=== PATIENT | female | born 1945 | race Caucasian/White ===

== ENCOUNTER → 2017-04-04 | Outpatient (CLI) | payer OTHER ==
[~2017-04-04] MED LIST: ALL300 PO; APIX1TAB3 PO; ASPI81TA28 PO; CALCTAB7 PO; CRDCD180 PO; FOLI1TAB7 PO; FRS/40 PO; INSU1INJ7 SC; INSUINJ14 SC; LEVO25TA PO; LSN25 PO; LUTE20CA PO; MAGN400T6 PO; METO25TA56 PO; MULT-190 PO; MULT-506 PO; MYCO500T5 PO; OMEG10007 PO; SIMV-151 PO; TACR0.5C3 PO; TACR1CAP7 PO; ZNT150 PO
--- NOTE | 2017-04-04 11:53 | DIAGNOSTIC IMAGING REPORT ---
CHEST 2 VIEWS ROUTINE CLINICAL HISTORY: Cough. Kidney transplant. COMPARISON STUDY: Chest radiograph November 11, 2016. FINDINGS: Lung volumes are normal. There is no pneumothorax or pleural effusion. There is mild right lower lung opacity and interstitial thickening. There is minimal left basilar opacity which favors atelectasis. Cardiac size is normal. Mediastinal contours are normal. Note is made of right hilar prominence. IMPRESSION: 1. Mild right lower lung opacity with interstitial thickening. An infectious process such as bronchopneumonia is favored. Asymmetric pulmonary edema could appear similar although is considered less likely. Radiographic follow-up to ensure resolution is recommended. 2. Right hilar prominence which is probably due to pulmonary vessels although an enlarged lymph node could appear similar and this could be assessed on subsequent chest radiograph. Electronically signed by: Burak Solis M.D. 04/04/2017 11:52 AM Dictated Date/Time: 04/04/2017 11:49 AM
== END | disposition home or self-care (01) ==
LOC: C.RAD1850 11:20
PROVIDERS: ATTEND Physician Assistant
DX: R05 Cough (principal); Z94.0 Kidney transplant status

== ENCOUNTER → 2017-05-02 | Outpatient (CLI) | payer OTHER ==
[2017-05-02 09:58] LABS: ESTIMATED AVERAGE GLUCOSE 134 mg/dl; HA1C FLAG Normal (Normal)
[2017-05-02 09:59] LABS: ALT/SGPT 24 U/L (12-78); AST/SGOT 19 U/L (15-37); CHOLESTEROL 99 mg/dl (0-200); CHOLESTEROL/HDL RATIO 3.8; HDL CHOLESTEROL 26 mg/dl; TRIGLYCERIDES 379 mg/dl (0-150); VERY LOW DENSITY LIPOPROT CALC 76 mg/dl
[2017-05-02 10:24] LABS: RATIO 440.4 mcg/mg (0-30.0)
--- NOTE | 2017-05-20 11:48 | CODING QUERY MEDICAL NECESSITY ---
SUPPORTING DIAGNOSIS NEEDED Dr. Isidro, A supporting diagnosis is required for the test/procedure performed on this patient in order for us to be reimbursed by the patient's insurance. Please provide a supporting diagnosis for the following test/procedure listed below next to the test name along with your signature. *If there is no additional diagnosis for this patient that would support the following test/procedure please document that below next to the test/procedure. Test(s)/Procedure(s) that require a supporting diagnosis: * [id number] GLYCATED HEMOGLOBIN DIAGNOSIS: DATE OF SERVICE: 05/02/17 Provider Signature: Date: Thank you Nikhil Bernal [facility] Information Management Once completed, please kindly fax back to [phone] For questions please call [phone]
== END | disposition home or self-care (01) ==
LOC: C.LAB1850 07:40
PROVIDERS: ATTEND Internal Medicine
DX: J20.9 Acute bronchitis, unspecified (principal); R93.8 Abnormal findings on diagnostic imaging of other specified body structures; E11.9 Type 2 diabetes mellitus without complications; Z48.298 Encounter for aftercare following other organ transplant; Z94.0 Kidney transplant status; Z51.81 Encounter for therapeutic drug level monitoring; Z79.899 Other long term (current) drug therapy

== ENCOUNTER → 2017-05-02 | Outpatient (CLI) | payer OTHER ==
--- NOTE | 2017-05-02 10:16 | DIAGNOSTIC IMAGING REPORT ---
CHEST 2 VIEWS ROUTINE CLINICAL HISTORY: R93.8 Abnormal chest [id number] COMPARISON STUDY: 04/04/2017 FINDINGS: The cardiac and mediastinal contours are normal. There is no evidence of focal pulmonary consolidation. There is no evidence of failure. No pleural effusions are visualized.[ There is a mild thoracic dextroscoliosis. There has been interval resolution of the previously described right basal airspace opacities. IMPRESSION: No active disease in the chest. Electronically signed by: Matthew Donaldson M.D. 05/02/2017 10:14 AM Dictated Date/Time: 05/02/2017 10:14 AM
== END | disposition home or self-care (01) ==
LOC: C.RAD1850 10:03
PROVIDERS: ATTEND Physician Assistant
DX: R93.8 Abnormal findings on diagnostic imaging of other specified body structures (principal)

== ENCOUNTER → 2017-08-09 | Outpatient (CLI) | payer OTHER ==
[~2017-08-09] MED LIST changes: -METO25TA56 PO
[2017-08-09 09:38] LABS: HEMATOCRIT 43.9 % (37-47); MEAN CELL VOLUME 95.6 fL (80-100); MEAN CORPUSCULAR HEMOGLOBIN 30.3 pg (25-34); MEAN CORPUSCULAR HGB CONC 31.7 g/dl (32-36); MEAN PLATELET VOLUME 12.4 fL (7.4-10.4); PLATELET COUNT 147 K/uL (130-400); RED BLOOD COUNT 4.59 M/uL (4.2-5.4); WHITE BLOOD COUNT 8.68 K/uL (4.8-10.8)
[2017-08-09 09:49] LABS: BLOOD UREA NITROGEN 27 mg/dl (7-18); BUN/CREATININE RATIO 33.2 (10-20); CALCIUM 9.9 mg/dl (8.5-10.1); CARBON DIOXIDE 28 mmol/L (21-32); CHLORIDE 108 mmol/L (98-107); CREATININE 0.82 mg/dl (0.60-1.20); GLUCOSE 122 mg/dl (70-99); MAGNESIUM 1.7 mg/dl (1.8-2.4); PHOSPHORUS 2.8 mg/dl (2.5-4.9); POTASSIUM 4.2 mmol/L (3.5-5.1); SODIUM 142 mmol/L (136-145)
[2017-08-09 09:52] LABS: ESTIMATED AVERAGE GLUCOSE 123 mg/dl; HA1C FLAG Normal (Normal)
[2017-08-11 05:31] LABS: FK506 TACROLIMUS HIGHLY SENS 7.7 MCG/L (5-20)
== END | disposition home or self-care (01) ==
LOC: C.LAB1850 07:56
PROVIDERS: ATTEND Internal Medicine
DX: Z48.298 Encounter for aftercare following other organ transplant (principal); Z09 Encounter for follow-up examination after completed treatment for conditions other than malignant neoplasm; Z94.0 Kidney transplant status; E11.9 Type 2 diabetes mellitus without complications; Z79.899 Other long term (current) drug therapy

== ENCOUNTER → 2017-09-02 | Outpatient (CLI) | payer OTHER ==
[2017-09-02 11:02] LABS: ALT/SGPT 22 U/L (12-78); BLOOD UREA NITROGEN 21 mg/dl (7-18); BUN/CREATININE RATIO 26.2 (10-20); CALCIUM 9.9 mg/dl (8.5-10.1); CARBON DIOXIDE 29 mmol/L (21-32); CHLORIDE 107 mmol/L (98-107); CREATININE 0.81 mg/dl (0.60-1.20); GLUCOSE 136 mg/dl (70-99); POTASSIUM 4.2 mmol/L (3.5-5.1); SODIUM 143 mmol/L (136-145)
[2017-09-02 11:13] LABS: ALB/GLOB RATIO 1.2 (0.9-2); ALKALINE PHOSPHATASE 78 U/L (45-117); AST/SGOT 17 U/L (15-37)
== END | disposition home or self-care (01) ==
LOC: C.LAB1850 09:44
PROVIDERS: ATTEND Internal Medicine Endocrinology, Diabetes & Metabolism
DX: M81.0 Age-related osteoporosis without current pathological fracture (principal); E03.9 Hypothyroidism, unspecified

== ENCOUNTER → 2017-09-05 | Outpatient (CLI) | payer OTHER ==
[2017-09-05 12:55] LABS: CALCIUM URINE 14.8 mg/dl
== END | disposition home or self-care (01) ==
LOC: C.LAB1850 10:43
PROVIDERS: ATTEND Internal Medicine Endocrinology, Diabetes & Metabolism
DX: M81.0 Age-related osteoporosis without current pathological fracture (principal)

== ENCOUNTER → 2017-09-12 | Outpatient (CLI) | payer OTHER ==
--- NOTE | 2017-09-13 07:07 | DIAGNOSTIC IMAGING REPORT ---
NUCLEAR MEDICINE PARATHYROID SCAN CLINICAL HISTORY: E03.9 [id number] Neoplasm of uncertain behavior of skin. COMPARISON STUDY: No previous studies for comparison. TECHNIQUE: 22 mCi of technetium 99m Cardiolite was injected IV at 2:55 PM on September 12, 2017. Planar and SPECT imaging was performed 15 minutes and 3 hours following injection. FINDINGS: Expected radiotracer deposition is noted on the early and delayed images. Moderate radiotracer uptake is identified within the thyroid gland with mild retention No significant radiotracer retention is identified on the delayed images. No areas of abnormal radiotracer uptake are identified. IMPRESSION: 1. No areas of abnormal radiotracer uptake. 2. Moderate radiotracer uptake by the thyroid gland with mild retention. Electronically signed by: Burak Solis M.D. 09/13/2017 7:06 AM Dictated Date/Time: 09/12/2017 7:06 PM
== END | disposition home or self-care (01) ==
LOC: C.NUCL 14:36
PROVIDERS: ATTEND Internal Medicine Endocrinology, Diabetes & Metabolism
DX: D48.5 Neoplasm of uncertain behavior of skin (principal); E03.9 Hypothyroidism, unspecified

== ENCOUNTER → 2017-09-26 | Outpatient (CLI) | payer OTHER ==
[~2017-09-26] MED LIST changes: +METO25TA56 PO
--- NOTE | 2017-09-27 07:25 | MAMMOGRAPHY REPORT ---
BILATERAL DIGITAL SCREENING MAMMOGRAM TOMOSYNTHESIS WITH CAD: 09/26/2017 CLINICAL HISTORY: Routine screening. Patient has no complaints. TECHNIQUE: Breast tomosynthesis in addition to standard 2D mammography was performed. Current study was also evaluated with a Computer Aided Detection (CAD) system. COMPARISON: Comparison is made to exams dated: 09/23/2016 mammogram, 09/22/2015 mammogram, 4 mammogram, 09/19/2013 mammogram, 09/13/2012 mammogram, and 09/06/2011 mammogram - [facility]. BREAST COMPOSITION: There are scattered areas of fibroglandular density in both breasts. FINDINGS: There is a 4 mm ovoid mass in the upper outer middle one third of the right breast, for wh ich additional targeted ultrasound and possible additional mammographic views are recommended. There are scattered benign coarse calcifications bilaterally. A tortuous, ectatic and partially calc ified vessel is again seen in the far superior left breast on the MLO view. No other suspicious mass, architectural distortion or cluster of microcalcifications is seen. IMPRESSION: ACR BI-RADS CATEGORY 0: INCOMPLETE EVALUATION: NEED ADDITIONAL IMAGING EVALUATION The newly visualized 4 mm ovoid mass in the upper outer right breast needs additional evaluation. The patient will be called to schedule an appointment. Approximately 10% of breast cancers are not detected with mammography. A negative mammographic report should not delay biopsy if a clinically suggestive mass is present. Porsche Armas M.D. ay/:09/26/2017 14:47:28 Executive Services Administrator: Melina GREENFIELD(Juarez)(M), [facility] letter sent: Addl Imaging 0 BI-RADS Code: ACR BI-RADS Category 0: Incomplete Evaluation: Need Additional Imaging Evaluation
== END | disposition home or self-care (01) ==
LOC: C.MAMM 09:22
PROVIDERS: ATTEND Internal Medicine
DX: Z12.31 Encounter for screening mammogram for malignant neoplasm of breast (principal); N63.11 Unspecified lump in the right breast, upper outer quadrant

== ENCOUNTER 2017-12-20 14:36 | Emergency (ER) | payer OTHER ==
[~2017-12-20] VITALS: Ht 162.6 cm; Wt 87.0 kg
[~2017-12-20 14:36] MED LIST changes: -FOLI1TAB7 PO; +FOLI1TAB8 PO; -LUTE20CA PO; -MAGN400T6 PO; -MULT-190 PO; -SIMV-151 PO
[2017-12-20 14:39] VITALS: TEMP 36.4; Ht 162.6 cm; Wt 87.0 kg
[2017-12-20 15:23] LABS: BASO % 0.5 %; BASO ABS # 0.04 K/uL (0-0.2); EOS % 4.5 %; EOS ABS # 0.37 K/uL (0-0.5); HEMATOCRIT 40.3 % (37-47); HEMOGLOBIN 13.6 g/dL (12.0-16.0); IG# 0.06 K/uL (0.00-0.02); LYMPH % 26.3 %; LYMPH ABS # 2.16 K/uL (1.2-3.4); MEAN CELL VOLUME 94.2 fL (80-100); MEAN CORPUSCULAR HEMOGLOBIN 31.8 pg (25-34); MEAN CORPUSCULAR HGB CONC 33.7 g/dl (32-36); MEAN PLATELET VOLUME 11.1 fL (7.4-10.4); MONO ABS # 0.49 K/uL (0.11-0.59); NEUT ABS # 5.08 K/uL (1.4-6.5); PLATELET COUNT 140 K/uL (130-400); RED CELL DISTRIBUTION WIDTH CV 16.8 % (11.5-14.5); RED CELL DISTRIBUTION WIDTH SD 57.1 fL (36.4-46.3)
[2017-12-20 15:42] LABS: CALCIUM 10.2 mg/dl (8.5-10.1); CREATININE 0.78 mg/dl (0.60-1.20); POTASSIUM 3.8 mmol/L (3.5-5.1)
--- NOTE | 2017-12-20 15:45 | DIAGNOSTIC IMAGING REPORT ---
DUPLEX HEMODIALYSIS ACCESS CLINICAL HISTORY: L upper arm swelling pain. Edema. TECHNIQUE: Venous Doppler and real-time ultrasound COMPARISON STUDY: None FINDINGS: Patient's arteriovenous fistula is patent. Superior to the fistula involving the muscular structures the upper arm is a 7 x 2 x 2.5 cm intramuscular hematoma. No additional collections are identified. Visualized venous structures are patent. IMPRESSION: 1. Intramuscular hematoma superior to the patient's AV fistula measuring 7 x 2.5 cm. 2. The fistula itself is patent. The above report was generated using voice recognition software. It may contain grammatical, syntax or spelling errors. Electronically signed by: Jean Carlos Ortega M.D. 12/20/2017 3:44 PM Dictated Date/Time: 12/20/2017 3:42 PM
[2017-12-20 15:46] LABS: INR 1.1 (0.9-1.1); PTT PATIENT 30.3 SECONDS (21.0-31.0)
[2017-12-20 16:32] VITALS: BP 148/77; PULSE 68; O2SAT 97
[2017-12-20] MEDS ORDERED: LISI-461 PO (16:40)
[2017-12-20] MEDS ORDERED: DILT240C48 PO (16:40)
[2017-12-20] MEDS ORDERED: TACR1CAP PO (16:40)
[2017-12-20] MEDS ORDERED: FEXO1TAB49 PO (16:40)
[2017-12-20] MEDS ORDERED: INSU1INJ2 SQ (16:40)
[2017-12-20] MEDS ORDERED: LEVO50TA6 PO (16:40)
[2017-12-20] MEDS ORDERED: INSDGIPEN SQ (16:40)
[2017-12-20] MEDS ORDERED: LSX40 PO (16:40)
[2017-12-20] MEDS ORDERED: ZOLE5INJ INJ (16:42)
[2017-12-20] MEDS ORDERED: SIMV-151 PO (16:43)
[2017-12-20] MEDS ORDERED: LUTE20CA PO (16:43)
[2017-12-20] MEDS ORDERED: MULT-190 PO (16:43)
[2017-12-20] MEDS ORDERED: MAGN400T6 PO (16:43)
--- NOTE | 2017-12-21 19:57 | EMERGENCY ROOM VISIT NOTE ---
ED Visit Note First contact with patient: 14:46 Chief Complaint: Swelling and bruising to my left arm. History of Present Illness: Ms. Page is a 72-year-old white female who ambulates into the ED accompanied by male friend complaining of swelling and bruising to the left arm. Patient had a fistula inserted into her left upper arm prior to her kidney transplant to receive dialysis. Patient reports approximately 1.5 weeks ago she noted some bruising in the area of her fistula. Since that time she has noted increase in bruising, swelling and pain in the area. She was seen by her grocery clerk marking today who encouraged her to come to the ED for further evaluation and ultrasound. Associated with the swelling patient also reports that she has been having intermittent pain in the area of the swelling just superior to her fistula site. Currently she rates her discomfort 3/10 but does report intermittently gets much more severe. Currently she describes her pain as a pressure sensation but does report intermittently when her pain becomes severe its more of a sharp sensation. She has not identified any aggravating or alleviating factors related to the pain or swelling. She has not taken any medications for pain or swelling prior to arrival at the hospital. She denies any associated symptoms including elbow pain, recent trauma to the elbow/fistula location, arm weakness/numbness/tingling, previous complications of her fistula. Review of Systems: As noted above in history of present illness. Past Medical History: As previously noted and (1) Acute maxillary sinusitis (2) Atrial Fibrillation (3) Benign essential hypertension (4) Diabetes mellitus type 2 (5) Hyperlipidemia Nec/Nos (6) Hypertension Nos (7) Osteoporosis Nos Surgical Problems: (1) History of renal transplant (2) Kidney Transplant Status Current Medications: Medications Dose Route/Sig Max Daily Dose Days Date Category Dose Instructions Reclast (Zoledronic Acid) 5 Mg/100 Ml Inj 1 Dose INJ YEARLY 12/20/17 Reported Prograf (Tacrolimus) 1 Mg Cap 1 Mg PO AMPM 12/20/17 Reported Lisinopril 10 Mg Tab 10 Mg PO DAILY 12/20/17 Reported Levothyroxine Sodium 50 Mcg Tab 50 Mcg PO QAM 12/20/17 Reported Novolog Penfill (Insulin Aspart) 100 Unit/Ml Inj SQ ACHS PRN 12/20/17 Reported Lantus Solostar (Insulin Glargine) 100 Unit/Ml Inj 5-10 Units SQ QAM 12/20/17 Reported ACCORDING TO BSG Furosemide 40 Mg Tab 40 Mg PO BID 12/20/17 Reported Cartia Xt (Diltiazem Hcl Coated Beads) 240 Mg Cap 240 Mg PO DAILY 12/20/17 Reported Mariya Allergy (Fexofenadine Hcl) 180 Mg Tab 1 Tab PO DAILY 14 12/20/17 Reported Lopressor (Metoprolol Tartrate) 25 Mg Tab 1 Tab PO BID 90 09/16/17 Reported Ranitidine HCl 150 Mg Tab 150 Mg PO BID 01/19/15 Rx Mycophenolate Mofetil 500 Mg Tab 500 Mg PO BID 11/25/14 Reported Aspirin Ec (Aspirin) 81 Mg Tab 81 Mg PO DAILY 11/25/14 Reported Allopurinol 300 Mg Tab 300 Mg PO BID 11/25/14 Reported Eliquis (Apixaban) 5 Mg Tab 5 Mg PO BID 11/25/14 Reported Simvastatin 20 Mg Tab 20 Mg PO QPM 11/11/14 Reported Ocuvite Preservision (Multivitamins/Minerals) 1 Tab Tab 1 Tab PO BID 11/11/14 Reported Mag-Ox (Magnesium Oxide) 400 Mg Tab 400 Mg PO BID 11/11/14 Reported Lutein 20 Mg Cap 20 Mg PO DAILY 11/11/14 Reported Folvite (Folic Acid) 1 Mg Tab 1 Mg PO DAILY 05/07/12 Reported Caltrate 600 Plus (Calcium Carbonate-Vitamin D W/) 1 Tab Tab 1 Tab PO BID 05/07/12 Reported Sharon-3 (Fish Oil) 1 Ea Cap 2,000 Mg PO BID 10/30/10 Reported Multivitamin (Multivitamins) Tab 1 Tab PO DAILY 05/23/06 Reported Allergies to Medications: Patient denies. Social History: Patient is not currently employed; she feels safe in her home environment; she denies tobacco use. Physical Examination: Vital Signs: Date Time Temp Pulse Resp B/P (MAP) Pulse Ox O2 Delivery O2 Flow Rate FiO2 12/20/17 16:32 68 16 148/77 97 12/20/17 14:39 36.4 82 16 190/107 97 Room Air GENERAL: 72-year-old female in mild distress due to pain, nontoxic-appearing, afebrile and hemodynamically stable. Patient does appear anxious. NEUROLOGICAL: Awake, alert and oriented to person, place and time. Answering questions appropriately and following commands. Normal gait. Good hand eye coordination. No focal motor or sensory deficits. SKIN: Warm, dry and pink. THORAX: Lungs sounds are clear to auscultation and equal bilaterally with symmetrical chest wall. ABDOMEN: Soft and nontender. Positive bowel sounds in all quadrants. No guarding, rigidity or organomegaly. LEFT UPPER EXTREMITY: No gross bony deformity. No tenderness in the shoulder, elbow, forearm, wrist or hand. Over the anterior aspect of the arm in the distal humerus area patient fistula is located. The fistula is soft and nontender. There is a positive thrill. From the mid upper arm to the mid lower arm anteriorly patient has ecchymosis and swelling. Patient has full range of motion of the forearm, wrist or hand. Throughout the extremity the skin was warm and pink and capillary refill is brisk. She is able to distinguish light sensations through all dermatomes. ED Course: Patient is assessed as noted above. Patient's medication list was reviewed. Duplex Hemodialysis Access Ultrasound was reviewed by myself and read by the radiologist showing intramuscular hematoma superior to the patient's AV fistula measuring 7 x 2.5 cm. Fistula patent. Patient was offered pain medication and refused. Patient's case was consulted with Dr. Brooks, vascular surgeon; he recommended office visit in 2 days or return to the ED for severe pain sooner. Patient's case was reviewed with Dr. Jacobs; we agreed on diagnostic approach, treatment, disposition and plan. Patient was educated about today's findings and instructed on her treatment plan ; she verbalized understanding and agreement with this plan. Clinical Impression: Left upper extremity hematoma. Decision-Making: Initially my differential diagnosis I considered hematoma, abscess, malfunctioning fistula and other causes. Disposition: Patient discharged home in stable condition accompanied by her ; prior to departure she was reassessed and subjectively reported she was feeling the same. Plan: Patient was encouraged to continue her current medications as prescribed. Patient was encouraged use 650 mg of acetaminophen every 6 hours as needed for pain. Patient was encouraged to avoid heavy lifting. Patient was encouraged cold Dr. Brooks's office for follow-up or return to the ED for worsening/severe pain. Patient was encouraged return also to the ED for any new/concerning symptoms.
--- NOTE | 2017-12-22 00:23 | EMERGENCY ROOM VISIT NOTE ---
ED Visit Note First contact with patient: 14:46 HPI: [id number] with pmhx ESRD with LUE hematoma. Plan: US demonstrates Intramuscular hematoma superior to the patient's AV fistula measuring 7 x 2.5cm. Fistula patent. PA d/w Dr. Brooks, vascular surgery , recs: OK for d/c with outpatient f/u. Patient left department before I was able to personally examine the patient. I reviewed the patient's past medical history, medications, and visit nursing notes. I discussed the case with the physician freezer assistant and agree with the findings and plan as documented in the physician assistants note.
== END 2017-12-20 16:35 | disposition home or self-care (01) ==
LOC: C.EDB 14:38 → C.EDD 16:35
DX: T82.868A Thrombosis due to vascular prosthetic devices, implants and grafts, initial encounter (principal); Y83.2 Surgical operation with anastomosis, bypass or graft as the cause of abnormal reaction of the patient, or of later complication, without mention of misadventure at the time of the procedure; Z94.0 Kidney transplant status; Z79.899 Other long term (current) drug therapy; E11.9 Type 2 diabetes mellitus without complications; E78.5 Hyperlipidemia, unspecified; M79.602 Pain in left arm

== ENCOUNTER 2018-01-04 07:19 | Day surgery (SDC) | payer OTHER ==
[2017-12-30 09:56] VITALS: Ht 162.6 cm; Wt 86.2 kg
--- NOTE | 2017-12-30 10:33 | PAT Medication Instructions ---
Service Date Dec 30, 2017. Current Home Medication List Allopurinol (Allopurinol), 300 MG PO BID Apixaban (Eliquis), 5 MG PO BID Aspirin (Aspirin Ec), 81 MG PO QAM Calcium Carbonate-Vitamin D W/ (Caltrate 600 Plus), 1 TAB PO BID Diltiazem Hcl Coated Beads (Cartia Xt), 240 MG PO QAM Fexofenadine Hcl (Mariya Allergy), 1 TAB PO DAILY PRN for PRN Fish Oil ([place]-3), 2,000 MG PO BID Folic Acid (Folvite), 1 MG PO QAM Furosemide (Furosemide), 40 MG PO BID Heparin Sod (Porcine) (Heparin Sodium), 1 DOSE SQ UD Insulin Aspart (Novolog Penfill), SQ ACHS PRN for SLIDING SCALE Insulin Glargine (Lantus Solostar), 5-10 UNITS SQ QAM Levothyroxine Sodium (Levothyroxine Sodium), 50 MCG PO QAM Lisinopril (Lisinopril), 10 MG PO HS Lutein (Lutein), 20 MG PO QPM Magnesium Oxide (Mag-Ox), 400 MG PO BID Metoprolol Tartrate (Lopressor) (Lopressor), 1 TAB PO BID Multivitamin (Multivitamin), 1 TAB PO QAM Mycophenolate Mofetil (Cellcept), 1 TAB PO BID Ocuvite Preservision (Ocuvite Preservision), 1 TAB PO BID Ranitidine (Zantac), 150 MG PO BID Simvastatin (Simvastatin), 20 MG PO QPM Tacrolimus (Prograf), 1 MG PO AMPM Zoledronic Acid (Reclast), 1 DOSE INJ YEARLY Medication Instructions For Your Scheduled Surgery - Continue as directed: Zoledronic Acid (Reclast), 1 DOSE INJ YEARLY - Hold the following medications starting 12/30/17: Fish Oil ([place]-3), 2,000 MG PO BID - Check with surgeon and prescribing physician for instructions: Heparin Sod (Porcine) (Heparin Sodium), 1 DOSE SQ UD (prescribed for perioperative transition) Apixaban (Eliquis), 5 MG PO BID Aspirin (Aspirin Ec), 81 MG PO QAM Tacrolimus (Prograf), 1 MG PO AMPM Mycophenolate Mofetil (Cellcept), 1 TAB PO BID - Hold the following medications 24 hours prior to surgery: Lisinopril (Lisinopril), 10 MG PO HS - Hold the following medications the morning of surgery: Calcium Carbonate-Vitamin D W/ (Caltrate 600 Plus), 1 TAB PO BID Fexofenadine Hcl (Mariya Allergy), 1 TAB PO DAILY PRN for PRN Folic Acid (Folvite), 1 MG PO QAM Furosemide (Furosemide), 40 MG PO BID Insulin Aspart (Novolog Penfill), SQ ACHS PRN for SLIDING SCALE Magnesium Oxide (Mag-Ox), 400 MG PO BID Multivitamin (Multivitamin), 1 TAB PO QAM Ocuvite Preservision (Ocuvite Preservision), 1 TAB PO BID - Take the following medications the morning of surgery with a sip of water: Ranitidine (Zantac), 150 MG PO BID Metoprolol Tartrate (Lopressor) (Lopressor), 1 TAB PO BID Levothyroxine Sodium (Levothyroxine Sodium), 50 MCG PO QAM Allopurinol (Allopurinol), 300 MG PO BID Diltiazem Hcl Coated Beads (Cartia Xt), 240 MG PO QAM - Take the following medications as scheduled the night before surgery: Tacrolimus (Prograf), 1 MG PO AMPM Ranitidine (Zantac), 150 MG PO BID Simvastatin (Simvastatin), 20 MG PO QPM Ocuvite Preservision (Ocuvite Preservision), 1 TAB PO BID Mycophenolate Mofetil (Cellcept), 1 TAB PO BID Metoprolol Tartrate (Lopressor) (Lopressor), 1 TAB PO BID Lutein (Lutein), 20 MG PO QPM Insulin Aspart (Novolog Penfill), SQ ACHS PRN for SLIDING SCALE Furosemide (Furosemide), 40 MG PO BID Fexofenadine Hcl (Mariya Allergy), 1 TAB PO DAILY PRN for PRN (if needed) Allopurinol (Allopurinol), 300 MG PO BID - For Insulin Dependent Diabetic patients: Test blood sugar A.M. of surgery. - If Blood sugar greater than 150, take half of your regular dose of: Insulin Glargine (Lantus Solostar),take half of your normal dose - If Blood sugar less than 150, do not take any: Insulin Glargine (Lantus Solostar), 5-10 UNITS SQ QAM If you have any questions please call us at [phone] or [phone] or [phone]
[2017-12-30 11:31] LABS: BASO % 0.6 %; BASO ABS # 0.04 K/uL (0-0.2); EOS % 3.9 %; EOS ABS # 0.27 K/uL (0-0.5); HEMATOCRIT 39.9 % (37-47); HEMOGLOBIN 13.2 g/dL (12.0-16.0); IG# 0.01 K/uL (0.00-0.02); LYMPH % 20.3 %; LYMPH ABS # 1.42 K/uL (1.2-3.4); MEAN CELL VOLUME 96.1 fL (80-100); MEAN CORPUSCULAR HEMOGLOBIN 31.8 pg (25-34); MEAN CORPUSCULAR HGB CONC 33.1 g/dl (32-36); MEAN PLATELET VOLUME 11.6 fL (7.4-10.4); MONO % 7.6 %; MONO ABS # 0.53 K/uL (0.11-0.59); NEUT % 67.5 %; NEUT ABS # 4.73 K/uL (1.4-6.5); PLATELET COUNT 138 K/uL (130-400); RED CELL DISTRIBUTION WIDTH CV 16.4 % (11.5-14.5)
[2017-12-30 11:40] LABS: CREATININE 0.88 mg/dl (0.60-1.20); INR 1.1 (0.9-1.1); PTT PATIENT 29.4 SECONDS (21.0-31.0)
[2017-12-30 11:41] LABS: POTASSIUM 4.3 mmol/L (3.5-5.1)
[~2018-01-04] VITALS: Ht 162.6 cm; Wt 86.2 kg
--- NOTE | 2018-01-04 06:00 | History and Physical ---
History & Physical Date of Service Jan 04, 2018. History & Physical CC: Venous aneurysm left arm fistula HPI: Ms. Page states that she had a fistula created 20 some years ago and had it utilized for hemodialysis for about a year before getting a kidney transplant. She states that her renal transplant has been working well and she has not had to use her AV fistula in over 20 years. She does keep it there; however, in case something would happen where she did require its use. She states about a week ago, she developed an area of purple ecchymosis on her left upper arm that she was somewhat concerned about. She states that she did not hit her arm on anything that she was aware of and that ecchymosis like this has never occurred before. She states that the area became more and more purple and extended down to her elbow and proximal forearm, as well as becoming painful and swollen. Due to these concerns, she went to see her jury consultant who had her evaluated to determine whether her AV fistula was the problem. The ultrasound performed in the emergency department at [facility] did not indicate any active bleeding, but it did demonstrate a rather significant left upper arm hematoma. The patient also complains of a left arm arteriovenous fistula venous aneurysm which she states has been there for a long time. Denies other complaints at this time including headaches, fevers, chills, dizziness, chest pain, shortness of breath, abdominal pain, nausea, vomiting, diarrhea, constipation, dysuria, hematuria, rest pain, claudication, nonhealing wounds or ulcers or other complaints. ALLERGIES: ADHESIVE BANDAGES. HOME MEDICATIONS: Reconciled in the chart and include the following: Mariya, allopurinol, apixaban, aspirin, caltrate, CellCept, diltiazem, fish oil, folic acid, furosemide, Lantus, levothyroxine, lisinopril, Lutein, magnesium oxide, metoprolol tartrate, multivitamin, NovoLog 8, Ocuvite PreserVision, Prograf, ranitidine, and simvastatin. PAST MEDICAL HISTORY: Positive for insulin-dependent diabetes mellitus, hyperlipidemia, end-stage renal disease, renal transplant recipient, gout, hypertension, coronary artery disease, thyroid disease and atrial fibrillation. PAST SURGICAL HISTORY: Positive for renal transplant in 1995, left upper extremity AV fistula creation in 1994, appendectomy, cholecystectomy, total hysterectomy, repair of incisional hernia and tonsillectomy. FAMILY HISTORY: Positive for renal disease in her father and paternal relatives. SOCIAL HISTORY: Negative for a history of tobacco, alcohol or drug use. REVIEW OF SYSTEMS: Negative for fatigue, fevers, sweats, weight loss, exercise intolerance, abnormal moles or rashes, vision changes or photophobia, ear pain, as well as sore throat, cough, shortness of breath, chest pain, palpitations, edema or syncope, abdominal pain, nausea, vomiting, diarrhea, constipation, dysuria, hematuria, muscle weakness, headaches, dizziness, numbness or seizures. PHYSICAL EXAMINATION: The patient's vital signs are as follows: Blood pressure 138/68 in the right arm, heart rate 72, and oxygen 97% on room air. The patient is 162.56 cm tall and weighs 86.1 kilograms. Constitutional: In general, patient is a healthy-appearing, for age, well-nourished, well- developed elderly female in no acute distress. She ambulates without assistance and is active, alert and oriented x4 with normal recent and remote memory. Head is normocephalic, atraumatic. Eyes are EOMI. ENMT demonstrates no hearing loss, rhinorrhea or pharyngeal erythema. Her neck is supple, nontender with midline trachea without masses or crepitus. Lung exam demonstrates no dyspnea. They are clear to auscultation bilaterally, although somewhat decreased throughout. Cardiovascular exam demonstrates a nondisplaced apical impulse. Irregular rhythm. She has no murmurs or rubs noted, however. Peripheral pulses full and equal in all extremities unless otherwise noted, specifically they are normal in her carotid, brachial, radial and femoral pulses. Her lower extremity distal pulses are +1. She has brisk capillary refill, no signs of ischemia. Of note, her left upper arm AV fistula has an excellent thrill and bruit but does appear to have a rather large venous aneurysm of the proximal end. She has old ecchymosis throughout her left upper arm antecubital and proximal forearm area. This is soft and without erythema. This is mildly tender and the appearance is in various stages of resolution. Her abdomen is soft, nontender with normoactive bowel sounds in all 4 quadrants without guarding or rebound. There is no flank or CVA tenderness. Her musculoskeletal exam demonstrates normal tone and strength for age. Bilateral upper extremities demonstrate no cyanosis, edema, varicosities or ulcers. The patient's bilateral lower extremities demonstrate no cyanosis, edema, clubbing, varicosities, or ulcers. Neurologic: Grossly intact cranial nerves and grossly intact sensation. ASSESSMENT AND PLAN: End-stage renal disease. 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 Spontaneous bleed of her left upper arm. PLAN: Patient is admitted for a revision of her left arm av fistula. I have discussed the risks options and benefits of the procedure with the patient. The patient understands the risks options and benefits and agrees to the procedure.
[~2018-01-04 07:19] MED LIST changes: +CEFAZOLIN 2000MG IV PUSH 15 ML IV SCH; -CRDCD180 PO; +DILT240C48 PO; +FEXO1TAB49 PO; -FRS/40 PO; +HPRI5M SQ; +INSDGIPEN SQ; +INSU1INJ2 SQ; -INSU1INJ7 SC; -INSUINJ14 SC; +LACTATED RINGER'S 1000ML 1,000 ML IV SCH; -LEVO25TA PO; +LEVO50TA6 PO; +LISI-461 PO; -LSN25 PO; +LSX40 PO; +LUTE20CA PO; +MAGN400T6 PO; +MULT-190 PO; +MYCO500T4 PO; -MYCO500T5 PO; +SIMV-151 PO; +SODIUM CHLORIDE 0.9% 1000ML IV SCH; -TACR0.5C3 PO; +TACR1CAP PO; -TACR1CAP7 PO; -ZNT150 PO; +ZNTT/150 PO; +ZOLE5INJ INJ
[2018-01-04] MEDS ORDERED: PROPOFOL IV EMULSION 10 MG/ML 20 ML VIAL IV ONE ×2 (08:10→09:45)
[2018-01-04] MEDS ORDERED: LIDOCAINE HCL 2% 2 ML VIAL (20MG/ML) ONE (08:10)
[2018-01-04] MEDS ORDERED: FENTANYL CITRATE INJ 50 MCG/1 ML 2 ML VIAL ONE (08:11)
[2018-01-04 08:18] VITALS: BP 153/70; PULSE 69; TEMP 36.7; O2SAT 98
[2018-01-04] MEDS ORDERED: EpHEDrine SULFATE INJ 50 MG/ML AMP IV PRN (08:30)
[2018-01-04] MEDS ORDERED: FENTANYL CITRATE INJ 50 MCG/1 ML 2 ML VIAL IV PRN (08:30)
[2018-01-04] MEDS ORDERED: ATROPINE SULFATE 0.1 MG/ML 5ML SYR IV PRN (08:30)
[2018-01-04 08:38] LABS: CALCIUM 9.4 mg/dl (8.5-10.1); CREATININE 0.81 mg/dl (0.60-1.20); POTASSIUM 3.7 mmol/L (3.5-5.1)
--- NOTE | 2018-01-04 08:41 | History & Physical Bridge Note ---
H&P Re-Evaluation Bridge Note: I have examined the patient, reviewed the History & Physical and in the interval since the performance of the History & Physical I have noted the following changes of clinical significance: No changes noted
[2018-01-04] MEDS ORDERED: THROMBIN FOR SOLN 20000 UNIT KIT ONE (08:46)
[2018-01-04] MEDS ORDERED: HEPARIN SOD (PORCINE) 1000 UNIT/ML 10 ML VIAL ONE ×2 (08:46→09:33)
[2018-01-04] MEDS ORDERED: LIDOCAINE HCL 1% 20 ML VIAL ONE (08:46)
[2018-01-04] MEDS ORDERED: BUPIVACAINE/EPINEPHRINE 0.5% MPF 1:200,000 30 ML VIAL ONE (08:46)
[2018-01-04] MEDS ORDERED: GELATIN SPONGE 12-7MM ONE (08:46)
--- NOTE | 2018-01-04 10:25 | [facility] Post Operative Brief Note ---
Immediate Operative Summary Operative Date Jan 04, 2018. Pre-Operative Diagnosis 1. End-stage renal disease 2. 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 Spontaneous bleed of her left upper arm Post-Operative Diagnosis 1. End-stage renal disease 2. 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 Miguel Angel Brooks Farm Manager Surgeon(s) Lizbet Encarnacion MD ( Vascular Surgeon Estimated Blood Loss 50 mL Findings Consistent with Post-Op Diagnosis Specimens A. Venous Aneurysm Left Upper Extremity Drains None Anesthesia Type MAC Complication(s) none Disposition Accompanied Pt To Recover: no Disposition: Recovery Room / PACU
[2018-01-04] MEDS ORDERED: OXYC-57 PO (10:29)
--- NOTE | 2018-01-04 10:30 | Discharge Instructions ---
Discharge Instructions Date of Service Jan 04, 2018. Visit Reason for Visit: End Stage Renal Disease Discharge Discharge Diagnosis / Problem: Venous aneurysm left arm fistula Discharge Goals Goal(s): Therapeutic intervention Activity Recommendations Activity Limitations: per Instructions/Follow-up section Anesthesia . Post Anesthesia Instructions: If you have had General Anesthesia or IV Sedation: * Do not drive today. * Resume driving when surgeon permits. * Do not make important decisions or sign legal documents today. * Call surgeon for: 1. Temperature elevations greater than 101 degrees F. 2. Uncontrollable pain. 3. Excessive bleeding. 4. Persistent nausea and vomiting. 5. Medication intolerance (nausea, vomiting or rash). * For nausea and vomiting use only clear liquids such as: tea, soda, bouillon until nausea subsides, then gradually increase diet as tolerated. * If you have any concerns or questions, call your surgeon's office. If physician is unavailable and it is an emergency, call 911 or go to the nearest emergency room. . Instructions / Follow-Up Instructions / Follow-Up Call [phone] to schedule a follow up appointment if one not already scheduled. ACTIVITY RECOMMENDATIONS: See Above SPECIAL CARE INSTRUCTIONS: Call your doctor if: * Temperature above 101 degrees * Pain not relieved by pain medicine ordered * There is increased drainage or redness from any incision * You have any unanswered questions or concerns. Diet Recommendations Recommended Home Diet: resume previous diet Procedures Procedures Performed: Revision Left Upper Extremity Arteriovenous Fistula with Interposition Graft Pending Studies Studies pending at discharge: no Medical Emergencies . Who to Call and When: Medical Emergencies: If at any time you feel your situation is an emergency, please call 911 immediately. . Non-Emergent Contact Non-Emergency issues call your: Surgeon . . "Provider Documentation" section prepared by Miguel Angel Brooks. .
--- NOTE | 2018-01-04 11:12 | Anesthesiology Progress Note ---
Anesthesia Post Op Note Date & Time Jan 04, 2018 at 11:12 Vital Signs Pain Intensity: 0 Vital Signs Past 12 Hours Date Time Temp Pulse Resp B/P (MAP) Pulse Ox O2 Delivery O2 Flow Rate FiO2 01/04/18 11:10 36 63 16 141/74 95 Room Air 01/04/18 11:00 63 16 154/72 96 Room Air 01/04/18 10:52 36.2 67 18 143/93 100 Oxymask 10 01/04/18 08:18 36.7 69 18 153/70 (97) 98 Room Air Notes Mental Status: alert / awake / arousable, participated in evaluation Pt Amnestic to Procedure: Yes Nausea / Vomiting: adequately controlled Pain: adequately controlled Airway Patency, RR, SpO2: stable & adequate BP & HR: stable & adequate Hydration State: stable & adequate Anesthetic Complications: no major complications apparent
[2018-01-04 11:16] VITALS: BP 155/74; PULSE 68; TEMP 36.6; O2SAT 96
[2018-01-04 11:55] VITALS: BP 155/73; PULSE 68; TEMP 36.5; O2SAT 97
--- NOTE | 2018-01-04 12:17 | OPERATIVE REPORT ---
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 SURGEON: Dr. Miguel Angel Brooks. FISHING FLOATS ASSEMBLER: Dr. Lizbet Encarnacion. ASSESSMENT: Venous aneurysm of left brachiocephalic arteriovenous fistula. ESTIMATED BLOOD LOSS: 50 mL. ANESTHESIA: Monitored anesthesia care plus local. COMPLICATIONS: None. INDICATIONS: Mrs. Delmi Page is a 72-year-old woman with history of end-stage renal disease status post left arm AV fistula in 1994 status post a renal transplant in 1995, diabetes, hyperlipidemia, hypertension, coronary artery disease, atrial fibrillation who presented with a large aneurysmal portion of the venous segment of her left brachiocephalic AV fistula. She has not used her fistula for over 20 years after her kidney transplant. She says that about a week ago she developed ecchymosis of her left arm that she related to bleeding from her fistula. She additionally has a large aneurysmal segment of the cephalic vein which is uncomfortable for her. For this reason, she was recommended to undergo fistula revision with resection of the aneurysmal segment. The risks, benefits and alternatives were discussed with the patient and she consented to the procedure. DESCRIPTION OF PROCEDURE: The patient was taken to the operating room and placed in supine position. Her left arm was prepped and draped in the usual sterile fashion. A safety timeout was performed and the patient, procedure, and sidedness were correctly identified. Local anesthesia was used to anesthetize the skin overlying the large venous aneurysm just proximal to the crease of the elbow. A 10 cm incision was made overlying the aneurysmal segment of the cephalic vein. Bovie electrocautery was used to divide subcutaneous tissue. The venous aneurysm was dissected circumferentially down to the arteriovenous anastomosis. The brachial artery was identified and also dissected circumferentially. The patient was systemically heparinized with 3000 units of IV heparin. After several minutes, the brachial artery, proximal and distal to the arteriovenous anastomosis was clamped. The clamp was then applied to the cephalic vein. The aneurysm was incised with an 11 blade scalpel and the lumen of the vein was assessed. There are multiple areas of thick calcifications. At this point, it was felt that she would be better served by an interposition bypass instead of the aneurysmorrhaphy as the segment that would require resection was too significant to allow for a primary jsmh-vz-vwlc anastomosis. For this reason, given the caliber of the vein, and bifurcated aortic graft was brought onto the field. The 11 mm limb of a bifurcated graft was used. This was anastomosed to the arterial portion. This was anastomosed to the proximal aspect of the vein nearing the arteriovenous anastomosis. This was completed with a CV5 suture in a running fashion. The remaining cephalic vein was then cut to length to eliminate the calcified portion as well as the aneurysmal portion. The graft was then cut to length, leaving approximately interposition graft of approximately 3 cm. The graft to vein anastomosis was completed with a CV5 [place]-Bo suture in a running fashion. All vessels were back bled prior to completion of the anastomosis, and the graft was de-aired. A single 5-0 stitch was placed at the graft vein anastomosis for hemostasis. Surgicel thrombin was applied to both anastomoses and manual pressure was held. Hemostasis was achieved. Subcutaneous tissues were closed with 3-0 Vicryl in a running fashion. Skin was reapproximated with 4-0 Vicryl in a running subcuticular fashion. Dermabond skin glue was applied to the skin. A palpable thrill was appreciated in the fistula at the close of the case. Sterile dressing was applied. The patient was transferred to the recovery area in stable condition. There were no immediate complications. Dr. Miguel Angel Brooks was present for the entire procedure. I attest to the content of the Intraoperative Record and any orders documented therein. Any exception s are noted below.
== END 2018-01-04 12:13 | disposition home or self-care (01) ==
LOC: C.ACU 07:19
PROVIDERS: ATTEND Surgery Vascular Surgery
DX: T82.898A Other specified complication of vascular prosthetic devices, implants and grafts, initial encounter (principal); Y83.8 Other surgical procedures as the cause of abnormal reaction of the patient, or of later complication, without mention of misadventure at the time of the procedure; E11.9 Type 2 diabetes mellitus without complications; E78.5 Hyperlipidemia, unspecified; N18.6 End stage renal disease; I12.0 Hypertensive chronic kidney disease with stage 5 chronic kidney disease or end stage renal disease; M10.9 Gout, unspecified; I25.10 Atherosclerotic heart disease of native coronary artery without angina pectoris; I48.91 Unspecified atrial fibrillation; E07.9 Disorder of thyroid, unspecified; Z94.0 Kidney transplant status; Z79.899 Other long term (current) drug therapy; Z79.82 Long term (current) use of aspirin; Z79.4 Long term (current) use of insulin

== ENCOUNTER → 2018-02-13 | Outpatient (CLI) | payer OTHER ==
[~2018-02-13] MED LIST changes: -CEFAZOLIN 2000MG IV PUSH 15 ML IV SCH; -LACTATED RINGER'S 1000ML 1,000 ML IV SCH; +OXYC-57 PO; +RANI150T85 PO; -SODIUM CHLORIDE 0.9% 1000ML IV SCH; -ZNTT/150 PO
[2018-02-13 10:01] LABS: HEMOGLOBIN A1C 6.1 % (4.5-5.6)
== END | disposition home or self-care (01) ==
LOC: C.LAB1850 07:29
PROVIDERS: ATTEND Internal Medicine
DX: T82.898A Other specified complication of vascular prosthetic devices, implants and grafts, initial encounter (principal); Y83.2 Surgical operation with anastomosis, bypass or graft as the cause of abnormal reaction of the patient, or of later complication, without mention of misadventure at the time of the procedure

== ENCOUNTER → 2018-03-03 | Outpatient (CLI) | payer OTHER ==
[2018-03-03 10:29] LABS: CREATININE RANDOM URINE 90.6 mg/dl
== END | disposition home or self-care (01) ==
LOC: C.LAB1850 09:13
PROVIDERS: ATTEND Internal Medicine
DX: T82.898A Other specified complication of vascular prosthetic devices, implants and grafts, initial encounter (principal); X58.XXXA Exposure to other specified factors, initial encounter; M81.0 Age-related osteoporosis without current pathological fracture

== ENCOUNTER 2020-04-05 16:15 | Observation (INO) ==
[2020-04-05] MEDS ORDERED: METOPROLOL TARTRATE 1 MG/ML VIAL IV STA (16:42)
[2020-04-05] MEDS ORDERED: SODIUM CHLORIDE 0.9% 500 ML IV SCH (16:45)
--- NOTE | 2020-04-05 16:49 | Emergency Department Note ---
History of Present Illness General Chief Complaint: Hip Pain Stated Complaint: FELL IN SHOWER, LANDED ON RIGHT HIP Time Seen by Provider: 04/05/20 16:25 Source: patient Mode of arrival: ambulatory Limitations: no limitations History of Present Illness Provider Complaint: + fall Onset (ago): 7 hour(s) Loss of Consciousness: + no Location - Extremities: Right: hip Maximum Pain Intensity: 5 Current Pain Intensity: 4 Context: + other (Slipped in shower) Associated symptoms: + denies other symptoms Treatments prior to arrival: + none HPI narrative: The patient is a 74-year-old female who presents to the ED with a chief complaint of some pain in the right hip and right abdomen after slipping in the tub this morning and striking herself on the tub. The patient states that she takes Eliquis. She contacted her doctor and was referred here because of possibility of bleeding. The patient has a history of A. fib. She states that she is not always in A. fib. The patient denies any chest pains or shortness of breath. Denies striking her head. Denies any neurological symptoms. She does have some discomfort in the right hip region just below the buttocks. She also has some mild pain in the right lateral flank/abdomen area. Home Medications Home Medications Medication Instructions Recorded Confirmed Type multivitamin 1 tab PO QAM #0 05/23/06 04/05/20 History omega 4-pfp-lui-fish oil [Fish Oil] 2,000 mg PO BID #0 10/30/10 04/05/20 History folic acid 1 mg PO QAM #0 05/07/12 04/05/20 History lutein 20 mg PO QAM #0 11/11/14 04/05/20 History simvastatin 20 mg PO HS #0 11/11/14 04/05/20 History allopurinol 300 mg PO BID #0 11/25/14 04/05/20 History furosemide 40 mg PO BID #0 12/20/17 04/05/20 History mycophenolate mofetil 500 mg PO .ON HOLD 90 Days #180 tab 12/30/17 04/05/20 History insulin aspart U-100 100 unit/mL 1 unit SUBCUT AC ml 06/15/19 04/05/20 History (3 mL) subcutaneous pen lancets 33 gauge #100 ea 06/15/19 02/07/20 History calcium carbonate-vitamin D3 600 1 tab PO QAM #0 tab 07/23/19 04/05/20 History mg (1,500 mg)-800 unit tablet pen needle, diabetic 32 gauge x #200 ea 07/24/19 02/07/20 Rx 32" tacrolimus 0.5 mg capsule 0.5 mg PO BID cap 08/28/19 04/05/20 History zoledronic jaez-fbdqkbnb-oefqo 5 5 mg IV YEARLY #0 08/31/19 04/05/20 History mg/100 mL in mannitol 5 %-water intravenous piggybck insulin glargine 100 unit/mL (3 5 unit SUBCUT QAM #15 ml 11/08/19 04/05/20 Rx mL) subcutaneous pen metoprolol tartrate 25 mg tablet 25 mg PO BID 90 Days #180 tab 11/27/19 04/05/20 Rx diltiazem HCl 240 mg 240 mg PO QAM #90 cap 12/03/19 04/05/20 Rx capsule,extended release 24 hr acyclovir 400 mg tablet 400 mg PO BID 12/18/19 04/05/20 History bortezomib 3.5 mg solution for 0 mg SUBCUT WEEKLY ea 12/18/19 04/05/20 History injection cyclophosphamide 50 mg tablet 600 mg PO WEEKLY tab 12/18/19 04/05/20 History dexamethasone 4 mg tablet 40 mg PO WK tab 12/18/19 04/05/20 History prochlorperazine maleate 10 mg 10 mg PO Q6H PRN 12/18/19 04/05/20 History tablet blood sugar diagnostic #100 ea 12/21/19 02/07/20 Rx lisinopril 10 mg tablet 10 mg PO HS #90 tab 12/27/19 04/05/20 Rx levothyroxine 75 mcg tablet 75 mcg PO DAILY #90 tab 01/15/20 04/05/20 Rx magnesium oxide 400 mg (241.3 mg 400 mg PO BID #180 tab 02/06/20 04/05/20 Rx magnesium) tablet apixaban 5 mg tablet 5 mg PO BID #180 tab 03/22/20 04/05/20 Rx famotidine [Pepcid] 20 mg PO BID 04/05/20 04/05/20 History Allergies Allergy/AdvReac Type Severity Reaction Status Date / Time adhesive Allergy Intermediate ERYTHEMA Verified 04/05/20 17:27 WITH ADHESIVE TAPE, blisters No Known Drug Allergies Allergy Unknown nkda Verified 04/05/20 17:27 Past Med/Surg History Medical History Atrial fibrillation (Acute) DX 2014 > NO CARDIOVERSIONS Diabetes mellitus (Chronic) TYPE II Gastric ulcer (Acute) RESOLVED HTN (hypertension) (Chronic) Hypercalcemia (Chronic) Hypercholesteremia (Chronic) Hyperparathyroidism (Chronic) Hypothyroidism (Chronic) Macular degeneration BILAT Osteoarthritis Osteoporosis (Chronic) Polycystic kidney disease (Chronic) HX > DR. ISIDRO > [facility] > DR. SUAREZ [facility] Surgical History History of hysterectomy (Acute) History of squamous cell carcinoma in situ of skin (Acute) WITH REMOVAL TO HEAD History of tonsillectomy Hx of cholecystectomy (Acute) Kidney transplant recipient (Acute) RIGHT > 1995 Family History Mother Diabetes Father Kidney disease Father Hypertension Son Kidney disease Sister Kidney disease Social History Preferred Language: [place] Communication Ability: Effective Record Center Coordinator Required: No Beliefs That Will Affect Care: None Current Living Situation: Spouse Feels Safe at Home: Yes Smoking Status: Never smoker Second Hand Exposure: No ; Hx Alcohol Use: No Hx Substance Use: No Review of Systems A total of 10 systems reviewed and were otherwise negative Physical Exam Vital Signs: Vital Signs - 24 hr 04/05/20 16:22 04/05/20 17:11 04/05/20 17:13 Temperature 36.6 C Temperature Source Oral Pulse Rate 128 H 114 H Pulse Rate [Apical ] 109 H Pulse Rhythm [Apic al] Irregular Pulse Strength [Ap ical] Normal Respiratory Rate 20 20 Respiratory Effort / Characteristics Non-Labored Sponta neous Respiratory Depth Normal Respiratory Patter n Regular Blood Pressure 146/77 H 139/75 Blood Pressure [Ri ght Arm] 139/75 Blood Pressure Emma n 100 Blood Pressure Emma n [Right Arm] 96 Blood Pressure Pos ition [Right Arm] Lying Pulse Oximetry 98 96 Oxygen Delivery Me thod Room Air Room Air Sepsis Recent Feve r Within 48 Hours No Sepsis Action Take n by Nursing No Action Required 04/05/20 17:15 04/05/20 18:09 Temperature Temperature Source Pulse Rate Pulse Rate [Apical ] 97 H Pulse Rhythm [Apic al] Irregular Pulse Strength [Ap ical] Normal Respiratory Rate 18 Respiratory Effort / Characteristics Non-Labored Sponta neous Respiratory Depth Normal Respiratory Patter n Regular Blood Pressure Blood Pressure [Ri ght Arm] 134/80 Blood Pressure Emma n Blood Pressure Emma n [Right Arm] 98 Blood Pressure Pos ition [Right Arm] Sitting Pulse Oximetry 96 96 Oxygen Delivery Me thod Room Air Room Air Sepsis Recent Feve r Within 48 Hours Sepsis Action Take n by Nursing Physical Exam: CONSTITUTIONAL/VITAL SIGNS: Reviewed / noted above. GENERAL: Non-toxic in appearance. INTEGUMENTARY: Warm, dry, and [place]. HEAD: Normocephalic. EYES: without scleral icterus or trauma. ENT/OROPHARYNX: clear and moist. LYMPHADENOPATHY/NECK: Is supple without lymphadenopathy or meningismus. RESPIRATORY: Lungs clear and equal. CARDIOVASCULAR: Regular rate and rhythm. GI/ABDOMEN: Soft and nontender. No organomegaly or pulsatile mass. No rebound or guarding. Normal bowel sounds. There is some ecchymosis in the right lateral abdomen area. EXTREMITIES: Warm and well perfused. There is some tenderness and ecchymosis in the area of the right hip. BACK: No CVA tenderness. NEUROLOGICAL: Intact without focal deficits. PSYCHIATRIC: normal affect. MUSCULOSKELETAL: Normally developed with good muscle tone. TRIAGE NURSING DOCUMENTATION REVIEWED. Course Administered Medications Ioversol (Optiray 320 100ml) 92 ml IV ONCE PRN PRN Reason: Interaction Checking Stop: 04/09/20 18:24 Last Admin: 04/05/20 18:26 Dose: 92 ml Documented by: [id number] Discontinued Medications Sodium Chloride (Nss) 500 mls @ 999 mls/hr IV .Q31M KARIN Stop: 04/05/20 17:15 Last Infusion: 04/05/20 17:42 Dose: 0 mls/hr Documented by: [id number] Admin: 04/05/20 17:12 Dose: 999 mls/hr Documented by: [id number] Metoprolol Tartrate (Lopressor) 5 mg IV NOW STA Stop: 04/05/20 16:43 Last Admin: 04/05/20 17:11 Dose: 5 mg Documented by: [id number] Medical Decision Making Differential Diagnosis Differential includes close head injury, intracranial bleed, facial trauma, cervical spine trauma, chest and thoracic trauma, abdominal and intra-abdominal trauma, spine neurologic trauma, extremity trauma. Medical Records Attestation: I reviewed the patient's medical records. Home Medications Current Medication List: was personally reviewed by me Laboratory Data Attestation: I reviewed the patient's lab results. Result diagrams: 04/05/20 16:48 04/05/20 16:48 Lab Results 04/05/20 04/05/20 04/05/20 Range/Units 16:48 16:48 16:48 WBC 9.23 (4.8-10.8) K/uL RBC 2.40 L (4.2-5.4) M/uL Hgb 8.6 L (12.0-16.0) g/dL Hct 25.6 L (37-47) % MCV 106.7 H (80-100) fL MCH 35.8 H (25-34) pg MCHC 33.6 (32-36) g/dL RDW Std Deviation 70.0 H (36.4-46.3) fL RDW Coeff of Lidya 18.0 H (11.5-14.5) % Plt Count 175 D (130-400) K/uL MPV 12.3 H (7.4-10.4) fL Immature Gran % (Auto) 0.5 % Neut % (Auto) 91.9 % Lymph % (Auto) 4.8 % [place] % (Auto) 2.8 % Eos % (Auto) 0.0 % Baso % (Auto) 0.0 % Immature Gran # (Auto) 0.05 H (0.00-0.02) K/uL Neut # (Auto) 8.48 H (1.4-6.5) K/uL Lymph # (Auto) 0.44 L (1.2-3.4) K/uL [place] # (Auto) 0.26 (0.11-0.59) K/uL Eos # (Auto) 0.00 (0-0.5) K/uL Baso # (Auto) 0.00 (0-0.2) K/uL PT 13.5 H (9.0-12.0) Seconds INR 1.3 H (0.9-1.1) APTT 27.1 (21.0-31.0) Seconds PTT Ratio 1.0 Sodium 140 (136-145) mmol/L Potassium 3.8 D (3.5-5.1) mmol/L Chloride 109 H (98-107) mmol/L Carbon Dioxide 21 (21-32) mmol/L Anion Gap 10.0 (3-11) BUN 40 H (7-18) mg/dl Creatinine 1.24 H (0.6-1.2) mg/dl Est Cr Clr Drug Dosing Not Reportable Est GFR ( Amer) 49.9 Est GFR (Non-Af Amer) 43.1 BUN/Creatinine Ratio 32.6 H (10-20) Glucose 216 H (70-99) mg/dl Calcium 9.0 (8.5-10.1) mg/dl Total Bilirubin 0.4 (0.2-1) mg/dl AST 15 (15-37) U/L ALT 23 (12-78) U/L Alkaline Phosphatase 70 (45-117) U/L Total Creatine Kinase 56 (26-192) U/L Total Protein 5.1 L (6.4-8.2) gm/dl Albumin 2.4 L (3.4-5.0) gm/dl Globulin 2.7 (2.5-4.0) gm/dl Albumin/Globulin Ratio 0.9 (0.9-2) Imaging Data Radiologist's Impression: IMPRESSION: 1. Intramuscular hematoma in the right gluteus muscle complex measuring 5.6 x 4.3 cm in maximal axial dimensions. Overlying contusion of the right lateral thigh. 2. No acute osseous injury. No acute intra-abdominal injury. 3. 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 4. Transplant kidney in the right lower quadrant with increased cortical thinning since prior exam suggesting medical renal disease. 5. Large ventral hernia containing small and large bowel as on prior exam. No bowel obstruction. 6. Small bilateral pleural effusions and bibasilar atelectasi Blood Pressure Blood Pressure Findings: Elevated blood pressure Blood Pressure Disposition: elevated BP felt to be situational MDM Narrative The patient is a 74-year-old female who presents to the ED with a chief complaint of some pain in the right hip and right abdomen after slipping in the tub this morning and striking herself on the tub. The patient states that she takes Eliquis. She contacted her doctor and was referred here because of possibility of bleeding. The patient has a history of A. fib. She states that she is not always in A. fib. The patient denies any chest pains or shortness of breath. Denies striking her head. Denies any neurological symptoms. She does have some discomfort in the right hip region just below the buttocks. She also has some mild pain in the right lateral flank/abdomen area. The patient's exam did reveal some ecchymosis and tenderness to the right hip and right abdominal region. She is also noted to be tachycardic and her monitor shows A. fib. The patient's blood work reveals a hemoglobin of 8.6 today. Yesterday was 10. BUN is 33 and creatinine is 1.09. EKG shows A. fib at a rate of 112. The patient CT scan reveals a hematoma in the right gluteus muscle and right lateral thigh. Because of the patient's decreased hemoglobin that has significantly changed from yesterday, she will be monitored/observed in the hospital for further evaluation and care. I spoke to the hospitalist about the patient. She will see the patient for further evaluation and care. Impression & Plan Traumatic hematoma of buttock, Anemia Discharge Plan Visit Data Chief Complaint: Hip Pain Stated Complaint: FELL IN SHOWER, LANDED ON RIGHT HIP ED Provider: Edin Kolb Discharge Problem: Traumatic hematoma of buttock, Anemia Patient Disposition: Being Evaluated by Hospitalist Forms Stand Alone Forms: My [facility] Prescriptions Prescriptions: No Action multivitamin Tablet 1 tab PO QAM Qty: 0 RF: 0 omega 2-ylg-zmd-fish oil [Fish Oil] 1,000 mg (120 mg-180 mg) Capsule 2,000 mg PO BID Qty: 0 RF: 0 folic acid 1 mg Tablet 1 mg PO QAM Qty: 0 RF: 0 simvastatin 20 mg Tablet 20 mg PO HS Qty: 0 RF: 0 lutein 20 mg Capsule 20 mg PO QAM Qty: 0 RF: 0 allopurinol 300 mg Tablet 300 mg PO BID Qty: 0 RF: 0 furosemide 40 mg Tablet 40 mg PO BID Qty: 0 RF: 0 mycophenolate mofetil 500 mg Tablet 500 mg PO .ON HOLD 90 Days Qty: 180 RF: 3 calcium carbonate-vitamin D3 [Caltrate with Vitamin D3] 600 mg(1,500mg) -800 unit tablet 1 tab PO QAM Qty: 0 RF: 0 (DME) pen needle, diabetic [BD Ultra-Fine [place] Pen Needle] 32 gauge x 5/32" needle See Dose Instructions .ROUTE .MEDSUPPLY Qty: 200 RF: 5 zoledronic rmmo-zadgpock-mkxdt [Reclast] 5 mg/100 mL piggyback 5 mg IV YEARLY Qty: 0 RF: 0 Lantus Solostar U-100 Insulin 100 unit/mL (3 mL) insulin pen 5 unit SUBCUT QAM Qty: 15 RF: 3 metoprolol tartrate 25 mg tablet 25 mg PO BID 90 Days Qty: 180 RF: 1 diltiazem HCl [Cartia XT] 240 mg capsule,extended release 24hr 240 mg PO QAM Qty: 90 RF: 3 (DME) OneTouch Ultra Blue Test Strip Strip See Dose Instructions .ROUTE .MEDSUPPLY Qty: 100 RF: 1 lisinopril 10 mg tablet 10 mg PO HS Qty: 90 RF: 1 levothyroxine 75 mcg tablet 75 mcg PO DAILY Qty: 90 RF: 3 magnesium oxide 400 mg (241.3 mg magnesium) tablet 400 mg PO BID Qty: 180 RF: 3 Eliquis 5 mg tablet 5 mg PO BID Qty: 180 RF: 3 tacrolimus 0.5 mg capsule 0.5 mg PO BID RF: 0 Velcade 3.5 mg recon soln 0 mg subcut WEEKLY RF: 0 cyclophosphamide 50 mg tablet 600 mg PO WEEKLY RF: 0 dexamethasone [Decadron] 4 mg tablet 40 mg PO WK RF: 0 acyclovir 400 mg tablet 400 mg PO BID RF: 0 prochlorperazine maleate [Compazine] 10 mg tablet 10 mg PO Q6H PRN (Reason: Nausea) RF: 0 insulin aspart U-100 100 unit/mL (3 mL) insulin pen 1 unit subcut AC RF: 0 (DME) lancets [OneTouch Delica Plus Lancet] 33 gauge misc See Dose Instructions .ROUTE .MEDSUPPLY Qty: 100 RF: 0 famotidine [Pepcid] 20 mg Tablet 20 mg PO BID RF: 0 Referrals Referrals: Hamlet Isidro MD [Primary Care Provider] -
[2020-04-05 17:15] LABS: INR 1.3 (0.9-1.1); Partial Thromboplastin Time 27.1 Seconds (21.0-31.0); Prothrombin Time 13.5 Seconds (9.0-12.0)
[2020-04-05 17:19] LABS: Hematocrit (blood only) 25.6 % (37-47); Hemoglobin 8.6 g/dL (12.0-16.0); Immature Granulocytes # (auto) 0.05 K/uL (0.00-0.02); Immature Granulocytes % (auto) 0.5 %; Lymphocytes # (auto) 0.44 K/uL (1.2-3.4); Lymphocytes % (auto) 4.8 %; Mean Corpuscular Hemoglobin 35.8 pg (25-34); Mean Corpuscular Hgb Conc 33.6 g/dL (32-36); Mean Corpuscular Volume 106.7 fL (80-100); Mean Platelet Volume 12.3 fL (7.4-10.4); Monocytes # (auto) 0.26 K/uL (0.11-0.59); Monocytes % (auto) 2.8 %; Neutrophils # (auto) 8.48 K/uL (1.4-6.5); Neutrophils % (auto) 91.9 %; Platelet Count 175 K/uL (130-400); White Blood Count 9.23 K/uL (4.8-10.8)
[2020-04-05 17:23] LABS: Alanine Aminotransferase 23 U/L (12-78); Albumin Level 2.4 gm/dl (3.4-5.0); Aspartate Aminotransferase 15 U/L (15-37); BUN Creatinine Ratio 32.6 (10-20); Blood Urea Nitrogen 40 mg/dl (7-18); Carbon Dioxide 21 mmol/L (21-32); Chloride 109 mmol/L (98-107); Est GFR (African American) 49.9; Est GFR (Non-African American) 43.1; Glucose 216 mg/dl (70-99); Potassium 3.8 mmol/L (3.5-5.1); Sodium 140 mmol/L (136-145)
[2020-04-05 17:24] LABS: Albumin Globulin Ratio 0.9 (0.9-2); Alkaline Phosphatase 70 U/L (45-117); Bilirubin,Total 0.4 mg/dl (0.2-1); Creatine Kinase 56 U/L (26-192); Globulin 2.7 gm/dl (2.5-4.0); Total Protein 5.1 gm/dl (6.4-8.2)
[2020-04-05] MEDS ORDERED: IOVERSOL 100ml IV PRN (18:25)
--- NOTE | 2020-04-05 18:38 | CT Scan Report ---
CT abd pelvis IV con only CLINICAL HISTORY: 74 years-old Female presenting with fall, rt hip/rt abd pain, on Eliquis, r/o bleed ing. TECHNIQUE: Multidetector CT of the abdomen and pelvis was performed after the administration of intra venous contrast. IV contrast: 92 mL of Optiray 320. One or more dose lowering techniques were used co nsistent with the principles of ALARA (as low as reasonably achievable), including automatic exposure control, mA or kV adjustment to individual patient size, and/or use of iterative reconstruction. COMPARISON: 01/17/2015. CT DOSE (mGy.cm): The estimated cumulative dose is 1734.11 mGy.cm. 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 Lung bases: For line enlargement of the heart. Coronary artery calcification. Small bilateral pleural effusions, left greater than right. Bibasilar passive atelectasis greater on the left. Liver: Normal morphology. Numerous well-defined hypodense lesions cyst in with cysts. Calcification i s associated with cysts predominantly at the hepatic dome in both the right and left lobes. Biliary: Mild biliary ductal prominence likely a reservoir effect in the post cholecystectomy state. Gallbladder surgically absent. Pancreas: Mild parenchymal atrophy. Spleen: Normal. Adrenal glands: Normal. Kidneys and ureters: Enlarged polycystic kidneys. Scattered mural calcifications. No hyperdense cysts appreciated. No nephrolithiasis or hydronephrosis. Right lower quadrant transplant kidney. Cortical thinning of the transplant kidney increased from prior exam. Mild caliectasis. No hydronephrosis. No distention of the transplant ureter. Bladder: Incompletely evaluated secondary to underdistention. Pelvic organs: Uterus surgically absent. Bowel: Diverticulosis of the sigmoid colon in the mid to distal portion to a mild degree without wall thickening or pericolonic inflammatory change. The large ventral hernia containing small and large b owel. The appendix is normal, which is also contained within the hernia sac. No bowel obstruction. 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 No free intraperitoneal fluid or gas. Lymph nodes: No enlarged lymph nodes in the abdomen or pelvis. Vasculature: Atherosclerosis of the normal caliber abdominal aorta. IVC patent. Abdominal wall: Large ventral hernia within the pannus containing small and large bowel. Smaller fat- containing hernias in the epigastrium. Moderate to severe body wall edema. Skin thickening in the goins nus. Musculoskeletal: Heterogeneously hyperdense collection in the right gluteus muscle complex compatible with a hematoma. This measures up to 5.6 x 4.3 cm in maximal axial dimensions. Overlying more focal infiltration and skin thickening in the lateral right thigh suggests contusion. Severe degenerative c hanges of the spine with scoliosis and osteopenia. No acute fracture. IMPRESSION: 1. Intramuscular hematoma in the right gluteus muscle complex measuring 5.6 x 4.3 cm in maximal axia l dimensions. Overlying contusion of the right lateral thigh. 2. No acute osseous injury. No acute intra-abdominal injury. 3. 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 4. Transplant kidney in the right lower quadrant with increased cortical thinning since prior exam s uggesting medical renal disease. 5. Large ventral hernia containing small and large bowel as on prior exam. No bowel obstruction. 6. Small bilateral pleural effusions and bibasilar atelectasis. ACT 112: Negative or not required by law. Electronically signed by: Jovon Fournier M.D. 04/05/2020 6:37 PM
--- NOTE | 2020-04-05 20:39 | History & Physical Report ---
Date of Service April 05, 2020 Assessment & Plan (1) Traumatic hematoma of buttock: 74 yo F with PMH Afib on Eliquis, DM, HTN, Hypothyroidism, OA presents R hip pain after fall at home found be anemic 2/2 intramuscular hematoma. Anemia/Hematoma -Abd/Pelvis CT: Intramuscular hematoma in the right gluteus muscle complex measuring 5.6 x 4.3 cm in maximal axial dimensions. Overlying contusion of the right lateral thigh. No acute osseous injury. No acute intra-abdominal injury -will admit for observation given hgb 8.6 on admission and was 10.0 the day prior. Repeat CBC in AM -holding Eliquis -communication order placed to check hematoma progression q4h -pain management with PO tylenol for mild/moderate pain . IV Morphine for severe pain -PT/OT pending -if hematoma progresses, may need surgical evacuation Afib -pt in Afib w/RVR on admission likely 2/2 pain/trauma/stress -holding eliquis as above -cont diltiazem ER 240mg, Metoprolol Tartrate 25mg BID, Lasix 40 mg BID HTN/Hypercholesterolemia -cont lisinopril 10mg, simvastatin 20mg DM -hold home regimen. SSI -Last A1c was 08/01/2019 at 6.2 Hypothyroidism -cont levothyroxine 75 mcg H/O Kidney Transplant/Polycystic Kidney Disease -kidney transplant 23 years ago. Follow[address] with Dr. Kennedy, and Dr. Prajapati, [facility] [place]. -immunosuppression therapy with mycophenolate mofetil 500 mg BID, tacrolimus 0.5 mg daily -chemotherapy, CYBORD which she receives once a week -Cr 1.24 on admit, stable FEN/GI: DM/HH Diet DVT Prophylaxis: SCD's. Holding Eliquis. Full Code Dispo: Med Tele . Anticipate short hospital stay. History of Present Illness Chief Complaint: R hip pain Primary Care Provider: Hamlet Isidro MD 74 yo F with PMH Afib on Eliquis, DM, HTN, Hypothyroidism, OA presents to [facility] after mechanical fall at home this morning. Pt states she slipped in the shower this morning and landed on her R side, predominantly on her hip. No head injury. Pt noted some ongoing tenderness in R hip throughout the day that did not improve and discussed this with her doctor who advised pt to present to ED for risk of bleeding given that she takes Eliquis. Current pain level at rest is 0, made worse with movement and maximal pain 5/10. Associated pain in R lateral flank area. Pt otherwise denies and F/N/V/D, chills, lightheadedness/dizziness, VIEIRA, numbness/tingling, palpitations, CP, SOB, syncope or near syncope prior to fall, urinary sxs, recent travel or known exposures to persons with covid. Pt with no other acute concerns or complaints. Pertinent Labs: Hgb 8.6, Cr 1.24, Glu 216, Albumin 2.4 EKG: Afib w/RVR Abd/Pelvis CT: Intramuscular hematoma in the right gluteus muscle complex measuring 5.6 x 4.3 cm in maximal axial dimensions. Overlying contusion of the right lateral thigh. No acute osseous injury. No acute intra-abdominal injury. 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 Transplant kidney in the right lower quadrant with increased cortical thinning since prior exam suggesting medical renal disease. Large ventral hernia containing small and large bowel as on prior exam. No bowel obstruction. Small bilateral pleural effusions and bibasilar atelectasis. ER Course: IV Metoprolol Tartrate 5mg, NSS Allergies Allergy/AdvReac Type Severity Reaction Status Date / Time adhesive Allergy Intermediate ERYTHEMA Verified 04/05/20 17:27 WITH ADHESIVE TAPE, blisters No Known Drug Allergies Allergy Unknown [email or web address] Verified 04/05/20 17:27 Home Medications Home Medications Medication Instructions Recorded Confirmed Type multivitamin 1 tab PO QAM #0 05/23/06 04/05/20 History omega 4-psw-daa-fish oil [Fish Oil] 2,000 mg PO BID #0 10/30/10 04/05/20 History folic acid 1 mg PO QAM #0 05/07/12 04/05/20 History lutein 20 mg PO QAM #0 11/11/14 04/05/20 History simvastatin 20 mg PO HS #0 11/11/14 04/05/20 History allopurinol 300 mg PO BID #0 11/25/14 04/05/20 History furosemide 40 mg PO BID #0 12/20/17 04/05/20 History mycophenolate mofetil 500 mg PO .ON HOLD 90 Days #180 tab 12/30/17 04/05/20 History insulin aspart U-100 100 unit/mL 1 unit SUBCUT AC ml 06/15/19 04/05/20 History (3 mL) subcutaneous pen lancets 33 gauge #100 ea 06/15/19 02/07/20 History calcium carbonate-vitamin D3 600 1 tab PO QAM #0 tab 07/23/19 04/05/20 History mg (1,500 mg)-800 unit tablet pen needle, diabetic 32 gauge x #200 ea 07/24/19 02/07/20 Rx 5/32" tacrolimus 0.5 mg capsule 0.5 mg PO BID cap 08/28/19 04/05/20 History zoledronic syyc-tuaodbbo-mdsob 5 5 mg IV YEARLY #0 08/31/19 04/05/20 History mg/100 mL in mannitol 5 %-water intravenous piggybck insulin glargine 100 unit/mL (3 5 unit SUBCUT QAM #15 ml 11/08/19 04/05/20 Rx mL) subcutaneous pen metoprolol tartrate 25 mg tablet 25 mg PO BID 90 Days #180 tab 11/27/19 04/05/20 Rx diltiazem HCl 240 mg 240 mg PO QAM #90 cap 12/03/19 04/05/20 Rx capsule,extended release 24 hr acyclovir 400 mg tablet 400 mg PO BID 12/18/19 04/05/20 History bortezomib 3.5 mg solution for 0 mg SUBCUT WEEKLY ea 12/18/19 04/05/20 History injection cyclophosphamide 50 mg tablet 600 mg PO WEEKLY tab 12/18/19 04/05/20 History dexamethasone 4 mg tablet 40 mg PO WK tab 12/18/19 04/05/20 History prochlorperazine maleate 10 mg 10 mg PO Q6H PRN 12/18/19 04/05/20 History tablet blood sugar diagnostic #100 ea 12/21/19 02/07/20 Rx lisinopril 10 mg tablet 10 mg PO HS #90 tab 12/27/19 04/05/20 Rx levothyroxine 75 mcg tablet 75 mcg PO DAILY #90 tab 01/15/20 04/05/20 Rx magnesium oxide 400 mg (241.3 mg 400 mg PO BID #180 tab 02/06/20 04/05/20 Rx magnesium) tablet apixaban 5 mg tablet 5 mg PO BID #180 tab 03/22/20 04/05/20 Rx famotidine [Pepcid] 20 mg PO BID 04/05/20 04/05/20 History Past Med/Surg History Medical History Atrial fibrillation (Acute) DX 2014 > NO CARDIOVERSIONS Diabetes mellitus (Chronic) TYPE II Gastric ulcer (Acute) RESOLVED HTN (hypertension) (Chronic) Hypercalcemia (Chronic) Hypercholesteremia (Chronic) Hyperparathyroidism (Chronic) Hypothyroidism (Chronic) Macular degeneration BILAT Osteoarthritis Osteoporosis (Chronic) Polycystic kidney disease (Chronic) HX > DR. ISIDRO > [facility] > [facility] SUAREZ [facility] Surgical History History of hysterectomy (Acute) History of squamous cell carcinoma in situ of skin (Acute) WITH REMOVAL TO HEAD History of tonsillectomy Hx of cholecystectomy (Acute) Kidney transplant recipient (Acute) RIGHT > 1995 Family History Mother Diabetes Father Kidney disease Father Hypertension Son Kidney disease Sister Kidney disease Social History Preferred Language: Croatian Communication Ability: Effective [place] Required: No Beliefs That Will Affect Care: None Current Living Situation: Spouse and Family Other Information That Helps Us Care for You: No Feels Safe at Home: Yes Safety Concerns: Feels Safe At This Time Smoking Status: Never smoker Do You Dip or Chew Tobacco: No ; Second Hand Exposure: No ; Hx Alcohol Use: No Hx Substance Use: No Review of Systems Review of Systems: All systems reviewed & are unremarkable except as noted in HPI & below Physical Exam Constitutional: WD/WN, vitals as above Eyes: PERRL, conjunctivae normal, anicteric sclerae ENMT: external ear and nose normal, oropharynx normal Respiratory: normal respiratory effort, lungs clear to auscultation Cardiovascular: Rate/Rhythm: + tachycardic and + irregularly irregular Gastrointestinal (Abdomen): normal bowel sounds, soft, nontender, no hepatosplenomegaly Musculoskeletal: Mild TTP over R hip area and R flank Skin: + ecchymosis (R flank, R hip area more posteriorly (firm hematoma)) Psychiatric: A+Ox3, euthymic affect Lymphatic: 2+ LE edema Results & Data Results & Data ([facility]) Vital Signs (Past 12 Hours) Vital Signs Temp Pulse Pulse Resp BP BP Pulse Ox 04/05/20 18:09 97 H 18 134/80 96 04/05/20 17:15 96 04/05/20 17:13 109 H 20 139/75 96 04/05/20 17:11 114 H 139/75 04/05/20 16:22 36.6 C 128 H 20 146/77 H 98 Laboratory Results Laboratory Results - last 24 hr 04/05/20 04/05/20 04/05/20 16:48 16:48 16:48 WBC 9.23 RBC 2.40 L Hgb 8.6 L Hct 25.6 L MCV 106.7 H MCH 35.8 H MCHC 33.6 RDW Std Deviation 70.0 H RDW Coeff of Lidya 18.0 H Plt Count 175 D MPV 12.3 H Immature Gran % (Auto) 0.5 Neut % (Auto) 91.9 Lymph % (Auto) 4.8 Porter % (Auto) 2.8 Eos % (Auto) 0.0 Baso % (Auto) 0.0 Immature Gran # (Auto) 0.05 H Neut # (Auto) 8.48 H Lymph # (Auto) 0.44 L Porter # (Auto) 0.26 Eos # (Auto) 0.00 Baso # (Auto) 0.00 PT 13.5 H INR 1.3 H APTT 27.1 PTT Ratio 1.0 Sodium 140 Potassium 3.8 D Chloride 109 H Carbon Dioxide 21 Anion Gap 10.0 BUN 40 H Creatinine 1.24 H Est Cr Clr Drug Dosing Not Reportable Est GFR ( Amer) 49.9 Est GFR (Non-Af Amer) 43.1 BUN/Creatinine Ratio 32.6 H Glucose 216 H Calcium 9.0 Total Bilirubin 0.4 AST 15 ALT 23 Alkaline Phosphatase 70 Total Creatine Kinase 56 Total Protein 5.1 L Albumin 2.4 L Globulin 2.7 Albumin/Globulin Ratio 0.9 Blood Type Antibody Screen 04/05/20 19:03 WBC RBC Hgb Hct MCV MCH MCHC RDW Std Deviation RDW Coeff of Lidya Plt Count MPV Immature Gran % (Auto) Neut % (Auto) Lymph % (Auto) Porter % (Auto) Eos % (Auto) Baso % (Auto) Immature Gran # (Auto) Neut # (Auto) Lymph # (Auto) Porter # (Auto) Eos # (Auto) Baso # (Auto) PT INR APTT PTT Ratio Sodium Potassium Chloride Carbon Dioxide Anion Gap BUN Creatinine Est Cr Clr Drug Dosing Est GFR ( Amer) Est GFR (Non-Af Amer) BUN/Creatinine Ratio Glucose Calcium Total Bilirubin AST ALT Alkaline Phosphatase Total Creatine Kinase Total Protein Albumin Globulin Albumin/Globulin Ratio Blood Type O Positive Antibody Screen NEGATIVE Medications Administered Current Inpatient Medications Ioversol (Optiray 320 100ml) 92 ml IV ONCE PRN PRN Reason: Interaction Checking Stop: 04/09/20 18:24 Last Admin: 04/05/20 18:26 Dose: 92 ml Documented by: Code Status & VTE Plan Code Status FULL Supervising Physician Co-Signing Physician Notes Patient seen and examined, chart reviewed, case discussed with Dr. Murphy and I agree with his assessment and plan as documented above. Briefly, patient is a pleasant 74yo C female with history of paroxysmal atrial fibrillation on Eliquis anticoagulation s/p mechanical fall in the home resulting in right buttock hematoma. Patient is afebrile, in atrial fibrillation with rate of 105bpm presently, blood pressure stable. Pain is minimal. Hgb=8.6, Hct=25.6 from prior values of 10 and 29.8 yesterday. On exam patient is afebrile, tachycardic otherwise stable, NAD Skin - bruising noted on right flank, firm hematoma on right buttock HEENT - NC/AT, PERRL, EOMI, MMM, Neck supple Heart - +S1/S2, irregularly irregular, no m/r/g Lungs - CTA Abd - +BS, soft, NT/ND Ext - compression stockings in place from home with 2+ pitting edema, right buttock hematoma palpable Labs and images reviewed. Assessment/Plan: 74yo C female with history PAF on Eliquis anticoagulation s/p mechanical fall resulting in right buttock hematoma measuring 5.6 x 4.3cm, acute drop in H/H. Patient is hemodynamically stable -Hold Eliquis, no reversal required -Monitor H/H and hematoma for progression -BP meds to be continued with caution -Consider general surgery consultation for evacuation if hematoma progresses -Remainder of plan as above Resident Activity Tracking Resident Involvement: Resident Care Provided Care Provided: Adult Hospital Medicine (1) Traumatic hematoma of buttock Encounter type: initial encounter Qualified Code(s): S30.0XXA - Contusion of lower back and pelvis, initial encounter
[2020-04-05] MEDS ORDERED: CARBOHYDRATES FOR HYPOGLYCEMIA PO PRN (22:36)
[2020-04-05] MEDS ORDERED: lisinopriL 10 MG TAB PO SCH (22:36)
[2020-04-05] MEDS ORDERED: MoRPHine SULFATE 2 MG/ML CARP IV PRN (22:36)
[2020-04-05] MEDS ORDERED: GLUCAGON FOR INJ 1 MG VIAL SQ PRN (22:36)
[2020-04-05] MEDS ORDERED: ONDANSETRON INJ 2 MG/ML 2 ML VIAL IV PRN (22:36)
[2020-04-05] MEDS ORDERED: SIMVASTATIN 20 MG TAB PO SCH (22:36)
[2020-04-05] MEDS ORDERED: GLUCOSE 40% GEL 15 GM TUBE PO PRN (22:36)
[2020-04-05] MEDS ORDERED: GLUCOSE 10 TABS/TUBE PO PRN (22:36)
[2020-04-05] MEDS ORDERED: DEXTROSE 50% 50 ML SYRINGE IV PRN (22:36)
[2020-04-05] MEDS ORDERED: OMEGA DHA EPA FISH OIL PO SCH (22:36)
[2020-04-05] MEDS ORDERED: ACETAMINOPHEN 325 MG TAB PO PRN (22:36)
--- NOTE | 2020-04-05 23:05 | Billing Data ---
Date of Service April 05, 2020 Coding Level of Care Code 70525 OBS Care - Level 3
[2020-04-05] MEDS: INSULIN GLARGINE SOLOSTAR 100 UNITS/ML 3 ML PEN SC SCH (23:40)
[2020-04-05] MEDS: INSULIN ASPART 100 UNITS/ML 3 ML PEN SC SCH (23:42)
[2020-04-05] MEDS: METOPROLOL TARTRATE 25 MG TAB PO SCH (23:43)
[2020-04-05] MEDS: FUROSEMIDE 40 MG TAB PO SCH (23:44)
[2020-04-05] MEDS: MAGNESIUM OXIDE 400 MG TAB PO SCH (23:44)
[2020-04-05] MEDS: TACROLIMUS 0.5 MG CAP PO SCH (23:45)
[2020-04-05] MEDS: FAMOTIDINE 20 MG TAB PO SCH (23:45)
[2020-04-05] MEDS: allopurinoL 300 MG TAB PO SCH (23:46)
[2020-04-06] MEDS ORDERED: LEVOTHYROXINE SODIUM 75 MCG TABLET PO SCH (06:30)
[2020-04-06 07:04] LABS: Hematocrit (blood only) 23.5 % (37-47); Hemoglobin 7.9 g/dL (12.0-16.0); Immature Granulocytes # (auto) 0.03 K/uL (0.00-0.02); Immature Granulocytes % (auto) 0.6 %; Lymphocytes # (auto) 0.44 K/uL (1.2-3.4); Lymphocytes % (auto) 8.1 %; Mean Corpuscular Hemoglobin 36.1 pg (25-34); Mean Corpuscular Hgb Conc 33.6 g/dL (32-36); Mean Corpuscular Volume 107.3 fL (80-100); Mean Platelet Volume 11.4 fL (7.4-10.4); Monocytes # (auto) 0.29 K/uL (0.11-0.59); Monocytes % (auto) 5.3 %; Neutrophils # (auto) 4.67 K/uL (1.4-6.5); Platelet Count 108 K/uL (130-400); RDW Coefficient of Variation 18.3 % (11.5-14.5); RDW Standard Deviation 72.4 fL (36.4-46.3); Red Blood Count 2.19 M/uL (4.2-5.4); White Blood Count 5.43 K/uL (4.8-10.8)
[2020-04-06 07:32] LABS: BUN Creatinine Ratio 40.1 (10-20); Creatinine Clr Calc Pharmacy 62.1 ml/min; Est GFR (African American) 68.9; Est GFR (Non-African American) 59.4; Macrocytosis Present; Poikilocytosis Present
[2020-04-06] MEDS: INSULIN GLARGINE SOLOSTAR 100 UNITS/ML 3 ML PEN SC SCH (08:32)
[2020-04-06] MEDS: INSULIN ASPART 100 UNITS/ML 3 ML PEN SC SCH ×2 (08:33→12:02)
[2020-04-06] MEDS: METOPROLOL TARTRATE 25 MG TAB PO SCH (08:37)
[2020-04-06] MEDS: TACROLIMUS 0.5 MG CAP PO SCH (08:37)
[2020-04-06] MEDS: FAMOTIDINE 20 MG TAB PO SCH (08:37)
[2020-04-06] MEDS: MAGNESIUM OXIDE 400 MG TAB PO SCH (08:37)
[2020-04-06] MEDS: allopurinoL 300 MG TAB PO SCH (08:37)
[2020-04-06] MEDS: FUROSEMIDE 40 MG TAB PO SCH (08:37)
[2020-04-06] MEDS ORDERED: MULTIVITAMIN TAB PO SCH (09:00)
[2020-04-06] MEDS ORDERED: MYCOPHENOLATE MOFETIL 250 MG CAP PO SCH (09:00)
[2020-04-06] MEDS ORDERED: FOLIC ACID 1 MG TAB PO SCH (09:00)
[2020-04-06] MEDS ORDERED: CALCIUM 600MG + VIT D 400 IU TAB PO SCH (09:00)
[2020-04-06] MEDS ORDERED: NON-FORMULARY MEDICATION (Lutein 20 MG) PO SCH (09:00)
[2020-04-06] MEDS ORDERED: dilTIAZem HCL 240 MG CAPCR PO SCH (09:00)
[2020-04-06 12:34] LABS: Hematocrit (blood only) 24.2 % (37-47); Hemoglobin 8.1 g/dL (12.0-16.0)
[2020-04-06 13:09] LABS: Ferritin 535.2 ng/ml (8-388)
[2020-04-06 13:13] LABS: Folate (Folic Acid) > 24.00 ng/ml (>5.38); Vitamin B12 259 pg/ml (211-911)
[2020-04-06] MEDS ORDERED: CYANOCOBALAMIN 500 MCG TABLET (VITAMIN B-12) PO SCH (13:30)
--- NOTE | 2020-04-06 14:57 | Discharge Summary ---
Date of Service date of admission - April 05, 2020 date of discharge - April 06, 2020 Admission HPI Per Admitting Provider 74 yo F with PMH Afib on Eliquis, DM, HTN, Hypothyroidism, OA presents to [facility] after mechanical fall at home this morning. Pt states she slipped in the shower this morning and landed on her R side, predominantly on her hip. No head injury. Pt noted some ongoing tenderness in R hip throughout the day that did not improve and discussed this with her doctor who advised pt to present to ED for risk of bleeding given that she takes Eliquis. Current pain level at rest is 0, made worse with movement and maximal pain 5/10. Associated pain in R lateral flank area. Pt otherwise denies and F/N/V/D, chills, lightheadedness/dizziness, VIEIRA, numbness/tingling, palpitations, CP, SOB, syncope or near syncope prior to fall, urinary sxs, recent travel or known exposures to persons with covid. Pt with no other acute concerns or complaints. Pertinent Labs: Hgb 8.6, Cr 1.24, Glu 216, Albumin 2.4 EKG: Afib w/RVR Abd/Pelvis CT: Intramuscular hematoma in the right gluteus muscle complex measuring 5.6 x 4.3 cm in maximal axial dimensions. Overlying contusion of the right lateral thigh. No acute osseous injury. No acute intra-abdominal injury. 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 Transplant kidney in the right lower quadrant with increased cortical thinning since prior exam suggesting medical renal disease. Large ventral hernia containing small and large bowel as on prior exam. No bowel obstruction. Small bilateral pleural effusions and bibasilar atelectasis. ER Course: IV Metoprolol Tartrate 5mg, NSS Principal Diagnosis right gluteus shaggy muscle hematoma with resulting acute blood loss anemia Discharge Exam Constitutional + obese; no acute distress and no altered mental status ENMT external ear and nose normal, oropharynx normal Respiratory normal respiratory effort, lungs clear to auscultation Cardiovascular Rate/Rhythm: regular rate and regular rhythm Heart Sounds: normal S1 and normal S2; no murmur Vessels: no JVD Extremities: + edema (2+ b/l ) and + AV fistula (LUE ) there is a biphasic machine-like murmur/bruit over the left chest likely due to AV fistula Gastrointestinal (Abdomen) normal bowel sounds, soft, nontender, no hepatosplenomegaly Percussion/Palpation: + hernia (Very large ventral hernia, left abdomen, reducible ) Musculoskeletal b/l hips - passive flexion, abduction, and adduction without pain/tenderness Skin minor amount of ecchymoses along the right lower abdominal wall/near the right groin Psychiatric A+Ox3, euthymic affect Discharge Data Allergies Allergy/AdvReac Type Severity Reaction Status Date / Time adhesive Allergy Intermediate ERYTHEMA Verified 04/05/20 17:27 WITH ADHESIVE TAPE, blisters No Known Drug Allergies Allergy Unknown nkda Verified 04/05/20 17:27 Consultations PT, OT Ordered Studies CT abd pelvis IV con - large right-sided gluteus shaggy hematoma, 5.6cm x 4.3cm Hospital Course (1) Traumatic hematoma of buttock: The patient had an accidental fall while showering at home. She landed on her buttocks. There was no prodromal presyncope, dizziness, chest pain, palpitations or other symptoms - she simply slipped. CT showed right gluteus shaggy muscle hematoma. Her eliquis was held at time of admission, and serial H/H's were followed. She was seen in consult by PT/OT and ambulated well without any limiting musculoskeletal symptoms. She had about a 2 gram drop in her hemoglobin while hospitalized (from 10 at admission to 8.1 at discharge). She did not require any PRBC infusion. She did not require any pain meds. She was advised to HOLD HER ELIQUIS at discharge. This was reported to Dr Isidro, her PCP. She will need a repeat CBC in the days following discharge to ensure stability. A decision can be made at that time about when to restart eliquis. (2) Acute blood loss anemia: 2 gram drop in hemoglobin due to right gluteus shaggy muscle hematoma in the setting of chronic eliquis use. Discharge Hb was 8.1. (3) Edema: The patient reported worsening edema of the legs in the 2 weeks leading up to admission. She had gained between 5-10 pounds of fluid during that time frame despite compliance with lasix 40mg BID. She did not have pulmonary edema clinically and O2 sats were normal. After discussing this issue with Dr Isidro we elected to initiate spironolactone daily. She will need close f/u for this issue with Dr Isidro. Multiple issues likely have contributed to edema including use of decadron, significant proteinuria, use of diltiazem, etc. (4) Polycystic kidney disease: s/p renal transplant on immunosuppressive agents. follows with Dr Isidro. Creatinine on day of discharge - 0.9. (5) Hypothyroidism: TSH 02/2020 wnl. Cont levothyroxine. (6) History of renal transplant: (7) PAF (paroxysmal atrial fibrillation): HOLDING ELIQUIS at discharge due to right buttock hematoma and acute blood loss anemia. Dr Isidro will manage when the eliquis can be safetly resumed. (8) Diabetes mellitus: Continue insulin regimen as previous. No issues while here. (9) HTN (hypertension): Controlled during the stay. Total Time Total Time Spent Total Time Spent (In Minutes): 40 Total Time Includes: Examination of the Patient, Discharge Planning, Medication Reconciliation and Communication With Other Providers Discharge Plan Discharge Items Patient Disposition: Home - Self-Care Reason For Visit: FALL, BUTTOCK HEMATOMA Discharge Diagnosis: 1. fall with resulting buttock hematoma on right side 2. anemia due to loss of blood - discharge hemoglobin 8.1 Activity: As commented below Activity Comment: gradually increase activities over the next 2-4 days Bathing Comment: please use a shower chair if possible to avoid falls Non-emergency contact: Primary Care Provider Call non-emergency contact if: you have any medication questions, your symptoms worsen, your pain is not controlled, your pain is worsening, your pain is unusual for you, your pain is concerning for you and you have a fever Follow-up/Referrals: Hamlet Isidro MD [Primary Care Provider] - (please call Dr Isidro's office tomorrow on 04/07 to schedule follow-up for Tuesday ) Diet: Carb Consistent or DM2 and Heart Healthy Addtl Attending Provider Instructions: You were observed in the hospital to ensure that the hematoma that you developed in your right buttock did not worsen because of your blood thinners. After an initial drop in your hemoglobin (red cell count) it appears it has leveled off at 8.1. This would suggest that any previous bleeding into the buttock tissues has stopped. We held your Eliquis blood thinner while hospitalized. Your iron levels and B12/folate were all checked. It appears that you are vitamin B12 deficient. Please start ardd-nmo-ecxhfyw vitamin B12 and take 1000mcg (1mg) daily for about 1 year. Please HOLD your eliquis. Dr Isidro will tell you when it is safe to resume. For any discomfort in the buttock I would recommend ICE to the affected area for 20 minutes or so several times per day. Do this for 2-3 days, then at that time switch to heat from that point onward. You can take nlhe-ler-itmeodt tylenol for any discomfort as well. Lastly, I spoke with Dr Isidro regarding your edema/swelling of your legs. Please START on TUESDAY AM, 04/07/2020, spironolactone 12.5mg once daily. New prescription sent to your pharmacy for you. The spironolactone is a diuretic water pill. Take this in addition to your normal lasix. Follow-up -- please call Dr Isidro's office tomorrow to schedule follow-up; ideally he wants to see you on Tuesday or of this week. Again HOLD your eliquis at this time. Return to [facility] if -- * you have worsening pain in the buttock or thigh or hip region * you have fever over 100.5 degrees * you develop dizziness or lightheadedness * you have shortness of breath * any other concerns General COVID-19 information -- Coronavirus disease 2019 (COVID-19) is a virus that causes a respiratory illness. It is caused by a coronavirus called 2019 novel coronavirus (2019- nCoV). There are many types of coronavirus. Coronaviruses are a very common cause of bronchitis. They may sometimes cause lung infection(pneumonia). Symptoms can range from mild to severe respiratory illness. These viruses are also foundin some animals. COVID-19 was first found in people in [facility], in late 2019. In 2020, several cases of COVID-19 have been confirmed in the [place] Public health officials are working to find the source. How the virus spreads is not yet fully known. It may be spread through droplets of fluid that a person coughs or sneezes into the air. It may be spread if you touch a surface with virus on it, such as a handle or object, and then touch your mouth. What are the symptoms of COVID-19? Some people have no symptoms or mild symptoms. Symptoms may appear 2 to 14 days after contact with the virus. Symptoms can include: Fever Coughing Trouble breathing What are possible complications from COVID-19? In many cases, this virus can cause infection (pneumonia) in both lungs. In some cases, this can cause . How is COVID-19 diagnosed? Your healthcare provider will ask about your symptoms. He or she will also ask about your recent travel and contact with sick people. Testing for the virus is only done through the CDC. If yourhealthcare provider thinks you may have COVID- 19, he or she will work with your local health department and the CDC on testing. Follow all instructions from your healthcare provider. COVID-19 is diagnosed by: Nasal and throat swab. A cotton-tipped swab is wiped inside your nose or throat. This is done to check for viruses in your nasal mucus. Sputum culture. A small sample of mucus coughed from your lungs (sputum) is collected if you have a cough. It is checked for the virus. How is COVID-19 treated? There is currently no medicine to treat the virus. Treatment is done to help your body while it fights the virus. This is known as supportive care. Supportive care may include: Pain medicine. These include acetaminophen and ibuprofen. They are used to help ease pain and reduce fever. Bed rest. This helps your body fight the illness. For severe illness, you may need to stay in the hospital. Care during severe illness may include: IV (intravenous) fluids.These are given through a vein to help keep your body hydrated. Oxygen. Supplemental oxygen or ventilation with a breathing machine (ventilator) may be given. This is done to keep enough oxygen in your body. Are you at risk for COVID-19? If youve been to a place where people have been sick with this virus, you are at risk for infection. You are at risk if you: Recently traveled to an affected area Had contact with a sick person who recently traveled to this area Had contact with a person who was diagnosed with COVID-19 How can COVID-19 be prevented? There is no vaccine yet. The best prevention is to not have contact with the virus. The CDC advises that people should not travel to areas where there are COVID-19 outbreaks right now for any reason that is not urgent. To help prevent spreading the infection, wash your hands often, or use an alcohol-basedhand motion picture photographer. If you are in an area with COVID-19: Wash your hands often. Or use an alcohol-based hand motion picture photographer often. Only touch your eyes, nose, or mouth with clean hands. Dont have contact with people who are sick. Follow local instructions about being in public. For example, you may be told to not use public transport for a period of time. Stay away from markets that have live or animals. Wash your hands after touching any animals. Don't touch animals that may be sick. Dont share eating or drinking tools with sick people. Dont kiss someone who is sick. Clean surfaces often with disinfectant. If you were in an area with COVID-19 in the last 14 days: Call your healthcare provider. He or she can talk with local health staff to see what action may be needed. Follow all instructions from your provider. Take your temperature every morning and evening for at least 14 days. This is to check for fever. Keep a record of the readings. Keep watch for symptoms of the virus. Tell your provider right away if you have symptoms. If you were in an area with COVID-19 and have a fever or other symptoms: Dont panic. Keep in mind that other illnesses can cause similar symptoms. Stay away from work, school, and public places. Limit physical contact with family members. Don't kiss anyone or share eating or drinking utensils. Clean surfaces you touch with disinfectant. This is to help prevent the virus from spreading. Call your healthcare provider. Explain that you have been exposed to COVID-19 and have symptoms. Do this before going to any hospital. Wait for instructions. Keep in mind that healthcare staff may wear protective equipment such as masks, gowns, gloves, and eye protection. You may be put in a separate room. This is to prevent the possible virus from spreading. Tell the healthcare staff about recent travel. This includes local travel on public transport. Staff may need to find other people you have been in contact with. Follow all instructions the healthcare staff give you. If you have been diagnosed with COVID-19 Follow all instructions from your healthcare provider. Dont leave your home, except to get medical care. Call your healthcare providers office before going. They can prepare and give you instructions. This will help prevent the virus from spreading. Dont go to work, school, or public areas. Dont use public transport or taxis. Stay away from other people in your home. Have them wear face masks around you. Dont share household items or food. Wear a face mask if you can. This includes at home or in a medical facility. Cover your face with a tissue when you cough or sneeze. Throw the tissue away. Wash your hands. Wash your hands often. Caregivers should: Follow all instructions from healthcare staff. Wear a face mask and protective clothing as advised. Wash hands often. Keep track of the sick persons symptoms. Clean surfaces, fabrics, and laundry thoroughly. Keep other people away from the sick person. When to call your healthcare provider Call your healthcare provider: If youve recently traveled and have symptoms If you have been diagnosed with COVID-19 and your symptoms are worse To learn more To find out more about COVID-19, visit the CDC website at www.cdc.gov/coronavirus/2019-ncov/index.html. [employer]. [address] [place] [address]. All rights reserved. This information is not intended as a substitute for professional medical care. Always follow your healthcare professional's instructions. This information has been adapted from [employer] Pending Studies at Discharge: No Stand-Alone Forms: My [facility], Smoking Cessation Medications and DC Order Prescriptions: New cyanocobalamin (vitamin B-12) 1,000 mcg capsule 1,000 mcg PO DAILY Qty: 90 RF: 3 spironolactone [Aldactone] 25 mg tablet 12.5 mg PO QAM Qty: 30 RF: 3 Continued multivitamin Tablet 1 tab PO QAM Qty: 0 RF: 0 omega 4-djp-hnt-fish oil [Fish Oil] 1,000 mg (120 mg-180 mg) Capsule 2,000 mg PO BID Qty: 0 RF: 0 folic acid 1 mg Tablet 1 mg PO QAM Qty: 0 RF: 0 simvastatin 20 mg Tablet 20 mg PO HS Qty: 0 RF: 0 lutein 20 mg Capsule 20 mg PO QAM Qty: 0 RF: 0 allopurinol 300 mg Tablet 300 mg PO BID Qty: 0 RF: 0 furosemide 40 mg Tablet 40 mg PO BID Qty: 0 RF: 0 mycophenolate mofetil 500 mg Tablet 500 mg PO .ON HOLD 90 Days Qty: 180 RF: 3 calcium carbonate-vitamin D3 [Caltrate with Vitamin D3] 600 mg(1,500mg) -800 unit tablet 1 tab PO QAM Qty: 0 RF: 0 (DME) pen needle, diabetic [BD Ultra-Fine Germania Pen Needle] 32 gauge x 5/32" needle See Dose Instructions .ROUTE .MEDSUPPLY Qty: 200 RF: 5 zoledronic sxwi-ifawxozd-qrfnr [Reclast] 5 mg/100 mL piggyback 5 mg IV YEARLY Qty: 0 RF: 0 Lantus Solostar U-100 Insulin 100 unit/mL (3 mL) insulin pen 5 unit SUBCUT QAM Qty: 15 RF: 3 metoprolol tartrate 25 mg tablet 25 mg PO BID 90 Days Qty: 180 RF: 1 diltiazem HCl [Cartia XT] 240 mg capsule,extended release 24hr 240 mg PO QAM Qty: 90 RF: 3 (DME) [employer] SolutionsTouch Ultra Blue Test Strip Strip See Dose Instructions .ROUTE .MEDSUPPLY Qty: 100 RF: 1 lisinopril 10 mg tablet 10 mg PO HS Qty: 90 RF: 1 levothyroxine 75 mcg tablet 75 mcg PO DAILY Qty: 90 RF: 3 magnesium oxide 400 mg (241.3 mg magnesium) tablet 400 mg PO BID Qty: 180 RF: 3 tacrolimus 0.5 mg capsule 0.5 mg PO BID RF: 0 Velcade 3.5 mg recon soln 0 mg subcut WEEKLY RF: 0 cyclophosphamide 50 mg tablet 600 mg PO WEEKLY RF: 0 dexamethasone [Decadron] 4 mg tablet 40 mg PO WK RF: 0 acyclovir 400 mg tablet 400 mg PO BID RF: 0 prochlorperazine maleate [Compazine] 10 mg tablet 10 mg PO Q6H PRN (Reason: Nausea) RF: 0 insulin aspart U-100 100 unit/mL (3 mL) insulin pen 1 unit subcut AC RF: 0 (DME) lancets [OneTouch Delica Plus Lancet] 33 gauge misc See Dose Instructions .ROUTE .MEDSUPPLY Qty: 100 RF: 0 famotidine [Pepcid] 20 mg Tablet 20 mg PO BID RF: 0 Discontinued Eliquis 5 mg tablet 5 mg PO BID Qty: 180 RF: 3 Discharge Orders: Discharge Order (Routine); Ordered 04/06/20 Ordered By: Hamlet Kellogg Admission Data Admit Date/Time: 04/05/20 20:57 Attending Provider: Hamlet Kellogg Admit Provider: Sallie Rogers Primary Care Provider: Hamlet Isidro Other Providers: Sallie Rogers Other Interventions: Discharge Summary Assessment (RN) Last Done: 04/06/20 15:22 DC Date/Time DO NOT enter until pt leaves facility: 04/06/20 16:18 Coding Level of Care Code 70574 OBS Care - Discharge Diagnoses Traumatic hematoma of buttock S30.0XXA Encounter type: initial encounter Acute blood loss anemia D62 Edema R60.9 Polycystic kidney disease Q61.3 Hypothyroidism E03.9 History of renal transplant Z94.0 PAF (paroxysmal atrial fibrillation) I48.0 Diabetes mellitus E11.9 HTN (hypertension) I10
--- NOTE | 2020-04-06 22:50 | Electrocardiogram Report ---
Test Reason : Blood Pressure : / mmHG Vent. Rate : 112 BPM Atrial Rate : 101 BPM P-R Int : 000 ms QRS Dur : 074 ms QT Int : 372 ms P-R-T Axes : 000 020 112 degrees QTc Int : 507 ms Atrial fibrillation with rapid ventricular response Nonspecific ST and T wave abnormality Abnormal ECG When compared with ECG of 30-DEC-2017 10:41, Atrial fibrillation has replaced Sinus rhythm Vent. rate has increased BY [address] no longer elevated in Inferior leads Non-specific change in ST segment in Anterior leads T wave inversion now evident in Inferior leads T wave inversion now evident in Lateral leads Confirmed by Will Breaux ([id number]) on 04/06/2020 10:50:53 PM Referred By: REFERRED SELF Confirmed By:Will Breaux
== END 2020-04-06 16:18 | disposition home or self-care (01) ==
LOC: 2W 16:15 → ED 16:15 → SUATTDRO 20:57 → 2W 21:46

== ENCOUNTER 2020-05-13 18:41 | Inpatient (IN) ==
--- NOTE | 2020-05-13 19:01 | Emergency Department Note ---
Impression & Plan Cellulitis, Atrial fibrillation with RVR, Foot ulcer, right, Thrombocytopenia, Long-term current use of tacrolimus, History of kidney transplant ED Provider Note NAME: ROXANNE CHANDLER AGE: 74 SEX: F ARRIVES VIA: Ambulance INFORMANT: Patient, ED PROVIDER(S): Miguel Jacobs MD CHIEF COMPLAINT: Weakness, Afib RVR, foot pain PLAN: Disposition: Admit MEDICAL DECISION MAKING: The patient is a pleasant 74-year-old woman with a past medical history of Afib on Eliquis, DM, HTN, Hypothyroidism, OA, remote history of kidney transplant due to polycystic kidney disease on Prograf who presents emergency department from home after EMS was called for generalized weakness found to be in A. fib with RVR to the 140s treated with small doses of diltiazem prior to arrival with minimal effect on heart rate. Patient reports her main complaint is actually toe pain which on examination shows redness and swelling related to a right great toe ulcer. The patient denies any objective fevers at home, chills, cough, congestion, nausea, vomiting, diarrhea, urinary symptoms. On arrival the patient is uncomfortable, acute on chronically ill-appearing with heart rate in the 140s in A. fib and vital signs otherwise stable. On exam she has diminished breath sounds at the bases with 1+ edema with erythema warmth and tenderness of the right foot with predominance in the right great toe with plantar ulcer without underlying fluctuance. EKG demonstrates atrial fibrillation with RVR without overt acute ischemia. Chest x-ray with pleural effusion but no focal infiltrates. Plain film of the right foot without overt evidence of osseous involvement. WBC within normal limits. H/H9 0.5/20.0 similar to prior range of values. Platelets 59K which is decreased from her baseline in the low 100K. ESR and CRP are elevated at 76 and 14.6, respectively. Chemistry without acidosis. Lactate 1.1, within normal limits. Electrolytes unremarkable. Troponin negative/undetectable. BNP 11 K without prior values for comparison. UA with epithelial cells but also WBCs and bacteria. Patient is being treated for cellulitis of the great foot with broad-spectrum antibiotics given her immunosuppression with Zosyn and vancomycin. He was also given 20mg IV diltiazem with subsequent improved rate control in the 100s. The patient is agreeable with plan for admission. Case was discussed with Dr. Cohen, [facility] hospitalist, who will evaluate the patient for admission. Triage Nursing notes reviewed and agree them. Prior medical records reviewed Vital Signs: reviewed and remarkable for no significant abnormalities Differential diagnosis: Infection, dehydration, metabolic abnormality, hypo/hyperglycemia, electrolyte disturbance, anemia, hypoxia, cardiac sources, intracerebral event, toxicologic, neurologic, as well as other pathologies. ER treatment provided: See below. Diagnostics interpreted by me: ECG: atrial fibrillation with RVR, 154 bpm, no ectopy, no overt ST elevation or depression, QTC 442, QRS 68. Cardiac Monitoring: An order for continuous cardiac monitoring was placed and demonstrated atrial fibrillation with RVR, 154 bpm, no ectopy Laboratory studies: See below Imaging studies: XR chest 1V portable CLINICAL HISTORY: Chest Pain COMPARISON STUDY: Chest radiograph 04/11/2020. FINDINGS: There is no pneumothorax. A small left pleural effusion is noted with left basilar opacity that favors atelectasis. There is pulmonary vascular congestion. Mild cardiomegaly is unchanged. Note is made of dextroscoliosis of the thoracic spine. IMPRESSION: 1. Small left pleural effusion with left basilar opacity that favors atelectasis. 2. Pulmonary vascular congestion. -- XR foot RT min 3V routine CLINICAL HISTORY: cellulitis/ulcer, eval osseous involvement COMPARISON: None FINDINGS: Right foot soft tissue swelling is present. No acute fractures identified. There is no osteolysis to suggest osteomyelitis by radiography. No suspicious osseous lesion is noted. There is extensive vascular calcification. Mild posterior calcaneal spurring is noted. IMPRESSION: 1. No acute fracture or evidence for osteomyelitis within the right foot. 2. Diffuse soft tissue swelling of the right foot. Consultation(s): Case was discussed with Dr. Cohen, [facility] hospitalist, who will evaluate the patient for admission. HPI: The patient is a pleasant 74-year-old woman with a past medical history of Afib on Eliquis, DM, HTN, Hypothyroidism, OA, remote history of kidney transplant due to polycystic kidney disease on Prograf who presents emergency department from home after EMS was called for generalized weakness found to be in A. fib with RVR to the 140s treated with small doses of diltiazem prior to arrival with minimal effect on heart rate. Patient reports her main complaint is actually toe pain which on examination shows redness and swelling related to a right great toe ulcer. The patient denies any objective fevers at home, chills, cough, congestion, nausea, vomiting, diarrhea, urinary symptoms. ROS: See above HPI for pertinent positives & negatives. A total of 10 systems reviewed and were otherwise negative. PAST MEDICAL HISTORY:See Below PAST SURGICAL HISTORY:See Below FAMILY HISTORY:See Below SOCIAL HISTORY:See Below HOME MEDICATIONS:See Below ALLERGIES:See Below VITALS:See Below PHYSICAL EXAMINATION: GENERAL: Awake, alert, acute on chronically ill-appearing, in no distress HENT: Normocephalic, atraumatic. Oropharynx unremarkable. EYES: Normal conjunctiva. Sclera non-icteric. NECK: Supple. No nuchal rigidity. FROM. No JVD. RESPIRATORY: Managed breath sounds at the bases and otherwise clear to auscultation. CARDIAC: Tachycardic rate, irregular rhythm. Extremities warm and well perfused. Pulses equal. ABDOMEN: Soft, non-distended. No tenderness to palpation. No rebound or guarding. No masses. RECTAL: Deferred. MUSCULOSKELETAL: Chest examination reveals no tenderness. The back is symmetrical on inspection without obvious abnormality. There is no CVA tenderness to palpation. No joint edema. LOWER EXTREMITIES: Calves are equal size bilaterally and non-tender. 1+ edema to the right ankle and foot with erythema warmth and tenderness most pronounced at the great toe and plantar surface ulcer at the base of the great toe. No crepitus. NEURO: Normal sensorium. No sensory or motor deficits noted. SKIN: No rash or jaundice noted. ED COURSE: Critical Care: I have personally spent greater than 80 minutes of critical care time in the direct management of this patient. This includes bedside care, interpretation of diagnostic studies, and testing, discussion with consultants, patient, and family members, and other required patient management activities. This 80 minutes is in excess of all separately billable procedures. Miguel Jacobs MD Past Med/Surg History Medical History Atrial fibrillation (Acute) DX 2014 > NO CARDIOVERSIONS Gastric ulcer (Acute) RESOLVED HTN (hypertension) (Chronic) Hypercalcemia (Chronic) Hypercholesteremia (Chronic) Hyperparathyroidism (Chronic) Hypothyroidism (Chronic) Macular degeneration BILAT Osteoarthritis Osteoporosis (Chronic) Polycystic kidney disease (Chronic) HX > DR. ROCK > NANCY HANDY > DR. SUAREZ LEVINDALE [facility] Surgical History History of hysterectomy (Acute) History of squamous cell carcinoma in situ of skin (Acute) WITH REMOVAL TO HEAD History of tonsillectomy Hx of cholecystectomy (Acute) Kidney transplant recipient (Acute) RIGHT > 1995 Family History Mother Diabetes Father Kidney disease Hypertension Son Kidney disease Sister Kidney disease Social History Preferred Language: Martiniquais Communication Ability: Effective Director Alumni Relations Required: No Beliefs That Will Affect Care: None Current Living Situation: Spouse and Family Other Information That Helps Us Care for You: No Feels Safe at Home: Yes Safety Concerns: Feels Safe At This Time Smoking Status: Never smoker Second Hand Exposure: No ; Hx Alcohol Use: No Hx Substance Use: No Allergies Allergies Allergy/AdvReac Type Severity Reaction Status Date / Time adhesive Allergy Intermediate ERYTHEMA Verified 05/13/20 19:20 WITH ADHESIVE TAPE, blisters No Known Drug Allergies Allergy Unknown [email or web address] Verified 05/13/20 19:20 Home Meds Home Medications Medication Instructions Recorded Confirmed multivitamin 1 tab PO QAM #0 05/23/06 05/13/20 omega 6-wcb-axe-fish oil [Fish Oil] 2,000 mg PO BID #0 10/30/10 05/13/20 folic acid 1 mg PO QAM #0 05/07/12 05/13/20 lutein 20 mg PO QAM #0 11/11/14 05/13/20 simvastatin 20 mg PO HS #0 11/11/14 05/13/20 furosemide 40 mg PO BID #0 12/20/17 05/13/20 insulin aspart U-100 100 unit/mL 1 unit SUBCUT AC ml 06/15/19 05/13/20 (3 mL) subcutaneous pen lancets 33 gauge #100 ea 06/15/19 05/07/20 calcium carbonate-vitamin D3 600 1 tab PO QAM #0 tab 07/23/19 05/13/20 mg (1,500 mg)-800 unit tablet tacrolimus 0.5 mg capsule 0.5 mg PO BID cap 08/28/19 05/13/20 zoledronic [id number]-[id number] 5 5 mg IV YEARLY #0 08/31/19 05/13/20 mg/100 mL in mannitol 5 %-water intravenous piggybck prochlorperazine maleate 10 mg 10 mg PO Q6H PRN 12/18/19 05/13/20 tablet C,E,zinc,copper [id number] 1 cap PO BID 05/13/20 05/13/20 [Ocuvite Adult 50 Plus] famotidine 20 mg PO DAILY 05/13/20 05/13/20 Previous Rx's Medication Instructions Recorded pen needle, diabetic 32 gauge x #200 ea 07/24/19" insulin glargine 100 unit/mL (3 5 unit SUBCUT QAM #15 ml 11/08/19 mL) subcutaneous pen metoprolol tartrate 25 mg tablet 25 mg PO BID 90 Days #180 tab 11/27/19 diltiazem HCl 240 mg 240 mg PO QAM #90 cap 12/03/19 capsule,extended release 24 hr blood sugar diagnostic #100 ea 12/21/19 lisinopril 10 mg tablet 10 mg PO HS #90 tab 12/27/19 levothyroxine 75 mcg tablet 75 mcg PO DAILY #90 tab 01/15/20 magnesium oxide 400 mg (241.3 mg 400 mg PO BID #180 tab 02/06/20 magnesium) tablet cyanocobalamin (vitamin B-12) 1,000 mcg PO DAILY #90 cap 04/06/20 allopurinol 300 mg tablet See Rx Instructions .ROUTE 04/14/20 .COMPLEX #180 tablet apixaban 5 mg tablet 5 mg PO BID #180 tab 04/17/20 Results & Data (ED) Vital Signs Vital Signs - 24 hr 05/13/20 18:50 05/13/20 18:52 05/13/20 18:57 Temperature Temperature Source Pulse Rate 150 H 144 H 146 H Pulse Rate from SpO2 Sensor 154 H 156 H Respiratory Rate 19 29 H 20 Respiratory Effort / Characteristics Respiratory Depth Respiratory Pattern Blood Pressure 143/85 H 163/120 H Blood Pressure Mean 90 144 Pulse Oximetry 95 94 Oxygen Delivery Method Sepsis Recent Fever Within 48 Hours Sepsis Action Taken by Nursing 05/13/20 19:00 05/13/20 19:01 05/13/20 19:04 Temperature 36.9 C Temperature Source Oral Pulse Rate 145 H 147 H 146 H Pulse Rate from SpO2 Sensor 140 H 142 H Respiratory Rate 25 H 23 20 Respiratory Effort / Characteristics Non-Labored Spontaneous Respiratory Depth Normal Respiratory Pattern Regular Blood Pressure 156/96 H 143/85 H Blood Pressure Mean 129 104 Pulse Oximetry 94 93 95 Oxygen Delivery Method Room Air Sepsis Recent Fever Within 48 Hours No Sepsis Action Taken by Nursing No Action Required 05/13/20 19:17 05/13/20 19:30 05/13/20 19:31 Temperature Temperature Source Pulse Rate 146 H 145 H 130 H Pulse Rate from SpO2 Sensor 138 H 127 H Respiratory Rate 20 28 H 28 H Respiratory Effort / Characteristics Respiratory Depth Respiratory Pattern Blood Pressure 155/74 H Blood Pressure Mean 115 Pulse Oximetry 95 92 92 Oxygen Delivery Method Room Air Room Air Room Air Sepsis Recent Fever Within 48 Hours Sepsis Action Taken by Nursing 05/13/20 20:00 05/13/20 20:30 05/13/20 20:49 Temperature Temperature Source Pulse Rate 142 H 123 H 126 H Pulse Rate from SpO2 Sensor Respiratory Rate 28 H 27 H 20 Respiratory Effort / Characteristics Respiratory Depth Respiratory Pattern Blood Pressure 148/82 H Blood Pressure Mean 101 Pulse Oximetry Oxygen Delivery Method Room Air Room Air Room Air Sepsis Recent Fever Within 48 Hours Sepsis Action Taken by Nursing 05/13/20 20:50 05/13/20 21:00 05/13/20 21:30 Temperature 37.8 C H Temperature Source Oral Pulse Rate 129 H 119 H Pulse Rate from SpO2 Sensor 119 H Respiratory Rate 33 H 28 H Respiratory Effort / Characteristics Respiratory Depth Respiratory Pattern Blood Pressure 127/61 Blood Pressure Mean 77 Pulse Oximetry 98 Oxygen Delivery Method Room Air Room Air Sepsis Recent Fever Within 48 Hours Sepsis Action Taken by Nursing 05/13/20 21:31 05/13/20 22:00 05/13/20 22:01 Temperature Temperature Source Pulse Rate 110 H 115 H 105 H Pulse Rate from SpO2 Sensor 108 H 118 H 117 H Respiratory Rate 30 H 26 H 30 H Respiratory Effort / Characteristics Respiratory Depth Respiratory Pattern Blood Pressure 131/58 L Blood Pressure Mean 69 Pulse Oximetry 96 95 95 Oxygen Delivery Method Room Air Room Air Room Air Sepsis Recent Fever Within 48 Hours Sepsis Action Taken by Nursing Laboratory Data Attestation: I reviewed the patient's lab results. Result diagrams: 05/13/20 18:56 05/13/20 20:04 Lab Results 05/13/20 05/13/20 05/13/20 Range/Units 18:56 18:56 18:56 WBC 8.43 (4.8-10.8) K/uL RBC 2.84 L (4.2-5.4) M/uL Hgb 9.5 L (12.0-16.0) g/dL Hct 28.0 L (37-47) % MCV 98.6 (80-100) fL MCH 33.5 (25-34) pg MCHC 33.9 (32-36) g/dL RDW Std Deviation 72.0 H (36.4-46.3) fL RDW Coeff of Lidya 20.0 H (11.5-14.5) % Plt Count 59 L (130-400) K/uL Immature Gran % (Auto) 0.7 % Neut % (Auto) 94.1 % Lymph % (Auto) 2.1 % Ogle % (Auto) 3.0 % Eos % (Auto) 0.0 % Baso % (Auto) 0.1 % Immature Gran # (Auto) 0.06 H (0.00-0.02) K/uL Neut # (Auto) 7.93 H (1.4-6.5) K/uL Lymph # (Auto) 0.18 L (1.2-3.4) K/uL Ogle # (Auto) 0.25 (0.11-0.59) K/uL Eos # (Auto) 0.00 (0-0.5) K/uL Baso # (Auto) 0.01 (0-0.2) K/uL Absolute Nucleated RBC 0.02 H (0-0) K/uL Nucleated RBC % (auto) 0.3 % Platelet Estimate Decreased L (Normal) Giant Platelets 1+ Anisocytosis Present Ovalocytes 1+ Schistocytes 1+ ESR (0-21) mm/hr PT 13.9 H (9.0-12.0) Seconds INR 1.3 H (0.9-1.1) APTT 34.7 H (21.0-31.0) Seconds PTT Ratio 1.2 Sodium 136 (136-145) mmol/L Potassium (3.5-5.1) mmol/L Chloride 106 (98-107) mmol/L Carbon Dioxide 22 (21-32) mmol/L Anion Gap 8.0 (3-11) BUN 38 H (7-18) mg/dl Creatinine 1.19 (0.6-1.2) mg/dl Est Cr Clr Drug Dosing 47.2 ml/min Est GFR ( Amer) 52.4 Est GFR (Non-Af Amer) 45.3 BUN/Creatinine Ratio 31.9 H (10-20) Glucose 161 H (70-99) mg/dl Lactate (0.4-2.0) mmol/L Calcium 9.6 (8.5-10.1) mg/dl Phosphorus 2.1 L (2.5-4.9) mg/dl Magnesium (1.8-2.4) mg/dl Total Bilirubin 0.8 (0.2-1) mg/dl AST (15-37) U/L ALT 23 (12-78) U/L Alkaline Phosphatase 69 (45-117) U/L Troponin I < 0.015 (0-0.045) ng/ml C-Reactive Protein (0-0.29) mg/dl NT-Pro-B Natriuret Pep 37953 H (0-900) pg/ml Total Protein 5.6 L (6.4-8.2) gm/dl Albumin 2.4 L (3.4-5.0) gm/dl Globulin 3.2 (2.5-4.0) gm/dl Albumin/Globulin Ratio 0.8 L (0.9-2) Lipase 67 L (73-393) U/L TSH 1.340 (0.300-4.500) uIu/ml 05/13/20 05/13/20 05/13/20 Range/Units 18:56 20:04 20:04 WBC (4.8-10.8) K/uL RBC (4.2-5.4) M/uL Hgb (12.0-16.0) g/dL Hct (37-47) % MCV (80-100) fL MCH (25-34) pg MCHC (32-36) g/dL RDW Std Deviation (36.4-46.3) fL RDW Coeff of Lidya (11.5-14.5) % Plt Count (130-400) K/uL Immature Gran % (Auto) % Neut % (Auto) % Lymph % (Auto) % Ogle % (Auto) % Eos % (Auto) % Baso % (Auto) % Immature Gran # (Auto) (0.00-0.02) K/uL Neut # (Auto) (1.4-6.5) K/uL Lymph # (Auto) (1.2-3.4) K/uL Ogle # (Auto) (0.11-0.59) K/uL Eos # (Auto) (0-0.5) K/uL Baso # (Auto) (0-0.2) K/uL Absolute Nucleated RBC (0-0) K/uL Nucleated RBC % (auto) % Platelet Estimate (Normal) Giant Platelets Anisocytosis Ovalocytes Schistocytes ESR 76 H (0-21) mm/hr PT (9.0-12.0) Seconds INR (0.9-1.1) APTT (21.0-31.0) Seconds PTT Ratio Sodium (136-145) mmol/L Potassium 4.6 (3.5-5.1) mmol/L Chloride (98-107) mmol/L Carbon Dioxide (21-32) mmol/L Anion Gap (3-11) BUN (7-18) mg/dl Creatinine (0.6-1.2) mg/dl Est Cr Clr Drug Dosing ml/min Est GFR ( Amer) Est GFR (Non-Af Amer) BUN/Creatinine Ratio (10-20) Glucose (70-99) mg/dl Lactate 1.1 (0.4-2.0) mmol/L Calcium (8.5-10.1) mg/dl Phosphorus (2.5-4.9) mg/dl Magnesium 1.9 (1.8-2.4) mg/dl Total Bilirubin (0.2-1) mg/dl AST 10 L (15-37) U/L ALT (12-78) U/L Alkaline Phosphatase (45-117) U/L Troponin I (0-0.045) ng/ml C-Reactive Protein 14.60 H (0-0.29) mg/dl NT-Pro-B Natriuret Pep (0-900) pg/ml Total Protein (6.4-8.2) gm/dl Albumin (3.4-5.0) gm/dl Globulin (2.5-4.0) gm/dl Albumin/Globulin Ratio (0.9-2) Lipase (73-393) U/L TSH (0.300-4.500) uIu/ml Administered Medications Colchicine (Colcrys) 0.6 mg PO BID KARIN Stop: 06/13/20 00:26 Last Admin: 05/14/20 02:25 Dose: 0.6 mg Documented by: [id number] Piperacillin Sod/Tazobactam (Sod 3.375 gm/ Dextrose) 115 mls @ 28.75 mls/hr IV Q8H [facility]; Protocol Stop: 05/21/20 01:59 Last Admin: 05/14/20 02:25 Dose: 28.8 mls/hr Documented by: [id number] Discontinued Medications Diltiazem HCl (Cardizem) 20 mg IV NOW STA Stop: 05/13/20 20:32 Last Admin: 05/13/20 20:59 Dose: 20 mg Documented by: [id number] Cosigned by: [id number] Piperacillin Sod/Tazobactam Sod (Zosyn) 4.5 gm in 120 mls @ 240 mls/hr IV NOW ONE Stop: 05/13/20 19:35 Last Infusion: 05/13/20 21:39 Dose: 0 mls/hr Documented by: [id number] Admin: 05/13/20 20:59 Dose: 240 mls/hr Documented by: [id number] Vancomycin HCl 2,000 mg/ (Sodium Chloride) 540 mls @ 200 mls/hr IV NOW ONE Stop: 05/13/20 22:26 Last Infusion: 05/13/20 23:14 Dose: 0 mls/hr Documented by: [id number] Admin: 05/13/20 20:31 Dose: 200 mls/hr Documented by: [id number] Sodium Chloride (Nss) 500 mls @ 999 mls/hr IV .Q31M ONE Stop: 05/13/20 20:23 Last Infusion: 05/13/20 21:39 Dose: 0 mls/hr Documented by: [id number] Admin: 05/13/20 20:55 Dose: 999 mls/hr Documented by: [id number] Blood Pressure Blood Pressure Findings: Elevated blood pressure Blood Pressure Disposition: further management by hospitalist Discharge Plan Visit Data *Final* Discharge Date/Time: 05/13/20 23:26 Chief Complaint: Cardiac Assessment ED Provider: Miguel Jacobs Discharge Problem: Cellulitis, Atrial fibrillation with RVR, Foot ulcer, right, Thrombocytopenia, Long-term current use of tacrolimus, History of kidney transplant Patient Disposition: Admitted As Inpatient Discharge Instructions Interventions: ED Discharge Assessment Last Done: 05/13/20 23:26 Discharge Problem: Cellulitis Qualifiers: Site of cellulitis: extremity Site of cellulitis of extremity: lower extremity Laterality: right Qualified Code(s): L03.115 - Cellulitis of right lower limb Foot ulcer, right Qualifiers: Non-pressure ulcer stage: unspecified non-pressure ulcer stage Qualified Code(s): L97.519 - Non-pressure chronic ulcer of other part of right foot with unspecified severity
[2020-05-13] MEDS ORDERED: PIPERACILL/TAZOBAC CONSULT ACTIVE PRN (19:06)
[2020-05-13] MEDS ORDERED: PIPERACILLIN/TAZOBACTAM 4.5 GM/120 ML BAG IV ONE (19:06)
[2020-05-13 19:12] LABS: Mean Corpuscular Hgb Conc 33.9 g/dL (32-36); Nucleated RBC # (auto) 0.02 K/uL (0-0); Nucleated RBC % (auto) 0.3 %
[2020-05-13 19:24] LABS: INR 1.3 (0.9-1.1); Partial Thromboplastin Ratio 1.2; Partial Thromboplastin Time 34.7 Seconds (21.0-31.0); Prothrombin Time 13.9 Seconds (9.0-12.0)
[2020-05-13 19:30] LABS: Hemoglobin 9.5 g/dL (12.0-16.0); Mean Corpuscular Hemoglobin 33.5 pg (25-34); Mean Corpuscular Volume 98.6 fL (80-100); Red Blood Count 2.84 M/uL (4.2-5.4); White Blood Count 8.43 K/uL (4.8-10.8)
[2020-05-13 19:32] LABS: Platelet Count 59 K/uL (130-400)
[2020-05-13 19:33] LABS: Anisocytosis Present; Basophils # (auto) 0.01 K/uL (0-0.2); Basophils % (auto) 0.1 %; Giant Platelets 1+; Immature Granulocytes # (auto) 0.06 K/uL (0.00-0.02); Immature Granulocytes % (auto) 0.7 %; Lymphocytes # (auto) 0.18 K/uL (1.2-3.4); Lymphocytes % (auto) 2.1 %; Monocytes # (auto) 0.25 K/uL (0.11-0.59); Neutrophils # (auto) 7.93 K/uL (1.4-6.5); Neutrophils % (auto) 94.1 %; Ovalocytes 1+; Platelet Estimate Decreased (Normal); Schistocytes 1+
[2020-05-13 19:34] LABS: Alanine Aminotransferase 23 U/L (12-78); Albumin Level 2.4 gm/dl (3.4-5.0); BUN Creatinine Ratio 31.9 (10-20); Blood Urea Nitrogen 38 mg/dl (7-18); Calcium 9.6 mg/dl (8.5-10.1); Carbon Dioxide 22 mmol/L (21-32); Chloride 106 mmol/L (98-107); Creatinine Clr Calc Pharmacy 47.2 ml/min; Est GFR (African American) 52.4; Est GFR (Non-African American) 45.3; Glucose 161 mg/dl (70-99); Lipase 67 U/L (73-393); Sodium 136 mmol/L (136-145)
[2020-05-13] MEDS ORDERED: VANCOMYCIN CONSULT ACTIVE PRN (19:45)
[2020-05-13] MEDS ORDERED: VANCOMYCIN HCL 2,000 MG in SODIUM CHLORIDE 0.9% 500 ML IV ONE (19:45)
[2020-05-13] MEDS ORDERED: SODIUM CHLORIDE 0.9% 500 ML IV ONE (19:53)
[2020-05-13 19:57] LABS: Albumin Globulin Ratio 0.8 (0.9-2); Alkaline Phosphatase 69 U/L (45-117); Bilirubin,Total 0.8 mg/dl (0.2-1); Globulin 3.2 gm/dl (2.5-4.0); NT Pro B Type Natriuretic Pept 11411 pg/ml (0-900); Phosphorus 2.1 mg/dl (2.5-4.9); Total Protein 5.6 gm/dl (6.4-8.2); Troponin I < 0.015 ng/ml (0-0.045)
--- NOTE | 2020-05-13 19:57 | XRay Report ---
XR chest 1V portable CLINICAL HISTORY: Chest Pain COMPARISON STUDY: Chest radiograph 04/11/2020. FINDINGS: There is no pneumothorax. A small left pleural effusion is noted with left basilar opacity that favors atelectasis. There is pulmonary vascular congestion. Mild cardiomegaly is unchanged. Note is made of dextroscoliosis of the thoracic spine. IMPRESSION: 1. Small left pleural effusion with left basilar opacity that favors atelectasis. 2. Pulmonary vascular congestion. ACT 112: Negative or not required by law. Electronically signed by: Burak Solis M.D. 05/13/2020 7:56 PM
--- NOTE | 2020-05-13 20:00 | XRay Report ---
XR foot RT min 3V routine CLINICAL HISTORY: cellulitis/ulcer, eval osseous involvement COMPARISON: None FINDINGS: Right foot soft tissue swelling is present. No acute fractures identified. There is no ost eolysis to suggest osteomyelitis by radiography. No suspicious osseous lesion is noted. There is exte nsive vascular calcification. Mild posterior calcaneal spurring is noted. IMPRESSION: 1. No acute fracture or evidence for osteomyelitis within the right foot. 2. Diffuse soft tissue swelling of the right foot. ACT 112: Negative or not required by law. Electronically signed by: Burak Solis M.D. 05/13/2020 7:59 PM
[2020-05-13 20:30] LABS: Potassium 4.6 mmol/L (3.5-5.1)
[2020-05-13] MEDS ORDERED: dilTIAZem HCl 5 MG/ML 5 ML VIAL IV STA (20:31)
[2020-05-13 20:35] LABS: C Reactive Protein 14.6 mg/dl (0-0.29); Magnesium 1.9 mg/dl (1.8-2.4)
--- NOTE | 2020-05-13 22:22 | History & Physical Report ---
Date of Service May 13, 2020 Assessment & Plan (1) Cellulitis: 74-year-old female past medical history type 2 diabetes on insulin therapy, gout, polycystic kidney disease, hypothyroidism, hypertension, history of renal transplant on tacrolimus, paroxysmal A. fib admitted for right lower extremity cellulitis in the setting of acute gout flare. For IV antibiotics and colchicine. RLE cellulitis with acute gout flare of R 1st MTP: -Patient with a history of gout of the same toe, though this presentation is worse. -Right foot x-ray without signs suggestive of osteomyelitis, with soft tissue swelling. -Patient with elevated ESR and CRP but without leukocytosis. This is likely due to chronic tacrolimus for kidney transplant. ESR and CRP elevation as well as physical exam findings suggestive of cellulitis and gout flare. -In ED received 1 dose of Vanco and Zosyn, will continue for right lower extremity cellulitis. -Blood cultures x2 drawn prior to antibiotic. -Discontinue allopurinol in the setting of acute flare, start colchicine 0.6 mg twice daily. -We will hold off on systemic steroids due to history of type 2 diabetes. -Will hold off on Toradol at this time due to thrombocytopenia. AFib with RVR: -Likely secondary to dehydration and current active infection. Asymptomatic at this time. -With improvement in heart rate with diltiazem in emergency room. -Will continue home diltiazem, metoprolol, and Eliquis. Lopressor IV 5 mg q4h PRN HR >110. DM2: -Continue home Lantus and SSI. -Patient would benefit from podiatry in the outpatient setting. It appears that she is unable to cut her own toenails due to her vision and body habitus. She has some numbness of her toes and therefore is unable to recognize when she has a wound. Thrombocytopenia: -Patient with platelets to 59, recently discontinued " 1 of her medications for her kidney transplant", possible that this medication caused thrombocytopenia but this is unclear. -Patient without signs or symptoms of acute bleed. -Unlikely to be DIC. Repeat CBC and for peripheral smear in the morning. Elevated pro-BNP: -Patient with recent echo in October with normal EF, no diastolic dysfunction. -Takes Lasix 40 mg p.o. twice daily for hypertension. -Differentials include diastolic dysfunction versus A. fib with RVR. -Continue home Lasix. Patient is without shortness of breath. History of kidney transplant: -Continue home tacrolimus. Code Status: FULL CODE FEN/GI: DM2 diet DVT ppx: Eliquis Dispo: Telemetry for IV Abx, cardiac monitoring (2) Gout attack: (3) Atrial fibrillation with RVR: (4) Diabetes mellitus type II, controlled: (5) Hypothyroidism: (6) HTN (hypertension): (7) Hypercholesteremia: (8) Thrombocytopenia: (9) Elevated brain natriuretic peptide (BNP) level: (10) History of renal transplant: History of Present Illness Chief Complaint: Right foot pain, irregular heart rate on arrival Primary Care Provider: Hamlet Isidro MD 74-year-old female past medical history type 2 diabetes on insulin therapy, gout, polycystic kidney disease, hypothyroidism, hypertension, history of renal transplant on tacrolimus, paroxysmal A. fib presented to the emergency room for right toe pain. When EMS arrived to her home she was found to be in A. fib with RVR, was given diltiazem 5 mg IV without resolution. At that time did not have any palpitations, shortness of breath, chest pain, dizziness. Was only complaining of foot pain. On arrival to ED was still in A. fib with RVR. In ER CBC was performed which showed no leukocytosis, platelets 59, elevated ESR to 76, CRP 14.60, UA with nitrites bacteria leuk esterase but was a dirty catch. Given one-time dose Vanco and Zosyn, 500 cc normal saline solution. Hospital team was consulted for admission. On my interview patient's only complaint continues to be right foot pain, no pain when lying down but reports "excruciating pain when standing and walking". Has been dealing with this pain for several weeks but has been worsening over the last week into today. About 2 days ago noticed a wound on the bottom of her right foot which she started putting a Band-Aid and ointment on without relief. No fevers or chills, no nausea or vomiting, no diarrhea or constipation, no dysuria hematuria urinary urgency or frequency. During my interview patient was administered 20 mg diltiazem IV with decrease in heart rate from 130s to 90s to low 100s. Has a history of gout for which he takes allopurinol twice daily. For the last 2 days has not been eating or drinking well, has been spending a lot of time in bed. Allergies Allergy/AdvReac Type Severity Reaction Status Date / Time adhesive Allergy Intermediate ERYTHEMA Verified 05/13/20 19:20 WITH ADHESIVE TAPE, blisters No Known Drug Allergies Allergy Unknown nkda Verified 05/13/20 19:20 Home Medications Home Medications Medication Instructions Recorded Confirmed Type multivitamin 1 tab PO QAM #0 05/23/06 05/13/20 History omega 0-iek-fon-fish oil [Fish Oil] 2,000 mg PO BID #0 10/30/10 05/13/20 History folic acid 1 mg PO QAM #0 05/07/12 05/13/20 History lutein 20 mg PO QAM #0 11/11/14 05/13/20 History simvastatin 20 mg PO HS #0 11/11/14 05/13/20 History furosemide 40 mg PO BID #0 12/20/17 05/13/20 History insulin aspart U-100 100 unit/mL 1 unit SUBCUT AC ml 06/15/19 05/13/20 History (3 mL) subcutaneous pen lancets 33 gauge #100 ea 06/15/19 05/07/20 History calcium carbonate-vitamin D3 600 1 tab PO QAM #0 tab 07/23/19 05/13/20 History mg (1,500 mg)-800 unit tablet pen needle, diabetic 32 gauge x #200 ea 07/24/19 05/07/20 Rx 5/32" tacrolimus 0.5 mg capsule 0.5 mg PO BID cap 08/28/19 05/13/20 History zoledronic oeqy-pykoyyjt-mzbdy 5 5 mg IV YEARLY #0 08/31/19 05/13/20 History mg/100 mL in mannitol 5 %-water intravenous piggybck insulin glargine 100 unit/mL (3 5 unit SUBCUT QAM #15 ml 11/08/19 05/13/20 Rx mL) subcutaneous pen metoprolol tartrate 25 mg tablet 25 mg PO BID 90 Days #180 tab 11/27/19 05/13/20 Rx diltiazem HCl 240 mg 240 mg PO QAM #90 cap 12/03/19 05/13/20 Rx capsule,extended release 24 hr prochlorperazine maleate 10 mg 10 mg PO Q6H PRN 12/18/19 05/13/20 History tablet blood sugar diagnostic #100 ea 12/21/19 05/07/20 Rx lisinopril 10 mg tablet 10 mg PO HS #90 tab 12/27/19 05/13/20 Rx levothyroxine 75 mcg tablet 75 mcg PO DAILY #90 tab 01/15/20 05/13/20 Rx magnesium oxide 400 mg (241.3 mg 400 mg PO BID #180 tab 02/06/20 05/13/20 Rx magnesium) tablet cyanocobalamin (vitamin B-12) 1,000 mcg PO DAILY #90 cap 04/06/20 05/13/20 Rx allopurinol 300 mg tablet See Rx Instructions .ROUTE 04/14/20 05/13/20 Rx .COMPLEX #180 tablet apixaban 5 mg tablet 5 mg PO BID #180 tab 04/17/20 05/13/20 Rx C,E,zinc,copper 77-[id number]-dtt 1 cap PO BID 05/13/20 05/13/20 History [Ocuvite Adult 50 Plus] famotidine 20 mg PO DAILY 05/13/20 05/13/20 History Past Med/Surg History Medical History Atrial fibrillation (Acute) DX 2013 > NO CARDIOVERSIONS Gastric ulcer (Acute) RESOLVED HTN (hypertension) (Chronic) Hypercalcemia (Chronic) Hypercholesteremia (Chronic) Hyperparathyroidism (Chronic) Hypothyroidism (Chronic) Macular degeneration BILAT Osteoarthritis Osteoporosis (Chronic) Polycystic kidney disease (Chronic) HX > DR. ISIDRO > [facility] > [facility] 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: No Beliefs That Will Affect Care: None Current Living Situation: Spouse and Family Other Information That Helps Us Care for You: No Feels Safe at Home: Yes Safety Concerns: Feels Safe At This Time Smoking Status: Never smoker Second Hand Exposure: No ; Hx Alcohol Use: No Hx Substance Use: No Review of Systems Review of Systems: All systems reviewed & are unremarkable except as noted in HPI & below Constitutional: + malaise; no fever and no chills Respiratory: no cough, no dyspnea and no wheezing Cardiovascular: + edema (chronic); no chest pain and no palpitations Gastrointestinal: no abdominal pain, no nausea, no vomiting, no constipation and no diarrhea/loose stools Genitourinary: no dysuria and no hematuria Integumentary: + skin ulcer Right foot pain and wound Physical Exam Constitutional: WD/WN, vitals as above Eyes: PERRL, conjunctivae normal, anicteric sclerae ENMT: external ear and nose normal, oropharynx normal Neck: trachea midline, no thyromegaly Respiratory: normal respiratory effort, lungs clear to auscultation Cardiovascular: Rate/Rhythm: regular rate and regular rhythm Heart Sounds: no murmur Extremities: + edema (2 bilateral) Gastrointestinal (Abdomen): normal bowel sounds, soft, nontender, no hepatosplenomegaly Musculoskeletal: no cyanosis or clubbing, extremities motor strength 5/5 Skin: RLE: Erythema and warmth to the mid monzon, plantar aspect of the foot at area of the first MTP with 2 to 3 mm punctum with serosanguineous drainage, very tender to palpation at the area of the first MTP. LLE: Patient with 2+ pitting edema to the ankle, second phalanx with 0.5 cm wound on the medial side, with toenail from great toe causing wound. Neurologic: AAOx3, normal speech. PERRLA, EOMI, no nystagmus. Normal visual acuity bilaterally. Bilateral UE, and face without sensory or motor deficits. Bilateral lower extremities with symmetric but decreased sensation at the level of the feet diffusely. CN II-XII intact bilaterally. No pronator drift. No tremor. Psychiatric: A+Ox3, euthymic affect Results & Data Results & Data ([facility]) Vital Signs (Past 12 Hours) Vital Signs Temp Pulse Resp BP Pulse Ox 05/13/20 20:50 37.8 C H 05/13/20 19:17 146 H 20 95 05/13/20 19:04 36.9 C 146 H 20 143/85 H 95 05/13/20 19:01 147 H 23 93 05/13/20 19:00 145 H 25 H 156/96 H 94 05/13/20 18:57 146 H 20 163/120 H 94 05/13/20 18:52 144 H 29 H 05/13/20 18:50 150 H 19 143/85 H 95 Code Status & VTE Plan VTE Prophylaxis Plan VTE Prophylaxis will be ordered: Yes Supervising Physician Co-Signing Physician Notes Attending addendum: I have physically seen this patient, have supervised the medical residents activities, and agree with the H&P unless as otherwise noted. Assessment and Plan: Acute gout attack right first MTP/overlying cellulitis- Hold allopurinol. Placed on colchicine 0.6 mg p.o. twice daily Vancomycin IV/Zosyn IV empiric treatment Follow blood cultures A. fib with RVR- Treat underlying infection and dehydration. Continue diltiazem, metoprolol and Eliquis. Lopressor 5 mg IV every 4 hours PRN heart rate greater than 110 Diabetes mellitus- Cut Lantus dose in half. Placed on Accu-Cheks before meals and at bedtime with NovoLog coverage per scale Remainder of orders and notations as noted. Resident Activity Tracking Resident Involvement: Resident Care Provided Care Provided: Adult Hospital Medicine
[2020-05-13 23:07] LABS: Appearance Urine Cloudy (Clear); Bacteria Urine Automated 2+ (Negative); Bilirubin Urine Negative (Negative); Blood Urine 2+ (Negative); Cast Urine Automated 0 /lpf (0-5); Color Urine Yellow; Glucose Urine UA Negative (Negative); Ketones Urine Trace (Negative); Leukocyte Esterase Urine 2+ (Negative); Nitrite Urine Positive (Negative); Protein Urine 4+ (Negative); Specific Gravity Urine 1.018 (1.000-1.030); Urobilinogen Urine Negative (Negative); WBC Urine Automated >30 /hpf (0-5); pH Urine 5.5 (4.5-7.5)
[2020-05-14] MEDS ORDERED: DEXTROSE 50% 50 ML SYRINGE IV PRN (00:27)
[2020-05-14] MEDS ORDERED: POLYETHYLENE (MIRALAX) 17 GM PACK PO PRN (00:27)
[2020-05-14] MEDS ORDERED: NITROGLYCERIN SL 0.4 MG/TAB TAB SL PRN (00:27)
[2020-05-14] MEDS ORDERED: GLUCOSE 10 TABS/TUBE PO PRN (00:27)
[2020-05-14] MEDS ORDERED: GLUCOSE 40% GEL 15 GM TUBE PO PRN (00:27)
[2020-05-14] MEDS ORDERED: CARBOHYDRATES FOR HYPOGLYCEMIA PO PRN (00:27)
[2020-05-14] MEDS ORDERED: GLUCAGON FOR INJ 1 MG VIAL SQ PRN (00:27)
[2020-05-14] MEDS ORDERED: METOPROLOL TARTRATE 1 MG/ML VIAL IV PRN (00:27)
[2020-05-14] MEDS ORDERED: ONDANSETRON INJ 2 MG/ML 2 ML VIAL IV PRN (00:27)
[2020-05-14] MEDS: PIPERACILLIN/TAZOBACTAM 3.375 GM in DEXTROSE 5% 100 ML IV SCH ×3 (02:25→17:14)
[2020-05-14] MEDS: COLCHICINE 0.6 MG TAB PO SCH ×2 (02:25→08:12)
[2020-05-14] MEDS: LEVOTHYROXINE SODIUM 75 MCG TABLET PO SCH (05:17)
[2020-05-14] MEDS: VANCOMYCIN HCL 1,000 MG in SODIUM CHLORIDE 0.9% 250 ML IV SCH ×2 (05:17→17:14)
[2020-05-14 07:30] LABS: Hematocrit (blood only) 26.2 % (37-47); Hemoglobin 8.8 g/dL (12.0-16.0); Mean Corpuscular Hemoglobin 33.1 pg (25-34); Mean Corpuscular Hgb Conc 33.6 g/dL (32-36); Mean Corpuscular Volume 98.5 fL (80-100); Nucleated RBC # (auto) 0.02 K/uL (0-0); Nucleated RBC % (auto) 0.4 %; RDW Coefficient of Variation 19.9 % (11.5-14.5); RDW Standard Deviation 71.3 fL (36.4-46.3); Red Blood Count 2.66 M/uL (4.2-5.4); White Blood Count 3.91 K/uL (4.8-10.8)
[2020-05-14 07:57] LABS: Platelet Count 43 K/uL (130-400)
[2020-05-14 08:07] LABS: Anisocytosis Present; Basophils # (auto) 0.01 K/uL (0-0.2); Basophils % (auto) 0.3 %; Immature Granulocytes # (auto) 0.03 K/uL (0.00-0.02); Immature Granulocytes % (auto) 0.8 %; Lymphocytes # (auto) 0.06 K/uL (1.2-3.4); Lymphocytes % (auto) 1.5 %; Monocytes % (auto) 2.6 %; Neutrophils # (auto) 3.71 K/uL (1.4-6.5); Neutrophils % (auto) 94.8 %; Platelet Estimate Decreased (Normal)
[2020-05-14] MEDS: INSULIN ASPART 100 UNITS/ML 3 ML PEN SC SCH ×4 (08:07→20:28)
[2020-05-14 08:08] LABS: BUN Creatinine Ratio 31.1 (10-20); Calcium 9.3 mg/dl (8.5-10.1); Creatinine Clr Calc Pharmacy 49.7 ml/min; Est GFR (African American) 55.8; Est GFR (Non-African American) 48.2; Potassium 4.5 mmol/L (3.5-5.1)
[2020-05-14] MEDS: INSULIN GLARGINE SOLOSTAR 100 UNITS/ML 3 ML PEN SC SCH (08:09)
[2020-05-14] MEDS: METOPROLOL TARTRATE 25 MG TAB PO SCH ×2 (08:10→20:29)
[2020-05-14] MEDS: FAMOTIDINE 20 MG TAB PO SCH (08:10)
[2020-05-14] MEDS: dilTIAZem HCL 240 MG CAPCR PO SCH (08:11)
[2020-05-14] MEDS: TACROLIMUS 0.5 MG CAP PO SCH ×2 (08:11→20:28)
[2020-05-14] MEDS: APIXABAN 5 MG TABLET PO SCH (08:12)
[2020-05-14] MEDS: FUROSEMIDE 40 MG TAB PO SCH ×2 (08:12→20:28)
--- NOTE | 2020-05-14 08:40 | Hospitalist Progress Note ---
Date of Service May 14, 2020 Assessment & Plan (1) Cellulitis: 74-year-old female past medical history type 2 diabetes on insulin therapy, gout, polycystic kidney disease, hypothyroidism, hypertension, history of renal transplant on tacrolimus, paroxysmal A. fib admitted for right lower extremity cellulitis, IV antibiotics continue will have surgical evaluation for possible drainage of her foot wound. Patient has previously a relationship with [facility] will continue to stay within the group consideration we Dr. Yovani Faustin versus Dr. Sherie Peterson RLE cellulitis with aspiration of an area of her plantar aspect showing gram- positive's. Crystal analysis rules out gout -Right foot x-ray without signs of osteomyelitis, will perform MRI of foot and hold eliquis at this time Vanco and Zosyn, will continue right lower extremity cellulitis. -Blood cultures x2 drawn prior to antibiotic showing gram-positive's determination of MRSA is not yet complete. Did not start steroids initially for concern of diabetic exacerbation now with confirmed infection will hold off on any steroid use. AFib with RVR: -Likely secondary to dehydration and current active infection. Asymptomatic -With improvement in heart rate with diltiazem in emergency room. -Will continue home diltiazem, metoprolol, and hold Eliquis in case of surgery. Lopressor IV 5 mg q4h PRN HR >110. DM2: -Continue home Lantus and SSI. -Patient would benefit from podiatry in the outpatient setting. Patient's is typically seen [facility]. Patient prefers to stay within that group. Thrombocytopenia: -Patient with platelets to 59, platelet counts remain lower Elevated pro-BNP: -Patient with recent echo in October with normal EF, no diastolic dysfunction. -Takes Lasix 40 mg p.o. twice daily for hypertension. History of kidney transplant: Recent Monoclonal gammopathy of renal significance/glomerulonephritis treated with cytoxan No area. After final chemotherapy will have a kidney biopsy at [facility]. -Continue home tacrolimus. Code Status: FULL CODE DVT ppx: Eliquis on hold will use scd Dispo: Telemetry for IV Abx, cardiac monitoring (2) Atrial fibrillation with RVR: (3) Diabetes mellitus type II, controlled: (4) Hypothyroidism: (5) HTN (hypertension): (6) Hypercholesteremia: (7) Thrombocytopenia: (8) Elevated brain natriuretic peptide (BNP) level: (9) History of renal transplant: Admission and Anticipated Discharge Date Admission Date: May 13, 2020 Subjective pt was still having persistent foot pain and has no further drainage but fluctuance at the site on her dorsal foot. she did have an aspirate showing gram positives in clusters that also are seen on blood cultures, she is sleepy but otherwise has no new complaints Review of Systems Review of Systems: Mild distress and fatigue, foot is painful to movement no headache, blurry or double vision no speech or swallowing issues no chest pain, pressure or palpitations Has very minor baseline shortness of breath no coughing. no abdominal pain, nausea or vomiting, diarrhea or constipation Tenderness surrounding her right distal foot with erythema on the dorsum markedly painful to move no back pain, CVA tenderness or radicular pain no focal signs of weakness or numbness or altered sensation no complaints or anxiety or depression. Physical Exam Physical Exam: The patient appeared well nourished and normally developed. Significantly tender foot to movement Vital signs as documented. Head exam is normocephalic atraumatic no scleral icterus Neck is without JVD, thyromegaly, or carotid bruits. Lungs are clear to auscultation, no focal loss of breath sounds Cardiac exam, Rhythm is regular.. Systolic murmur is heard with no peripheral stigmata of endocarditis are seen Abdominal exam reveals normal bowel sounds, soft non tender, no masses Extremities right dorsal foot is erythematous there is a black punctate area at the first MTP location on the plantar aspect with surrounding fluctuance of 2 cm. Despite aspiration of a chocolatey thick material under sterile technique approximately 1/2 cc were removed. Neurologic exam is alert and oriented, no focal loss of strength, does have distal neuropathy Skin other than the dorsum foot and some chronic venous stasis changes is without bruises or rashes Psychologically is without concerns for anxiety or depression Results & Data Results & Data ([facility]) Vital Signs (Past 12 Hours) Vital Signs Temp Pulse Pulse Resp BP BP Pulse Ox 05/14/20 08:04 99.5 F 119 H 19 155/68 H 94 05/14/20 07:05 99.0 F 118 H 18 126/69 93 05/14/20 03:54 97.7 F 102 H 16 120/70 94 05/14/20 00:39 99.1 F 99 H 16 144/72 H 97 05/13/20 23:01 109 H 30 H 95 05/13/20 23:00 112 H 30 H 145/65 H 95 05/13/20 22:31 105 H 28 H 94 05/13/20 22:30 108 H 27 H 126/59 L 96 05/13/20 22:01 105 H 30 H 95 05/13/20 22:00 115 H 26 H 131/58 L 95 05/13/20 21:31 110 H 30 H 96 05/13/20 21:30 119 H 28 H 127/61 98 05/13/20 21:00 129 H 33 H 05/13/20 20:50 100.0 F H 05/13/20 20:49 126 H 20 148/82 H PG Care Time/CCT Total # of Minutes Spent Total Time Spent with Patient: Total time spent is greater than 50% in coordination of care (as documented) at patient's floor/unit and/or counseling patient: Coding Level of Care Code 87698 Subseq Hosp Care Lvl 3 Diagnoses Cellulitis L03.90 Atrial fibrillation with RVR I48.91 Diabetes mellitus type II, controlled E11.9 Hypothyroidism E03.9 HTN (hypertension) I10 Hypercholesteremia E78.00 Thrombocytopenia D69.6 Elevated brain natriuretic peptide (BNP) level R79.89 History of renal transplant Z94.0
[2020-05-14] MEDS ORDERED: PIPERACILLIN/TAZOBACTAM 4.5 GM in DEXTROSE 5% 100 ML IV SCH (10:00)
--- NOTE | 2020-05-14 10:15 | Pharmacy Report ---
Pharmacy Abx Initial Consult - Date of Service May 14, 2020 - Pharmacy Dosing Scope Date of Consult: [] Consultation requested by: [] Pharmacy is consulted to initiate [] IV/PO dosing therapy, order appropriate labs and adjust drug dose/frequency. - Subjective The patient is a 74 year old F admitted on 05/13/20 22:13. - Objective Height: 5 ft 3 in Weight: 98.8 kg Vital Signs (Past 12hrs): Vital Signs Temp Pulse Pulse Resp BP BP Pulse Ox 05/14/20 08:04 37.5 C 119 H 19 155/68 H 94 05/14/20 07:05 37.2 C 118 H 18 126/69 93 05/14/20 03:54 36.5 C 102 H 16 120/70 94 05/14/20 00:39 37.3 C 99 H 16 144/72 H 97 05/13/20 23:01 109 H 30 H 95 05/13/20 23:00 112 H 30 H 145/65 H 95 05/13/20 22:31 105 H 28 H 94 05/13/20 22:30 108 H 27 H 126/59 L 96 Lab Results (24hrs): Laboratory Tests (24 Hours) 05/14/20 05/14/20 05/13/20 06:56 06:56 20:04 WBC 3.91 L Neut # (Auto) 3.71 ESR Creatinine 1.13 Est Cr Clr Drug Dosing 49.7 C-Reactive Protein 14.60 H 05/13/20 05/13/20 05/13/20 18:56 18:56 18:56 WBC 8.43 Neut # (Auto) 7.93 H ESR 76 H Creatinine 1.19 Est Cr Clr Drug Dosing 47.2 C-Reactive Protein Micro Results: 05/13/20 22:50 Urine Culture - Pending Urine,Clean Catch 05/13/20 20:04 Aerobic Blood Culture - Pending Blood Anaerobic Blood Culture - Pending 05/13/20 20:04 Aerobic Blood Culture - Pending Blood Anaerobic Blood Culture - Pending - Risk Factors for Resistance * Diabetic * On immunomodulators for kidney transplant (1995) - Assessment & Plan Assessment 74 year old F admitted with possible R ft cellulitis vs gout. Plan vancomycin/Zosyn for treatment of cellulitis Vancomycin IV Patient meets criteria for vancomycin AUC dosing nomogram AUC/JAVON is the preferred PK/PD target for vancomycin * Target AUC/JAVON = 400-600 * AUC guided dosing is effective and associated with decreased risk of nephrotoxicity Piperacillin/tazobactam * 3.375 g bolus administered over 30 minutes, then 3.375 g IV extended infusion every 8 hours for CrCl greater than 20 mL/min * did not choose to increase dose since BMI > 35 secondary to history of renal transplant plus the use of several nephrotoxic medications Pharmacy will continue to follow and will adjust dose/frequency as necessary. Thank you.
[2020-05-14 10:24] LABS: Estimated Average Glucose 137 mg/dl; Hemoglobin A1C 6.4 % (4.5-5.6)
--- NOTE | 2020-05-14 15:19 | Electrocardiogram Report ---
Test Reason : Blood Pressure : / mmHG Vent. Rate : 154 BPM Atrial Rate : 136 BPM P-R Int : 000 ms QRS Dur : 068 ms QT Int : 276 ms P-R-T Axes : 000 025 078 degrees QTc Int : 442 ms Atrial fibrillation with rapid ventricular response Nonspecific T wave abnormality Abnormal ECG When compared with ECG of 05-APR-2020 17:08, T wave inversion no longer evident in Lateral leads Confirmed by Tom Cunningham ([id number]) on 05/14/2020 3:19:41 PM Referred By: REFERRED SELF Confirmed By:Kristopher Cunningham
[2020-05-14] MEDS ORDERED: LIDOCAINE/EPINEPHRINE 1% 20 ML VIAL INFIL ONE (16:40)
[2020-05-14] MEDS ORDERED: LIDOCAINE/EPINE 2% 1:100,000 20ML INFIL STA (16:43)
--- NOTE | 2020-05-14 18:41 | Consultation Report ---
DATE OF CONSULTATION: 05/14/2020 I was consulted to see the patient by Dr. Funez. She has a 3-week history of pain, swelling and redness on the bottom of her right foot. She recalls no injury. She reported having some drainage. She was admitted to the hospital on Tuesday for cellulitis. Dr. Funez did aspirate some fluid, which grew out staph. We have agreed on ordering an MRI. Her x-rays are reviewed showing soft tissue swelling, no fracture, foreign material or osteomyelitis. She is well known to me from the outpatient setting. She has a history of a kidney transplant, diabetes, atrial fibrillation and she is on a blood thinner. Her health history and medications are noted and reviewed. Her Eliquis has been held since this morning. She has a temperature of 38, slightly tachycardic. Vital signs are otherwise stable. White count is 4, hemoglobin 9, hematocrit 26, platelets 43. INR is 1.3. Lactate 1.1. PRP is noted. BUN and creatinine are elevated. She has a 1+ dorsalis pedis. There is a petechial hemorrhage on the dorsum of the foot with 1+ edema. She can flex and extend the ankle and wiggle her toes. There is discomfort on moving of the big toe more towards the plantar aspect. There is a black spot on the plantar aspect of the first metatarsophalangeal joint with an area of swelling about 1.5-2 cm in diameter of a tender fluctuance. There is surrounding erythema on the bottom and dorsum of the foot. The mid foot is soft and nontender. The dorsum and medial sides of the joint are slightly swollen and erythematous but not severely swollen. The remainder of the metatarsophalangeal joint seemed to be okay. Her sensation is intact. Verbal consent is obtained. Preprocedural timeout is done. We talked about the risks of bleeding and infection. 10 mL of 1% lidocaine with epinephrine were injected for a field block. After adequate analgesia, an incision was made 1.5 cm in length longitudinally centered over the black spot plantar first MTP joint. Immediately there came out dark loculated fluid consistent with purulence and perhaps some blood. Old blood. I then explored with a Shaila clamp and removed the remainder of the material after taking a culture. This was sent for Gram stain, aerobic and anaerobic. I then irrigated with 250 mL of sterile saline, packed it with iodoform gauze and applied a foot dressing. We will follow up on cultures. Obtain an MRI to rule out osteomyelitis. I explored digitally and I could feel probably the sesamoids, but no exposed bone. It appeared to be fairly localized to the subcutaneous tissues. Continue intravenous antibiotics. She can weightbear as tolerated on her heel using a postop shoe. Elevate the foot and apply ice. Continue IV antibiotics. blood loss minimal. bleeding controlled w pressure MTDD
[2020-05-14] MEDS: lisinopriL 10 MG TAB PO SCH (20:27)
[2020-05-14] MEDS: SIMVASTATIN 20 MG TAB PO SCH (20:28)
[2020-05-14] MEDS ORDERED: COLCHICINE 0.6 MG TAB PO SCH (21:00)
--- NOTE | 2020-05-14 23:20 | Billing Data ---
Date of Service May 14, 2020 Coding Level of Care Code 99871 Initial Inpt Care Lvl 3
[2020-05-15] MEDS: PIPERACILLIN/TAZOBACTAM 3.375 GM in DEXTROSE 5% 100 ML IV SCH ×2 (04:19→10:07)
[2020-05-15] MEDS ORDERED: VANCOMYCIN TROUGH ONE (05:30)
[2020-05-15] MEDS: VANCOMYCIN HCL 1,000 MG in SODIUM CHLORIDE 0.9% 250 ML IV SCH (06:03)
[2020-05-15 06:14] LABS: Est GFR (Non-African American) 50.9
[2020-05-15] MEDS: LEVOTHYROXINE SODIUM 75 MCG TABLET PO SCH (06:15)
[2020-05-15 07:50] LABS: Mean Corpuscular Hgb Conc 34.3 g/dL (32-36)
[2020-05-15 08:06] LABS: Hematocrit (blood only) 24.8 % (37-47); Hemoglobin 8.5 g/dL (12.0-16.0); Mean Corpuscular Hemoglobin 34.1 pg (25-34); Mean Corpuscular Volume 99.6 fL (80-100); RDW Coefficient of Variation 19.7 % (11.5-14.5); RDW Standard Deviation 71.5 fL (36.4-46.3); Red Blood Count 2.49 M/uL (4.2-5.4); White Blood Count 3.79 K/uL (4.8-10.8)
[2020-05-15 08:08] LABS: BUN Creatinine Ratio 31.8 (10-20); Calcium 8.7 mg/dl (8.5-10.1); Creatinine Clr Calc Pharmacy 51.8 ml/min; Est GFR (African American) 60.3
--- NOTE | 2020-05-15 08:13 | Magnetic Resonance Report ---
MR foot RT w/o con HISTORY: 74 years-old Female foot infection acute pain of the right great toe with reported soft tis humble infection. Clinical concern for possible osteomyelitis. COMPARISON: Right foot radiographs 05/13/2020 TECHNIQUE: Multiplanar multisequence MRI of the right foot was obtained without the use of IV contras t FINDINGS: Study is mildly motion degraded. There is extensive subcutaneous edema throughout the foot, most pron ounced in the forefoot. Intramuscular edema is also noted throughout. Evaluation of the tendons and l igaments of limited secondary to motion. No definite acute ligamentous or tendinous tear identified. Lisfranc ligament is identified and appears intact. No evidence of intermetatarsal bursitis or perine ural fibrosis (Jose neuroma). 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 Mild subcortical cystic change and edema involves the first metatarsal head. Moderate degeneration of the sesamoid articulations wit h the first metatarsal head. No definitive osseous erosion identified to suggest osteomyelitis. There is a large complex joint effusion containing debris within the first MTP joint. There is a cutaneous ulcer noted within the plantar tissues adjacent to the first MTP joint which contains areas of signa l dropout suggestive of deep tissue air. Moderate skin thickening. IMPRESSION: 1. Cutaneous ulcer of the plantar medial forefoot adjacent to the first MTP joint is noted with areas of signal dropout, possibly reflective of subcutaneous emphysema. There is adjacent skin thickening suggestive of cellulitis. No drainable fluid collection. 2. No definitive evidence of osteomyelitis. 3. Hallux valgus deformity with moderate osteoarthritis of the first MTP joint. Mild associated subco rtical cystic change and edema is likely on a degenerative basis. 4. Large first MTP complex joint effusion with intra-articular debris. This should be correlated clin ically to exclude septic arthropathy. 5. Extensive diffuse subcutaneous edema of the foot suggests cellulitis, lymphedema or venous stasis. Intramuscular edema is likely secondary to chronic denervation changes. ACT 112: Negative or not required by law. The above report was generated using voice recognition software. It may contain grammatical, syntax o r spelling errors. Electronically signed by: Shubham Bear M.D. 05/15/2020 8:12 AM
[2020-05-15 08:14] LABS: Platelet Estimate Decreased (Normal)
[2020-05-15] MEDS: TACROLIMUS 0.5 MG CAP PO SCH ×2 (08:17→21:03)
[2020-05-15] MEDS: METOPROLOL TARTRATE 25 MG TAB PO SCH ×2 (08:17→21:03)
[2020-05-15] MEDS: FAMOTIDINE 20 MG TAB PO SCH (08:17)
[2020-05-15] MEDS: dilTIAZem HCL 240 MG CAPCR PO SCH (08:18)
[2020-05-15] MEDS: FUROSEMIDE 40 MG TAB PO SCH ×2 (08:18→21:03)
[2020-05-15 08:36] LABS: Dohle Bodies 1+; Toxic Granulation 1+
[2020-05-15] MEDS: INSULIN ASPART 100 UNITS/ML 3 ML PEN SC SCH ×4 (08:54→21:03)
[2020-05-15] MEDS: INSULIN GLARGINE SOLOSTAR 100 UNITS/ML 3 ML PEN SC SCH (08:55)
--- NOTE | 2020-05-15 10:00 | Pharmacy Report ---
Pharmacy Abx Dose Short Note - Date of Service May 15, 2020 - Assessment & Plan Assessment 74 year old F receiving vancomycin and zosyn for treatment of R foot cellulitis Day #3 of antimicrobial therapy. Plan Vancomycin * Trough level came back therapeutic at ~18 mcg/ml (goal ~20 mcg/ml for bacteremia) * Level drawn slightly before steady state, so anticipate level to be slightly higher. Blood cultures now positive for staph species so prefer higher trough level. PCR suggestive of MSSA * Continue current dosing for now as R foot cultures are still pending. * Will plan to collect repeat trough tomorrow to ensure level not supratherapeutic Piperacillin/tazobactam * 3.375 g IV extended infusion every 8 hours for CrCl greater than 20 mL/min * will continue with lower dosing for now d/t history of renal transplant plus the use of several nephrotoxic medications Pharmacy will continue to follow and will adjust dose/frequency as necessary. Thank you.
[2020-05-15 12:07] LABS: Platelet Count 49 K/uL (130-400)
--- NOTE | 2020-05-15 14:28 | Hospitalist Progress Note ---
Date of Service May 15, 2020 Assessment & Plan (1) Cellulitis: 74-year-old female past medical history type 2 diabetes on insulin therapy, gout, polycystic kidney disease, hypothyroidism, hypertension, history of renal transplant on tacrolimus, paroxysmal A. fib admitted for right lower extremity cellulitis, IV antibiotics continue will have surgical evaluation for possible drainage of her foot wound. Patient has previously a relationship with [facility] orthopedics will continue to stay within the group consideration we Dr. Yovani Faustin versus Dr. Sherie Peterson RLE cellulitis with aspiration of an area of her plantar aspect showing gram- positive's. Crystal analysis rules out gout -Right foot x-ray without signs of osteomyelitis, will perform MRI of foot and hold eliquis at this time Vanco and Zosyn, will continue right lower extremity cellulitis. -Blood cultures x2 drawn prior to antibiotic showing gram-positive's determination of MRSA is not yet complete. Did not start steroids initially for concern of diabetic exacerbation now with confirmed infection will hold off on any steroid use. AFib with RVR: -Likely secondary to dehydration and current active infection. Asymptomatic -With improvement in heart rate with diltiazem in emergency room. -Will continue home diltiazem, metoprolol, and hold Eliquis in case of surgery. Lopressor IV 5 mg q4h PRN HR >110. DM2: -Continue home Lantus and SSI. -Patient would benefit from podiatry in the outpatient setting. Patient's is typically seen [facility] orthopedics. Patient prefers to stay within that group. Thrombocytopenia: -Patient with platelets to 59, platelet counts remain lower Elevated pro-BNP: -Patient with recent echo in October with normal EF, no diastolic dysfunction. -Takes Lasix 40 mg p.o. twice daily for hypertension. History of kidney transplant: Recent Monoclonal gammopathy of renal significance/glomerulonephritis treated with cytoxan No area. After final chemotherapy will have a kidney biopsy at [facility]. -Continue home tacrolimus. Code Status: FULL CODE DVT ppx: Eliquis on hold will use scd Dispo: Telemetry for IV Abx, cardiac monitoring (2) Gout attack: (3) Atrial fibrillation with RVR: (4) Diabetes mellitus type II, controlled: (5) Hypothyroidism: (6) HTN (hypertension): (7) Hypercholesteremia: (8) Thrombocytopenia: (9) Elevated brain natriuretic peptide (BNP) level: (10) History of renal transplant: Admission and Anticipated Discharge Date Admission Date: May 13, 2020 Subjective this pt has improved discomfort with drainage at the bedside by Dr Soares, MRI may suggest MTP joint fluid, will await further recommendation by surgery. Based on suspicion of MSSA by pcr, will change to nafcillin overall the pt feels much better Review of Systems Review of Systems: Mild distress and fatigue, foot is less painful to movement no headache, blurry or double vision no speech or swallowing issues no chest pain, pressure or palpitations Has resolution of shortness of breath no coughing. no abdominal pain, nausea or vomiting, diarrhea or constipation Tenderness surrounding her right distal foot orthopedics has dressing in place no back pain, CVA tenderness or radicular pain no focal signs of weakness or numbness or altered sensation no complaints or anxiety or depression. Physical Exam Physical Exam: The patient appeared well nourished and normally developed. Significantly tender foot to movement Vital signs as documented. Head exam is normocephalic atraumatic no scleral icterus Neck is without JVD, thyromegaly, or carotid bruits. Lungs are clear to auscultation, no focal loss of breath sounds Cardiac exam, Rhythm is regular.. Systolic murmur is heard Abdominal exam reveals normal bowel sounds, soft non tender, no masses Extremities right dorsal foot is erythematous Neurologic exam is alert and oriented, no focal loss of strength, does have distal neuropathy Skin other than the dorsum foot and some chronic venous stasis changes is without bruises or rashes Psychologically is without concerns for anxiety or depression Results & Data Results & Data ([facility]) Vital Signs (Past 12 Hours) Vital Signs Temp Pulse Resp BP Pulse Ox 05/15/20 11:19 97.2 F L 86 20 109/65 97 05/15/20 07:30 97.7 F 91 H 18 116/71 97 05/15/20 05:26 97.9 F 91 H 18 115/66 98 PG Care Time/CCT Total # of Minutes Spent Total Time Spent with Patient: Total time spent is greater than 50% in coordination of care (as documented) at patient's floor/unit and/or counseling patient: Coding Level of Care Code 66299 Subseq Hosp Care Lvl 3 Diagnoses Cellulitis L03.90 Gout attack M10.9 Atrial fibrillation with RVR I48.91 Diabetes mellitus type II, controlled E11.9 Hypothyroidism E03.9 HTN (hypertension) I10 Hypercholesteremia E78.00 Thrombocytopenia D69.6 Elevated brain natriuretic peptide (BNP) level R79.89 History of renal transplant Z94.0
[2020-05-15] MEDS ORDERED: NAFCILLIN SODIUM 1,000 MG in DEXTROSE 5% 100 ML IV SCH (14:30)
--- NOTE | 2020-05-15 16:01 | Anesthesiology Consultation ---
Date of Service May 15, 2020 Assessment & Plan (1) Encounter for pre-operative examination: Chart Review Chart Review: Acceptable Risk for Surgery and Patient NOT seen in Pre Admission Testing Consults Requested none History Surgery Operation Date: 05/15/20 07:00 Proposed Procedures p Right Foot, Great Toe Incision and Drainage - Jovon Soares MD Height/Weight Height: 5 ft 3 in Weight: 95.1 kg Allergies Allergy/AdvReac Type Severity Reaction Status Date / Time adhesive Allergy Intermediate [email or web address] Verified 05/13/20 19:20 WITH ADHESIVE TAPE, blisters No Known Drug Allergies Allergy Unknown [email or web address] Verified 05/13/20 19:20 Medications Home Medications Medication Instructions Recorded Confirmed Last Taken multivitamin 1 tab PO QAM #0 05/23/06 05/13/20 11/13/19 omega [id number]-fish oil [Fish Oil] 2,000 mg PO BID #0 10/30/10 05/13/20 11/13/19 folic acid 1 mg PO QAM #0 05/07/12 05/13/20 11/13/19 lutein 20 mg PO QAM #0 11/11/14 05/13/20 11/13/19 simvastatin 20 mg PO HS #0 11/11/14 05/13/20 11/13/19 furosemide 40 mg PO BID #0 12/20/17 05/13/20 11/13/19 insulin aspart U-100 100 unit/mL 1 unit SUBCUT AC ml 06/15/19 05/13/20 11/14/19 (3 mL) subcutaneous pen lancets 33 gauge #100 ea 06/15/19 05/07/20 Unknown calcium carbonate-vitamin D3 600 1 tab PO QAM #0 tab 07/23/19 05/13/20 11/13/19 mg (1,500 mg)-800 unit tablet pen needle, diabetic 32 gauge x #200 ea 07/24/19 05/07/20 Unknown 5/32" tacrolimus 0.5 mg capsule 0.5 mg PO BID cap 08/28/19 05/13/20 11/14/19 zoledronic gjtp-oqhexvji-xojjq 5 5 mg IV YEARLY #0 08/31/19 05/13/20 Unknown mg/100 mL in mannitol 5 %-water intravenous piggybck insulin glargine 100 unit/mL (3 5 unit SUBCUT QAM #15 ml 11/08/19 05/13/20 Unknown mL) subcutaneous pen metoprolol tartrate 25 mg tablet 25 mg PO BID 90 Days #180 tab 11/27/19 05/13/20 Unknown diltiazem HCl 240 mg 240 mg PO QAM #90 cap 12/03/19 05/13/20 Unknown capsule,extended release 24 hr prochlorperazine maleate 10 mg 10 mg PO Q6H PRN 12/18/19 05/13/20 Unknown tablet blood sugar diagnostic #100 ea 12/21/19 05/07/20 Unknown lisinopril 10 mg tablet 10 mg PO HS #90 tab 12/27/19 05/13/20 Unknown levothyroxine 75 mcg tablet 75 mcg PO DAILY #90 tab 01/15/20 05/13/20 Unknown magnesium oxide 400 mg (241.3 mg 400 mg PO BID #180 tab 02/06/20 05/13/20 Unknown magnesium) tablet cyanocobalamin (vitamin B-12) 1,000 mcg PO DAILY #90 cap 04/06/20 05/13/20 Unknown allopurinol 300 mg tablet See Rx Instructions .ROUTE 04/14/20 05/13/20 Unknown .COMPLEX #180 tablet apixaban 5 mg tablet 5 mg PO BID #180 tab 04/17/20 05/13/20 Unknown C,E,zinc,copper 16-[id number]-wvx 1 cap PO BID 05/13/20 05/13/20 Unknown [Ocuvite Adult 50 Plus] famotidine 20 mg PO DAILY 05/13/20 05/13/20 Unknown Active Medications Generic Name Dose Route Start Last Admin Trade Name Kathy PRN Reason Stop Dose Admin Apixaban 5 mg 05/14/20 09:00 05/14/20 08:12 Eliquis PO 06/13/20 08:59 5 mg BID KARIN Administration Diltiazem HCl 240 mg 05/14/20 09:00 05/15/20 08:18 Cardizem Cd PO 06/13/20 08:59 240 mg QAM KARIN Administration Famotidine 20 mg 05/14/20 09:00 05/15/20 08:17 Pepcid PO 06/13/20 08:59 20 mg DAILY KARIN Administration Furosemide 40 mg 05/14/20 09:00 05/15/20 08:18 Lasix PO 06/13/20 08:59 40 mg BID KARIN Administration Insulin Aspart 0 units 05/14/20 07:30 05/15/20 12:54 Novolog Flexpen SC 06/13/20 07:29 Not Given ACHS KARIN Insulin Glargine 5 units 05/14/20 09:00 05/15/20 08:55 Lantus Solostar Pen SC 06/13/20 08:59 Not Given QAM KARIN Levothyroxine Sodium 75 mcg 05/14/20 06:30 05/15/20 06:15 Synthroid PO 06/13/20 06:29 75 mcg DAILYBB KARIN Administration Lisinopril 10 mg 05/14/20 21:00 05/14/20 20:27 Zestril PO 06/13/20 20:59 10 mg HS KARIN Administration Metoprolol Tartrate 25 mg 05/14/20 09:00 05/15/20 08:17 Lopressor PO 06/13/20 08:59 25 mg BID KARIN Administration Simvastatin 20 mg 05/14/20 21:00 05/14/20 20:28 Zocor PO 06/13/20 20:59 20 mg HS KARIN Administration Tacrolimus 0.5 mg 05/14/20 09:00 05/15/20 08:17 Prograf PO 06/13/20 08:59 0.5 mg BID KARIN Administration Past Medical History Medical History Atrial fibrillation (Acute) DX 2014 > NO CARDIOVERSIONS Gastric ulcer (Acute) RESOLVED HTN (hypertension) (Chronic) Hypercalcemia (Chronic) Hypercholesteremia (Chronic) Hyperparathyroidism (Chronic) Hypothyroidism (Chronic) Macular degeneration BILAT Osteoarthritis Osteoporosis (Chronic) Polycystic kidney disease (Chronic) HX > DR. ROCK > NANCY HANDY > DR. SUAREZ [facility] Exercise / Class Metabolic Activity III < 4 Walking/Shop/Light housework Past Family History Family History Mother Diabetes Father Kidney disease Hypertension Son Kidney disease Sister Kidney disease Past Surgical History Surgical History History of hysterectomy (Acute) History of squamous cell carcinoma in situ of skin (Acute) WITH REMOVAL TO HEAD History of tonsillectomy Hx of cholecystectomy (Acute) Kidney transplant recipient (Acute) RIGHT > 1995 Past Anesthesia History No Hx of Anesthesia Complications History of PONV No Hx of PONV Social History Smoking Status: Never smoker Hx Alcohol Use: No Hx Substance Use: No substance use type: does not use Physical Exam Vital Signs Last Vital Signs Temp 36.5 C 05/15/20 15:51 Pulse 90 05/15/20 15:51 Resp 20 05/15/20 15:51 BP 122/64 05/15/20 15:51 Pulse Ox 97 05/15/20 15:51 Testing Laboratory Results 05/15/20 05:34 05/15/20 05:34 PT 13.9 Seconds (9.0-12.0) H 05/13/20 18:56 INR 1.3 (0.9-1.1) H 05/13/20 18:56 APTT 34.7 Seconds (21.0-31.0) H 05/13/20 18:56 Hemoglobin A1c 6.4 % (4.5-5.6) H 05/14/20 06:56 Urine Color Yellow 05/13/20 22:50 Urine Appearance Cloudy (Clear) A 05/13/20 22:50 Urine pH 5.5 (4.5-7.5) 05/13/20 22:50 Ur Specific Berkley 1.018 (1.000-1.030) 05/13/20 22:50 Urine Protein 4+ (Negative) H 05/13/20 22:50 Urine Glucose (UA) Negative (Negative) 05/13/20 22:50 Urine Ketones Trace (Negative) H 05/13/20 22:50 Urine Nitrite Positive (Negative) A 05/13/20 22:50 Ur Leukocyte Esterase 2+ (Negative) H 05/13/20 22:50 Urine WBC (Auto) >30 /hpf (0-5) H 05/13/20 22:50 Urine RBC (Auto) 5-10 /hpf (0-4) H 05/13/20 22:50 U Hyaline Cast (Auto) 0 /lpf (0-5) 05/13/20 22:50 U Epithel Cells (Auto) 10-20 /lpf (0-5) H 05/13/20 22:50 Urine Bacteria (Auto) 2+ (Negative) H 05/13/20 22:50 05/14/20 10:13 Gram Stain - Final Foot,Right Deep Wound Culture - Preliminary Staphylococcus species 05/14/20 17:00 Gram Stain - Final Foot,Right Aerobic and Anaerobic Culture - Preliminary Staphylococcus species 05/13/20 20:04 Aerobic Blood Culture - Preliminary Blood Staphylococcus aureus Anaerobic Blood Culture - Final 05/13/20 20:04 Aerobic Blood Culture - Preliminary Blood Staphylococcus aureus Anaerobic Blood Culture - Final 05/13/20 22:50 Urine Culture - Preliminary Urine,Clean Catch Escherichia coli 05/15/20 05/15/20 11:35 07:17 POC Glucose 126 H 130 H Electrocardiogram Date: 05/13/20 Atrial fibrillation with rapid ventricular response 130s-150s Nonspecific T wave abnormality Abnormal ECG When compared with ECG of 05-APR-2020 17:08, T wave inversion no longer evident in Lateral leads Echocardiogram Date: 10/30/19 EF 65% Normal LV size and systolic function with no regional wall motion abnormalities. Normal LV strain. Mild LVH Grade 1 diastolic dysfunction of the LV
[2020-05-15] MEDS ORDERED: LIDOCAINE HCL 2% 2 ML VIAL/AMP(20MG/ML) INFIL ONE (16:07)
[2020-05-15] MEDS ORDERED: fentaNYL citrate 100 MCG/2 ML VIAL ONE (16:07)
[2020-05-15] MEDS ORDERED: MIDAZOLAM HCL 1 MG/ML 2ML VIAL ONE (16:07)
[2020-05-15] MEDS ORDERED: PROPOFOL IV EMULSION 10 MG/ML 20 ML VIAL IV ONE (16:07)
[2020-05-15] MEDS ORDERED: LIDOCAINE HCL 1% 20 ML VIAL ONE (16:08)
[2020-05-15] MEDS ORDERED: BUPIVACAINE 0.5 % 5 MG/1 ML MPF 30ML VIAL ONE (16:08)
[2020-05-15] MEDS ORDERED: BACITRACIN INJ 50,000 UNIT VIAL ONE (16:09)
--- NOTE | 2020-05-15 16:22 | History & Physical Bridge Note ---
Date of Service May 15, 2020 History & Physical Bridge Note I have examined the patient, reviewed the History & Physical and in the interval since the performance of the History & Physical I have noted the following changes of clinical significance: no changes noted
[2020-05-15] MEDS ORDERED: ONDANSETRON INJ 2 MG/ML 2 ML VIAL IV PRN ×2 (16:36→18:08)
[2020-05-15] MEDS ORDERED: ePHEDrine sulfate 50 MG/ML AMP IV PRN (16:36)
[2020-05-15] MEDS ORDERED: ATROPINE SULFATE 0.1 MG/ML 10ML SYR IV PRN (16:36)
[2020-05-15] MEDS ORDERED: fentaNYL citrate 100 MCG/2 ML VIAL IV PRN (16:36)
--- NOTE | 2020-05-15 16:43 | XCELERA ---
[id number]
[2020-05-15] MEDS ORDERED: ONDANSETRON INJ 2 MG/ML 2 ML VIAL ONE (17:25)
--- NOTE | 2020-05-15 17:38 | Operative Report ---
Post Operative Report Pre & Post Diagnosis Operation Date: 05/15/20 07:00 Pre-Op Diagnosis: Septic Arthritis of the Metarsalphalango Joint, Right Big Toe I identified the patient and participated in the time-out.: Yes Procedure Operation Date: 05/15/20 07:00 Actual Procedures p Right Foot, Great Toe Incision and Drainage(Right) - Jovon Soares MD Surgeon Jovon Soares MD Cloth Shrinking Supervisor Alda Young Estimated Blood Loss 5 Findings Consistent with Post-Op Diagnosis Specimens Culture x1 Drains Hemovac Anesthesia Type MAC Regional Complications none Disposition Accompanied Patient To Recovery: No Disposition: Recovery Room Indications Patient 74 years old. She has had a kidney transplant. Multiple medical problems including diabetes. 3-week history of right big toe pain and swelling. She had evidence of a subcutaneous abscess which was I&D 8 on the floor yesterday. This was on the plantar aspect of the foot. Cultures including blood cultures are growing out staph. Sensitivities pending. MRI done overnight showed that she had an abscess in the MTP joint and is taken to have this drained. Eliquis is been held for 24 hours. Description of Procedure Patient identified. Informed consent obtained. She identified the operative site as the right big toe. I marked with my initials. Preoperative surgical t imeout performed. She is on IV antibiotics. Packing was removed from the plantar aspect of the foot and that wound was relatively clean. The leg was exsanguinated with gravity and tourniquet inflated to 225 mmHg. Calf tourniquet applied below the fibular neck. Plantar incision was irrigated out. This was the incision for the I&D done yesterday. I marked the operative site with my initials after the patient identified it. There was fluctuance over the dorsal aspect of the MTP joint. She has a claw toe and bunion deformity. There is erythema and swelling of the foot but improved compared to yesterday. Positioned supine. Bony prominences inspected and padded. Sedation administered and prior to the start of the procedure I did a digital block using 15 cc of 1% lidocaine and 0.5% Marcaine. I made an incision over the dorsal aspect of the MTP joint about 2-1/2 cm in length. Immediately there came out blood fluid and purulence. The extensor tendons were identified and retracted out of the way. The joint was identified with a Lawtons after debriding the mucinous dorsal joint capsule and synovitis present. 1200 cc of irrigation 1000 which contain antibiotics was then irrigated into the dorsal abscess and joint. Her joint was pretty stiff. I explored around and found no further abscesses. The plantar aspect was also evaluated and found to be a healing well. Some dried skin and skin was removed. Culture of the dorsal wound was obtained after opening the joint. A was inserted in the dorsal incision. The plantar incision was packed with iodoform. Dorsal incision skin only was closed with 3- 0 nylon. A bulky soft sterile dressing was applied with fluffs between the toes Todd wrap and a postop shoe. She was taken to recovery room in stable condition. Specimens were as mentioned above. Counts were correct blood loss was 3 cc. At the conclusion operation spoke patient's family informed of my findings postop instructions were given. Elevate, ice, weight-bear as tolerated on the heel. PT. Bear weight on the heel. Follow-up on cultures. Continue intravenous antibiotics. I attest to the content of the Intraoperative Record and any orders documented therein. Any exceptions are noted below.
--- NOTE | 2020-05-15 18:05 | Anesthesiology Progress Note ---
Date of Service May 15, 2020 Anesthesia Post Procedure Vital Signs Vital Signs: Temp Pulse Pulse Resp BP Pulse Ox 05/15/20 18:00 36.4 C L 80 15 130/62 97 05/15/20 17:50 80 18 114/72 97 05/15/20 17:44 35.8 C L 93 H 16 132/71 97 05/15/20 16:18 37 C 92 H 20 130/58 L 96 05/15/20 15:51 36.5 C 90 20 122/64 97 05/15/20 11:19 36.2 C L 86 20 109/65 97 05/15/20 07:30 36.5 C 91 H 18 116/71 97 05/15/20 05:26 36.6 C 91 H 18 115/66 98 05/14/20 23:33 36.8 C 103 H 20 113/68 95 05/14/20 19:55 37.7 C H 91 H 18 118/70 96 Transfer of Care Handoff Completed per policy Notes Mental Status: alert / awake / arousable Patient Amnestic to Procedure: Yes Nausea / Vomiting: adequately controlled Pain: adequately controlled Airway Patency, RR, SpO2: stable & adequate BP & HR: stable & adequate Hydration State: stable & adequate Anesthetic Complications: no major complications apparent
[2020-05-15] MEDS ORDERED: TRAMADOL HCL 50 MG TABLET PO PRN (18:08)
[2020-05-15] MEDS ORDERED: MAGNESIUM HYDROXIDE SUSP 30 ML UDC PO PRN (18:08)
[2020-05-15] MEDS ORDERED: METOCLOPRAMIDE HCL INJ 5 MG/ML 2 ML VIAL IV PRN (18:08)
[2020-05-15] MEDS ORDERED: bisacodyL 10 MG SUPP PR PRN (18:08)
[2020-05-15] MEDS ORDERED: NALOXONE HCL 0.4 MG/1 ML VIAL/CARP IV PRN (18:08)
[2020-05-15] MEDS: CEFAZOLIN 2000MG 2,000 MG/15 ML SYR IV SCH ×2 (19:55→23:36)
[2020-05-15] MEDS: SIMVASTATIN 20 MG TAB PO SCH (21:03)
[2020-05-15] MEDS: lisinopriL 10 MG TAB PO SCH (21:03)
[2020-05-15] MEDS: DOCUSATE SODIUM 100 MG CAP PO SCH (21:04)
[2020-05-15] MEDS: SODIUM CHLORIDE 0.9% 1000ML 1,000 ML IV SCH (21:37)
[2020-05-16] MEDS: ACETAMINOPHEN 500 MG TAB PO PRN (03:34)
[2020-05-16] MEDS: SODIUM CHLORIDE 0.9% 1000ML 1,000 ML IV SCH (05:15)
[2020-05-16] MEDS: LEVOTHYROXINE SODIUM 75 MCG TABLET PO SCH (05:29)
[2020-05-16] MEDS ORDERED: VANCOMYCIN TROUGH ONE (05:30)
[2020-05-16 08:20] LABS: BUN Creatinine Ratio 27.9 (10-20); Creatinine Clr Calc Pharmacy 45.5 ml/min; Est GFR (African American) 51.4; Est GFR (Non-African American) 44.4
[2020-05-16] MEDS: CEFAZOLIN 2000MG 2,000 MG/15 ML SYR IV SCH ×3 (09:13→23:56)
[2020-05-16] MEDS: TACROLIMUS 0.5 MG CAP PO SCH ×2 (09:14→21:03)
[2020-05-16] MEDS: DOCUSATE SODIUM 100 MG CAP PO SCH ×3 (09:14→21:01)
[2020-05-16] MEDS: FAMOTIDINE 20 MG TAB PO SCH (09:14)
[2020-05-16] MEDS: dilTIAZem HCL 240 MG CAPCR PO SCH (09:14)
[2020-05-16] MEDS: FUROSEMIDE 40 MG TAB PO SCH ×2 (09:14→21:02)
[2020-05-16] MEDS: METOPROLOL TARTRATE 25 MG TAB PO SCH ×2 (09:14→21:03)
[2020-05-16] MEDS: INSULIN GLARGINE SOLOSTAR 100 UNITS/ML 3 ML PEN SC SCH (09:15)
[2020-05-16] MEDS: INSULIN ASPART 100 UNITS/ML 3 ML PEN SC SCH ×4 (09:16→21:03)
--- NOTE | 2020-05-16 14:42 | Hospitalist Progress Note ---
Date of Service May 16, 2020 Assessment & Plan (1) Cellulitis: 74-year-old female past medical history type 2 diabetes on insulin therapy, gout, polycystic kidney disease, hypothyroidism, hypertension, history of renal transplant on tacrolimus, paroxysmal A. fib admitted for right lower extremity cellulitis, IV antibiotics continue will have surgical evaluation for possible drainage of her foot wound. Patient has previously a relationship with [facility] orthopedics and I greatly appreciate the assistance of Dr. Rodger MORALES cellulitis with aspiration of an area of her plantar aspect showing gram- positive's. Crystal analysis rules out gout -Right foot x-ray without signs of osteomyelitis, MRI of foot prompted drainage of fluid, continue to hold eliquis at this time Vanco and Zosyn, now transitioned to cefazolin -Blood cultures x2 drawn prior to antibiotic showing MSSA echo did not show vegetation, will complete 2 weeks of IV therapy Did not start steroids initially for concern of diabetic exacerbation now with confirmed infection will hold off on any steroid use. AFib with RVR: rate controlled -Likely secondary to dehydration and current active infection. Asymptomatic -With improvement in heart rate with diltiazem in emergency room. -Will continue home diltiazem, metoprolol, and hold Eliquis. DM2: -Continue home Lantus and SSI. -Patient would benefit from podiatry in the outpatient setting. Patient's is typically seen [facility] orthoped[facility]. Patient prefers to stay within that group. may arrange podiatric follow up as outpt Thrombocytopenia: platelets remain lower Elevated pro-BNP: -Patient with recent echo in October with normal EF, no diastolic dysfunction. -Takes Lasix 40 mg p.o. twice daily for hypertension. History of kidney transplant: Recent Monoclonal gammopathy of renal significance/glomerulonephritis treated with cytoxan No area. After final chemotherapy will have a kidney biopsy at [facility]. -Continue home tacrolimus. Code Status: FULL CODE DVT ppx: Eliquis on hold will use scd and sc heparin, if hemostasis is achieved will restart eliquis 05/17 Dispo: Telemetry for IV Abx, cardiac monitoring (2) Gout attack: (3) Atrial fibrillation with RVR: (4) Diabetes mellitus type II, controlled: (5) Hypothyroidism: (6) HTN (hypertension): (7) Hypercholesteremia: (8) Thrombocytopenia: (9) Elevated brain natriuretic peptide (BNP) level: (10) History of renal transplant: Admission and Anticipated Discharge Date Admission Date: May 13, 2020 Subjective this pt continues to improve, now s/p I&D to right foot , MRI had shown MTP joint fluid. Based on suspicion of MSSA by pcr, will change to cefazolin overall the pt feels much better Review of Systems Review of Systems: Mild distress and fatigue, foot is less painful to movement no headache, blurry or double vision no speech or swallowing issues no chest pain, pressure or palpitations Has resolution of shortness of breath no coughing. no abdominal pain, nausea or vomiting, diarrhea or constipation Tenderness surrounding her right distal foot orthopedics has dressing in place no back pain, CVA tenderness or radicular pain no focal signs of weakness or numbness or altered sensation no complaints or anxiety or depression. Physical Exam Physical Exam: The patient appeared well nourished and normally developed. Significantly tender foot to movement Vital signs as documented. Head exam is normocephalic atraumatic no scleral icterus Neck is without JVD, thyromegaly, or carotid bruits. Lungs are clear to auscultation, no focal loss of breath sounds Cardiac exam, Rhythm is regular.. Systolic murmur is heard Abdominal exam reveals normal bowel sounds, soft non tender, no masses Extremities right dorsal foot is erythematous Neurologic exam is alert and oriented, no focal loss of strength, does have distal neuropathy Skin other than the dorsum foot and some chronic venous stasis changes is without bruises or rashes Psychologically is without concerns for anxiety or depression Results & Data Results & Data ([facility]) Vital Signs (Past 12 Hours) Vital Signs Temp Pulse Resp BP Pulse Ox 05/16/20 11:06 97.5 F L 90 20 98/65 L 99 05/16/20 03:31 98.2 F 79 18 123/77 97 PG Care Time/CCT Total # of Minutes Spent Total Time Spent with Patient: Total time spent is greater than 50% in coordination of care (as documented) at patient's floor/unit and/or counseling patient: Coding Level of Care Code 82084 Subseq Hosp Care Lvl 3 Diagnoses Cellulitis L03.90 Gout attack M10.9 Atrial fibrillation with RVR I48.91 Diabetes mellitus type II, controlled E11.9 Hypothyroidism E03.9 HTN (hypertension) I10 Hypercholesteremia E78.00 Thrombocytopenia D69.6 Elevated brain natriuretic peptide (BNP) level R79.89 History of renal transplant Z94.0
--- NOTE | 2020-05-16 16:42 | Progress Notes ---
DATE: 05/16/2020 Her foot feels better. She has been up with therapy. Able to bear weight on the heel. Drainage output minimal. She is afebrile. Cultures are growing out methicillin-sensitive staph. Her dressing is changed. Erythema is less and swelling is less. The plantar packing is removed. The dorsal drain is retained. Her sensation and capillary refill/circulation is intact. Plan is to consult wound care for her plantar wound. Pull the drain tomorrow. She will need long-term IV antibiotics. 2-6 weeks of IV antibiotics followed by orals. May need a PICC line. I will be out next week, Dr. Toscano is covering over the weekend, if there are any questions. She may weightbear on her heel with postop shoe. Continue to elevate and continue her IV antibiotics.
[2020-05-16] MEDS: lisinopriL 10 MG TAB PO SCH (21:04)
[2020-05-16] MEDS: SIMVASTATIN 20 MG TAB PO SCH (21:05)
[2020-05-16] MEDS: HEPARIN SOD 5,000 UNIT/0.5 ML VIAL SQ SCH (21:05)
[2020-05-17] MEDS: ACETAMINOPHEN 500 MG TAB PO PRN (00:03)
[2020-05-17] MEDS: LEVOTHYROXINE SODIUM 75 MCG TABLET PO SCH (06:28)
[2020-05-17 07:02] LABS: Mean Corpuscular Hgb Conc 34.3 g/dL (32-36)
[2020-05-17 07:17] LABS: Hematocrit (blood only) 25.1 % (37-47); Hemoglobin 8.6 g/dL (12.0-16.0); Mean Corpuscular Hemoglobin 34.1 pg (25-34); Mean Corpuscular Volume 99.6 fL (80-100); RDW Coefficient of Variation 19.5 % (11.5-14.5); RDW Standard Deviation 70.8 fL (36.4-46.3); Red Blood Count 2.52 M/uL (4.2-5.4); White Blood Count 3.89 K/uL (4.8-10.8)
[2020-05-17 07:33] LABS: Platelet Count 57 K/uL (130-400)
[2020-05-17 07:37] LABS: BUN Creatinine Ratio 32.4 (10-20); Calcium 8.5 mg/dl (8.5-10.1); Creatinine Clr Calc Pharmacy 41.4 ml/min; Est GFR (African American) 45.8; Est GFR (Non-African American) 39.6; Potassium 4.3 mmol/L (3.5-5.1)
[2020-05-17 08:15] LABS: Platelet Estimate Decreased (Normal)
[2020-05-17] MEDS: INSULIN ASPART 100 UNITS/ML 3 ML PEN SC SCH ×4 (09:10→21:18)
[2020-05-17] MEDS: CEFAZOLIN 2000MG 2,000 MG/15 ML SYR IV SCH ×2 (09:11→16:28)
[2020-05-17] MEDS: INSULIN GLARGINE SOLOSTAR 100 UNITS/ML 3 ML PEN SC SCH (09:11)
[2020-05-17] MEDS: FUROSEMIDE 40 MG TAB PO SCH ×2 (09:12→21:08)
[2020-05-17] MEDS: dilTIAZem HCL 240 MG CAPCR PO SCH (09:12)
[2020-05-17] MEDS: TACROLIMUS 0.5 MG CAP PO SCH ×2 (09:12→21:08)
[2020-05-17] MEDS: METOPROLOL TARTRATE 25 MG TAB PO SCH ×2 (09:13→21:08)
[2020-05-17] MEDS: FAMOTIDINE 20 MG TAB PO SCH (09:13)
[2020-05-17] MEDS: DOCUSATE SODIUM 100 MG CAP PO SCH ×2 (09:19→21:08)
[2020-05-17] MEDS: HEPARIN SOD 5,000 UNIT/0.5 ML VIAL SQ SCH (09:51)
--- NOTE | 2020-05-17 15:29 | Hospitalist Progress Note ---
Date of Service May 17, 2020 Assessment & Plan (1) Cellulitis: 74-year-old female past medical history type 2 diabetes on insulin therapy, gout, polycystic kidney disease, hypothyroidism, hypertension, history of renal transplant on tacrolimus, paroxysmal A. fib admitted for right lower extremity cellulitis, IV antibiotics continue will have surgical evaluation for possible drainage of her foot wound. Patient has previously a relationship with [facility] orthopedics and I greatly appreciate the assistance of Dr. Rodger MORALES cellulitis with aspiration of an area of her plantar aspect showing gram- positive's. Crystal analysis rules out gout -Right foot x-ray without signs of osteomyelitis, MRI of foot prompted drainage of fluid, will resume eliquis at this time Vanco and Zosyn, now transitioned to cefazolin -Blood cultures x2 drawn prior to antibiotic showing MSSA-> repeat blood cultures of 05/16 negative if remain so, will place line on 05/09- for outpt antibiotics, likely transition to rocephin 2 gm daily echo did not show vegetation, will complete 2 weeks of IV therapy Did not start steroids initially for concern of diabetic exacerbation now with confirmed infection will hold off on any steroid use. AFib with RVR: rate controlled -Likely secondary to dehydration and current active infection. Asymptomatic -With improvement in heart rate with diltiazem in emergency room. -Will continue home diltiazem, metoprolol, andresume Eliquis. DM2: -Continue home Lantus and SSI. -Patient would benefit from podiatry in the outpatient setting. Patient's is typically seen [facility] orthopedics. Patient prefers to stay with n that group. may arrange podiatric follow up as outpt Thrombocytopenia: platelets remain lower Elevated pro-BNP: -Patient with recent echo in October with normal EF, no diastolic dysfunction. -Takes Lasix 40 mg p.o. twice daily for hypertension. History of kidney transplant: Recent Monoclonal gammopathy of renal significance/glomerulonephritis treated with cytoxan No area. After final chemotherapy will have a kidney biopsy at [facility]. -Continue home tacrolimus. Code Status: FULL CODE DVT ppx: restart eliquis 05/17 Dispo: Telemetry for IV Abx, cardiac monitoring (2) Gout attack: (3) Atrial fibrillation with RVR: (4) Diabetes mellitus type II, controlled: (5) Hypothyroidism: (6) HTN (hypertension): (7) Hypercholesteremia: (8) Thrombocytopenia: (9) Elevated brain natriuretic peptide (BNP) level: (10) History of renal transplant: Admission and Anticipated Discharge Date Admission Date: May 13, 2020 Subjective this pt continues to improve, now s/p I&D to right foot , MRI had shown MTP joint fluid. Based on suspicion of MSSA by pcr, will change to cefazolin overall the pt feels much better, did ambulate with a walk with a walker and now is looking forward to going home Review of Systems Review of Systems: Mild distress and fatigue, foot is less painful to movement no headache, blurry or double vision no speech or swallowing issues no chest pain, pressure or palpitations Has resolution of shortness of breath no coughing. no abdominal pain, nausea or vomiting, diarrhea or constipation Tenderness surrounding her right distal foot orthopedics has dressing in place no back pain, CVA tenderness or radicular pain no focal signs of weakness or numbness or altered sensation no complaints or anxiety or depression. Physical Exam Physical Exam: The patient appeared well nourished and normally developed. Significantly tender foot to movement Vital signs as documented. Head exam is normocephalic atraumatic no scleral icterus Neck is without JVD, thyromegaly, or carotid bruits. Lungs are clear to auscultation, no focal loss of breath sounds Cardiac exam, Rhythm is regular.. Systolic murmur is heard Abdominal exam reveals normal bowel sounds, soft non tender, no masses Extremities right dorsal foot is erythematous Neurologic exam is alert and oriented, no focal loss of strength, does have distal neuropathy Skin other than the dorsum foot and some chronic venous stasis changes is without bruises or rashes Psychologically is without concerns for anxiety or depression PG Care Time/CCT Total # of Minutes Spent Total Time Spent with Patient: Total time spent is greater than 50% in coordination of care (as documented) at patient's floor/unit and/or counseling patient: Coding Level of Care Code 80254 Subseq Hosp Care Lvl 3 Diagnoses Cellulitis L03.90 Gout attack M10.9 Atrial fibrillation with RVR I48.91 Diabetes mellitus type II, controlled E11.9 Hypothyroidism E03.9 HTN (hypertension) I10 Hypercholesteremia E78.00 Thrombocytopenia D69.6 Elevated brain natriuretic peptide (BNP) level R79.89 History of renal transplant Z94.0
--- NOTE | 2020-05-17 17:11 | Orthopedic Progress Note ---
Date of Service May 17, 2020 Assessment & Plan (1) Foot ulcer, right: POD #2 - s/p I & D right foot Continue IV antibiotics. May need PICC placement, recommend continuing IV antibiotics x 2-6 weeks Cultures show MSSA - antibiotics as per primary team Continue diet - no plans for more surgery. May be out of bed, weight bear as tolerated right heel with post op shoe on right foot with assistance of a walker Dressings changed right foot today Keep dressing on right foot, change/reinforce PRN. Elevate right foot as needed for swelling. Will follow while inpatient and will discuss today's findings with Dr. Toscano Hemovac removed today. Call with questions or concerns. Okay for discharge from ortho standpoint when medically stable. Admission and Anticipated Discharge Date Admission Date: May 13, 2020 Subjective Doing well, no complaints of pain right foot. States that she's been out of bed, weight bearing thru her heel with shoe on, walking throughout hallway. Physical Exam Physical Exam: right foot with mild edema, erythema still on dorsum of foot at base of toes, positive skin wrinkles. toes move well. No pain with passive or active ROM right great toe. Incision clean, dry, intact. Retained sutures. Hemovac functioning - removed at bedside. Mild clear bloody serousanguinous drainage from hemovac site, no purulence. Full ROM right ankle. Plantar wound without drainage, healing, nontender, no fluctuance of right foot dorsally or plantarly. Results & Data ([facility]) Vital Signs (Past 12 Hours) Vital Signs Temp Pulse Resp BP Pulse Ox 05/17/20 16:00 36.4 C L 85 18 110/67 98 Laboratory Results 05/17/20 05/17/20 05/17/20 Range/Units 16:20 11:52 07:45 WBC (4.8-10.8) K/uL RBC (4.2-5.4) M/uL Hgb (12.0-16.0) g/dL Hct (37-47) % MCV (80-100) fL MCH (25-34) pg MCHC (32-36) g/dL RDW Std Deviation (36.4-46.3) fL RDW Coeff of Lidya (11.5-14.5) % Plt Count (130-400) K/uL Blood Smear Review Platelet Estimate (Normal) Sodium (136-145) mmol/L Potassium (3.5-5.1) mmol/L Chloride (98-107) mmol/L Carbon Dioxide (21-32) mmol/L Anion Gap (3-11) BUN (7-18) mg/dl Creatinine (0.6-1.2) mg/dl Est Cr Clr Drug Dosing ml/min Est GFR ( Amer) Est GFR (Non-Af Amer) BUN/Creatinine Ratio (10-20) Glucose (70-99) mg/dl POC Glucose 95 113 H 129 H (70-99) mg/dl Calcium (8.5-10.1) mg/dl 05/17/20 05/17/20 05/16/20 Range/Units 06:28 06:28 20:28 WBC 3.89 L (4.8-10.8) K/uL RBC 2.52 L (4.2-5.4) M/uL Hgb 8.6 L (12.0-16.0) g/dL Hct 25.1 L (37-47) % MCV 99.6 (80-100) fL MCH 34.1 H (25-34) pg MCHC 34.3 (32-36) g/dL RDW Std Deviation 70.8 H (36.4-46.3) fL RDW Coeff of Lidya 19.5 H (11.5-14.5) % Plt Count 57 L (130-400) K/uL Blood Smear Review Pending Platelet Estimate Decreased L (Normal) Sodium 138 (136-145) mmol/L Potassium 4.3 (3.5-5.1) mmol/L Chloride 107 (98-107) mmol/L Carbon Dioxide 23 (21-32) mmol/L Anion Gap 8.0 (3-11) BUN 43 H (7-18) mg/dl Creatinine 1.33 H (0.6-1.2) mg/dl Est Cr Clr Drug Dosing 41.4 ml/min Est GFR ( Amer) 45.8 Est GFR (Non-Af Amer) 39.6 BUN/Creatinine Ratio 32.4 H (10-20) Glucose 121 H (70-99) mg/dl POC Glucose 105 H (70-99) mg/dl Calcium 8.5 (8.5-10.1) mg/dl Microbiology 05/15/20 17:08 Gram Stain - Final Foot,Right Aerobic and Anaerobic Culture - Preliminary Staphylococcus aureus 05/16/20 07:31 Aerobic Blood Culture - Preliminary Blood No growth in Aerobic bottle after 24 hours. Anaerobic Blood Culture - Preliminary No growth in Anaerobic bottle after 24 hours. 05/16/20 07:42 Aerobic Blood Culture - Preliminary Blood No growth in Aerobic bottle after 24 hours. Anaerobic Blood Culture - Preliminary No growth in Anaerobic bottle after 24 hours. 05/14/20 17:00 Gram Stain - Final Foot,Right Aerobic and Anaerobic Culture - Preliminary Staphylococcus aureus (1) Foot ulcer, right Non-pressure ulcer stage: unspecified non-pressure ulcer stage Qualified Code(s): L97.519 - Non-pressure chronic ulcer of other part of right foot with unspecified severity
[2020-05-17] MEDS: lisinopriL 10 MG TAB PO SCH (21:08)
[2020-05-17] MEDS: SIMVASTATIN 20 MG TAB PO SCH (21:09)
[2020-05-17] MEDS: APIXABAN 5 MG TABLET PO SCH (21:50)
[2020-05-18] MEDS: CEFAZOLIN 2000MG 2,000 MG/15 ML SYR IV SCH ×4 (00:53→23:25)
[2020-05-18] MEDS: LEVOTHYROXINE SODIUM 75 MCG TABLET PO SCH (06:03)
[2020-05-18 06:39] LABS: BUN Creatinine Ratio 31.9 (10-20); Calcium 8.5 mg/dl (8.5-10.1); Creatinine Clr Calc Pharmacy 46.7 ml/min; Est GFR (Non-African American) 45.7; Potassium 4.2 mmol/L (3.5-5.1)
--- NOTE | 2020-05-18 07:13 | Hospitalist Progress Note ---
Date of Service May 18, 2020 Assessment & Plan (1) Cellulitis: 74-year-old female past medical history type 2 diabetes on insulin therapy, gout, polycystic kidney disease, hypothyroidism, hypertension, history of renal transplant on tacrolimus, paroxysmal A. fib admitted for right lower extremity cellulitis, found to have MSSA cellulitis extending to first MTP joint requirning I&D and washout RLE cellulitis with aspiration of an area of her plantar aspect showing MSSA Crystal analysis rules out gout -Right foot x-ray without signs of osteomyelitis, MRI also without osteo but 1st MTP joint involvement resulting in joint washout INitially held Eliquis now resumed Initially Vanco and Zosyn, now transitioned to cefazolin -Blood cultures x2 drawn prior to antibiotic showing MSSA-> repeat blood cultures of 05/16 negative if remain so, will place line for outpt antibiotics, likely transition to rocephin 2 gm daily echo did not show vegetation, will complete 2 weeks of IV therapy Did not start steroids initially for concern of diabetic exacerbation now with confirmed infection will hold off on any steroid use. AFib with RVR: rate controlled -Likely secondary to dehydration and current active infection. Asymptomatic -With improvement in heart rate with diltiazem in emergency room. -Will continue home diltiazem, metoprolol, and resume Eliquis. DM2: -Continue home Lantus and SSI. -Patient would benefit from podiatry in the outpatient setting. Patient's is typically seen [facility]. Patient prefers to stay within that group. may arrange podiatric follow up as outpt Thrombocytopenia: platelets remain lower Elevated pro-BNP: -Patient with recent echo in October with normal EF, no diastolic dysfunction. -Takes Lasix 40 mg p.o. twice daily for hypertension. History of kidney transplant: Recent Monoclonal gammopathy of renal significance/glomerulonephritis treated with cytoxan No area. After final chemotherapy will have a kidney biopsy at [facility]. -Continue home tacrolimus. Code Status: FULL CODE DVT ppx: restart eliquis 05/17 Dispo: home antibiotics likely needed (2) Atrial fibrillation with RVR: (3) Diabetes mellitus type II, controlled: (4) Hypothyroidism: (5) HTN (hypertension): (6) Hypercholesteremia: (7) Thrombocytopenia: (8) Elevated brain natriuretic peptide (BNP) level: (9) History of renal transplant: Admission and Anticipated Discharge Date Admission Date: May 13, 2020 Subjective Doing well, no complaints of pain right foot. States that she's been out of bed, weight bearing thru her heel with shoe on, walking throughout hallway. Pt feels she is ambulating well enough to go home Review of Systems Review of Systems: Mild distress and fatigue, foot is less painful to movement no headache, blurry or double vision no speech or swallowing issues no chest pain, pressure or palpitations Has resolution of shortness of breath no coughing. no abdominal pain, nausea or vomiting, diarrhea or constipation Tenderness surrounding her right distal foot orthopedics has dressing in place no back pain, CVA tenderness or radicular pain no focal signs of weakness or numbness or altered sensation no complaints or anxiety or depression. Physical Exam Physical Exam: The patient appeared well nourished and normally developed. Significantly tender foot to movement Vital signs as documented. Head exam is normocephalic atraumatic no scleral icterus Neck is without JVD, thyromegaly, or carotid bruits. Lungs are clear to auscultation, no focal loss of breath sounds Cardiac exam, Rhythm is regular.. Systolic murmur is heard Abdominal exam reveals normal bowel sounds, soft non tender, no masses Extremities right dorsal foot is erythematous Neurologic exam is alert and oriented, no focal loss of strength, does have distal neuropathy Skin other than the dorsum foot and some chronic venous stasis changes is without bruises or rashes Psychologically is without concerns for anxiety or depression Results & Data Results & Data ([facility]) Vital Signs (Past 12 Hours) Vital Signs Temp Pulse Resp BP Pulse Ox 05/18/20 00:44 98.6 F 88 20 118/71 97 PG Care Time/CCT Total # of Minutes Spent Total Time Spent with Patient: Total time spent is greater than 50% in coordination of care (as documented) at patient's floor/unit and/or counseling p atient: Coding Level of Care Code 27158 Subseq Hosp Care Lvl 3 Diagnoses Cellulitis L03.90 Atrial fibrillation with RVR I48.91 Diabetes mellitus type II, controlled E11.9 Hypothyroidism E03.9 HTN (hypertension) I10 Hypercholesteremia E78.00 Thrombocytopenia D69.6 Elevated brain natriuretic peptide (BNP) level R79.89 History of renal transplant Z94.0
[2020-05-18] MEDS: ACETAMINOPHEN 500 MG TAB PO PRN (08:06)
[2020-05-18] MEDS: APIXABAN 5 MG TABLET PO SCH ×2 (08:08→21:02)
[2020-05-18] MEDS: FAMOTIDINE 20 MG TAB PO SCH (08:09)
[2020-05-18] MEDS: TACROLIMUS 0.5 MG CAP PO SCH ×2 (08:09→21:02)
[2020-05-18] MEDS: INSULIN GLARGINE SOLOSTAR 100 UNITS/ML 3 ML PEN SC SCH (08:10)
[2020-05-18] MEDS: DOCUSATE SODIUM 100 MG CAP PO SCH ×2 (08:11→21:17)
[2020-05-18] MEDS: INSULIN ASPART 100 UNITS/ML 3 ML PEN SC SCH ×4 (08:12→21:00)
[2020-05-18] MEDS: FUROSEMIDE 40 MG TAB PO SCH ×2 (08:16→21:01)
[2020-05-18] MEDS: dilTIAZem HCL 240 MG CAPCR PO SCH (08:17)
[2020-05-18] MEDS: METOPROLOL TARTRATE 25 MG TAB PO SCH ×2 (08:17→21:02)
--- NOTE | 2020-05-18 09:16 | Orthopedic Progress Note ---
Date of Service May 18, 2020 Assessment & Plan (1) Foot ulcer, right: POD #3 - s/p I & D right foot Continue IV antibiotics. May need PICC placement, recommend continuing IV antibiotics x 2-6 weeks Cultures show MSSA - antibiotics as per primary team Continue diet - no plans for more surgery. May be out of bed, weight bear as tolerated right heel with post op shoe on right foot with assistance of a walker Keep dressing on right foot, change/reinforce PRN. Elevate right foot as needed for swelling. Will follow while inpatient and will discuss today's findings with Dr. Toscano Call with questions or concerns. Okay for discharge from ortho standpoint when medically stable, would recommend discharge with home health for dressing changes to right foot. Follow up with Dr. Soares in 7-10 days. Admission and Anticipated Discharge Date Admission Date: May 13, 2020 Subjective Doing well. Sitting out of bed in chair. No complaints of pain right foot. She has foot elevated on stool, moving leg and ankle. Pleasant. Physical Exam Physical Exam: Right foot dressings clean,dry and intact. Boot right foot in place. Tolerates active and passive ROM right toes without pain. Cap refill brisk. Sensation intact to light touch. Full ankle ROM, mild edema right lower leg, nontender right calf. Calf supple. Strength with dorsiflexion and plantarflexion intact. Results & Data ([facility]) Vital Signs (Past 12 Hours) Vital Signs Temp Pulse Resp BP Pulse Ox 05/18/20 08:00 36.3 C L 80 18 100/64 95 05/18/20 00:44 37.0 C 88 20 118/71 97 Laboratory Results 05/18/20 05/18/20 05/17/20 Range/Units 07:59 05:44 20:37 Sodium 140 (136-145) mmol/L Potassium 4.2 (3.5-5.1) mmol/L Chloride 108 H (98-107) mmol/L Carbon Dioxide 27 (21-32) mmol/L Anion Gap 5.0 (3-11) BUN 38 H (7-18) mg/dl Creatinine 1.18 (0.6-1.2) mg/dl Est Cr Clr Drug Dosing 46.7 ml/min Est GFR ( Amer) 53.0 Est GFR (Non-Af Amer) 45.7 BUN/Creatinine Ratio 31.9 H (10-20) Glucose 98 (70-99) mg/dl POC Glucose 121 H 72 (70-99) mg/dl Calcium 8.5 (8.5-10.1) mg/dl 05/17/20 05/17/20 Range/Units 16:20 11:52 Sodium (136-145) mmol/L Potassium (3.5-5.1) mmol/L Chloride (98-107) mmol/L Carbon Dioxide (21-32) mmol/L Anion Gap (3-11) BUN (7-18) mg/dl Creatinine (0.6-1.2) mg/dl Est Cr Clr Drug Dosing ml/min Est GFR ( Amer) Est GFR (Non-Af Amer) BUN/Creatinine Ratio (10-20) Glucose (70-99) mg/dl POC Glucose 95 113 H (70-99) mg/dl Calcium (8.5-10.1) mg/dl (1) Foot ulcer, right Non-pressure ulcer stage: unspecified non-pressure ulcer stage Qualified Code(s): L97.519 - Non-pressure chronic ulcer of other part of right foot with unspecified severity
[2020-05-18] MEDS: SIMVASTATIN 20 MG TAB PO SCH (21:02)
[2020-05-18] MEDS: lisinopriL 10 MG TAB PO SCH (21:02)
[2020-05-19] MEDS: LEVOTHYROXINE SODIUM 75 MCG TABLET PO SCH (05:30)
[2020-05-19 07:21] LABS: Nucleated RBC # (auto) 0.04 K/uL (0-0); Nucleated RBC % (auto) 0.8 %
[2020-05-19] MEDS: dilTIAZem HCL 240 MG CAPCR PO SCH (07:43)
[2020-05-19] MEDS: FUROSEMIDE 40 MG TAB PO SCH ×2 (07:44→20:57)
[2020-05-19] MEDS: APIXABAN 5 MG TABLET PO SCH ×2 (07:44→20:58)
[2020-05-19] MEDS: DOCUSATE SODIUM 100 MG CAP PO SCH ×2 (07:45→20:55)
[2020-05-19] MEDS: FAMOTIDINE 20 MG TAB PO SCH (07:45)
[2020-05-19] MEDS: TACROLIMUS 0.5 MG CAP PO SCH ×2 (07:45→20:58)
[2020-05-19] MEDS: METOPROLOL TARTRATE 25 MG TAB PO SCH ×2 (07:45→20:58)
[2020-05-19 07:46] LABS: Hematocrit (blood only) 25.5 % (37-47); Hemoglobin 8.4 g/dL (12.0-16.0); Mean Corpuscular Hemoglobin 32.6 pg (25-34); Mean Corpuscular Hgb Conc 32.9 g/dL (32-36); Mean Corpuscular Volume 98.8 fL (80-100); Platelet Count 80 K/uL (130-400); Platelet Estimate Decreased (Normal); RDW Standard Deviation 71.5 fL (36.4-46.3); Red Blood Count 2.58 M/uL (4.2-5.4); White Blood Count 5.33 K/uL (4.8-10.8)
[2020-05-19] MEDS: INSULIN GLARGINE SOLOSTAR 100 UNITS/ML 3 ML PEN SC SCH (07:46)
[2020-05-19 07:48] LABS: BUN Creatinine Ratio 33.3 (10-20); Calcium 8.4 mg/dl (8.5-10.1); Creatinine Clr Calc Pharmacy 43.5 ml/min; Est GFR (African American) 48.5; Est GFR (Non-African American) 41.8; Potassium 4.2 mmol/L (3.5-5.1)
[2020-05-19] MEDS: CEFAZOLIN 2000MG 2,000 MG/15 ML SYR IV SCH ×3 (07:48→23:50)
[2020-05-19] MEDS: INSULIN ASPART 100 UNITS/ML 3 ML PEN SC SCH ×4 (08:16→20:49)
--- NOTE | 2020-05-19 13:30 | Orthopedic Progress Note ---
Date of Service May 19, 2020 Assessment & Plan (1) Foot ulcer, right: POD #4 - s/p I & D right foot Continue IV antibiotics. Getting PICC placed today, recommend continuing IV antibiotics x 2-6 weeks Cultures show MSSA - antibiotics as per primary team Continue diet - no plans for more surgery. May be out of bed, weight bear as tolerated right heel with post op shoe on right foot with assistance of a walker Keep dressing on right foot, change/reinforce PRN. Dressing changed today. Elevate right foot as needed for swelling. Will follow while inpatient and will discuss today's findings with Dr. Toscano Call with questions or concerns. Okay for discharge from ortho standpoint when medically stable, would recommend discharge with home health for dressing changes to right foot. Follow up with Dr. Soares in 7-10 days as scheduled. Admission and Anticipated Discharge Date Admission Date: May 13, 2020 Subjective Sitting at bedside. Doing well, no complaints of pain in right foot. States it feels much better. Physical Exam Physical Exam: Right foot dressings removed, mild serousanguinous drainage on dressings. No active drainage today, nontender to palpation. Moves great toe actively and passively without pain. Nontender throughout right foot. Edema of right foot, ankle and lower leg. Mild erythema across dorsum of forefoot. No fluctuance. Nontender to palpation. Sutures retained in dorsal incision. Redressed with adaptic, 4x4, Arnold and LORRAINE bandage. Results & Data ([facility]) Vital Signs (Past 12 Hours) Vital Signs Temp Pulse Resp BP Pulse Ox 05/19/20 07:20 36.8 C 86 18 122/69 97 05/19/20 04:34 36.5 C 91 H 19 116/71 96 (1) Foot ulcer, right Non-pressure ulcer stage: unspecified non-pressure ulcer stage Qualified Code(s): L97.519 - Non-pressure chronic ulcer of other part of right foot with unspecified severity
--- NOTE | 2020-05-19 15:09 | Hospitalist Progress Note ---
Date of Service May 19, 2020 Assessment & Plan (1) Septic arthritis: Septic arthritis of right 1st MTP with MSSA. - S/p Right Foot, Great Toe Incision and Drainage with Dr. Soares on 05/15 - Will need IV abx x 4 weeks per UpToDate; ortho says 2-6 weeks. Will start with 4 weeks, and she will be seen in ortho clinic prior to finishing antibiotics. - Plan for ceftriaxone 2g IV daily (2) Atrial fibrillation with RVR: Likely secondary to dehydration and current active infection. Asymptomatic. With improvement in heart rate with diltiazem in emergency room. - Continue home diltiazem, metoprolol, and resume Eliquis. (3) Diabetes mellitus type II, controlled: A1c was 6.4% this admission. - Long-acting and sliding scale insulin (4) Hypothyroidism: TSH was 1.35 this admission. No signs/symptoms of hypo-/hyperthyroidism. - Continue home Synthroid 75 mcg (5) HTN (hypertension): BP was 125/70 this admission. - Continue home beta-soledad, calcium channel soledad, ACEi, and Lasix (6) Hypercholesteremia: - Continue statin (7) Thrombocytopenia: Likely from immunosuppression. 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 After final chemotherapy will have a kidney biopsy at [facility]. - Continue home tacrolimus. (9) DVT prophylaxis: Apixaban for afib Admission and Anticipated Discharge Date Admission Date: May 13, 2020 Subjective Feeling better today. Overall, she is slowly improving. Less right foot pain today. Reports no fevers/chills, chest pain, shortness of breath, abdominal pain, nausea, or vomiting. Physical Exam Constitutional: WD/WN, vitals as above Eyes: EOM intact bilaterally; no conjunctival abnormality ENMT: external ear and nose normal, oropharynx normal Neck: trachea midline, no thyromegaly normal visual inspection Respiratory: normal respiratory effort, lungs clear to auscultation no respiratory distress Cardiovascular: RRR, no murmur, no edema Gastrointestinal (Abdomen): Inspection/Auscultation: abdomen normal to inspection; abdomen not distended Musculoskeletal: no cyanosis or clubbing, extremities motor strength 5/5 (Right foot in bandage) Skin: no rashes, warm and dry Neurologic: moves all extremities and awake Psychiatric: Orientation: alert, oriented to person and cooperative Results & Data Results & Data ([facility]) Vital Signs (Past 12 Hours) Vital Signs Temp Pulse Resp BP Pulse Ox 05/19/20 07:20 36.8 C 86 18 122/69 97 05/19/20 04:34 36.5 C 91 H 19 116/71 96 PG Care Time/CCT Total # of Minutes Spent Total Time Spent with Patient: Total time spent is greater than 50% in coordination of care (as documented) at patient's floor/unit and/or counseling patient: Coding Level of Care Code 17636 Subseq Hosp Care Lvl 3 Diagnoses Septic arthritis M00.9 Atrial fibrillation with RVR I48.91 Diabetes mellitus type II, controlled E11.9 Hypothyroidism E03.9 HTN (hypertension) I10 Hypercholesteremia E78.00 Thrombocytopenia D69.6 History of renal transplant Z94.0 DVT prophylaxis Z29.9
[2020-05-19] MEDS: SIMVASTATIN 20 MG TAB PO SCH (20:56)
[2020-05-19] MEDS: lisinopriL 10 MG TAB PO SCH (20:57)
[2020-05-20] MEDS: LEVOTHYROXINE SODIUM 75 MCG TABLET PO SCH (05:56)
[2020-05-20 06:13] LABS: Mean Corpuscular Hgb Conc 32.8 g/dL (32-36); Nucleated RBC # (auto) 0.04 K/uL (0-0)
[2020-05-20 06:19] LABS: Hematocrit (blood only) 24.1 % (37-47); Hemoglobin 7.9 g/dL (12.0-16.0); Mean Corpuscular Hemoglobin 33.2 pg (25-34); Mean Corpuscular Volume 101.3 fL (80-100); RDW Standard Deviation 72.6 fL (36.4-46.3); Red Blood Count 2.38 M/uL (4.2-5.4); White Blood Count 4.12 K/uL (4.8-10.8)
[2020-05-20 06:43] LABS: Platelet Count 102 K/uL (130-400)
[2020-05-20 06:44] LABS: Platelet Estimate Decreased (Normal)
[2020-05-20 06:46] LABS: BUN Creatinine Ratio 33.8 (10-20); Calcium 8.5 mg/dl (8.5-10.1); Creatinine Clr Calc Pharmacy 44.1 ml/min; Est GFR (African American) 48.9; Est GFR (Non-African American) 42.2; Magnesium 1.6 mg/dl (1.8-2.4); Phosphorus 2.3 mg/dl (2.5-4.9)
[2020-05-20] MEDS: dilTIAZem HCL 240 MG CAPCR PO SCH (09:13)
[2020-05-20] MEDS: DOCUSATE SODIUM 100 MG CAP PO SCH (09:13)
[2020-05-20] MEDS: APIXABAN 5 MG TABLET PO SCH (09:14)
[2020-05-20] MEDS: FUROSEMIDE 40 MG TAB PO SCH (09:14)
[2020-05-20] MEDS: METOPROLOL TARTRATE 25 MG TAB PO SCH (09:14)
[2020-05-20] MEDS: TACROLIMUS 0.5 MG CAP PO SCH (09:15)
[2020-05-20] MEDS: FAMOTIDINE 20 MG TAB PO SCH (09:15)
[2020-05-20] MEDS: INSULIN GLARGINE SOLOSTAR 100 UNITS/ML 3 ML PEN SC SCH (09:17)
[2020-05-20] MEDS: INSULIN ASPART 100 UNITS/ML 3 ML PEN SC SCH ×3 (09:18→17:54)
[2020-05-20] MEDS: CEFAZOLIN 2000MG 2,000 MG/15 ML SYR IV SCH (09:21)
--- NOTE | 2020-05-20 10:13 | Orthopedic Progress Note ---
Date of Service May 20, 2020 Assessment & Plan (1) Foot ulcer, right: POD #5 - s/p I & D right foot Continue IV antibiotics. Picc placed yesterday, functioning Cultures show MSSA - antibiotics as per primary team Continue diet - no plans for more surgery. May be out of bed, weight bear as tolerated right heel with post op shoe on right foot with assistance of a walker Keep dressing on right foot, change/reinforce PRN. Wound care to see today for recommendations. Elevate right foot as needed for swelling. Will follow while inpatient and will discuss today's findings with Dr. Toscano Call with questions or concerns. Okay for discharge from ortho standpoint when medically stable, would recommend discharge with home health for dressing changes to right foot vs inpatient rehab if needed. Follow up with Dr. Soares in 7-10 days as scheduled. Admission and Anticipated Discharge Date Admission Date: May 13, 2020 Subjective doing well, no complaints of pain right foot. Getting bathed this morning. Physical Exam Physical Exam: Right foot dressings intact. Moves toes well, nontender to palpation. Dressing not changed today. Post op shoe in place. Results & Data ([facility]) Vital Signs (Past 12 Hours) Vital Signs Temp Pulse Resp BP Pulse Ox 05/20/20 09:12 89 106/62 05/20/20 07:17 36.5 C 84 15 113/64 97 05/19/20 23:08 36.7 C 86 16 105/61 99 Laboratory Results 05/20/20 05/20/20 05/20/20 Range/Units 08:20 05:46 05:46 WBC 4.12 L (4.8-10.8) K/uL RBC 2.38 L (4.2-5.4) M/uL Hgb 7.9 L (12.0-16.0) g/dL Hct 24.1 L (37-47) % MCV 101.3 H (80-100) fL MCH 33.2 (25-34) pg MCHC 32.8 (32-36) g/dL RDW Std Deviation 72.6 H (36.4-46.3) fL RDW Coeff of Lidya 20.0 H (11.5-14.5) % Plt Count 102 L (130-400) K/uL Absolute Nucleated RBC 0.04 H (0-0) K/uL Nucleated RBC % (auto) 1.0 % Platelet Estimate Decreased L (Normal) Sodium 142 (136-145) mmol/L Potassium 4.0 (3.5-5.1) mmol/L Chloride 112 H (98-107) mmol/L Carbon Dioxide 24 (21-32) mmol/L Anion Gap 6.0 (3-11) BUN 43 H (7-18) mg/dl Creatinine 1.26 H (0.6-1.2) mg/dl Est Cr Clr Drug Dosing 44.1 ml/min Est GFR ( Amer) 48.9 Est GFR (Non-Af Amer) 42.2 BUN/Creatinine Ratio 33.8 H (10-20) Glucose 107 H (70-99) mg/dl POC Glucose 132 H (70-99) mg/dl Calcium 8.5 (8.5-10.1) mg/dl Phosphorus 2.3 L (2.5-4.9) mg/dl Magnesium 1.6 L (1.8-2.4) mg/dl 05/19/20 05/19/20 05/19/20 Range/Units 20:18 16:40 11:39 WBC (4.8-10.8) K/uL RBC (4.2-5.4) M/uL Hgb (12.0-16.0) g/dL Hct (37-47) % MCV (80-100) fL MCH (25-34) pg MCHC (32-36) g/dL RDW Std Deviation (36.4-46.3) fL RDW Coeff of Lidya (11.5-14.5) % Plt Count (130-400) K/uL Absolute Nucleated RBC (0-0) K/uL Nucleated RBC % (auto) % Platelet Estimate (Normal) Sodium (136-145) mmol/L Potassium (3.5-5.1) mmol/L Chloride (98-107) mmol/L Carbon Dioxide (21-32) mmol/L Anion Gap (3-11) BUN (7-18) mg/dl Creatinine (0.6-1.2) mg/dl Est Cr Clr Drug Dosing ml/min Est GFR ( Amer) Est GFR (Non-Af Amer) BUN/Creatinine Ratio (10-20) Glucose (70-99) mg/dl POC Glucose 100 H 106 H 107 H (70-99) mg/dl Calcium (8.5-10.1) mg/dl Phosphorus (2.5-4.9) mg/dl Magnesium (1.8-2.4) mg/dl Microbiology 05/15/20 17:08 Gram Stain - Final Foot,Right Aerobic and Anaerobic Culture - Final Staphylococcus aureus 05/14/20 17:00 Gram Stain - Final Foot,Right Aerobic and Anaerobic Culture - Final Staphylococcus aureus 05/13/20 20:04 Aerobic Blood Culture - Final Blood Staphylococcus aureus Anaerobic Blood Culture - Final 05/13/20 20:04 Aerobic Blood Culture - Final Blood Staphylococcus aureus Anaerobic Blood Culture - Final (1) Foot ulcer, right Non-pressure ulcer stage: unspecified non-pressure ulcer stage Qualified Code(s): L97.519 - Non-pressure chronic ulcer of other part of right foot with unspecified severity
[2020-05-20] MEDS ORDERED: EPOETIN ALFA 4,000 UNIT/ML VIAL SQ STA (11:16)
[2020-05-20] MEDS ORDERED: SODIUM CHLORIDE 0.9% 250 ML IV PRN (11:16)
[2020-05-20] MEDS ORDERED: cefTRIAXone SODIUM 2,000 MG in DEXTROSE 5% 50 ML IV STA (13:16)
--- NOTE | 2020-05-20 15:58 | Discharge Summary ---
Date of Service May 20, 2020 Admission HPI Per Admitting Provider 74-year-old female past medical history type 2 diabetes on insulin therapy, gout, polycystic kidney disease, hypothyroidism, hypertension, history of renal transplant on tacrolimus, paroxysmal A. fib presented to the emergency room for right toe pain. When EMS arrived to her home she was found to be in A. fib with RVR, was given diltiazem 5 mg IV without resolution. At that time did not have any palpitations, shortness of breath, chest pain, dizziness. Was only complaining of foot pain. On arrival to ED was still in A. fib with RVR. In ER CBC was performed which showed no leukocytosis, platelets 59, elevated ESR to 76, CRP 14.60, UA with nitrites bacteria leuk esterase but was a dirty catch. Given one-time dose Vanco and Zosyn, 500 cc normal saline solution. Hospital team was consulted for admission. On my interview patient's only complaint continues to be right foot pain, no pain when lying down but reports "excruciating pain when standing and walking". Has been dealing with this pain for several weeks but has been worsening over the last week into today. About 2 days ago noticed a wound on the bottom of her right foot which she started putting a Band-Aid and ointment on without relief. No fevers or chills, no nausea or vomiting, no diarrhea or constipation, no dysuria hematuria urinary urgency or frequency. During my interview patient was administered 20 mg diltiazem IV with decrease in heart rate from 130s to 90s to low 100s. Has a history of gout for which he takes allopurinol twice daily. For the last 2 days has not been eating or drinking well, has been spending a lot of time in bed. Principal Diagnosis Right first MTP septic arthritis with bacteremia Discharge Exam Constitutional WD/WN, vitals as above Eyes EOM intact bilaterally; no conjunctival abnormality ENMT external ear and nose normal, oropharynx normal Neck trachea midline, no thyromegaly normal visual inspection Respiratory normal respiratory effort, lungs clear to auscultation no respiratory distress Cardiovascular RRR, no murmur, no edema Gastrointestinal (Abdomen) Inspection/Auscultation: abdomen normal to inspection; abdomen not distended Musculoskeletal no cyanosis or clubbing, extremities motor strength 5/5 (Right foot in bandage) Skin no rashes, warm and dry Neurologic moves all extremities and awake Psychiatric Orientation: alert, oriented to person and cooperative Discharge Data Allergies Allergy/AdvReac Type Severity Reaction Status Date / Time adhesive Allergy Intermediate ERYTHEMA Verified 05/13/20 19:20 WITH ADHESIVE TAPE, blisters No Known Drug Allergies Allergy Unknown nkda Verified 05/13/20 19:20 Consultations 05/13/20 20:32 ED Decision to Admit Stat 05/14/20 00:27 Consult Case Management - Discharge Planning Routine 05/14/20 16:05 Consult Orthopedic Surgery Routine 05/15/20 18:08 Consult Case Management - Discharge Planning Routine Procedures Performed Operation Date: 05/15/20 07:00 Actual Procedures p Right Foot, Great Toe Incision and Drainage(Right) - Jovon Soares MD Ordered Studies 05/14/20 16:02 MR foot RT w/o con Routine Hospital Course (1) Septic arthritis: Septic arthritis of right 1st MTP with MSSA. - S/p Right Foot, Great Toe Incision and Drainage with Dr. Soares on 05/15 - Will need IV abx x 4 weeks per UpToDate; ortho says 2-6 weeks. Will start with 4 weeks, and she will be seen in ortho clinic prior to finishing antibiotics. - Plan for ceftriaxone 2g IV daily -> Arranged for home delivery on 05/21. - Will need weekly CBC, CMP while on ceftriaxone. As we no longer have ID, will send results to PCP who also manages her kidney transplant. (2) Atrial fibrillation with RVR: Likely secondary to dehydration and current active infection. Asymptomatic. With improvement in heart rate with diltiazem in emergency room. - Continue home diltiazem, metoprolol, and resume Eliquis. (3) Diabetes mellitus type II, controlled: A1c was 6.4% this admission. - Long-acting and sliding scale insulin -> Sugars stable inpatient; continued home reigmen on discharge. (4) Hypothyroidism: TSH was 1.35 this admission. No signs/symptoms of hypo-/hyperthyroidism. - Continue home Synthroid 75 mcg (5) HTN (hypertension): BP was 125/70 this admission. - Continue home beta-soledad, calcium channel soledad, ACEi, and Lasix (6) Hypercholesteremia: - Continue statin (7) Thrombocytopenia: Likely from immunosuppression. 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 After final chemotherapy will have a kidney biopsy at [facility]. - Continue home tacrolimus. - Received 1 unit PRBCs and 4,000 units of Procrit on 05/20 for hgb of 7.9. Not felt to be due to bleeding, but more chemotherapy and kidney transplant. (9) DVT prophylaxis: Apixaban for afib Total Time Total Time Spent Total Time Spent (In Minutes): 35 Discharge Plan Discharge Items Patient Disposition: Home - Home Health Services Reason For Visit: GOUT ATTACK, CELLULITIS, AFIB WITH RVR Discharge Diagnosis: Septic arthritis (infection in the toe joint) Activity: Resume your previous activity Non-emergency contact: Surgeon Call non-emergency contact if: your symptoms worsen, your pain is not controlled, your pain is concerning for you, your rectal temperature is above 100.4, your wound has increased redness, your wound has increased drainage and your wound pain has increased Follow-up/Referrals: Hamlet Isidro MD [Primary Care Provider] - 05/27/20 1:00 pm () Jovon Soares MD [Surgeon] - 05/27/20 3:15 pm (in 7-10 days) Diet: Dialysis Renal and Heart Healthy Addtl Attending Provider Instructions: You were admitted to the hospital with pain in the right toe. The orthopedic doctors washed out the joint of the toe. We also found bacteria in the blood stream and in the toe, and we are giving you IV antibiotics for at least 4 weeks to be sure it is entirely out of your system. The [facility] should bring it tomorrow for your first infusion, then you can work with them to either give it yourself or have them continue to come. They will also help with your wound care. Please follow up with Dr. Isidro in 1 week to be sure you are doing well. You will need weekly blood work while on the antibiotics to be sure your kidneys, liver, and bone marrow are doing ok. Please call Dr. Isidro right away with any further fevers, worsening pain or redness, nausea, vomiting, or other concerning symptoms. Addtl Nuclear Physicist Provider Instructions: Elevate right foot frequently throughout the day Keep dressings on right foot at all times, may remove and change dressing every few days if needed or as instructed by nursing. Wear post op shoe when out of bed, may remove when in bed or at rest. Work on range of motion right knee, ankle, and toes You may weight bear as tolerated on right heel with post op shoe on right foot. Use walker to assist with ambulation. Follow up with Dr. Soares in 1 week, call [phone] for an appointment if you do not already have one. Pending Studies at Discharge: No Stand-Alone Forms: My [facility], Smoking Cessation Medications and DC Order Prescriptions: New ceftriaxone 2 gram recon soln 2 gm IV DAILY Qty: 1 RF: 0 Continued multivitamin Tablet 1 tab PO QAM Qty: 0 RF: 0 omega [id number]-fish oil [Fish Oil] 1,000 mg (120 mg-180 mg) Capsule 2,000 mg PO BID Qty: 0 RF: 0 folic acid 1 mg Tablet 1 mg PO QAM Qty: 0 RF: 0 simvastatin 20 mg Tablet 20 mg PO HS Qty: 0 RF: 0 lutein 20 mg Capsule 20 mg PO QAM Qty: 0 RF: 0 furosemide 40 mg Tablet 40 mg PO BID Qty: 0 RF: 0 calcium carbonate-vitamin D3 [Caltrate with Vitamin D3] 600 mg(1,500mg) -800 unit tablet 1 tab PO QAM Qty: 0 RF: 0 (DME) pen needle, diabetic [BD Ultra-Fine Germania Pen Needle] 32 gauge x 5/32" needle See Dose Instructions .ROUTE .MEDSUPPLY Qty: 200 RF: 5 zoledronic [id number] [Reclast] 5 mg/100 mL piggyback 5 mg IV YEARLY Qty: 0 RF: 0 Lantus Solostar U-100 Insulin 100 unit/mL (3 mL) insulin pen 5 unit SUBCUT QAM Qty: 15 RF: 3 metoprolol tartrate 25 mg tablet 25 mg PO BID 90 Days Qty: 180 RF: 1 diltiazem HCl [Cartia XT] 240 mg capsule,extended release 24hr 240 mg PO QAM Qty: 90 RF: 3 (DME) OneTouch Ultra Blue Test Strip Strip See Dose Instructions .ROUTE .MEDSUPPLY Qty: 100 RF: 1 lisinopril 10 mg tablet 10 mg PO HS Qty: 90 RF: 1 levothyroxine 75 mcg tablet 75 mcg PO DAILY Qty: 90 RF: 3 magnesium oxide 400 mg (241.3 mg magnesium) tablet 400 mg PO BID Qty: 180 RF: 3 allopurinol 300 mg tablet See Rx Instructions .ROUTE .COMPLEX Qty: 180 RF: 0 tacrolimus 0.5 mg capsule 0.5 mg PO BID RF: 0 prochlorperazine maleate [Compazine] 10 mg tablet 10 mg PO Q6H PRN (Reason: Nausea) RF: 0 Eliquis 5 mg tablet 5 mg PO BID Qty: 180 RF: 1 insulin aspart U-100 100 unit/mL (3 mL) insulin pen 1 unit subcut AC RF: 0 (DME) lancets [OneTouch Delica Plus Lancet] 33 gauge misc See Dose Instructions .ROUTE .MEDSUPPLY Qty: 100 RF: 0 cyanocobalamin (vitamin B-12) 1,000 mcg capsule 1,000 mcg PO DAILY Qty: 90 RF: 3 famotidine 20 mg Tablet 20 mg PO DAILY RF: 0 Ocuvite Adult 50 Plus 250-5-1 mg Capsule 1 cap PO BID RF: 0 Discharge Orders: Discharge Order (Routine); Ordered 05/20/20 Ordered By: Diaz Waters Admission Data Admit Date/Time: 05/13/20 22:13 Attending Provider: Diaz Waters Admit Provider: Domonique Espana Primary Care Provider: Hamlet Isidro Other Providers: [facility] ; [facility] ; Jovon Soares ; Diaz Waters ; [facility] Coding Level of Care Code D/C Day Management >30 mins Diagnoses Septic arthritis M00.9 Atrial fibrillation with RVR I48.91 Diabetes mellitus type II, controlled E11.9 Hypothyroidism E03.9 HTN (hypertension) I10 Hypercholesteremia E78.00 Thrombocytopenia D69.6 History of renal transplant Z94.0 DVT prophylaxis Z29.9
--- NOTE | 2020-05-21 11:45 | Operative Report ---
Post Operative Report Pre & Post Diagnosis Operation Date: 05/15/20 07:00 Pre-Op Diagnosis: Septic Arthritis of the Metarsalphalango Joint, Right Big Toe Post-Op Diagnosis: Septic Arthritis of the Metarsalphalango Joint, Right Big Toe I identified the patient and participated in the time-out.: Yes Procedure Operation Date: 05/15/20 07:00 Actual Procedures p Right Foot, Great Toe Incision and Drainage(Right) - Jovon Soares MD Surgeon Jovon Soares MD [employer] Alda Young PA-C. No fellow or resident available. Estimated Blood Loss 5 Findings Consistent with Post-Op Diagnosis Specimens Wound cultures, soft tissue Anesthesia Type MAC Regional Complications none Description of Procedure Patient was taken to the operating room, placed under IV sedation and given digital block. Her antibiotics were helped due to obtaining intra-operative cultures. Time out performed, prepped and draped in routine sterile fashion. I was present during the entire case and assisted with positioning, draping, exposure by retracting soft tissues, irrigation, debridement, closure and dressings. Please see Dr. Soares's operative report for further detail. patient was awakened and taken to the recovery room in stable condition. I attest to the content of the Intraoperative Record and any orders documented therein. Any exceptions are noted below.
--- NOTE | 2020-05-22 11:17 | Coding Query ---
DEBRIDEMENT DOCUMENTATION To promote full compliance with coding requirements relating to patient care, physician participation is requested in all cases of reports analyst uncertainty. Please assist us with the question(s) below: REGARDING THE DEBRIDEMENT ON 05/15/[address] an X in the parenthesis (x). If other, please document the finding: Type of Debridement: ( ) Excisional Debridement- Cutting away necrotic, devitalized tissue or slough to the level of viable tissue using a sharp instrument (i.e. scalpel, scissors, etc.) ( X) Non Excisional Debridement- The removal of necrotic, devitalized tissue or slough by means of scraping, mechanical brushing, flushing, or washing (i.e. irrigation,whirlpool);minor removal of loose fragments. ( ) Other (please specify): Instrument Used: (X ) Scissors (X ) Scalpel ( ) Curette ( ) Other (please specify): Depth of Debridement: (X ) Skin ( ) Skin and Subcutaneous Tissue ( ) Skin, Subcutaneous Tissue and Muscle ( ) Skin, Subcutaneous Tissue, Muscle and Bone (x ) Other (please specify):__irrigation of joint and abcess Thank you Carley ORTA
--- NOTE | 2020-05-22 11:19 | Coding Query ---
PRESENT ON ADMISSION QUERY To promote full compliance with coding requirements relating to pateint care, physician participation is requested in all cases of training and development head uncertainty. Please assist us with the question(s) below: Please place an X within the parenthesis (x). The following diagnosis(es) listed in this patient's medical record require physician assistance to determine if they were present on admission (POA) or not. Please advise for each diagnosis whether it was present on admission, not present on admission, or if it was clinically undetermined. 1. SEPSIS DUE TO METHICILLIN SUSCEPTIBLE STAPHYLOCOCCUS AUREUS (documented on Discharge Summary) ( x ) Present On Admission ( ) Not Present On Admission ( ) Clinically Undetermined 2. ANTINEOPLASTIC CHEMOTHERAPY INDUCED PANCYTOPENIA (documented on Discharge Summary) (x ) Present On Admission ( ) Not Present On Admission ( ) Clinically Undetermined Thank you Carley Nova *Definition of the present on admission (POA)-Present on admission is defined as present at the time the order for inpatient admission occurs. Conditions that develop during an outpatient encounter prior to a written order for inpatient admission (including emergency department, observation, or outpatient surgery) are considered present on admission. MTDD
== END 2020-05-20 19:29 | disposition home health service (06) | DRG 871 ==
LOC: ED 18:41 → SUATTDRO 22:13 → 2S 22:13 → 2N 05-16 14:34 → 3N 05-19 21:38

== ENCOUNTER 2022-03-11 19:13 | Inpatient (IN) ==
--- NOTE | 2022-03-11 19:23 | Emergency Department Note ---
Impression & Plan Acute exacerbation of CHF (congestive heart failure), Kidney transplant recipient, Atrial fibrillation with rapid ventricular response, Fever, Acute respiratory distress ED Provider Note NAME: ROXANNE CHANDLER AGE: 76 SEX: F : 1945 ARRIVES VIA: Ambulance INFORMANT: Patient, ED PROVIDER(S): Elias Obando MD Chief Complaint: Cough, fever, leg swelling HPI: Patient presents with daughter bedside due to concern for fever and cough with associated leg swelling. The patient's had symptoms for approximately week in duration. They have gotten progressively worse. Patient states that the cough is not necessarily productive. The patient has had increasing weight gain and lower extremity swelling. The patient has been compliant with her medications. Patient does take immunosuppressive drugs that she has a known history of a prior kidney transplant. Patient has felt feverish at home and has had temperatures intermittently throughout the week. Patient denies any abdominal pain nausea vomiting. Patient denies any diarrhea. Patient states that her leg swelling is been symmetric in nature. T-max on presentation was 100.3. Patient does follow with Dr. Collins with nephrology. Patient states that her urine output has been appropriate she does take a diuretic. ROS: See HPI for pertinent positives and negatives. A total of 10 systems were reviewed and otherwise negative. Past medical history: See below Surgical history: See below Social history: See below Physical Exam: GENERAL: Mildly ill in appearance, NAD, wearing glasses, wearing a mask. EYE EXAM: Normal conjunctiva. PERRL, no anisocoria and EOM's grossly intact w/o pain. NECK: Supple, no nuchal rigidity, no adenopathy, non-tender. No signs of meningismus. FROM of the neck with good chin to chest and neck extension. No stridor. LUNGS: Scant wheezing throughout, mild tachypnea. HEART: Tachycardic and irregular, no MRG. ABDOMEN: Abdomen soft, non-tender, right-sided abdominal hernia, normo-active bowel sounds, no masses, no rebound or guarding. BACK: No CVA TTP. SKIN: No rashes and no bruising. UPPER EXTREMITIES: Upper extremities are grossly normal. LOWER EXTREMITIES: Grossly normal, 2-3+ symmetric lower extremity edema, compartments are soft and neurovascular intact distally. NEURO EXAM: A&O x3, cranial nerves II-XII grossly intact, normal speech, moves all 4 extremities on command w/o issue. Differential diagnoses: Sepsis, UTI, pneumonia, metabolic, electrolyte abnormalities, cardiac sources, intracerebral event, toxicologic, neurologic, as well as other pathologies. Course: Patient was seen and evaluated the bedside. Full history physical exam was performed. EKG interpreted by me Andrea bowers with RVR, rate of 123, normal QRS, normal axis, no obvious ST elevations. No significant change from comparison EKG April. Imaging Studies: See Below Cardiac monitoring: An order was placed for continuous cardiac monitoring. The monitor shows a rate of 122 with tachycardic and irregularly irregular rhythm. MDM: Patient was seen due to concern for shortness of breath leg swelling cough and fever. Blood work was obtained. I did place the patient on BiPAP the patient did have some respiratory distress. Was obtained and the patient was covered with broad-spectrum antibiotics. The patient did have IV fluids held as I believe that she was likely volume overloaded. The patient does have a weight gain of approximately 5 kg from her last visit. Patient's blood work shows a normal white counts with virtually normal hemoglobin at 11.5. Patient's platelet count is slightly low at 128. Patient's kidney function with a creat of 1.3 and mild hyponatremia 132. Calcium slightly low at 8.3. This was ordered for replacement. Initial high-sensitivity troponin is elevated at 61. Covid flu and RSV negative. Patient's procalcitonin is not elevated. Lactate is normal. Chest x-ray does show likely volume overload. The patient had received Lasix IV at the time that she was placed on BiPAP. Patient's respiratory distress had improved on the BiPAP and with the IV Lasix. I did speak with the on-call hospitalist Dr. Sanchez who and the patient was admitted to the medicine service. Critical Care: I have personally spent 55 minutes of critical care time in direct management of this patient. This includes bedside care, interpretation of diagnostic studies, and testing, discussion with consultants, patient, and family members, and other require inpatient management activities. This 55 minutes is in excess of all separately billable procedures. Past Med/Surg History Medical History Atrial fibrillation DX 2014 > NO CARDIOVERSIONS Atrial fibrillation with RVR Bilateral leg edema Diabetic peripheral neuropathy associated with type 2 diabetes mellitus Gastric ulcer RESOLVED History of dysplastic nevus HTN (hypertension) Hypercholesteremia Hyperparathyroidism Hypothyroidism Long-term current use of tacrolimus Macular degeneration BILAT Mitral regurgitation Osteoporosis Paroxysmal atrial fibrillation Personal history of diabetic foot ulcer Polycystic kidney disease HX > DR. ROCK > NANCY HANDY > 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 History of tonsillectomy Hx of cholecystectomy Kidney transplant recipient RIGHT > 1995 Family History Mother Diabetes Father Kidney disease Hypertension Son Kidney disease Sister Kidney disease Social History Smoking Status: Never smoker Tobacco Type: Cigarettes Second Hand Exposure: No; Hx Alcohol Use: No Hx Substance Use: No Preferred Language: Amharic Communication Ability: Effective Visual Impairment: No Limitations Supervisor Paste Mixing Required: No Beliefs That Will Affect Care: None Current Living Situation: Spouse and Family current occupational status: retired Feels Safe at Home: Yes Assistive Devices: Walker Allergies Allergies Allergy/AdvReac Type Severity Reaction Status Date / Time adhesive Allergy Intermediate ERYTHEMA Verified 03/11/22 19:50 WITH ADHESIVE TAPE, blisters Home Meds Home Medications Medication Instructions Recorded Confirmed multivitamin 1 tab PO QAM #0 05/23/06 03/11/22 omega 8-ydf-nwo-fish oil 1,000 mg 1,000 mg PO BID #0 10/30/10 03/11/22 (120 mg-180 mg) capsule (Fish Oil) folic acid 1 mg tablet 1 mg PO QAM #0 05/07/12 03/11/22 lutein 20 mg capsule 20 mg PO QPM #0 11/11/14 03/11/22 lancets 33 gauge (OneTouch Delheather #100 ea 06/15/19 02/02/22 Plus Lancet) tacrolimus 0.5 mg capsule, 0.5 mg PO Q12 cap 08/28/19 03/11/22 immediate-release vit C,E,zinc,copper-mzcqi0x 250 1 cap PO BID 05/13/20 03/11/22 mg-lutein 5 mg-zeaxanthin 1 mg capsule (Ocuvite Adult 50 Plus) mycophenolate mofetil 250 mg 250 mg PO Q12 cap 10/15/20 03/11/22 capsule furosemide 40 mg tablet 40 mg PO BID tab 07/30/21 03/11/22 allopurinol 300 mg tablet 300 mg PO UD 03/11/22 03/11/22 levothyroxine 75 mcg tablet 75 mcg PO DAILYBB 03/11/22 03/11/22 lisinopril 10 mg tablet 10 mg PO HS 03/11/22 03/11/22 Previous Rx's Medication Instructions Recorded blood sugar diagnostic (OneTouch #100 ea 12/21/19 Ultra Blue Test Strip) magnesium oxide 400 mg (241.3 mg 400 mg PO BID #180 tab 02/11/21 magnesium) tablet insulin glargine 100 unit/mL (3 5 unit SUBCUT QAM #15 ml 03/13/21 mL) subcutaneous pen (Lantus Solostar U-100 Insulin) simvastatin 20 mg tablet 20 mg PO HS #90 tab 06/29/21 apixaban 5 mg tablet (Eliquis) 5 mg PO BID #180 tab 07/27/21 zoledronic acid 5 mg/100 mL in 5 mg IV YEARLY #100 ml 07/30/21 mannitol 5 %-water intravenous piggybck (Reclast) metoprolol tartrate 25 mg tablet 37.5 mg PO BID 90 Days #270 tab 09/07/21 diltiazem HCl 240 mg 240 mg PO QAM #90 cap 11/25/21 capsule,extended release 24 hr (Cartia XT) famotidine 20 mg tablet 20 mg PO BID #60 tab 01/12/22 Results & Data (ED) Vital Signs Vital Signs - 24 hr 03/11/22 19:21 03/11/22 19:51 03/11/22 19:53 Temperature 37.9 C H Temperature Source Oral Pulse Rate 124 H 129 H Pulse Rate [Right Finger] 128 H 129 H 129 H Pulse Rhythm Irregular Irregular Pulse Rhythm [Right Finger] Irregular Irregular Irregular Pulse Strength Normal Pulse Strength [Right Finger] Normal Normal Normal Respiratory Rate 28 H 27 H 26 H Respiratory Effort / Characteristics Non-Labored Spontaneous Non-Labored Spontaneous Non-Labored Spontaneous Respiratory Depth Deep Deep Normal Respiratory Pattern Regular Regular Blood Pressure 134/77 Blood Pressure [Right Arm] 134/77 Blood Pressure Mean 96 Blood Pressure Mean [Right Arm] 96 Blood Pressure Position Lying Blood Pressure Position [Right Arm] Lying Pulse Oximetry 92 91 92 Oxygen Delivery Method Room Air Room Air Room Air Fraction of Inspired Oxygen Sepsis Recent Fever Within 48 Hours Yes Sepsis New/Unexplained Change in Mental Status No Sepsis Action Taken by Nursing No Action Required 03/11/22 19:54 03/11/22 19:57 03/11/22 20:08 Temperature Temperature Source Pulse Rate 128 H Pulse Rate [Right Finger] 130 H Pulse Rhythm Pulse Rhythm [Right Finger] Irregular Pulse Strength Pulse Strength [Right Finger] Normal Respiratory Rate 29 H 24 22 Respiratory Effort / Characteristics Spontaneous Short of Breath Spontaneous Non-Labored Spontaneous Respiratory Depth Shallow Normal Respiratory Pattern Tachypnea Blood Pressure Blood Pressure [Right Arm] Blood Pressure Mean Blood Pressure Mean [Right Arm] Blood Pressure Position Blood Pressure Position [Right Arm] Pulse Oximetry 96 94 96 Oxygen Delivery Method CPAP BiPAP Fraction of Inspired Oxygen 24 Sepsis Recent Fever Within 48 Hours Sepsis New/Unexplained Change in Mental Status Sepsis Action Taken by Nursing 03/11/22 20:16 03/11/22 20:30 03/11/22 20:45 Temperature Temperature Source Pulse Rate Pulse Rate [Right Finger] 129 H 113 H 113 H Pulse Rhythm Pulse Rhythm [Right Finger] Irregular Irregular Irregular Pulse Strength Pulse Strength [Right Finger] Normal Normal Normal Respiratory Rate 21 21 21 Respiratory Effort / Characteristics Non-Labored Spontaneous Non-Labored Spontaneous Non-Labored Spontaneous Respiratory Depth Normal Normal Normal Respiratory Pattern Blood Pressure Blood Pressure [Right Arm] Blood Pressure Mean Blood Pressure Mean [Right Arm] Blood Pressure Position Blood Pressure Position [Right Arm] Pulse Oximetry 96 94 95 Oxygen Delivery Method BiPAP BiPAP BiPAP Fraction of Inspired Oxygen Sepsis Recent Fever Within 48 Hours Sepsis New/Unexplained Change in Mental Status Sepsis Action Taken by Nursing 03/11/22 21:00 03/11/22 21:15 03/11/22 21:30 Temperature Temperature Source Pulse Rate Pulse Rate [Right Finger] 117 H 113 H 104 H Pulse Rhythm Pulse Rhythm [Right Finger] Irregular Irregular Irregular Pulse Strength Pulse Strength [Right Finger] Normal Normal Normal Respiratory Rate 21 22 21 Respiratory Effort / Characteristics Non-Labored Spontaneous Non-Labored Spontaneous Non-Labored Spontaneous Respiratory Depth Normal Normal Normal Respiratory Pattern Blood Pressure Blood Pressure [Right Arm] Blood Pressure Mean Blood Pressure Mean [Right Arm] Blood Pressure Position Blood Pressure Position [Right Arm] Pulse Oximetry 95 94 94 Oxygen Delivery Method BiPAP BiPAP BiPAP Fraction of Inspired Oxygen Sepsis Recent Fever Within 48 Hours Sepsis New/Unexplained Change in Mental Status Sepsis Action Taken by Nursing 03/11/22 22:00 03/11/22 22:30 03/11/22 22:38 Temperature Temperature Source Pulse Rate 112 H Pulse Rate [Right Finger] 104 H 110 H Pulse Rhythm Pulse Rhythm [Right Finger] Irregular Irregular Pulse Strength Pulse Strength [Right Finger] Normal Normal Respiratory Rate 21 21 28 H Respiratory Effort / Characteristics Non-Labored Spontaneous Non-Labored Spontaneous Non-Labored Spontaneous Respiratory Depth Normal Normal Normal Respiratory Pattern Regular Blood Pressure Blood Pressure [Right Arm] Blood Pressure Mean Blood Pressure Mean [Right Arm] Blood Pressure Position Blood Pressure Position [Right Arm] Pulse Oximetry 95 92 94 Oxygen Delivery Method BiPAP BiPAP Fraction of Inspired Oxygen 24 Sepsis Recent Fever Within 48 Hours Sepsis New/Unexplained Change in Mental Status Sepsis Action Taken by Nursing 03/11/22 22:45 Temperature Temperature Source Pulse Rate Pulse Rate [Right Finger] 113 H Pulse Rhythm Pulse Rhythm [Right Finger] Irregular Pulse Strength Pulse Strength [Right Finger] Normal Respiratory Rate 18 Respiratory Effort / Characteristics Non-Labored Spontaneous Respiratory Depth Normal Respiratory Pattern Blood Pressure Blood Pressure [Right Arm] Blood Pressure Mean Blood Pressure Mean [Right Arm] Blood Pressure Position Blood Pressure Position [Right Arm] Pulse Oximetry 97 Oxygen Delivery Method BiPAP Fraction of Inspired Oxygen Sepsis Recent Fever Within 48 Hours Sepsis New/Unexplained Change in Mental Status Sepsis Action Taken by Skilled Nursing Medications Current Medication List: was personally reviewed by me Laboratory Data Attestation: I reviewed the patient's lab results. Result diagrams: 03/11/22 19:40 03/11/22 19:40 Lab Results 03/11/22 03/11/22 03/11/22 Range/Units 19:40 19:40 19:40 WBC 5.69 (4.8-10.8) K/uL RBC 3.58 L (4.2-5.4) M/uL Hgb 11.5 L (12.0-16.0) g/dL Hct 34.4 L (37-47) % MCV 96.1 (80-100) fL MCH 32.1 (25-34) pg MCHC 33.4 (32-36) g/dL RDW Std Deviation 62.1 H (36.4-46.3) fL RDW Coeff of Lidya 17.6 H (11.5-14.5) % Plt Count 128 L (130-400) K/uL MPV 12.4 H (7.4-10.4) fL Immature Gran % (Auto) 0.2 % Neut % (Auto) 81.1 % Lymph % (Auto) 12.1 % Oliver % (Auto) 6.2 % Eos % (Auto) 0.0 % Baso % (Auto) 0.4 % Neut # (Auto) 4.62 (1.4-6.5) K/uL Lymph # (Auto) 0.69 L (1.2-3.4) K/uL Oliver # (Auto) 0.35 (0.11-0.59) K/uL Eos # (Auto) 0.00 (0-0.5) K/uL Baso # (Auto) 0.02 (0-0.2) K/uL Immature Gran # (Auto) 0.01 (0.00-0.02) K/uL Platelet Estimate Decreased L (Normal) Polychromasia 1+ Poikilocytosis Present PT 14.2 H (9.0-12.0) Seconds INR 1.4 H (0.9-1.1) APTT 41.6 H (21.0-31.0) Seconds PTT Ratio 1.5 Sodium 132 L (136-145) mmol/L Potassium 4.2 (3.5-5.1) mmol/L Chloride 100 (98-107) mmol/L Carbon Dioxide 23 (21-32) mmol/L Anion Gap 9 (3-11) BUN 28 H (6-23) mg/dl Creatinine 1.33 H (0.6-1.2) mg/dl Est Cr Clr Drug Dosing 42.3 ml/min Est GFR ( Amer) 45.2 ml/min Est GFR (Non-Af Amer) 39.0 ml/min BUN/Creatinine Ratio 21.1 H (10-20) Glucose 117 H (70-99(Fasting)) mg/dl Lactate (0.4-2.0) mmol/L Calcium 8.3 L (8.5-10.1) mg/dl Magnesium 2.0 (1.7-2.4) mg/dl Total Bilirubin 1.0 (0.2-1.0) mg/dl AST 33 (13-39) U/L ALT 14 (7-52) U/L Alkaline Phosphatase 66 (34-104) U/L Troponin I High Sens 61.9 H* (0-14) pg/ml B-Natriuretic Peptide (0-100) pg/ml Total Protein 4.9 L (6.0-8.3) gm/dl Albumin 3.0 L (3.4-5.0) gm/dl Globulin 1.9 L (2.5-4.0) gm/dl Albumin/Globulin Ratio 1.6 (0.9-2) Procalcitonin (0-0.5) ng/ml SARS-CoV-2 (PCR) (Negative) Influenza Type A (PCR) (Neg) Influenza Type B (PCR) (Neg) RSV (RT-PCR) (Neg) 03/11/22 03/11/22 03/11/22 Range/Units 19:40 19:40 19:55 WBC (4.8-10.8) K/uL RBC (4.2-5.4) M/uL Hgb (12.0-16.0) g/dL Hct (37-47) % MCV (80-100) fL MCH (25-34) pg MCHC (32-36) g/dL RDW Std Deviation (36.4-46.3) fL RDW Coeff of Lidya (11.5-14.5) % Plt Count (130-400) K/uL MPV (7.4-10.4) fL Immature Gran % (Auto) % Neut % (Auto) % Lymph % (Auto) % Oliver % (Auto) % Eos % (Auto) % Baso % (Auto) % Neut # (Auto) (1.4-6.5) K/uL Lymph # (Auto) (1.2-3.4) K/uL Oliver # (Auto) (0.11-0.59) K/uL Eos # (Auto) (0-0.5) K/uL Baso # (Auto) (0-0.2) K/uL Immature Gran # (Auto) (0.00-0.02) K/uL Platelet Estimate (Normal) Polychromasia Poikilocytosis PT (9.0-12.0) Seconds INR (0.9-1.1) APTT (21.0-31.0) Seconds PTT Ratio Sodium (136-145) mmol/L Potassium (3.5-5.1) mmol/L Chloride (98-107) mmol/L Carbon Dioxide (21-32) mmol/L Anion Gap (3-11) BUN (6-23) mg/dl Creatinine (0.6-1.2) mg/dl Est Cr Clr Drug Dosing ml/min Est GFR ( Amer) ml/min Est GFR (Non-Af Amer) ml/min BUN/Creatinine Ratio (10-20) Glucose (70-99(Fasting)) mg/dl Lactate 1.3 (0.4-2.0) mmol/L Calcium (8.5-10.1) mg/dl Magnesium (1.7-2.4) mg/dl Total Bilirubin (0.2-1.0) mg/dl AST (13-39) U/L ALT (7-52) U/L Alkaline Phosphatase (34-104) U/L Troponin I High Sens (0-14) pg/ml B-Natriuretic Peptide (0-100) pg/ml Total Protein (6.0-8.3) gm/dl Albumin (3.4-5.0) gm/dl Globulin (2.5-4.0) gm/dl Albumin/Globulin Ratio (0.9-2) Procalcitonin 0.29 (0-0.5) ng/ml SARS-CoV-2 (PCR) NEGATIVE (Negative) Influenza Type A (PCR) Negative (Neg) Influenza Type B (PCR) Negative (Neg) RSV (RT-PCR) Negative (Neg) 03/11/22 Range/Units 20:15 WBC (4.8-10.8) K/uL RBC (4.2-5.4) M/uL Hgb (12.0-16.0) g/dL Hct (37-47) % MCV (80-100) fL MCH (25-34) pg MCHC (32-36) g/dL RDW Std Deviation (36.4-46.3) fL RDW Coeff of Lidya (11.5-14.5) % Plt Count (130-400) K/uL MPV (7.4-10.4) fL Immature Gran % (Auto) % Neut % (Auto) % Lymph % (Auto) % Oliver % (Auto) % Eos % (Auto) % Baso % (Auto) % Neut # (Auto) (1.4-6.5) K/uL Lymph # (Auto) (1.2-3.4) K/uL Oliver # (Auto) (0.11-0.59) K/uL Eos # (Auto) (0-0.5) K/uL Baso # (Auto) (0-0.2) K/uL Immature Gran # (Auto) (0.00-0.02) K/uL Platelet Estimate (Normal) Polychromasia Poikilocytosis PT (9.0-12.0) Seconds INR (0.9-1.1) APTT (21.0-31.0) Seconds PTT Ratio Sodium (136-145) mmol/L Potassium (3.5-5.1) mmol/L Chloride (98-107) mmol/L Carbon Dioxide (21-32) mmol/L Anion Gap (3-11) BUN (6-23) mg/dl Creatinine (0.6-1.2) mg/dl Est Cr Clr Drug Dosing ml/min Est GFR ( Amer) ml/min Est GFR (Non-Af Amer) ml/min BUN/Creatinine Ratio (10-20) Glucose (70-99(Fasting)) mg/dl Lactate (0.4-2.0) mmol/L Calcium (8.5-10.1) mg/dl Magnesium (1.7-2.4) mg/dl Total Bilirubin (0.2-1.0) mg/dl AST (13-39) U/L ALT (7-52) U/L Alkaline Phosphatase (34-104) U/L Troponin I High Sens (0-14) pg/ml B-Natriuretic Peptide 614 H (0-100) pg/ml Total Protein (6.0-8.3) gm/dl Albumin (3.4-5.0) gm/dl Globulin (2.5-4.0) gm/dl Albumin/Globulin Ratio (0.9-2) Procalcitonin (0-0.5) ng/ml SARS-CoV-2 (PCR) (Negative) Influenza Type A (PCR) (Neg) Influenza Type B (PCR) (Neg) RSV (RT-PCR) (Neg) Administered Medications Discontinued Medications Furosemide (Furosemide 40 Mg/4 Ml Vial) 40 mg IV ONE ONE Stop: 03/11/22 19:39 Last Admin: 03/11/22 20:28 Dose: 40 mg Documented by: [id number] Guaifenesin (Guaifenesin 600 Mg Tabcr) 1,200 mg PO NOW STA Stop: 03/11/22 22:05 Last Admin: 03/11/22 22:58 Dose: 1,200 mg Documented by: [id number] Piperacillin Sod/Tazobactam Sod (Zosyn) 4.5 gm in 120 mls @ 240 mls/hr IV NOW ONE Stop: 03/11/22 20:07 Last Infusion: 03/11/22 21:20 Dose: 0 mls/hr Documented by: [id number] Admin: 03/11/22 20:28 Dose: 240 mls/hr Documented by: [id number] Acetaminophen (Ofirmev) 1,000 mg in 100 mls @ 400 mls/hr IV NOW STA Stop: 03/11/22 19:54 Last Infusion: 03/11/22 22:10 Dose: 0 mls/hr Documented by: [id number] Admin: 03/11/22 21:50 Dose: 400 mls/hr Documented by: [id number] Vancomycin HCl 2,500 mg/ (Sodium Chloride) 550 mls @ 200 mls/hr IV NOW ONE Stop: 03/11/22 22:26 Last Admin: 03/11/22 21:50 Dose: 200 mls/hr Documented by: [id number] Calcium Gluconate () 1,000 mg in 60 mls @ 240 mls/hr IV NOW STA Stop: 03/11/22 20:48 Last Infusion: 03/11/22 21:40 Dose: 0 mls/hr Documented by: [id number] Admin: 03/11/22 21:23 Dose: 240 mls/hr Documented by: [id number] Imaging Data Radiologist's Impression: Chest X-Ray 03/11/22 19:38 XR chest 1V portable CLINICAL HISTORY: SEPSIS. COMPARISON STUDY: 05/13/2020 TECHNIQUE: 1 view of the chest FINDINGS: Single frontal view of the chest demonstrates the heart to be enlarged. There has been development of central vascular congestion along with patchy groundglass alveolar opacities bilaterally which probably represents edema rather than pneumonia. No confluent alveolar opacities are seen. There is no evidence for pleural effusion. There is no peripheral interstitial edema p resent. There is no acute osseous pathology. IMPRESSION: 1. Cardiomegaly with central vascular congestion and suspicion of mild alveolar edema as well. ACT 112: Negative or not required by law. Electronically signed by: Abhijit Campos M.D. 03/11/2022 8:31 PM Discharge Plan Visit Data Chief Complaint: Fever ED Provider: Elias Obando Discharge Problem: Acute exacerbation of CHF (congestive heart failure), Kidney transplant recipient, Atrial fibrillation with rapid ventricular response, Fever, Acute respiratory distress Discharge Instructions Interventions: ED Discharge Assessment Last Done: 03/12/22 00:08
[2022-03-11] MEDS ORDERED: PIPERACILLIN/TAZOBACTAM 4.5 GM/120 ML BAG IV ONE (19:38)
[2022-03-11] MEDS ORDERED: FUROSEMIDE 40 MG/4 ML VIAL IV ONE (19:38)
[2022-03-11] MEDS ORDERED: PIPERACILL/TAZOBAC CONSULT ACTIVE PRN (19:38)
[2022-03-11] MEDS ORDERED: ACETAMINOPHEN 1,000 MG/100 ML VIAL IV STA (19:40)
[2022-03-11] MEDS ORDERED: VANCOMYCIN CONSULT ACTIVE PRN (19:42)
[2022-03-11] MEDS ORDERED: VANCOMYCIN HCL 2,500 MG in SODIUM CHLORIDE 0.9% 500 ML IV ONE (19:42)
[2022-03-11 20:13] LABS: INR 1.4 (0.9-1.1); Partial Thromboplastin Ratio 1.5; Partial Thromboplastin Time 41.6 Seconds (21.0-31.0); Prothrombin Time 14.2 Seconds (9.0-12.0)
[2022-03-11 20:20] LABS: Albumin Globulin Ratio 1.6 (0.9-2); BUN Creatinine Ratio 21.1 (10-20); Calcium 8.3 mg/dl (8.5-10.1); Creatinine Clr Calc Pharmacy 42.3 ml/min; Est GFR (African American) 45.2 ml/min; Globulin 1.9 gm/dl (2.5-4.0); Potassium 4.2 mmol/L (3.5-5.1); Total Protein 4.9 gm/dl (6.0-8.3)
--- NOTE | 2022-03-11 20:32 | XRay Report ---
XR chest 1V portable CLINICAL HISTORY: SEPSIS. COMPARISON STUDY: 05/13/2020 TECHNIQUE: 1 view of the chest FINDINGS: Single frontal view of the chest demonstrates the heart to be enlarged. There has been development of central vascular congestion along with patchy groundglass alveolar opacities bilaterally which proba miesha represents edema rather than pneumonia. No confluent alveolar opacities are seen. There is no brittney dence for pleural effusion. There is no peripheral interstitial edema present. There is no acute osse ous pathology. IMPRESSION: 1. Cardiomegaly with central vascular congestion and suspicion of mild alveolar edema as well. ACT 112: Negative or not required by law. Electronically signed by: Abhijit Campos M.D. 03/11/2022 8:31 PM
[2022-03-11] MEDS ORDERED: CALCIUM GLUCONATE 1,000 MG/60 ML BAG IV STA (20:34)
[2022-03-11 20:36] LABS: Basophils # (auto) 0.02 K/uL (0-0.2); Basophils % (auto) 0.4 %; Hematocrit (blood only) 34.4 % (37-47); Hemoglobin 11.5 g/dL (12.0-16.0); Immature Granulocytes # (auto) 0.01 K/uL (0.00-0.02); Immature Granulocytes % (auto) 0.2 %; Lymphocytes # (auto) 0.69 K/uL (1.2-3.4); Lymphocytes % (auto) 12.1 %; Mean Corpuscular Hemoglobin 32.1 pg (25-34); Mean Corpuscular Hgb Conc 33.4 g/dL (32-36); Mean Corpuscular Volume 96.1 fL (80-100); Mean Platelet Volume 12.4 fL (7.4-10.4); Monocytes # (auto) 0.35 K/uL (0.11-0.59); Monocytes % (auto) 6.2 %; Neutrophils # (auto) 4.62 K/uL (1.4-6.5); Neutrophils % (auto) 81.1 %; Platelet Count 128 K/uL (130-400); Platelet Estimate Decreased (Normal); Poikilocytosis Present; Polychromasia 1+; RDW Coefficient of Variation 17.6 % (11.5-14.5); RDW Standard Deviation 62.1 fL (36.4-46.3); Red Blood Count 3.58 M/uL (4.2-5.4); White Blood Count 5.69 K/uL (4.8-10.8)
[2022-03-11 20:39] LABS: Troponin I High Sensitivity 61.9 pg/ml (0-14)
[2022-03-11 21:09] LABS: Influenza A virus by PCR Negative (Neg); Influenza B virus by PCR Negative (Neg); RSV by PCR Negative (Neg); SARS CoV2 RNA(COVID-19) InHosp NEGATIVE (Negative)
[2022-03-11] MEDS ORDERED: guaiFENesin 600 MG TABCR PO STA (22:04)
[2022-03-12] MEDS ORDERED: BUDESONIDE 0.5 MG/2 ML VIAL (PULMICORT) NEB ONE (00:36)
[2022-03-12] MEDS ORDERED: PIPERACILL/TAZOBAC CONSULT ACTIVE PRN (00:36)
[2022-03-12] MEDS ORDERED: CARBOHYDRATES FOR HYPOGLYCEMIA PO PRN (00:36)
[2022-03-12] MEDS ORDERED: ONDANSETRON INJ 2 MG/ML 2 ML VIAL IV PRN (00:36)
[2022-03-12] MEDS ORDERED: ZOLEDRONIC ACID 5 MG/100 ML VIAL IV SCH (00:36)
[2022-03-12] MEDS ORDERED: GLUCOSE 40% GEL 15 GM TUBE PO PRN (00:36)
[2022-03-12] MEDS ORDERED: VANCOMYCIN CONSULT ACTIVE PRN (00:36)
[2022-03-12] MEDS ORDERED: DEXTROSE 50% 50 ML SYRINGE IV PRN (00:36)
[2022-03-12] MEDS ORDERED: GLUCAGON FOR INJ 1 MG VIAL SQ PRN (00:36)
[2022-03-12] MEDS ORDERED: GLUCOSE 10 TABS/TUBE PO PRN (00:36)
[2022-03-12] MEDS: allopurinoL 300 MG TAB PO SCH ×3 (01:46→20:37)
[2022-03-12] MEDS: FAMOTIDINE 20 MG TAB PO SCH ×3 (01:47→20:36)
[2022-03-12] MEDS: METOPROLOL TARTRATE 25 MG TAB PO SCH ×3 (01:47→20:35)
[2022-03-12] MEDS: MAGNESIUM OXIDE 400 MG TAB PO SCH ×3 (01:47→20:36)
[2022-03-12] MEDS: APIXABAN 5 MG TABLET PO SCH ×3 (01:47→20:34)
[2022-03-12] MEDS: CEROVITE ADV FORMULA TAB PO SCH ×3 (01:48→20:35)
[2022-03-12] MEDS: LEVOTHYROXINE SODIUM 75 MCG TABLET PO SCH (01:49)
[2022-03-12] MEDS: MYCOPHENOLATE MOFETIL 250 MG CAP PO SCH ×3 (01:49→20:38)
[2022-03-12] MEDS: TACROLIMUS 0.5 MG CAP PO SCH ×3 (01:50→20:38)
[2022-03-12] MEDS: PIPERACILLIN/TAZOBACTAM 4.5 GM in DEXTROSE 5% 100 ML IV SCH ×3 (01:54→17:11)
--- NOTE | 2022-03-12 03:55 | History & Physical Report ---
Date of Service March 12, 2022 The patient was seen and examined on 03/11/22 Assessment & Plan (1) Acute respiratory failure with hypoxia: Plan: Acute respiratory failure with hypoxia/CHF exacerbation/pneumonia- The patient will be admitted to telemetry for serial cardiac enzymes, serial EKG's, cardiac rhythm monitoring and a 2-D echocardiogram with Dopplers. Treat both underlying processes Patient initially required BiPAP, but was able to be taken off BiPAP and placed on mask 24% (2) Acute exacerbation of CHF (congestive heart failure): Plan: Elevated troponin/CHF exacerbation/atrial fibrillation- The patient will be admitted to telemetry for serial cardiac enzymes, serial EKG's, cardiac rhythm monitoring and a 2-D echocardiogram with Dopplers. Patient received furosemide 40 mg IV in ED with good response Continue furosemide 40 mg p.o. twice daily starting in the a.m. Continue apixaban 5 mg p.o. twice daily, diltiazem extended release 240 mg every morning, lisinopril 10 mg p.o. in the evening and Toprol tartrate 37.5 mg p.o. twice daily (3) Atrial fibrillation with rapid ventricular response: Plan: See above (4) HTN (hypertension): Plan: See above (5) Pneumonia: Plan: Continue vancomycin IV and Zosyn IV begun in ED Duonebs every 4 hours while awake and every 2 hours when necessary. (6) Kidney transplant recipient: Plan: Continue immunosuppressive's, CellCept and tacrolimus (7) Diabetes mellitus type II, controlled: Plan: Hold insulin glargine [address] on Accu-Cheks before meals and at bedtime with NovoLog coverage per scale (8) AV fistula: Plan: Left upper extremity AV fistula with palpable thrill (9) Hypercholesteremia: Plan: Continue simvastatin 20 mg daily (10) Hypothyroidism: Plan: Continue levothyroxine 75 mcg daily (11) Gout: Plan: Continue allopurinol Admission and Anticipated Discharge Date Admission Date: March 11, 2022 History of Present Illness Chief Complaint: The patient presents to the emergency department with complaint of fever, cough and leg swelling progressive over the past week Primary Care Provider: Jennifer Crum MD The patient is a 76-year-old female with a past medical history of atrial fibrillation, gout, diabetes mellitus, peripheral neuropathy, hyperparathyroidism, hypertension, hypercholesterolemia, hypothyroidism, proliferative pyelonephritis with nephrotic syndrome, atrial fibrillation, kidney transplant recipient status, left upper extremity AV fistula, and polycystic kidney disease. She presents with symptoms as noted above, and were concerning due to her immunocompromise status on immunosuppressive medications. Allergies Allergy/AdvReac Type Severity Reaction Status Date / Time adhesive Allergy Intermediate ERYTHEMA Verified 03/11/22 19:50 WITH ADHESIVE TAPE, blisters Home Medications Medication Instructions Recorded Confirmed Type multivitamin 1 tab PO QAM #0 05/23/06 03/11/22 History omega 1-lnv-acp-fish oil 1,000 mg 1,000 mg PO BID #0 10/30/10 03/11/22 History (120 mg-180 mg) capsule (Fish Oil) folic acid 1 mg tablet 1 mg PO QAM #0 05/07/12 03/11/22 History lutein 20 mg capsule 20 mg PO QPM #0 11/11/14 03/11/22 History lancets 33 gauge (OneTouch Delica #100 ea 06/15/19 02/02/22 History Plus Lancet) tacrolimus 0.5 mg capsule, 0.5 mg PO Q12 cap 08/28/19 03/11/22 History immediate-release blood sugar diagnostic (OneTouch #100 ea 12/21/19 02/02/22 Rx Ultra Blue Test Strip) vit C,E,zinc,copper-wzdpn7u 250 1 cap PO BID 05/13/20 03/11/22 History mg-lutein 5 mg-zeaxanthin 1 mg capsule (Ocuvite Adult 50 Plus) mycophenolate mofetil 250 mg 250 mg PO Q12 cap 10/15/20 03/11/22 History capsule magnesium oxide 400 mg (241.3 mg 400 mg PO BID #180 tab 02/11/21 03/11/22 Rx magnesium) tablet insulin glargine 100 unit/mL (3 5 unit SUBCUT QAM #15 ml 03/13/21 03/11/22 Rx mL) subcutaneous pen (Lantus Solostar U-100 Insulin) simvastatin 20 mg tablet 20 mg PO HS #90 tab 06/29/21 03/11/22 Rx apixaban 5 mg tablet (Eliquis) 5 mg PO BID #180 tab 07/27/21 03/11/22 Rx furosemide 40 mg tablet 40 mg PO BID tab 07/30/21 03/11/22 History zoledronic acid 5 mg/100 mL in 5 mg IV YEARLY #100 ml 07/30/21 03/11/22 Rx mannitol 5 %-water intravenous piggybck (Reclast) metoprolol tartrate 25 mg tablet 37.5 mg PO BID 90 Days #270 tab 09/07/21 03/11/22 Rx diltiazem HCl 240 mg 240 mg PO QAM #90 cap 11/25/21 03/11/22 Rx capsule,extended release 24 hr (Cartia XT) famotidine 20 mg tablet 20 mg PO BID #60 tab 01/12/22 03/11/22 Rx allopurinol 300 mg tablet 300 mg PO UD 03/11/22 03/11/22 History levothyroxine 75 mcg tablet 75 mcg PO DAILYBB 03/11/22 03/11/22 History lisinopril 10 mg tablet 10 mg PO HS 03/11/22 03/11/22 History Past Med/Surg History Medical History Atrial fibrillation DX 2013 > NO CARDIOVERSIONS Atrial fibrillation with RVR Bilateral leg edema Diabetic peripheral neuropathy associated with type 2 diabetes mellitus Gastric ulcer RESOLVED History of dysplastic nevus HTN (hypertension) Hypercholesteremia Hyperparathyroidism Hypothyroidism Long-term current use of tacrolimus Macular degeneration BILAT Mitral regurgitation Osteoporosis Paroxysmal atrial fibrillation Personal history of diabetic foot ulcer Polycystic kidney disease HX > DR. ROCK > [facility] > DR. 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 History of tonsillectomy Hx of cholecystectomy Kidney transplant recipient RIGHT > 1995 Family History Mother Diabetes Father Kidney disease Hypertension Son Kidney disease Sister Kidney disease Social History Smoking Status: Never smoker Tobacco Type: Cigarettes Second Hand Exposure: No; Do You Dip or Chew Tobacco: No; Tobacco Cessation Education Requested by Patient: No Hx Alcohol Use: No Hx Substance Use: No Preferred Language: Lebanese Communication Ability: Effective Visual Impairment: No Limitations Energy Infrastructure Engineer Required: No Beliefs That Will Affect Care: None Current Living Situation: Family current occupational status: retired Other Information That Helps Us Care for You: No Feels Safe at Home: Yes Safety Concerns: Feels Safe At This Time Assistive Devices: Glasses, Special Shoe and Walker Assistive Devices Comment: glasses with pt Review of Systems Review of Systems: The patient denies chest pain, palpitations, cough, lower extremity swelling, sore throat, fevers, chills, sweats, nausea, vomiting, diarrhea , constipation, abdominal pain, pelvic pain, blood in urine or stool, dysuria, urinary frequency or urgency, lightheadedness, dizziness, headache, memory loss, loss of consciousness, rash, abnormal bruising or bleeding, imbalance, focal weakness, numbness or tingling in arms or legs, generalized arthralgias or myalgias, back or neck pain, or night sweats. The review of systems is otherwise negative other than for that already noted above, and at least 10 systems have been reviewed. Physical Exam Physical Exam: The patient is awake, alert and oriented 3, well developed and well nourished, normocephalic and atraumatic, lying in bed and in no acute distress. HEENT--PERRL, EOMI, mucous membranes and oropharynx normal. Neck--supple. No JVD. No bruits. Thyroid normal, trachea midline, no adenopathy. Heart--normal S1 and S2. No murmurs, rubs or gallops. Lungs--clear bilaterally, no respiratory distress, no accessory muscle use. Abdomen--normal bowel sounds and soft. Nontender. Nondistended. Obese Extremities--no cyanosis or clubbing. 1+ bilateral pretibial pitting edema Dermatologic--normal skin turgor, normal color, no abnormal lymph nodes, no rash. Neurologic--cranial nerves II through XII grossly intact. Rheumatologic--normal range of motion. Psychiatric--normal affect. Results & Data Results & Data ([facility]) Vital Signs (Past 12 Hours) Vital Signs Temp Pulse Pulse Resp BP BP Pulse Ox 03/12/22 01:36 84 18 91 03/12/22 00:44 36.8 C 105 H 20 97/63 L 96 03/11/22 22:45 113 H 18 97 03/11/22 22:38 112 H 28 H 94 04/14/22 22:30 110 H 21 92 03/11/22 22:00 104 H 21 95 03/11/22 21:30 104 H 21 94 03/11/22 21:15 113 H 22 94 03/11/22 21:00 117 H 21 95 03/11/22 20:45 113 H 21 95 03/11/22 20:30 113 H 21 94 03/11/22 20:16 129 H 21 96 03/11/22 20:08 130 H 22 96 03/11/22 19:57 24 94 03/11/22 19:54 128 H 29 H 96 03/11/22 19:53 129 H 26 H 92 03/11/22 19:51 129 H 129 H 27 H 91 03/11/22 19:21 37.9 C H 124 H 128 H 28 H 134/77 134/77 92 Laboratory Results Laboratory Results WBC 5.69 K/uL (4.8-10.8) 03/11/22 19:40 RBC 3.58 M/uL (4.2-5.4) L 03/11/22 19:40 Hgb 11.5 g/dL (12.0-16.0) L 03/11/22 19:40 Hct 34.4 % (37-47) L 03/11/22 19:40 MCV 96.1 fL (80-100) 03/11/22 19:40 MCH 32.1 pg (25-34) 03/11/22 19:40 MCHC 33.4 g/dL (32-36) 03/11/22 19:40 RDW Std Deviation 62.1 fL (36.4-46.3) H 03/11/22 19:40 RDW Coeff of Lidya 17.6 % (11.5-14.5) H 03/11/22 19:40 Plt Count 128 K/uL (130-400) L 03/11/22 19:40 MPV 12.4 fL (7.4-10.4) H 03/11/22 19:40 Immature Gran % (Auto) 0.2 % 03/11/22 19:40 Neut % (Auto) 81.1 % 03/11/22 19:40 Lymph % (Auto) 12.1 % 03/11/22 19:40 Lucas % (Auto) 6.2 % 03/11/22 19:40 Eos % (Auto) 0.0 % 03/11/22 19:40 Baso % (Auto) 0.4 % 03/11/22 19:40 Neut # (Auto) 4.62 K/uL (1.4-6.5) 03/11/22 19:40 Lymph # (Auto) 0.69 K/uL (1.2-3.4) L 03/11/22 19:40 Lucas # (Auto) 0.35 K/uL (0.11-0.59) 03/11/22 19:40 Eos # (Auto) 0.00 K/uL (0-0.5) 03/11/22 19:40 Baso # (Auto) 0.02 K/uL (0-0.2) 03/11/22 19:40 Immature Gran # (Auto) 0.01 K/uL (0.00-0.02) 03/11/22 19:40 Platelet Estimate Decreased (Normal) L 03/11/22 19:40 Polychromasia 1+ 03/11/22 19:40 Poikilocytosis Present 03/11/22 19:40 PT 14.2 Seconds (9.0-12.0) H 03/11/22 19:40 INR 1.4 (0.9-1.1) H 03/11/22 19:40 APTT 41.6 Seconds (21.0-31.0) H 03/11/22 19:40 PTT Ratio 1.5 03/11/22 19:40 Sodium 132 mmol/L (136-145) L 03/11/22 19:40 Potassium 4.2 mmol/L (3.5-5.1) 03/11/22 19:40 Chloride 100 mmol/L (98-107) 03/11/22 19:40 Carbon Dioxide 23 mmol/L (21-32) 03/11/22 19:40 Anion Gap 9 (3-11) 03/11/22 19:40 BUN 28 mg/dl (6-23) H 03/11/22 19:40 Creatinine 1.33 mg/dl (0.6-1.2) H 03/11/22 19:40 Est Cr Clr Drug Dosing 42.3 ml/min 03/11/22 19:40 Est GFR ( Amer) 45.2 ml/min 03/11/22 19:40 Est GFR (Non-Af Amer) 39.0 ml/min 03/11/22 19:40 BUN/Creatinine Ratio 21.1 (10-20) H 03/11/22 19:40 Glucose 117 mg/dl (70-99(Fasting)) H 03/11/22 19:40 Lactate 1.3 mmol/L (0.4-2.0) 03/11/22 19:40 Calcium 8.3 mg/dl (8.5-10.1) L 03/11/22 19:40 Magnesium 2.0 mg/dl (1.7-2.4) 03/11/22 19:40 Total Bilirubin 1.0 mg/dl (0.2-1.0) 03/11/22 19:40 AST 33 U/L (13-39) 03/11/22 19:40 ALT 14 U/L (7-52) 03/11/22 19:40 Alkaline Phosphatase 66 U/L (34-104) 03/11/22 19:40 Troponin I High Sens 61.9 pg/ml (0-14) H* 03/11/22 19:40 B-Natriuretic Peptide 614 pg/ml (0-100) H 03/11/22 20:15 Total Protein 4.9 gm/dl (6.0-8.3) L 03/11/22 19:40 Albumin 3.0 gm/dl (3.4-5.0) L 03/11/22 19:40 Globulin 1.9 gm/dl (2.5-4.0) L 03/11/22 19:40 Albumin/Globulin Ratio 1.6 (0.9-2) 03/11/22 19:40 Procalcitonin 0.29 ng/ml (0-0.5) 03/11/22 19:40 Nasal Screen MRSA (PCR) Negative (Negative) 03/12/22 01:20 SARS-CoV-2 (PCR) NEGATIVE (Negative) 03/11/22 19:55 Influenza Type A (PCR) Negative (Neg) 03/11/22 19:55 Influenza Type B (PCR) Negative (Neg) 03/11/22 19:55 RSV (RT-PCR) Negative (Neg) 03/11/22 19:55 Impressions Chest X-Ray 03/11/22 19:38 XR chest 1V portable CLINICAL HISTORY: SEPSIS. COMPARISON STUDY: 05/13/2020 TECHNIQUE: 1 view of the chest FINDINGS: Single frontal view of the chest demonstrates the heart to be enlarged. There has been development of central vascular congestion along with patchy groundglass alveolar opacities bilaterally which probably represents edema rather than pneumonia. No confluent alveolar opacities are seen. There is no evidence for pleural effusion. There is no peripheral interstitial edema present. There is no acute osseous pathology. IMPRESSION: 1. Cardiomegaly with central vascular congestion and suspicion of mild alveolar edema as well. ACT 112: Negative or not required by law. Electronically signed by: Abhijit Campos M.D. 03/11/2022 8:31 PM Code Status & VTE Plan Code Status Full code VTE Prophylaxis Plan VTE Prophylaxis will be ordered: Yes PG Care Time/CCT Total # of Minutes Spent Total Time Spent with Patient: Total time spent is greater than 50% in coordination of care (as documented) at patient's floor/unit and/or counseling patient: Coding Level of Care Code 97755 Initial Inpt Care Lvl 3 Diagnoses Acute exacerbation of CHF (congestive heart failure) I50.9 Heart failure type: unspecified Atrial fibrillation with rapid ventricular response I48.91 HTN (hypertension) I10 Hypertension type: primary hypertension Hypercholesteremia E78.00 Hypothyroidism E03.9 Hypothyroidism type: unspecified Kidney transplant recipient Z94.0 Diabetes mellitus type II, controlled E11.42; Z79.4 Diabetes mellitus intermediate designer insulin use: with shelter use Diabetes mellitus complication status: with neurologic complications Diabetes mellitus complication detail: with polyneuropathy AV fistula I77.0 Gout M1A.30X0 Gout site: unspecified site Gout etiology: due to renal impairment Chronicity: chronic Presence of tophus: without tophus Acute respiratory failure with hypoxia J96.01 Pneumonia J18.9 (1) Acute exacerbation of CHF (congestive heart failure) Heart failure type: unspecified Qualified Code(s): I50.9 - Heart failure, unspecified (2) HTN (hypertension) Hypertension type: primary hypertension Qualified Code(s): I10 - Essential (primary) hypertension (3) Hypothyroidism Hypothyroidism type: unspecified Qualified Code(s): E03.9 - Hypothyroidism, unspecified (4) Diabetes mellitus type II, controlled Diabetes mellitus intermediate designer insulin use: with shelter use Diabetes mellitus complication status: with neurologic complications Diabetes mellitus complication detail: with polyneuropathy Qualified Code(s): E11.42 - Type 2 diabetes mellitus with diabetic polyneuropathy; Z79.4 - long term care pharmacist (current) use of insulin (5) Gout Gout site: unspecified site Gout etiology: due to renal impairment Chronicity: chronic Presence of tophus: without tophus Qualified Code(s): 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
[2022-03-12] MEDS: ALBUT/IPRATROP 3MG/0.5MG NEB 3 ML VIAL NEB SCH ×4 (07:03→19:23)
[2022-03-12] MEDS: BUDESONIDE 0.5 MG/2 ML VIAL (PULMICORT) NEB SCH ×2 (07:03→19:23)
[2022-03-12 07:10] LABS: Appearance Urine Cloudy (Clear); Bilirubin Urine Negative (Negative); Blood Urine 1+ (Negative); Color Urine Yellow; Glucose Urine UA Negative (Negative); Ketones Urine Negative (Negative); Leukocyte Esterase Urine 1+ (Negative); Nitrite Urine Negative (Negative); Protein Urine 3+ (Negative); RBC Urine Automated 0-4 /hpf (0-4); Specific Gravity Urine 1.017 (1.000-1.030); Urobilinogen Urine Negative (Negative); WBC Urine Automated >30 /hpf (0-5)
[2022-03-12 07:28] LABS: Bacteria Urine Automated 2+ (Negative)
[2022-03-12] MEDS: INSULIN ASPART PER UNIT SC SCH ×4 (07:59→20:39)
[2022-03-12 08:00] LABS: Estimated Average Glucose 126 mg/dl
[2022-03-12] MEDS: FOLIC ACID 1 MG TAB PO SCH (08:11)
[2022-03-12] MEDS: OMEGA-3 (PURIFIED FISH OIL) 1 GM CAP PO SCH ×2 (08:11→20:34)
[2022-03-12] MEDS: dilTIAZem HCL 240 MG CAPCR PO SCH (08:13)
[2022-03-12] MEDS: MULTIVITAMIN TAB PO SCH (08:14)
[2022-03-12 08:52] LABS: BUN Creatinine Ratio 21.3 (10-20); Blood Urea Nitrogen 32 mg/dl (6-23); Calcium 7.6 mg/dl (8.5-10.1); Carbon Dioxide 21 mmol/L (21-32); Chloride 102 mmol/L (98-107); Creatinine Clr Calc Pharmacy 36.8 ml/min; Est GFR (African American) 39.1 ml/min; Est GFR (Non-African American) 33.7 ml/min; Glucose 102 mg/dl (70-99(Fasting))
[2022-03-12] MEDS ORDERED: FUROSEMIDE 40 MG TAB PO SCH (09:00)
[2022-03-12] MEDS ORDERED: FUROSEMIDE 40 MG/4 ML VIAL IV SCH (09:00)
[2022-03-12 09:46] LABS: Hematocrit (blood only) 29.4 % (37-47); Hemoglobin 9.9 g/dL (12.0-16.0); Mean Corpuscular Hemoglobin 32.1 pg (25-34); Mean Corpuscular Volume 95.5 fL (80-100); RDW Coefficient of Variation 17.8 % (11.5-14.5); RDW Standard Deviation 62.5 fL (36.4-46.3); Red Blood Count 3.08 M/uL (4.2-5.4); White Blood Count 3.83 K/uL (4.8-10.8)
[2022-03-12 09:58] LABS: Mean Corpuscular Hgb Conc 33.7 g/dL (32-36)
[2022-03-12 10:01] LABS: Potassium 3.7 mmol/L (3.5-5.1)
[2022-03-12 10:20] LABS: Basophils # (auto) 0.01 K/uL (0-0.2); Basophils % (auto) 0.3 %; Immature Granulocytes # (auto) 0.01 K/uL (0.00-0.02); Immature Granulocytes % (auto) 0.3 %; Lymphocytes % (auto) 10.4 %; Mean Platelet Volume 10.9 fL (7.4-10.4); Monocytes # (auto) 0.26 K/uL (0.11-0.59); Monocytes % (auto) 6.8 %; Neutrophils # (auto) 3.15 K/uL (1.4-6.5); Neutrophils % (auto) 82.2 %; Platelet Count 88 K/uL (130-400); Platelet Estimate Decreased (Normal)
--- NOTE | 2022-03-12 11:16 | Cardiology Consultation ---
Date of Consultation March 12, 2022 Assessment & Plan (1) Acute exacerbation of CHF (congestive heart failure): -she is 12 lbs over her dry weight. -agree with intravenous Lasix. -continue lisinopril. (2) Atrial fibrillation with rapid ventricular response: -ventricular response now adequately controlled. -continue metoprolol tartrate and diltiazem. -continue Eliquis as her long-term anticoagulant. (3) HTN (hypertension): -adequate control on current regimen. (4) Hypercholesteremia: -continue simvastatin. History of Present Illness Attending Physician: Hamlet Murray MD History of Present Illness Mrs. Page is a 76-year-old female admitted earlier today with acute respiratory failure felt secondary to a pneumonia and decompensated CHF. This consultation was ordered to assist in her cardiac management. Of note, patient is well known to me from the outpatient setting. The patient was in her usual state of health until approximately 2 weeks prior to presentation. She began to note a nonproductive cough. She did not experienced any fever or chills. She did notice a gradual increase in her weight having gained 12 lb over her dry weight. She denies experienced any angina pectoris. She further denies syncope, presyncope, PND, orthopnea, palpitations, change or lower extremity edema, and claudication. The patient presented to the emergency room last evening and was requiring CPAP for proper oxygenation. She did diurese with the use of intravenous Lasix and was started on intravenous antibiotics. Fortunately, she improved rapidly with diuresis. She was also noted to be in atrial fibrillation with a rapid ventricular response. She does carry a history of paroxysmal atrial fibrillation. She is tolerating rate control and long-term anticoagulation without difficulty. Currently, patient is resting comfortably in bed without complaints. Past medical and surgical history 1. Hypertension 2. Hypercholesterolemia 3. Paroxysmal atrial fibrillation 4. Mild LVH 5. Mild mitral regurgitation 6. Diabetes mellitus 7. Hypothyroidism 8. Hyperparathyroidism 9. Polycystic kidney disease 10. Nephrotic syndrome 11. Diabetic neuropathy 12. Osteoporosis 13. Gastric ulcer 14. Macular degeneration 15. Gout 16. Renal transplant-June 2011 17. Hysterectomy 18. Cholecystectomy 19. Tonsillectomy 20. Left upper extremity fistula Social history and lives with her No tobacco alcohol Family history Noncontributory Review of systems A 10 review systems was undertaken and negative except for that described above. Allergies Allergy/AdvReac Type Severity Reaction Status Date / Time adhesive Allergy Intermediate ERYTHEMA Verified 03/11/22 19:50 WITH ADHESIVE TAPE, blisters Home Medications Medication Instructions Recorded Confirmed Type multivitamin 1 tab PO QAM #0 05/23/06 03/11/22 History omega 6-rdj-fic-fish oil 1,000 mg 1,000 mg PO BID #0 10/30/10 03/11/22 History (120 mg-180 mg) capsule (Fish Oil) folic acid 1 mg tablet 1 mg PO QAM #0 05/07/12 03/11/22 History lutein 20 mg capsule 20 mg PO QPM #0 11/11/14 03/11/22 History lancets 33 gauge (General SentimentTouch Delica #100 ea 06/15/19 02/02/22 History Plus Lancet) tacrolimus 0.5 mg capsule, 0.5 mg PO Q12 cap 08/28/19 03/11/22 History immediate-release blood sugar diagnostic (General SentimentTouch #100 ea 12/21/19 02/02/22 Rx Ultra Blue Test Strip) vit C,E,zinc,copper-pzgte1u 250 1 cap PO BID 05/13/20 03/11/22 History mg-lutein 5 mg-zeaxanthin 1 mg capsule (Ocuvite Adult 50 Plus) mycophenolate mofetil 250 mg 250 mg PO Q12 cap 10/15/20 03/11/22 History capsule magnesium oxide 400 mg (241.3 mg 400 mg PO BID #180 tab 02/11/21 03/11/22 Rx magnesium) tablet insulin glargine 100 unit/mL (3 5 unit SUBCUT QAM #15 ml 03/13/21 03/11/22 Rx mL) subcutaneous pen (Lantus Solostar U-100 Insulin) simvastatin 20 mg tablet 20 mg PO HS #90 tab 06/29/21 03/11/22 Rx apixaban 5 mg tablet (Eliquis) 5 mg PO BID #180 tab 07/27/21 03/11/22 Rx furosemide 40 mg tablet 40 mg PO BID tab 07/30/21 03/11/22 History zoledronic acid 5 mg/100 mL in 5 mg IV YEARLY #100 ml 07/30/21 03/11/22 Rx mannitol 5 %-water intravenous piggybck (Reclast) metoprolol tartrate 25 mg tablet 37.5 mg PO BID 90 Days #270 tab 09/07/21 03/11/22 Rx diltiazem HCl 240 mg 240 mg PO QAM #90 cap 11/25/21 03/11/22 Rx capsule,extended release 24 hr (Cartia XT) famotidine 20 mg tablet 20 mg PO BID #60 tab 01/12/22 03/11/22 Rx allopurinol 300 mg tablet 300 mg PO UD 03/11/22 03/11/22 History levothyroxine 75 mcg tablet 75 mcg PO DAILYBB 03/11/22 03/11/22 History lisinopril 10 mg tablet 10 mg PO HS 03/11/22 03/11/22 History Patient History Medical History Atrial fibrillation DX 2013 > NO CARDIOVERSIONS Atrial fibrillation with RVR Bilateral leg edema Diabetic peripheral neuropathy associated with type 2 diabetes mellitus Gastric ulcer RESOLVED History of dysplastic nevus HTN (hypertension) Hypercholesteremia Hyperparathyroidism Hypothyroidism Long-term current use of tacrolimus Macular degeneration BILAT Mitral regurgitation Osteoporosis Paroxysmal atrial fibrillation Personal history of diabetic foot ulcer Polycystic kidney disease HX > DR. ROCK > [facility] > DR. 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 TO HEAD History of tonsillectomy Hx of cholecystectomy Kidney transplant recipient RIGHT > 1995 Family History Mother Diabetes Father Kidney disease Hypertension Son Kidney disease Sister Kidney disease Social History Smoking Status: Never smoker Tobacco Type: Cigarettes Second Hand Exposure: No; Do You Dip or Chew Tobacco: No; Tobacco Cessation Education Requested by Patient: No Hx Alcohol Use: No Hx Substance Use: No Preferred Language: Czech Communication Ability: Effective Visual Impairment: No Limitations Histology Teacher Required: No Beliefs That Will Affect Care: None Current Living Situation: Family current occupational status: retired Other Information That Helps Us Care for You: No Feels Safe at Home: Yes Safety Concerns: Feels Safe At This Time Assistive Devices: Glasses, Special Shoe and Walker Assistive Devices Comment: glasses with pt Physical Exam Physical Exam: In general this is a well-developed well-nourished white female in no acute distress. HEENT exam is negative. Neck is supple with full carotid upstrokes. There are no carotid bruits. No jugular venous distension. There is no thyromegaly. Cardiovascular exam reveals an irregular rhythm with distant heart sounds. A 2/6 basal systolic ejection murmur is noted. A 1/6 decrescendo diastolic murmur noted. No S3. Lungs note distant breath sounds but no rales. Abdomen is obese without bruits. Extremities reveal intact radial artery and posterior tibial pulses bilaterally. Trace pretibial edema is noted. Results & Data ([facility]) Vital Signs (Past 12 Hours) Vital Signs Temp Pulse Pulse Resp BP Pulse Ox 03/12/22 11:03 86 18 93 03/12/22 08:00 105 H 03/12/22 07:03 85 18 93 03/12/22 04:16 36.8 C 81 18 96/61 L 96 03/12/22 01:36 84 18 91 03/12/22 00:44 36.8 C 105 H 20 97/63 L 96 Laboratory Results CBC notes hemoglobin 11.5, hematocrit 34.4, white count 5.7, and platelet count [id number]. Electrolytes note a sodium of 132, potassium 4.2, chloride 100, bicarb 23, BUN 28, creatinine 1.33, and glucose of 102. High sensitive troponin is elevated at 61.9. BNP is elevated 614. Diagnostic Findings Initial EKG notes atrial fibrillation with a rapid ventricular response. Follow-up tracing notes atrial fibrillation with a controlled ventricular response. Chest x-ray notes cardiomegaly and mild CHF. PG Care Time/CCT Total # of Minutes Spent Total Time Spent with Patient: Total time spent is greater than 50% in coordination of care (as documented) at patient's floor/unit and/or counseling patient: Coding Level of Care Code 20329 Initial Inpt Care Lvl 3 Diagnoses Acute exacerbation of CHF (congestive heart failure) I50.9 Heart failure type: unspecified Atrial fibrillation with rapid ventricular response I48.91 HTN (hypertension) I10 Hypertension type: primary hypertension Hypercholesteremia E78.00 (1) Acute exacerbation of CHF (congestive heart failure) Heart failure type: unspecified Qualified Code(s): I50.9 - Heart failure, unspecified (2) HTN (hypertension) Hypertension type: primary hypertension Qualified Code(s): I10 - Essential (primary) hypertension
--- NOTE | 2022-03-12 12:06 | Hospitalist Progress Note ---
Date of Service March 12, 2022 Assessment & Plan (1) Acute respiratory failure with hypoxia: Plan: Acute respiratory failure with hypoxia/CHF exacerbation/pneumonia- The patient will be admitted to telemetry for serial cardiac enzymes, serial EKG's, cardiac rhythm monitoring and a 2-D echocardiogram with Dopplers. Treat both underlying processes Patient initially required BiPAP, but was able to be taken off BiPAP and placed on mask 24% on admission. Now on 1.5 LPM O2 via nasal cannula. (2) Acute exacerbation of CHF (congestive heart failure): Plan: Elevated troponin/CHF exacerbation/atrial fibrillation- Patient received furosemide 40 mg IV in ED, will continue IV BID. Mild bump in Cr however history, weight and CXR consistent with being hypervolemic. Appreciate cardiology review in addition. Continue apixaban 5 mg p.o. twice daily, diltiazem extended release 240 mg every morning, lisinopril 10 mg p.o. in the evening and Toprol tartrate 37.5 mg p.o. twice daily (3) Pneumonia: Plan: Continue Zosyn IV begun in ED. Can discontinue vancomycin since MRSA nose swab negative. Duonebs every 4 hours while awake and every 2 hours when necessary. (4) Fall: Plan: Lumbar spine CT and hip and knee XR to assess for injuries from the fall (5) Atrial fibrillation with rapid ventricular response: Plan: Rate controlled on diltiazem and metoprolol Anticoagulation with apixaban as above (6) HTN (hypertension): Plan: See above (7) Kidney transplant recipient: Plan: Continue immunosuppressive's, CellCept and tacrolimus (8) Diabetes mellitus type II, controlled: Plan: Hold insulin glargine [address] on Accu-Cheks before meals and at bedtime with NovoLog coverage per scale (9) AV fistula: Plan: Left upper extremity AV fistula with palpable thrill (10) Hypercholesteremia: Plan: Continue simvastatin 20 mg daily (11) Hypothyroidism: Plan: Continue levothyroxine 75 mcg daily (12) Gout: Plan: Continue allopurinol Plan: VTE Prophylaxis - Eliquis Diet - heart healthy, T2DM Disposition - continued admission to PCU Admission and Anticipated Discharge Date Admission Date: March 11, 2022 Subjective Patients main ongoing concern is her back pain. Pain occurred in her lower back after her fall. No pain prior to falling. Also having pain in her right knee. Otherwise just generally feels weak. No current fever or chills since admission. Only infective symptom appears to be diarrhea but she reports no abdominal pain and diarrhea is not watery. Review of Systems Review of Systems: All systems reviewed & are unremarkable except as noted in Subjective Physical Exam Constitutional: WD/WN, vitals as above no acute distress Eyes: + anicteric sclerae; normal pupil size ENMT: external ear and nose normal, oropharynx normal Neck: trachea midline, no thyromegaly Respiratory: normal respiratory effort, lungs clear to auscultation Cardiovascular: Rate/Rhythm: regular rate and regular rhythm Extremities: + pedal edema (2+ ankles, 1+ pretibial, equal b/l) Gastrointestinal (Abdomen): Inspection/Auscultation: normal bowel sounds Percussion/Palpation: abdomen soft; abdomen nontender, no guarding and abdomen not rigid Musculoskeletal: no cyanosis or clubbing, extremities motor strength 5/5 Spine: + lumbar spinal tenderness Skin: no rashes, warm and dry Neurologic: moves all extremities and awake; not confused Genitourinary: no CVA tenderness Results & Data Results & Data ([facility]) Vital Signs (Past 12 Hours) Vital Signs Temp Pulse Pulse Resp BP Pulse Ox 03/12/22 11:03 86 18 93 03/12/22 08:00 105 H 03/12/22 07:03 85 18 93 03/12/22 04:16 36.8 C 81 18 96/61 L 96 03/12/22 01:36 84 18 91 03/12/22 00:44 36.8 C 105 H 20 97/63 L 96 PG Care Time/CCT Total # of Minutes Spent Total Time Spent with Patient: Total time spent is greater than 50% in coordination of care (as documented) at patient's floor/unit and/or counseling patient: Coding Level of Care Code 96430 Subseq Hosp Care Lvl 3 Diagnoses Acute respiratory failure with hypoxia J96.01 Acute exacerbation of CHF (congestive heart failure) I50.9 Heart failure type: unspecified Atrial fibrillation with rapid ventricular response I48.91 HTN (hypertension) I10 Hypertension type: primary hypertension Pneumonia J18.9 Kidney transplant recipient Z94.0 Diabetes mellitus type II, controlled E11.42; Z79.4 Diabetes mellitus complication detail: with polyneuropathy Diabetes mellitus complication status: with neurologic complications Diabetes mellitus long-term insulin use: with long-term use AV fistula I77.0 Hypercholesteremia E78.00 Hypothyroidism E03.9 Hypothyroidism type: unspecified Gout M1A.30X0 Chronicity: chronic Gout etiology: due to renal impairment Gout site: unspecified site Presence of tophus: without tophus Fall W19.XXXA (1) Acute exacerbation of CHF (congestive heart failure) Heart failure type: unspecified Qualified Code(s): I50.9 - Heart failure, unspecified (2) Gout Chronicity: chronic Gout etiology: due to renal impairment Gout site: unspecified site Presence of tophus: without tophus Qualified Code(s): 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 (3) Hypothyroidism Hypothyroidism type: unspecified Qualified Code(s): E03.9 - Hypothyroidism, unspecified (4) Diabetes mellitus type II, controlled Diabetes mellitus complication detail: with polyneuropathy Diabetes mellitus complication status: with neurologic complications 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
--- NOTE | 2022-03-12 13:52 | XRay Report ---
XR hip RT 2V w pelvis HISTORY: 76 years-old Female right knee pain, back pain s/p fall acute pain of the pelvis and right hip status post fall COMPARISON: CT abdomen pelvis 04/05/2020 TECHNIQUE: AP view of the pelvis with 2 views of the right hip FINDINGS: Lumbar levoscoliosis with advanced multilevel degenerative changes. There is at least mild osteoarthr itis of the hips. No acute fracture, dislocation or avascular necrosis. Arterial calcifications. Enla rged renal shadows again noted. Large abdominal wall hernia redemonstrated with bowel loops projected over the left thigh. IMPRESSION: No acute fracture or dislocation. ACT 112: Negative or not required by law. The above report was generated using voice recognition software. It may contain grammatical, syntax o r spelling errors. Electronically signed by: Clemente Bear M.D. 03/12/2022 1:51 PM
--- NOTE | 2022-03-12 13:53 | XRay Report ---
RIGHT KNEE 2 VIEWS CLINICAL HISTORY: Fall with right knee pain. FINDINGS: AP and crosstable lateral views of the right knee are obtained. No prior studies are availa ble for comparison at the time of dictation. The skeletal structures are osteopenic. No fracture is s een. There is mild tricompartmental degenerative joint space narrowing. Chondrocalcinosis is noted in the medial and lateral compartments. No large joint effusion is identified. A calcified fabella is i ncidentally noted. Soft tissue edema is present throughout the right leg. IMPRESSION: 1. Soft tissue swelling with no acute bony abnormality identified. 2. Osteopenia with degenerative change and chondrocalcinosis as above. Electronically signed by: Vinny Haley M.D. 03/12/2022 1:51 PM
--- NOTE | 2022-03-12 15:12 | CT Scan Report ---
CT SCAN OF THE LUMBAR SPINE WITHOUT IV CONTRAST CLINICAL HISTORY: Fall. Low back pain. COMPARISON STUDY: Lumbar spine radiographs dated 11/17/2020. MRI of the lumbar spine dated 10/30/2010. Abdominal CT dated 04/05/2020. TECHNIQUE: CT scan of the lumbar spine is performed from the lower thoracic spine to the sacrum. Imag es are reviewed in the axial, sagittal, and coronal planes. Contrast was not administered for this ex amination. A dose lowering technique was utilized adhering to the principles of ALARA. The examinatio n is significantly degraded by motion artifact and spinal scoliosis. CT DOSE: 747.48 mGycm FINDINGS: The skeletal structures are heterogeneously and osteopenic. Vertebral body height and align ment are maintained throughout the lumbar spine. There is no evidence of acute fracture or malalignme nt. Moderate lumbar levocurvature centered at L2. Large anterior and lateral marginal osteophytes are seen throughout. The transverse and spinous processes appear intact. There is no evidence of spondyl olysis. No lytic or blastic lesion is seen. Moderate to advanced disc space narrowing and posterior d isc osteophyte complexes are seen at all lumbar levels. Advanced facet arthropathy is seen in the mid to lower lumbar region. The visualized sacrum and bony pelvis appear intact. There is fatty atrophy of the paraspinous musculature. Atelectasis is noted at the lung bases. There is trace pleural effusi on on the left. The abdominal aorta is normal in caliber. No retroperitoneal lymphadenopathy is ident ified. IMPRESSION: 1. No acute bony abnormality is seen involving the lumbar spine. 2. Osteopenia with advanced lumbosacral spondylosis and scoliosis as above. ACT 112: Negative or not required by law. Dictated: 03/12/2022 1:32 PM Transcribed: 03/12/2022 2:39 PM Elizabeth [id number] [facility] Electronically signed by: Vinny Haley M.D. 03/12/2022 3:10 PM
[2022-03-12] MEDS ORDERED: VANCOMYCIN HCL 1,500 MG in SODIUM CHLORIDE 0.9% 500 ML IV SCH (16:00)
[2022-03-12] MEDS: FUROSEMIDE 40 MG/4 ML VIAL IV SCH (16:48)
[2022-03-12] MEDS: SIMVASTATIN 20 MG TAB PO SCH (20:38)
[2022-03-12] MEDS ORDERED: lisinopril 10 MG TAB PO SCH (21:00)
[2022-03-12] MEDS ORDERED: NON-FORMULARY MEDICATION (Lutein 20 mg Capsule) PO SCH (21:00)
--- NOTE | 2022-03-12 21:52 | Electrocardiogram Report ---
Test Reason : Blood Pressure : / mmHG Vent. Rate : 123 BPM Atrial Rate : 133 BPM P-R Int : 000 ms QRS Dur : 068 ms QT Int : 332 ms P-R-T Axes : 000 021 042 degrees QTc Int : 475 ms Poor data quality, interpretation may be adversely affected Atrial fibrillation with rapid ventricular response Low voltage QRS Nonspecific ST abnormality Abnormal ECG When compared with ECG of 13-MAY-2020 18:50, No significant change was found Confirmed by Will Breaux ([id number]) on 03/12/2022 9:52:22 PM Referred By: Edin Collins Confirmed By:Will Breaux
[2022-03-13] MEDS: PIPERACILLIN/TAZOBACTAM 4.5 GM in DEXTROSE 5% 100 ML IV SCH ×3 (02:27→17:05)
[2022-03-13] MEDS: LEVOTHYROXINE SODIUM 75 MCG TABLET PO SCH (05:56)
--- NOTE | 2022-03-13 06:31 | Electrocardiogram Report ---
Test Reason : Blood Pressure : / mmHG Vent. Rate : 086 BPM Atrial Rate : 089 BPM P-R Int : 000 ms QRS Dur : 076 ms QT Int : 406 ms P-R-T Axes : 000 079 063 degrees QTc Int : 485 ms Atrial fibrillation Prolonged QT Abnormal ECG When compared with ECG of 11-MAR-2022 19:19, Questionable change in QRS axis Confirmed by Will Breaux ([id number]) on 03/13/2022 6:30:44 AM Referred By: Edin Collins Confirmed By:Will Breaux
[2022-03-13] MEDS: BUDESONIDE 0.5 MG/2 ML VIAL (PULMICORT) NEB SCH ×2 (06:58→19:00)
[2022-03-13] MEDS: ALBUT/IPRATROP 3MG/0.5MG NEB 3 ML VIAL NEB SCH ×4 (06:58→19:00)
[2022-03-13 07:02] LABS: Hematocrit (blood only) 26.3 % (37-47); Hemoglobin 8.9 g/dL (12.0-16.0); Mean Corpuscular Hgb Conc 33.8 g/dL (32-36); Mean Corpuscular Volume 94.6 fL (80-100); RDW Coefficient of Variation 17.6 % (11.5-14.5); RDW Standard Deviation 60.8 fL (36.4-46.3); Red Blood Count 2.78 M/uL (4.2-5.4); White Blood Count 3.41 K/uL (4.8-10.8)
[2022-03-13 07:04] LABS: Mean Platelet Volume 10.1 fL (7.4-10.4); Platelet Count 81 K/uL (130-400)
[2022-03-13 07:20] LABS: BUN Creatinine Ratio 21.3 (10-20); Calcium 7.7 mg/dl (8.5-10.1); Creatinine Clr Calc Pharmacy 33.4 ml/min; Est GFR (African American) 35.1 ml/min; Est GFR (Non-African American) 30.3 ml/min; Potassium 3.7 mmol/L (3.5-5.1)
[2022-03-13 07:27] LABS: Basophils # (auto) 0.01 K/uL (0-0.2); Basophils % (auto) 0.3 %; Eosinophils # (auto) 0.02 K/uL (0-0.5); Eosinophils % (auto) 0.6 %; Lymphocytes # (auto) 0.59 K/uL (1.2-3.4); Lymphocytes % (auto) 17.3 %; Monocytes # (auto) 0.23 K/uL (0.11-0.59); Monocytes % (auto) 6.7 %; Neutrophils # (auto) 2.56 K/uL (1.4-6.5); Neutrophils % (auto) 75.1 %; Ovalocytes 1+; Polychromasia 1+; Tear Drop Cells 1+
[2022-03-13] MEDS: MYCOPHENOLATE MOFETIL 250 MG CAP PO SCH ×2 (07:45→20:44)
[2022-03-13] MEDS: TACROLIMUS 0.5 MG CAP PO SCH ×2 (07:45→20:44)
[2022-03-13] MEDS: dilTIAZem HCL 240 MG CAPCR PO SCH (07:46)
[2022-03-13] MEDS: METOPROLOL TARTRATE 25 MG TAB PO SCH ×2 (07:46→20:45)
[2022-03-13] MEDS: FOLIC ACID 1 MG TAB PO SCH (07:46)
[2022-03-13] MEDS: allopurinoL 300 MG TAB PO SCH ×2 (07:46→20:45)
[2022-03-13] MEDS: FAMOTIDINE 20 MG TAB PO SCH ×2 (07:46→20:45)
[2022-03-13] MEDS: MAGNESIUM OXIDE 400 MG TAB PO SCH ×2 (07:46→20:46)
[2022-03-13] MEDS: OMEGA-3 (PURIFIED FISH OIL) 1 GM CAP PO SCH ×2 (07:47→20:43)
[2022-03-13] MEDS: MULTIVITAMIN TAB PO SCH (07:47)
[2022-03-13] MEDS: CEROVITE ADV FORMULA TAB PO SCH ×2 (07:47→20:44)
[2022-03-13] MEDS: APIXABAN 5 MG TABLET PO SCH ×2 (07:49→20:43)
[2022-03-13] MEDS: INSULIN ASPART PER UNIT SC SCH ×4 (07:59→20:57)
[2022-03-13] MEDS ORDERED: VANCOMYCIN CONSULT ACTIVE PRN (08:59)
[2022-03-13] MEDS: FUROSEMIDE 40 MG/4 ML VIAL IV SCH ×2 (09:02→17:06)
[2022-03-13] MEDS ORDERED: VANCOMYCIN HCL 2,000 MG in SODIUM CHLORIDE 0.9% 500 ML IV ONE (09:30)
--- NOTE | 2022-03-13 10:14 | XRay Report ---
XR chest 2V PA/lateral CLINICAL HISTORY: PNA vs. pulmonary edema. COMPARISON STUDY: 03/11/2022 TECHNIQUE: 2 views of the chest FINDINGS: Frontal and lateral radiographs of the chest the heart size to again be enlarged. There is evidence f or bilateral hilar prominence in the presence of hilar adenopathy cannot be excluded on this study. M ild central vascular congestion is again seen. No definite alveolar edema is identified. There is no evidence for effusion bilaterally. No confluent alveolar opacities are seen. There is no acute osseou s pathology. IMPRESSION: 1. Mild cardiomegaly with bilateral hilar prominence is present. The presence of hilar adenopathy can not be excluded on this study and CT of the chest with contrast is recommended for further evaluation . 2. Mild central vascular congestion with no peripheral interstitial edema or alveolar opacities. ACT 112: Negative or not required by law. Electronically signed by: Abhijit Campos M.D. 03/13/2022 10:12 AM
--- NOTE | 2022-03-13 10:20 | Nephrology Consultation ---
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 Post transplant creatinine has been 1.0 (CKD stage IIIa/A3). Immunosuppressive regimen includes Tacrolimus 0.5 mg po BID, MMF 250 mg po BID (3) Acute exacerbation of CHF (congestive heart failure): * Continue diuresis * May benefit from weight or symptom adjusted diuretic dosing regimen as outpatient or change from Furosemide to Torsemide/Bumetanide * Recommend repeat echocardiogram to assess for change in LVEF or new WMA (4) Atrial fibrillation with rapid ventricular response: * HR now controlled w/ oral Metoprolol * On Apixaban (5) Cystitis: * Preliminary urine cx positive for Enterococcus * On IV Zosyn. Recommend consultation w/ Pharmacy for dosing in the setting of SHERLYN (6) Pancytopenia: * Monitor. If progressive, may need to discuss whether to transfer to transplant center for evaluation History of Present Illness Reason for Consultation: SHERLYN/CKD Attending Physician: Hamlet Murray MD History of Present Illness Mrs. Page is a 76 year old white female who is seen at the request of Dr. Murray for evaluation of SHERLYN/CKD. 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 Post transplant creatinine has been 1.0 (CKD stage IIIa/A3). Immunosuppressive regimen has consisted of Tacrolimus 0.5 mg po BID, MMF 250 mg po BID. In 07/16 Mrs. Page developed nephrotic syndrome. 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 Repeat biopsy revealed FSGS. Mrs. Page's medical history is also significant for HTN (Diltiazem 240 mg qAM, Furosemide 20 mg po BID, Lisinopril 10 mg po qHS, Metoprolol 37.5 mg po BID), hypercholesterolemia, IDDM, hypothyroidism and atrial fibrillation. She presented to [facility] EMD 03/12/22 with a two week history of low grade fever, nonproductive cough, dyspnea and relative hypotension. Testing for influenza, RSV and COVID were negative. Mrs. Page was noted to be 12 lbs abover her "EDW". CXR revealed CMG and pulmonary vascular congestion. ECG revealed atrial fibrillation w/ ventricular response of 123 bpm. Creatinine was mildly elevated at 1.3. Mrs. Page required BiPAP therapy. She received Furosemide 40 mg IV BID. HR improved w/ Metoprolol therapy. Currently she is breathing comfortably on RA w/ SaO2 94%. Although she has diuresed 1200 cc since admission, she remains net +1300 cc. Cr has risen to 1.6. Outpatient 01/19 Echocardiogram: LVEF 55 - 60%, mild MR/TR, borderline concentric LVH, no regional WMA. 03/12/22 urine culture is + for enterococcus. Allergies Allergy/AdvReac Type Severity Reaction Status Date / Time adhesive Allergy Intermediate ERYTHEMA Verified 03/11/22 19:50 WITH ADHESIVE TAPE, blisters Home Medications Medication Instructions Recorded Confirmed Type multivitamin 1 tab PO QAM #0 05/23/06 03/11/22 History omega 1-alq-vhi-fish oil 1,000 mg 1,000 mg PO BID #0 10/30/10 03/11/22 History (120 mg-180 mg) capsule (Fish Oil) folic acid 1 mg tablet 1 mg PO QAM #0 05/07/12 03/11/22 History lutein 20 mg capsule 20 mg PO QPM #0 11/11/14 03/11/22 History lancets 33 gauge (OneTouch Delica #100 ea 06/15/19 02/02/22 History Plus Lancet) tacrolimus 0.5 mg capsule, 0.5 mg PO Q12 cap 08/28/19 03/11/22 History immediate-release blood sugar diagnostic (ArterisTouch #100 ea 12/21/19 02/02/22 Rx Ultra Blue Test Strip) vit C,E,zinc,copper-vkkpc6o 250 1 cap PO BID 05/13/20 03/11/22 History mg-lutein 5 mg-zeaxanthin 1 mg capsule (Ocuvite Adult 50 Plus) mycophenolate mofetil 250 mg 250 mg PO Q12 cap 10/15/20 03/11/22 History capsule magnesium oxide 400 mg (241.3 mg 400 mg PO BID #180 tab 02/11/21 03/11/22 Rx magnesium) tablet insulin glargine 100 unit/mL (3 5 unit SUBCUT QAM #15 ml 03/13/21 03/11/22 Rx mL) subcutaneous pen (Lantus Solostar U-100 Insulin) simvastatin 20 mg tablet 20 mg PO HS #90 tab 06/29/21 03/11/22 Rx apixaban 5 mg tablet (Eliquis) 5 mg PO BID #180 tab 07/27/21 03/11/22 Rx furosemide 40 mg tablet 40 mg PO BID tab 07/30/21 03/11/22 History zoledronic acid 5 mg/100 mL in 5 mg IV YEARLY #100 ml 07/30/21 03/11/22 Rx mannitol 5 %-water intravenous piggybck (Reclast) metoprolol tartrate 25 mg tablet 37.5 mg PO BID 90 Days #270 tab 09/07/21 03/11/22 Rx diltiazem HCl 240 mg 240 mg PO QAM #90 cap 11/25/21 03/11/22 Rx capsule,extended release 24 hr (Cartia XT) famotidine 20 mg tablet 20 mg PO BID #60 tab 01/12/22 03/11/22 Rx allopurinol 300 mg tablet 300 mg PO UD 03/11/22 03/11/22 History levothyroxine 75 mcg tablet 75 mcg PO DAILYBB 03/11/22 03/11/22 History lisinopril 10 mg tablet 10 mg PO HS 03/11/22 03/11/22 History Patient History Medical History Atrial fibrillation DX 2013 > NO CARDIOVERSIONS Atrial fibrillation with RVR Bilateral leg edema Diabetic peripheral neuropathy associated with type 2 diabetes mellitus Gastric ulcer RESOLVED History of dysplastic nevus HTN (hypertension) Hypercholesteremia Hyperparathyroidism Hypothyroidism Long-term current use of tacrolimus Macular degeneration BILAT Mitral regurgitation Osteoporosis Paroxysmal atrial fibrillation Personal history of diabetic foot ulcer Polycystic kidney disease [facility] 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 History of tonsillectomy Hx of cholecystectomy Kidney transplant recipient RIGHT > 1995 Family History Mother Diabetes Father Kidney disease Hypertension Son Kidney disease Sister Kidney disease Social History Smoking Status: Never smoker Tobacco Type: Cigarettes Second Hand Exposure: No; Do You Dip or Chew Tobacco: No; Tobacco Cessation Education Requested by Patient: No Hx Alcohol Use: No Hx Substance Use: No Preferred Language: Indonesian Communication Ability: Effective Visual Impairment: No Limitations Crayon Sorting Machine Feeder Required: No Beliefs That Will Affect Care: None Current Living Situation: Family current occupational status: retired Other Information That Helps Us Care for You: No Feels Safe at Home: Yes Safety Concerns: Feels Safe At This Time Assistive Devices: Cane and Walker Assistive Devices Comment: glasses with pt Review of Systems Constitutional: + fever Eyes: no problem reported Ear, Nose, Mouth, Throat: no problem reported Respiratory: + cough and + dyspnea Cardiovascular: + palpitations and + edema; no chest pain Gastrointestinal: no abdominal pain, no nausea, no vomiting and no diarrhea/loose stools Genitourinary: no dysuria and no hematuria Musculoskeletal: no back pain Integumentary: no rash Neurologic: no confusion Physical Exam Constitutional: + overweight; not in distress Eyes: PERRL, conjunctivae normal, anicteric sclerae ENMT: external ear and nose normal, oropharynx normal Neck: trachea midline, no thyromegaly Respiratory: normal respiratory effort, lungs clear to auscultation Cardiovascular: Rate/Rhythm: regular rate and regular rhythm Extremities: + edema (2+ pretibial pitting edema) and + AV fistula (L BC AVF + bruit) Gastrointestinal (Abdomen): normal bowel sounds, soft, nontender, no hepatosplenomegaly Renal allograft palpable within RLQ. No overlying arterial bruit Neurologic: awake; not confused Results & Data ([facility]) Vital Signs (Past 12 Hours) Vital Signs Temp Pulse Pulse Pulse Resp BP Pulse Ox 03/13/22 07:30 36.6 C 89 20 108/68 94 03/13/22 06:58 96 H 16 94 03/13/22 02:55 36.4 C L 90 20 104/58 L 94 03/12/22 23:49 100 H 03/12/22 23:40 36.9 C 112 H 18 104/63 92 Laboratory Results Microbiology 03/12/22 06:25 Urine,Clean Catch Urine Culture - Preliminary Probable Enterococcus Laboratory Tests 07/23/21 01/20/22 03/11/22 10:12 11:17 19:40 WBC Hgb Hct Plt Count Sodium Potassium Chloride Carbon Dioxide BUN Creatinine 1.15 Glucose Calcium Albumin 3.0 L Urine Color Urine Appearance Urine pH Ur Specific [place] Urine Protein Urine Glucose (UA) Urine Ketones Urine RBC (Auto) Protein/Creatinin Ratio 4.1 H SARS-CoV-2 (PCR) Influenza Type A (PCR) Influenza Type B (PCR) RSV (RT-PCR) 03/11/22 03/12/22 03/13/22 19:55 06:25 06:24 WBC 3.41 L Hgb 8.9 L Hct 26.3 L Plt Count 81 L Sodium Potassium Chloride Carbon Dioxide BUN Creatinine Glucose Calcium Albumin Urine Color Yellow Urine Appearance Cloudy A Urine pH 5.0 Ur Specific [place] 1.017 Urine Protein 3+ H Urine Glucose (UA) Negative Urine Ketones Negative Urine RBC (Auto) 0-4 Protein/Creatinin Ratio SARS-CoV-2 (PCR) NEGATIVE Influenza Type A (PCR) Negative Influenza Type B (PCR) Negative RSV (RT-PCR) Negative 03/13/22 06:24 WBC Hgb Hct Plt Count Sodium 134 L Potassium 3.7 Chloride 102 Carbon Dioxide 23 BUN 35 H Creatinine 1.64 H Glucose 98 Calcium 7.7 L Albumin Urine Color Urine Appearance Urine pH Ur Specific [place] Urine Protein Urine Glucose (UA) Urine Ketones Urine RBC (Auto) Protein/Creatinin Ratio SARS-CoV-2 (PCR) Influenza Type A (PCR) Influenza Type B (PCR) RSV (RT-PCR) PG Care Time/CCT Total # of Minutes Spent Total Time Spent with Patient: Total time spent is greater than 50% in coordination of care (as documented) at patient's floor/unit and/or counseling patient: Coding Level of Care Code 75510 Inpt Consult Level 5 Diagnoses Acute kidney injury N17.9 Chronic kidney disease, stage III (moderate) N18.30 Acute exacerbation of CHF (congestive heart failure) I50.9 Heart failure type: unspecified Atrial fibrillation with rapid ventricular response I48.91 Cystitis N30.90 Pancytopenia D61.818 (1) Acute exacerbation of CHF (congestive heart failure) Heart failure type: unspecified Qualified Code(s): I50.9 - Heart failure, unspecified
[2022-03-13] MEDS: ACETAMINOPHEN 325 MG TAB PO PRN ×3 (10:40→22:36)
--- NOTE | 2022-03-13 12:50 | Ultrasound Report ---
PROCEDURE: US renal transplant w dop CLINICAL HISTORY: SHERLYN. Status post right pelvic kidney transplant COMPARISON: None. FINDINGS: The transplanted kidney demonstrates no hydronephrosis, nephrolithiasis or perinephric flu id collections. Resistive Index Range: 0.6 Velocity: 91 cm/s within the mid renal artery to the transplant Renal Transplant Site: Right lower quadrant IMPRESSION: Normal renal transplant sonogram. ACT 112: Negative or not required by law. Electronically signed by: Abhijit Campos M.D. 03/13/2022 12:48 PM
[2022-03-13 12:52] LABS: Adenovirus F 40/41 PCR Not Detected (NotDetected); Astrovirus PCR Not Detected (NotDetected); Campylobacter PCR Not Detected (NotDetected); Clostridium diff Toxin A/B PCR Not Detected (NotDetected); Cryptosporidium PCR Not Detected (NotDetected); Cyclospora cayetanensis PCR Not Detected (NotDetected); Entamoeba histolytica PCR Not Detected (NotDetected); Enteroaggregative E.coli(EAEC) Not Detected (NotDetected); Enteropathogenic E.coli (EPEC) Not Detected (NotDetected); Enterotoxigenic E.coli (ETEC) Not Detected (NotDetected); Giardia lamblia PCR Not Detected (NotDetected); Plesiomonas shigelloides PCR Not Detected (NotDetected); Rotavirus A PCR Not Detected (NotDetected); Salmonella PCR Not Detected (NotDetected); Sapovirus PCR Not Detected (NotDetected); Shiga-like Toxin E.coli (STEC) Not Detected (NotDetected); Shigella/Enteroinvasive E.coli Not Detected (NotDetected); Vibrio cholerae PCR Not Detected (NotDetected); Vibrio species PCR Not Detected (NotDetected); Yersinia enterocolitica PCR Not Detected (NotDetected)
[2022-03-13 13:06] LABS: Norovirus GI/GII PCR DETECTED (NotDetected)
--- NOTE | 2022-03-13 14:10 | Ultrasound Report ---
US venous doppler LE LT CLINICAL HISTORY: left leg swelling COMPARISON: None available at the time of this dictation. TECHNIQUE: Left lower extremity real-time compression venous ultrasound with Color Doppler imaging. Utilizing real-time ultrasonic imaging multiple real time high-resolution ultrasonic images with comp ression and noncompression maneuvers of the deep venous system in addition to color doppler imaging w ere performed from the common femoral vein through the proximal calf veins. FINDINGS: This is a limited examination due to the patient's body habitus. Patient was unable to turn for sagittal imaging. Currently there is normal compressibility of the deep venous system from the common femoral vein thro ugh the proximal calf veins. No current evidence of acute thrombosis is identified. There is a popliteal cyst present measuring 3.3 x 2.8 x 1.6 cm. Impression: No evidence of deep venous thrombus. Limited examination due to body habitus. ACT 112: Negative or not required by law. Electronically signed by: Abhijit Campos M.D. 03/13/2022 2:09 PM
--- NOTE | 2022-03-13 14:11 | XRay Report ---
XR knee LT 1 or 2V routine CLINICAL HISTORY: left knee pain after fall. COMPARISON STUDY: No previous studies for comparison. TECHNIQUE: 2 left knee views FINDINGS: Bones: There is no evidence for an acute fracture or dislocation. There is no lytic or blastic lesion . Joints: The joint spaces are maintained. There is no evidence for an intra-articular effusion. The humberto kylah are in anatomic alignment. Soft tissues: There is no focal soft tissue abnormality. There is no radiopaque foreign body. IMPRESSION: 1. No acute osseous pathology. ACT 112: Negative or not required by law. Electronically signed by: Abhijit Campos M.D. 03/13/2022 2:09 PM
[2022-03-13] MEDS: FEXOFENADINE HCL 180 MG TAB PO SCH (15:03)
--- NOTE | 2022-03-13 15:27 | Hospitalist Progress Note ---
Date of Service March 13, 2022 Assessment & Plan (1) Norovirus: Plan: Suspect this is the cause of her acute deterioration however given renal transplant certainly will need to continue to treat urine culture even if asymptomatic. Treatment for norovirus is supportive care alone. Diarrhea improving per patient. (2) Acute kidney injury: Plan: Cr continues to rise but she is still significantly hypervolemic on exam. Given renal transplant will consult nephrology for help with fluid management. (3) Pancytopenia: Plan: Suspect as a result of norovirus causing cell line depression in setting of tacrolimus and mycophenolate. Will get tacrolimus and mycophenolate levels with AM labs however historically have been normal and no recent dose change and this is a send out test. Peripheral smear with AM labs and consult hematology to assess for alternate cause. (4) UTI (urinary tract infection): Plan: Unclear is symptomatic vs. asymptomatic but given renal transplant will need to treat regardless. Awaiting final culture and sensitivities but probably enterococcus. Previously she grew enterococcus faecalis in October in urine resistant to tetracyclines. Continue Zosyn for this and questionable pneumonia. Avoid wheatley catheter is possible for urine output. (5) Pneumonia: Plan: Questionable diagnosis - suspect this is more pulmonary edema which appears to be improving on CXR today. Continue Zosyn IV begun in ED. Can discontinue vancomycin since MRSA nose swab negative. Duonebs every 4 hours while awake and every 2 hours when necessary. (6) Coag negative Staphylococcus bacteremia: Plan: Suspect this is a contaminant given norovirus fits her symptoms as cause for her acute illness in addition to positive urine culture (different bacteria to blood culture). Initially restarted vancomycin as GPC on blood culture this morning but discontinued after full culture back. Repeat blood cultures today (7) Acute exacerbation of CHF (congestive heart failure): Plan: Elevated troponin/CHF exacerbation/atrial fibrillation- Patient received furosemide 40 mg IV in ED, will continue IV BID. Mild bump in Cr however history, weight and CXR consistent with being hypervolemic. Appreciate cardiology and nephrology review in addition. Continue apixaban 5 mg p.o. twice daily, diltiazem extended release 240 mg every morning and Toprol tartrate 37.5 mg p.o. twice daily. Lisinopril d/c due to low normal BP by nephrology. (8) Bilateral leg edema: Plan: Lasix as above. US venous doppler left extremity as larger than right, negative for DVT. (9) Acute respiratory failure with hypoxia: Plan: Acute respiratory failure with hypoxia/CHF exacerbation/pneumonia. Treat both underlying processes Patient initially required BiPAP, but was able to be taken off BiPAP and placed on mask 24% on admission. Now on room air. (10) Fall: Plan: Lumbar spine CT and hip and b/l knee XR - without fractures (11) Atrial fibrillation with rapid ventricular response: Plan: Rate controlled on diltiazem and metoprolol Anticoagulation with apixaban as above (12) HTN (hypertension): Plan: See above (13) Kidney transplant recipient: Plan: Continue immunosuppressive's, CellCept and tacrolimus. Levels are send out in AM. (14) Diabetes mellitus type II, controlled: Plan: Hold insulin glargine [address] on Accu-Cheks before meals and at bedtime with NovoLog coverage per scale HbA1C 6.0 (15) AV fistula: Plan: Left upper extremity AV fistula with palpable thrill (16) Hypercholesteremia: Plan: Continue simvastatin 20 mg daily (17) Hypothyroidism: Plan: TSH 5.18 in November Continue levothyroxine 75 mcg daily (18) Gout: Plan: Continue allopurinol Plan: VTE Prophylaxis - Eliquis Diet - heart healthy, T2DM Disposition - continued admission to PCU Admission and Anticipated Discharge Date Admission Date: March 11, 2022 Subjective Significant leg edema persists, Left > right which patient notes she has never had this previously. Continued back pain. Pancytopenia continuing on labs today Shortness of breath improved. Leg swelling similar to admission. No chest pain. I&Os inaccurate as patient unable to get all urine in bed goins and wish to avoid wheatley catheter in setting of positive urine culture. Review of Systems Review of Systems: All systems reviewed & are unremarkable except as noted in Subjective Physical Exam Constitutional: WD/WN, vitals as above no acute distress Eyes: + anicteric sclerae; normal pupil size ENMT: external ear and nose normal, oropharynx normal Neck: trachea midline, no thyromegaly Respiratory: normal respiratory effort, lungs clear to auscultation Cardiovascular: Rate/Rhythm: regular rate and regular rhythm Extremities: + pedal edema (2+ pre-tibial b/l L > R circumference) Gastrointestinal (Abdomen): Inspection/Auscultation: normal bowel sounds Percussion/Palpation: abdomen soft; abdomen nontender, no guarding and abdomen n ot rigid Musculoskeletal: no cyanosis or clubbing, extremities motor strength 5/5 Spine: + lumbar spinal tenderness Skin: no rashes, warm and dry no pallor Neurologic: moves all extremities and awake; not confused Genitourinary: no CVA tenderness Results & Data Results & Data ([facility]) Vital Signs (Past 12 Hours) Vital Signs Temp Pulse Pulse Pulse Resp BP Pulse Ox 03/13/22 14:09 91 H 18 93 03/13/22 11:30 36.6 C 65 20 126/79 93 03/13/22 07:30 36.6 C 89 20 108/68 94 03/13/22 06:58 96 H 16 94 PG Care Time/CCT Total # of Minutes Spent Total Time Spent with Patient: Total time spent is greater than 50% in coordination of care (as documented) at patient's floor/unit and/or counseling patient: Coding Level of Care Code 31695 Subseq Hosp Care Lvl 3 Diagnoses Acute respiratory failure with hypoxia J96.01 Acute exacerbation of CHF (congestive heart failure) I50.9 Heart failure type: unspecified Pneumonia J18.9 Fall W19.XXXA Atrial fibrillation with rapid ventricular response I48.91 HTN (hypertension) I10 Hypertension type: primary hypertension Kidney transplant recipient Z94.0 Diabetes mellitus type II, controlled E11.42; Z79.4 Diabetes mellitus complication detail: with polyneuropathy Diabetes mellitus complication status: with neurologic complications Diabetes mellitus senior living insulin use: with senior living use AV fistula I77.0 Hypercholesteremia E78.00 Hypothyroidism E03.9 Hypothyroidism type: unspecified Gout M1A.30X0 Chronicity: chronic Gout etiology: due to renal impairment Gout site: unspecified site Presence of tophus: without tophus Pancytopenia D61.818 Norovirus A08.11 Coag negative Staphylococcus bacteremia R78.81; B95.7 Acute kidney injury N17.9 UTI (urinary tract infection) N39.0 Bilateral leg edema R60.0 (1) Acute exacerbation of CHF (congestive heart failure) Heart failure type: unspecified Qualified Code(s): I50.9 - Heart failure, unspecified (2) Gout Chronicity: chronic Gout etiology: due to renal impairment Gout site: unspecified site Presence of tophus: without tophus Qualified Code(s): 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 (3) Hypothyroidism Hypothyroidism type: unspecified Qualified Code(s): E03.9 - Hypothyroidism, unspecified (4) Diabetes mellitus type II, controlled Diabetes mellitus complication detail: with polyneuropathy Diabetes mellitus complication status: with neurologic complications Diabetes mellitus senior living insulin use: with senior living use Qualified Code(s): E11.42 - Type 2 diabetes mellitus with diabetic polyneuropathy; Z79.4 - longterm (current) use of insulin (5) HTN (hypertension) Hypertension type: primary hypertension Qualified Code(s): I10 - Essential (primary) hypertension
[2022-03-13] MEDS: SIMVASTATIN 20 MG TAB PO SCH (20:46)
[2022-03-14] MEDS: PIPERACILLIN/TAZOBACTAM 4.5 GM in DEXTROSE 5% 100 ML IV SCH ×3 (02:54→17:08)
[2022-03-14 06:16] LABS: Basophils # (auto) 0.02 K/uL (0-0.2); Basophils % (auto) 0.5 %; Eosinophils # (auto) 0.16 K/uL (0-0.5); Eosinophils % (auto) 4.3 %; Hematocrit (blood only) 21.5 % (37-47); Hemoglobin 7.3 g/dL (12.0-16.0); Lymphocytes % (auto) 18.9 %; Mean Corpuscular Hemoglobin 32.2 pg (25-34); Mean Corpuscular Volume 94.7 fL (80-100); Mean Platelet Volume 11.3 fL (7.4-10.4); Monocytes # (auto) 0.29 K/uL (0.11-0.59); Monocytes % (auto) 7.8 %; Neutrophils # (auto) 2.54 K/uL (1.4-6.5); Neutrophils % (auto) 68.5 %; Platelet Count 114 K/uL (130-400); RDW Coefficient of Variation 17.7 % (11.5-14.5); RDW Standard Deviation 60.4 fL (36.4-46.3); Red Blood Count 2.27 M/uL (4.2-5.4); White Blood Count 3.71 K/uL (4.8-10.8)
[2022-03-14] MEDS: LEVOTHYROXINE SODIUM 75 MCG TABLET PO SCH (06:31)
[2022-03-14 06:41] LABS: BUN Creatinine Ratio 19.6 (10-20); Calcium 7.6 mg/dl (8.5-10.1); Creatinine Clr Calc Pharmacy 29.8 ml/min; Est GFR (African American) 30.5 ml/min; Est GFR (Non-African American) 26.3 ml/min; Potassium 3.8 mmol/L (3.5-5.1)
[2022-03-14 06:59] LABS: Ovalocytes 1+; Polychromasia 1+; Tear Drop Cells 1+
[2022-03-14] MEDS: ALBUT/IPRATROP 3MG/0.5MG NEB 3 ML VIAL NEB SCH ×4 (07:36→19:02)
[2022-03-14] MEDS: BUDESONIDE 0.5 MG/2 ML VIAL (PULMICORT) NEB SCH ×2 (07:37→19:02)
--- NOTE | 2022-03-14 07:40 | Electrocardiogram Report ---
Test Reason : Blood Pressure : / mmHG Vent. Rate : 090 BPM Atrial Rate : 091 BPM P-R Int : 000 ms QRS Dur : 072 ms QT Int : 386 ms P-R-T Axes : 000 081 064 degrees QTc Int : 472 ms Atrial fibrillation Abnormal ECG When compared with ECG of 12-MAR-2022 05:45, No significant change was found Confirmed by Tom Cunningham ([id number]) on 03/14/2022 7:39:42 AM Referred By: Hamlet Murray Confirmed By:Kristopher Cunningham
[2022-03-14] MEDS: INSULIN ASPART PER UNIT SC SCH ×4 (07:48→20:44)
[2022-03-14] MEDS ORDERED: SODIUM CHLORIDE 0.9% 250 ML IV PRN (08:00)
[2022-03-14] MEDS: FOLIC ACID 1 MG TAB PO SCH (08:20)
[2022-03-14] MEDS: MAGNESIUM OXIDE 400 MG TAB PO SCH ×2 (08:20→20:39)
[2022-03-14] MEDS: METOPROLOL TARTRATE 25 MG TAB PO SCH ×2 (08:20→20:40)
[2022-03-14] MEDS: FAMOTIDINE 20 MG TAB PO SCH ×2 (08:20→20:39)
[2022-03-14] MEDS: TACROLIMUS 0.5 MG CAP PO SCH ×2 (08:21→20:40)
[2022-03-14] MEDS: MYCOPHENOLATE MOFETIL 250 MG CAP PO SCH ×2 (08:21→20:40)
[2022-03-14] MEDS: dilTIAZem HCL 240 MG CAPCR PO SCH (08:21)
[2022-03-14] MEDS: CEROVITE ADV FORMULA TAB PO SCH ×2 (08:21→20:40)
[2022-03-14] MEDS: MULTIVITAMIN TAB PO SCH (08:21)
[2022-03-14] MEDS: APIXABAN 5 MG TABLET PO SCH ×2 (08:22→20:57)
[2022-03-14] MEDS: OMEGA-3 (PURIFIED FISH OIL) 1 GM CAP PO SCH ×2 (08:22→20:41)
[2022-03-14] MEDS: allopurinoL 300 MG TAB PO SCH ×2 (08:22→20:40)
[2022-03-14] MEDS: FEXOFENADINE HCL 180 MG TAB PO SCH (08:22)
[2022-03-14] MEDS: FUROSEMIDE 40 MG/4 ML VIAL IV SCH (08:23)
[2022-03-14 09:00] LABS: Reticulocyte % 1.8 % (0.5-2.0); Reticulocytes # 0.05 10^6/uL (0.02-0.10)
[2022-03-14] MEDS ORDERED: VANCOMYCIN HCL 1,000 MG in SODIUM CHLORIDE 0.9% 250 ML IV SCH (09:00)
--- NOTE | 2022-03-14 09:01 | Nephrology Progress Note ---
Date of Service March 14, 2022 Assessment & Plan (1) Acute kidney injury: Plan: * SHERLYN/CKD likely reflective of impaired renal perfusion (CHF) in the setting of LORRAINE inhibitor therapy * Hold LORRAINE due to relative hypotension * Volume status has improved. Will change from IV to po Furosemide 40 mg BID * 03/13/22 Renal US: renal allograft negative for hydronephrosis/stone/mass * Monitor PRP, UO * Tacrolimus level is pending (2) Chronic kidney disease, stage III (moderate): Plan: * [employer] [facility] [place] [facility] [place]. Post transplant creatinine has been 1.0 (CKD stage GIIIa/A3). Immunosuppressive regimen includes Tacrolimus 0.5 mg po BID, MMF 250 mg po BID (3) Acute exacerbation of CHF (congestive heart failure): Plan: * Clinically improved. Will change from IV to po Furosemide * May benefit from weight or symptom adjusted diuretic dosing regimen as outpatient or change from Furosemide to Torsemide/Bumetanide * Recommend repeat echocardiogram to assess for change in LVEF or new WMA (4) Atrial fibrillation with rapid ventricular response: Plan: * HR now controlled w/ oral Metoprolol * On Apixaban (5) Cystitis: Plan: * Urine cx positive for Enterococcus - PCN sensitive * On IV Zosyn. Recommend consultation w/ Pharmacy for dosing in the setting of SHERLYN (6) Diarrhea: Plan: * Stool + for Norovirus (7) Pancytopenia: Plan: * WBC and PLT # improved. Patient has progressive anemia * Pathology peripheral smear review pending * Will check LDH, haptoglobin * Will administer one dose ALIZA today * Possibly related to Norovirus Admission and Anticipated Discharge Date Admission Date: March 11, 2022 Subjective Mrs. Page was evaluated in her hospital room this morning. She was breathing comfortably flat in bed on RA. She denied angina, palpitations or uremic symptoms Review of Systems Constitutional: + fever Eyes: no problem reported Ear, Nose, Mouth, Throat: no problem reported Respiratory: + cough and + dyspnea Cardiovascular: + palpitations and + edema; no chest pain Gastrointestinal: no abdominal pain, no nausea, no vomiting and no diarrhea/loose stools Genitourinary: no dysuria and no hematuria Musculoskeletal: no back pain Integumentary: no rash Neurologic: no confusion Physical Exam Constitutional: + overweight; not in distress Eyes: PERRL, conjunctivae normal, anicteric sclerae ENMT: external ear and nose normal, oropharynx normal Neck: trachea midline, no thyromegaly Respiratory: normal respiratory effort, lungs clear to auscultation Cardiovascular: Rate/Rhythm: regular rate and regular rhythm Extremities: + edema (2+ pretibial pitting edema) and + AV fistula (L BC AVF + bruit) Gastrointestinal (Abdomen): normal bowel sounds, soft, nontender, no hepatosplenomegaly Neurologic: awake; not confused Results & Data ([facility]) Vital Signs (Past 12 Hours) Vital Signs Temp Pulse Pulse Resp BP Pulse Ox 03/14/22 07:37 77 18 92 03/14/22 07:16 36.5 C 75 18 117/64 93 03/14/22 06:59 72 03/14/22 04:07 36.6 C 69 20 101/68 95 03/13/22 23:59 94 H 03/13/22 22:48 36.6 C 107 H 18 105/68 97 Laboratory Results Laboratory Tests 03/14/22 03/14/22 05:50 05:50 WBC 3.71 L Hgb 7.3 L Hct 21.5 L Plt Count 114 L Sodium 136 Potassium 3.8 Chloride 104 Carbon Dioxide 25 BUN 36 H Creatinine 1.84 H Glucose 97 Calcium 7.6 L Laboratory Tests 03/14/22 08:16 Transferrin % Sat 48 PG Care Time/CCT Total # of Minutes Spent Total Time Spent with Patient: Total time spent is greater than 50% in coordination of care (as documented) at patient's floor/unit and/or counseling patient: Coding Level of Care Code 04989 Subseq Hosp Care Lvl 3 Diagnoses Acute kidney injury N17.9 Chronic kidney disease, stage III (moderate) N18.30 Acute exacerbation of CHF (congestive heart failure) I50.9 Heart failure type: unspecified Atrial fibrillation with rapid ventricular response I48.91 Cystitis N30.90 Pancytopenia D61.818 Diarrhea R19.7 (1) Acute exacerbation of CHF (congestive heart failure) Heart failure type: unspecified Qualified Code(s): I50.9 - Heart failure, unspecified
[2022-03-14 09:15] LABS: Iron 81 mcg/dl (35-150); Total Iron Binding Cap Calc 169 mcg/dl (250-450); Transferrin (FE) Percent Satur 48 % (15-50); Unsaturated Iron Binding Cap 88 mcg/dl (155-355)
[2022-03-14 09:39] LABS: Folate (Folic Acid) > 22.30 ng/ml (>5.38)
[2022-03-14 09:40] LABS: Vitamin B12 1486 pg/ml (180-914)
[2022-03-14] MEDS ORDERED: EPOETIN ALFA 10,000 UNITS/ML VIAL SQ ONE (11:10)
--- NOTE | 2022-03-14 12:16 | XCELERA ---
[id number] \\[id number]___[id number]
--- NOTE | 2022-03-14 14:53 | Hospitalist Progress Note ---
Date of Service March 14, 2022 Assessment & Plan (1) Norovirus: Plan: Suspect this is the cause of her acute deterioration however given renal transplant certainly will need to continue to treat urine culture even if asymptomatic. Treatment for norovirus is supportive care alone. Diarrhea improving per patient. Diarrhea improving. (2) Acute kidney injury: Plan: Cr continues to rise. Furosemide reduced to 40mg PO BID today by nephrology as pulmonary edema essentially resolved - discussed with Dr Wilkinson. Will continue to trend BMP with reduced Diuretics and off ACEi (3) Pancytopenia: Plan: Suspect as a result of norovirus causing cell line depression in setting of tacrolimus and mycophenolate. Tacrolimus and mycophenolate levels pending. Peripheral smear with AM labs and consult hematology to assess for alternate cause. Iron, B12 and folate levels normal. Transfuse 2 units packed RBCs today and repeat CBC tomorrow. FOB pending (4) UTI (urinary tract infection): Plan: Unclear is symptomatic vs. asymptomatic but given renal transplant will need to treat regardless. Awaiting final culture and sensitivities but probably enterococcus. Previously she grew enterococcus faecalis in October in urine resistant to tetracyclines. Continue Zosyn for this and questionable pneumonia. Avoid wheatley catheter is possible for urine output. (5) Pneumonia: Plan: Questionable diagnosis - suspect this is more pulmonary edema which appears to be improving on CXR today. Continue Zosyn IV begun in ED. Can discontinue vancomycin since MRSA nose swab negative. Duonebs every 4 hours while awake and every 2 hours when necessary. (6) Coag negative Staphylococcus bacteremia: Plan: Suspect this is a contaminant given norovirus fits her symptoms as cause for her acute illness in addition to positive urine culture (different bacteria to blood culture). Initially restarted vancomycin as GPC on blood culture this morning but dis continued after full culture back. Repeat blood cultures negative @ 24 hours (7) Acute exacerbation of CHF (congestive heart failure): Plan: Elevated troponin/CHF exacerbation/atrial fibrillation- Patient received furosemide 40 mg IV in ED, will continue IV BID. Mild bump in Cr however history, weight and CXR consistent with being hypervolemic. Appreciate cardiology and nephrology review in addition. Continue apixaban 5 mg p.o. twice daily, diltiazem extended release 240 mg every morning and Toprol tartrate 37.5 mg p.o. twice daily. Lisinopril d/c due to low normal BP by nephrology. (8) Bilateral leg edema: Plan: Lasix as above. US venous doppler left extremity as larger than right, negative for DVT. (9) Acute respiratory failure with hypoxia: Plan: Secondary to pulmonary edema. Resolved (10) Fall: Plan: Lumbar spine CT and hip and b/l knee XR - without fractures (11) Atrial fibrillation with rapid ventricular response: Plan: Rate controlled on diltiazem and metoprolol Anticoagulation with apixaban as above (12) HTN (hypertension): Plan: See above (13) Kidney transplant recipient: Plan: Continue immunosuppressive's, CellCept and tacrolimus. Levels are send out in AM. (14) Diabetes mellitus type II, controlled: Plan: Hold insulin glargine [address] on Accu-Cheks before meals and at bedtime with NovoLog coverage per scale HbA1C 6.0 (15) AV fistula: Plan: Left upper extremity AV fistula with palpable thrill (16) Hypercholesteremia: Plan: Continue simvastatin 20 mg daily (17) Hypothyroidism: Plan: TSH 5.18 in November Continue levothyroxine 75 mcg daily (18) Gout: Plan: Continue allopurinol Plan: VTE Prophylaxis - Eliquis Diet - heart healthy, T2DM Disposition - continued admission to PCU Admission and Anticipated Discharge Date Admission Date: March 11, 2022 Subjective Cr continues to increase from 1.64 -> 1.84 and Hgb dropped to 7.3. Patient feels more tired this morning but no chest pain, shortness of breath or dizziness. PT/OT assessments pending. No melena or bright red blood in stool. Currently on room air. No further diarrhea. Review of Systems Review of Systems: All systems reviewed & are unremarkable except as noted in Subjective Physical Exam Constitutional: WD/WN, vitals as above no acute distress Eyes: + anicteric sclerae; normal pupil size ENMT: external ear and nose normal, oropharynx normal Neck: trachea midline, no thyromegaly Respiratory: normal respiratory effort, lungs clear to auscultation Cardiovascular: Rate/Rhythm: regular rate and regular rhythm Extremities: + pedal edema (2+ pre-tibial b/l L > R circumference) Gastrointestinal (Abdomen): Inspection/Auscultation: normal bowel sounds Percussion/Palpation: abdomen soft; abdomen nontender, no guarding and abdomen not rigid Musculoskeletal: no cyanosis or clubbing, extremities motor strength 5/5 Spine: + lumbar spinal tenderness Skin: no rashes, warm and dry no pallor Neurologic: moves all extremities and awake; not confused Genitourinary: no CVA tenderness Results & Data Results & Data ([facility]) Vital Signs (Past 12 Hours) Vital Signs Temp Pulse Pulse Resp BP BP Pulse Ox 03/14/22 14:20 96 H 16 102/64 96 03/14/22 14:19 36.4 C L 89 14 102/64 94 03/14/22 14:18 78 16 102/64 95 03/14/22 13:55 36.5 C 74 16 106/66 94 03/14/22 13:40 36.5 C 77 16 127/74 95 03/14/22 13:15 36.3 C L 84 16 127/75 95 03/14/22 11:29 36.6 C 79 18 106/72 95 03/14/22 11:14 81 18 94 03/14/22 07:37 77 18 92 03/14/22 07:16 36.5 C 75 18 117/64 93 03/14/22 06:59 72 03/14/22 04:07 36.6 C 69 20 101/68 95 PG Care Time/CCT Total # of Minutes Spent Total Time Spent with Patient: Total time spent is greater than 50% in coordination of care (as documented) at patient's floor/unit and/or counseling patient: Coding Level of Care Code 31094 Subseq Hosp Care Lvl 3 Diagnoses Norovirus A08.11 Acute kidney injury N17.9 Pancytopenia D61.818 UTI (urinary tract infection) N39.0 Pneumonia J18.9 Coag negative Staphylococcus bacteremia R78.81; B95.7 Acute exacerbation of CHF (congestive heart failure) I50.9 Heart failure type: unspecified Bilateral leg edema R60.0 Acute respiratory failure with hypoxia J96.01 Fall W19.XXXA Atrial fibrillation with rapid ventricular response I48.91 HTN (hypertension) I10 Hypertension type: primary hypertension Kidney transplant recipient Z94.0 Diabetes mellitus type II, controlled E11.42; Z79.4 Diabetes mellitus complication detail: with polyneuropathy Diabetes mellitus complication status: with neurologic complications Diabetes mellitus pulp mixer insulin use: with half-way use AV fistula I77.0 Hypercholesteremia E78.00 Hypothyroidism E03.9 Hypothyroidism type: unspecified Gout M1A.30X0 Chronicity: chronic Gout etiology: due to renal impairment Gout site: unspecified site Presence of tophus: without tophus (1) Acute exacerbation of CHF (congestive heart failure) Heart failure type: unspecified Qualified Code(s): I50.9 - Heart failure, unspecified (2) Gout Chronicity: chronic Gout etiology: due to renal impairment Gout site: unspecified site Presence of tophus: without tophus Qualified Code(s): 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 (3) Hypothyroidism Hypothyroidism type: unspecified Qualified Code(s): E03.9 - Hypothyroidism, unspecified (4) Diabetes mellitus type II, controlled Diabetes mellitus complication detail: with polyneuropathy Diabetes mellitus complication status: with neurologic complications Diabetes mellitus half-way insulin use: with pulp mixer use Qualified Code(s): E11.42 - Type 2 diabetes mellitus with diabetic polyneuropathy; Z79.4 - [place] (current) use of insulin (5) HTN (hypertension) Hypertension type: primary hypertension Qualified Code(s): I10 - Essential (primary) hypertension
[2022-03-14] MEDS: FUROSEMIDE 40 MG TAB PO SCH (17:09)
[2022-03-14] MEDS: SIMVASTATIN 20 MG TAB PO SCH (20:41)
[2022-03-15] MEDS: ACETAMINOPHEN 325 MG TAB PO PRN ×3 (01:50→22:36)
[2022-03-15] MEDS: PIPERACILLIN/TAZOBACTAM 4.5 GM in DEXTROSE 5% 100 ML IV SCH (02:55)
[2022-03-15] MEDS: LEVOTHYROXINE SODIUM 75 MCG TABLET PO SCH (06:22)
[2022-03-15] MEDS: ALBUT/IPRATROP 3MG/0.5MG NEB 3 ML VIAL NEB SCH ×2 (07:02→11:05)
[2022-03-15] MEDS: BUDESONIDE 0.5 MG/2 ML VIAL (PULMICORT) NEB SCH ×2 (07:03→19:52)
[2022-03-15 07:17] LABS: BUN Creatinine Ratio 19.3 (10-20); Calcium 8.1 mg/dl (8.5-10.1); Est GFR (African American) 34.6 ml/min; Est GFR (Non-African American) 29.8 ml/min; Potassium 3.8 mmol/L (3.5-5.1)
[2022-03-15 07:21] LABS: Hematocrit (blood only) 25.7 % (37-47); Hemoglobin 8.9 g/dL (12.0-16.0); Mean Corpuscular Hemoglobin 31.8 pg (25-34); Mean Corpuscular Hgb Conc 34.6 g/dL (32-36); Mean Corpuscular Volume 91.8 fL (80-100); Mean Platelet Volume 10.1 fL (7.4-10.4); Platelet Count 118 K/uL (130-400); RDW Standard Deviation 60.7 fL (36.4-46.3); White Blood Count 6.05 K/uL (4.8-10.8)
--- NOTE | 2022-03-15 07:21 | Communication Note ---
Date of Service: March 15, 2022 Nursing informed me of area of ecchymosis of medial humerus. Held 1 dose of Eliquis. I later assessed and confirmed the area of ecchymosis. The area is mar ked in pen for comparison. On palpation, there was no hematoma palpated.
[2022-03-15] MEDS: allopurinoL 300 MG TAB PO SCH ×2 (08:28→20:27)
[2022-03-15] MEDS: METOPROLOL TARTRATE 25 MG TAB PO SCH ×2 (08:28→20:21)
[2022-03-15] MEDS: FAMOTIDINE 20 MG TAB PO SCH ×2 (08:28→20:27)
[2022-03-15] MEDS: CEROVITE ADV FORMULA TAB PO SCH ×2 (08:28→20:25)
[2022-03-15] MEDS: FOLIC ACID 1 MG TAB PO SCH (08:29)
[2022-03-15] MEDS: MAGNESIUM OXIDE 400 MG TAB PO SCH ×2 (08:29→20:25)
[2022-03-15] MEDS: TACROLIMUS 0.5 MG CAP PO SCH ×2 (08:29→20:26)
[2022-03-15] MEDS: OMEGA-3 (PURIFIED FISH OIL) 1 GM CAP PO SCH ×2 (08:29→20:24)
[2022-03-15] MEDS: FUROSEMIDE 40 MG TAB PO SCH ×2 (08:29→16:59)
[2022-03-15] MEDS: MULTIVITAMIN TAB PO SCH (08:29)
[2022-03-15] MEDS: dilTIAZem HCL 240 MG CAPCR PO SCH (08:30)
[2022-03-15] MEDS: MYCOPHENOLATE MOFETIL 250 MG CAP PO SCH ×2 (08:30→20:24)
[2022-03-15] MEDS: INSULIN ASPART PER UNIT SC SCH ×4 (08:34→20:40)
[2022-03-15] MEDS: FEXOFENADINE HCL 180 MG TAB PO SCH (08:37)
--- NOTE | 2022-03-15 08:42 | Nephrology Progress Note ---
Date of Service March 15, 2022 Assessment & Plan (1) Acute kidney injury: Plan: * SHERLYN/CKD likely reflective of impaired renal perfusion (CHF) in the setting of LORRAINE inhibitor therapy * 03/13/22 Renal US: renal allograft negative for hydronephrosis/stone/mass * 2U PRBC transfused 03/14/22 * Cr improved from 1.8 --> 1.6 * Patient is nonoliguric and had net 800 cc diuresis last 24 hours. 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 Post transplant creatinine has been 1.0 (CKD stage GIIIa/A3). Immunosuppressive regimen includes Tacrolimus 0.5 mg po BID, MMF 250 mg po BID (3) Acute exacerbation of CHF (congestive heart failure): Plan: * Clinically improved. SaO2 97% on RA. Patient is nonoliguric. Continue po Furosemide * May benefit from weight or symptom adjusted diuretic dosing regimen as outpatient or change from Furosemide to Torsemide/Bumetanide * 03/14/22 Echocardiogram: LVEF 60%. No new WMA. Moderate MR. RVSP 40 - 50 mm Hg (4) Atrial fibrillation with rapid ventricular response: Plan: * HR now controlled w/ oral Metoprolol * On Apixaban (5) Cystitis: Plan: * Urine cx positive for Enterococcus - PCN sensitive * On IV Zosyn. Recommend consultation w/ Pharmacy for dosing in the setting of SHERLYN (6) Diarrhea: Plan: * Stool + for Norovirus (7) Pancytopenia: Plan: * WBC and PLT # improved. Patient has progressive anemia * Pathology peripheral smear review pending * Will check LDH, haptoglobin * Epogen 10,000 units SQ administered 03/14/22 * 2U PRBC transfused 03/14/22 * Possibly related to Norovirus Admission and Anticipated Discharge Date Admission Date: March 11, 2022 Subjective Mrs. Page was evaluated in her hospital room this morning. She was beginning PT and was breathing comfortably on RA. She denied angina, palpitations or uremic symptoms. Mrs. Page reports that her diarrhea has resolved. She was transfused 2 U PRBC yesterday evening Review of Systems Constitutional: no fever Eyes: no problem reported Ear, Nose, Mouth, Throat: no problem reported Respiratory: no dyspnea Cardiovascular: + edema; no chest pain Gastrointestinal: no abdominal pain, no nausea, no vomiting and no diarrhea/loose stools Genitourinary: no dysuria and no hematuria Musculoskeletal: no back pain Integumentary: no rash Neurologic: no confusion Physical Exam Constitutional: + overweight; not in distress Eyes: PERRL, conjunctivae normal, anicteric sclerae ENMT: external ear and nose normal, oropharynx normal Neck: trachea midline, no thyromegaly Respiratory: normal respiratory effort, lungs clear to auscultation Cardiovascular: Rate/Rhythm: regular rate and regular rhythm Extremities: + edema (2+ pretibial pitting edema) and + AV fistula (L BC AVF + bruit) Gastrointestinal (Abdomen): normal bowel sounds, soft, nontender, no hepatosplenomegaly Neurologic: awake; not confused Results & Data ([facility]) Vital Signs (Past 12 Hours) Vital Signs Temp Pulse Pulse Resp BP Pulse Ox 03/15/22 07:08 36.5 C 75 16 116/65 97 03/15/22 07:04 77 18 97 03/15/22 02:41 36.6 C 79 20 113/72 94 03/14/22 23:15 77 03/14/22 22:59 36.7 C 65 20 128/74 95 Laboratory Results Laboratory Tests 03/13/22 03/14/22 03/14/22 11:00 05:50 05:50 WBC Hgb Hct Plt Count Haptoglobin Sodium Potassium Chloride Carbon Dioxide BUN Creatinine Glucose Calcium Transferrin % Sat Lactate Dehydrogenase Stl Norovirus GI/GII PCR DETECTED A* Mycophenolic Acid Pending MPA Glucuronide Pending Tacrolimus Pending 03/14/22 03/14/22 03/14/22 08:16 11:38 11:38 WBC Hgb Hct Plt Count Haptoglobin Pending Sodium Potassium Chloride Carbon Dioxide BUN Creatinine Glucose Calcium Transferrin % Sat 48 Lactate Dehydrogenase 267 H Stl Norovirus GI/GII PCR Mycophenolic Acid MPA Glucuronide Tacrolimus 03/15/22 03/15/22 06:08 06:08 WBC 6.05 Hgb 8.9 L Hct 25.7 L Plt Count 118 L Haptoglobin Sodium 138 Potassium 3.8 Chloride 105 Carbon Dioxide 25 BUN 32 H Creatinine 1.66 H Glucose 111 H Calcium 8.1 L Transferrin % Sat Lactate Dehydrogenase Stl Norovirus GI/GII PCR Mycophenolic Acid MPA Glucuronide Tacrolimus Laboratory Tests 03/14/22 05:50 Peripher Smr Path Cons Pending PG Care Time/CCT Total # of Minutes Spent Total Time Spent with Patient: Total time spent is greater than 50% in coordination of care (as documented) at patient's floor/unit and/or counseling patient: Coding Level of Care Code 02278 Subseq Hosp Care Lvl 3 Diagnoses Acute kidney injury N17.9 Chronic kidney disease, stage III (moderate) N18.30 Acute exacerbation of CHF (congestive heart failure) I50.9 Heart failure type: unspecified Atrial fibrillation with rapid ventricular response I48.91 Cystitis N30.90 Diarrhea R19.7 Pancytopenia D61.818 (1) Acute exacerbation of CHF (congestive heart failure) Heart failure type: unspecified Qualified Code(s): I50.9 - Heart failure, unspecified
[2022-03-15] MEDS: AMPICILLIN/SULBACTAM SOD 3,000 MG in 0.9 % SODIUM CHLORIDE 100 ML IV SCH ×3 (10:28→23:07)
--- NOTE | 2022-03-15 13:14 | Hospitalist Progress Note ---
Date of Service March 15, 2022 Assessment & Plan (1) Norovirus: Plan: Suspect this is the cause of her acute deterioration. Diarrhea resolved. (2) Acute kidney injury: Plan: Improving today after switching to PO Lasix so suspect we reached her dry weight. Will continue to trend BMP with reduced Diuretics and off ACEi (3) Pancytopenia: Plan: Suspect as a result of norovirus causing cell line depression in setting of tacrolimus and mycophenolate. Improving. Tacrolimus and mycophenolate levels pending. Peripheral smear with AM labs and consult hematology to assess for alternate cause. (4) Normocytic anemia: Plan: Iron, B12 and folate levels normal. s/p transfusion 2 units packed RBCs 03/14, repeat Hgb 8.9 from 7.3 with improved fatigue. FOB pending however suspect blood loss from multiple ecchymosis and hemarthrosis (5) UTI (urinary tract infection): Plan: Unclear is symptomatic vs. asymptomatic but given renal transplant will need to treat regardless. Enterococcus faecalis - switch antibiotics to Unasyn. Day 4 of antibiotics, plan for total 7 day course. (6) Pneumonia: Plan: Questionable diagnosis - suspect this was more pulmonary edema, resolved with IV diuretics. Unasyn as above for total 7 days. Duonebs QID PRN (7) Coag negative Staphylococcus bacteremia: Plan: Suspected contaminant. Repeat blood cultures negative @ 48 hours (8) Acute exacerbation of CHF (congestive heart failure): Plan: Elevated troponin/CHF exacerbation/atrial fibrillation- Reached euvolemic state and now back on furosemide 40mg PO BID with improved Cr (9) Bilateral leg edema: Plan: Lasix as above. US venous doppler left extremity as larger than right, negative for DVT. (10) Acute respiratory failure with hypoxia: Plan: Secondary to pulmonary edema. Resolved (11) Fall: Plan: Lumbar spine CT and hip and b/l knee XR - without fractures PT/OT evals pending (12) Atrial fibrillation with rapid ventricular response: Plan: Rate controlled on diltiazem and metoprolol Eliquis on hold due to hemarthrosis pending orthopedic evaluation (13) HTN (hypertension): Plan: See above (14) Kidney transplant recipient: Plan: Continue immunosuppressive's, CellCept and tacrolimus. Levels pending. (15) Diabetes mellitus type II, controlled: Plan: Restart insulin glargine 5 units every morning Novolog: Goal BSG Range: Low 100_mg/dL, High 150_mg/dL Correction Factor: 30_mg/dL/unit Carbohydrate ratio = _15_ g/unit BSGs ACHS if eating, q6h if npo HbA1C 6.0 (16) AV fistula: Plan: Left upper extremity AV fistula with palpable thrill (17) Hypercholesteremia: Plan: Continue simvastatin 20 mg daily (18) Hypothyroidism: Plan: TSH 5.18 in November Continue levothyroxine 75 mcg daily (19) Gout: Plan: Continue allopurinol Plan: VTE Prophylaxis - Eliquis on hold pending orthopedic review Diet - heart healthy, T2DM Disposition - stable for transfer to med/tele Admission and Anticipated Discharge Date Admission Date: March 11, 2022 Subjective Left knee pain stable and swelling similar to yesterday but ecchympsis behind knee appears to be increasing. No chest pain, shortness of breath, abdominal pain, diarrhea, melena or bright red blood in stool. Review of Systems Review of Systems: All systems reviewed & are unremarkable except as noted in Subjective Physical Exam Constitutional: well developed and well nourished; no acute distress Eyes: + anicteric sclerae; normal pupil size Respiratory: normal respiratory effort; no respiratory distress Cardiovascular: Rate/Rhythm: regular rate and regular rhythm Heart Sounds: no murmur Extremities: + pedal edema (2+ L > R) Gastrointestinal (Abdomen): Inspection/Auscultation: normal bowel sounds Percussion/Palpation: abdomen soft; abdomen nontender, no guarding and abdomen not rigid Musculoskeletal: Hip: normal ROM of hip (no groin pain on left hip movement) and no joint line tenderness Knee: + effusion (left) and + ecchymosis (posterior); no joint line tenderness Skin: + ecchymosis (right chest wall, right arm, posterior left knee) Neurologic: moves all extremities and awake; not confused Psychiatric: A+Ox3, euthymic affect Results & Data Results & Data ([facility]) Vital Signs (Past 12 Hours) Vital Signs Temp Pulse Resp BP Pulse Ox 03/15/22 11:06 76 16 96 03/15/22 07:08 36.5 C 75 16 116/65 97 03/15/22 07:04 77 18 97 03/15/22 02:41 36.6 C 79 20 113/72 94 PG Care Time/CCT Total # of Minutes Spent Total Time Spent with Patient: Total time spent is greater than 50% in coordination of care (as documented) at patient's floor/unit and/or counseling patient: Coding Level of Care Code 10406 Subseq Hosp Care Lvl 3 Diagnoses Norovirus A08.11 Acute kidney injury N17.9 Pancytopenia D61.818 UTI (urinary tract infection) N39.0 Pneumonia J18.9 Coag negative Staphylococcus bacteremia R78.81; B95.7 Acute exacerbation of CHF (congestive heart failure) I50.9 Heart failure type: unspecified Bilateral leg edema R60.0 Acute respiratory failure with hypoxia J96.01 Fall W19.XXXA Atrial fibrillation with rapid ventricular response I48.91 HTN (hypertension) I10 Hypertension type: primary hypertension Kidney transplant recipient Z94.0 Diabetes mellitus type II, controlled E11.42; Z79.4 Diabetes mellitus senior living insulin use: with intermediate teacher use Diabetes mellitus complication status: with neurologic complications Diabetes mellitus complication detail: with polyneuropathy AV fistula I77.0 Hypercholesteremia E78.00 Hypothyroidism E03.9 Hypothyroidism type: unspecified Gout M1A.30X0 Gout site: unspecified site Gout etiology: due to renal impairment Chronicity: chronic Presence of tophus: without tophus Normocytic anemia D64.9 (1) Acute exacerbation of CHF (congestive heart failure) Heart failure type: unspecified Qualified Code(s): I50.9 - Heart failure, unspecified (2) HTN (hypertension) Hypertension type: primary hypertension Qualified Code(s): I10 - Essential (primary) hypertension (3) Diabetes mellitus type II, controlled Diabetes mellitus senior living insulin use: with senior living use Diabetes mellitus complication status: with neurologic complications Diabetes mellitus complication detail: with polyneuropathy Qualified Code(s): E11.42 - Type 2 diabetes mellitus with diabetic polyneuropathy; Z79.4 - [facility] (current) use of insulin (4) Hypothyroidism Hypothyroidism type: unspecified Qualified Code(s): E03.9 - Hypothyroidism, unspecified (5) Gout Gout site: unspecified site Gout etiology: due to renal impairment Chronicity: chronic Presence of tophus: without tophus Qualified Code(s): 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
[2022-03-15] MEDS ORDERED: ALBUT/IPRATROP 3MG/0.5MG NEB 3 ML VIAL NEB PRN (15:03)
[2022-03-15] MEDS: SIMVASTATIN 20 MG TAB PO SCH (20:26)
[2022-03-16] MEDS: AMPICILLIN/SULBACTAM SOD 3,000 MG in 0.9 % SODIUM CHLORIDE 100 ML IV SCH ×4 (04:17→22:02)
[2022-03-16] MEDS: LEVOTHYROXINE SODIUM 75 MCG TABLET PO SCH (06:04)
[2022-03-16] MEDS: ALBUT/IPRATROP 3MG/0.5MG NEB 3 ML VIAL NEB SCH (06:53)
[2022-03-16] MEDS: BUDESONIDE 0.5 MG/2 ML VIAL (PULMICORT) NEB SCH (07:17)
[2022-03-16] MEDS: METOPROLOL TARTRATE 25 MG TAB PO SCH ×2 (08:47→20:33)
[2022-03-16] MEDS: MULTIVITAMIN TAB PO SCH (08:47)
[2022-03-16] MEDS: MAGNESIUM OXIDE 400 MG TAB PO SCH ×2 (08:47→20:33)
[2022-03-16] MEDS: FOLIC ACID 1 MG TAB PO SCH (08:47)
[2022-03-16] MEDS: FEXOFENADINE HCL 180 MG TAB PO SCH (08:47)
[2022-03-16] MEDS: FUROSEMIDE 40 MG TAB PO SCH ×2 (08:47→17:28)
--- NOTE | 2022-03-16 08:47 | Nephrology Progress Note ---
Date of Service March 16, 2022 Assessment & Plan (1) Acute kidney injury: Plan: * SHERLYN/CKD likely reflective of impaired renal perfusion (CHF) in the setting of LORRAINE inhibitor therapy * 03/13/22 Renal US: renal allograft negative for hydronephrosis/stone/mass * 2U PRBC transfused 03/14/22 * Cr improved from 1.8 --> 1.5 (baseline 1.0) * Patient is nonoliguric and had net 2200 cc diuresis last 24 hours. 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 Post transplant creatinine has been 1.0 (CKD stage GIIIa/A3). Immunosuppressive regimen includes Tacrolimus 0.5 mg po BID, MMF 250 mg po BID (3) Acute exacerbation of CHF (congestive heart failure): Plan: * Clinically improved. SaO2 95% on RA. Patient is nonoliguric. Continue po Furosemide * May benefit from weight or symptom adjusted diuretic dosing regimen as outpatient or change from Furosemide to Torsemide/Bumetanide * 03/14/22 Echocardiogram: LVEF 60%. No new WMA. Moderate MR. RVSP 40 - 50 mmHg (4) Atrial fibrillation with rapid ventricular response: Plan: * HR now controlled w/ oral Metoprolol * On Apixaban (5) Cystitis: Plan: * Urine cx positive for Enterococcus - PCN sensitive * On IV Unasyn. Recommend consultation w/ Pharmacy for dosing in the setting of SHERLYN (6) Diarrhea: Plan: * Stool was + for Norovirus * Diarrhea resolved (7) Pancytopenia: Plan: * Possibly related to Norovirus * 2U PRBC transfused 03/14/22 * WBC and PLT # corrected. Anemia has improved following blood transfusion and ALIZA administration * 03/15 peripheral smear review negative for schistocytes Admission and Anticipated Discharge Date Admission Date: March 11, 2022 Subjective Mrs. Page was evaluated in her hospital room this morning. She was breathing comfortably on RA. She denied angina, palpitations or uremic symptoms. Mrs. Page reports that her diarrhea has resolved. Her LE swelling is mildly improved as well. Review of Systems Constitutional: no fever Eyes: no problem reported Ear, Nose, Mouth, Throat: no problem reported Respiratory: no dyspnea Cardiovascular: + edema; no chest pain Gastrointestinal: no abdominal pain, no nausea, no vomiting and no diarrhea/loose stools Genitourinary: no dysuria and no hematuria Musculoskeletal: no back pain Integumentary: no rash Neurologic: no confusion Physical Exam Constitutional: + overweight; not in distress Eyes: PERRL, conjunctivae normal, anicteric sclerae ENMT: external ear and nose normal, oropharynx normal Neck: trachea midline, no thyromegaly Respiratory: normal respiratory effort, lungs clear to auscultation Cardiovascular: Rate/Rhythm: regular rate and regular rhythm Extremities: + edema (1+ pretibial pitting edema L>R) and + AV fistula (L BC AVF + bruit) Gastrointestinal (Abdomen): normal bowel sounds, soft, nontender, no hepatosplenomegaly Neurologic: awake; not confused Results & Data ([facility]) Vital Signs (Past 12 Hours) Vital Signs Temp Pulse Pulse Pulse Resp BP Pulse Ox 03/16/22 07:58 36.6 C 86 16 120/73 95 03/16/22 07:20 89 18 95 03/16/22 02:59 36.4 C L 84 18 117/66 93 03/15/22 23:38 83 03/15/22 22:28 36.7 C 86 22 135/72 98 Laboratory Results Laboratory Tests 03/14/22 03/14/22 03/14/22 05:50 05:50 05:50 WBC Hgb Hct Plt Count Sodium Potassium Chloride Carbon Dioxide BUN Creatinine 1.84 H Glucose Mycophenolic Acid Pending MPA Glucuronide Pending Tacrolimus Pending 03/15/22 03/16/22 03/16/22 06:08 08:57 08:57 WBC 6.90 Hgb 9.1 L Hct 26.6 L Plt Count 146 Sodium 139 Potassium 3.9 Chloride 106 Carbon Dioxide 25 BUN 26 H Creatinine 1.66 H 1.51 H Glucose 140 H Mycophenolic Acid MPA Glucuronide Tacrolimus PG Care Time/CCT Total # of Minutes Spent Total Time Spent with Patient: Total time spent is greater than 50% in coordination of care (as documented) at patient's floor/unit and/or counseling patient: Coding Level of Care Code 24928 Subseq Hosp Care Lvl 3 Diagnoses Acute kidney injury N17.9 Chronic kidney disease, stage III (moderate) N18.30 Acute exacerbation of CHF (congestive heart failure) I50.9 Heart failure type: unspecified Atrial fibrillation with rapid ventricular response I48.91 Cystitis N30.90 Diarrhea R19.7 Pancytopenia D61.818 (1) Acute exacerbation of CHF (congestive heart failure) Heart failure type: unspecified Qualified Code(s): I50.9 - Heart failure, unspecified
[2022-03-16] MEDS: OMEGA-3 (PURIFIED FISH OIL) 1 GM CAP PO SCH ×2 (08:48→20:34)
[2022-03-16] MEDS: allopurinoL 300 MG TAB PO SCH ×2 (08:48→20:34)
[2022-03-16] MEDS: MYCOPHENOLATE MOFETIL 250 MG CAP PO SCH ×2 (08:48→20:35)
[2022-03-16] MEDS: dilTIAZem HCL 240 MG CAPCR PO SCH (08:48)
[2022-03-16] MEDS: FAMOTIDINE 20 MG TAB PO SCH ×2 (08:48→20:36)
[2022-03-16] MEDS: CEROVITE ADV FORMULA TAB PO SCH ×2 (08:48→20:35)
[2022-03-16] MEDS: INSULIN GLARGINE SOLOSTAR 100 UNITS/ML 3 ML PEN SC SCH (08:49)
[2022-03-16] MEDS: TACROLIMUS 0.5 MG CAP PO SCH ×2 (08:49→20:35)
[2022-03-16 09:07] LABS: Basophils # (auto) 0.02 K/uL (0-0.2); Basophils % (auto) 0.3 %; Eosinophils # (auto) 0.28 K/uL (0-0.5); Eosinophils % (auto) 4.1 %; Hematocrit (blood only) 26.6 % (37-47); Hemoglobin 9.1 g/dL (12.0-16.0); Immature Granulocytes # (auto) 0.05 K/uL (0.00-0.02); Immature Granulocytes % (auto) 0.7 %; Lymphocytes # (auto) 0.57 K/uL (1.2-3.4); Lymphocytes % (auto) 8.3 %; Mean Corpuscular Hemoglobin 31.9 pg (25-34); Mean Corpuscular Hgb Conc 34.2 g/dL (32-36); Mean Corpuscular Volume 93.3 fL (80-100); Mean Platelet Volume 9.4 fL (7.4-10.4); Monocytes # (auto) 0.46 K/uL (0.11-0.59); Monocytes % (auto) 6.7 %; Neutrophils # (auto) 5.52 K/uL (1.4-6.5); Neutrophils % (auto) 79.9 %; Nucleated RBC # (auto) 0.09 K/uL (0-0); Nucleated RBC % (auto) 1.4 %; Platelet Count 146 K/uL (130-400); RDW Coefficient of Variation 18.1 % (11.5-14.5); RDW Standard Deviation 60.6 fL (36.4-46.3); Red Blood Count 2.85 M/uL (4.2-5.4)
[2022-03-16] MEDS: INSULIN ASPART PER UNIT SC SCH ×4 (09:18→20:39)
[2022-03-16 09:28] LABS: BUN Creatinine Ratio 17.2 (10-20); Calcium 8.4 mg/dl (8.5-10.1); Est GFR (African American) 38.8 ml/min; Est GFR (Non-African American) 33.5 ml/min; Potassium 3.9 mmol/L (3.5-5.1)
--- NOTE | 2022-03-16 09:39 | Hospitalist Progress Note ---
Date of Service March 16, 2022 Assessment & Plan (1) Norovirus: Plan: Suspect this is the cause of her acute deterioration. Diarrhea resolved. (2) Acute kidney injury: Plan: Improving today after switching to PO Lasix so suspect we reached her dry weight. Will continue to trend BMP with reduced Diuretics and off ACEi (3) Pancytopenia: Plan: Suspect as a result of norovirus causing cell line depression in setting of tacrolimus and mycophenolate. Improving. Tacrolimus and mycophenolate levels pending. Resolved (4) Normocytic anemia: Plan: Iron, B12 and folate levels normal. s/p transfusion 2 units packed RBCs 03/14, repeat Hgb 8.9 from 7.3 with improved fatigue. FOB pending however suspect blood loss from multiple ecchymosis and hemarthrosis (5) UTI (urinary tract infection): Plan: Unclear is symptomatic vs. asymptomatic but given renal transplant will need to treat regardless. Enterococcus faecalis - switch antibiotics to Unasyn. Day 5 of antibiotics, plan for total 7 day course. (6) Pneumonia: Plan: Questionable diagnosis - suspect this was more pulmonary edema, resolved with IV diuretics. Unasyn as above for total 7 days. Duonebs QID PRN (7) Coag negative Staphylococcus bacteremia: Plan: Suspected contaminant. Repeat blood cultures negative @ 48 hours (8) Acute exacerbation of CHF (congestive heart failure): Plan: Elevated troponin/CHF exacerbation/atrial fibrillation- Reached euvolemic state and now back on furosemide 40mg PO BID with improved Cr (9) Bilateral leg edema: Plan: Lasix as above. US venous doppler left extremity as larger than right, negative for DVT. (10) Acute respiratory failure with hypoxia: Plan: Secondary to pulmonary edema. Resolved (11) Fall: Plan: Lumbar spine CT and hip and b/l knee XR - without fractures PT/OT evals planning on inpatient rehab Appreciate orthopedic evaluation - will follow up as outpatient (12) Atrial fibrillation with rapid ventricular response: Plan: Rate controlled on diltiazem and metoprolol Eliquis restart tomorrow for anticoagulation (13) HTN (hypertension): Plan: See above (14) Kidney transplant recipient: Plan: Continue immunosuppressive's, CellCept and tacrolimus. Levels pending. (15) Diabetes mellitus type II, controlled: Plan: Restart insulin glargine 5 units every morning Novolog: Goal BSG Range: Low 100_mg/dL, High 150_mg/dL Correction Factor: 30_mg/dL/unit Carbohydrate ratio = _15_ g/unit BSGs ACHS if eating, q6h if npo HbA1C 6.0 (16) AV fistula: Plan: Left upper extremity AV fistula with palpable thrill (17) Hypercholesteremia: Plan: Continue simvastatin 20 mg daily (18) Hypothyroidism: Plan: TSH 5.18 in November Continue levothyroxine 75 mcg daily (19) Gout: Plan: Continue allopurinol Plan: VTE Prophylaxis - Eliquis restart Diet - heart healthy, T2DM Disposition - continue on med/tele, medically stable for discharge pending placement Admission and Anticipated Discharge Date Admission Date: March 11, 2022 Subjective Diarrhea resolved. No further imaging recommended for left knee by orthopedics. Improving pain daily. Leg swelling stable. Breathing stable. Review of Systems Review of Systems: All systems reviewed & are unremarkable except as noted in Subjective Physical Exam Constitutional: WD/WN, vitals as above Respiratory: normal respiratory effort, lungs clear to auscultation Cardiovascular: Rate/Rhythm: regular rate and regular rhythm Heart Sounds: no murmur Extremities: + pedal edema (2+ L > R) Gastrointestinal (Abdomen): Inspection/Auscultation: normal bowel sounds Percussion/Palpation: abdomen soft; abdomen nontender, no guarding and abdomen not rigid Musculoskeletal: no cyanosis or clubbing, extremities motor strength 5/5 Knee: + effusion (left) and + ecchymosis (posterior); no joint line tenderness Skin: no rashes, warm and dry + ecchymosis (right chest wall, right arm, posterior left knee); no pallor Neurologic: moves all extremities and awake; not confused Psychiatric: A+Ox3, euthymic affect Results & Data Results & Data ([facility]) Vital Signs (Past 12 Hours) Vital Signs Temp Pulse Pulse Pulse Resp BP Pulse Ox 03/16/22 07:58 36.6 C 86 16 120/73 95 03/16/22 07:20 89 18 95 03/16/22 02:59 36.4 C L 84 18 117/66 93 03/15/22 23:38 83 03/15/22 22:28 36.7 C 86 22 135/72 98 PG Care Time/CCT Total # of Minutes Spent Total Time Spent with Patient: Total time spent is greater than 50% in coordination of care (as documented) at patient's floor/unit and/or counseling patient: Coding Level of Care Code 79946 Subseq Hosp Care Lvl 1 Diagnoses Norovirus A08.11 Acute kidney injury N17.9 Pancytopenia D61.818 Normocytic anemia D64.9 UTI (urinary tract infection) N39.0 Pneumonia J18.9 Coag negative Staphylococcus bacteremia R78.81; B95.7 Acute exacerbation of CHF (congestive heart failure) I50.9 Heart failure type: unspecified Bilateral leg edema R60.0 Acute respiratory failure with hypoxia J96.01 Fall W19.XXXA Atrial fibrillation with rapid ventricular response I48.91 HTN (hypertension) I10 Hypertension type: primary hypertension Kidney transplant recipient Z94.0 Diabetes mellitus type II, controlled E11.42; Z79.4 Diabetes mellitus complication detail: with polyneuropathy Diabetes mellitus complication status: with neurologic complications Diabetes mellitus machine long goods helper insulin use: with custodial use AV fistula I77.0 Hypercholesteremia E78.00 Hypothyroidism E03.9 Hypothyroidism type: unspecified Gout M1A.30X0 Chronicity: chronic Gout etiology: due to renal impairment Gout site: unspecified site Presence of tophus: without tophus (1) Acute exacerbation of CHF (congestive heart failure) Heart failure type: unspecified Qualified Code(s): I50.9 - Heart failure, unspecified (2) Gout Chronicity: chronic Gout etiology: due to renal impairment Gout site: unspecified site Presence of tophus: without tophus Qualified Code(s): 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 (3) Hypothyroidism Hypothyroidism type: unspecified Qualified Code(s): E03.9 - Hypothyroidism, unspecified (4) Diabetes mellitus type II, controlled Diabetes mellitus complication detail: with polyneuropathy Diabetes mellitus complication status: with neurologic complications Diabetes mellitus custodial insulin use: with machine long goods helper use Qualified Code(s): E11.42 - Type 2 diabetes mellitus with diabetic polyneuropathy; Z79.4 - care home (current) use of insulin (5) HTN (hypertension) Hypertension type: primary hypertension Qualified Code(s): I10 - Essential (primary) hypertension
[2022-03-16] MEDS ORDERED: EPOETIN ALFA 10,000 UNITS/ML VIAL SQ SCH (10:00)
--- NOTE | 2022-03-16 10:14 | Orthopedic Consultation ---
Date of Consultation March 16, 2022 Assessment & Plan (1) Left knee pain: Patient can be touchdown weightbearing as tolerated with walker assistance while working with PT/OT. Ice with easy wrap Pain control with p.o. medication Orthopedically patient is stable. Other conditions will be followed by medicine service. Will discuss findings with Dr. Soares. Patient will need a 2-week follow-up in our clinic. History of Present Illness Reason for Consultation: Left knee pain and swelling Requesting Physician: Jovon Soares MD Attending Physician: Hamlet Murray MD History of Present Illness This 76-year-old female seen today in consultation for left knee pain. Patient has been admitted to the hospital since March 11 for an exacerbation of congestive heart failure, atrial fibrillation, fever, cough with suspected pneumonia. Patient is also the recipient of a kidney transplant several years ago. Patient states that on March 10 she fell when she landed she was sitting Moldovan style. She states that initially she had some back pain which has res olved but now she experiences significant left knee pain with some bruising to the posterior aspect. She states she has had difficulty bearing weight on the extremity due to the pain and her limitations in range of motion. Otherwise she has no other complaints at this time. Allergies Allergy/AdvReac Type Severity Reaction Status Date / Time adhesive Allergy Intermediate ERYTHEMA Verified 03/11/22 19:50 WITH ADHESIVE TAPE, blisters Home Medications Medication Instructions Recorded Confirmed Type multivitamin 1 tab PO QAM #0 05/23/06 03/11/22 History omega 9-ezm-rba-fish oil 1,000 mg 1,000 mg PO BID #0 10/30/10 03/11/22 History (120 mg-180 mg) capsule (Fish Oil) folic acid 1 mg tablet 1 mg PO QAM #0 05/07/12 03/11/22 History lutein 20 mg capsule 20 mg PO QPM #0 11/11/14 03/11/22 History lancets 33 gauge (OneTouch Delica #100 ea 06/15/19 02/02/22 History Plus Lancet) tacrolimus 0.5 mg capsule, 0.5 mg PO Q12 cap 08/28/19 03/11/22 History immediate-release blood sugar diagnostic (OneTouch #100 ea 12/21/19 02/02/22 Rx Ultra Blue Test Strip) vit C,E,zinc,copper-iolqv5g 250 1 cap PO BID 05/13/20 03/11/22 History mg-lutein 5 mg-zeaxanthin 1 mg capsule (Ocuvite Adult 50 Plus) mycophenolate mofetil 250 mg 250 mg PO Q12 cap 10/15/20 03/11/22 History capsule magnesium oxide 400 mg (241.3 mg 400 mg PO BID #180 tab 02/11/21 03/11/22 Rx magnesium) tablet insulin glargine 100 unit/mL (3 5 unit SUBCUT QAM #15 ml 03/13/21 03/11/22 Rx mL) subcutaneous pen (Lantus Solostar U-100 Insulin) simvastatin 20 mg tablet 20 mg PO HS #90 tab 06/29/21 03/11/22 Rx apixaban 5 mg tablet (Eliquis) 5 mg PO BID #180 tab 07/27/21 03/11/22 Rx furosemide 40 mg tablet 40 mg PO BID tab 07/30/21 03/11/22 History zoledronic acid 5 mg/100 mL in 5 mg IV YEARLY #100 ml 07/30/21 03/11/22 Rx mannitol 5 %-water intravenous piggybck (Reclast) metoprolol tartrate 25 mg tablet 37.5 mg PO BID 90 Days #270 tab 09/07/21 03/11/22 Rx diltiazem HCl 240 mg 240 mg PO QAM #90 cap 11/25/21 03/11/22 Rx capsule,extended release 24 hr (Cartia XT) famotidine 20 mg tablet 20 mg PO BID #60 tab 01/12/22 03/11/22 Rx allopurinol 300 mg tablet 300 mg PO UD 03/11/22 03/11/22 History levothyroxine 75 mcg tablet 75 mcg PO DAILYBB 03/11/22 03/11/22 History lisinopril 10 mg tablet 10 mg PO HS 03/11/22 03/11/22 History Patient History Medical History Atrial fibrillation DX 2013 > NO CARDIOVERSIONS Atrial fibrillation with RVR Bilateral leg edema Diabetic peripheral neuropathy associated with type 2 diabetes mellitus Gastric ulcer RESOLVED History of dysplastic nevus HTN (hypertension) Hypercholesteremia Hyperparathyroidism Hypothyroidism Long-term current use of tacrolimus Macular degeneration BILAT Mitral regurgitation Osteoporosis Paroxysmal atrial fibrillation Personal history of diabetic foot ulcer Polycystic kidney disease HX > DR. ROCK > NANCY HINKLEALMACruz > DR[facility] SUAREZ [facility] [place] Proliferative glomerulonephritis with nephrotic syndrome Thrombocytopenia Surgical History History of hysterectomy History of renal transplant (07/02/11) History of squamous cell carcinoma in situ of skin WITH REMOVAL TO HEAD History of tonsillectomy Hx of cholecystectomy Kidney transplant recipient RIGHT > 1995 Family History Mother Diabetes Father Kidney disease Hypertension Son Kidney disease Sister Kidney disease Social History Smoking Status: Never smoker Tobacco Type: Cigarettes Second Hand Exposure: No; Do You Dip or Chew Tobacco: No; Tobacco Cessation Education Requested by Patient: No Hx Alcohol Use: No Hx Substance Use: No Preferred Language: French Communication Ability: Effective Visual Impairment: No Limitations Vice President Of Engineering Required: No Beliefs That Will Affect Care: None Current Living Situation: Family current occupational status: retired Other Information That Helps Us Care for You: No Feels Safe at Home: Yes Safety Concerns: Feels Safe At This Time Assistive Devices: Cane and Walker Assistive Devices Comment: glasses with pt Review of Systems Review of Systems: All systems reviewed & are unremarkable except as noted in Subjective Physical Exam Physical Exam: Left knee: Patient has moderate edema noted over the knee circumferentially with ecchymosis to the posterior fossa. She experiences tenderness to palpation over the medial and lateral joint line. She also has tenderness and some slight bruising over the patella. Passive range of motion is from 0 degrees of extension to 50 degrees of flexion. Patient has 2+ pitting edema of the entire lower extremity. She is unable to perform a straight leg raise test. She is able to actively dorsi and plantarflex her foot and has no pain with applied resistance. Peripheral pulses are 2+. Capillary fill is less than 2 seconds. Patient is neurovascular intact in the left lower extremity. Logroll test is negative. Passive AB and adduction causes no pain in her hip. Results & Data ([facility]) Vital Signs (Past 12 Hours) Vital Signs Temp Pulse Pulse Pulse Resp BP Pulse Ox 03/16/22 07:58 36.6 C 86 16 120/73 95 03/16/22 07:20 89 18 95 03/16/22 02:59 36.4 C L 84 18 117/66 93 03/15/22 23:38 83 03/15/22 22:28 36.7 C 86 22 135/72 98 Diagnostic Findings Laboratory Results WBC 6.90 K/uL (4.8-10.8) 03/16/22 08:57 RBC 2.85 M/uL (4.2-5.4) L 03/16/22 08:57 Hgb 9.1 g/dL (12.0-16.0) L 03/16/22 08:57 Hct 26.6 % (37-47) L 03/16/22 08:57 MCV 93.3 fL (80-100) 03/16/22 08:57 MCH 31.9 pg (25-34) 03/16/22 08:57 MCHC 34.2 g/dL (32-36) 03/16/22 08:57 RDW Std Deviation 60.6 fL (36.4-46.3) H 03/16/22 08:57 RDW Coeff of Lidya 18.1 % (11.5-14.5) H 03/16/22 08:57 Plt Count 146 K/uL (130-400) 03/16/22 08:57 MPV 9.4 fL (7.4-10.4) 03/16/22 08:57 Immature Gran % (Auto) 0.7 % 03/16/22 08:57 Neut % (Auto) 79.9 % 03/16/22 08:57 Lymph % (Auto) 8.3 % 03/16/22 08:57 Lee % (Auto) 6.7 % 03/16/22 08:57 Eos % (Auto) 4.1 % 03/16/22 08:57 Baso % (Auto) 0.3 % 03/16/22 08:57 Reticulocyte % (Auto) 1.8 % (0.5-2.0) 03/14/22 08:16 Neut # (Auto) 5.52 K/uL (1.4-6.5) 03/16/22 08:57 Lymph # (Auto) 0.57 K/uL (1.2-3.4) L 03/16/22 08:57 Lee # (Auto) 0.46 K/uL (0.11-0.59) 03/16/22 08:57 Eos # (Auto) 0.28 K/uL (0-0.5) 03/16/22 08:57 Baso # (Auto) 0.02 K/uL (0-0.2) 03/16/22 08:57 Reticulocyte # 0.05 10^6/uL (0.02-0.10) 03/14/22 08:16 Immature Gran # (Auto) 0.05 K/uL (0.00-0.02) H 03/16/22 08:57 Absolute Nucleated RBC 0.09 K/uL (0-0) H 03/16/22 08:57 Nucleated RBC % (auto) 1.4 % 03/16/22 08:57 Neutrophils % (Manual) Cancelled 03/12/22 07:43 Band Neutrophils % Cancelled 03/12/22 07:43 Lymphocytes % (Manual) Cancelled 03/12/22 07:43 Prolymphocyte % Cancelled 03/12/22 07:43 Reactive Lymphs % (Man) Cancelled 03/12/22 07:43 Monocytes % (Manual) Cancelled 03/12/22 07:43 Eosinophils % (Manual) Cancelled 03/12/22 07:43 Basophils % (Manual) Cancelled 03/12/22 07:43 Metamyelocytes % (Man) Cancelled 03/12/22 07:43 Myelocytes % (Man) Cancelled 03/12/22 07:43 Promyelocytes % (Man) Cancelled 03/12/22 07:43 Blast Cells % (Manual) Cancelled 03/12/22 07:43 Plasma Cell % (Manual) Cancelled 03/12/22 07:43 Other Cells % Cancelled 03/12/22 07:43 Nucleated RBC % Cancelled 03/12/22 07:43 Neutrophils # (Manual) Cancelled 03/12/22 07:43 Band Neutrophils # Cancelled 03/12/22 07:43 Total Absolute Neuts Cancelled 03/12/22 07:43 Lymphocytes # (Manual) Cancelled 03/12/22 07:43 Prolymphocyte # Cancelled 03/12/22 07:43 Reactive Lymphs # Cancelled 03/12/22 07:43 Total Abs Lymphocytes Cancelled 03/12/22 07:43 Monocytes # (Manual) Cancelled 03/12/22 07:43 Eosinophils # (Manual) Cancelled 03/12/22 07:43 Basophils # (Manual) Cancelled 03/12/22 07:43 Metamyelocytes # (Man) Cancelled 03/12/22 07:43 Myelocytes # (Manual) Cancelled 03/12/22 07:43 Promyelocytes # (Man) Cancelled 03/12/22 07:43 Blast Cells # (Man) Cancelled 03/12/22 07:43 Plasma Cell # (Manual) Cancelled 03/12/22 07:43 Other Cells # Cancelled 03/12/22 07:43 Nucleated RBCs # (Man) Cancelled 03/12/22 07:43 Hypersegmented Neuts Cancelled 03/12/22 07:43 Hyposegmented Neuts Cancelled 03/12/22 07:43 Hypogranular Neuts Cancelled 03/12/22 07:43 Large Granular Lymphs Cancelled 03/12/22 07:43 # Lrg Granular Lymphs Cancelled 03/12/22 07:43 Hairy Cells Cancelled 03/12/22 07:43 Smudge Cells Cancelled 03/12/22 07:43 Toxic Granulation Cancelled 03/12/22 07:43 Toxic Vacuolation Cancelled 03/12/22 07:43 Dohle Bodies Cancelled 03/12/22 07:43 Bert Rods Cancelled 03/12/22 07:43 Platelet Estimate Decreased (Normal) L 03/12/22 09:28 Hypogranular Platelets Cancelled 03/12/22 07:43 Clumped Platelets Cancelled 03/12/22 07:43 Giant Platelets Cancelled 03/12/22 07:43 Platelet Satelliting Cancelled 03/12/22 07:43 RBC Morphology Cancelled 03/12/22 07:43 Polychromasia 1+ 03/14/22 05:50 Hypochromasia Cancelled 03/12/22 07:43 Poikilocytosis Cancelled 03/12/22 07:43 Basophilic Stippling Cancelled 03/12/22 07:43 Anisocytosis Cancelled 03/12/22 07:43 Microcytosis Cancelled 03/12/22 07:43 Macrocytosis Cancelled 03/12/22 07:43 Spherocytes Cancelled 03/12/22 07:43 Pappenheimer Bodies Cancelled 03/12/22 07:43 Sickle Cells Cancelled 03/12/22 07:43 Target Cells Cancelled 03/12/22 07:43 Tear Drop Cells 1+ 03/14/22 05:50 Ovalocytes 1+ 03/14/22 05:50 Stomatocytes Cancelled 03/12/22 07:43 Carter-House Bodies Cancelled 03/12/22 07:43 Echinocytes Cancelled 03/12/22 07:43 Acanthocytes (Spur) Cancelled 03/12/22 07:43 Rouleaux Cancelled 03/12/22 07:43 RBC Agglutinates Cancelled 03/12/22 07:43 Schistocytes Cancelled 03/12/22 07:43 RBC Morph Comment Cancelled 03/12/22 07:43 Peripher Smr Path Cons 03/14/22 05:50 Sezary Cell Cancelled 03/12/22 07:43 PT 14.2 Seconds (9.0-12.0) H 03/11/22 19:40 INR 1.4 (0.9-1.1) H 03/11/22 19:40 APTT 41.6 Seconds (21.0-31.0) H 03/11/22 19:40 PTT Ratio 1.5 03/11/22 19:40 Sodium 139 mmol/L (136-145) 03/16/22 08:57 Potassium 3.9 mmol/L (3.5-5.1) 03/16/22 08:57 Chloride 106 mmol/L (98-107) 03/16/22 08:57 Carbon Dioxide 25 mmol/L (21-32) 03/16/22 08:57 Anion Gap 8 (3-11) 03/16/22 08:57 BUN 26 mg/dl (6-23) H 03/16/22 08:57 Creatinine 1.51 mg/dl (0.6-1.2) H 03/16/22 08:57 Est Cr Clr Drug Dosing 37.0 ml/min 03/16/22 08:57 Est GFR ( Amer) 38.8 ml/min 03/16/22 08:57 Est GFR (Non-Af Amer) 33.5 ml/min 03/16/22 08:57 BUN/Creatinine Ratio 17.2 (10-20) 03/16/22 08:57 Glucose 140 mg/dl (70-99(Fasting)) H 03/16/22 08:57 POC Glucose 113 mg/dl (70-99) H 03/16/22 07:29 Estimat Average Glucose 126 mg/dl 03/12/22 05:54 Hemoglobin A1c 6.0 % (4.5-5.6) H 03/12/22 05:54 Lactate 1.3 mmol/L (0.4-2.0) 03/11/22 19:40 Calcium 8.4 mg/dl (8.5-10.1) L 03/16/22 08:57 Magnesium 2.0 mg/dl (1.7-2.4) 03/11/22 19:40 Iron 81 mcg/dl (35-150) 03/14/22 08:16 TIBC 169 mcg/dl (250-450) L 03/14/22 08:16 Unsaturated IBC 88 mcg/dl (155-355) L 03/14/22 08:16 Transferrin % Sat 48 % (15-50) 03/14/22 08:16 Total Bilirubin 1.0 mg/dl (0.2-1.0) 03/11/22 19:40 AST 33 U/L (13-39) 03/11/22 19:40 ALT 14 U/L (7-52) 03/11/22 19:40 Alkaline Phosphatase 66 U/L (34-104) 03/11/22 19:40 Lactate Dehydrogenase 267 U/L (86-244) H 03/14/22 11:38 Troponin I High Sens 61.9 pg/ml (0-14) H* 03/11/22 19:40 B-Natriuretic Peptide 614 pg/ml (0-100) H 03/11/22 20:15 Total Protein 4.9 gm/dl (6.0-8.3) L 03/11/22 19:40 Albumin 3.0 gm/dl (3.4-5.0) L 03/11/22 19:40 Globulin 1.9 gm/dl (2.5-4.0) L 03/11/22 19:40 Albumin/Globulin Ratio 1.6 (0.9-2) 03/11/22 19:40 Vitamin B12 1486 pg/ml (180-914) H 03/14/22 08:16 Folate > 22.30 ng/ml (>5.38) 03/14/22 08:16 Procalcitonin 0.29 ng/ml (0-0.5) 03/11/22 19:40 Urine Color Yellow 03/12/22 06:25 Urine Appearance Cloudy (Clear) A 03/12/22 06:25 Urine pH 5.0 (4.5-7.5) 03/12/22 06:25 Ur Specific Tracy 1.017 (1.000-1.030) 03/12/22 06:25 Urine Protein 3+ (Negative) H 03/12/22 06:25 Urine Glucose (UA) Negative (Negative) 03/12/22 06:25 Urine Ketones Negative (Negative) 03/12/22 06:25 Urine Blood 1+ (Negative) H 03/12/22 06:25 Urine Nitrite Negative (Negative) 03/12/22 06:25 Urine Bilirubin Negative (Negative) 03/12/22 06:25 Urine Urobilinogen Negative (Negative) 03/12/22 06:25 Ur Leukocyte Esterase 1+ (Negative) H 03/12/22 06:25 Urine WBC (Auto) >30 /hpf (0-5) H 03/12/22 06:25 Urine RBC (Auto) 0-4 /hpf (0-4) 03/12/22 06:25 U Hyaline Cast (Auto) 1-5 /lpf (0-5) 03/12/22 06:25 U Epithel Cells (Auto) 10-20 /lpf (0-5) H 03/12/22 06:25 Urine Bacteria (Auto) 2+ (Negative) H 03/12/22 06:25 Nasal Screen MRSA (PCR) Negative (Negative) 03/12/22 01:20 Stool Occult Bld Scrn Cancelled 03/13/22 11:00 Stl C. cayetanensis PCR Not Detected (NotDetected) 03/13/22 11:00 Stool Rotavirus A PCR Not Detected (NotDetected) 03/13/22 11:00 Stl Adenov F 40/41 PCR Not Detected (NotDetected) 03/13/22 11:00 Stool Astrovirus (PCR) Not Detected (NotDetected) 03/13/22 11:00 Stool Campylobacter PCR Not Detected (NotDetected) 03/13/22 11:00 Stl C. diff Tox A/B PCR Not Detected (NotDetected) 03/13/22 11:00 Stool Cryptosporidium PCR Not Detected (NotDetected) 03/13/22 11:00 Stl E.coli Shiga Tox PCR Not Detected (NotDetected) 03/13/22 11:00 Stl Enterotoxigenic E PCR Not Detected (NotDetected) 03/13/22 11:00 Stool EPEC (PCR) Not Detected (NotDetected) 03/13/22 11:00 Stool EAEC (PCR) Not Detected (NotDetected) 03/13/22 11:00 Stl E. histolytica PCR Not Detected (NotDetected) 03/13/22 11:00 Stool Giardia Lamblia PCR Not Detected (NotDetected) 03/13/22 11:00 Stool Salmonella PCR Not Detected (NotDetected) 03/13/22 11:00 Stool Sapovirus (PCR) Not Detected (NotDetected) 03/13/22 11:00 Stl P. shigelloides PCR Not Detected (NotDetected) 03/13/22 11:00 Stl Shigella/EIEC PCR Not Detected (NotDetected) 03/13/22 11:00 St Y.enterocolitica PCR Not Detected (NotDetected) 03/13/22 11:00 Stool Vibrio (PCR) Not Detected (NotDetected) 03/13/22 11:00 Stl Vibrio cholerae PCR Not Detected (NotDetected) 03/13/22 11:00 Stl Norovirus GI/GII PCR DETECTED (NotDetected) A* 03/13/22 11:00 SARS-CoV-2 (PCR) NEGATIVE (Negative) 03/11/22 19:55 Hepatitis C Ab (EIA) NON-REACTIVE (NON-REACTIVE) 03/12/22 05:54 Hep C Ab Signal/Cutoff 0.00 (<1.00) 03/12/22 05:54 Influenza Type A (PCR) Negative (Neg) 03/11/22 19:55 Influenza Type B (PCR) Negative (Neg) 03/11/22 19:55 RSV (RT-PCR) Negative (Neg) 03/11/22 19:55 Blood Type O Positive 03/14/22 08:16 Antibody Screen NEGATIVE 03/14/22 08:16 Crossmatch See Detail 03/14/22 08:16 Impressions Hip/Pelvis X-Ray 03/12/22 11:59 XR hip RT 2V w pelvis HISTORY: 76 years-old Female right knee pain, back pain s/p fall acute pain of the pelvis and right hip status post fall COMPARISON: CT abdomen pelvis 04/05/2020 TECHNIQUE: AP view of the pelvis with 2 views of the right hip FINDINGS: Lumbar levoscoliosis with advanced multilevel degenerative changes. There is at least mild osteoarthritis of the hips. No acute fracture, dislocation or avascular necrosis. Arterial calcifications. Enlarged renal shadows again noted. Large abdominal wall hernia redemonstrated with bowel loops projected over the left thigh. IMPRESSION: No acute fracture or dislocation. ACT 112: Negative or not required by law. The above report was generated using voice recognition software. It may contain grammatical, syntax or spelling errors. Electronically signed by: Clemente Bear M.D. 03/12/2022 1:[address] 03/12/22 11:59 CT SCAN OF THE LUMBAR SPINE WITHOUT IV CONTRAST CLINICAL HISTORY: Fall. Low back pain. COMPARISON STUDY: Lumbar spine radiographs dated 11/17/2020. MRI of the lumbar spine dated 10/30/2010. Abdominal CT dated 04/05/2020. TECHNIQUE: CT scan of the lumbar spine is performed from the lower thoracic spine to the sacrum. Images are reviewed in the axial, sagittal, and coronal planes. Contrast was not administered for this examination. A dose lowering technique was utilized adhering to the principles of ALARA. The examination is significantly degraded by motion artifact and spinal scoliosis. CT DOSE: 747.48 mGycm FINDINGS: The skeletal structures are heterogeneously and osteopenic. Vertebral body height and alignment are maintained throughout the lumbar spine. There is no evidence of acute fracture or malalignment. Moderate lumbar levocurvature centered at L2. Large anterior and lateral marginal osteophytes are seen throughout. The transverse and spinous processes appear intact. There is no evidence of spondylolysis. No lytic or blastic lesion is seen. Moderate to advanced disc space narrowing and posterior disc osteophyte complexes are seen at all lumbar levels. Advanced facet arthropathy is seen in the mid to lower lumbar region. The visualized sacrum and bony pelvis appear intact. There is fatty atrophy of the paraspinous musculature. Atelectasis is noted at the lung bases. There is trace pleural effusion on the left. The abdominal aorta is normal in caliber. No retroperitoneal lymphadenopathy is identified. IMPRESSION: 1. No acute bony abnormality is seen involving the lumbar spine. 2. Osteopenia with advanced lumbosacral spondylosis and scoliosis as above. ACT 112: Negative or not required by law. Dictated: 03/12/2022 1:32 PM Transcribed: 03/12/2022 2:39 PM Elizabeth [id number] [facility] Electronically signed by: Vinny Haley M.D. 03/12/2022 3:10 PM Chest X-Ray 03/13/22 08:47 XR chest 2V PA/lateral CLINICAL HISTORY: PNA vs. pulmonary edema. COMPARISON STUDY: 03/11/2022 TECHNIQUE: 2 views of the chest FINDINGS: Frontal and lateral radiographs of the chest the heart size to again be enlarged. There is evidence for bilateral hilar prominence in the presence of hilar adenopathy cannot be excluded on this study. Mild central vascular congestion is again seen. No definite alveolar edema is identified. There is no evidence for effusion bilaterally. No confluent alveolar opacities are seen. There is no acute osseous pathology. IMPRESSION: 1. Mild cardiomegaly with bilateral hilar prominence is present. The presence of hilar adenopathy cannot be excluded on this study and CT of the chest with contrast is recommended for further evaluation. 2. Mild central vascular congestion with no peripheral interstitial edema or alveolar opacities. ACT 112: Negative or not required by law. Electronically signed by: Abhijit Campos M.D. 03/13/2022 10:12 AM Renal Ultrasound 03/13/22 10:16 PROCEDURE: US renal transplant w dop CLINICAL HISTORY: SHERLYN. Status post right pelvic kidney transplant COMPARISON: None. FINDINGS: The transplanted kidney demonstrates no hydronephrosis, nephrolithiasis or perinephric fluid collections. Resistive Index Range: 0.6 Velocity: 91 cm/s within the mid renal artery to the transplant Renal Transplant Site: Right lower quadrant IMPRESSION: Normal renal transplant sonogram. ACT 112: Negative or not required by law. Electronically signed by: Abhijit Campos M.D. 03/13/2022 12:48 PM Venous Doppler Study 03/13/22 13:04 US venous doppler LE LT CLINICAL HISTORY: left leg swelling COMPARISON: None available at the time of this dictation. TECHNIQUE: Left lower extremity real-time compression venous ultrasound with Color Doppler imaging. Utilizing real-time ultrasonic imaging multiple real time high-resolution ultrasonic images with compression and noncompression maneuvers of the deep venous system in addition to color doppler imaging were performed from the common femoral vein through the proximal calf veins. FINDINGS: This is a limited examination due to the patient's body habitus. Patient was unable to turn for sagittal imaging. Currently there is normal compressibility of the deep venous system from the common femoral vein through the proximal calf veins. No current evidence of acute thrombosis is identified. There is a popliteal cyst present measuring 3.3 x 2.8 x 1.6 cm. Impression: No evidence of deep venous thrombus. Limited examination due to body habitus. ACT 112: Negative or not required by law. Electronically signed by: Abhijit Campos M.D. 03/13/2022 2:09 PM Knee X-Ray 03/13/22 13:07 XR knee LT 1 or 2V routine CLINICAL HISTORY: left knee pain after fall. COMPARISON STUDY: No previous studies for comparison. TECHNIQUE: 2 left knee views FINDINGS: Bones: There is no evidence for an acute fracture or dislocation. There is no lytic or blastic lesion. Joints: The joint spaces are maintained. There is no evidence for an intra- articular effusion. The bones are in anatomic alignment. Soft tissues: There is no focal soft tissue abnormality. There is no radiopaque foreign body. IMPRESSION: 1. No acute osseous pathology. ACT 112: Negative or not required by law. Electronically signed by: Abhijit Campos M.D. 03/13/2022 2:09 PM
--- NOTE | 2022-03-16 15:32 | Progress Notes ---
DATE OF SERVICE: 03/16/2022. The patient is seen in conjunction with Curry Fulton. Please refer to his dictation. He and I saw an d evaluated together. I am in agreement with the plan. The patient fell Tuesday at home. Leg was tucked underneath her. She is able to do a straight leg raise and activate her quad. Her extensor mechanism is intact. The re is not significant swelling in the knee, but she does have an impressive bruise in the back of the knee. She has 5/5 ankle and toe plantar flexion, dorsiflexion, inversion, eversion strength and she has a 1+ dorsalis pedis pulse. There is 1+ pitting edema of her leg. Knee motion is 0 to about 60 degrees. Posterior drawer negative. Luis negative. Intact varus and valgus stress. Mild tenderne ss medial joint. X-rays show no effusion, fracture or dislocation. No change in patellar height. Sprain or strain of the knee. Contusion. PLAN: Range of motion, weightbearing as tolerated with walker. Does not need anything drained. We will hold on any corticosteroid type injections for the time being. We will continue to monitor. Oxana shin may weightbear as tolerated with walker. Job ID: [id number]
[2022-03-16] MEDS: SIMVASTATIN 20 MG TAB PO SCH (20:32)
[2022-03-17] MEDS: AMPICILLIN/SULBACTAM SOD 3,000 MG in 0.9 % SODIUM CHLORIDE 100 ML IV SCH ×3 (04:09→16:25)
[2022-03-17] MEDS: LEVOTHYROXINE SODIUM 75 MCG TABLET PO SCH (04:11)
[2022-03-17] MEDS: FUROSEMIDE 40 MG TAB PO SCH (08:21)
[2022-03-17] MEDS: MAGNESIUM OXIDE 400 MG TAB PO SCH (08:22)
[2022-03-17] MEDS: MULTIVITAMIN TAB PO SCH (08:22)
[2022-03-17] MEDS: OMEGA-3 (PURIFIED FISH OIL) 1 GM CAP PO SCH (08:22)
[2022-03-17] MEDS: FEXOFENADINE HCL 180 MG TAB PO SCH (08:22)
[2022-03-17] MEDS: allopurinoL 300 MG TAB PO SCH (08:22)
[2022-03-17] MEDS: FOLIC ACID 1 MG TAB PO SCH (08:22)
[2022-03-17] MEDS: METOPROLOL TARTRATE 25 MG TAB PO SCH (08:22)
[2022-03-17] MEDS: APIXABAN 5 MG TABLET PO SCH (08:23)
[2022-03-17] MEDS: CEROVITE ADV FORMULA TAB PO SCH (08:23)
[2022-03-17] MEDS: dilTIAZem HCL 240 MG CAPCR PO SCH (08:23)
[2022-03-17] MEDS: MYCOPHENOLATE MOFETIL 250 MG CAP PO SCH (08:23)
[2022-03-17] MEDS: INSULIN GLARGINE SOLOSTAR 100 UNITS/ML 3 ML PEN SC SCH (08:23)
[2022-03-17] MEDS: TACROLIMUS 0.5 MG CAP PO SCH (08:23)
[2022-03-17] MEDS: FAMOTIDINE 20 MG TAB PO SCH (08:23)
[2022-03-17 08:31] LABS: BUN Creatinine Ratio 16.2 (10-20); Calcium 8.4 mg/dl (8.5-10.1); Creatinine Clr Calc Pharmacy 38.1 ml/min; Est GFR (African American) 39.7 ml/min; Est GFR (Non-African American) 34.3 ml/min; Potassium 4.1 mmol/L (3.5-5.1)
[2022-03-17] MEDS: INSULIN ASPART PER UNIT SC SCH ×3 (08:50→17:20)
[2022-03-17] MEDS: ACETAMINOPHEN 325 MG TAB PO PRN ×2 (08:57→13:35)
--- NOTE | 2022-03-17 09:02 | Nephrology Progress Note ---
Date of Service March 17, 2022 Assessment & Plan (1) Acute kidney injury: Plan: * SHERLYN/CKD likely reflective of impaired renal perfusion (CHF) in the setting of LORRAINE inhibitor therapy * 03/13/22 Renal US: renal allograft negative for hydronephrosis/stone/mass * 2U PRBC transfused 03/14/22 * Cr improved from 1.8 --> 1.48 (baseline 1.0) * Patient continues to diurese. 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 Post transplant creatinine has been 1.0 (CKD stage GIIIa/A3). Immunosuppressive regimen includes Tacrolimus 0.5 mg po BID, MMF 250 mg po BID (3) Acute exacerbation of CHF (congestive heart failure): Plan: * Clinically improved. SaO2 95% on RA. Patient is nonoliguric. Continue po Fu rosemide * May benefit from weight or symptom adjusted diuretic dosing regimen as outpatient or change from Furosemide to Torsemide/Bumetanide * 03/14/22 Echocardiogram: LVEF 60%. No new WMA. Moderate MR. RVSP 40 - 50 mmHg * Will order follow up CXR today (4) Atrial fibrillation with rapid ventricular response: Plan: * HR now controlled w/ oral Metoprolol * On Apixaban (5) Cystitis: Plan: * Urine cx positive for Enterococcus - PCN sensitive * On IV Unasyn. Recommend consultation w/ Pharmacy for dosing in the setting of SHERLYN (6) Diarrhea: Plan: * Stool was + for Norovirus * Diarrhea resolved (7) Pancytopenia: Plan: * Possibly related to Norovirus * 2U PRBC transfused 03/14/22 * WBC and PLT # corrected. Anemia has improved following blood transfusion and ALIZA administration * 03/15 peripheral smear review negative for schistocytes Admission and Anticipated Discharge Date Admission Date: March 11, 2022 Subjective Mrs. Page was evaluated in her hospital room this morning. She was breathing comfortably on RA. She denied angina, palpitations or uremic symptoms. Mrs. Page reports that her diarrhea has resolved and her LE edema is mildly improved Review of Systems Constitutional: no fever Eyes: no problem reported Ear, Nose, Mouth, Throat: no problem reported Respiratory: no dyspnea Cardiovascular: + edema; no chest pain Gastrointestinal: no abdominal pain, no nausea, no vomiting and no diarrhea/loose stools Genitourinary: no dysuria and no hematuria Musculoskeletal: no back pain Integumentary: no rash Neurologic: no confusion Physical Exam Constitutional: + overweight; not in distress Eyes: PERRL, conjunctivae normal, anicteric sclerae ENMT: external ear and nose normal, oropharynx normal Neck: trachea midline, no thyromegaly Respiratory: normal respiratory effort, lungs clear to auscultation Cardiovascular: Rate/Rhythm: regular rate and regular rhythm Extremities: + edema (1+ pretibial pitting edema L>R) and + AV fistula (L BC AVF + bruit) Gastrointestinal (Abdomen): normal bowel sounds, soft, nontender, no hepatosplenomegaly Neurologic: awake; not confused Results & Data ([facility]) Vital Signs (Past 12 Hours) Vital Signs Temp Pulse Pulse Pulse Resp BP Pulse Ox 03/17/22 07:43 36.5 C 73 18 130/70 94 03/17/22 03:02 36.6 C 67 18 119/65 93 03/17/22 00:00 77 03/16/22 23:10 36.9 C 81 18 121/68 93 Laboratory Results Laboratory Tests 03/17/22 07:46 Sodium 138 Potassium 4.1 Chloride 107 Carbon Dioxide 26 BUN 24 H Creatinine 1.48 H Glucose 110 H Calcium 8.4 L PG Care Time/CCT Total # of Minutes Spent Total Time Spent with Patient: Total time spent is greater than 50% in coordination of care (as documented) at patient's floor/unit and/or counseling patient: Coding Level of Care Code 25816 Subseq Hosp Care Lvl 3 Diagnoses Acute kidney injury N17.9 Chronic kidney disease, stage III (moderate) N18.30 Acute exacerbation of CHF (congestive heart failure) I50.9 Heart failure type: unspecified Atrial fibrillation with rapid ventricular response I48.91 Cystitis N30.90 Diarrhea R19.7 Pancytopenia D61.818 (1) Acute exacerbation of CHF (congestive heart failure) Heart failure type: unspecified Qualified Code(s): I50.9 - Heart failure, unspecified
--- NOTE | 2022-03-17 10:40 | XRay Report ---
XR chest 1V portable HISTORY: Shortness of breath. Congestive heart failure. COMPARISON: Chest 03/13/2022. FINDINGS: No pneumothorax. The heart remains mildly enlarged. Dextroscoliosis of the thoracic spine. There is mild central pulmonary vascular congestion without overt edema. This has improved in the int erval. A hazy appearance to left lung base, unchanged. This could represent layering pleural fluid or developing airspace opacity. IMPRESSION: 1. Mild central pulmonary vascular congestion without overt edema. This has improved in the interval. 2. Hazy appearance to the left lung base, unchanged. This could represent layering pleural fluid or d eveloping airspace opacity. ACT 112: Negative or not required by law. Electronically signed by: Chapincito Suazo M.D. 03/17/2022 10:39 AM
[2022-03-17] MEDS ORDERED: FUROSEMIDE 40 MG TAB PO SCH (17:00)
--- NOTE | 2022-03-17 17:07 | Discharge Summary ---
Date of Service March 17, 2022 Admission HPI Per Admitting Provider The patient is a 76-year-old female with a past medical history of atrial fibrillation, gout, diabetes mellitus, peripheral neuropathy, hyperparathyroidism, hypertension, hypercholesterolemia, hypothyroidism, proliferative pyelonephritis with nephrotic syndrome, atrial fibrillation, kidney transplant recipient status, left upper extremity AV fistula, and polycystic kidney disease. She presents with symptoms as noted above, and were concerning due to her immunocompromise status on immunosuppressive medications. Principal Diagnosis Norovirus Pulmonary edema Fall Acute blood loss anemia Pancytopenia Asymptomatic bacteriuria and renal transplant patient Questionable pneumonia Discharge Exam Constitutional WD/WN, vitals as above Respiratory normal respiratory effort, lungs clear to auscultation normal respiratory effort; no respiratory distress Cardiovascular Rate/Rhythm: regular rate and regular rhythm Heart Sounds: no murmur Extremities: + pedal edema (2+ L > R) and + edema (left arm) Gastrointestinal (Abdomen) Percussion/Palpation: abdomen soft; abdomen nontender Musculoskeletal no cyanosis or clubbing, extremities motor strength 5/5 Spine: + lumbar spinal tenderness Knee: + effusion (left) and + ecchymosis (posterior); no joint line tenderness Skin + ecchymosis (right chest wall, right arm, posterior left knee, improving) Neurologic moves all extremities and awake; not confused Psychiatric A+Ox3, euthymic affect Discharge Data Allergies Allergy/AdvReac Type Severity Reaction Status Date / Time adhesive Allergy Intermediate ERYTHEMA Verified 03/11/22 19:50 WITH ADHESIVE TAPE, blisters Consultations 03/11/22 20:58 ED Decision to Admit Stat 03/12/22 00:36 Consult Cardiology Routine 03/13/22 08:59 Consult Nephrology Routine 03/15/22 13:04 Consult Orthopedic Surgery Routine Ordered Studies 03/12/22 11:59 CT lumbar spine wo con Urgent IMPRESSION: 1. No acute bony abnormality is seen involving the lumbar spine. 2. Osteopenia with advanced lumbosacral spondylosis and scoliosis as above. 03/13/22 10:16 US renal transplant w dop Urgent IMPRESSION: Normal renal transplant sonogram. 03/13/22 13:04 US venous doppler LE LT Urgent Impression: No evidence of deep venous thrombus. Limited examination due to body habitus. Hospital Course (1) Norovirus: Delmi Page is a 76-year-old female admitted to [facility] from March 11-2021 due to fever, cough, leg swelling. She was diagnosed with norovirus, possible pneumonia, bacteriuria (asymptomatic but in a renal transplant patient) and pulmonary edema. She was initially treated with Zosyn for the infections. This was switched to Unasyn to cover both pneumonia and Enterococcus faecalis in her urine. Due to the immunized state on tacrolimus and mycophenolate recommend total treatment of 14 days of antibiotics switched to Augmentin on discharge. Her diarrhea caused by norovirus improved during her admission. She developed pancytopenia which is since resolved likely due to norovirus with tacrolimus and mycophenolate. Due to pulmonary edema with acute hypoxic respiratory failure she was initially diuresed with intravenous Lasix. This caused acute renal injury with creatinine increased from 1.33 on admission to 1.84 (baseline 1.15). Suspect this was just due to overdiuresis and since switching back to her usual oral Lasix 40 mg p.o. twice daily her creatinine has slowly improved to 1.48. She has noticed increased swelling in her left arm at this dose but likely this is more due to vein insufficiency with her AV fistula on her left arm. Tacrolimus level 5.1 within normal limits. Mycophenolate level was pending at discharge. Although pancytopenia due to norovirus improved without intervention her anemia did not. Suspect this was due to acute blood loss anemia from her fall causing significant ecchymosis on the right side of her chest and hemarthrosis of the left knee. She required 2 units blood transfusion during her hospitalization. Hemoglobin stable at 9.1 on discharge on her usual Eliquis. Lisinopril discontinued by nephrology due to relatively low BP but this may need to be restarted as an outpatient as her blod pressure improves. Please continue to measure her CBC and BMP within 1 to 2 days of discharge. Her ongoing left knee pain was reviewed by orthopedics. Please see below provider instructions. Given her high medical needs recommend discharge to inpatient rehab at [facility]. (2) Acute kidney injury: (3) Pancytopenia: (4) Normocytic anemia: (5) UTI (urinary tract infection): (6) Pneumonia: (7) Coag negative Staphylococcus bacteremia: (8) Acute exacerbation of CHF (congestive heart failure): (9) Bilateral leg edema: (10) Acute respiratory failure with hypoxia: (11) Fall: (12) Atrial fibrillation with rapid ventricular response: (13) HTN (hypertension): (14) Kidney transplant recipient: (15) Diabetes mellitus type II, controlled: (16) AV fistula: (17) Hypercholesteremia: (18) Hypothyroidism: (19) Gout: Total Time Total Time Spent Total Time Spent (In Minutes): 40 Discharge Plan Discharge Items Patient Disposition: Transfer Inpatient Rehab Fac Reason For Visit: ACUTE RESPIRATORY FAILURE WITH HYPOXIA Discharge Diagnosis: Norovirus Pulmonary edema Fall Acute blood loss anemia Pancytopenia Asymptomatic bacteriuria and renal transplant patient Questionable pneumonia Activity: Resume your previous activity Non-emergency contact: Primary Care Provider Call non-emergency contact if: you have any medication questions and your symptoms worsen Follow-up/Referrals: Jennifer Crum MD [Primary Care Provider] - Alda Young PA-C [Physician Assistant Administrator] - 03/24/22 2:15 pm Diet: Carb Consistent or DM2, Heart Healthy and Low Sodium (2gm) Addtl Attending Provider Instructions: Delmi Page is a 76-year-old female admitted to [facility] from March 11-2021 due to fever, cough, leg swelling. She was diagnosed with norovirus, possible pneumonia, bacteriuria (asymptomatic but in a renal transplant patient), pulmonary edema. She was initially treated with Zosyn for the infections. This was switched to Unasyn to cover both pneumonia and Enterococcus faecalis in her urine. Due to the immunized state on tacrolimus and mycophenolate recommend total treatment of 14 days of antibiotics switched to Augmentin on discharge. Her diarrhea caused by norovirus improved during her admission. She developed pancytopenia which is since resolved likely due to norovirus with tacrolimus and mycophenolate. Due to pulmonary edema with acute hypoxic respiratory failure she was initially diuresed with intravenous Lasix. This caused acute renal injury with creatinine increased from 1.33 on admission to 1.84 (baseline 1.15). Suspect this was just due to overdiuresis and since switching back to her usual oral Lasix 40 mg p.o. twice daily her creatinine has slowly improved to 1.48. She has noticed increased swelling in her left arm at this dose but likely this is more due to vein insufficiency with her AV fistula on her left arm. Tacrolimus level 5.1 within normal limits. Mycophenolate level was pending at discharge. Although pancytopenia due to norovirus improved without intervention her anemia did not. Suspect this was due to acute blood loss anemia from her fall causing significant ecchymosis on the right side of her chest and hemarthrosis of the left knee. She required 2 units blood transfusion during her hospitalization. Hemoglobin stable at 9.1 on discharge on her usual Eliquis. Lisinopril discontinued by nephrology due to relatively low BP but this may need to be restarted as an outpatient as her blod pressure improves. Please continue to measure her CBC and BMP within 1 to 2 days of discharge. Her ongoing left knee pain was reviewed by orthopedics. Please see below provider instructions. Given her high medical needs recommend discharge to inpatient rehab at [facility]. Add Juvenile Officer Provider Instructions: Orthopedics evaluation: Weight bear as tolerated left lower extremity Ice to left knee as needed Elevate left lower leg as needed for pain/swelling. Logan stocking for compression as needed, on during the day, off at night Use walker to assist with ambulation. Allowed for full range of motion left knee, hip and ankle as tolerated. Call [phone] with any questions. Would also recommend follow up with Dr. Soares in approximately 2-3 weeks. Call for an appointment. Pending Studies at Discharge: No Stand-Alone Forms: [facility] Skilled Items Patient informed of condition?: Yes DNR: No Discharge Level of Care: Acute rehab Communicable Disease: Yes (Norovirus) Discharge Prognosis: Stable Lines: None Urinary Catheter: No Medications and DC Order Prescriptions: New amoxicillin-pot clavulanate 875-125 mg tablet 1 tab PO BID 9 Days Qty: 18 RF: 0 Continued multivitamin Tablet 1 tab PO QAM Qty: 0 RF: 0 omega 4-wes-bmd-fish oil [Fish Oil] 1,000 mg (120 mg-180 mg) Capsule 1,000 mg PO BID Qty: 0 RF: 0 folic acid 1 mg Tablet 1 mg PO QAM Qty: 0 RF: 0 lutein 20 mg Capsule 20 mg PO QPM Qty: 0 RF: 0 (DME) OneTouch Ultra Blue Test Strip Strip See Dose Instructions .ROUTE .MEDSUPPLY Qty: 100 RF: 1 magnesium oxide 400 mg (241.3 mg magnesium) tablet 400 mg PO BID Qty: 180 RF: 3 Lantus Solostar U-100 Insulin 100 unit/mL (3 mL) insulin pen 5 unit SUBCUT QAM Qty: 15 RF: 3 simvastatin 20 mg tablet 20 mg PO HS Qty: 90 RF: 3 Eliquis 5 mg tablet 5 mg PO BID Qty: 180 RF: 3 metoprolol tartrate 25 mg tablet 37.5 mg PO BID 90 Days Qty: 270 RF: 3 diltiazem HCl [Cartia XT] 240 mg capsule,extended release 24hr 240 mg PO QAM Qty: 90 RF: 3 famotidine 20 mg tablet 20 mg PO BID Qty: 60 RF: 5 tacrolimus 0.5 mg capsule 0.5 mg PO Q12 RF: 0 furosemide 40 mg tablet 40 mg PO BID RF: 0 Hold Instructions: 3 days zoledronic basx-vpyijzik-tvrdp [Reclast] 5 mg/100 mL piggyback 5 mg IV YEARLY Qty: 100 RF: 0 (DME) lancets [OneTouch Delica Plus Lancet] 33 gauge misc See Dose Instructions .ROUTE .MEDSUPPLY Qty: 100 RF: 0 mycophenolate mofetil 250 mg capsule 250 mg PO Q12 RF: 0 Ocuvite Adult 50 Plus 250-5-1 mg Capsule 1 cap PO BID RF: 0 allopurinol 300 mg tablet 300 mg PO UD RF: 0 levothyroxine 75 mcg tablet 75 mcg PO DAILYBB RF: 0 Discontinued lisinopril 10 mg tablet 10 mg PO HS RF: 0 Discharge Orders: Discharge Order (Routine); Ordered 03/17/22 Ordered By: Hamlet Montgomery/Other Patient Handouts: Managing Type 2 Diabetes Admission Data Admit Date/Time: 03/11/22 22:59 Attending Provider: Hamlet Murray Admit Provider: El Cohen Primary Care Provider: Jennifer Crum Other Providers: [facility] ; [place] ; El Cohen ; Will Breaux ; Meño Wilkinson ; Jovon Soares Other Interventions: Discharge Summary Assessment (RN) Last Done: 03/17/22 17:38 Coding Level of Care Code D/C DAY MANAGEMENT >30 MINS Diagnoses Norovirus A08.11 Acute kidney injury N17.9 Pancytopenia D61.818 Normocytic anemia D64.9 UTI (urinary tract infection) N39.0 Pneumonia J18.9 Coag negative Staphylococcus bacteremia R78.81; B95.7 Acute exacerbation of CHF (congestive heart failure) I50.9 Heart failure type: unspecified Bilateral leg edema R60.0 Acute respiratory failure with hypoxia J96.01 Fall W19.XXXA Atrial fibrillation with rapid ventricular response I48.91 HTN (hypertension) I10 Hypertension type: primary hypertension Kidney transplant recipient Z94.0 Diabetes mellitus type II, controlled E11.42; Z79.4 Diabetes mellitus complication detail: with polyneuropathy Diabetes mellitus complication status: with neurologic complications Diabetes mellitus showcase trimmer insulin use: with showcase trimmer use AV fistula I77.0 Hypercholesteremia E78.00 Hypothyroidism E03.9 Hypothyroidism type: unspecified Gout [id number] Chronicity: chronic Gout etiology: due to renal impairment Gout site: unspecified site Presence of tophus: without tophus
[2022-03-17] MEDS ORDERED: FUROSEMIDE 40 MG/4 ML VIAL IV SCH (21:00)
[2022-03-18 13:21] LABS: MPA Glucuronide 45.6 mcg/mL (35.0-100.0); Mycophenolic Acid <0.5 mcg/mL (1.0-3.5)
--- NOTE | 2022-03-23 14:13 | Coding Query ---
CODING QUERY To promote full compliance with coding requirements relating to patient care, provider participation is requested in all cases of laser/electro optics technician uncertainty. Please assist us with the question(s) below: Coding Question(s): Please specify below, in your clinical opinion, regarding Pulmonary Edema. ( X ) Acute Pulmonary Edema. Please Specify further below, the most likely source of the Pulmonary Edema. ( ) likely due to Acute Exacerbation of CHF ( ) likely due to Possible Pneumonia ( X ) likely due to Other: Please Specify Chronic kidney disease ( ) due to unknown likely source ( ) Chronic or Unspecified Pulmonary Edema. Please Specify further below, the most likely source of the Pulmonary Edema. ( ) likely due to Acute Exacerbation of CHF ( ) likely due to Possible Pneumonia ( ) likely due to Other: Please Specify ( ) due to unknown likely source ( ) Other Pulmonary Edema. Please Specify Physician's Response(s): Thank you Carley Nova Principal Diagnosis: "that condition established after study, to be chiefly responsible for occasioning the admission of the patient to the hospital for care." Co-Existing Principal Diagnosis: "when two or more diagnoses equally meet the criteria for principal diagnosis as determined by the circumstances of admission, diagnostic work up, and/or therapy provided, and the Alphabetic Index, Tabular List, or another coding guideline does not provide sequencing direction, any one of the diagnoses may be sequenced first." "When the physician has documented what appears to be a current diagnosis in the body of the record, but has not included the diagnosis in the final diagnostic statement, the physician should be asked whether the diagnosis should be added." ([facility] 2 QTR90. p3-4) YOU
--- NOTE | 2022-03-23 14:17 | Coding Query ---
CODING QUERY To promote full compliance with coding requirements relating to patient care, provider participation is requested in all cases of anthropology department chair uncertainty. Please assist us with the question(s) below: Coding Question(s): The Discharge Summary documents both asymptomatic bacteriuria and UTI. Please clarify below, in your clinical opinion. ( X ) UTI is ruled-out and there is asymptomatic bacteriuria ( ) UTI is still possible ( ) Other: Please Specify Physician's Response(s): Thank you Carley Nova Principal Diagnosis: "that condition established after study, to be chiefly responsible for occasioning the admission of the patient to the hospital for care." Co-Existing Principal Diagnosis: "when two or more diagnoses equally meet the criteria for principal diagnosis as determined by the circumstances of admission, diagnostic work up, and/or therapy provided, and the Alphabetic Index, Tabular List, or another coding guideline does not provide sequencing direction, any one of the diagnoses may be sequenced first." "When the physician has documented what appears to be a current diagnosis in the body of the record, but has not included the diagnosis in the final diagnostic statement, the physician should be asked whether the diagnosis should be added." (Source [facility]oding [facility] 2 QTR90. p3-4) YOU
== END 2022-03-17 18:09 | DRG 193 ==
LOC: ED 19:13 → 2S 22:59 → SUATTDRO 22:59 → 2S 03-12 00:08 → 2W 03-15 22:17
DX: N17.9 Acute kidney failure, unspecified; Z79.4 Long term (current) use of insulin; M10.9 Gout, unspecified; H35.30 Unspecified macular degeneration; Z83.3 Family history of diabetes mellitus; D62 Acute posthemorrhagic anemia; Z79.890 Hormone replacement therapy; J81.0 Acute pulmonary edema; A08.11 Acute gastroenteropathy due to Norwalk agent; I50.9 Heart failure, unspecified; S20.20XA Contusion of thorax, unspecified, initial encounter; E11.42 Type 2 diabetes mellitus with diabetic polyneuropathy; E78.00 Pure hypercholesterolemia, unspecified; E11.22 Type 2 diabetes mellitus with diabetic chronic kidney disease; E03.9 Hypothyroidism, unspecified; M25.561 Pain in right knee; N18.31 Chronic kidney disease, stage 3a; R82.71 Bacteriuria; Z79.899 Other long term (current) drug therapy; S80.02XA Contusion of left knee, initial encounter; Z79.01 Long term (current) use of anticoagulants; D84.821 Immunodeficiency due to drugs; M25.062 Hemarthrosis, left knee; J96.01 Acute respiratory failure with hypoxia; I13.0 Hypertensive heart and chronic kidney disease with heart failure and stage 1 through stage 4 chronic kidney disease, or unspecified chronic kidney disease; Z82.49 Family history of ischemic heart disease and other diseases of the circulatory system; T86.12 Kidney transplant failure; D61.818 Other pancytopenia; I48.0 Paroxysmal atrial fibrillation; Z20.822 Contact with and (suspected) exposure to COVID-19; J18.9 Pneumonia, unspecified organism; M54.50 Low back pain, unspecified; W19.XXXA Unspecified fall, initial encounter; Y83.0 Surgical operation with transplant of whole organ as the cause of abnormal reaction of the patient, or of later complication, without mention of misadventure at the time of the procedure; Z91.048 Other nonmedicinal substance allergy status

== ENCOUNTER 2023-04-26 10:20 | Inpatient (IN) ==
--- NOTE | 2023-04-26 10:52 | Emergency Department Note ---
Impression & Plan CHF (congestive heart failure), Elevated troponin ED Provider Note NAME: ROXANNE CHANDLER AGE: 77 SEX: F : 1945 ARRIVES VIA: Walk-In INFORMANT: Patient ED PROVIDER(S): Uriah Pizano DO CHIEF COMPLAINT: SOB and swelling in legs HPI: Patient is a 77-year-old female who presents to the ER for swelling of her bilateral lower extremities. This started about 2 weeks ago. She normally does not have any swelling. Does have a known kidney transplant. Swelling is in the legs and arms. She admits to shortness of breath now with movement. Denies any chest pain. No belly pain, nausea, vomiting, or diarrhea. No dysuria, urgency, or frequency. No other exacerbating or remitting factors. She takes 80 mg of Lasix twice a day. She has not missed any doses. She saw her PCP and was referred in for further evaluation. PAST MEDICAL HISTORY:See Below PAST SURGICAL HISTORY:See Below FAMILY HISTORY:See Below SOCIAL HISTORY:See Below HOME MEDICATIONS:See Below ALLERGIES:See Below VITALS:See Below PHYSICAL EXAMINATION: GENERAL: Sitting up in bed, alert, well appearing, well nourished, no distress, non-toxic EYE EXAM: normal conjunctiva. OROPHARYNX: no exudate, no erythema, lips, buccal mucosa, and tongue normal and mucous membranes are moist NECK: supple, no nuchal rigidity, no adenopathy, non-tender LUNGS: Clear to auscultation. Normal chest wall mechanics HEART: no murmurs, S1 normal and S2 normal ABDOMEN: abdomen soft, non-tender, normo-active bowel sounds, no masses, no rebound or guarding. UPPER EXTREMITIES: upper extremities are grossly normal. LOWER EXTREMITIES: Pitting edema in the lower extremities tracking up through into the mid to lower back. NEURO EXAM: Normal sensorium, cranial nerves II-XII grossly intact, normal speech, no gross weakness of arms, no gross weakness of legs. MEDICAL DECISION MAKING: Patient is a 77-year-old female who presents to the ER for above-stated complaint sent in by PCP with daughter at bedside. History was obtained from both patient and daughter. IV was established blood work was obtained. Externa l records reviewed. Labs show no significant leukocytosis or anemia. Mild thrombocytopenia at 118. BMP with LFTs bilirubin was unremarkable. Troponin was slightly elevated at 18.3. proBNP at 617. Lipase normal. COVID-negative. Chest x-ray does suggest failure. Patient was given IV Lasix. Discussed with the hospitalist. Admitted for further work-up. Triage Nursing notes reviewed. Limited review of prior medical records performed Vital Signs: reviewed and remarkable for HTN Differential diagnosis: Differential diagnoses includes but is not limited to pneumonia, bronchitis, COPD/Asthma exacerbation, pneumothorax, pulmonary embolism, congestive heart failure, acute coronary syndrome ER treatment provided: See below Diagnostics interpreted by me include EKG and cardiac monitoring as listed below: -Cardiac Monitoring: An order was placed for continuous cardiac monitoring. The monitor shows a rate of 84 with sinus rhythm. -ECG: A-fib rate 83 Normal axis No PVCs QTc 432 -Laboratory studies:Interpreted by me as stated above in MDM and shown below. Imaging studies: Xrays: As interpreted by me: Portable AP upright 1 view of the chest shows enlarged cardiac silhouette CTs show: none Consultation(s): As described in MDM Procedures:none Critical Care: None Past Med/Surg History Medical History Atrial fibrillation Atrial fibrillation with RVR Bilateral leg edema Diabetic peripheral neuropathy associated with type 2 diabetes mellitus Gastric ulcer History of dysplastic nevus HTN (hypertension) Hypercholesteremia Hyperparathyroidism Hypothyroidism Long-term current use of tacrolimus Macular degeneration Mitral regurgitation Osteoporosis Paroxysmal atrial fibrillation Personal history of diabetic foot ulcer Polycystic kidney disease Proliferative glomerulonephritis with nephrotic syndrome Thrombocytopenia Surgical History History of hysterectomy History of renal transplant (07/02/11) History of squamous cell carcinoma in situ of skin History of tonsillectomy Hx of cholecystectomy Kidney transplant recipient Family History Mother Diabetes Father Kidney disease Hypertension Son Kidney disease Sister Kidney disease Aunt Breast cancer Denies family history of Ovarian cancer Prostate cancer Myocardial infarction Colorectal cancer Social History Smoking Status: Never smoker Tobacco Type: Cigarettes Second Hand Exposure: No; Do You Dip or Chew Tobacco: No; Hx Alcohol Use: No Hx Substance Use: No Preferred Language: Czech Communication Ability: Effective Visual Impairment: No Limitations [employer] Rolls Required: No Beliefs That Will Affect Care: None marital status: Current Living Situation: Family current occupational status: retired Feels Safe at Home: Yes Diet: low salt Dental Care, Regularly: Yes Physical Activity Frequency: Does not Exercise Seatbelt Use: always Sunscreen Use: Yes Assistive Devices: Cane and Walker Allergies Allergies Allergy/AdvReac Type Severity Reaction Status Date / Time adhesive Allergy Intermediate ERYTHEMA Verified 04/26/23 09:27 WITH ADHESIVE TAPE, blisters No Known Drug Allergies Allergy Verified 04/26/23 09:27 Home Meds Home Medications Medication Instructions Recorded Confirmed multivitamin 1 tab PO QAM ##0 05/23/06 04/26/23 omega 3-ykh-beq-fish oil 1,000 mg 1,000 mg PO BID ##0 10/30/10 04/26/23 (120 mg-180 mg) capsule (Fish Oil) folic acid 1 mg tablet 1 mg PO QAM ##0 05/07/12 04/26/23 lutein 20 mg capsule 20 mg PO QPM ##0 11/11/14 04/26/23 lancets 33 gauge (OneTouch Delica #100 ea 06/15/19 04/26/23 Plus Lancet) tacrolimus 0.5 mg capsule, 0.5 mg PO Q12 08/28/19 04/26/23 immediate-release vit C,E,zinc,copper-wmxvb5b 250 1 cap PO BID 05/13/20 04/26/23 mg-lutein 5 mg-zeaxanthin 1 mg capsule (Ocuvite Adult 50 Plus) mycophenolate mofetil 250 mg 250 mg PO Q12 10/15/20 04/26/23 capsule acetaminophen 650 mg tablet 650 mg PO Q4H PRN Pain 03/23/22 04/26/23 fexofenadine 180 mg tablet 180 mg PO DAILY PRN Allergy 05/14/22 04/26/23 (Mariya Allergy) Symptoms albuterol sulfate 90 mcg/actuation 1 inh inhalation QID PRN Wheezing 04/26/23 04/26/23 aerosol inhaler (Ventolin HFA) Previous Rx's Medication Instructions Recorded magnesium oxide 400 mg (241.3 mg 400 mg PO BID #180 tabs 05/14/22 magnesium) tablet simvastatin 20 mg tablet 20 mg PO HS #90 tabs 07/06/22 apixaban 5 mg tablet (Eliquis) 5 mg PO BID #180 tabs 07/26/22 diltiazem HCl 180 mg 180 mg PO QAM #90 caps 07/30/22 capsule,extended release 24 hr lisinopril 20 mg tablet 20 mg PO HS #90 tabs 07/30/22 pen needle, diabetic 32 gauge x #100 ea 08/17/2232" (BD Ultra-Fine Germania Pen Needle) metoprolol tartrate 25 mg tablet 37.5 mg PO BID 90 days #270 tabs 09/22/22 insulin glargine 100 unit/mL (3 5 unit (0.05 mL) subcut QAM #15 mL 11/30/22 mL) subcutaneous pen (Lantus Solostar U-100 Insulin) allopurinol 300 mg tablet 300 mg PO DAILY #90 tabs 12/28/22 famotidine 20 mg tablet 20 mg PO BID #60 tabs 01/25/23 blood sugar diagnostic #100 ea 03/15/23 furosemide 40 mg tablet 80 mg PO BID #360 tabs 03/22/23 levothyroxine 88 mcg tablet 88 mcg PO DAILYBB #90 tabs 04/05/23 denosumab 60 mg/mL subcutaneous 60 mg subcut ONCE #1 mL 04/19/23 syringe Results & Data (ED) Vital Signs Vital Signs - 24 hr 04/26/23 10:26 04/26/23 10:42 04/26/23 12:15 Temperature 36.9 C Temperature Source Temporal Artery Scan Pulse Rate 86 82 Pulse Rate from SpO2 Sensor Pulse Rhythm Regular Pulse Strength Normal Respiratory Rate 24 Respiratory Effort / Characteristics Non-Labored Respiratory Depth Normal Respiratory Pattern Regular Blood Pressure 163/81 H Blood Pressure Mean 108 Blood Pressure Position Sitting Pulse Oximetry 95 92 Oxygen Delivery Method Room Air Room Air Sepsis Recent Fever Within 48 Hours No Sepsis New/Unexplained Change in Mental Status No Sepsis Action Taken by Nursing No Action Required 04/26/23 10:41 04/26/23 10:56 04/26/23 10:56 Temperature Temperature Source Pulse Rate 84 84 Pulse Rate from SpO2 Sensor 83 Pulse Rhythm Pulse Strength Respiratory Rate 28 H 24 Respiratory Effort / Characteristics Respiratory Depth Respiratory Pattern Blood Pressure 133/84 Blood Pressure Mean 95 Blood Pressure Position Pulse Oximetry 95 Oxygen Delivery Method Room Air Sepsis Recent Fever Within 48 Hours Sepsis New/Unexplained Change in Mental Status Sepsis Action Taken by Nursing 04/26/23 11:00 04/26/23 11:00 04/26/23 12:00 Temperature Temperature Source Pulse Rate 84 Pulse Rate from SpO2 Sensor 91 H Pulse Rhythm Pulse Strength Respiratory Rate 24 Respiratory Effort / Characteristics Respiratory Depth Respiratory Pattern Blood Pressure 135/76 137/84 Blood Pressure Mean 104 98 Blood Pressure Position Pulse Oximetry 93 Oxygen Delivery Method Room Air Sepsis Recent Fever Within 48 Hours Sepsis New/Unexplained Change in Mental Status Sepsis Action Taken by Nursing 04/26/23 12:00 04/26/23 13:00 04/26/23 13:00 Temperature Temperature Source Pulse Rate 77 79 Pulse Rate from SpO2 Sensor 80 81 Pulse Rhythm Pulse Strength Respiratory Rate 23 21 Respiratory Effort / Characteristics Respiratory Depth Respiratory Pattern Blood Pressure 146/74 H Blood Pressure Mean 85 Blood Pressure Position Pulse Oximetry 95 91 Oxygen Delivery Method Room Air Room Air Sepsis Recent Fever Within 48 Hours Sepsis New/Unexplained Change in Mental Status Sepsis Action Taken by Nursing Laboratory Data 04/26/23 10:58 04/26/23 10:58 Lab Results 04/26/23 04/26/23 04/26/23 Range/Units 10:58 10:58 10:58 WBC 8.17 (4.8-10.8) K/ul RBC 4.40 (4.20-5.40) M/uL Hgb 14.1 (12.0-16.0) g/dl Hct 41.2 (37.0-47.0) % MCV 93.6 (80.0-100.0) fL MCH 32.0 (25.0-34.0) pg MCHC 34.2 (32.0-36.0) g/dL RDW Std Deviation 64.6 H (36.4-46.3) fL RDW Coeff of Lidya 19.4 H (11.5-14.5) % Plt Count 118 L (130-400) K/uL Immature Gran % (Auto) 0.4 % Neut % (Auto) 81.1 % Lymph % (Auto) 8.9 % [place] % (Auto) 6.7 % Eos % (Auto) 2.3 % Baso % (Auto) 0.6 % Neut # (Auto) 6.62 H (1.40-6.50) K/uL Lymph # (Auto) 0.73 L (1.2-3.4) K/uL [place] # (Auto) 0.55 (0.11-0.59) K/uL Eos # (Auto) 0.19 (0-0.50) K/uL Baso # (Auto) 0.05 (0-0.2) K/uL Immature Gran # (Auto) 0.03 (0.01-0.20) K/uL Sodium 140 (136-145) mmol/L Potassium 4.2 (3.5-5.1) mmol/L Chloride 103 (98-107) mmol/L Carbon Dioxide 30 (21-32) mmol/L Anion Gap 7 (3-11) BUN 47 H (6-23) mg/dl Creatinine 1.47 H (0.6-1.2) mg/dl Est Cr Clr Drug Dosing Not Reportable Est GFR ( Amer) 39.8 ml/min Est GFR (Non-Af Amer) 34.3 ml/min BUN/Creatinine Ratio 32.0 H (10-20) Glucose 107 H (70-99(Fasting)) mg/dl POC Glucose (70-99) mg/dl Calcium 9.5 (8.6-10.3) mg/dl Total Bilirubin 1.1 H (0.2-1.0) mg/dl AST 16 (13-39) U/L ALT 9 (7-52) U/L Alkaline Phosphatase 102 (34-104) U/L Troponin I High Sens 18.3 H (0-14) pg/ml B-Natriuretic Peptide 617 H (0-100) pg/ml Total Protein 5.9 L (6.0-8.3) gm/dl Albumin 3.8 (3.4-5.0) gm/dl Globulin 2.1 L (2.5-4.0) gm/dl Albumin/Globulin Ratio 1.8 (0.9-2) Lipase 15 (11-82) U/L SARS-CoV-2, RNA, NAAT (NEGATIVE) 04/26/23 04/26/23 Range/Units 10:59 14:04 WBC (4.8-10.8) K/ul RBC (4.20-5.40) M/uL Hgb (12.0-16.0) g/dl Hct (37.0-47.0) % MCV (80.0-100.0) fL MCH (25.0-34.0) pg MCHC (32.0-36.0) g/dL RDW Std Deviation (36.4-46.3) fL RDW Coeff of Lidya (11.5-14.5) % Plt Count (130-400) K/uL Immature Gran % (Auto) % Neut % (Auto) % Lymph % (Auto) % [place] % (Auto) % Eos % (Auto) % Baso % (Auto) % Neut # (Auto) (1.40-6.50) K/uL Lymph # (Auto) (1.2-3.4) K/uL [place] # (Auto) (0.11-0.59) K/uL Eos # (Auto) (0-0.50) K/uL Baso # (Auto) (0-0.2) K/uL Immature Gran # (Auto) (0.01-0.20) K/uL Sodium (136-145) mmol/L Potassium (3.5-5.1) mmol/L Chloride (98-107) mmol/L Carbon Dioxide (21-32) mmol/L Anion Gap (3-11) BUN (6-23) mg/dl Creatinine (0.6-1.2) mg/dl Est Cr Clr Drug Dosing Est GFR ( Amer) ml/min Est GFR (Non-Af Amer) ml/min BUN/Creatinine Ratio (10-20) Glucose (70-99(Fasting)) mg/dl POC Glucose 98 (70-99) mg/dl Calcium (8.6-10.3) mg/dl Total Bilirubin (0.2-1.0) mg/dl AST (13-39) U/L ALT (7-52) U/L Alkaline Phosphatase (34-104) U/L Troponin I High Sens (0-14) pg/ml B-Natriuretic Peptide (0-100) pg/ml Total Protein (6.0-8.3) gm/dl Albumin (3.4-5.0) gm/dl Globulin (2.5-4.0) gm/dl Albumin/Globulin Ratio (0.9-2) Lipase (11-82) U/L SARS-CoV-2, RNA, NAAT NEGATIVE (NEGATIVE) Administered Medications Discontinued Medications Furosemide (Furosemide 40 Mg/4 Ml Vial) 80 mg IV NOW STA Stop: 04/26/23 12:11 Last Admin: 04/26/23 12:35 Dose: 80 mg Documented By: [facility]NE Imaging Data Radiologist's Impression: Chest X-Ray 04/26/23 10:42 SINGLE VIEW CHEST CLINICAL HISTORY: Atypical chest pain. FINDINGS: 2 AP, portable, upright chest radiographs are compared to study dated 04/11/2023. The examination is degraded by portable technique and apical lordotic positioning. The heart is enlarged. There is pulmonary vascular congestion. Bilateral airspace opacities likely represent interstitial edema. There are small pleural effusions with dependent consolidation. No pneumothorax is seen. The skeletal structures are osteopenic. The bony thorax is grossly intact. Degenerative change is noted in the shoulders and spine. IMPRESSION: 1. Cardiomegaly with evidence of congestive failure. 2. Bilateral airspace opacities likely represent pulmonary edema. Correlate clinically for evidence of a superimposed infectious/inflammatory pneumonitis. Radiographic follow-up to resolution is recommended. 3. Layering pleural effusions with dependent consolidation. ACT 112: Negative or not required by law. Electronically signed by: Vinny Haley M.D. 04/26/2023 11:27 AM Discharge Plan Visit Data Chief Complaint: Swelling/Edema to Extremity Stated Complaint: GAINED 20LBS OF FLUID ED Provider: Uriah Pizano Discharge Problem: CHF (congestive heart failure), Elevated troponin Forms Stand Alone Forms: My [facility] [place] Prescriptions Prescriptions: No Action multivitamin Tablet 1 tab PO QAM Qty: 0 omega 4-snh-snf-fish oil [Fish Oil] 1,000 mg (120 mg-180 mg) Capsule 1,000 mg PO BID Qty: 0 folic acid 1 mg Tablet 1 mg PO QAM Qty: 0 lutein 20 mg Capsule 20 mg PO QPM Qty: 0 simvastatin 20 mg tablet 20 mg PO HS Qty: 90 3RF Eliquis 5 mg tablet 5 mg PO BID Qty: 180 3RF (DME) pen needle, diabetic [BD Ultra-Fine Germania Pen Needle] 32 gauge x 5/32" needle See Rx Instructions .Route Qty: 100 3RF Rx Instructions: Inject insulin daily as directed metoprolol tartrate 25 mg tablet 37.5 mg PO BID 90 Days Qty: 270 3RF insulin glargine [Lantus Solostar U-100 Insulin] 100 unit/mL (3 mL) insulin pen 5 unit SUBCUT QAM Qty: 15 3RF allopurinol 300 mg tablet 300 mg PO DAILY Qty: 90 1RF Rx Instructions: 300mg po in the morning famotidine 20 mg tablet 20 mg PO BID Qty: 60 5RF (DME) OneTouch Ultra Blue Test Strip Strip See Rx Instructions .ROUTE .MEDSUPPLY Qty: 100 1RF Rx Instructions: Test 4 times daily furosemide 40 mg tablet 80 mg PO BID Qty: 360 3RF Hold Instructions: 3 days levothyroxine 88 mcg tablet 88 mcg PO DAILYBB Qty: 90 3RF denosumab 60 mg/mL syringe 60 mg subcut ONCE Qty: 1 0RF Rx Instructions: twice a yr. gets next week tacrolimus 0.5 mg capsule 0.5 mg PO Q12 lisinopril 20 mg tablet 20 mg PO HS Qty: 90 3RF diltiazem HCl 180 mg capsule,extended release 24hr 180 mg PO QAM Qty: 90 3RF fexofenadine [Mariya Allergy] 180 mg tablet 180 mg PO DAILY PRN (Reason: Allergy Symptoms) magnesium oxide 400 mg (241.3 mg magnesium) tablet 400 mg PO BID Qty: 180 3RF (DME) lancets [OneTouch Delica Plus Lancet] 33 gauge misc See Dose Instructions .ROUTE .MEDSUPPLY Qty: 100 Rx Instructions: As directed mycophenolate mofetil 250 mg capsule 250 mg PO Q12 Ocuvite Adult 50 Plus 250-5-1 mg Capsule 1 cap PO BID acetaminophen 650 mg Tablet 650 mg PO Q4H PRN (Reason: Pain) albuterol sulfate [Ventolin HFA] 90 mcg/actuation HFA aerosol inhaler 1 inh inhalation QID PRN (Reason: Wheezing) Referrals Referrals: Jennifer Crum MD [Primary Care Provider] -
--- NOTE | 2023-04-26 11:28 | XRay Report ---
SINGLE VIEW CHEST CLINICAL HISTORY: Atypical chest pain. FINDINGS: 2 AP, portable, upright chest radiographs are compared to study dated 04/11/2023. The examin ation is degraded by portable technique and apical lordotic positioning. The heart is enlarged. There is pulmonary vascular congestion. Bilateral airspace opacities likely represent interstitial edema. There are small pleural effusions with dependent consolidation. No pneumothorax is seen. The skeletal structures are osteopenic. The bony thorax is grossly intact. Degenerative change is noted in the sh oulders and spine. IMPRESSION: 1. Cardiomegaly with evidence of congestive failure. 2. Bilateral airspace opacities likely represent pulmonary edema. Correlate clinically for evidence o f a superimposed infectious/inflammatory pneumonitis. Radiographic follow-up to resolution is recomme nded. 3. Layering pleural effusions with dependent consolidation. ACT 112: Negative or not required by law. Electronically signed by: Vinny Haley M.D. 04/26/2023 11:27 AM
[2023-04-26 11:30] LABS: Basophils # (auto) 0.05 K/uL (0-0.2); Basophils % (auto) 0.6 %; Eosinophils # (auto) 0.19 K/uL (0-0.50); Eosinophils % (auto) 2.3 %; Hematocrit (blood only) 41.2 % (37.0-47.0); Hemoglobin 14.1 g/dl (12.0-16.0); Immature Granulocytes # (auto) 0.03 K/uL (0.01-0.20); Immature Granulocytes % (auto) 0.4 %; Lymphocytes # (auto) 0.73 K/uL (1.2-3.4); Lymphocytes % (auto) 8.9 %; Mean Corpuscular Hgb Conc 34.2 g/dL (32.0-36.0); Mean Corpuscular Volume 93.6 fL (80.0-100.0); Monocytes # (auto) 0.55 K/uL (0.11-0.59); Monocytes % (auto) 6.7 %; Neutrophils # (auto) 6.62 K/uL (1.40-6.50); Neutrophils % (auto) 81.1 %; Platelet Count 118 K/uL (130-400); RDW Coefficient of Variation 19.4 % (11.5-14.5); RDW Standard Deviation 64.6 fL (36.4-46.3); White Blood Count 8.17 K/ul (4.8-10.8)
[2023-04-26 11:42] LABS: Alanine Aminotransferase 9 U/L (7-52); Albumin Globulin Ratio 1.8 (0.9-2); Albumin Level 3.8 gm/dl (3.4-5.0); Alkaline Phosphatase 102 U/L (34-104); Anion Gap 7 (3-11); Aspartate Aminotransferase 16 U/L (13-39); Bilirubin,Total 1.1 mg/dl (0.2-1.0); Blood Urea Nitrogen 47 mg/dl (6-23); Calcium 9.5 mg/dl (8.6-10.3); Carbon Dioxide 30 mmol/L (21-32); Chloride 103 mmol/L (98-107); Est GFR (African American) 39.8 ml/min; Est GFR (Non-African American) 34.3 ml/min; Globulin 2.1 gm/dl (2.5-4.0); Glucose 107 mg/dl (70-99(Fasting)); Lipase 15 U/L (11-82); Potassium 4.2 mmol/L (3.5-5.1); Sodium 140 mmol/L (136-145); Total Protein 5.9 gm/dl (6.0-8.3)
[2023-04-26 11:48] LABS: Troponin I High Sensitivity 18.3 pg/ml (0-14)
[2023-04-26] MEDS ORDERED: FUROSEMIDE 40 MG/4 ML VIAL IV STA (12:10)
--- NOTE | 2023-04-26 12:15 | History & Physical Report ---
Date of Service April 26, 2023 Assessment & Plan (1) Acute exacerbation of CHF (congestive heart failure): Plan: Acute on chronic CHFpEF, acute, unstable Previously stable on Lasix Creatinine 1.47, baseline appears around 1.35 High-sensitivity troponin 18.3, repeat pending and trended. BNP 617, was 614 02/2022 at prior admission with [facility] at that time Patient denies any dietary change or exacerbating factors, has been compliant with Lasix but has had continued increase in her weight. Given no other triggering factors and mildly elevated troponin likely demand will obtain limited echo to evaluate for wall motion change COVID-negative No transaminitis No leukocytosis TTE 03/14/2022: Minimal change from 2021. LV SF normal, left atrium mildly dilated, moderate mitral regurg, RVSP 40-50 mmHg. EF 60 to 65%. Weight on admit 112.5 KG. Weight 02/2023 and earlier 04/11/2023 103-105 kg. Pt thinks dry weight ~96kg - Lasix 80mg BID17 IV, Kitchen placed for I&O tacking - Low salt diet - SpO2 goal >94% (2) CKD (chronic kidney disease): Plan: SHERLYN on CKD w/ hx PCKD and DM2, history of renal transplant, acute on chronic, unstable Baseline creatinine around 1.35, acutely elevated 1.47. Patient is overtly hypervolemic, will trend daily and continue Lasix. LORRAINE held x1 day Allograft transplant, with good filtration. Continue tacrolimus and mycophenolate. Tacrolimus levels checked earlier this month on 04/04, levels were 8.3 therapeutic at that time - BMP daily, renally adjust medications as needed (3) Atrial fibrillation: Plan: Paroxysmal A-fib, chronic, stable Continue apixaban 5 mg twice daily Continue diltiazem 180 mg XR daily, metoprolol tartrate 37.5 mg p.o. twice daily Admitting EKG A-fib, no RVR, QTc 432, no significant change compared to prior. No ST segment changes Adequately rate controlled on admission (4) Diabetes mellitus type II, controlled: Plan: Type II DM, chronic, stable Weight-based basal 9 units twice daily, CF 45, ratio 15 Home basal 5 units daily continued with slightly loosened CF 50/ratio 20 given low home requirements and good admitting control/BSG 107 Goal BSG [id number] Glucose checks AC/at bedtime, DM diet (5) HTN (hypertension): Plan: Hypertension, chronic Lisinopril temporarily held for upper normal creatinine versus SHERLYN, scheduled to resume 04/27 Home furosemide 80 mg twice daily converted to IV as noted Home metoprolol, diltiazem continued (6) Hypercholesteremia: Plan: Hyperlipidemia, chronic Continue simvastatin 20 mg p.o. 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, FSGS also noted IgG repletion deferred to periodic IgG levels checked as outpatient (8) Gout: Plan: Gout, chronic, stable No acute exacerbation Continue allopurinol (9) Hypothyroidism: Plan: Hypothyroidism, chronic recently adjusted Continue Synthroid TSH 04/04 was elevated with Synthroid increased to 88 at that time Defer TSH check for another 2 weeks (10) History of kidney transplant: Plan: - as noted, cellcept/tacrolimus order - No dysuria/leukocytosis/fever/chills on admit Plan Allergic rhinitis, chronic Continue fexofenadine daily as needed DVT prophylaxis: Anticoagulated Disposition: PCU CODE STATUS: Full code Diet: Low-salt, heart healthy History of Present Illness Primary Care Provider: Jennifer Crum MD Delmi is a 77-year-old female with a past medical history of diabetic CKD s/p renal transplant 1995, type II DM, atrial fibrillation, hypothyroidism, hypercholesterolemia, gout, hyperparathyroidism, NMSC who presents with 20 pound weight gain, swelling of bilateral lower extremities. She is short of breath with exertion. She is not hypoxic in the ER. On arrival to to the ER CXR shows pulmonary vascular congestion, bilateral airspace opacities consistent with interstitial edema, dependent consolidation/small pleural effusions. Creatinine baseline is around 1.21.35, creatinine is elevated to 1.47 on admission. BNP is elevated at 617. While patient is not hypoxic due to fluid overloaded on c hest x-ray, worsening symptoms, desaturation with activity, and renal transplant status patient is recommended for inpatient admission for diuresis with renal function monitoring. Delmi comes in with her daughter for 2 weeks of worsening fluid retention. +swelling in her legs, arms, and abdomen.+orthopnea. No chest pain or chest pressure. +SoB with exertion, feels ok when at rest and sitting up in bed. Has been taking lasix twice daily, does not miss any doses. Follows with Dr. Collins who has her on 80mg twice daily. UOP has not changed. No urinary hesitancy or diffiuclty urination. Does not know her dry weight, thinks this is around 96 kg. She reports she does watch her salt intake, denies dietary indiscretion including chips, crackers, salted food, soups, hotdogs, or change in diet over the weekend. She reports her swelling has just gradually gotten worse in her legs, both arms (left arm is with a fistula not accessed in 20 years and with more swelling at baseline in the right) and even up her back and abdomen. She has not had any pain. She does rapidly feel short of breath trying to walk to the bathroom, denies shortness of breath while sitting in bed during HPI. Does desaturate to around 87-88% with conversation while in room with good waveform on pulse ox Medical History: Reviewed Medications: Reviewed. Did not take any medications this morning Surgical History: Reviewed Family history: Reviewed Allergies: Reviewed Social History: Denies tobacco/alcohol use Code Status: Full code. Discussed with Delmi and her daughter at the bedside. She reports she would want full code/full measures, and if resuscitation were to lead to a quality of life not consistent with her goals she would want her family to have the discussion of whether to withdraw care at that point Allergies Allergy/AdvReac Type Severity Reaction Status Date / Time adhesive Allergy Intermediate ERYTHEMA Verified 04/26/23 09:27 WITH ADHESIVE TAPE, blisters No Known Drug Allergies Allergy Verified 04/26/23 09:27 Home Medications Medication Instructions Recorded Confirmed Type multivitamin 1 tab PO QAM ##0 05/23/06 04/26/23 History omega 6-iip-jcx-fish oil 1,000 mg 1,000 mg PO BID ##0 10/30/10 04/26/23 History (120 mg-180 mg) capsule (Fish Oil) folic acid 1 mg tablet 1 mg PO QAM ##0 05/07/12 04/26/23 History lutein 20 mg capsule 20 mg PO QPM ##0 11/11/14 04/26/23 History lancets 33 gauge (OneTouch Delica #100 ea 06/15/19 04/26/23 History Plus Lancet) tacrolimus 0.5 mg capsule, 0.5 mg PO Q12 08/28/19 04/26/23 History immediate-release vit C,E,zinc,copper-enusx2a 250 1 cap PO BID 05/13/20 04/26/23 History mg-lutein 5 mg-zeaxanthin 1 mg capsule (Ocuvite Adult 50 Plus) mycophenolate mofetil 250 mg 250 mg PO Q12 10/15/20 04/26/23 History capsule acetaminophen 650 mg tablet 650 mg PO Q4H PRN Pain 03/23/22 04/26/23 History fexofenadine 180 mg tablet 180 mg PO DAILY PRN Allergy 05/14/22 04/26/23 History (Mariya Allergy) Symptoms magnesium oxide 400 mg (241.3 mg 400 mg PO BID #180 tabs 05/14/22 04/26/23 Rx magnesium) tablet simvastatin 20 mg tablet 20 mg PO HS #90 tabs 07/06/22 04/26/23 Rx apixaban 5 mg tablet (Eliquis) 5 mg PO BID #180 tabs 07/26/22 04/26/23 Rx diltiazem HCl 180 mg 180 mg PO QAM #90 caps 07/30/22 04/26/23 Rx capsule,extended release 24 hr lisinopril 20 mg tablet 20 mg PO HS #90 tabs 07/30/22 04/26/23 Rx pen needle, diabetic 32 gauge x #100 ea 08/17/22 04/26/23 Rx 5/32" (BD Ultra-Fine Germania Pen Needle) metoprolol tartrate 25 mg tablet 37.5 mg PO BID 90 days #270 tabs 09/22/22 04/26/23 Rx insulin glargine 100 unit/mL (3 5 unit (0.05 mL) subcut QAM #15 mL 11/30/22 04/26/23 Rx mL) subcutaneous pen (Lantus Solostar U-100 Insulin) allopurinol 300 mg tablet 300 mg PO DAILY #90 tabs 12/28/22 04/26/23 Rx famotidine 20 mg tablet 20 mg PO BID #60 tabs 01/25/23 04/26/23 Rx blood sugar diagnostic #100 ea 03/15/23 04/26/23 Rx furosemide 40 mg tablet 80 mg PO BID #360 tabs 03/22/23 04/26/23 Rx levothyroxine 88 mcg tablet 88 mcg PO DAILYBB #90 tabs 04/05/23 04/26/23 Rx denosumab 60 mg/mL subcutaneous 60 mg subcut ONCE #1 mL 04/19/23 04/26/23 Rx syringe albuterol sulfate 90 mcg/actuation 1 inh inhalation QID PRN Wheezing 04/26/23 04/26/23 History aerosol inhaler (Ventolin HFA) Past Med/Surg History Medical History Atrial fibrillation Atrial fibrillation with RVR Bilateral leg edema Diabetic peripheral neuropathy associated with type 2 diabetes mellitus Gastric ulcer History of dysplastic nevus HTN (hypertension) Hypercholesteremia Hyperparathyroidism Hypothyroidism Long-term current use of tacrolimus Macular degeneration Mitral regurgitation Osteoporosis Paroxysmal atrial fibrillation Personal history of diabetic foot ulcer Polycystic kidney disease Proliferative glomerulonephritis with nephrotic syndrome Thrombocytopenia Surgical History History of hysterectomy History of renal transplant (07/02/11) History of squamous cell carcinoma in situ of skin History of tonsillectomy Hx of cholecystectomy Kidney transplant recipient Family History Mother Diabetes Father Kidney disease Hypertension Son Kidney disease Sister Kidney disease Aunt Breast cancer Denies family history of Ovarian cancer Prostate cancer Myocardial infarction Colorectal cancer Social History Smoking Status: Never smoker Tobacco Type: Cigarettes Second Hand Exposure: No; Do You Dip or Chew Tobacco: No; Hx Alcohol Use: No Hx Substance Use: No Preferred Language: Austrian Communication Ability: Effective Visual Impairment: No Limitations Platform Loader Required: No Beliefs That Will Affect Care: None marital status: Current Living Situation: Family current occupational status: retired Feels Safe at Home: Yes Diet: low salt Dental Care, Regularly: Yes Physical Activity Frequency: Does not Exercise Seatbelt Use: always Sunscreen Use: Yes Assistive Devices: Cane and Walker Review of Systems Review of Systems: All systems reviewed & are unremarkable except as noted in HPI & below Physical Exam Physical Exam: General: A&Ox3. NAD. Cooperative. HEENT: Atraumatic, normocephalic. Vision/hearing grossly intact. Pulm: +bibasilar rales. Symmetrical chest rise. No increased work of breathing. No respiratory distress. Cardiac: irir, +sm. Radial pulses intact and symmetrical. +JVD. Abdominal: Reducible umbilical hernia. Nontender, nondistended, soft. BS present. +diffuse pitting abdominal edema including the back Ext: warm/dry. 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 +diffuse severe pitting edema through the lower extremities and thighs bilaterally. Sensation to soft touch intact but diminished qualitatively in the feet bilaterally. Upper extremities with left greater than right swelling in the arms at baseline and pitting edema through the hands. Left upper extremity with brachiocephalic fistula in place with good thrill, no overlying erythema/warmth Results & Data Results & Data Vital Signs (Past 12 Hours) Vital Signs Temp Pulse Resp BP Pulse Ox O2 Del Method 04/26/23 10:42 92 Room Air 04/26/23 10:26 36.9 C 86 24 163/81 H 95 Room Air PG Care Time/CCT Total # of Minutes Spent Total Time Spent with Patient: Total time spent is greater than 50% in coordination of care (as documented) at patient's floor/unit and/or counseling patient: Coding Level of Care Code 34403 INT INP/OBS CARE 3/75MIN Diagnoses Acute exacerbation of CHF (congestive heart failure) I50.9 Heart failure type: unspecified CKD (chronic kidney disease) N18.9 Atrial fibrillation I48.0 Atrial fibrillation type: paroxysmal Diabetes mellitus type II, controlled E11.42; Z79.4 Diabetes mellitus senior living insulin use: with senior living use Diabetes mellitus complication status: with neurologic complications Diabetes mellitus complication detail: with polyneuropathy HTN (hypertension) I10 Hypertension type: primary hypertension Hypercholesteremia E78.00 Monoclonal gammopathy D47.2 Gout M1A.30X0 Gout site: unspecified site Gout etiology: due to renal impairment Chronicity: chronic Presence of tophus: without tophus Hypothyroidism E03.9 Hypothyroidism type: unspecified History of kidney transplant Z94.0 (1) Acute exacerbation of CHF (congestive heart failure) Heart failure type: unspecified Qualified Code(s): I50.9 - Heart failure, unspecified (3) Atrial fibrillation Atrial fibrillation type: paroxysmal Qualified Code(s): I48.0 - Paroxysmal atrial fibrillation (4) Diabetes mellitus type II, controlled Diabetes mellitus senior living insulin use: with terminal clerk use Diabetes mellitus complication status: with neurologic complications Diabetes mellitus complication detail: with polyneuropathy Qualified Code(s): E11.42 - Type 2 diabetes mellitus with diabetic polyneuropathy; Z79.4 - shelter (current) use of insulin (5) HTN (hypertension) Hypertension type: primary hypertension Qualified Code(s): I10 - Essential (primary) hypertension (8) Gout Gout site: unspecified site Gout etiology: due to renal impairment Chronicity: chronic Presence of tophus: without tophus Qualified Code(s): 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 (9) Hypothyroidism Hypothyroidism type: unspecified Qualified Code(s): E03.9 - Hypothyroidism, unspecified
[2023-04-26] MEDS ORDERED: GLUCOSE 10 TAB/TUBE PO PRN (12:44)
[2023-04-26] MEDS ORDERED: GLUCOSE 40% GEL 15 GM TUBE PO PRN (12:44)
[2023-04-26] MEDS ORDERED: TACROLIMUS 0.5 MG CAP PO STA (12:44)
[2023-04-26] MEDS ORDERED: CARBOHYDRATES FOR HYPOGLYCEMIA PO PRN (12:44)
[2023-04-26] MEDS ORDERED: dilTIAZem HCL 180 MG CAPCR PO STA (12:44)
[2023-04-26] MEDS ORDERED: APIXABAN 5 MG TABLET PO STA (12:44)
[2023-04-26] MEDS ORDERED: GLUCAGON FOR INJ 1 MG VIAL SQ PRN (12:44)
[2023-04-26] MEDS ORDERED: DEXTROSE 50% 50 ML SYRINGE IV PRN (12:44)
[2023-04-26] MEDS ORDERED: METOPROLOL TARTRATE 25 MG TAB PO ONE (12:45)
[2023-04-26] MEDS ORDERED: MYCOPHENOLATE MOFETIL 250 MG CAP PO ONE (12:46)
[2023-04-26] MEDS ORDERED: allopurinoL 300 MG TAB PO ONE (12:47)
--- NOTE | 2023-04-26 14:02 | Electrocardiogram Report ---
Test Reason : Blood Pressure : / mmHG Vent. Rate : 083 BPM Atrial Rate : 000 BPM P-R Int : 000 ms QRS Dur : 076 ms QT Int : 368 ms P-R-T Axes : 000 059 021 degrees QTc Int : 432 ms Atrial fibrillation Poor R wave progression, consider anterior NE vs. lead placement vs. LVH Abnormal ECG When compared with ECG of 13-MAR-2022 05:52, No significant change was found Confirmed by Braxton Fontenot ([id number]) on 04/26/2023 2:02:02 PM Referred By: Sapna Amos Confirmed By:Braxton Fontenot
[2023-04-26] MEDS: LANTUS PER UNIT CHARGE SQ SCH (14:28)
[2023-04-26] MEDS ORDERED: FEXOFENADINE HCL 180 MG TAB PO PRN (17:10)
[2023-04-26] MEDS ORDERED: ALBUTEROL HFA 8 GM INHALER INH PRN (17:10)
[2023-04-26] MEDS ORDERED: ACETAMINOPHEN 325 MG TAB PO PRN (17:10)
[2023-04-26] MEDS: INSULIN ASPART PER UNIT CHARGE SC SCH ×2 (17:47→20:10)
--- NOTE | 2023-04-26 18:10 | XCELERA ---
[id number]
[2023-04-26] MEDS: FUROSEMIDE 10 MG/ML 10 ML VIAL IV SCH (18:20)
[2023-04-26] MEDS: TACROLIMUS 0.5 MG CAP PO SCH (20:07)
[2023-04-26] MEDS: METOPROLOL TARTRATE 25 MG TAB PO SCH (20:07)
[2023-04-26] MEDS: SIMVASTATIN 20 MG TAB PO SCH (20:07)
[2023-04-26] MEDS: MYCOPHENOLATE MOFETIL 250 MG CAP PO SCH (20:07)
[2023-04-26] MEDS: APIXABAN 5 MG TABLET PO SCH (20:08)
[2023-04-26] MEDS: MAGNESIUM OXIDE 400 MG TAB PO SCH (20:08)
[2023-04-26] MEDS: FAMOTIDINE 20 MG TAB PO SCH (20:08)
[2023-04-27] MEDS: LEVOTHYROXINE SODIUM 88 MCG TABLET PO SCH (06:14)
[2023-04-27 06:17] LABS: Basophils # (auto) 0.05 K/uL (0-0.2); Basophils % (auto) 0.8 %; Eosinophils # (auto) 0.25 K/uL (0-0.50); Eosinophils % (auto) 4.2 %; Hematocrit (blood only) 37.4 % (37.0-47.0); Hemoglobin 12.3 g/dl (12.0-16.0); Immature Granulocytes # (auto) 0.02 K/uL (0.01-0.20); Immature Granulocytes % (auto) 0.3 %; Lymphocytes # (auto) 0.79 K/uL (1.2-3.4); Lymphocytes % (auto) 13.4 %; Mean Corpuscular Hemoglobin 31.4 pg (25.0-34.0); Mean Corpuscular Hgb Conc 32.9 g/dL (32.0-36.0); Mean Corpuscular Volume 95.4 fL (80.0-100.0); Mean Platelet Volume 12.2 fL (9.4-12.4); Monocytes # (auto) 0.48 K/uL (0.11-0.59); Monocytes % (auto) 8.1 %; Neutrophils # (auto) 4.31 K/uL (1.40-6.50); Neutrophils % (auto) 73.2 %; Platelet Count 120 K/uL (130-400); RDW Coefficient of Variation 19.5 % (11.5-14.5); RDW Standard Deviation 66.1 fL (36.4-46.3); Red Blood Count 3.92 M/uL (4.20-5.40)
[2023-04-27 06:38] LABS: Calcium 8.9 mg/dl (8.6-10.3); Potassium 4.2 mmol/L (3.5-5.1)
[2023-04-27 06:44] LABS: BUN Creatinine Ratio 33.1 (10-20); Creatinine Clr Calc Pharmacy 39.7 ml/min; Est GFR (African American) 41.5 ml/min; Est GFR (Non-African American) 35.8 ml/min
[2023-04-27 07:05] LABS: Estimated Average Glucose 126 mg/dl
--- NOTE | 2023-04-27 07:42 | Hospitalist Progress Note ---
Date of Service April 27, 2023 Assessment & Plan (1) Acute exacerbation of CHF (congestive heart failure): Plan: Acute on chronic CHFpEF, acute, unstable. BNP elevation 617 (614 w/ CHF admit 02/2022) along w/ 20lb weight gain reported CXR on admission w/ cardiomegaly w/ congestive failure, b/l opacities likely representing pulmonary edema. layering plerual effusions w/ dependent consolidation COVID negative ECHO no wma, LV normal in structure/function, EF 60-65%. Moderate MR, RVSP elevated 50-60mmhg Placed on Lasix 80mg IV BID, kidney function stable Net negative 2.6L thus far, weight 111.7kg --> 104.7kg (thinks dry weight ~96kg) Continue IV lasix, low na diet Supplemental O2 to maintain sats -- 94% on 2L NC (no O2 at home) Added incentive spirometer Check overnight pulse ox Repeat CXR in AM for f/u. No sputum production/fever/leukocytosis at present Monitor weights, I&O, labs in AM *Of note, recently had her synthroid increased earlier this month -- could potentially be hypothyroid/afib w/ faster rates/volume overload? Will defer repeating given most recent adjustment and continue 88mg daily but patient will need to have repeat TFT in another 2-3 weeks with PCP (2) Hypothyroidism: Plan: Hypothyroidism, chronic recently adjusted per patient in the past month from 75mcg to 88mcg TSH elevated to 5.7 04/04/23 (prior to that was in the 7s in February w/ weight gain/cough at that time) Repeat TSH w/ PCP in another 2 weeks recommended (3) CKD (chronic kidney disease): Plan: SHERLYN on CKD w/ hx PCKD and DM2, history of renal transplant, acute on chronic, unstable Allograft transplant, with good filtration. Continue tacrolimus and mycophenolate. Tacrolimus levels checked earlier this month on 04/04, levels were 8.3 therapeutic at that time Cr 1.47 on admission (baseline ~1.35) Volume overloaded as above, lisinopril on hold w/ diuretics and will hold for this evening on continued lasix and plan to resume tomorrow Kidney function stable on repeat labs and will monitor (4) Atrial fibrillation: Plan: Paroxysmal A-fib, chronic, stable --> currently in afib with rates 60-70s Remains on eliquis 5mg BID, dilt 180mg XR, metoprolol 37.5mg BID Mag 1.9, 1gm IV ordered. K>[address] changes on admit, no CP reported Monitoring on telemetry (5) Diabetes mellitus type II, controlled: Plan: Type II DM, chronic, stable A1c 6.0 Weight-based basal 9 units twice daily, CF 45, ratio 15 Home basal 5 units daily continued with slightly loosened CF 50/ratio 20 given low home requirements and good admitting control/BSG 107 BSGs acceptable -- monitor Continue DM diet (6) HTN (hypertension): Plan: Hypertension, chronic. stable Lisinopril held while diuresing, plan to resume tomorrow Lasix IV BID as above, remains on usual metoprolol, diltiazem Monitor (7) Hypercholesteremia: Plan: Hyperlipidemia, chronic Continue simvastatin 20 mg p.o. 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, FSGS also noted IgG repletion deferred to periodic IgG levels checked as outpatient -With thrombocytopenia (9) Gout: Plan: Gout, chronic, stable No acute exacerbation Continue allopurinol Allergic rhinitis, chronic Continue fexofenadine daily as needed (10) History of kidney transplant: Plan: - as noted, cellcept/tacrolimus order - No dysuria/leukocytosis/fever/chills on admit Plan continued inpatient stay on diuresis check overnight pulse ox will need repeat TFT as outpatient/Synthroid adjustment as needed continue to monitor on telemetry Admission and Anticipated Discharge Date Admission Date: April 26, 2023 Supervising Physician Co-Signing Physician Notes EMILIA Supervision Note: I did not personally see or examine the patient today, but I verified all lloyd points of EMILIA Daugherty's assessment and plan with the following exceptions/additions: Consider nephrology consultation given complex history of nephrotic range proteinuria, renal transplant, with volume overload Subjective evaluated in room 110, PCU overflow. patient reports feeling much better than admission. Net negative 2.6L thus far, decreased edema. Does have some warmth to LE feeling more like sunburn but no overt cellulitis and could have been from swelling but will monitor w/ diuresis. No fever/chills. No chest pain. Breathing improved, not on O2 at baseline. Does endorse daytime fatigue/sleepiness, no known prior hx of MARIA ESTHER but will check overnight pulse ox. Discussed continuing IV furosemide for today and possible switch to PO. She noticed more upper leg swelling this time compared to the past. No dietary indiscretion and actually reports she had been feeling so poorly during picnic she did not really eat much at all. +Cough, no sputum production. RN to provide incentive spirometer. Questions/concerns addressed at this time. 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 Skin: LE warmth/slight erythema (?baseline), no streaking/drainage/ulcerations Psych: AOx3, pleasant and cooperative Results & Data Results & Data Vital Signs (Past 12 Hours) Vital Signs Temp Pulse Pulse Resp BP BP Pulse Ox 04/27/23 07:18 72 17 137/62 94 04/27/23 07:40 36.7 C 04/27/23 06:22 36.5 C 72 22 123/68 93 04/27/23 03:38 36.4 C L 67 23 121/66 93 04/27/23 00:00 69 04/26/23 20:00 04/27/23 00:00 36.4 C L 68 21 132/65 95 04/26/23 19:53 76 23 91 04/26/23 19:53 36.4 C L 79 18 131/72 94 O2 Del Method O2 Flow Rate 04/27/23 07:18 Nasal Cannula 2 04/27/23 07:40 04/27/23 06:22 Nasal Cannula 2 04/27/23 03:38 Nasal Cannula 2 04/27/23 00:00 04/26/23 20:00 Nasal Cannula 2 04/27/23 00:00 Nasal Cannula 2 04/26/23 19:53 04/26/23 19:53 Nasal Cannula 2 Laboratory Results 04/27/23 04/27/23 04/27/23 Range/Units 07:16 05:30 05:30 WBC (4.8-10.8) K/ul RBC (4.20-5.40) M/uL Hgb (12.0-16.0) g/dl Hct (37.0-47.0) % MCV (80.0-100.0) fL MCH (25.0-34.0) pg MCHC (32.0-36.0) g/dL RDW Std Deviation (36.4-46.3) fL RDW Coeff of Lidya (11.5-14.5) % Plt Count (130-400) K/uL MPV (9.4-12.4) fL Immature Gran % (Auto) % Neut % (Auto) % Lymph % (Auto) % [place]born % (Auto) % Eos % (Auto) % Baso % (Auto) % Neut # (Auto) (1.40-6.50) K/uL Lymph # (Auto) (1.2-3.4) K/uL [place]born # (Auto) (0.11-0.59) K/uL Eos # (Auto) (0-0.50) K/uL Baso # (Auto) (0-0.2) K/uL Immature Gran # (Auto) (0.01-0.20) K/uL Sodium (136-145) mmol/L Potassium (3.5-5.1) mmol/L Chloride (98-107) mmol/L Carbon Dioxide (21-32) mmol/L Anion Gap (3-11) BUN (6-23) mg/dl Creatinine (0.6-1.2) mg/dl Est Cr Clr Drug Dosing Est GFR ( Amer) ml/min Est GFR (Non-Af Amer) ml/min BUN/Creatinine Ratio (10-20) Glucose (70-99(Fasting)) mg/dl POC Glucose 81 (70-99) mg/dl Estimat Average Glucose 126 mg/dl Hemoglobin A1c 6.0 H (4.5-5.6) % Calcium (8.6-10.3) mg/dl Magnesium 1.9 (1.7-2.4) mg/dl Total Bilirubin (0.2-1.0) mg/dl AST (13-39) U/L ALT (7-52) U/L Alkaline Phosphatase (34-104) U/L Troponin I High Sens (0-14) pg/ml B-Natriuretic Peptide (0-100) pg/ml Total Protein (6.0-8.3) gm/dl Albumin (3.4-5.0) gm/dl Globulin (2.5-4.0) gm/dl Albumin/Globulin Ratio (0.9-2) Lipase (11-82) U/L Nasal Screen MRSA (PCR) (Negative) SARS-CoV-2, RNA, NAAT (NEGATIVE) 04/27/23 04/27/23 04/26/23 Range/Units 05:30 05:30 20:02 WBC 5.90 (4.8-10.8) K/ul RBC 3.92 L (4.20-5.40) M/uL Hgb 12.3 (12.0-16.0) g/dl Hct 37.4 (37.0-47.0) % MCV 95.4 (80.0-100.0) fL MCH 31.4 (25.0-34.0) pg MCHC 32.9 (32.0-36.0) g/dL RDW Std Deviation 66.1 H (36.4-46.3) fL RDW Coeff of Lidya 19.5 H (11.5-14.5) % Plt Count 120 L (130-400) K/uL MPV 12.2 (9.4-12.4) fL Immature Gran % (Auto) 0.3 % Neut % (Auto) 73.2 % Lymph % (Auto) 13.4 % Sanborn % (Auto) 8.1 % Eos % (Auto) 4.2 % Baso % (Auto) 0.8 % Neut # (Auto) 4.31 (1.40-6.50) K/uL Lymph # (Auto) 0.79 L (1.2-3.4) K/uL Sanborn # (Auto) 0.48 (0.11-0.59) K/uL Eos # (Auto) 0.25 (0-0.50) K/uL Baso # (Auto) 0.05 (0-0.2) K/uL Immature Gran # (Auto) 0.02 (0.01-0.20) K/uL Sodium 140 (136-145) mmol/L Potassium 4.2 (3.5-5.1) mmol/L Chloride 106 (98-107) mmol/L Carbon Dioxide 28 (21-32) mmol/L Anion Gap 6 (3-11) BUN 47 H (6-23) mg/dl Creatinine 1.42 H (0.6-1.2) mg/dl Est Cr Clr Drug Dosing 39.7 Est GFR ( Amer) 41.5 ml/min Est GFR (Non-Af Amer) 35.8 ml/min BUN/Creatinine Ratio 33.1 H (10-20) Glucose 85 (70-99(Fasting)) mg/dl POC Glucose 110 H (70-99) mg/dl Estimat Average Glucose mg/dl Hemoglobin A1c (4.5-5.6) % Calcium 8.9 (8.6-10.3) mg/dl Magnesium (1.7-2.4) mg/dl Total Bilirubin (0.2-1.0) mg/dl AST (13-39) U/L ALT (7-52) U/L Alkaline Phosphatase (34-104) U/L Troponin I High Sens (0-14) pg/ml B-Natriuretic Peptide (0-100) pg/ml Total Protein (6.0-8.3) gm/dl Albumin (3.4-5.0) gm/dl Globulin (2.5-4.0) gm/dl Albumin/Globulin Ratio (0.9-2) Lipase (11-82) U/L Nasal Screen MRSA (PCR) (Negative) SARS-CoV-2, RNA, NAAT (NEGATIVE) 04/26/23 04/26/23 04/26/23 Range/Units 16:45 16:39 15:33 WBC (4.8-10.8) K/ul RBC (4.20-5.40) M/uL Hgb (12.0-16.0) g/dl Hct (37.0-47.0) % MCV (80.0-100.0) fL MCH (25.0-34.0) pg MCHC (32.0-36.0) g/dL RDW Std Deviation (36.4-46.3) fL RDW Coeff of Lidya (11.5-14.5) % Plt Count (130-400) K/uL MPV (9.4-12.4) fL Immature Gran % (Auto) % Neut % (Auto) % Lymph % (Auto) % Sanborn % (Auto) % Eos % (Auto) % Baso % (Auto) % Neut # (Auto) (1.40-6.50) K/uL Lymph # (Auto) (1.2-3.4) K/uL Sanborn # (Auto) (0.11-0.59) K/uL Eos # (Auto) (0-0.50) K/uL Baso # (Auto) (0-0.2) K/uL Immature Gran # (Auto) (0.01-0.20) K/uL Sodium (136-145) mmol/L Potassium (3.5-5.1) mmol/L Chloride (98-107) mmol/L Carbon Dioxide (21-32) mmol/L Anion Gap (3-11) BUN (6-23) mg/dl Creatinine (0.6-1.2) mg/dl Est Cr Clr Drug Dosing Est GFR ( Amer) ml/min Est GFR (Non-Af Amer) ml/min BUN/Creatinine Ratio (10-20) Glucose (70-99(Fasting)) mg/dl POC Glucose 94 (70-99) mg/dl Estimat Average Glucose mg/dl Hemoglobin A1c (4.5-5.6) % Calcium (8.6-10.3) mg/dl Magnesium (1.7-2.4) mg/dl Total Bilirubin (0.2-1.0) mg/dl AST (13-39) U/L ALT (7-52) U/L Alkaline Phosphatase (34-104) U/L Troponin I High Sens 18.4 H (0-14) pg/ml B-Natriuretic Peptide (0-100) pg/ml Total Protein (6.0-8.3) gm/dl Albumin (3.4-5.0) gm/dl Globulin (2.5-4.0) gm/dl Albumin/Globulin Ratio (0.9-2) Lipase (11-82) U/L Nasal Screen MRSA (PCR) Negative (Negative) SARS-CoV-2, RNA, NAAT (NEGATIVE) 04/26/23 04/26/23 04/26/23 Range/Units 14:04 10:59 10:58 WBC (4.8-10.8) K/ul RBC (4.20-5.40) M/uL Hgb (12.0-16.0) g/dl Hct (37.0-47.0) % MCV (80.0-100.0) fL MCH (25.0-34.0) pg MCHC (32.0-36.0) g/dL RDW Std Deviation (36.4-46.3) fL RDW Coeff of Lidya (11.5-14.5) % Plt Count (130-400) K/uL MPV (9.4-12.4) fL Immature Gran % (Auto) % Neut % (Auto) % Lymph % (Auto) % San[place] % (Auto) % Eos % (Auto) % Baso % (Auto) % Neut # (Auto) (1.40-6.50) K/uL Lymph # (Auto) (1.2-3.4) K/uL Sanborn # (Auto) (0.11-0.59) K/uL Eos # (Auto) (0-0.50) K/uL Baso # (Auto) (0-0.2) K/uL Immature Gran # (Auto) (0.01-0.20) K/uL Sodium (136-145) mmol/L Potassium (3.5-5.1) mmol/L Chloride (98-107) mmol/L Carbon Dioxide (21-32) mmol/L Anion Gap (3-11) BUN (6-23) mg/dl Creatinine (0.6-1.2) mg/dl Est Cr Clr Drug Dosing Est GFR ( Amer) ml/min Est GFR (Non-Af Amer) ml/min BUN/Creatinine Ratio (10-20) Glucose (70-99(Fasting)) mg/dl POC Glucose 98 (70-99) mg/dl Estimat Average Glucose mg/dl Hemoglobin A1c (4.5-5.6) % Calcium (8.6-10.3) mg/dl Magnesium (1.7-2.4) mg/dl Total Bilirubin (0.2-1.0) mg/dl AST (13-39) U/L ALT (7-52) U/L Alkaline Phosphatase (34-104) U/L Troponin I High Sens (0-14) pg/ml B-Natriuretic Peptide 617 H (0-100) pg/ml Total Protein (6.0-8.3) gm/dl Albumin (3.4-5.0) gm/dl Globulin (2.5-4.0) gm/dl Albumin/Globulin Ratio (0.9-2) Lipase (11-82) U/L Nasal Screen MRSA (PCR) (Negative) SARS-CoV-2, RNA, NAAT NEGATIVE (NEGATIVE) 04/26/23 04/26/23 Range/Units 10:58 10:58 WBC 8.17 (4.8-10.8) K/ul RBC 4.40 (4.20-5.40) M/uL Hgb 14.1 (12.0-16.0) g/dl Hct 41.2 (37.0-47.0) % MCV 93.6 (80.0-100.0) fL MCH 32.0 (25.0-34.0) pg MCHC 34.2 (32.0-36.0) g/dL RDW Std Deviation 64.6 H (36.4-46.3) fL RDW Coeff of Lidya 19.4 H (11.5-14.5) % Plt Count 118 L (130-400) K/uL MPV (9.4-12.4) fL Immature Gran % (Auto) 0.4 % Neut % (Auto) 81.1 % Lymph % (Auto) 8.9 % San[place] % (Auto) 6.7 % Eos % (Auto) 2.3 % Baso % (Auto) 0.6 % Neut # (Auto) 6.62 H (1.40-6.50) K/uL Lymph # (Auto) 0.73 L (1.2-3.4) K/uL [place] # (Auto) 0.55 (0.11-0.59) K/uL Eos # (Auto) 0.19 (0-0.50) K/uL Baso # (Auto) 0.05 (0-0.2) K/uL Immature Gran # (Auto) 0.03 (0.01-0.20) K/uL Sodium 140 (136-145) mmol/L Potassium 4.2 (3.5-5.1) mmol/L Chloride 103 (98-107) mmol/L Carbon Dioxide 30 (21-32) mmol/L Anion Gap 7 (3-11) BUN 47 H (6-23) mg/dl Creatinine 1.47 H (0.6-1.2) mg/dl Est Cr Clr Drug Dosing Not Reportable Est GFR ( Amer) 39.8 ml/min Est GFR (Non-Af Amer) 34.3 ml/min BUN/Creatinine Ratio 32.0 H (10-20) Glucose 107 H (70-99(Fasting)) mg/dl POC Glucose (70-99) mg/dl Estimat Average Glucose mg/dl Hemoglobin A1c (4.5-5.6) % Calcium 9.5 (8.6-10.3) mg/dl Magnesium (1.7-2.4) mg/dl Total Bilirubin 1.1 H (0.2-1.0) mg/dl AST 16 (13-39) U/L ALT 9 (7-52) U/L Alkaline Phosphatase 102 (34-104) U/L Troponin I High Sens 18.3 H (0-14) pg/ml B-Natriuretic Peptide (0-100) pg/ml Total Protein 5.9 L (6.0-8.3) gm/dl Albumin 3.8 (3.4-5.0) gm/dl Globulin 2.1 L (2.5-4.0) gm/dl Albumin/Globulin Ratio 1.8 (0.9-2) Lipase 15 (11-82) U/L Nasal Screen MRSA (PCR) (Negative) SARS-CoV-2, RNA, NAAT (NEGATIVE) Diagnostic Findings Chest X-Ray 04/26/23 10:42 SINGLE VIEW CHEST CLINICAL HISTORY: Atypical chest pain. FINDINGS: 2 AP, portable, upright chest radiographs are compared to study dated 04/11/2023. The examination is degraded by portable technique and apical lordotic positioning. The heart is enlarged. There is pulmonary vascular congestion. Bilateral airspace opacities likely represent interstitial edema. There are small pleural effusions with dependent consolidation. No pneumothorax is seen. The skeletal structures are osteopenic. The bony thorax is grossly intact. Degenerative change is noted in the shoulders and spine. IMPRESSION: 1. Cardiomegaly with evidence of congestive failure. 2. Bilateral airspace opacities likely represent pulmonary edema. Correlate clinically for evidence of a superimposed infectious/inflammatory pneumonitis. Radiographic follow-up to resolution is recommended. 3. Layering pleural effusions with dependent consolidation. ACT 112: Negative or not required by law. Electronically signed by: Vinny Haley M.D. 04/26/2023 11:27 AM PG Care Time/CCT Total # of Minutes Spent Total Time Spent with Patient: Total time spent is greater than 50% in coordination of care (as documented) at patient's floor/unit and/or counseling patient: Coding Level of Care Code 53230 SUB INP/OBS CARE 3/50MIN Diagnoses Acute exacerbation of CHF (congestive heart failure) I50.9 Heart failure type: unspecified Hypothyroidism E03.9 Hypothyroidism type: unspecified CKD (chronic kidney disease) N18.9 Atrial fibrillation I48.0 Atrial fibrillation type: paroxysmal Diabetes mellitus type II, controlled E11.42; Z79.4 Diabetes mellitus complication detail: with polyneuropathy Diabetes mellitus complication status: with neurologic complications Diabetes mellitus shelter insulin use: with shelter use HTN (hypertension) I10 Hypertension type: primary hypertension Hypercholesteremia E78.00 Monoclonal gammopathy D47.2 Gout [id number].[id number] Chronicity: chronic Gout etiology: due to renal impairment Gout site: unspecified site Presence of tophus: without tophus History of kidney transplant Z94.0 (1) Acute exacerbation of CHF (congestive heart failure) Heart failure type: unspecified Qualified Code(s): I50.9 - Heart failure, unspecified (2) Hypothyroidism Hypothyroidism type: unspecified Qualified Code(s): E03.9 - Hypothyroidism, unspecified (4) Atrial fibrillation Atrial fibrillation type: paroxysmal Qualified Code(s): I48.0 - Paroxysmal atrial fibrillation (5) Diabetes mellitus type II, controlled Diabetes mellitus complication detail: with polyneuropathy Diabetes mellitus complication status: with neurologic complications 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
[2023-04-27] MEDS: INSULIN ASPART PER UNIT CHARGE SC SCH ×4 (08:17→20:34)
[2023-04-27] MEDS: MAGNESIUM OXIDE 400 MG TAB PO SCH ×2 (08:18→20:23)
[2023-04-27] MEDS: FAMOTIDINE 20 MG TAB PO SCH ×2 (08:18→20:24)
[2023-04-27] MEDS: dilTIAZem HCL 180 MG CAPCR PO SCH (08:18)
[2023-04-27] MEDS: FOLIC ACID 1 MG TAB PO SCH (08:18)
[2023-04-27] MEDS: APIXABAN 5 MG TABLET PO SCH ×2 (08:18→20:24)
[2023-04-27] MEDS: TACROLIMUS 0.5 MG CAP PO SCH ×2 (08:18→20:22)
[2023-04-27] MEDS: allopurinoL 300 MG TAB PO SCH (08:18)
[2023-04-27] MEDS: METOPROLOL TARTRATE 25 MG TAB PO SCH ×2 (08:19→20:23)
[2023-04-27] MEDS: FUROSEMIDE 10 MG/ML 10 ML VIAL IV SCH ×2 (08:19→16:47)
[2023-04-27] MEDS: MYCOPHENOLATE MOFETIL 250 MG CAP PO SCH ×2 (08:19→20:22)
[2023-04-27] MEDS: LANTUS PER UNIT CHARGE SQ SCH (08:27)
[2023-04-27] MEDS ORDERED: MAGNESIUM SULFATE / D5W 1 GM/100 ML BAG IV ONE (09:30)
[2023-04-27] MEDS: SIMVASTATIN 20 MG TAB PO SCH (20:24)
[2023-04-27] MEDS ORDERED: lisinopril 20 MG TAB PO SCH (21:00)
[2023-04-28] MEDS: LEVOTHYROXINE SODIUM 88 MCG TABLET PO SCH (05:52)
[2023-04-28 06:05] LABS: Basophils # (auto) 0.06 K/uL (0-0.2); Basophils % (auto) 1.1 %; Eosinophils # (auto) 0.28 K/uL (0-0.50); Eosinophils % (auto) 4.9 %; Hematocrit (blood only) 36.7 % (37.0-47.0); Hemoglobin 12.6 g/dl (12.0-16.0); Immature Granulocytes # (auto) 0.02 K/uL (0.01-0.20); Immature Granulocytes % (auto) 0.4 %; Lymphocytes # (auto) 0.82 K/uL (1.2-3.4); Lymphocytes % (auto) 14.4 %; Mean Corpuscular Hemoglobin 31.6 pg (25.0-34.0); Mean Corpuscular Hgb Conc 34.3 g/dL (32.0-36.0); Mean Platelet Volume 11.7 fL (9.4-12.4); Monocytes % (auto) 8.8 %; Neutrophils # (auto) 4.03 K/uL (1.40-6.50); Neutrophils % (auto) 70.4 %; Platelet Count 115 K/uL (130-400); RDW Coefficient of Variation 19.3 % (11.5-14.5); RDW Standard Deviation 64.1 fL (36.4-46.3); Red Blood Count 3.99 M/uL (4.20-5.40); White Blood Count 5.71 K/ul (4.8-10.8)
[2023-04-28 06:08] LABS: BUN Creatinine Ratio 32.3 (10-20); Calcium 8.8 mg/dl (8.6-10.3); Creatinine Clr Calc Pharmacy 36.6 ml/min; Est GFR (African American) 37.3 ml/min; Est GFR (Non-African American) 32.2 ml/min; Potassium 4.3 mmol/L (3.5-5.1)
--- NOTE | 2023-04-28 07:53 | Hospitalist Progress Note ---
Date of Service April 28, 2023 Assessment & Plan (1) Acute exacerbation of CHF (congestive heart failure): Plan: Acute on chronic HFpEF, acute, unstable -- improving BNP elevation 617 (614 w/ CHF admit 02/2022) along w/ 20lb weight gain reported CXR w/ congestive failure, b/l opacities likely representing pulm edema with layering effusions/dependent consolidation ECHO no wma, LV normal in structure/function, EF 60-65%. Moderate MR, RVSP elevated 50-60mmhg Lasix 80mg IV BID Initially net negative -2.6L --> currently 3.3L and remains on BID lasix Monitor daily weights, I&O Weights -- inaccurate. ASked RN to recheck today, bed zeroed-- 110kg at present (111.7kg on admission) Nephrology also consulted given nephrotic range proteinuria, renal failure/volume overload/transplant patient Incentive spirometer Supplemental O2 to maintain sats CXR w/o significant change -- defer to nephrology but may require increased dose diuetics if not having significant improvement Overnight pulse ox -- dropped -- will need 2L HS and outpt sleep study (2) Hypothyroidism: Plan: Hypothyroidism, chronic recently adjusted per patient in the past month from 75mcg to 88mcg TSH elevated to 5.7 04/04/23 (prior to that was in the 7s in February w/ weight gain/cough at that time) Repeat TSH w/ PCP in another 2 weeks recommended (3) CKD (chronic kidney disease): Plan: SHERLYN on CKD w/ hx PCKD and DM2, history of renal transplant, acute on chronic, unstable Allograft transplant, with good filtration. Continue tacrolimus and mycophenolate. Tacrolimus levels checked earlier this month on 04/04, levels were 8.3 therapeutic at that time Cr 1.47 on admission (baseline ~1.35) -- currently 1.55/stable w/ diuretics Nephrology consulted as above -- appreciate recs/assistance Continue lasix 80mg IV BID for now Monitor BMP in AM (4) Atrial fibrillation: Plan: Paroxysmal A-fib, chronic, stable --> currently in afib with rates 60-70s Remains on eliquis 5mg BID, dilt 180mg XR, metoprolol 37.5mg BID Keep Mag ~2, K~4 No CP, monitoring on telemetry -- rates typically in the 60s, did have as low as 50s this morning (5) Diabetes mellitus type II, controlled: Plan: Type II DM, chronic, stable A1c 6.0 Weight-based basal 9 units twice daily, CF 45, ratio 15 Home basal 5 units daily continued with slightly loosened CF 50/ratio 20 given low home requirements and good admitting control BSGs acceptable and continue to monitor. DM diet (6) HTN (hypertension): Plan: Hypertension, chronic. stable 138/80 Continues on metoprolol, diltiazem Lisinopril resumed for this evening, remains on lasix BID as above Monitor (7) Hypercholesteremia: Plan: Hyperlipidemia, chronic Continue simvastatin 20 mg p.o. 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 Will continue to monitor progress while inpatient/continued discussions Admission and Anticipated Discharge Date Admission Date: April 26, 2023 Supervising Physician Co-Signing Physician Notes PA Supervision Note: I did not personally see or examine the patient today, but I verified all lloyd points of EMILIA Daugherty's assessment and plan with the following exceptions/additions: None Subjective eval this afternoon, working with therapy. she is hoping to avoid rehab/snf. states breathing/edema improving. currently on 2L. Recheck bedscale weight indicates wt 110.6kg this morning (was 112-113kg on admission). Nephrology consulted and continuing lasix IV BID Net negative -2.6 L 04/27, only having about 1L today. Continuing current dose No fever/chills, chest pain. No abdominal pain/nausea/vomiting. +BM x 2 She is hoping to get home by the weekend. Physical Exam Physical Exam: General: chronically ill appearing female getting up to chair with therapy, NAD HEENT: head normocephalic, atraumatic, mmm, +JVD Resp: decreased expiratory wheezing, improvement in air entry, no cough, diminished in the bases, on 2L 96% CV: irregularly irregular (rates in 60s), +systolic murmur, 1-2+ b/l edema, calves nontender RUE>LUE edema (at baseline), slightly decreased. limb ristricted on the right fistula in place +thrill GI: +BS, nontender, +edema (decreased) MSK/Neuro: no focal deficit, speech clear, answering questions appropriately L foot drop at baseline due to traumatic nerve injury. Skin: LE warmth/slight erythema (?baseline), no streaking/drainage/ulcerations Psych: AOx3, pleasant and cooperative Results & Data Results & Data Vital Signs (Past 12 Hours) Vital Signs Temp Pulse Pulse Pulse Pulse Resp BP 04/28/23 05:13 81 04/28/23 04:35 89 90 04/28/23 02:10 85 04/28/23 04:56 70 21 04/28/23 04:00 36.5 C 64 22 122/64 04/28/23 00:00 73 04/27/23 23:14 81 04/27/23 23:03 36.6 C 76 24 119/69 04/27/23 20:00 75 04/27/23 20:00 04/27/23 20:00 36.5 C 75 24 143/85 H Pulse Ox Pulse Ox Pulse Ox O2 Del Method O2 Del Method O2 Del Method O2 Flow Rate 04/28/23 05:13 93 Nasal Cannula 04/28/23 04:35 93 87 L Nasal Cannula Room Air 04/28/23 02:10 90 Room Air 04/28/23 04:56 93 Nasal Cannula 2 04/28/23 04:00 92 Room Air 04/28/23 00:00 04/27/23 23:14 93 Room Air 04/27/23 23:03 93 Room Air 04/27/23 20:00 04/27/23 20:00 Nasal Cannula 2 04/27/23 20:00 90 Room Air O2 Flow Rate 04/28/23 05:13 2 04/28/23 04:35 2 04/28/23 02:10 04/28/23 04:56 04/28/23 04:00 04/28/23 00:00 04/27/23 23:14 04/27/23 23:03 04/27/23 20:00 04/27/23 20:00 04/27/23 20:00 Laboratory Results 04/28/23 04/28/23 04/28/23 Range/Units 07:36 05:27 05:27 WBC 5.71 (4.8-10.8) K/ul RBC 3.99 L (4.20-5.40) M/uL Hgb 12.6 (12.0-16.0) g/dl Hct 36.7 L (37.0-47.0) % MCV 92.0 (80.0-100.0) fL MCH 31.6 (25.0-34.0) pg MCHC 34.3 (32.0-36.0) g/dL RDW Std Deviation 64.1 H (36.4-46.3) fL RDW Coeff of Lidya 19.3 H (11.5-14.5) % Plt Count 115 L (130-400) K/uL MPV 11.7 (9.4-12.4) fL Immature Gran % (Auto) 0.4 % Neut % (Auto) 70.4 % Lymph % (Auto) 14.4 % [place] % (Auto) 8.8 % Eos % (Auto) 4.9 % Baso % (Auto) 1.1 % Neut # (Auto) 4.03 (1.40-6.50) K/uL Lymph # (Auto) 0.82 L (1.2-3.4) K/uL [place] # (Auto) 0.50 (0.11-0.59) K/uL Eos # (Auto) 0.28 (0-0.50) K/uL Baso # (Auto) 0.06 (0-0.2) K/uL Immature Gran # (Auto) 0.02 (0.01-0.20) K/uL Sodium 139 (136-145) mmol/L Potassium 4.3 (3.5-5.1) mmol/L Chloride 104 (98-107) mmol/L Carbon Dioxide 29 (21-32) mmol/L Anion Gap 6 (3-11) BUN 50 H (6-23) mg/dl Creatinine 1.55 H (0.6-1.2) mg/dl Est Cr Clr Drug Dosing 36.6 ml/min Est GFR ( Amer) 37.3 ml/min Est GFR (Non-Af Amer) 32.2 ml/min BUN/Creatinine Ratio 32.3 H (10-20) Glucose 92 (70-99(Fasting)) mg/dl POC Glucose 87 (70-99) mg/dl Calcium 8.8 (8.6-10.3) mg/dl Magnesium 2.0 (1.7-2.4) mg/dl 04/27/23 04/27/23 04/27/23 Range/Units 19:55 16:02 11:05 WBC (4.8-10.8) K/ul RBC (4.20-5.40) M/uL Hgb (12.0-16.0) g/dl Hct (37.0-47.0) % MCV (80.0-100.0) fL MCH (25.0-34.0) pg MCHC (32.0-36.0) g/dL RDW Std Deviation (36.4-46.3) fL RDW Coeff of Lidya (11.5-14.5) % Plt Count (130-400) K/uL MPV (9.4-12.4) fL Immature Gran % (Auto) % Neut % (Auto) % Lymph % (Auto) % [place] % (Auto) % Eos % (Auto) % Baso % (Auto) % Neut # (Auto) (1.40-6.50) K/uL Lymph # (Auto) (1.2-3.4) K/uL [place] # (Auto) (0.11-0.59) K/uL Eos # (Auto) (0-0.50) K/uL Baso # (Auto) (0-0.2) K/uL Immature Gran # (Auto) (0.01-0.20) K/uL Sodium (136-145) mmol/L Potassium (3.5-5.1) mmol/L Chloride (98-107) mmol/L Carbon Dioxide (21-32) mmol/L Anion Gap (3-11) BUN (6-23) mg/dl Creatinine (0.6-1.2) mg/dl Est Cr Clr Drug Dosing ml/min Est GFR ( Amer) ml/min Est GFR (Non-Af Amer) ml/min BUN/Creatinine Ratio (10-20) Glucose (70-99(Fasting)) mg/dl POC Glucose 127 H 92 100 H (70-99) mg/dl Calcium (8.6-10.3) mg/dl Magnesium (1.7-2.4) mg/dl 04/27/23 Range/Units 05:30 WBC (4.8-10.8) K/ul RBC (4.20-5.40) M/uL Hgb (12.0-16.0) g/dl Hct (37.0-47.0) % MCV (80.0-100.0) fL MCH (25.0-34.0) pg MCHC (32.0-36.0) g/dL RDW Std Deviation (36.4-46.3) fL RDW Coeff of Lidya (11.5-14.5) % Plt Count (130-400) K/uL MPV (9.4-12.4) fL Immature Gran % (Auto) % Neut % (Auto) % Lymph % (Auto) % [place] % (Auto) % Eos % (Auto) % Baso % (Auto) % Neut # (Auto) (1.40-6.50) K/uL Lymph # (Auto) (1.2-3.4) K/uL [place] # (Auto) (0.11-0.59) K/uL Eos # (Auto) (0-0.50) K/uL Baso # (Auto) (0-0.2) K/uL Immature Gran # (Auto) (0.01-0.20) K/uL Sodium (136-145) mmol/L Potassium (3.5-5.1) mmol/L Chloride (98-107) mmol/L Carbon Dioxide (21-32) mmol/L Anion Gap (3-11) BUN (6-23) mg/dl Creatinine (0.6-1.2) mg/dl Est Cr Clr Drug Dosing ml/min Est GFR ( Amer) ml/min Est GFR (Non-Af Amer) ml/min BUN/Creatinine Ratio (10-20) Glucose (70-99(Fasting)) mg/dl POC Glucose (70-99) mg/dl Calcium (8.6-10.3) mg/dl Magnesium 1.9 (1.7-2.4) mg/dl PG Care Time/CCT Total # of Minutes Spent Total Time Spent with Patient: Total time spent is greater than 50% in coordination of care (as documented) at patient's floor/unit and/or counseling patient: Coding Level of Care Code 44144 SUB INP/OBS CARE 3/50MIN Diagnoses Acute exacerbation of CHF (congestive heart failure) I50.9 Heart failure type: unspecified Hypothyroidism E03.9 Hypothyroidism type: unspecified CKD (chronic kidney disease) N18.9 Atrial fibrillation I48.0 Atrial fibrillation type: paroxysmal Diabetes mellitus type II, controlled E11.42; Z79.4 Diabetes mellitus complication detail: with polyneuropathy Diabetes mellitus complication status: with neurologic complications Diabetes mellitus alf insulin use: with alf use HTN (hypertension) I10 Hypertension type: primary hypertension Hypercholesteremia E78.00 Monoclonal gammopathy D47.2 Gout M1A.30X0 Chronicity: chronic Gout etiology: due to renal impairment Gout site: unspecified site Presence of tophus: without tophus History of kidney transplant Z94.0 (1) Acute exacerbation of CHF (congestive heart failure) Heart failure type: unspecified Qualified Code(s): I50.9 - Heart failure, unspecified (2) Hypothyroidism Hypothyroidism type: unspecified Qualified Code(s): E03.9 - Hypothyroidism, unspecified (4) Atrial fibrillation Atrial fibrillation type: paroxysmal Qualified Code(s): I48.0 - Paroxysmal atrial fibrillation (5) Diabetes mellitus type II, controlled Diabetes mellitus complication detail: with polyneuropathy Diabetes mellitus complication status: with neurologic complications Diabetes mellitus alf insulin use: with alf use Qualified Code(s): E11.42 - Type 2 diabetes mellitus with diabetic polyneuropathy; 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
[2023-04-28] MEDS: INSULIN ASPART PER UNIT CHARGE SC SCH ×4 (08:20→21:29)
[2023-04-28] MEDS: allopurinoL 300 MG TAB PO SCH (08:21)
[2023-04-28] MEDS: MAGNESIUM OXIDE 400 MG TAB PO SCH ×2 (08:22→22:14)
[2023-04-28] MEDS: dilTIAZem HCL 180 MG CAPCR PO SCH (08:22)
[2023-04-28] MEDS: FAMOTIDINE 20 MG TAB PO SCH ×2 (08:22→22:13)
[2023-04-28] MEDS: APIXABAN 5 MG TABLET PO SCH ×2 (08:22→22:14)
[2023-04-28] MEDS: FOLIC ACID 1 MG TAB PO SCH (08:22)
[2023-04-28] MEDS: METOPROLOL TARTRATE 25 MG TAB PO SCH ×2 (08:23→22:15)
[2023-04-28] MEDS: TACROLIMUS 0.5 MG CAP PO SCH ×2 (08:23→22:16)
[2023-04-28] MEDS: MYCOPHENOLATE MOFETIL 250 MG CAP PO SCH ×2 (08:23→22:15)
[2023-04-28] MEDS: FUROSEMIDE 10 MG/ML 10 ML VIAL IV SCH ×2 (08:24→17:58)
[2023-04-28] MEDS: LANTUS PER UNIT CHARGE SQ SCH (08:27)
--- NOTE | 2023-04-28 09:44 | XRay Report ---
SINGLE VIEW CHEST CLINICAL HISTORY: Follow-up congestive failure. FINDINGS: An AP, portable, upright chest radiograph is compared to study dated 04/26/2023. The examina tion is degraded by portable technique and apical lordotic positioning. The heart is enlarged. There is pulmonary vascular congestion with mild interstitial edema. There are small pleural effusions with dependent consolidation. No pneumothorax is seen. The skeletal structures are osteopenic. The bony t horax is grossly intact. Degenerative change and scoliosis is noted in the spine. Arthritic change is seen in the shoulders. IMPRESSION: 1. Cardiomegaly with evidence of congestive failure and interstitial edema. This is similar to 023. Continued follow-up to resolution is recommended. 2. Layering pleural effusions with dependent consolidation. ACT 112: Negative or not required by law. Electronically signed by: Vinny Haley M.D. 04/28/2023 9:42 AM
--- NOTE | 2023-04-28 10:47 | Nephrology Consultation ---
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 On admission creatinine was 1.6 with baseline creatinine 1.1-1.2. Started on IV Lasix twice a day with improvement in respiratory status. Urine output improved with net negative close to 1 L. -- continue on Lasix 80 mg IV twice a day, accurate monitoring of intake and output, aim for net negative -- continue on tacrolimus 0.5 mg twice a day and CellCept 250 mg twice a day. -- continue on lisinopril 20 mg daily, may consider increasing if BP allows. -- will check venous doppler UE Thank you for allowing me to participate in your patient's care. It was a pleasure to see Delmi. History of Present Illness Reason for Consultation: acute kidney injury, history of renal transplant Attending Physician: Maria Del Carmen Tena MD History of Present Illness Ms. 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 Nephrology consult was [place] [place] for management of immunosuppression and diuretics while in hospital with history of renal transplant. EMR records were reviewed in detail during patient's visit. Delmi presented to ER with her daughter for 2 weeks of worsening fluid retention. +swelling in her legs, arms, and abdomen.+orthopnea. She has been having progressive b/l LE edema over last 1 year involving b/l lower extremity and left upper extremity (Has BC AVF for >20 years) and she has been taking lasix 80 mg twice daily. UOP has not changed. No urinary hesitancy or difficulty urination. Left UE has been swelling over last few days ( Has BC AVF for >20 years). She reports she does watch her salt intake, denies dietary indiscretion including chips, crackers, salted food, soups, hotdogs, or change in diet over the weekend. On arrival to to the ER CXR shows pulmonary vascular congestion, bilateral airspace opacities consistent with interstitial edema, dependent consolidation/small pleural effusions.Creatinine was 1.5 on admission, b/l cr 1.1 to 1.2. BNP is elevated at 617. started on IV Lasix 80 mg twice a day since admission has been having decent urine output although weight has been staying relatively stable. Delmi has h/o ADPKD eventually she reached end-stage renal disease in mid and she was on hemodialysis prior to receiving kidney transplant in June 1996. has been having excellent allograft function for last more than 25 years, baseline creatinine has been around 1.1-1.2. She has been on tacrolimus 0.5 mg twice a day and CellCept 250 mg twice a day last trough level early March was 8. She has a LUE AVF. 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 She was referred to Oncology at the [facility], Dr. Perera and completed 6 cycle course of CYBORD (cyclophosphamide, bortezomib and dexamethasone) and tolerated chemotherapy remarkably well. A follow-up biopsy showed a resolution of the proliferative changes in her transplanted kidney. Only changes of focal segmental glomerulosclerosis were noted. Her biopsy was stained with [place] red but showed no evidence of amyloidosis. Some of the changes noted on her biopsy were consistent with diabetes mellitus. She has been on lisinopril 20 mg daily, does was not increased further because of relatively low blood pressure, in 2021, had discussion with [facility] transplant program regarding the proteinuria and no plan for biopsy at the time. Had SHERLYN in 2021 when admitted with Norovirus, cr was 1.8 but eventually improved. Has atrial fibrillation, on Eliquis and rate controlled with a combination of diltiazem and metoprolol. She has been maintained on yearly Reclast for osteoporosis. She has a history of hypercalcemia in the past. She feels slightly better today, breathing somewhat improved but continues to have significant left upper extremity and bilateral lower extremity edema. Allergies Allergy/AdvReac Type Severity Reaction Status Date / Time adhesive Allergy Intermediate ERYTHEMA Verified 04/26/23 09:27 WITH ADHESIVE TAPE, blisters No Known Drug Allergies Allergy Verified 04/26/23 09:27 Home Medications Medication Instructions Recorded Confirmed Type multivitamin 1 tab PO QAM ##0 05/23/06 04/26/23 History omega 8-jih-fky-fish oil 1,000 mg 1,000 mg PO BID ##0 10/30/10 04/26/23 History (120 mg-180 mg) capsule (Fish Oil) folic acid 1 mg tablet 1 mg PO QAM ##0 05/07/12 04/26/23 History lutein 20 mg capsule 20 mg PO QPM ##0 11/11/14 04/26/23 History lancets 33 gauge (OneTouch Delica #100 ea 06/15/19 04/26/23 History Plus Lancet) tacrolimus 0.5 mg capsule, 0.5 mg PO Q12 08/28/19 04/26/23 History immediate-release vit C,E,zinc,copper-muifr4c 250 1 cap PO BID 05/13/20 04/26/23 History mg-lutein 5 mg-zeaxanthin 1 mg capsule (Ocuvite Adult 50 Plus) mycophenolate mofetil 250 mg 250 mg PO Q12 10/15/20 04/26/23 History capsule acetaminophen 650 mg tablet 650 mg PO Q4H PRN Pain 03/23/22 04/26/23 History fexofenadine 180 mg tablet 180 mg PO DAILY PRN Allergy 05/14/22 04/26/23 History (Mariya Allergy) Symptoms magnesium oxide 400 mg (241.3 mg 400 mg PO BID #180 tabs 05/14/22 04/26/23 Rx magnesium) tablet simvastatin 20 mg tablet 20 mg PO HS #90 tabs 07/06/22 04/26/23 Rx apixaban 5 mg tablet (Eliquis) 5 mg PO BID #180 tabs 07/26/22 04/26/23 Rx diltiazem HCl 180 mg 180 mg PO QAM #90 caps 07/30/22 04/26/23 Rx capsule,extended release 24 hr lisinopril 20 mg tablet 20 mg PO HS #90 tabs 07/30/22 04/26/23 Rx pen needle, diabetic 32 gauge x #100 ea 08/17/22 04/26/23 Rx 5/32" (BD Ultra-Fine Germania Pen Needle) metoprolol tartrate 25 mg tablet 37.5 mg PO BID 90 days #270 tabs 09/22/22 04/26/23 Rx insulin glargine 100 unit/mL (3 5 unit (0.05 mL) subcut QAM #15 mL 11/30/22 04/26/23 Rx mL) subcutaneous pen (Lantus Solostar U-100 Insulin) allopurinol 300 mg tablet 300 mg PO DAILY #90 tabs 12/28/22 04/26/23 Rx famotidine 20 mg tablet 20 mg PO BID #60 tabs 01/25/23 04/26/23 Rx blood sugar diagnostic #100 ea 03/15/23 04/26/23 Rx furosemide 40 mg tablet 80 mg PO BID #360 tabs 03/22/23 04/26/23 Rx levothyroxine 88 mcg tablet 88 mcg PO DAILYBB #90 tabs 04/05/23 04/26/23 Rx denosumab 60 mg/mL subcutaneous 60 mg subcut ONCE #1 mL 04/19/23 04/26/23 Rx syringe albuterol sulfate 90 mcg/actuation 1 inh inhalation QID PRN Wheezing 04/26/23 04/26/23 History aerosol inhaler (Ventolin HFA) Patient History Medical History (Updated 04/28/23 @ 11:10 by Jina Giraldo MD) Acute kidney injury Atrial fibrillation DX 2013 > NO CARDIOVERSIONS Atrial fibrillation with RVR Bilateral leg edema Diabetic peripheral neuropathy associated with type 2 diabetes mellitus Gastric ulcer RESOLVED History of dysplastic nevus HTN (hypertension) Hypercholesteremia Hyperparathyroidism Hypothyroidism Long-term current use of tacrolimus Macular degeneration BILAT Mitral regurgitation Osteoporosis Paroxysmal atrial fibrillation Personal history of diabetic foot ulcer Polycystic kidney disease HX > DR. ROCK > NANCY HANDY > [facility] Proliferative glomerulonephritis with nephrotic syndrome Thrombocytopenia Surgical History (Updated 04/26/23 @ 12:24 by STACIE Temple) History of hysterectomy History of renal transplant (07/02/11) History of squamous cell carcinoma in situ of skin WITH REMOVAL TO HEAD History of tonsillectomy Hx of cholecystectomy Kidney transplant recipient RIGHT > 1995 Family History Mother Diabetes Father Kidney disease Hypertension Son Kidney disease Sister Kidney disease Aunt Breast cancer Denies family history of Ovarian cancer Prostate cancer Myocardial infarction Colorectal cancer Social History Smoking Status: Never smoker Tobacco Type: Cigarettes Second Hand Exposure: No; Do You Dip or Chew Tobacco: No; Hx Alcohol Use: No Hx Substance Use: No Preferred Language: Persian Communication Ability: Effective Visual Impairment: No Limitations Staff Development Coordinator Required: No Beliefs That Will Affect Care: None marital status: Current Living Situation: Family current occupational status: retired Other Information That Helps Us Care for You: No Feels Safe at Home: Yes Safety Concerns: Feels Safe At This Time Diet: low salt Dental Care, Regularly: Yes Physical Activity Frequency: Does not Exercise Seatbelt Use: always Sunscreen Use: Yes Assistive Devices: Cane and Walker Assistive Devices Comment: Glasses with patient Review of Systems Review of Systems: detailed review of system was done and pertinent positives and negatives are mentioned above. Physical Exam Constitutional: WD/WN, vitals as above no acute distress Eyes: + anicteric sclerae Neck: normal visual inspection Respiratory: normal respiratory effort; no respiratory distress and no cough Auscultation: lungs clear to auscultation bilaterally Cardiovascular: Rate/Rhythm: regular rate and regular rhythm Heart Sounds: normal S1 and normal S2 Extremities: + edema (b/l LE and L UE) Gastrointestinal (Abdomen): Inspection/Auscultation: abdomen normal to inspection and normal bowel sounds Percussion/Palpation: abdomen soft; abdomen nontender Musculoskeletal: Extremities: extremities normal to inspection Skin: normal turgor; no rashes Neurologic: no focal motor deficits and not confused Psychiatric: Orientation: alert and oriented x 3 Affect: euthymic affect Results & Data Vital Signs (Past 12 Hours) Vital Signs Temp Pulse Pulse Pulse Pulse Resp BP 04/28/23 08:41 04/28/23 07:55 36.4 C L 68 20 121/75 04/28/23 05:13 81 04/28/23 04:35 89 90 04/28/23 02:10 85 04/28/23 04:56 70 21 04/28/23 04:00 36.5 C 64 22 122/64 04/28/23 00:00 73 04/27/23 23:14 81 04/27/23 23:03 36.6 C 76 24 119/69 Pulse Ox Pulse Ox Pulse Ox O2 Del Method O2 Del Method O2 Del Method O2 Flow Rate 04/28/23 08:41 Nasal Cannula 2 04/28/23 07:55 95 Nasal Cannula 2 04/28/23 05:13 93 Nasal Cannula 04/28/23 04:35 93 87 L Nasal Cannula Room Air 04/28/23 02:10 90 Room Air 04/28/23 04:56 93 Nasal Cannula 2 04/28/23 04:00 92 Room Air 04/28/23 00:00 04/27/23 23:14 93 Room Air 04/27/23 23:03 93 Room Air O2 Flow Rate 04/28/23 08:41 04/28/23 07:55 04/28/23 05:13 2 04/28/23 04:35 2 04/28/23 02:10 04/28/23 04:56 04/28/23 04:00 04/28/23 00:00 04/27/23 23:14 04/27/23 23:03 PG Care Time/CCT Total # of Minutes Spent Total Time Spent with Patient: Total time spent is greater than 50% in coordination of care (as documented) at patient's floor/unit and/or counseling patient: Coding Level of Care Code 75212 INT INP/OBS CARE 3/75MIN Diagnoses Acute kidney injury N17.9 Edema R60.9 CHF (congestive heart failure) I50.9 Kidney transplant recipient Z94.0 Anemia D64.9 Anemia type: unspecified type (5) Anemia Anemia type: unspecified type Qualified Code(s): D64.9 - Anemia, unspecified
[2023-04-28] MEDS: lisinopril 20 MG TAB PO SCH (22:14)
[2023-04-28] MEDS: SIMVASTATIN 20 MG TAB PO SCH (22:16)
[2023-04-29] MEDS: LEVOTHYROXINE SODIUM 88 MCG TABLET PO SCH (05:59)
[2023-04-29 06:16] LABS: Basophils # (auto) 0.06 K/uL (0-0.2); Eosinophils # (auto) 0.31 K/uL (0-0.50); Eosinophils % (auto) 5.3 %; Hematocrit (blood only) 36.6 % (37.0-47.0); Hemoglobin 12.1 g/dl (12.0-16.0); Immature Granulocytes # (auto) 0.02 K/uL (0.01-0.20); Immature Granulocytes % (auto) 0.3 %; Lymphocytes # (auto) 0.93 K/uL (1.2-3.4); Lymphocytes % (auto) 15.8 %; Mean Corpuscular Hemoglobin 31.5 pg (25.0-34.0); Mean Corpuscular Hgb Conc 33.1 g/dL (32.0-36.0); Mean Corpuscular Volume 95.3 fL (80.0-100.0); Monocytes # (auto) 0.55 K/uL (0.11-0.59); Monocytes % (auto) 9.4 %; Neutrophils # (auto) 4.01 K/uL (1.40-6.50); Neutrophils % (auto) 68.2 %; Platelet Count 114 K/uL (130-400); RDW Coefficient of Variation 19.4 % (11.5-14.5); Red Blood Count 3.84 M/uL (4.20-5.40); White Blood Count 5.88 K/ul (4.8-10.8)
[2023-04-29 06:21] LABS: BUN Creatinine Ratio 32.3 (10-20); Calcium 8.8 mg/dl (8.6-10.3); Creatinine Clr Calc Pharmacy 36.4 ml/min; Est GFR (African American) 36.5 ml/min; Est GFR (Non-African American) 31.5 ml/min; Potassium 4.2 mmol/L (3.5-5.1)
--- NOTE | 2023-04-29 07:45 | Ultrasound Report ---
LEFT UPPER EXTREMITY VENOUS DOPPLER HISTORY: Left upper extremity edema, evaluate for AVF,central venous stenosis COMPARISON STUDY: Left ARM venous Doppler 04/28/2022. FINDINGS: The left internal jugular vein is patent. There is reversed flow within the left internal j ugular vein. The left upper extremity fistula appears patent. Increased velocity of the fistula noted at the antecubital fossa near the anastomosis measuring 329 cm/s. The brachial, radial, and ulnar ve ins are not visualized due to the edema. On the short segment of basilic vein is identified and appea rs patent. The left subclavian and axillary veins aren't distended but patent. A few small foci of pe ripheral calcification noted at the AV fistula. Focal outpouching within the left axilla/chest wall a ppears to correspond to the patent dilated axillary veins. IMPRESSION: 1. No DVT within the visualized left upper extremity. 2. Reversed flow within the left internal jugular vein. 3. Increased velocity of the fistula noted at the antecubital fossa near the anastomosis. This favors an area of hemodynamically significant stenosis. ACT 112: Negative or not required by law. Electronically signed by: Chapincito Suazo M.D. 04/29/2023 7:42 AM
[2023-04-29] MEDS: INSULIN ASPART PER UNIT CHARGE SC SCH ×4 (08:18→20:21)
[2023-04-29] MEDS: FAMOTIDINE 20 MG TAB PO SCH ×2 (08:25→20:33)
[2023-04-29] MEDS: dilTIAZem HCL 180 MG CAPCR PO SCH (08:25)
[2023-04-29] MEDS: FOLIC ACID 1 MG TAB PO SCH (08:25)
[2023-04-29] MEDS: TACROLIMUS 0.5 MG CAP PO SCH ×2 (08:25→20:35)
[2023-04-29] MEDS: APIXABAN 5 MG TABLET PO SCH ×2 (08:26→20:33)
[2023-04-29] MEDS: METOPROLOL TARTRATE 25 MG TAB PO SCH ×2 (08:26→20:34)
[2023-04-29] MEDS: LANTUS PER UNIT CHARGE SQ SCH (08:26)
[2023-04-29] MEDS: allopurinoL 300 MG TAB PO SCH (08:26)
[2023-04-29] MEDS: MYCOPHENOLATE MOFETIL 250 MG CAP PO SCH ×2 (08:26→20:32)
[2023-04-29] MEDS: FUROSEMIDE 10 MG/ML 10 ML VIAL IV SCH ×2 (08:26→17:32)
[2023-04-29] MEDS: MAGNESIUM OXIDE 400 MG TAB PO SCH ×2 (08:26→20:34)
--- NOTE | 2023-04-29 09:04 | Hospitalist Progress Note ---
Date of Service April 29, 2023 Assessment & Plan (1) Acute exacerbation of CHF (congestive heart failure): Plan: Acute on chronic HFpEF, acute, unstable -- improving BNP elevation 617 (614 w/ CHF admit 02/2022) along w/ 20lb weight gain reported CXR w/ congestive failure, b/l opacities likely representing pulm edema with layering effusions/dependent consolidation ECHO no wma, LV normal in structure/function, EF 60-65%. Moderate MR, RVSP elevated 50-60mmhg Lasix 80mg IV BID continued Cumulative net negative 3.9L Monitor daily weights, I&O Wt 113.9kg --> 110.6kg (prior weights inaccurate) --> 108.5kg at present Nephrology also consulted given nephrotic range proteinuria, renal failure/volume overload/transplant patient lisinopril resumed last evening -- considered titration in past but w/ low BPs -- defer to nephro. Kidney function appears relatively stable w/ continued diuresis Continue incentive spirometer Supplemental O2 to maintain sats -- TITRATED TO ROOM AIR TODAY Overnight pulse ox -- dropped -- will need 2L HS and outpt sleep study PT/OT rec rehab -- [facility] w/ possible bed tuesday. will have CM apply for auth on Tuesday. Patient agreeable to short term stay at present. (2) Hypothyroidism: Plan: Hypothyroidism, chronic recently adjusted per patient in the past month from 75mcg to 88mcg TSH elevated to 5.7 04/04/23 (prior to that was in the 7s in February w/ weight gain/cough at that time) Repeat TSH w/ PCP in another 2 weeks recommended (3) CKD (chronic kidney disease): Plan: SHERLYN on CKD w/ hx PCKD and DM2, history of renal transplant, acute on chronic, unstable Allograft transplant, with good filtration. Continue tacrolimus and mycophenolate. Tacrolimus levels checked earlier this month on 04/04, levels were 8.3 therapeutic at that time Cr 1.47 on admission (baseline ~1.35) BMP this morning w/ Cr 1.58, stable w/ continued diuretics as above. lisinopril resumed last evening -- possible titrations given her proteinuria? -- defer to nephro Nephrology consulted as above -- appreciate recs/assistance Monitor BMP in AM (4) Atrial fibrillation: Plan: Paroxysmal A-fib, chronic, stable --> currently in afib with rates 60-70s Remains on eliquis 5mg BID, dilt 180mg XR, metoprolol 37.5mg BID Keep Mag ~2, K~4 No CP, monitoring on telemetry -- rates typically in the 60s (5) Diabetes mellitus type II, controlled: Plan: Type II DM, chronic, stable A1c 6.0 Weight-based basal 9 units twice daily, CF 45, ratio 15 Home basal 5 units daily continued with slightly loosened CF 50/ratio 20 given low home requirements and good admitting control BSGs reviewed -- excellent control (6) HTN (hypertension): Plan: Hypertension, chronic. stable 143/80 Continues on metoprolol, diltiazem Lisinopril resumed, remains on lasix BID as above Monitor (7) Hypercholesteremia: Plan: Hyperlipidemia, chronic, stable Continue simvastatin 20 mg p.o. 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 CM to apply for auth over the weekend Admission and Anticipated Discharge Date Admission Date: April 26, 2023 Supervising Physician Co-Signing Physician Notes PA Supervision Note: I did not personally see or examine the patient today, but I verified all lloyd points of EMILIA Daugherty's assessment and plan with the following exceptions/additions: None Subjective eval this afternoon, doing well. up in the chair, now off of oxygen. reports breathing stable discussed rehab -- even short term -- she is now agreeable but would like another day/daughter to transport this morning. Doppler RUE negative for DVT but shows some narrowing. Eating/drinking without issue. Moving her bowels. Will need to touch base with Dr Giraldo regarding diuretic regimen for at discharge. Kidney function remaining relatively stable. Physical Exam Physical Exam: General: chronically ill appearing female looking improved, up in chair eating, NAD HEENT: head normocephalic, atraumatic, mmm, +JVD still present Resp: wheezing resolved, no tachypnea, less diminished in the bases, on room air 92% CV: irregularly irregular (rates in 60s), +systolic murmur, 1+ b/l edema, calves nontender RUE>LUE edema (at baseline), slightly decreased. limb restricted on the right fistula in place +thrill GI: +BS, nontender, +edema (decreased) MSK/Neuro: no focal deficit, speech clear, answering questions appropriately L foot drop at baseline due to traumatic nerve injury. Skin: LE warmth/slight erythema (?baseline), no streaking/drainage/ulcerations Psych: AOx3, pleasant and cooperative Results & Data Results & Data Vital Signs (Past 12 Hours) Vital Signs Temp Pulse Pulse Resp BP Pulse Ox O2 Del Method 04/29/23 07:21 36.3 C L 71 20 129/77 93 Nasal Cannula 04/28/23 23:00 95 H 04/28/23 23:00 79 04/29/23 03:09 36.3 C L 74 18 125/73 94 Nasal Cannula 04/28/23 22:43 36.5 C 71 20 145/76 H 96 Nasal Cannula O2 Flow Rate 04/29/23 07:21 1 04/28/23 23:00 04/28/23 23:00 04/29/23 03:09 2 04/28/23 22:43 2 Laboratory Results 04/29/23 04/29/23 04/29/23 Range/Units 07:23 05:15 05:15 WBC 5.88 (4.8-10.8) K/ul RBC 3.84 L (4.20-5.40) M/uL Hgb 12.1 (12.0-16.0) g/dl Hct 36.6 L (37.0-47.0) % MCV 95.3 (80.0-100.0) fL MCH 31.5 (25.0-34.0) pg MCHC 33.1 (32.0-36.0) g/dL RDW Std Deviation 66.0 H (36.4-46.3) fL RDW Coeff of Lidya 19.4 H (11.5-14.5) % Plt Count 114 L (130-400) K/uL MPV 12.0 (9.4-12.4) fL Immature Gran % (Auto) 0.3 % Neut % (Auto) 68.2 % Lymph % (Auto) 15.8 % Kern % (Auto) 9.4 % Eos % (Auto) 5.3 % Baso % (Auto) 1.0 % Neut # (Auto) 4.01 (1.40-6.50) K/uL Lymph # (Auto) 0.93 L (1.2-3.4) K/uL Kern # (Auto) 0.55 (0.11-0.59) K/uL Eos # (Auto) 0.31 (0-0.50) K/uL Baso # (Auto) 0.06 (0-0.2) K/uL Immature Gran # (Auto) 0.02 (0.01-0.20) K/uL Sodium 140 (136-145) mmol/L Potassium 4.2 (3.5-5.1) mmol/L Chloride 105 (98-107) mmol/L Carbon Dioxide 28 (21-32) mmol/L Anion Gap 7 (3-11) BUN 51 H (6-23) mg/dl Creatinine 1.58 H (0.6-1.2) mg/dl Est Cr Clr Drug Dosing 36.4 ml/min Est GFR ( Amer) 36.5 ml/min Est GFR (Non-Af Amer) 31.5 ml/min BUN/Creatinine Ratio 32.3 H (10-20) Glucose 84 (70-99(Fasting)) mg/dl POC Glucose 86 (70-99) mg/dl Calcium 8.8 (8.6-10.3) mg/dl Magnesium 2.0 (1.7-2.4) mg/dl 04/28/23 04/28/23 04/28/23 Range/Units 21:11 16:36 11:27 WBC (4.8-10.8) K/ul RBC (4.20-5.40) M/uL Hgb (12.0-16.0) g/dl Hct (37.0-47.0) % MCV (80.0-100.0) fL MCH (25.0-34.0) pg MCHC (32.0-36.0) g/dL RDW Std Deviation (36.4-46.3) fL RDW Coeff of Lidya (11.5-14.5) % Plt Count (130-400) K/uL MPV (9.4-12.4) fL Immature Gran % (Auto) % Neut % (Auto) % Lymph % (Auto) % Kern % (Auto) % Eos % (Auto) % Baso % (Auto) % Neut # (Auto) (1.40-6.50) K/uL Lymph # (Auto) (1.2-3.4) K/uL Kern # (Auto) (0.11-0.59) K/uL Eos # (Auto) (0-0.50) K/uL Baso # (Auto) (0-0.2) K/uL Immature Gran # (Auto) (0.01-0.20) K/uL Sodium (136-145) mmol/L Potassium (3.5-5.1) mmol/L Chloride (98-107) mmol/L Carbon Dioxide (21-32) mmol/L Anion Gap (3-11) BUN (6-23) mg/dl Creatinine (0.6-1.2) mg/dl Est Cr Clr Drug Dosing ml/min Est GFR ( Amer) ml/min Est GFR (Non-Af Amer) ml/min BUN/Creatinine Ratio (10-20) Glucose (70-99(Fasting)) mg/dl POC Glucose 116 H 82 111 H (70-99) mg/dl Calcium (8.6-10.3) mg/dl Magnesium (1.7-2.4) mg/dl Diagnostic Findings Chest X-Ray 04/28/23 06:00 SINGLE VIEW CHEST CLINICAL HISTORY: Follow-up congestive failure. FINDINGS: An AP, portable, upright chest radiograph is compared to study dated 04/26/2023. The examination is degraded by portable technique and apical lordotic positioning. The heart is enlarged. There is pulmonary vascular congestion with mild interstitial edema. There are small pleural effusions with dependent consolidation. No pneumothorax is seen. The skeletal structures are osteopenic. The bony thorax is grossly intact. Degenerative change and scoliosis is noted in the spine. Arthritic change is seen in the shoulders. IMPRESSION: 1. Cardiomegaly with evidence of congestive failure and interstitial edema. This is similar to 04/26/2023. Continued follow-up to resolution is recommended. 2. Layering pleural effusions with dependent consolidation. ACT 112: Negative or not required by law. Electronically signed by: Vinny Haley M.D. 04/28/2023 9:42 AM Extremity Venous Study 04/28/23 16:40 LEFT UPPER EXTREMITY VENOUS DOPPLER HISTORY: Left upper extremity edema, evaluate for AVF,central venous stenosis COMPARISON STUDY: Left ARM venous Doppler 04/28/2022. FINDINGS: The left internal jugular vein is patent. There is reversed flow within the left internal jugular vein. The left upper extremity fistula appears patent. Increased velocity of the fistula noted at the antecubital fossa near the anastomosis measuring 329 cm/s. The brachial, radial, and ulnar veins are not visualized due to the edema. On the short segment of basilic vein is identified and appears patent. The left subclavian and axillary veins aren't distended but patent. A few small foci of peripheral calcification noted at the AV fistula. Focal outpouching within the left axilla/chest wall appears to correspond to the patent dilated axillary veins. IMPRESSION: 1. No DVT within the visualized left upper extremity. 2. Reversed flow within the left internal jugular vein. 3. Increased velocity of the fistula noted at the antecubital fossa near the anastomosis. This favors an area of hemodynamically significant stenosis. ACT 112: Negative or not required by law. Electronically signed by: Chapincito Suazo M.D. 04/29/2023 7:42 AM PG Care Time/CCT Total # of Minutes Spent Total Time Spent with Patient: Total time spent is greater than 50% in coordination of care (as documented) at patient's floor/unit and/or counseling patient: Coding Level of Care Code 18168 SUB INP/OBS CARE 3/50MIN Diagnoses Acute exacerbation of CHF (congestive heart failure) I50.9 Heart failure type: unspecified Hypothyroidism E03.9 Hypothyroidism type: unspecified CKD (chronic kidney disease) N18.9 Atrial fibrillation I48.0 Atrial fibrillation type: paroxysmal Diabetes mellitus type II, controlled E11.42; Z79.4 Diabetes mellitus complication detail: with polyneuropathy Diabetes mellitus complication status: with neurologic complications Diabetes mellitus residential insulin use: with middle or intermediate school principal use HTN (hypertension) I10 Hypertension type: primary hypertension Hypercholesteremia E78.00 Monoclonal gammopathy D47.2 Gout [id number].[id number] Chronicity: chronic Gout etiology: due to renal impairment Gout site: unspecified site Presence of tophus: without tophus History of kidney transplant Z94.0 (1) Acute exacerbation of CHF (congestive heart failure) Heart failure type: unspecified Qualified Code(s): I50.9 - Heart failure, unspecified (2) Hypothyroidism Hypothyroidism type: unspecified Qualified Code(s): E03.9 - Hypothyroidism, unspecified (4) Atrial fibrillation Atrial fibrillation type: paroxysmal Qualified Code(s): I48.0 - Paroxysmal atrial fibrillation (5) Diabetes mellitus type II, controlled Diabetes mellitus complication detail: with polyneuropathy Diabetes mellitus complication status: with neurologic complications Diabetes mellitus middle or intermediate school principal insulin use: with middle or intermediate school principal use Qualified Code(s): E11.42 - Type 2 diabetes mellitus with diabetic polyneuropathy; Z79.4 - superintendent [employer] (current) use of insulin (6) HTN (hypertension) Hypertension type: primary hypertension Qualified Code(s): I10 - Essential (primary) hypertension (9) Gout Chronicity: chronic Gout etiology: due to renal impairment Gout site: unspecified site Presence of tophus: without tophus Qualified Code(s): 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
--- NOTE | 2023-04-29 15:12 | Nephrology Progress Note ---
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 On admission creatinine was 1.6 with baseline creatinine 1.1-1.2. Started on IV Lasix twice a day with improvement in respiratory status. Urine output improved with net negative close to 1 L. edema improved. Left upper extremity venous Doppler was negative for any central venous stenosis, however she was noted to have some stenosis in her AV fistula which has not been in use. -- Decrease Lasix to 40 mg IV twice a day, accurate monitoring of intake and output, aim for net negative. if remained net negative, consider changing to orally by tomorrow. check lab in a.m. -- continue on tacrolimus 0.5 mg twice a day and CellCept 250 mg twice a day. -- continue on lisinopril 20 mg daily, may consider increasing if BP allows. -- Continue to keep leg and upper extremity elevated, consider using compression stocking for lower extremity, follow low-salt diet. Will follow. Admission and Anticipated Discharge Date Admission Date: April 26, 2023 Codie Awad was seen and evaluated this morning. Overall she is feeling well, LE and left UE edema slightly improved. Renal function staying relatively stable, electrolyte acceptable. BP fair. Review of Systems Review of Systems: detailed review of system was done and pertinent positives and negatives are mentioned above. Physical Exam Constitutional: WD/WN, vitals as above no acute distress Eyes: + anicteric sclerae Neck: normal visual inspection Respiratory: Auscultation: lungs clear to auscultation bilaterally Cardiovascular: Rate/Rhythm: regular rate and regular rhythm Heart Sounds: normal S1 and normal S2 Extremities: + edema (b/l LE and L UE, slight improvement.) Musculoskeletal: Extremities: extremities normal to inspection Skin: no rashes, warm and dry Neurologic: no focal motor deficits Psychiatric: Orientation: alert and oriented x 3 Affect: euthymic affect Results & Data Vital Signs (Past 12 Hours) Vital Signs Temp Pulse Pulse Resp BP Pulse Ox O2 Del Method 04/29/23 08:00 Room Air 04/29/23 08:00 78 04/29/23 11:47 36.4 C 67 22 143/80 H 92 Room Air 04/29/23 07:21 36.3 C L 71 20 129/77 93 Nasal Cannula O2 Flow Rate 04/29/23 08:00 04/29/23 08:00 04/29/23 11:47 04/29/23 07:21 1 PG Care Time/CCT Total # of Minutes Spent Total Time Spent with Patient: Total time spent is greater than 50% in coordination of care (as documented) at patient's floor/unit and/or counseling patient: Coding Level of Care Code 02118 SUB INP/OBS CARE 3/50MIN Diagnoses Acute kidney injury N17.9 CHF (congestive heart failure) I50.9 Edema R60.9 History of kidney transplant Z94.0 HTN (hypertension) I10 Hypertension type: primary hypertension (5) HTN (hypertension) Hypertension type: primary hypertension Qualified Code(s): I10 - Essential ( primary) hypertension
[2023-04-29] MEDS: lisinopril 20 MG TAB PO SCH (20:33)
[2023-04-29] MEDS: SIMVASTATIN 20 MG TAB PO SCH (20:34)
[2023-04-30 05:00] LABS: BUN Creatinine Ratio 32.7 (10-20); Calcium 8.6 mg/dl (8.6-10.3); Creatinine Clr Calc Pharmacy 35.5 ml/min; Est GFR (African American) 35.4 ml/min; Est GFR (Non-African American) 30.5 ml/min; Potassium 4.4 mmol/L (3.5-5.1)
[2023-04-30] MEDS: LEVOTHYROXINE SODIUM 88 MCG TABLET PO SCH (05:34)
--- NOTE | 2023-04-30 07:39 | XRay Report ---
XR chest 1V portable HISTORY: 77 years-old Female follow up congestion acute shortness of breath COMPARISON: 04/28/2023 TECHNIQUE: AP view the chest FINDINGS: Cardiac silhouette is enlarged. Pulmonary vascular congestion with interstitial coarsening again note d. No pneumothorax. Small pleural effusions with bibasilar consolidation. Degenerative changes of the shoulders and spine. Sigmoidal scoliosis of the spine. IMPRESSION: 1. Cardiomegaly with unchanged pulmonary edema. 2. Persistent layering pleural effusions with bibasilar consolidation. ACT 112: Negative or not required by law. The above report was generated using voice recognition software. It may contain grammatical, syntax o r spelling errors. Electronically signed by: Clemente Bear M.D. 04/30/2023 7:37 AM
[2023-04-30] MEDS: allopurinoL 300 MG TAB PO SCH (08:08)
[2023-04-30] MEDS: APIXABAN 5 MG TABLET PO SCH ×2 (08:08→20:24)
[2023-04-30] MEDS: FOLIC ACID 1 MG TAB PO SCH (08:08)
[2023-04-30] MEDS: MAGNESIUM OXIDE 400 MG TAB PO SCH ×2 (08:09→20:25)
[2023-04-30] MEDS: MYCOPHENOLATE MOFETIL 250 MG CAP PO SCH ×2 (08:09→20:27)
[2023-04-30] MEDS: FAMOTIDINE 20 MG TAB PO SCH ×2 (08:09→20:25)
[2023-04-30] MEDS: METOPROLOL TARTRATE 25 MG TAB PO SCH ×2 (08:09→20:26)
[2023-04-30] MEDS: FUROSEMIDE 10 MG/ML 10 ML VIAL IV SCH (08:09)
[2023-04-30] MEDS: dilTIAZem HCL 180 MG CAPCR PO SCH (08:09)
[2023-04-30] MEDS: TACROLIMUS 0.5 MG CAP PO SCH ×2 (08:09→20:27)
--- NOTE | 2023-04-30 08:09 | Hospitalist Progress Note ---
Date of Service April 30, 2023 Assessment & Plan (1) Acute exacerbation of CHF (congestive heart failure): Plan: Acute on chronic HFpEF, acute, unstable -- improving BNP elevation 617 (614 w/ CHF admit 02/2022) along w/ 20lb weight gain reported CXR w/ congestive failure, b/l opacities likely representing pulm edema with layering effusions/dependent consolidation ECHO no wma, LV normal in structure/function, EF 60-65%. Moderate MR, RVSP elevated 50-60mmhg Lasix 80mg IV BID on admission, continued through AM 04/29 and transitioned to 40mg IV BID by nephrology and remaining net negative with such (despite CXR unchanged/layering effusions, but is now on room air) Net negative 4.6L since admission, remaining net negative Nephrology switched to Lasix 40mg PO BID to start for this evening. BUN/Cr currently 53/1.62. Of note, she would like her dc summary info sent to her transplant Dr in [place], Dr Isaiah Martinez at d/c Cumulative net negative 3.9L Monitor daily weights, I&O Wt 113.9kg --> now 105.3kg 1500ml/day fluid restriction Remains on lisinopril 20mg daily -- if BP allows, would rec to increase given proteinuria -- defer to nephrology O2 to maintain sats -- currently on room air Overnight pulse ox study demonstrated need at night -- will need sleep study outpatient. Unfortunately expires after 48 hours and remaining inpatient for [facility] Tuesday vs Tuesday pending bed availability and will need repeated tomorrow night closer to time of discharge. Consider 2step prior to dc as well Monitor labs/renal function in AM, CXR for Tuesday prior to dc rec'd (2) Hypothyroidism: Plan: Hypothyroidism, chronic recently adjusted per patient in the past month from 75mcg to 88mcg TSH elevated to 5.7 04/04/23 (prior to that was in the 7s in February w/ weight gai n/cough at that time) Repeat TSH w/ PCP in another 1-2 weeks recommended (3) CKD (chronic kidney disease): Plan: SHERLYN on CKD w/ hx PCKD and DM2, history of renal transplant, acute on chronic, unstable Allograft transplant, with good filtration. Continue tacrolimus and mycophenolate. Tacrolimus levels checked earlier this month on 04/04, levels were 8.3 therapeutic at that time Cr 1.47 on admission (baseline ~1.35) BMP this morning w/ Cr 1.62 Nephrology consulted as above -- changed lasix to 40mg PO BID for this evening Consideration for increased dose lisinopril if tolerates monitor BMP in AM Forward hospital stay to her transplant Dr Isaiah Martinez in [place] at [facility] (4) Atrial fibrillation: Plan: Paroxysmal A-fib, chronic, stable --> currently in afib with rates 60-70s Remains on eliquis 5mg BID, dilt 180mg XR, metoprolol 37.5mg BID Keep Mag ~2, K~4 No CP, monitoring on telemetry -- rates typically in the 60s, now 60-70s (5) Diabetes mellitus type II, controlled: Plan: Type II DM, chronic, stable A1c 6.0 Weight-based basal 9 units twice daily, CF 45, ratio 15 Home basal 5 units daily continued with slightly loosened CF 50/ratio 20 given low home requirements and good admitting control BSGs reviewed -- excellent control (6) HTN (hypertension): Plan: Hypertension, chronic. stable 144/83 Continues on metoprolol, diltiazem Lisinopril resumed, remains on lasix BID as above but decreased dose Consideration to increase lisinopril if BP allows -- DENIES ANY LIGHTHEADEDNESS/DIZZINESS ON EXAM AT PRESENT Monitor (7) Hypercholesteremia: Plan: Hyperlipidemia, chronic, stable Continue simvastatin 20 mg p.o. 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, FSGS also noted IgG repletion deferred to periodic IgG levels checked as outpatient -With thrombocytopenia, plts stable on prior labs, will repeat in AM given slight pink color in tubing but ?irritation from [place] (9) Gout: Plan: Gout, chronic, stable No acute exacerbation Continue allopurinol Allergic rhinitis, chronic Continue fexofenadine daily as needed (10) History of kidney transplant: Plan: - as noted, cellcept/tacrolimus order - No dysuria/leukocytosis/fever/chills on admit Plan continued inpatient stay PT/OT rec rehab -- [facility] possibly have bed on Tuesday vs Tuesday. CM to apply for auth over the weekend -- tomorrow. Will need repeat overnight pulse ox study tomorrow night/outpatient sleep study. Consider 2step prior to dc as well Admission and Anticipated Discharge Date Admission Date: April 26, 2023 Supervising Physician Co-Signing Physician Notes PA Supervision Note: I did not personally see or examine the patient today, but I verified all lloyd points of EMILIA Daugherty's assessment and plan with the following exceptions/additions: None Subjective Patient evaluated this morning, sitting up in the chair watching TV. NAD States breathing improved/stable. Remaining on room air. O2 at night to be co ntinued. Per nephrology, decreasing Lasix to 40mg PO BID for this evening. Renal function fairly stable. Urine concentrated at current moment in [place]. She has a good appetite/eating everything she has been given. Moving her bowels -- 1-2x/day. Awaiting placement at rehab, however she is inquiring about Continued monitoring of her kidney function and discussed can have them repeat labs/monitor and will have her dc summary forwarded to her transplant doctor in [place], Dr Isaiah Martinez. Discussed will include in my note to forward her hospital stay at discharge to Dr Martinez so he has her records asa well. Questions/concerns addressed at this time. Physical Exam Physical Exam: General: chronically ill appearing female looking improved, up in chair watching TV, NAD HEENT: head normocephalic, atraumatic, mmm, +JVD still present (slightly less sitting up in chair) Resp: wheezing resolved, no tachypnea, less diminished in the bases, on room air CV: irregularly irregular (rates in 70s), +systolic murmur, 1-2+ b/l pitting edema, calves nontender RUE>LUE edema (at baseline, improved),. limb restricted on the right fistula in place +thrill GI: +BS, nontender, +edema (decreased) : [place] draining concentrated urine, slightly pink in tubing MSK/Neuro: no focal deficit, speech clear, answering questions appropriately L foot drop at baseline due to traumatic nerve injury. Skin: LE warmth/slight erythema (?baseline), no streaking/drainage/ulcerations Psych: AOx3, pleasant and cooperative Results & Data Results & Data Vital Signs (Past 12 Hours) Vital Signs Temp Pulse Pulse Resp BP Pulse Ox O2 Del Method 04/30/23 07:35 36.3 C L 71 17 134/80 95 Nasal Cannula 04/30/23 02:28 36.8 C 80 16 121/71 95 Nasal Cannula 04/29/23 23:00 75 04/29/23 22:47 36.6 C 74 18 135/76 96 Nasal Cannula O2 Flow Rate 04/30/23 07:35 1 04/30/23 02:28 2 04/29/23 23:00 04/29/23 22:47 2 Laboratory Results 04/30/23 04/30/23 04/29/23 Range/Units 07:34 04:25 20:13 Sodium 140 (136-145) mmol/L Potassium 4.4 (3.5-5.1) mmol/L Chloride 106 (98-107) mmol/L Carbon Dioxide 27 (21-32) mmol/L Anion Gap 7 (3-11) BUN 53 H (6-23) mg/dl Creatinine 1.62 H (0.6-1.2) mg/dl Est Cr Clr Drug Dosing 35.5 ml/min Est GFR ( Amer) 35.4 ml/min Est GFR (Non-Af Amer) 30.5 ml/min BUN/Creatinine Ratio 32.7 H (10-20) Glucose 85 (70-99(Fasting)) mg/dl POC Glucose 80 101 H (70-99) mg/dl Calcium 8.6 (8.6-10.3) mg/dl Magnesium 2.0 (1.7-2.4) mg/dl 04/29/23 04/29/23 Range/Units 17:02 11:50 Sodium (136-145) mmol/L Potassium (3.5-5.1) mmol/L Chloride (98-107) mmol/L Carbon Dioxide (21-32) mmol/L Anion Gap (3-11) BUN (6-23) mg/dl Creatinine (0.6-1.2) mg/dl Est Cr Clr Drug Dosing ml/min Est GFR ( Amer) ml/min Est GFR (Non-Af Amer) ml/min BUN/Creatinine Ratio (10-20) Glucose (70-99(Fasting)) mg/dl POC Glucose 89 97 (70-99) mg/dl Calcium (8.6-10.3) mg/dl Magnesium (1.7-2.4) mg/dl Diagnostic Findings Chest X-Ray 04/30/23 07:00 XR chest 1V portable HISTORY: 77 years-old Female follow up congestion acute shortness of breath COMPARISON: 04/28/2023 TECHNIQUE: AP view the chest FINDINGS: Cardiac silhouette is enlarged. Pulmonary vascular congestion with interstitial coarsening again noted. No pneumothorax. Small pleural effusions with bibasilar consolidation. Degenerative changes of the shoulders and spine. Sigmoidal scoliosis of the spine. IMPRESSION: 1. Cardiomegaly with unchanged pulmonary edema. 2. Persistent layering pleural effusions with bibasilar consolidation. ACT 112: Negative or not required by law. The above report was generated using voice recognition software. It may contain grammatical, syntax or spelling errors. Electronically signed by: Clemente Bear M.D. 04/30/2023 7:37 AM PG Care Time/CCT Total # of Minutes Spent Total Time Spent with Patient: Total time spent is greater than 50% in coordination of care (as documented) at patient's floor/unit and/or counseling patient: Coding Level of Care Code 54058 SUB INP/OBS CARE 3/50MIN Diagnoses Acute exacerbation of CHF (congestive heart failure) I50.9 Heart failure type: unspecified Hypothyroidism E03.9 Hypothyroidism type: unspecified CKD (chronic kidney disease) N18.9 Atrial fibrillation I48.0 Atrial fibrillation type: paroxysmal Diabetes mellitus type II, controlled E11.42; Z79.4 Diabetes mellitus complication detail: with polyneuropathy Diabetes mellitus complication status: with neurologic complications Diabetes mellitus shelter insulin use: with shelter use HTN (hypertension) I10 Hypertension type: primary hypertension Hypercholesteremia E78.00 Monoclonal gammopathy D47.2 Gout [id number].[id number] Chronicity: chronic Gout etiology: due to renal impairment Gout site: unspecified site Presence of tophus: without tophus History of kidney transplant Z94.0 (1) Acute exacerbation of CHF (congestive heart failure) Heart failure type: unspecified Qualified Code(s): I50.9 - Heart failure, unspecified (2) Hypothyroidism Hypothyroidism type: unspecified Qualified Code(s): E03.9 - Hypothyroidism, unspecified (4) Atrial fibrillation Atrial fibrillation type: paroxysmal Qualified Code(s): I48.0 - Paroxysmal atrial fibrillation (5) Diabetes mellitus type II, controlled Diabetes mellitus complication detail: with polyneuropathy Diabetes mellitus complication status: with neurologic complications Diabetes mellitus shelter insulin use: with shelter use Qualified Code(s): E11.42 - Type 2 diabetes mellitus with diabetic polyneuropathy; Z79.4 - terminal superintendent (current) use of insulin (6) HTN (hypertension) Hypertension type: primary hypertension Qualified Code(s): I10 - Essential (primary) hypertension (9) Gout Chronicity: chronic Gout etiology: due to renal impairment Gout site: unspecified site Presence of tophus: without tophus Qualified Code(s): 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
[2023-04-30] MEDS: INSULIN ASPART PER UNIT CHARGE SC SCH ×4 (08:17→20:13)
[2023-04-30] MEDS: LANTUS PER UNIT CHARGE SQ SCH (08:17)
--- NOTE | 2023-04-30 10:54 | Nephrology Progress Note ---
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 On admission creatinine was 1.6 with baseline creatinine 1.1-1.2. Started on IV Lasix twice a day with improvement in respiratory status. Urine output improved with net negative close to 1 L. edema improved. Left upper extremity venous Doppler was negative for any central venous stenosis, however she was noted to have some stenosis in her AV fistula which has not been in use. -- Change Lasix to 40 mg orally twice a day, accurate monitoring of intake and output, aim for net negative. -- continue on tacrolimus 0.5 mg twice a day and CellCept 250 mg twice a day. -- continue on lisinopril 20 mg daily, may consider increasing in future if BP allows. -- keep leg and upper extremity elevated, consider using compression stocking for lower extremity, follow low-salt diet. Will follow. Admission and Anticipated Discharge Date Admission Date: April 26, 2023 Codie Awad was seen and evaluated this morning. Overall she is feeling well, LE and left UE edema slightly improved. Renal function staying relatively stable , no further improvement, electrolyte acceptable. BP fair. net negative 700 mL. Review of Systems Review of Systems: detailed review of system was done and pertinent positives and negatives are mentioned above. Physical Exam Constitutional: WD/WN, vitals as above no acute distress Eyes: + anicteric sclerae Neck: normal visual inspection Respiratory: Auscultation: lungs clear to auscultation bilaterally Cardiovascular: Rate/Rhythm: regular rate and regular rhythm Heart Sounds: normal S1 and normal S2 Extremities: + edema (b/l LE and L UE, slight improvement.) Musculoskeletal: Extremities: extremities normal to inspection Skin: no rashes, warm and dry Neurologic: no focal motor deficits Psychiatric: Orientation: alert and oriented x 3 Affect: euthymic affect Results & Data Vital Signs (Past 12 Hours) Vital Signs Temp Pulse Pulse Resp BP Pulse Ox O2 Del Method 04/30/23 08:00 75 04/30/23 07:35 36.3 C L 71 17 134/80 95 Nasal Cannula 04/30/23 02:28 36.8 C 80 16 121/71 95 Nasal Cannula 04/29/23 23:00 75 O2 Flow Rate 04/30/23 08:00 04/30/23 07:35 1 04/30/23 02:28 2 04/29/23 23:00 PG Care Time/CCT Total # of Minutes Spent Total Time Spent with Patient: Total time spent is greater than 50% in coordination of care (as documented) at patient's floor/unit and/or counseling patient: Coding Level of Care Code 77033 SUB INP/OBS CARE 3/50MIN Diagnoses Acute kidney injury N17.9 CHF (congestive heart failure) I50.9 Edema R60.9 History of kidney transplant Z94.0 HTN (hypertension) I10 Hypertension type: primary hypertension (5) HTN (hypertension) Hypertension type: primary hypertension Qualified Code(s): I10 - Essential (primary) hypertension
[2023-04-30] MEDS: FUROSEMIDE 40 MG TAB PO SCH (17:10)
[2023-04-30] MEDS: lisinopril 20 MG TAB PO SCH (20:25)
[2023-04-30] MEDS: SIMVASTATIN 20 MG TAB PO SCH (20:27)
[2023-05-01] MEDS: LEVOTHYROXINE SODIUM 88 MCG TABLET PO SCH (05:09)
[2023-05-01 05:41] LABS: BUN Creatinine Ratio 36.4 (10-20); Calcium 9.2 mg/dl (8.6-10.3); Creatinine Clr Calc Pharmacy 39.6 ml/min; Est GFR (African American) 41.1 ml/min; Est GFR (Non-African American) 35.5 ml/min; Potassium 4.4 mmol/L (3.5-5.1)
[2023-05-01 05:54] LABS: Hematocrit (blood only) 40.1 % (37.0-47.0); Hemoglobin 13.4 g/dl (12.0-16.0); Mean Corpuscular Hemoglobin 31.8 pg (25.0-34.0); Mean Corpuscular Hgb Conc 33.4 g/dL (32.0-36.0); Platelet Count 101 K/uL (130-400); RDW Coefficient of Variation 19.5 % (11.5-14.5); RDW Standard Deviation 66.4 fL (36.4-46.3); Red Blood Count 4.22 M/uL (4.20-5.40)
--- NOTE | 2023-05-01 08:02 | Hospitalist Progress Note ---
Date of Service May 01, 2023 Assessment & Plan (1) Acute exacerbation of CHF (congestive heart failure): Plan: Acute on chronic HFpEF, acute, unstable -- improving BNP elevation 617 (614 w/ CHF admit 02/2022) along w/ 20lb weight gain reported CXR w/ congestive failure, b/l opacities likely representing pulm edema with layering effusions/dependent consolidation ECHO no wma, LV normal in structure/function, EF 60-65%. Moderate MR, RVSP elevated 50-60mmhg Lasix 80mg IV BID on admission, continued through AM 6/2 and transitioned to 40mg IV BID by nephrology and remaining net negative with such (despite CXR unchanged/layering effusions, but is now on room air) Nephrology switched to Lasix 40mg PO BID to start evening 04/30 BUN/Cr slightly improved, however weights up in system with standing scale today. Is now net negative 4.9 from 4.6L day prior and aiming for even balance ?benefit from increasing lisinopril given proteinuria. Will check UA/urine protein/cr for eval defer to increasing lisinopril to nephrology -- BP stable at present Of note, patient would like oncoming team tomorrow to reach out to her transplant Dr Isaiah Martinez for discussion of her care as well Monitor weights (up via standing scale today)/I&O Continue fluid restriction Currently on room air -- O2 at night. Will need overnight pulse ox prior to dc from rehab ([facility] to have bed this week) but per nephrology discussion w/ patient planning inpatient additonal 1-2 days and will wait to apply for auth until tomorrow pending repeat labs/exam. Would rec she have 2step prior to dc from rehab to see if any needs w/ ambulation (2) Hypothyroidism: Plan: Hypothyroidism, chronic -- recently adjusted per patient in the past month from 75mcg to 88mcg TSH elevated to 5.7 04/04/23 (prior to that was in the 7s in February w/ weight gain/cough at that time) Repeat TSH w/ PCP in another 1 weeks recommended (3) CKD (chronic kidney disease): Plan: SHERLYN on CKD w/ hx PCKD and DM2, history of renal transplant, acute on chronic, unstable Allograft transplant, with good filtration. Continue tacrolimus and mycophenolate. Tacrolimus levels checked earlier this month on 04/04, levels were 8.3 therapeutic at that time Cr 1.47 on admission (baseline ~1.35) BMP this morning w/ Cr 1.43 from 1.62 with change to lasix 40mg PO BID by nephorology however again as above, weights up. Did message about changing diuretics/increasing lisinopril Please have oncoming team tomorrow reach out to her transplant Dr Isaiah Martinez per patient request to discuss her care BMP in AM (4) Atrial fibrillation: Plan: Paroxysmal A-fib, chronic, stable --> currently in afib with rates 60-70s Remains on eliquis 5mg BID, dilt 180mg XR, metoprolol 37.5mg BID Keep Mag ~2, K~4 No CP, monitoring on telemetry -- rates 60-70s (5) Diabetes mellitus type II, controlled: Plan: Type II DM, chronic, stable A1c 6.0 Weight-based basal 9 units twice daily, CF 45, ratio 15 Home basal 5 units daily continued with slightly loosened CF 50/ratio 20 given low home requirements and good admitting control BSGs reviewed -- excellent control (6) HTN (hypertension): Plan: Hypertension, chronic. stable Continues on metoprolol, diltiazem Lisinopril resumed, remains on lasix BID as above but decreased dose (for now) Consideration to increase lisinopril if BP allows -- DENIES ANY LIGHTHEADEDNESS/DIZZINESS ON EXAM AT PRESENT Monitor (7) Hypercholesteremia: Plan: Hyperlipidemia, chronic, stable Continue simvastatin 20 mg p.o. 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, FSGS also noted IgG repletion deferred to periodic IgG levels checked as outpatient -With thrombocytopenia, plts stable on prior labs (9) Gout: Plan: Gout, chronic, stable No acute exacerbation Continue allopurinol Allergic rhinitis, chronic Continue fexofenadine daily as needed (10) History of kidney transplant: Plan: - as noted, cellcept/tacrolimus order - No dysuria/leukocytosis/fever/chills on admit Plan continued inpatient stay PT/OT rec rehab -- [facility] possibly have bed on Tuesday vs Tuesday but will see how she is doing tomorrow prior to applying for auth given patient reporting nephrology stating another day or two minimum. Will touch base with Dr Giraldo Check ua/cx/urine protein for further eval and monitor labs/weights/cxr in AM Admission and Anticipated Discharge Date Admission Date: April 26, 2023 Supervising Physician Co-Signing Physician Notes PA Supervision Note: I did not personally see or examine the patient today, but I verified all lloyd points of EMILIA Daugherty's assessment and plan with the following exceptions/additions: None Subjective eval this morning, doing well. sitting up in chair. stated she saw Dr Giraldo and planning to keep her another day or two, talks about increasing her back to 80mg lasix twice daily but did not mention increasing her lisinopril. Will message Dr Giraldo regarding conversation. Ms Page would like oncoming shift tomorrow to touch base w/ her transplant doctor as well -- will include in note. Renal function slightly improved, urine still slightly concentrated/possible blood and will obtain sample for analysis. Physical Exam Physical Exam: General: chronically ill appearing female looking improved, up in chair watching TV, NAD HEENT: head normocephalic, atraumatic, mmm, +JVD still present Resp: wheezing resolved, no tachypnea, less diminished in the bases, on room air CV: irregularly irregular (rates in 70s), +systolic murmur, 1-2+ b/l pitting edema UNCHANGED, calves nontender RUE>LUE edema (at baseline, improved),. limb restricted on the right fistula in place +thrill GI: +BS, nontender, +edema (about the same) : wheatley draining concentrated urine, slightly blood tinged but clearer in the tubing MSK/Neuro: no focal deficit, speech clear, answering questions appropriately L foot drop at baseline due to traumatic nerve injury. Skin: LE warmth/slight erythema (?baseline), no streaking/drainage/ulcerations Psych: AOx3, pleasant and cooperative Results & Data Results & Data Vital Signs (Past 12 Hours) Vital Signs Temp Pulse Pulse Pulse Resp BP Pulse Ox 05/01/23 07:59 79 05/01/23 07:45 36.6 C 80 18 133/76 94 05/01/23 04:00 36.8 C 74 20 129/84 98 04/30/23 23:00 77 04/30/23 22:50 36.8 C 75 18 140/84 94 O2 Del Method O2 Flow Rate 05/01/23 07:59 05/01/23 07:45 Nasal Cannula 1.5 05/01/23 04:00 Nasal Cannula 2 04/30/23 23:00 04/30/23 22:50 Nasal Cannula 2 Laboratory Results 05/01/23 05/01/23 05/01/23 Range/Units 07:19 04:55 04:55 WBC 6.10 (4.8-10.8) K/ul RBC 4.22 (4.20-5.40) M/uL Hgb 13.4 (12.0-16.0) g/dl Hct 40.1 (37.0-47.0) % MCV 95.0 (80.0-100.0) fL MCH 31.8 (25.0-34.0) pg MCHC 33.4 (32.0-36.0) g/dL RDW Std Deviation 66.4 H (36.4-46.3) fL RDW Coeff of Lidya 19.5 H (11.5-14.5) % Plt Count 101 L (130-400) K/uL Sodium 140 (136-145) mmol/L Potassium 4.4 (3.5-5.1) mmol/L Chloride 106 (98-107) mmol/L Carbon Dioxide 28 (21-32) mmol/L Anion Gap 6 (3-11) BUN 52 H (6-23) mg/dl Creatinine 1.43 H (0.6-1.2) mg/dl Est Cr Clr Drug Dosing 39.6 ml/min Est GFR ( Amer) 41.1 ml/min Est GFR (Non-Af Amer) 35.5 ml/min BUN/Creatinine Ratio 36.4 H (10-20) Glucose 97 (70-99(Fasting)) mg/dl POC Glucose 96 (70-99) mg/dl Calcium 9.2 (8.6-10.3) mg/dl Magnesium 2.0 (1.7-2.4) mg/dl 04/30/23 04/30/23 04/30/23 Range/Units 20:08 16:57 12:04 WBC (4.8-10.8) K/ul RBC (4.20-5.40) M/uL Hgb (12.0-16.0) g/dl Hct (37.0-47.0) % MCV (80.0-100.0) fL MCH (25.0-34.0) pg MCHC (32.0-36.0) g/dL RDW Std Deviation (36.4-46.3) fL RDW Coeff of Lidya (11.5-14.5) % Plt Count (130-400) K/uL Sodium (136-145) mmol/L Potassium (3.5-5.1) mmol/L Chloride (98-107) mmol/L Carbon Dioxide (21-32) mmol/L Anion Gap (3-11) BUN (6-23) mg/dl Creatinine (0.6-1.2) mg/dl Est Cr Clr Drug Dosing ml/min Est GFR ( Amer) ml/min Est GFR (Non-Af Amer) ml/min BUN/Creatinine Ratio (10-20) Glucose (70-99(Fasting)) mg/dl POC Glucose 97 91 93 (70-99) mg/dl Calcium (8.6-10.3) mg/dl Magnesium (1.7-2.4) mg/dl PG Care Time/CCT Total # of Minutes Spent Total Time Spent with Patient: Total time spent is greater than 50% in coordination of care (as documented) at patient's floor/unit and/or counseling patient: Coding Level of Care Code 53874 SUB INP/OBS CARE 3/50MIN Diagnoses Acute exacerbation of CHF (congestive heart failure) I50.9 Heart failure type: unspecified Hypothyroidism E03.9 Hypothyroidism type: unspecified CKD (chronic kidney disease) N18.9 Atrial fibrillation I48.0 Atrial fibrillation type: paroxysmal Diabetes mellitus type II, controlled E11.42; Z79.4 Diabetes mellitus complication detail: with polyneuropathy Diabetes mellitus complication status: with neurologic complications Diabetes mellitus mcc insulin use: with mcc use HTN (hypertension) I10 Hypertension type: primary hypertension Hypercholesteremia E78.00 Monoclonal gammopathy D47.2 Gout M1A.30X0 Chronicity: chronic Gout etiology: due to renal impairment Gout site: unspecified site Presence of tophus: without tophus History of kidney transplant Z94.0 (1) Acute exacerbation of CHF (congestive heart failure) Heart failure type: unspecified Qualified Code(s): I50.9 - Heart failure, unspecified (2) Hypothyroidism Hypothyroidism type: unspecified Qualified Code(s): E03.9 - Hypothyroidism, unspecified (4) Atrial fibrillation Atrial fibrillation type: paroxysmal Qualified Code(s): I48.0 - Paroxysmal atrial fibrillation (5) Diabetes mellitus type II, controlled Diabetes mellitus complication detail: with polyneuropathy Diabetes mellitus complication status: with neurologic complications Diabetes mellitus mcc insulin use: with extermination inspector use Qualified Code(s): E11.42 - Type 2 diabetes mellitus with diabetic polyneuropathy; Z79.4 - superintendent [employer] (current) use of insulin (6) HTN (hypertension) Hypertension type: primary hypertension Qualified Code(s): I10 - Essential (primary) hypertension (9) Gout Chronicity: chronic Gout etiology: due to renal impairment Gout site: unspecified site Presence of tophus: without tophus Qualified Code(s): 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
[2023-05-01] MEDS: INSULIN ASPART PER UNIT CHARGE SC SCH ×4 (08:04→21:08)
[2023-05-01] MEDS: LANTUS PER UNIT CHARGE SQ SCH (08:25)
[2023-05-01] MEDS: allopurinoL 300 MG TAB PO SCH (08:28)
[2023-05-01] MEDS: METOPROLOL TARTRATE 25 MG TAB PO SCH ×2 (08:28→21:19)
[2023-05-01] MEDS: dilTIAZem HCL 180 MG CAPCR PO SCH (08:28)
[2023-05-01] MEDS: FAMOTIDINE 20 MG TAB PO SCH ×2 (08:29→21:20)
[2023-05-01] MEDS: FUROSEMIDE 40 MG TAB PO SCH ×2 (08:29→16:59)
[2023-05-01] MEDS: APIXABAN 5 MG TABLET PO SCH ×2 (08:29→21:20)
[2023-05-01] MEDS: MAGNESIUM OXIDE 400 MG TAB PO SCH ×2 (08:29→21:19)
[2023-05-01] MEDS: FOLIC ACID 1 MG TAB PO SCH (08:29)
[2023-05-01] MEDS: TACROLIMUS 0.5 MG CAP PO SCH ×2 (08:29→21:18)
[2023-05-01] MEDS: MYCOPHENOLATE MOFETIL 250 MG CAP PO SCH ×2 (08:29→21:20)
--- NOTE | 2023-05-01 11:45 | Nephrology Progress Note ---
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 On admission creatinine was 1.6 with baseline creatinine 1.1-1.2. Started on IV Lasix twice a day with improvement in respiratory status. Urine output improved with net negative, total almost 5 L negative since admission. edema slightly improved. Left upper extremity venous Doppler was negative for any central venous stenosis, however she was noted to have some stenosis in her AV fistula which has not been in use. Cr slightly improved to 1.4 today. -- continue Lasix to 40 mg orally twice a day, accurate monitoring of intake and output, aim for net negative about 0.5 L/d. -- continue on tacrolimus 0.5 mg twice a day and CellCept 250 mg twice a day. -- continue on lisinopril 20 mg daily for now -- keep leg and upper extremity elevated, consider using compression stocking for lower extremity, follow low-salt diet. Will follow. Admission and Anticipated Discharge Date Admission Date: April 26, 2023 Codie Awad was seen and evaluated this morning. Overall she is feeling well, denies SOB, LE and left UE edema about the same. Cr slightly improved to 1.4, electrolyte acceptable. BP fair. net negative 370 mL. Weight in EMR possibly inaccurate. Review of Systems Review of Systems: detailed review of system was done and pertinent positives and negatives are mentioned above. Physical Exam Constitutional: WD/WN, vitals as above no acute distress Eyes: + anicteric sclerae Neck: normal visual inspection Respiratory: normal respiratory effort; no respiratory distress Auscul tation: + diminished lung sounds and + rhonchi (left base) Cardiovascular: Rate/Rhythm: regular rate and regular rhythm Heart Sounds: normal S1 and normal S2 Extremities: + edema (b/l LE and L UE, slight improvement.) Musculoskeletal: Extremities: extremities normal to inspection Skin: no rashes, warm and dry Neurologic: no focal motor deficits Psychiatric: Orientation: alert and oriented x 3 Affect: euthymic affect Results & Data Vital Signs (Past 12 Hours) Vital Signs Temp Pulse Pulse Pulse Resp BP Pulse Ox 05/01/23 08:10 05/01/23 07:59 79 05/01/23 07:45 36.6 C 80 18 133/76 94 05/01/23 04:00 36.8 C 74 20 129/84 98 O2 Del Method O2 Flow Rate 05/01/23 08:10 Room Air 05/01/23 07:59 05/01/23 07:45 Nasal Cannula 1.5 05/01/23 04:00 Nasal Cannula 2 PG Care Time/CCT Total # of Minutes Spent Total Time Spent with Patient: Total time spent is greater than 50% in coordination of care (as documented) at patient's floor/unit and/or counseling patient: Coding Level of Care Code 69749 SUB INP/OBS CARE 3/50MIN Diagnoses Acute kidney injury N17.9 CHF (congestive heart failure) I50.9 Edema R60.9 History of kidney transplant Z94.0 HTN (hypertension) I10 Hypertension type: primary hypertension (5) HTN (hypertension) Hypertension type: primary hypertension Qualified Code(s): I10 - Essential (primary) hypertension
[2023-05-01 14:24] LABS: Appearance Urine Turbid (Clear); Bacteria Urine Automated 1+ (Negative); Bilirubin Urine Negative (Negative); Blood Urine 3+ (Negative); Color Urine Yellow; Epithelial Cell Urine Auto >30 /lpf (0-5); Glucose Urine UA Negative (Negative); Ketones Urine Negative (Negative); Leukocyte Esterase Urine 3+ (Negative); Nitrite Urine Positive (Negative); Protein Urine 3+ (Negative); RBC Urine Automated >30 /hpf (0-4); Specific Gravity Urine 1.013 (1.000-1.030); Urobilinogen Urine Negative (Negative); WBC Urine Automated >30 /hpf (0-5)
[2023-05-01 14:40] LABS: Creatinine Urine Random 55.6 mg/dl
[2023-05-01 14:43] LABS: Protein Creatinine Ratio Urine 6.2 (0-0.2); Total Protein Urine Random 347.3 mg/dl (0-11.9)
--- NOTE | 2023-05-01 15:06 | Communication Note ---
Date of Service: May 01, 2023 Asked nursing to check ua/cx given appearance of urine in wheatley/renal function not yet at baseline. Denied any suprapubic discomfort however remaining with wheatley as placed on admission on IV diuretics. Urine appears infected, +nitrie, 3+ leuk est, >30WBC, 3+ blood/>30RBC, 1+ bacteria (noting >30 epi) Dc wheatley Start Amox PO given hx enterococcus/ecoli, sensitive to such Monitor urine cx/repeat bmp in AM
[2023-05-01] MEDS: lisinopril 20 MG TAB PO SCH (21:18)
[2023-05-01] MEDS: SIMVASTATIN 20 MG TAB PO SCH (21:20)
[2023-05-01] MEDS: AMOXICILLIN 500 MG CAP PO SCH (21:20)
[2023-05-02 05:13] LABS: Hematocrit (blood only) 37.9 % (37.0-47.0); Hemoglobin 12.7 g/dl (12.0-16.0); Mean Corpuscular Hemoglobin 31.8 pg (25.0-34.0); Mean Corpuscular Hgb Conc 33.5 g/dL (32.0-36.0); Platelet Count 98 K/uL (130-400); RDW Coefficient of Variation 19.5 % (11.5-14.5); RDW Standard Deviation 66.8 fL (36.4-46.3); Red Blood Count 3.99 M/uL (4.20-5.40); White Blood Count 6.37 K/ul (4.8-10.8)
[2023-05-02 05:23] LABS: BUN Creatinine Ratio 36.6 (10-20); Calcium 9.1 mg/dl (8.6-10.3); Creatinine Clr Calc Pharmacy 43.1 ml/min; Est GFR (African American) 44.5 ml/min; Est GFR (Non-African American) 38.4 ml/min; Potassium 4.3 mmol/L (3.5-5.1)
[2023-05-02] MEDS: LEVOTHYROXINE SODIUM 88 MCG TABLET PO SCH (05:31)
--- NOTE | 2023-05-02 07:41 | XRay Report ---
XR chest 1V portable HISTORY: 77 years-old Female follow up congestion/effusions acute shortness of breath. COMPARISON: 04/30/2023 TECHNIQUE: AP view of the chest FINDINGS: The patient is rotated toward the left.Cardiac silhouette is enlarged. Pulmonary vascular congestion with interstitial coarsening again noted. No pneumothorax. Small pleural effusions with bibasilar con solidation. Degenerative changes of the shoulders and spine. Sigmoidal scoliosis of the spine. IMPRESSION: 1. Cardiomegaly with unchanged pulmonary edema. 2. Persistent layering pleural effusions with bibasilar consolidation. ACT 112: Negative or not required by law. The above report was generated using voice recognition software. It may contain grammatical, syntax o r spelling errors. Electronically signed by: Clemente Bear M.D. 05/02/2023 7:40 AM
[2023-05-02] MEDS: INSULIN ASPART PER UNIT CHARGE SC SCH ×4 (08:09→20:29)
[2023-05-02] MEDS: MYCOPHENOLATE MOFETIL 250 MG CAP PO SCH ×2 (09:35→20:32)
[2023-05-02] MEDS: AMOXICILLIN 500 MG CAP PO SCH (09:35)
[2023-05-02] MEDS: FOLIC ACID 1 MG TAB PO SCH (09:36)
[2023-05-02] MEDS: FUROSEMIDE 40 MG TAB PO SCH ×2 (09:36→17:04)
[2023-05-02] MEDS: APIXABAN 5 MG TABLET PO SCH ×2 (09:36→20:32)
[2023-05-02] MEDS: METOPROLOL TARTRATE 25 MG TAB PO SCH ×2 (09:36→20:30)
[2023-05-02] MEDS: dilTIAZem HCL 180 MG CAPCR PO SCH (09:36)
[2023-05-02] MEDS: allopurinoL 300 MG TAB PO SCH (09:36)
[2023-05-02] MEDS: TACROLIMUS 0.5 MG CAP PO SCH ×2 (09:36→20:32)
[2023-05-02] MEDS: MAGNESIUM OXIDE 400 MG TAB PO SCH ×2 (09:37→20:32)
[2023-05-02] MEDS: FAMOTIDINE 20 MG TAB PO SCH ×2 (09:37→20:32)
[2023-05-02] MEDS: LANTUS PER UNIT CHARGE SQ SCH (09:51)
--- NOTE | 2023-05-02 12:51 | Nephrology Progress Note ---
Date of Service May 02, 2023 Assessment & Plan (1) Acute kidney injury: Plan: Creatinine stable. Electrolytes acceptable. Volume status improving. Document daily weights. Close outpatient follow up regarding proteinuria and history of SHERLYN. (2) CHF (congestive heart failure): Plan: Continue lisinopril as Rx. Improving. Continue furosemide 40 mg BID. (3) Edema: Plan: Clinically improving. Discussed with PT/OT obtaining a compression sleeve. Known stenosis of AVF. Advised elevation and compression for edema. (4) History of kidney transplant: Plan: Continue tacrolimus and MMF as Rx (5) HTN (hypertension): Plan: BP acceptable. Continued with diltiazem, metoprolol, lisinopril. No change in therapy. Volume status improving. Dietary sodium and fluid restriction. Admission and Anticipated Discharge Date Admission Date: April 26, 2023 Subjective No acute events overnight. Delmi reports continued improvement today. She was seen and evaluated while sitting in her recliner. Edema improving. She is breathing comfortably. No fevers or chills. Hopeful to be discharged home. I spoke with physical therapy this AM. Review of Systems Review of Systems: All systems reviewed & are unremarkable except as noted in HPI & below Physical Exam Constitutional: WD/WN, vitals as above no acute distress Eyes: + anicteric sclerae Neck: normal visual inspection Respiratory: normal respiratory effort; no respiratory distress Auscultation: + diminished lung sounds and + rhonchi (left base) Cardiovascular: Rate/Rhythm: regular rate and regular rhythm Heart Sounds: normal S1 and normal S2 Extremities: + edema (b/l LE and L UE, slight improvement.) Musculoskeletal: Extremities: extremities normal to inspection Skin: no rashes, warm and dry Neurologic: no focal motor deficits Psychiatric: Orientation: alert and oriented x 3 Affect: euthymic affect Results & Data Vital Signs (Past 12 Hours) Vital Signs Temp Pulse Pulse Resp BP Pulse Ox O2 Del Method 05/02/23 11:55 36.4 C L 91 H 19 131/74 94 Room Air 05/02/23 08:00 74 05/02/23 08:31 36.5 C 83 19 135/73 93 Room Air 05/02/23 03:04 36.8 C 73 16 112/75 94 Nasal Cannula 05/02/23 00:54 74 O2 Flow Rate 05/02/23 11:55 05/02/23 08:00 05/02/23 08:31 05/02/23 03:04 2.0 05/02/23 00:54 Laboratory Results Laboratory Results - last 24 hr 05/01/23 05/01/23 05/01/23 16:39 20:12 Unknown WBC RBC Hgb Hct MCV MCH MCHC RDW Std Deviation RDW Coeff of Lidya Plt Count Sodium Potassium Chloride Carbon Dioxide Anion Gap BUN Creatinine Est Cr Clr Drug Dosing Est GFR ( Amer) Est GFR (Non-Af Amer) BUN/Creatinine Ratio Glucose POC Glucose 101 H 135 H Calcium Magnesium Urine Color Urine Appearance Urine pH Ur Specific [place] Urine Protein Urine Glucose (UA) Urine Ketones Urine Blood Urine Nitrite Urine Bilirubin Urine Urobilinogen Ur Leukocyte Esterase Urine WBC (Auto) Urine RBC (Auto) U Hyaline Cast (Auto) U Epithel Cells (Auto) Urine Bacteria (Auto) Ur Random Creatinine 55.6 U Random Total Protein 347.3 H Protein/Creatinin Ratio 6.2 H 05/01/23 05/02/23 05/02/23 Unknown 04:36 04:36 WBC 6.37 RBC 3.99 L Hgb 12.7 Hct 37.9 MCV 95.0 MCH 31.8 MCHC 33.5 RDW Std Deviation 66.8 H RDW Coeff of Lidya 19.5 H Plt Count 98 L Sodium 141 Potassium 4.3 Chloride 107 Carbon Dioxide 29 Anion Gap 5 BUN 49 H Creatinine 1.34 H Est Cr Clr Drug Dosing 43.1 Est GFR ( Amer) 44.5 Est GFR (Non-Af Amer) 38.4 BUN/Creatinine Ratio 36.6 H Glucose 100 H POC Glucose Calcium 9.1 Magnesium 2.0 Urine Color Yellow Urine Appearance Turbid A Urine pH 6.0 Ur Specific [place] 1.013 Urine Protein 3+ H Urine Glucose (UA) Negative Urine Ketones Negative Urine Blood 3+ H Urine Nitrite Positive A Urine Bilirubin Negative Urine Urobilinogen Negative Ur Leukocyte Esterase 3+ H Urine WBC (Auto) >30 H Urine RBC (Auto) >30 H U Hyaline Cast (Auto) 5-10 H U Epithel Cells (Auto) >30 H Urine Bacteria (Auto) 1+ H Ur Random Creatinine U Random Total Protein Protein/Creatinin Ratio 05/02/23 05/02/23 07:53 11:50 WBC RBC Hgb Hct MCV MCH MCHC RDW Std Deviation RDW Coeff of Lidya Plt Count Sodium Potassium Chloride Carbon Dioxide Anion Gap BUN Creatinine Est Cr Clr Drug Dosing Est GFR ( Amer) Est GFR (Non-Af Amer) BUN/Creatinine Ratio Glucose POC Glucose 92 124 H Calcium Magnesium Urine Color Urine Appearance Urine pH Ur Specific [place] Urine Protein Urine Glucose (UA) Urine Ketones Urine Blood Urine Nitrite Urine Bilirubin Urine Urobilinogen Ur Leukocyte Esterase Urine WBC (Auto) Urine RBC (Auto) U Hyaline Cast (Auto) U Epithel Cells (Auto) Urine Bacteria (Auto) Ur Random Creatinine U Random Total Protein Protein/Creatinin Ratio PG Care Time/CCT Total # of Minutes Spent Total Time Spent with Patient: Total time spent is greater than 50% in coordination of care (as documented) at patient's floor/unit and/or counseling patient: Coding Level of Care Code 58054 SUB INP/OBS CARE 3/50MIN Diagnoses Acute kidney injury N17.9 CHF (congestive heart failure) I50.9 Edema R60.9 History of kidney transplant Z94.0 HTN (hypertension) I10 Hypertension type: primary hypertension (5) HTN (hypertension) Hypertension type: primary hypertension Qualified Code(s): I10 - Essential (primary) hypertension
--- NOTE | 2023-05-02 13:44 | Hospitalist Progress Note ---
Date of Service May 02, 2023 Assessment & Plan (1) Acute exacerbation of CHF (congestive heart failure): Plan: Acute on chronic HFpEF, acute, unstable -- improving BNP elevation 617 (614 w/ CHF admit 02/2022) along w/ 20lb weight gain reported CXR w/ congestive failure, b/l opacities likely representing pulm edema with layering effusions/dependent consolidation ECHO no wma, LV normal in structure/function, EF 60-65%. Moderate MR, RVSP elevated 50-60mmhg Lasix 80mg IV BID on admission Nephrology switched to Lasix 40mg PO BID to start evening 04/30 Electrolytes improved and stable, BP stable Monitor weights currently down about 1 Kg Continue fluid restriction and monitor I&O Currently on room air -- O2 at night. Will need overnight pulse ox prior to dc from rehab ([facility] to have bed this week) Will order ambulatory pulse ox (2) Hypothyroidism: Plan: Hypothyroidism, chronic -- recently adjusted per patient in the past month from 75mcg to 88mcg TSH elevated to 5.7 04/04/23 (prior to that was in the 7s in February w/ weight gain/cough at that time) Repeat TSH w/ PCP in another 1 weeks recommended (3) CKD (chronic kidney disease): Plan: SHERLYN on CKD w/ hx PCKD and DM2, history of renal transplant, acute on chronic, unstable Allograft transplant, with good filtration. Continue tacrolimus and mycophenolate. Tacrolimus levels checked earlier this month on 04/04, levels were 8.3 therapeutic at that time Cr 1.34 currently continue to monitor (4) Atrial fibrillation: Plan: Paroxysmal A-fib, chronic, stable --> currently in afib Remains on eliquis 5mg BID, dilt 180mg XR, metoprolol 37.5mg BID Keep Mag ~2, K~4 No CP, monitoring on telemetry -- rates 60-70s (5) Diabetes mellitus type II, controlled: Plan: Type II DM, chronic, stable A1c 6.0 Weight-based basal 9 units twice daily, CF 45, ratio 15 Home basal 5 units daily continued with slightly loosened CF 50/ratio 20 given low home requirements and good admitting control BSGs reviewed -- excellent control (6) HTN (hypertension): Plan: Hypertension, chronic. stable Continues on metoprolol, diltiazem Lisinopril resumed, remains on lasix BID as above but decreased dose (for now) Consideration to increase lisinopril if BP allows -- DENIES ANY LIGHTHEADEDNESS/DIZZINESS ON EXAM AT PRESENT Monitor (7) Hypercholesteremia: Plan: Hyperlipidemia, chronic, stable Continue simvastatin 20 mg p.o. 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, FSGS also noted IgG repletion deferred to periodic IgG levels checked as outpatient -With thrombocytopenia, plts stable on prior labs (9) Gout: Plan: Gout, chronic, stable No acute exacerbation Continue allopurinol Allergic rhinitis, chronic Continue fexofenadine daily as needed (10) History of kidney transplant: Plan: - as noted, cellcept/tacrolimus order -Follows with Dr Isaiah Martinez Plan continued inpatient stay PT/OT rec rehab -- [facility] possibly have bed on Tuesday HALEY working on insurance approval Will downgrade from tele to med surg if a bed is available Await final urine culture (prelim is probable pseudomonas species) Admission and Anticipated Discharge Date Admission Date: April 26, 2023 Subjective Patient is awake sitting up in recliner she states she is feeling better with less swelling. PT evaluations recommended SNF and patient was agreeable to [facility]. HALEY is working on insurance authorization. Nursing was asking to do wn grade patient off telemetry if possible. Urine culture preliminarily showing possible pseudomonas species. Review of Systems Review of Systems: Patient currently saturating well on room air and denies any chest pain, dyspnea, SOB, cough, congestion, fever, chills, abdominal pain, nausea, vomiting or changes nher bowel movements. Patient denies any dysuria, urinary frequency or hesitancy. Physical Exam Constitutional: WD/WN, vitals as above Neck: trachea midline, no thyromegaly Respiratory: normal respiratory effort, lungs clear to auscultation Cardiovascular: Rate/Rhythm: + irregularly irregular Heart Sounds: + murmur traced edema Gastrointestinal (Abdomen): Inspection/Auscultation: normal bowel sounds Obese, soft and nontender Psychiatric: A+Ox3, euthymic affect Results & Data Results & Data Vital Signs (Past 12 Hours) Vital Signs Temp Pulse Pulse Resp BP Pulse Ox O2 Del Method 05/02/23 11:55 36.4 C L 91 H 19 131/74 94 Room Air 05/02/23 08:00 74 05/02/23 08:31 36.5 C 83 19 135/73 93 Room Air 05/02/23 03:04 36.8 C 73 16 112/75 94 Nasal Cannula O2 Flow Rate 05/02/23 11:55 05/02/23 08:00 05/02/23 08:31 05/02/23 03:04 2.0 Laboratory Results Abnormal lab results 05/01/23 05/01/23 05/01/23 Range/Units 16:39 20:12 Unknown RBC (4.20-5.40) M/uL RDW Std Deviation (36.4-46.3) fL RDW Coeff of Lidya (11.5-14.5) % Plt Count (130-400) K/uL BUN (6-23) mg/dl Creatinine (0.6-1.2) mg/dl BUN/Creatinine Ratio (10-20) Glucose (70-99(Fasting)) mg/dl POC Glucose 101 H 135 H (70-99) mg/dl Urine Appearance (Clear) Urine Protein (Negative) Urine Blood (Negative) Urine Nitrite (Negative) Ur Leukocyte Esterase (Negative) Urine WBC (Auto) (0-5) /hpf Urine RBC (Auto) (0-4) /hpf U Hyaline Cast (Auto) (0-5) /lpf U Epithel Cells (Auto) (0-5) /lpf Urine Bacteria (Auto) (Negative) U Random Total Protein 347.3 H (0-11.9) mg/dl Protein/Creatinin Ratio 6.2 H (0-0.2) 05/01/23 05/02/23 05/02/23 Range/Units Unknown 04:36 04:36 RBC 3.99 L (4.20-5.40) M/uL RDW Std Deviation 66.8 H (36.4-46.3) fL RDW Coeff of Lidya 19.5 H (11.5-14.5) % Plt Count 98 L (130-400) K/uL BUN 49 H (6-23) mg/dl Creatinine 1.34 H (0.6-1.2) mg/dl BUN/Creatinine Ratio 36.6 H (10-20) Glucose 100 H (70-99(Fasting)) mg/dl POC Glucose (70-99) mg/dl Urine Appearance Turbid A (Clear) Urine Protein 3+ H (Negative) Urine Blood 3+ H (Negative) Urine Nitrite Positive A (Negative) Ur Leukocyte Esterase 3+ H (Negative) Urine WBC (Auto) >30 H (0-5) /hpf Urine RBC (Auto) >30 H (0-4) /hpf U Hyaline Cast (Auto) 5-10 H (0-5) /lpf U Epithel Cells (Auto) >30 H (0-5) /lpf Urine Bacteria (Auto) 1+ H (Negative) U Random Total Protein (0-11.9) mg/dl Protein/Creatinin Ratio (0-0.2) 05/02/23 Range/Units 11:50 RBC (4.20-5.40) M/uL RDW Std Deviation (36.4-46.3) fL RDW Coeff of Lidya (11.5-14.5) % Plt Count (130-400) K/uL BUN (6-23) mg/dl Creatinine (0.6-1.2) mg/dl BUN/Creatinine Ratio (10-20) Glucose (70-99(Fasting)) mg/dl POC Glucose 124 H (70-99) mg/dl Urine Appearance (Clear) Urine Protein (Negative) Urine Blood (Negative) Urine Nitrite (Negative) Ur Leukocyte Esterase (Negative) Urine WBC (Auto) (0-5) /hpf Urine RBC (Auto) (0-4) /hpf U Hyaline Cast (Auto) (0-5) /lpf U Epithel Cells (Auto) (0-5) /lpf Urine Bacteria (Auto) (Negative) U Random Total Protein (0-11.9) mg/dl Protein/Creatinin Ratio (0-0.2) PG Care Time/CCT Total # of Minutes Spent Total Time Spent with Patient: Total time spent is greater than 50% in coordination of care (as documented) at patient's floor/unit and/or counseling patient: Coding Level of Care Code 76360 SUB INP/OBS CARE 2/35MIN Diagnoses Acute exacerbation of CHF (congestive heart failure) I50.9 Heart failure type: unspecified Hypothyroidism E03.9 Hypothyroidism type: unspecified CKD (chronic kidney disease) N18.9 Atrial fibrillation I48.0 Atrial fibrillation type: paroxysmal Diabetes mellitus type II, controlled E11.42; Z79.4 Diabetes mellitus longterm insulin use: with longterm use Diabetes mellitus complication status: with neurologic complications Diabetes mellitus complication detail: with polyneuropathy HTN (hypertension) I10 Hypertension type: primary hypertension Hypercholesteremia E78.00 Monoclonal gammopathy D47.2 Gout M1A.30X0 Gout site: unspecified site Gout etiology: due to renal impairment Chronicity: chronic Presence of tophus: without tophus History of kidney transplant Z94.0 (1) Acute exacerbation of CHF (congestive heart failure) Heart failure type: unspecified Qualified Code(s): I50.9 - Heart failure, unspecified (2) Hypothyroidism Hypothyroidism type: unspecified Qualified Code(s): E03.9 - Hypothyroidism, unspecified (4) Atrial fibrillation Atrial fibrillation type: paroxysmal Qualified Code(s): I48.0 - Paroxysmal atrial fibrillation (5) Diabetes mellitus type II, controlled Diabetes mellitus predatory animal exterminator insulin use: with longterm use Diabetes mellitus complication status: with neurologic complications Diabetes mellitus complication detail: with polyneuropathy Qualified Code(s): E11.42 - Type 2 diabetes mellitus with diabetic polyneuropathy; Z79.4 - predatory animal exterminator (current) use of insulin (6) HTN (hypertension) Hypertension type: primary hypertension Qualified Code(s): I10 - Essential (primary) hypertension (9) Gout Gout site: unspecified site Gout etiology: due to renal impairment Chronicity: chronic Presence of tophus: without tophus Qualified Code(s): 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
[2023-05-02] MEDS: CEFEPIME 1,000 MG in SYRINGE 0 ML IV SCH (15:45)
[2023-05-02] MEDS: SIMVASTATIN 20 MG TAB PO SCH (20:32)
[2023-05-02] MEDS: lisinopril 20 MG TAB PO SCH (20:32)
[2023-05-02] MEDS ORDERED: AMOXICILLIN 875 MG TAB PO SCH (21:00)
[2023-05-03] MEDS: CEFEPIME 1,000 MG in SYRINGE 0 ML IV SCH (03:34)
[2023-05-03] MEDS: LEVOTHYROXINE SODIUM 88 MCG TABLET PO SCH (06:00)
[2023-05-03 06:33] LABS: Hematocrit (blood only) 36.7 % (37.0-47.0); Hemoglobin 12.4 g/dl (12.0-16.0); Mean Corpuscular Hemoglobin 31.9 pg (25.0-34.0); Mean Corpuscular Hgb Conc 33.8 g/dL (32.0-36.0); Mean Corpuscular Volume 94.3 fL (80.0-100.0); Platelet Count 96 K/uL (130-400); RDW Coefficient of Variation 19.3 % (11.5-14.5); RDW Standard Deviation 64.7 fL (36.4-46.3); Red Blood Count 3.89 M/uL (4.20-5.40); White Blood Count 6.72 K/ul (4.8-10.8)
[2023-05-03 06:34] LABS: Albumin Level 3.2 gm/dl (3.4-5.0); BUN Creatinine Ratio 33.6 (10-20); Calcium 9.3 mg/dl (8.6-10.3); Creatinine Clr Calc Pharmacy 44.9 ml/min; Est GFR (Non-African American) 40.6 ml/min; Phosphorus 3.4 mg/dl (2.5-4.9); Potassium 4.3 mmol/L (3.5-5.1)
[2023-05-03] MEDS: LANTUS PER UNIT CHARGE SQ SCH (08:19)
[2023-05-03] MEDS: INSULIN ASPART PER UNIT CHARGE SC SCH ×2 (08:19→12:55)
[2023-05-03] MEDS ORDERED: levoFLOXacin 500 MG TAB PO SCH (09:00)
[2023-05-03] MEDS: MYCOPHENOLATE MOFETIL 250 MG CAP PO SCH (09:35)
[2023-05-03] MEDS: APIXABAN 5 MG TABLET PO SCH (09:35)
[2023-05-03] MEDS: FAMOTIDINE 20 MG TAB PO SCH (09:36)
[2023-05-03] MEDS: MAGNESIUM OXIDE 400 MG TAB PO SCH (09:36)
[2023-05-03] MEDS: FOLIC ACID 1 MG TAB PO SCH (09:36)
[2023-05-03] MEDS: dilTIAZem HCL 180 MG CAPCR PO SCH (09:36)
[2023-05-03] MEDS: TACROLIMUS 0.5 MG CAP PO SCH (09:36)
[2023-05-03] MEDS: allopurinoL 300 MG TAB PO SCH (09:36)
[2023-05-03] MEDS: FUROSEMIDE 40 MG TAB PO SCH (09:36)
--- NOTE | 2023-05-03 09:43 | Discharge Summary ---
Date of Service May 03, 2023 Admission HPI Per Admitting Provider Delmi is a 77-year-old female with a past medical history of diabetic CKD s/p renal transplant 1995, type II DM, atrial fibrillation, hypothyroidism, hypercholesterolemia, gout, hyperparathyroidism, NMSC who presents with 20 pound weight gain, swelling of bilateral lower extremities. She is short of breath with exertion. She is not hypoxic in the ER. On arrival to to the ER CXR shows pulmonary vascular congestion, bilateral airspace opacities consistent with interstitial edema, dependent consolidation/small pleural effusions. Creatinine baseline is around 1.21.35, creatinine is elevated to 1.47 on admission. BNP is elevated at 617. While patient is not hypoxic due to fluid overloaded on chest x-ray, worsening symptoms, desaturation with activity, and renal transplant status patient is recommended for inpatient admission for diuresis with renal function monitoring. Delmi comes in with her daughter for 2 weeks of worsening fluid retention. +swelling in her legs, arms, and abdomen.+orthopnea. No chest pain or chest pressure. +SoB with exertion, feels ok when at rest and sitting up in bed. Has been taking lasix twice daily, does not miss any doses. Follows with Dr. Collins who has her on 80mg twice daily. UOP has not changed. No urinary hesitancy or diffiuclty urination. Does not know her dry weight, thinks this is around 96 kg. She reports she does watch her salt intake, denies dietary indiscretion including chips, crackers, salted food, soups, hotdogs, or change in diet over the weekend. She reports her swelling has just gradually gotten worse in her legs, both arms (left arm is with a fistula not accessed in 20 years and with more swelling at baseline in the right) and even up her back and abdomen. She has not had any pain. She does rapidly feel short of breath trying to walk to the bathroom, denies shortness of breath while sitting in bed during HPI. Does desaturate to around 87-88% with conversation while in room with good waveform on pulse ox Medical History: Reviewed Medications: Reviewed. Did not take any medications this morning Surgical History: Reviewed Family history: Reviewed Allergies: Reviewed Social History: Denies tobacco/alcohol use Code Status: Full code. Discussed with Delmi and her daughter at the bedside. She reports she would want full code/full measures, and if resuscitation were to lead to a quality of life not consistent with her goals she would want her family to have the discussion of whether to withdraw care at that point Admission Exam Per Admitting Provider General: A&Ox3. NAD. Cooperative. HEENT: Atraumatic, normocephalic. Vision/hearing grossly intact. Pulm: +bibasilar rales. Symmetrical chest rise. No increased work of breathing. No respiratory distress. Cardiac: irir, +sm. Radial pulses intact and symmetrical. +JVD. Abdominal: Reducible umbilical hernia. Nontender, nondistended, soft. BS present. +diffuse pitting abdominal edema including the back Ext: warm/dry. 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 +diffuse severe pitting edema through the lower extremities and thighs bilaterally. Sensation to soft touch intact but diminished qualitatively in the feet bilaterally. Upper extremities with left greater than right swelling in the arms at baseline and pitting edema through the hands. Left upper extremity with brachiocephalic fistula in place with good thrill, no overlying erythema/warmth Principal Diagnosis Acute on Chronic CHFpEF SHERLYN with CKD complicated UTI Discharge Exam Constitutional WD/WN, vitals as above Neck trachea midline, no thyromegaly Respiratory normal respiratory effort, lungs clear to auscultation Cardiovascular Rate/Rhythm: + irregularly irregular Heart Sounds: + murmur Gastrointestinal (Abdomen) Inspection/Auscultation: normal bowel sounds Psychiatric A+Ox3, euthymic affect Discharge Data Allergies Allergy/AdvReac Type Severity Reaction Status Date / Time adhesive Allergy Intermediate ERYTHEMA Verified 04/26/23 09:27 WITH ADHESIVE TAPE, blisters No Known Drug Allergies Allergy Verified 04/26/23 09:27 Consultations 04/26/23 12:10 ED Decision to Admit Stat 04/28/23 07:56 Consult Nephrology Routine Ordered Studies 04/28/23 16:40 US venous doppler UE LT Routine 1. No DVT within the visualized left upper extremity. 2. Reversed flow within the left internal jugular vein. 3. Increased velocity of the fistula noted at the antecubital fossa near the anastomosis. This favors an area of hemodynamically significant stenosis. CXR 04/30/23 IMPRESSION: 1. Cardiomegaly with unchanged pulmonary edema. 2. Persistent layering pleural effusions with bibasilar consolidation. Hospital Course (1) Acute exacerbation of CHF (congestive heart failure): Acute on chronic HFpEF, acute, unstable -- improving BNP elevation 617 (614 w/ CHF admit 02/2022) along w/ 20lb weight gain reported CXR w/ congestive failure, b/l opacities likely representing pulm edema with layering effusions/dependent consolidation ECHO no wma, LV normal in structure/function, EF 60-65%. Moderate MR, RVSP elevated 50-60mmhg Lasix 80mg IV BID on admission Nephrology switched to Lasix 40mg PO BID to start evening 04/30 Electrolytes improved and stable, BP stable - 137/78 Monitor weights currently down about 1 Kg Continue fluid restriction and monitor I&O Currently on room air -- O2 at night 2L. (2) Hypothyroidism: Hypothyroidism, chronic -- recently adjusted per patient in the past month from 75mcg to 88mcg TSH elevated to 5.7 04/04/23 (prior to that was in the 7s in February w/ weight gain/cough at that time) Repeat TSH w/ PCP in another 1 weeks recommended (3) CKD (chronic kidney disease): SHERLYN on CKD w/ hx PCKD and DM2, history of renal transplant, acute on chronic, unstable Allograft transplant, with good filtration. Continue tacrolimus and mycophenolate. Tacrolimus levels checked earlier this month on 04/04, levels were 8.3 therapeutic at that time Cr 1.28 currently continue to monitor (4) Atrial fibrillation: Paroxysmal A-fib, chronic, stable --> currently in afib Remains on eliquis 5mg BID, dilt 180mg XR, metoprolol 37.5mg BID No CP, monitoring on telemetry -- rates 60-70s (5) Diabetes mellitus type II, controlled: Type II DM, chronic, stable A1c 6.0 Weight-based basal 9 units twice daily, CF 45, ratio 15 Home basal 5 units daily continued with slightly loosened CF 50/ratio 20 given low home requirements and good admitting control BSGs reviewed -- excellent control (6) HTN (hypertension): Hypertension, chronic. stable Continues on metoprolol, diltiazem Lisinopril resumed, remains on lasix BID as above but decreased dose (7) Hypercholesteremia: chronic, stable Continue simvastatin 20 mg p.o. 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 History of diabetic peripheral neuropathy and lumbosacral neuropathy noted on EMG (12) Complicated UTI (urinary tract infection): Had 2 doses of IV cefepime change today to Levaquin 500mg daily for 6 doses Plan [facility] (pseudomonas and pansensitive) will change from Cefepime to po Levaquin Will also use compression sleeve to left arm for known stenosis of AVF Total Time Total Time Spent Total Time Spent (In Minutes): 40 Discharge Plan Discharge Items Patient Disposition: [facility] Reason For Visit: [facility] CHF Discharge Diagnosis: Acute on chronic CHFpEF Complicated UTI with indwelling Kitchen Activity: Resume your previous activity Lifting: Gradually increase as tolerated Weightbearing: Full weightbearing Non-emergency contact: Primary Care Provider and Environmental Web Crawler Call non-emergency contact if: you have any medication questions, your symptoms worsen, your pain is worsening and your temperature is above 101.5 Follow-up/Referrals: Jennifer Crum MD [Primary Care Provider] - 05/13/23 3:00 pm (Will see LUZ Rhoades) Diet: Carb Consistent or DM2, Heart Healthy and Low Sodium (2gm) Ambulatory Orders: Basic Metabolic Panel (Routine) Timeframe: 3 Days Location: Determined by Patient Ordered By: Daniela Costa Complete Blood Count no Diff (Routine) Timeframe: 3 Days Location: Determined by Patient Ordered By: Daniela Costa Addtl Attending Provider Instructions: You were admitted with acute CHF exacerbation and also evaluated by nephrology. Lasix wa adjusted to 40mg BID. Also were found to have a urinary tract infection and treated with IV antibiotics and then changed to oral antibiotics today. You will need to take another 6 days of Levaquin 500mg one per day, starting tonight after dinner. and finish the Levaquin 05/08/23. You will need to have repeat labs in 3-5 days and will send the labs to Dr Collins. Suggest compression sleeve left arm for known stenosis of AVF. Continue PT/OT at [facility] Will get a compression sleeve for left arm You will need repeat lab work in 3-5 days Pending Studies at Discharge: No Stand-Alone Forms: My [facility] Skilled Items Patient informed of condition?: Yes DNR: No Discharge Level of Care: Skilled Communicable Disease: No Discharge Prognosis: Stable Lines: None Urinary Catheter: Yes Medications and DC Order Prescriptions: New metoprolol tartrate 25 mg Tablet 37.5 mg PO BID Qty: 60 0RF furosemide 40 mg Tablet 40 mg PO BID17 Qty: 60 0RF levofloxacin 500 mg Tablet 500 mg PO DAILY Qty: 6 0RF Continued multivitamin Tablet 1 tab PO QAM Qty: 0 omega [id number]-fish oil [Fish Oil] 1,000 mg (120 mg-180 mg) Capsule 1,000 mg PO BID Qty: 0 folic acid 1 mg Tablet 1 mg PO QAM Qty: 0 lutein 20 mg Capsule 20 mg PO QPM Qty: 0 simvastatin 20 mg tablet 20 mg PO HS Qty: 90 3RF (DME) pen needle, diabetic [BD Ultra-Fine Germania Pen Needle] 32 gauge x 5/32" needle See Rx Instructions .Route Qty: 100 3RF Rx Instructions: Inject insulin daily as directed insulin glargine [Lantus Solostar U-100 Insulin] 100 unit/mL (3 mL) insulin pen 5 unit SUBCUT QAM Qty: 15 3RF allopurinol 300 mg tablet 300 mg PO DAILY Qty: 90 1RF Rx Instructions: 300mg po in the morning famotidine 20 mg tablet 20 mg PO BID Qty: 60 5RF (DME) blood sugar diagnostic Strip See Rx Instructions .ROUTE .MEDSUPPLY Qty: 100 1RF Rx Instructions: Test 4 times daily levothyroxine 88 mcg tablet 88 mcg PO DAILYBB Qty: 90 3RF denosumab 60 mg/mL syringe 60 mg subcut ONCE Qty: 1 0RF Rx Instructions: twice a yr. gets next week Eliquis 5 mg tablet 5 mg PO BID Qty: 180 3RF tacrolimus 0.5 mg capsule 0.5 mg PO Q12 lisinopril 20 mg tablet 20 mg PO HS Qty: 90 3RF diltiazem HCl 180 mg capsule,extended release 24hr 180 mg PO QAM Qty: 90 3RF fexofenadine [Mariya Allergy] 180 mg tablet 180 mg PO DAILY PRN (Reason: Allergy Symptoms) magnesium oxide 400 mg (241.3 mg magnesium) tablet 400 mg PO BID Qty: 180 3RF (DME) lancets [OneTouch Delica Plus Lancet] 33 gauge misc See Dose Instructions .ROUTE .MEDSUPPLY Qty: 100 Rx Instructions: As directed mycophenolate mofetil 250 mg capsule 250 mg PO Q12 Ocuvite Adult 50 Plus 250-5-1 mg Capsule 1 cap PO BID acetaminophen 650 mg Tablet 650 mg PO Q4H PRN (Reason: Pain) albuterol sulfate [Ventolin HFA] 90 mcg/actuation HFA aerosol inhaler 1 inh inhalation QID PRN (Reason: Wheezing) Discontinued metoprolol tartrate 25 mg tablet 37.5 mg PO BID 90 Days Qty: 270 3RF furosemide 40 mg tablet 80 mg PO BID Qty: 360 3RF Hold Instructions: 3 days Discharge Orders: Discharge Order (Routine); Ordered 05/03/23 Ordered By: Daniela Costa Admission Data Admit Date/Time: 04/26/23 12:44 Attending Provider: Med Whittington Admit Provider: Jovon San Primary Care Provider: Jennifer Crum Other Providers: Jovon San ; Jina Giraldo Coding Level of Care Code 89243 INP/OBS DISCH >30 MIN Diagnoses Acute exacerbation of CHF (congestive heart failure) I50.9 Heart failure type: unspecified Hypothyroidism E03.9 Hypothyroidism type: unspecified CKD (chronic kidney disease) N18.9 Atrial fibrillation I48.0 Atrial fibrillation type: paroxysmal Diabetes mellitus type II, controlled E11.42; Z79.4 Diabetes mellitus complication detail: with polyneuropathy Diabetes mellitus complication status: with neurologic complications Diabetes mellitus terminal operator insulin use: with skilled nursing use HTN (hypertension) I10 Hypertension type: primary hypertension Hypercholesteremia E78.00 Monoclonal gammopathy D47.2 Gout M1A.30X0 Chronicity: chronic Gout etiology: due to renal impairment Gout site: unspecified site Presence of tophus: without tophus History of kidney transplant Z94.0 Diabetes E11.9 Complicated UTI (urinary tract infection) N39.0 Time Spent (min) 40
--- NOTE | 2023-05-03 10:38 | Nephrology Progress Note ---
Date of Service May 03, 2023 Assessment & Plan (1) Acute kidney injury: Plan: Creatinine stable. Electrolytes acceptable. Volume status improving. Document daily weights. Close outpatient follow up regarding proteinuria and history of SEHRLYN. Follow up with me in the nephrology clinic within 2 weeks of discharge. Labs to be updated within 1 week. (2) CHF (congestive heart failure): Plan: Continue lisinopril as Rx. Continue furosemide 40 mg PO BID. (3) Edema: Plan: Clinically improving. Discussed with PT/OT obtaining a compression sleeve. Known stenosis of AVF. Advised elevation and compression for edema. (4) History of kidney transplant: Plan: Continue tacrolimus and MMF as Rx (5) HTN (hypertension): Plan: BP acceptable. Continued with diltiazem, metoprolol, lisinopril. No change in therapy. Volume status improving. Dietary sodium and fluid restriction. (6) Complicated UTI (urinary tract infection): Plan: Plan of care reviewed with hospitalist team this AM. plan to complete 6 days of Levaquin 500 mg daily. Admission and Anticipated Discharge Date Admission Date: April 26, 2023 Subjective No acute events overnight. Delmi feels reasonably well this AM. Plan for discharge to rehab today reviewed. Volume status continues to improve. Edema in LUE persists but slightly better. No urinary symptoms reported at this time. No fevers or chills. Review of Systems Review of Systems: All systems reviewed & are unremarkable except as noted in HPI & below Physical Exam Constitutional: WD/WN, vitals as above no acute distress Eyes: + anicteric sclerae Neck: normal visual inspection Respiratory: normal respiratory effort; no respiratory distress Auscultation: lungs clear to auscultation bilaterally and + diminished lung sounds Cardiovascular: Rate/Rhythm: regular rate and regular rhythm Heart Sounds: normal S1 and normal S2 Extremities: + edema (b/l LE and L UE, improvement.) Musculoskeletal: Extremities: no cyanosis and no clubbing Skin: + turgor decreased; no jaundice Neurologic: no focal motor deficits Psychiatric: Orientation: alert and oriented x 3 Affect: euthymic affect Results & Data Vital Signs (Past 12 Hours) Vital Signs Temp Pulse Resp BP Pulse Ox O2 Del Method 05/03/23 07:57 36.9 C 86 19 137/78 93 Room Air 05/03/23 03:00 36.6 C 84 17 150/78 H 92 Room Air 05/02/23 23:17 36.4 C L 88 18 150/83 H 91 Room Air Laboratory Results Laboratory Results - last 24 hr 05/02/23 05/02/23 05/02/23 11:50 16:50 20:27 WBC RBC Hgb Hct MCV MCH MCHC RDW Std Deviation RDW Coeff of Lidya Plt Count Sodium Potassium Chloride Carbon Dioxide Anion Gap BUN Creatinine Est Cr Clr Drug Dosing Est GFR ( Amer) Est GFR (Non-Af Amer) BUN/Creatinine Ratio Glucose POC Glucose 124 H 97 108 H Calcium Phosphorus Albumin SARS-CoV-2, RNA, NAAT 05/03/23 05/03/23 05/03/23 05:51 05:51 07:52 WBC 6.72 RBC 3.89 L Hgb 12.4 Hct 36.7 L MCV 94.3 MCH 31.9 MCHC 33.8 RDW Std Deviation 64.7 H RDW Coeff of Lidya 19.3 H Plt Count 96 L Sodium 141 Potassium 4.3 Chloride 106 Carbon Dioxide 27 Anion Gap 8 BUN 43 H Creatinine 1.28 H Est Cr Clr Drug Dosing 44.9 Est GFR ( Amer) 47.0 Est GFR (Non-Af Amer) 40.6 BUN/Creatinine Ratio 33.6 H Glucose 91 POC Glucose 80 Calcium 9.3 Phosphorus 3.4 Albumin 3.2 L SARS-CoV-2, RNA, NAAT 05/03/23 Unknown WBC RBC Hgb Hct MCV MCH MCHC RDW Std Deviation RDW Coeff of Lidya Plt Count Sodium Potassium Chloride Carbon Dioxide Anion Gap BUN Creatinine Est Cr Clr Drug Dosing Est GFR ( Amer) Est GFR (Non-Af Amer) BUN/Creatinine Ratio Glucose POC Glucose Calcium Phosphorus Albumin SARS-CoV-2, RNA, NAAT Pending PG Care Time/CCT Total # of Minutes Spent Total Time Spent with Patient: Total time spent is greater than 50% in coordination of care (as documented) at patient's floor/unit and/or counseling patient: Coding Level of Care Code 43180 SUB INP/OBS CARE 3/50MIN Diagnoses Acute kidney injury N17.9 CHF (congestive heart failure) I50.9 Edema R60.9 History of kidney transplant Z94.0 HTN (hypertension) I10 Hypertension type: primary hypertension Complicated UTI (urinary tract infection) N39.0 (5) HTN (hypertension) Hypertension type: primary hypertension Qualified Code(s): I10 - Essential (primary) hypertension
[2023-05-03] MEDS: METOPROLOL TARTRATE 25 MG TAB PO SCH (11:13)
[2023-05-04] MEDS ORDERED: levoFLOXacin 500 MG TAB PO SCH (21:00)
== END 2023-05-03 13:04 | DRG 291 ==
LOC: ED 10:20 → 1E 12:44 → SUATTDRO 12:44 → 1E 16:05 → 4W 04-28 06:09

== ENCOUNTER 2023-06-22 13:22 | Inpatient (IN) ==
--- NOTE | 2023-06-22 15:23 | Electrocardiogram Report ---
Test Reason : Blood Pressure : / mmHG Vent. 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
[2023-06-22 15:24] LABS: Alanine Aminotransferase 6 U/L (7-52); Albumin Globulin Ratio 2.2 (0.9-2); Albumin Level 3.7 gm/dl (3.4-5.0); Alkaline Phosphatase 80 U/L (34-104); Anion Gap 8 (3-11); Aspartate Aminotransferase 21 U/L (13-39); BUN Creatinine Ratio 32.5 (10-20); Blood Urea Nitrogen 52 mg/dl (6-23); Calcium 9.5 mg/dl (8.6-10.3); Carbon Dioxide 26 mmol/L (21-32); Chloride 106 mmol/L (98-107); Est GFR (African American) 35.9 ml/min; Globulin 1.7 gm/dl (2.5-4.0); Glucose 108 mg/dl (70-99(Fasting)); Potassium 4.8 mmol/L (3.5-5.1); Sodium 140 mmol/L (136-145); Total Protein 5.4 gm/dl (6.0-8.3)
[2023-06-22 15:30] LABS: Troponin I High Sensitivity 14.8 pg/ml (0-14)
--- NOTE | 2023-06-22 15:47 | Emergency Department Note ---
Impression & Plan Hypoxia, Hypervolemia, Wound of right lower extremity, CKD (chronic kidney disease), Atrial fibrillation, Bilateral leg edema, Leg wound, right ED Provider Note NAME: ROXANNE CHANDLER AGE: 77 SEX: F ARRIVES VIA: Walk-In INFORMANT: Patient ED PROVIDER(S): Miguel Jacobs MD CHIEF COMPLAINT: Edema, shortness of breath, referred. PLAN: Disposition: Admit MEDICAL DECISION MAKING: The patient is a pleasant 77-year-old woman with a past medical history of diabetic CKD with history of renal transplant 1995, type 2 diabetes, atrial fibrillation, hypothyroidism, hyperlipidemia, gout, hyperparathyroidism who presents to the emergency department via walk-in, referred by her PCPs office for worsening fluid retention and weight gain with dyspnea with minimal exertion and low O2 saturation in the mid to upper 80s on room air. The patient acknowledges she has been gaining weight and retaining fluid for some time despite taking her medications. She denies any fevers, cough, congestion, GI or symptoms. She understands that she may have gained up to 50 pounds since November. Of note, the patient did arrive to emergency department during time of high volume, acuity and prolonged emergency department waiting times. Critical pathways initiated from triage. On my evaluation, the patient is in no acute distress, afebrile with O2 saturation 85% on room air and vital signs otherwise stable. O2 saturation improving to low-mid 90s on 2 L nasal cannula. She appears hypervolemic with diminished breath sounds of bilateral mid to lower lung daly. She has 2+ bilateral lower extremity edema with moderate erythema and superficial excoriation of the right anterior lower leg without tenderness or crepitus. EKG without overt acute ischemia. Chest x-ray demonstrates congestive failure with pleural effusions and pulmonary edema bilaterally. WBC, H/H within normal limits. Platelets 96k nonspecific and similar to prior. Chemistry without metabolic acidosis. Creatinine 1.6, similar to prior values. LFTs without significant abnormality. High-sensitivity troponin 14.8, nonspecific. BMP 840, similar to prior. Given the patient's refractory hypervolemia despite her home medications of 40 mg of torsemide twice daily she agrees with plan for admission for further management as recommended by her PCP office. Treatment initiated with 80 mg of IV Lasix. Case was discussed with Dr. Avilez, admitting resident, with Dr. Murray, [facility] hospitalist who will evaluate the patient for admission. Triage Nursing notes reviewed and agree them. Prior/outside medical records reviewed Vital Signs: reviewed Differential diagnosis: Reactive airway disease, pneumonia, pneumothorax, COPD, CHF, infections, cardiac ischemia, pulmonary embolism, musculoskeletal, gastrointestinal, as well as other pathologies. ER treatment provided: See below. Diagnostics interpreted by me: ECG: Atrial fibrillation, 68 bpm, no ectopy, no overt ST elevation or depression, QTc 440, QRS 76. Cardiac Monitoring: An order for continuous cardiac monitoring was placed and demonstrated atrial fibrillation, 68 bpm, no ectopy. Laboratory studies: See below Imaging studies: See below Consultation(s): Case was discussed with Dr. Avilez, admitting resident, with Dr. Murray, [facility] hospitalist who will evaluate the patient for admission. HPI: The patient is a pleasant 77-year-old woman with a past medical history of diabetic CKD with history of renal transplant 1995, type 2 diabetes, atrial fibrillation, hypothyroidism, hyperlipidemia, gout, hyperparathyroidism who presents to the emergency department via walk-in, referred by her PCPs office for worsening fluid retention and weight gain with dyspnea with minimal exertion and low O2 saturation in the mid to upper 80s on room air. The patient acknowledges she has been gaining weight and retaining fluid for some time despi te taking her medications. She denies any fevers, cough, congestion, GI or symptoms. She understands that she may have gained up to 50 pounds since November. ROS: See above HPI for pertinent positives & negatives. A total of 10 systems reviewed and were otherwise negative. VITALS:See Below PHYSICAL EXAMINATION: GENERAL: Awake, alert, mildly dyspneic-appearing, in no distress, BMI 42.9. HENT: Normocephalic, atraumatic. Oropharynx unremarkable. EYES: Normal conjunctiva. Sclera non-icteric. NECK: Supple. No nuchal rigidity. FROM. No JVD. RESPIRATORY: Diminished breath sounds of the mid to lower lung daly bilate rally. CARDIAC: Regular rate, normal rhythm. Extremities warm and well perfused. Pulses equal. ABDOMEN: Soft, non-distended. No tenderness to palpation. No rebound or guarding. No masses. RECTAL: Deferred. MUSCULOSKELETAL: Chest examination reveals no tenderness. The back is symmetrical on inspection without obvious abnormality. There is no CVA tenderness to palpation. No joint edema. LOWER EXTREMITIES: Calves are equal size bilaterally and non-tender. But with 2+ bilateral lower extremity edema with moderate erythema and superficial excoriation of the right anterior lower leg without tenderness or crepitus. NEURO: Normal sensorium. No sensory or motor deficits noted. SKIN: No rash or jaundice noted. Miguel Jacobs MD Past Med/Surg History Medical History Acute kidney injury Atrial fibrillation DX 2014 > NO CARDIOVERSIONS Atrial fibrillation with RVR Bilateral leg edema Diabetic peripheral neuropathy associated with type 2 diabetes mellitus Elevated troponin Gastric ulcer RESOLVED History of dysplastic nevus HTN (hypertension) Hypercholesteremia Hyperparathyroidism Hypothyroidism Long-term current use of tacrolimus Macular degeneration BILAT Mitral regurgitation Osteoporosis Paroxysmal atrial fibrillation Personal history of diabetic foot ulcer Polycystic kidney disease HX > DR. ROCK > NANCY HANDY > DR[facility] 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 History of tonsillectomy Hx of cholecystectomy Kidney transplant recipient RIGHT > 1995 Family History Mother Diabetes Father Kidney disease Hypertension Son Kidney disease Sister Kidney disease Aunt Breast cancer Denies family history of Ovarian cancer Prostate cancer Myocardial infarction Colorectal cancer Social History Smoking Status: Never smoker Tobacco Type: Cigarettes Second Hand Exposure: No; Do You Dip or Chew Tobacco: No; Hx Alcohol Use: No Hx Substance Use: No Preferred Language: Brazilian Communication Ability: Effective Visual Impairment: No Limitations Run Lead Required: No Beliefs That Will Affect Care: None marital status: Current Living Situation: Spouse Current Living Situation Comment: Lives at home with current occupational status: retired Other Information That Helps Us Care for You: No Feels Safe at Home: Yes Safety Concerns: Feels Safe At This Time Diet: low salt Dental Care, Regularly: Yes Physical Activity Frequency: Does not Exercise Seatbelt Use: always Sunscreen Use: Yes Assistive Devices: Glasses and Walker Allergies Allergies Allergy/AdvReac Type Severity Reaction Status Date / Time adhesive Allergy Intermediate ERYTHEMA Verified 06/22/23 16:30 WITH ADHESIVE TAPE, blisters Home Meds Home Medications Medication Instructions Recorded Confirmed multivitamin 1 tab PO QAM ##0 05/23/06 06/22/23 omega 1-ysc-ipc-fish oil 1,000 mg 1,000 mg PO BID ##0 10/30/10 06/22/23 (120 mg-180 mg) capsule (Fish Oil) folic acid 1 mg tablet 1 mg PO QAM ##0 05/07/12 06/22/23 lutein 20 mg capsule 20 mg PO QPM ##0 11/11/14 06/22/23 lancets 33 gauge (OneTouch Delica #100 ea 06/15/19 06/22/23 Plus Lancet) tacrolimus 0.5 mg capsule, 0.5 mg PO Q12 08/28/19 06/22/23 immediate-release mycophenolate mofetil 250 mg 250 mg PO Q12 10/15/20 06/22/23 capsule fexofenadine 180 mg tablet 180 mg PO DAILY PRN Allergy 05/14/22 06/22/23 (Mariya Allergy) Symptoms acetaminophen 650 mg 650 mg PO Q4H PRN Pain 06/22/23 06/22/23 tablet,extended release albuterol sulfate 90 mcg/actuation 1 inh inhalation QID 06/22/23 06/22/23 aerosol inhaler denosumab 60 mg/mL subcutaneous 60 mg subcut DIRECTED 06/22/23 06/22/23 syringe [id number] 250 mg-dha 90 1 cap PO BID 06/22/23 06/22/23 mg-epa 160 [id number] capsule (Ocuvite Adult 50 Plus) Previous Rx's Medication Instructions Recorded simvastatin 20 mg tablet 20 mg PO HS #90 tabs 07/06/22 diltiazem HCl 180 mg 180 mg PO QAM #90 caps 07/30/22 capsule,extended release 24 hr lisinopril 20 mg tablet 20 mg PO HS #90 tabs 07/30/22 pen needle, diabetic 32 gauge x #100 ea 08/17/22" (BD Ultra-Fine [place] Pen Needle) insulin glargine 100 unit/mL (3 5 unit (0.05 mL) subcut QAM #15 mL 11/30/22 mL) subcutaneous pen (Lantus Solostar U-100 Insulin) allopurinol 300 mg tablet 300 mg PO DAILY #90 tabs 12/28/22 famotidine 20 mg tablet 20 mg PO BID #60 tabs 01/25/23 blood sugar diagnostic #100 ea 03/15/23 apixaban 5 mg tablet (Eliquis) 5 mg PO BID #180 tabs 04/29/23 metoprolol tartrate 25 mg tablet 37.5 mg PO BID #60 tabs 05/03/23 levothyroxine 100 mcg tablet 100 mcg PO DAILYBB #60 tabs 06/08/23 torsemide 20 mg tablet 40 mg PO BID #120 tabs 06/08/23 magnesium oxide 400 mg (241.3 mg 400 mg PO BID #180 tabs 06/16/23 magnesium) tablet Results & Data (ED) Vital Signs Vital Signs - 24 hr 06/22/23 13:36 06/22/23 15:49 06/22/23 16:25 Temperature 36.4 C L Temperature Source Temporal Artery Scan Pulse Rate 76 64 Pulse Rate from SpO2 Sensor Pulse Rhythm Regular Pulse Strength Normal Respiratory Rate 22 Respiratory Effort / Characteristics Non-Labored Spontaneous Respiratory Depth Normal Respiratory Pattern Regular Blood Pressure 148/65 H Blood Pressure Mean 92 Blood Pressure Position Sitting Pulse Oximetry 100 85 L Oxygen Delivery Method Room Air Room Air Nasal Cannula Sepsis Recent Fever Within 48 Hours No Sepsis New/Unexplained Change in Mental Status No Sepsis Action Taken by Nursing No Action Required Oxygen Flow Rate - Titration 2 Pulse Oximetry Post Tiitration 95 06/22/23 16:00 06/22/23 16:00 06/22/23 16:30 Temperature Temperature Source Pulse Rate 61 Pulse Rate from SpO2 Sensor 64 Pulse Rhythm Pulse Strength Respiratory Rate 19 Respiratory Effort / Characteristics Respiratory Depth Respiratory Pattern Blood Pressure 133/70 146/67 H Blood Pressure Mean 91 81 Blood Pressure Position Pulse Oximetry 97 Oxygen Delivery Method Sepsis Recent Fever Within 48 Hours Sepsis New/Unexplained Change in Mental Status Sepsis Action Taken by Nursing Oxygen Flow Rate - Titration Pulse Oximetry Post Tiitration 06/22/23 16:30 06/22/23 17:30 06/22/23 17:30 Temperature Temperature Source Pulse Rate 64 64 Pulse Rate from SpO2 Sensor 65 65 Pulse Rhythm Pulse Strength Respiratory Rate 18 17 Respiratory Effort / Characteristics Respiratory Depth Respiratory Pattern Blood Pressure 144/74 H Blood Pressure Mean 112 Blood Pressure Position Pulse Oximetry 96 97 Oxygen Delivery Method Sepsis Recent Fever Within 48 Hours Sepsis New/Unexplained Change in Mental Status Sepsis Action Taken by Nursing Oxygen Flow Rate - Titration Pulse Oximetry Post Tiitration 06/22/23 18:00 06/22/23 18:00 Temperature Temperature Source Pulse Rate 63 Pulse Rate from SpO2 Sensor 64 Pulse Rhythm Pulse Strength Respiratory Rate 19 Respiratory Effort / Characteristics Respiratory Depth Respiratory Pattern Blood Pressure 134/76 Blood Pressure Mean 96 Blood Pressure Position Pulse Oximetry 95 Oxygen Delivery Method Sepsis Recent Fever Within 48 Hours Sepsis New/Unexplained Change in Mental Status Sepsis Action Taken by Nursing Oxygen Flow Rate - Titration Pulse Oximetry Post Tiitration Laboratory Data Attestation: I reviewed the patient's lab results. 06/22/23 14:45 06/22/23 14:45 Lab Results 06/22/23 06/22/23 06/22/23 Range/Units 14:45 14:45 14:45 WBC 7.44 (4.8-10.8) K/ul RBC 4.48 (4.20-5.40) M/uL Hgb 14.2 (12.0-16.0) g/dl Hct 42.6 (37.0-47.0) % MCV 95.1 (80.0-100.0) fL MCH 31.7 (25.0-34.0) pg MCHC 33.3 (32.0-36.0) g/dL RDW Std Deviation 73.8 H (36.4-46.3) fL RDW Coeff of Lidya 21.5 H (11.5-14.5) % Plt Count 96 L (130-400) K/uL Immature Gran % (Auto) 0.3 % Neut % (Auto) 73.9 % Lymph % (Auto) 11.8 % [place] % (Auto) 8.2 % Eos % (Auto) 4.7 % Baso % (Auto) 1.1 % Neut # (Auto) 5.50 (1.40-6.50) K/uL Lymph # (Auto) 0.88 L (1.2-3.4) K/uL [place] # (Auto) 0.61 H (0.11-0.59) K/uL Eos # (Auto) 0.35 (0-0.50) K/uL Baso # (Auto) 0.08 (0-0.2) K/uL Immature Gran # (Auto) 0.02 (0.01-0.20) K/uL Platelet Estimate Decreased L (Normal) Ovalocytes 1+ Acanthocytes (Spur) 1+ Schistocytes 1+ PT 15.9 H (9.0-12.0) Seconds INR 1.5 H (0.9-1.1) APTT 39.6 H (21.0-31.0) Seconds PTT Ratio 1.4 Sodium 140 (136-145) mmol/L Potassium 4.8 (3.5-5.1) mmol/L Chloride 106 (98-107) mmol/L Carbon Dioxide 26 (21-32) mmol/L Anion Gap 8 (3-11) BUN 52 H (6-23) mg/dl Creatinine 1.60 H (0.6-1.2) mg/dl Est Cr Clr Drug Dosing Not Reportable Est GFR ( Amer) 35.9 ml/min Est GFR (Non-Af Amer) 31.0 ml/min BUN/Creatinine Ratio 32.5 H (10-20) Glucose 108 H (70-99(Fasting)) mg/dl Calcium 9.5 (8.6-10.3) mg/dl Total Bilirubin 1.0 (0.2-1.0) mg/dl AST 21 (13-39) U/L ALT 6 L (7-52) U/L Alkaline Phosphatase 80 (34-104) U/L Troponin I High Sens 14.8 H (0-14) pg/ml B-Natriuretic Peptide (0-100) pg/ml Total Protein 5.4 L (6.0-8.3) gm/dl Albumin 3.7 (3.4-5.0) gm/dl Globulin 1.7 L (2.5-4.0) gm/dl Albumin/Globulin Ratio 2.2 H (0.9-2) Urine Color Urine Appearance (Clear) Urine pH (4.5-7.5) Ur Specific [place] (1.000-1.030) Urine Protein (Negative) Urine Glucose (UA) (Negative) Urine Ketones (Negative) Urine Blood (Negative) Urine Nitrite (Negative) Urine Bilirubin (Negative) Urine Urobilinogen (Negative) Ur Leukocyte Esterase (Negative) Urine WBC (Auto) (0-5) /hpf Urine RBC (Auto) (0-4) /hpf U Hyaline Cast (Auto) (0-5) /lpf U Epithel Cells (Auto) (0-5) /lpf Urine Bacteria (Auto) (Negative) Urine Yeast 06/22/23 06/22/23 Range/Units 14:45 17:40 WBC (4.8-10.8) K/ul RBC (4.20-5.40) M/uL Hgb (12.0-16.0) g/dl Hct (37.0-47.0) % MCV (80.0-100.0) fL MCH (25.0-34.0) pg MCHC (32.0-36.0) g/dL RDW Std Deviation (36.4-46.3) fL RDW Coeff of Lidya (11.5-14.5) % Plt Count (130-400) K/uL Immature Gran % (Auto) % Neut % (Auto) % Lymph % (Auto) % [place] % (Auto) % Eos % (Auto) % Baso % (Auto) % Neut # (Auto) (1.40-6.50) K/uL Lymph # (Auto) (1.2-3.4) K/uL [place] # (Auto) (0.11-0.59) K/uL Eos # (Auto) (0-0.50) K/uL Baso # (Auto) (0-0.2) K/uL Immature Gran # (Auto) (0.01-0.20) K/uL Platelet Estimate (Normal) Ovalocytes Acanthocytes (Spur) Schistocytes PT (9.0-12.0) Seconds INR (0.9-1.1) APTT (21.0-31.0) Seconds PTT Ratio Sodium (136-145) mmol/L Potassium (3.5-5.1) mmol/L Chloride (98-107) mmol/L Carbon Dioxide (21-32) mmol/L Anion Gap (3-11) BUN (6-23) mg/dl Creatinine (0.6-1.2) mg/dl Est Cr Clr Drug Dosing Est GFR ( Amer) ml/min Est GFR (Non-Af Amer) ml/min BUN/Creatinine Ratio (10-20) Glucose (70-99(Fasting)) mg/dl Calcium (8.6-10.3) mg/dl Total Bilirubin (0.2-1.0) mg/dl AST (13-39) U/L ALT (7-52) U/L Alkaline Phosphatase (34-104) U/L Troponin I High Sens (0-14) pg/ml B-Natriuretic Peptide 844 H (0-100) pg/ml Total Protein (6.0-8.3) gm/dl Albumin (3.4-5.0) gm/dl Globulin (2.5-4.0) gm/dl Albumin/Globulin Ratio (0.9-2) Urine Color Dark Yellow Urine Appearance Clear (Clear) Urine pH 5.5 (4.5-7.5) Ur Specific [place] 1.013 (1.000-1.030) Urine Protein 3+ H (Negative) Urine Glucose (UA) Negative (Negative) Urine Ketones Negative (Negative) Urine Blood 3+ H (Negative) Urine Nitrite Negative (Negative) Urine Bilirubin Negative (Negative) Urine Urobilinogen Negative (Negative) Ur Leukocyte Esterase Negative (Negative) Urine WBC (Auto) 10-30 H (0-5) /hpf Urine RBC (Auto) >30 H (0-4) /hpf U Hyaline Cast (Auto) 5-10 H (0-5) /lpf U Epithel Cells (Auto) 10-20 H (0-5) /lpf Urine Bacteria (Auto) Negative (Negative) Urine Yeast Not Reportable Administered Medications Albuterol (Albuterol Hfa 8 Gm Inhaler) 1 puffs INH QID KARIN Stop: 07/22/23 21:31 Last Admin: 06/22/23 21:56 Dose: Not Given Documented By: KORY Apixaban (Apixaban 5 Mg Tablet) 5 mg PO BID KARIN Stop: 07/22/23 21:31 Last Admin: 06/22/23 22:19 Dose: 5 mg Documented By: KORY Famotidine (Famotidine 20 Mg Tab) 20 mg PO BID KARIN Stop: 07/22/23 21:31 Last Admin: 06/22/23 22:19 Dose: 20 mg Documented By: KORY Fish Oil ([place]-3 (Purified Fish Oil) 1 Gm Cap) 1 gm PO BID KARIN Stop: 07/22/23 21:31 Last Admin: 06/22/23 22:19 Dose: 1 gm Documented By: KORY Furosemide (Furosemide 40 Mg/4 Ml Vial) 80 mg IV BID17 KARIN Stop: 07/22/23 21:44 Last Admin: 06/22/23 22:19 Dose: 80 mg Documented By: KORY Insulin Aspart (Insulin Aspart Per Unit Charge) 0 units SC ACHS KARIN Stop: 07/22/23 21:31 Last Admin: 06/22/23 21:41 Dose: Not Given Documented By: KORY Insulin Glargine (Lantus Per Unit Charge) 11 units SQ BID KARIN Stop: 07/22/23 21:31 Last Admin: 06/22/23 22:18 Dose: 11 units Documented By: KORY Co-signed By: DANIELA Magnesium Oxide (Magnesium Oxide 400 Mg Tab) 400 mg PO BID KARIN Stop: 07/22/23 21:31 Last Admin: 06/22/23 22:19 Dose: 400 mg Documented By: KORY Metoprolol Tartrate (Metoprolol Tartrate 25 Mg Tab) 37.5 mg PO BID KARIN Stop: 07/22/23 21:31 Last Admin: 06/22/23 22:09 Dose: Not Given Documented By: KORY Mycophenolate Mofetil (Mycophenolate Mofetil 250 Mg Cap) 250 mg PO Q12 KARIN Stop: 07/22/23 21:31 Last Admin: 06/22/23 22:19 Dose: 250 mg Documented By: KORY Simvastatin (Simvastatin 20 Mg Tab) 20 mg PO HS KARIN Stop: 07/22/23 21:31 Last Admin: 06/22/23 22:19 Dose: 20 mg Documented By: KORY Tacrolimus (Tacrolimus 0.5 Mg Cap) 0.5 mg PO Q12 KARIN Stop: 07/22/23 21:31 Last Admin: 06/22/23 22:19 Dose: 0.5 mg Documented By: KORY Discontinued Medications Furosemide (Furosemide 40 Mg/4 Ml Vial) 80 mg IV NOW STA Stop: 06/22/23 17:05 Last Admin: 06/22/23 17:44 Dose: 80 mg Documented By: LEON Imaging Data Radiologist's Impression: Chest X-Ray 06/22/23 13:39 XR chest 1V not portable HISTORY: 77 years-old Female Chest pain, nonspecific COMPARISON: 05/02/2023 TECHNIQUE: AP view of the chest FINDINGS: Cardiac silhouette is enlarged. Layering pleural effusions with bibasilar consolidation. Pulmonary vascular congestion with interstitial coarsening. No pneumothorax. Bones appear grossly intact. IMPRESSION: 1. Cardiomegaly with pulmonary edema. 2. Layering pleural effusions with bibasilar consolidation, similar to prior. ACT 112: Negative or not required by law. The above report was generated using voice recognition software. It may contain grammatical, syntax or spelling errors. Electronically signed by: Clemente Bear M.D. 06/22/2023 4:33 PM Discharge Plan Visit Data Chief Complaint: Shortness of Breath/Dyspnea Stated Complaint: REF BY DOC; SHORTNESS OF BREATH ED Provider: Miguel Jacobs Discharge Problem: Hypoxia, Hypervolemia, Wound of right lower extremity, CKD (chronic kidney di sease), Atrial fibrillation, Bilateral leg edema, Leg wound, right Patient Disposition: Admitted As Inpatient Discharge Instructions Interventions: ED Discharge Assessment Last Done: 06/22/23 20:24
[2023-06-22 15:51] LABS: INR 1.5 (0.9-1.1); Partial Thromboplastin Ratio 1.4; Partial Thromboplastin Time 39.6 Seconds (21.0-31.0); Prothrombin Time 15.9 Seconds (9.0-12.0)
[2023-06-22 16:26] LABS: Acanthocytes 1+; Basophils # (auto) 0.08 K/uL (0-0.2); Basophils % (auto) 1.1 %; Eosinophils # (auto) 0.35 K/uL (0-0.50); Eosinophils % (auto) 4.7 %; Hematocrit (blood only) 42.6 % (37.0-47.0); Hemoglobin 14.2 g/dl (12.0-16.0); Immature Granulocytes # (auto) 0.02 K/uL (0.01-0.20); Immature Granulocytes % (auto) 0.3 %; Lymphocytes # (auto) 0.88 K/uL (1.2-3.4); Lymphocytes % (auto) 11.8 %; Mean Corpuscular Hemoglobin 31.7 pg (25.0-34.0); Mean Corpuscular Hgb Conc 33.3 g/dL (32.0-36.0); Mean Corpuscular Volume 95.1 fL (80.0-100.0); Monocytes # (auto) 0.61 K/uL (0.11-0.59); Monocytes % (auto) 8.2 %; Neutrophils % (auto) 73.9 %; Ovalocytes 1+; Platelet Count 96 K/uL (130-400); Platelet Estimate Decreased (Normal); RDW Coefficient of Variation 21.5 % (11.5-14.5); RDW Standard Deviation 73.8 fL (36.4-46.3); Red Blood Count 4.48 M/uL (4.20-5.40); Schistocytes 1+; White Blood Count 7.44 K/ul (4.8-10.8)
--- NOTE | 2023-06-22 16:34 | XRay Report ---
XR chest 1V not portable HISTORY: 77 years-old Female Chest pain, nonspecific COMPARISON: 05/02/2023 TECHNIQUE: AP view of the chest FINDINGS: Cardiac silhouette is enlarged. Layering pleural effusions with bibasilar consolidation. Pulmonary va scular congestion with interstitial coarsening. No pneumothorax. Bones appear grossly intact. IMPRESSION: 1. Cardiomegaly with pulmonary edema. 2. Layering pleural effusions with bibasilar consolidation, similar to prior. ACT 112: Negative or not required by law. The above report was generated using voice recognition software. It may contain grammatical, syntax o r spelling errors. Electronically signed by: Clemente Bear M.D. 06/22/2023 4:33 PM
[2023-06-22] MEDS ORDERED: FUROSEMIDE 40 MG/4 ML VIAL IV STA (17:04)
[2023-06-22 17:56] LABS: Appearance Urine Clear (Clear); Bacteria Urine Automated Negative (Negative); Bilirubin Urine Negative (Negative); Blood Urine 3+ (Negative); Color Urine Dark Yellow; Glucose Urine UA Negative (Negative); Ketones Urine Negative (Negative); Leukocyte Esterase Urine Negative (Negative); Nitrite Urine Negative (Negative); Protein Urine 3+ (Negative); Specific Gravity Urine 1.013 (1.000-1.030); Urobilinogen Urine Negative (Negative); pH Urine 5.5 (4.5-7.5)
[2023-06-22 18:10] LABS: RBC Urine Automated >30 /hpf (0-4)
--- NOTE | 2023-06-22 18:18 | History & Physical Report ---
Date of Service June 22, 2023 Assessment & Plan (1) Hypervolemia associated with renal insufficiency: Plan: Patient is a 68-year-old female who presents to the the hospital with hyperlipidemia associated with renal insufficiency as well as congestive heart failure. 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 Patient is hypervolemic on physical exam and has worsening kidney function on labs. Patient with hyperkalemia secondary to renal insufficiency. Patient's creatinine was 1.6 at time of admission. Patient has been taking her diuretics routinely every day but despite this has been significantly fluid overloaded. Most likely patient is retaining fluid due to worsening of renal status. Patient with significant protein and blood in the urine. Urine and blood cultures pending. We will start on Lasix IV 80 mg twice daily and reassess volume status routinely. Nephrology consulted, appreciate recommendations (2) Acute exacerbation of CHF (congestive heart failure): Plan: Echo done on 04/26/2023 showed an EF of 60 to 65% Was previously on furosemide 80 mg twice daily switch to torsemide 40 mg twice daily back on 06/08. We will start on Lasix IV 80 mg twice daily. We will continue to monitor fluid status in setting of worsening renal function. (3) Wound of right lower extremity: Plan: Wound on the right lower extremity most likely We will order CRP, ESR, Pro-Sanjeev in the morning. High risk of wound turning into cellulitis if patient remains hypervolemic. We will order blood cultures at this time in case antibiotics are started in the near future. (4) CKD (chronic kidney disease): Plan: Status post renal transplant follows with nephrology as an outpatient. 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 (5) Atrial fibrillation with rapid ventricular response: Plan: Continue Eliquis and diltiazem. We will hold lisinopril given worsening renal function May consider switching Eliquis if renal function continues to deteriorate (6) Diabetes mellitus type II, controlled: Plan: HbA1c ordered in the a.m. Patient's home regimen held on admission Continue BSG checks, sliding-scale insulin, hypoglycemic protocol (7) Monoclonal gammopathy: Plan: Follows with the cancer center and Dr. Perera. Saw nephrology on 05/19/2023 with concerns of proteinuria and chronic mild hypoalbuminemia. Discussion of possibly renal biopsy for definitive diagnosis in the near future if problems continue. We will continue to monitor while admitted to the hospital and refer to nephrol cate. (8) Polycystic kidney disease: Plan: In reviewing previous nephrology note, stated that imaging may be needed if patient's hyperkalemia continues while on diuretics. Renal ultrasound transplant with Doppler ordered. (9) Kidney transplant recipient: Plan: On tacrolimus and mycophenolate mofetil. Continue at this time. We will get morning mycophenolic acid and tacrolimus levels. (10) Gout: Plan: Continue allopurinol 300 mg once a day (11) HLD (hyperlipidemia): Plan: We will continue simvastatin 20 mg once a day. (12) Hypothyroidism: Plan: Continue levothyroxine 100 mcg daily. Plan Fluids: None Nutrition: Heart healthy, type II diabetic, low-sodium Code status: full code DVT ppx: Eliquis Consults: Nephrology PT/OT: Yes Case management: No Dispo: PCU/telemetry Thank you for allowing me to participate in the care of your patient. -Dr. Vinny Avilez PGY2 History of Present Illness Chief Complaint: Acute on chronic congestive heart failure Primary Care Provider: Jennifer Crum MD Patient is 77-year-old woman with a past medical history of diabetic CKD with history of renal transplant 1995, type 2 diabetes, atrial fibrillation, hypothyroidism, hyperlipidemia, gout, hyperparathyroidism who presents to the hospital with worsening fluid retention, weight gain, and shortness of breath for the last 2 weeks as well as orthopnea. Was seen by his PCP today and was instructed to go to the emergency room due to these ongoing issues and being borderline hypoxic in the office. Patient has been taking all of her medications. Was recently switched from furosemide 80 mg to torsemide 40 mg 2 weeks prior. She denies any fever, chills, nausea, vomiting, or abdominal pain. Patient states that she also has a wound on her right leg that has been getting worse over this past 2 weeks. In the ED: X-ray showed cardiomegaly with pulmonary edema, as well as layering pleural effusion with bibasilar consolidation. Creatinine of 1.60 and BUN of 52. Troponin 14.8, BNP of 844, UA showed 3+ protein and 3+ blood, EKG showed A- fib, hypoxic in the ED and requiring 2.5 L nasal cannula. Allergies Allergy/AdvReac Type Severity Reaction Status Date / Time adhesive Allergy Intermediate ERYTHEMA Verified 06/22/23 16:30 WITH ADHESIVE TAPE, blisters Home Medications Medication Instructions Recorded Confirmed Type multivitamin 1 tab PO QAM ##0 05/23/06 06/22/23 History omega 0-bss-tvw-fish oil 1,000 mg 1,000 mg PO BID ##0 10/30/10 06/22/23 History (120 mg-180 mg) capsule (Fish Oil) folic acid 1 mg tablet 1 mg PO QAM ##0 05/07/12 06/22/23 History lutein 20 mg capsule 20 mg PO QPM ##0 11/11/14 06/22/23 History lancets 33 gauge (OneTouch Delica #100 ea 06/15/19 06/22/23 History Plus Lancet) tacrolimus 0.5 mg capsule, 0.5 mg PO Q12 08/28/19 06/22/23 History immediate-release mycophenolate mofetil 250 mg 250 mg PO Q12 10/15/20 06/22/23 History capsule fexofenadine 180 mg tablet 180 mg PO DAILY PRN Allergy 05/14/22 06/22/23 History (Mariya Allergy) Symptoms simvastatin 20 mg tablet 20 mg PO HS #90 tabs 07/06/22 06/22/23 Rx diltiazem HCl 180 mg 180 mg PO QAM #90 caps 07/30/22 06/22/23 Rx capsule,extended release 24 hr lisinopril 20 mg tablet 20 mg PO HS #90 tabs 07/30/22 06/22/23 Rx pen needle, diabetic 32 gauge x #100 ea 08/17/22 06/22/23 Rx 5/32" (BD Ultra-Fine Germania Pen Needle) insulin glargine 100 unit/mL (3 5 unit (0.05 mL) subcut QAM #15 mL 11/30/22 06/22/23 Rx mL) subcutaneous pen (Lantus Solostar U-100 Insulin) allopurinol 300 mg tablet 300 mg PO DAILY #90 tabs 12/28/22 06/22/23 Rx famotidine 20 mg tablet 20 mg PO BID #60 tabs 01/25/23 06/22/23 Rx blood sugar diagnostic #100 ea 03/15/23 06/22/23 Rx apixaban 5 mg tablet (Eliquis) 5 mg PO BID #180 tabs 04/29/23 06/22/23 Rx metoprolol tartrate 25 mg tablet 37.5 mg PO BID #60 tabs 05/03/23 06/22/23 Rx levothyroxine 100 mcg tablet 100 mcg PO DAILYBB #60 tabs 06/08/23 06/22/23 Rx torsemide 20 mg tablet 40 mg PO BID #120 tabs 06/08/23 06/22/23 Rx magnesium oxide 400 mg (241.3 mg 400 mg PO BID #180 tabs 06/16/23 06/22/23 Rx magnesium) tablet acetaminophen 650 mg 650 mg PO Q4H PRN Pain 06/22/23 06/22/23 History tablet,extended release albuterol sulfate 90 mcg/actuation 1 inh inhalation QID 06/22/23 06/22/23 History aerosol inhaler denosumab 60 mg/mL subcutaneous 60 mg subcut DIRECTED 06/22/23 06/22/23 History syringe [id number] 250 mg-dha 90 1 cap PO BID 06/22/23 06/22/23 History mg-epa 160 nb-dtxi-bltv-zeax capsule (Ocuvite Adult 50 Plus) Past Med/Surg History Medical History Acute kidney injury Atrial fibrillation DX 2013 > NO CARDIOVERSIONS Atrial fibrillation with RVR Bilateral leg edema Diabetic peripheral neuropathy associated with type 2 diabetes mellitus Elevated troponin Gastric ulcer RESOLVED History of dysplastic nevus HTN (hypertension) Hypercholesteremia Hyperparathyroidism Hypothyroidism Long-term current use of tacrolimus Macular degeneration BILAT Mitral regurgitation Osteoporosis Paroxysmal atrial fibrillation Personal history of diabetic foot ulcer Polycystic kidney disease HX > DR. ROCK > N[facility]Y HANDY > [facility] SU[facility]Z [facility] Proliferative glomerulonephritis with nephrotic syndrome Thrombocytopenia Surgical History History of hysterectomy History of renal transplant (07/02/11) History of squamous cell carcinoma in situ of skin WITH REMOVAL TO HEAD History of tonsillectomy Hx of cholecystectomy Kidney transplant recipient RIGHT > 1995 Family History Mother Diabetes Father Kidney disease Hypertension Son Kidney disease Sister Kidney disease Aunt Breast cancer Denies family history of Ovarian cancer Prostate cancer Myocardial infarction Colorectal cancer Social History Smoking Status: Never smoker Tobacco Type: Cigarettes Second Hand Exposure: No; Do You Dip or Chew Tobacco: No; Hx Alcohol Use: No Hx Substance Use: No Preferred Language: Swedish Communication Ability: Effective Visual Impairment: No Limitations Insurance Claims Clerk Required: No Beliefs That Will Affect Care: None marital status: Current Living Situation: Spouse Current Living Situation Comment: Lives at home with current occupational status: retired Other Information That Helps Us Care for You: No Feels Safe at Home: Yes Safety Concerns: Feels Safe At This Time Diet: low salt Dental Care, Regularly: Yes Physical Activity Frequency: Does not Exercise Seatbelt Use: always Sunscreen Use: Yes Assistive Devices: Glasses and Walker Review of Systems Review of Systems: All systems reviewed & are unremarkable except as noted in Subjective Physical Exam Physical Exam: Constitutional: well-appearing, no acute distress HEENT: NCAT, no conjunctival injection CV: irregularity irregular rate and rhythm, no murmur appreciated, extremities well-perfused, bilateral lower extremity pitting edema Resp: Rales and diminished breath sounds bilaterally lower lobes GI: soft, nondistended, nontender, BS normoactive MSK: no gross deformities appreciated Skin: Erythematous seeping wound on the right lower extremity extending from the lateral aspect of the knee to the lateral ankle Neuro: alert, oriented, no focal neurologic deficit appreciated Results & Data Results & Data Vital Signs (Past 12 Hours) Vital Signs Temp Pulse Resp BP Pulse Ox O2 Del Method 06/22/23 16:30 64 18 96 06/22/23 16:30 146/67 H 06/22/23 16:00 61 19 97 06/22/23 16:00 133/70 06/22/23 16:25 64 06/22/23 15:49 85 L Room Air, Nasal Cannula 06/22/23 13:36 36.4 C L 76 22 148/65 H 100 Room Air Supervising Physician Co-Signing Physician Notes I personally saw and examined the patient. I verified all lloyd points and agree with resident physician Dr Vinny Avilez, with the following exceptions and/or additions: 77 year old renal transplant patient presents to the ER with weight gain, swelling and shortness of breath. Referred by her PCP. Significant nephrotic range proteinuria since at least 2018. Similar admission in April which resolved with IV Lasix 80mg IV BID. O/E A&Ox3, HS irregular rhythm, regular rate, no murmurs, Chest bibasal crackles, clear anteriorly, generalized anasarca on abdomen and pitting edema 3+ in all 4 extremities L > R, especially in upper extremity where she has her AV fistula. Open stage 2 venous ulcers from knee to ankle RLE without significant surrounding erythema or warmth to suggest cellulitis. A/P Hypervolemia due to renal insufficiency - no significant cardiac issue although she does have some pulmonary hypertension possible due to untreated MARIA ESTHER pending outpatient sleep study and mitral regurgitation the primary problem if her kidneys with nephrotic range proteinuria. Lasix 80mg IV BID appeared to work last admission therefore will start off with the same dosing. Unclear if failure due to switching furosemide to torsemide as outpatient vs. worsening intrinsic failure of her transplant - will consult nephrology to decide regarding need for renal biopsy. Transplant renal US ordered as no imaging since February. Strict I&Os, Daily weights. Low Na diet. Consult nephrology for ongoing management. RLE stage 2 venous ulcers - secondary to pedal edema, consult wound care nurse. Do not current suspect cellulitis however prime for infection. Should improve with diuresis. Inflammatory markers order in case need to trend. Resident Activity Tracking Resident Involvement: Resident Care Provided Care Provided: Adult Hospital Medicine (2) Acute exacerbation of CHF (congestive heart failure) Heart failure type: unspecified Qualified Code(s): I50.9 - Heart failure, unspecified (6) Diabetes mellitus type II, controlled Diabetes mellitus complication detail: with polyneuropathy Diabetes mellitus complication status: with neurologic complications Diabetes mellitus care home insulin use: with supervisor intermediates use Qualified Code(s): E11.42 - Type 2 diabetes mellitus with diabetic polyneuropathy; Z79.4 - [facility] (current) use of insulin (10) Gout Chronicity: chronic Gout etiology: due to renal impairment Gout site: unspecified site Presence of tophus: without tophus Qualified Code(s): 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 (12) Hypothyroidism Hypothyroidism type: unspecified Qualified Code(s): E03.9 - Hypothyroidism, unspecified
[2023-06-22] MEDS ORDERED: ALBUTEROL HFA 8 GM INHALER INH SCH (21:32)
[2023-06-22] MEDS ORDERED: GLUCOSE 40% GEL 15 GM TUBE PO PRN (21:32)
[2023-06-22] MEDS ORDERED: GLUCAGON FOR INJ 1 MG VIAL SQ PRN (21:32)
[2023-06-22] MEDS ORDERED: NON-FORMULARY MEDICATION (Lutein 20 mg Capsule) PO SCH (21:32)
[2023-06-22] MEDS ORDERED: NON-FORMULARY MEDICATION (Mv-Mn-Om3-Dha-Epa-Fish-Lut-Zea [Ocuvite Adult 50 Plus] 250 mg (9 PO SCH (21:32)
[2023-06-22] MEDS ORDERED: GLUCOSE 10 TAB/TUBE PO PRN (21:32)
[2023-06-22] MEDS ORDERED: DEXTROSE 50% 50 ML SYRINGE IV PRN (21:32)
[2023-06-22] MEDS: INSULIN ASPART PER UNIT CHARGE SC SCH (21:41)
--- NOTE | 2023-06-22 21:56 | Ultrasound Report ---
Exam(s): US RENAL EXAM: US Retroperitoneal Limited, Renal CLINICAL HISTORY: Reason for exam: Polycystic kidney disease with hypervolemia. TECHNIQUE: Real-time limited ultrasound of the retroperitoneum with image documentation. COMPARISON: No relevant prior studies available. FINDINGS: Right kidney: Right lower quadrant renal transplant. No evidence of hydronephrosis. No stones. Left kidney: Unremarkable. No stones. No solid mass. No hydronephrosis. Soft tissues: Exam limited secondary to significant abdominal wall edema. IMPRESSION: 1. Limited exam as described above 2. Right lower quadrant renal transplant without evidence of hydroureteronephrosis. Electronically signed by: Uriah Montez MD 06/22/23 21:55 PM
[2023-06-22] MEDS: METOPROLOL TARTRATE 25 MG TAB PO SCH (22:09)
[2023-06-22] MEDS: LANTUS PER UNIT CHARGE SQ SCH (22:18)
[2023-06-22] MEDS: APIXABAN 5 MG TABLET PO SCH (22:19)
[2023-06-22] MEDS: MAGNESIUM OXIDE 400 MG TAB PO SCH (22:19)
[2023-06-22] MEDS: FAMOTIDINE 20 MG TAB PO SCH (22:19)
[2023-06-22] MEDS: TACROLIMUS 0.5 MG CAP PO SCH (22:19)
[2023-06-22] MEDS: SIMVASTATIN 20 MG TAB PO SCH (22:19)
[2023-06-22] MEDS: MYCOPHENOLATE MOFETIL 250 MG CAP PO SCH (22:19)
[2023-06-22] MEDS: OMEGA-3 (PURIFIED FISH OIL) 1 GM CAP PO SCH (22:19)
[2023-06-22] MEDS: FUROSEMIDE 40 MG/4 ML VIAL IV SCH (22:19)
[2023-06-23] MEDS: LEVOTHYROXINE SODIUM 100 MCG TABLET PO SCH (05:44)
[2023-06-23 06:17] LABS: Hematocrit (blood only) 43.9 % (37.0-47.0); Hemoglobin 14.1 g/dl (12.0-16.0); Mean Corpuscular Hemoglobin 31.7 pg (25.0-34.0); Mean Corpuscular Hgb Conc 32.1 g/dL (32.0-36.0); Mean Corpuscular Volume 98.7 fL (80.0-100.0); Platelet Count 89 K/uL (130-400); RDW Coefficient of Variation 21.7 % (11.5-14.5); RDW Standard Deviation 77.7 fL (36.4-46.3); Red Blood Count 4.45 M/uL (4.20-5.40); White Blood Count 5.53 K/ul (4.8-10.8)
[2023-06-23 06:38] LABS: Albumin Globulin Ratio 1.9 (0.9-2); Albumin Level 3.5 gm/dl (3.4-5.0); BUN Creatinine Ratio 30.5 (10-20); Bilirubin,Total 0.9 mg/dl (0.2-1.0); C Reactive Protein 1.05 mg/dl (0-0.5); Calcium 9.4 mg/dl (8.6-10.3); Creatinine Clr Calc Pharmacy 33.8 ml/min; Est GFR (African American) 32.4 ml/min; Globulin 1.8 gm/dl (2.5-4.0); Potassium 4.6 mmol/L (3.5-5.1); Total Protein 5.3 gm/dl (6.0-8.3)
[2023-06-23] MEDS: ALBUTEROL HFA 8 GM INHALER INH SCH ×4 (07:07→19:16)
--- NOTE | 2023-06-23 07:39 | Electrocardiogram Report ---
Test Reason : Blood Pressure : / mmHG Vent. Rate : 062 BPM Atrial Rate : 050 BPM P-R Int : 000 ms QRS Dur : 080 ms QT Int : 432 ms P-R-T Axes : 000 131 091 degrees QTc Int : 438 ms Atrial fibrillation Low voltage QRS Old Anterolateral infarct (cited on or before 22-JUN-2023) Abnormal ECG When compared with ECG of 22-JUN-2023 14:02, No significant change Confirmed by Braxton Fontenot ([id number]) on 06/23/2023 7:38:28 AM Referred By: Jennifer Crum Confirmed By:Braxton Fontenot
[2023-06-23 07:48] LABS: Estimated Average Glucose 105 mg/dl; Hemoglobin A1C 5.3 % (4.5-5.6)
--- NOTE | 2023-06-23 07:56 | Billing Data ---
Date of Service June 22, 2023 Coding Level of Care Code 47472 INT INP/OBS CARE
--- NOTE | 2023-06-23 09:08 | Nephrology Consultation ---
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 Will ask dietitian to provide education * Continue Furosemide 80 mg IV BID. Monitor UO, daily weight. Patient may require titration during hospitalization * Target weight ~ 206 lbs * When transitioning to oral diuretic, would favor use of Bumetanide and weight based dosing (4) Atrial fibrillation: * Managed w/ Metoprolol, Apixaban (5) Diabetes: * On insulin therapy * May benefit from SGLT2i as outpatient History of Present Illness Reason for Consultation: SHERLYN/CKD, CHF Attending Physician: Dennis Edouard DO History of Present Illness Mrs. Page is a 77 year old white female who is seen at the request of the [facility] for evaluation of SHERLYN/CKD, CHF. Information for the HPI is obtained from patient interview and review of EMR. 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 Martinez). Her post transplant Cr was 1.0 but has since risen to 1.3-1.6. Her immunosuppressive regimen currently consists of Tacrolimus 0.5 mg po BID, MMF 250 mg po BID. Mrs. Page's medical history is significant for ADPKD, AODM, HTN, atrial fibrillation and osteoporosis. 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 Mrs. Page was hospitalized 04/26/23-05/03/23 due to CHF. Following discharge from the hospital and rehab she was noted to rapidly retain volume. Furosemide was increased from 40 mg po BID to 40 mg qAM and 80 mg qPM. Despite this change Mrs. Page notes that over the last 4 weeks her weight has risen 206 to 250 lbs. Mrs. Page presented to [facility] last evening for evaluation of dyspnea and tense LE swelling. Cr was 1.7. CXR revealed CHF w/ small bilateral effusions, 04/19 Echocardiogram report was LVEF 60-65%. Mrs. Page has been admitted to the hospitalist service. Furosemide 80 mg IV BID has been ordered. She has diuresed 650 cc since admission. Mrs. Page reports a low sodium diet. She has not yet been educated on diuretic adjustment based upon weight or symptoms. Allergies Allergy/AdvReac Type Severity Reaction Status Date / Time adhesive Allergy Intermediate ERYTHEMA Verified 06/22/23 16:30 WITH ADHESIVE TAPE, blisters Home Medications Medication Instructions Recorded Confirmed Type multivitamin 1 tab PO QAM ##0 05/23/06 06/22/23 History omega 8-yfo-rbj-fish oil 1,000 mg 1,000 mg PO BID ##0 10/30/10 06/22/23 History (120 mg-180 mg) capsule (Fish Oil) folic acid 1 mg tablet 1 mg PO QAM ##0 05/07/12 06/22/23 History lutein 20 mg capsule 20 mg PO QPM ##0 11/11/14 06/22/23 History lancets 33 gauge (OneTouch Delica #100 ea 06/15/19 06/22/23 History Plus Lancet) tacrolimus 0.5 mg capsule, 0.5 mg PO Q12 08/28/19 06/22/23 History immediate-release mycophenolate mofetil 250 mg 250 mg PO Q12 10/15/20 06/22/23 History capsule fexofenadine 180 mg tablet 180 mg PO DAILY PRN Allergy 05/14/22 06/22/23 History (Mariya Allergy) Symptoms simvastatin 20 mg tablet 20 mg PO HS #90 tabs 07/06/22 06/22/23 Rx diltiazem HCl 180 mg 180 mg PO QAM #90 caps 07/30/22 06/22/23 Rx capsule,extended release 24 hr lisinopril 20 mg tablet 20 mg PO HS #90 tabs 07/30/22 06/22/23 Rx pen needle, diabetic 32 gauge x #100 ea 08/17/22 06/22/23 Rx 532" (BD Ultra-Fine Germania Pen Needle) insulin glargine 100 unit/mL (3 5 unit (0.05 mL) subcut QAM #15 mL 11/30/22 06/22/23 Rx mL) subcutaneous pen (Lantus Solostar U-100 Insulin) allopurinol 300 mg tablet 300 mg PO DAILY #90 tabs 12/28/22 06/22/23 Rx famotidine 20 mg tablet 20 mg PO BID #60 tabs 01/25/23 06/22/23 Rx blood sugar diagnostic #100 ea 03/15/23 06/22/23 Rx apixaban 5 mg tablet (Eliquis) 5 mg PO BID #180 tabs 04/29/23 06/22/23 Rx metoprolol tartrate 25 mg tablet 37.5 mg PO BID #60 tabs 05/03/23 06/22/23 Rx levothyroxine 100 mcg tablet 100 mcg PO DAILYBB #60 tabs 06/08/23 06/22/23 Rx torsemide 20 mg tablet 40 mg PO BID #120 tabs 06/08/23 06/22/23 Rx magnesium oxide 400 mg (241.3 mg 400 mg PO BID #180 tabs 06/16/23 06/22/23 Rx magnesium) tablet acetaminophen 650 mg 650 mg PO Q4H PRN Pain 06/22/23 06/22/23 History tablet,extended release albuterol sulfate 90 mcg/actuation 1 inh inhalation QID 06/22/23 06/22/23 History aerosol inhaler denosumab 60 mg/mL subcutaneous 60 mg subcut DIRECTED 06/22/23 06/22/23 History syringe uehiqvdw-ymo- 250 mg-dha 90 1 cap PO BID 06/22/23 06/22/23 History mg-epa 160 oh-elxb-hhbb-zeax capsule (Ocuvite Adult 50 Plus) Patient History Medical History Acute kidney injury Atrial fibrillation DX 2013 > NO CARDIOVERSIONS Atrial fibrillation with RVR Bilateral leg edema Diabetic peripheral neuropathy associated with type 2 diabetes mellitus Elevated troponin Gastric ulcer RESOLVED History of dysplastic nevus HTN (hypertension) Hypercholesteremia Hyperparathyroidism Hypothyroidism Long-term current use of tacrolimus Macular degeneration BILAT Mitral regurgitation Osteoporosis Paroxysmal atrial fibrillation Personal history of diabetic foot ulcer Polycystic kidney disease HX > DR. ROCK > [facility] > [facility] Proliferative glomerulonephritis with nephrotic syndrome Thrombocytopenia Surgical History History of hysterectomy History of renal transplant (07/02/11) History of squamous cell carcinoma in situ of skin WITH REMOVAL TO HEAD History of tonsillectomy Hx of cholecystectomy Kidney transplant recipient RIGHT > 1995 Family History Mother Diabetes Father Kidney disease Hypertension Son Kidney disease Sister Kidney disease Aunt Breast cancer Denies family history of Ovarian cancer Prostate cancer Myocardial infarction Colorectal cancer Social History Smoking Status: Never smoker Tobacco Type: Cigarettes Second Hand Exposure: No; Do You Dip or Chew Tobacco: No; Hx Alcohol Use: No Hx Substance Use: No Preferred Language: [place] Islander Communication Ability: Effective Visual Impairment: No Limitations Oiler Bander Required: No Beliefs That Will Affect Care: None marital status: Current Living Situation: Spouse Current Living Situation Comment: Lives at home with current occupational status: retired Other Information That Helps Us Care for You: No Feels Safe at Home: Yes Safety Concerns: Feels Safe At This Time Diet: low salt Dental Care, Regularly: Yes Physical Activity Frequency: Does not Exercise Seatbelt Use: always Sunscreen Use: Yes Assistive Devices: Glasses and Walker Review of Systems Constitutional: no fever Eyes: no worsening vision Ear, Nose, Mouth, Throat: no problem reported Respiratory: no cough and no dyspnea Cardiovascular: no chest pain and no palpitations Gastrointestinal: no abdominal pain, no vomiting and no diarrhea/loose stools Genitourinary: no dysuria and no hematuria Physical Exam Constitutional: not in distress Eyes: PERRL, conjunctivae normal, anicteric sclerae ENMT: Mouth: + dry oral mucous membranes Neck: trachea midline, no thyromegaly Respiratory: Auscultation: + rales Cardiovascular: Rate/Rhythm: regular rate and regular rhythm Extremities: + edema (tense bilateral LE edema w/ weeping bullae) Gastrointestinal (Abdomen): Inspection/Auscultation: + hypoactive bowel sounds (obese) Percussion/Palpation: abdomen soft; abdomen nontender No tenderness or bruit overlying renal allograft Neurologic: awake; not confused Speech / Cognition: normal speech and normal cognition Results & Data Vital Signs (Past 12 Hours) Vital Signs Temp Pulse Pulse Resp BP Pulse Ox Pulse Ox 06/23/23 07:30 36.7 C 66 16 114/60 99 06/23/23 07:13 69 16 94 06/23/23 03:50 94 06/23/23 03:13 36.4 C L 69 22 128/66 91 06/22/23 22:55 61 06/22/23 23:26 36.3 C L 62 20 117/56 L 94 06/22/23 21:30 73 06/22/23 21:30 06/22/23 22:08 59 L 06/22/23 21:36 36.4 C L 66 21 118/64 94 O2 Del Method O2 Del Method O2 Flow Rate O2 Flow Rate 06/23/23 07:30 Room Air 06/23/23 07:13 Nasal Cannula 3 06/23/23 03:50 Nasal Cannula 3 06/23/23 03:13 Nasal Cannula 3 06/22/23 22:55 06/22/23 23:26 Nasal Cannula 3 06/22/23 21:30 06/22/23 21:30 Nasal Cannula 2 06/22/23 22:08 06/22/23 21:36 Nasal Cannula 2 Laboratory Results Laboratory Tests 06/22/23 06/23/23 06/23/23 17:40 05:45 05:45 WBC 5.53 Hgb 14.1 Hct 43.9 Plt Count 89 L Sodium 142 Potassium 4.6 Chloride 107 Carbon Dioxide 31 BUN 53 H Creatinine 1.74 H Glucose 72 Hemoglobin A1c Calcium 9.4 Total Bilirubin 0.9 AST 14 ALT 6 L Alkaline Phosphatase 76 C-Reactive Protein 1.05 H Albumin 3.5 Procalcitonin Urine Color Dark Yellow Ur Specific [place] 1.013 Urine Protein 3+ H Urine Glucose (UA) Negative Urine Blood 3+ H Urine Nitrite Negative Urine WBC (Auto) 10-30 H Urine RBC (Auto) >30 H Urine Bacteria (Auto) Negative 06/23/23 06/23/23 05:45 05:45 WBC Hgb Hct Plt Count Sodium Potassium Chloride Carbon Dioxide BUN Creatinine Glucose Hemoglobin A1c 5.3 Calcium Total Bilirubin AST ALT Alkaline Phosphatase C-Reactive Protein Albumin Procalcitonin 0.09 Urine Color Ur Specific [place] Urine Protein Urine Glucose (UA) Urine Blood Urine Nitrite Urine WBC (Auto) Urine RBC (Auto) Urine Bacteria (Auto) Diagnostic Findings 06/22/23 CXR: Cardiac silhouette is enlarged. Layering pleural effusions with bibasilar consolidation. Pulmonary vascular congestion with interstitial coarsening. No pneumothorax. Bones appear grossly intact. 06/22/23 Renal US: Right lower quadrant renal transplant without evidence of hydroureteronephrosis. PG Care Time/CCT Total # of Minutes Spent Total Time Spent with Patient: Total time spent is greater than 50% in coordination of care (as documented) at patient's floor/unit and/or counseling patient: Coding Level of Care Code 30330 IN/OBS CONSULT LVL 5,80M Diagnoses Acute kidney injury N17.9 History of kidney transplant Z94.0 Acute exacerbation of CHF (congestive heart failure) I50.9 Heart failure type: unspecified Atrial fibrillation I48.91 Diabetes E11.9 (3) Acute exacerbation of CHF (congestive heart failure) Heart failure type: unspecified Qualified Code(s): I50.9 - Heart failure, unspecified
[2023-06-23] MEDS: INSULIN ASPART PER UNIT CHARGE SC SCH ×4 (09:11→21:17)
[2023-06-23] MEDS: FUROSEMIDE 40 MG/4 ML VIAL IV SCH ×2 (09:12→17:10)
[2023-06-23] MEDS: LANTUS PER UNIT CHARGE SQ SCH (09:12)
[2023-06-23] MEDS: METOPROLOL TARTRATE 25 MG TAB PO SCH ×2 (09:13→21:26)
[2023-06-23] MEDS: OMEGA-3 (PURIFIED FISH OIL) 1 GM CAP PO SCH ×2 (09:13→21:26)
[2023-06-23] MEDS: MAGNESIUM OXIDE 400 MG TAB PO SCH ×2 (09:14→21:26)
[2023-06-23] MEDS: MULTIVITAMIN TAB PO SCH (09:14)
[2023-06-23] MEDS: MYCOPHENOLATE MOFETIL 250 MG CAP PO SCH ×2 (09:14→21:26)
[2023-06-23] MEDS: FEXOFENADINE HCL 180 MG TAB PO PRN (09:15)
[2023-06-23] MEDS: dilTIAZem HCL 180 MG CAPCR PO SCH (09:15)
[2023-06-23] MEDS: TACROLIMUS 0.5 MG CAP PO SCH ×2 (09:15→21:25)
[2023-06-23] MEDS: FAMOTIDINE 20 MG TAB PO SCH ×2 (09:15→21:26)
[2023-06-23] MEDS: APIXABAN 5 MG TABLET PO SCH ×2 (09:16→21:26)
[2023-06-23] MEDS: FOLIC ACID 1 MG TAB PO SCH (09:16)
[2023-06-23] MEDS: allopurinoL 300 MG TAB PO SCH (09:16)
[2023-06-23] MEDS: CARBOHYDRATES FOR HYPOGLYCEMIA PO PRN ×2 (11:19→20:45)
[2023-06-23] MEDS: SIMVASTATIN 20 MG TAB PO SCH (21:26)
[2023-06-24] MEDS: LEVOTHYROXINE SODIUM 100 MCG TABLET PO SCH (06:11)
[2023-06-24] MEDS: ALBUTEROL HFA 8 GM INHALER INH SCH ×4 (07:25→19:19)
[2023-06-24 07:39] LABS: BUN Creatinine Ratio 29.1 (10-20); Creatinine Clr Calc Pharmacy 33.5 ml/min; Est GFR (African American) 32.2 ml/min; Est GFR (Non-African American) 27.8 ml/min; Magnesium 2.5 mg/dl (1.7-2.4)
[2023-06-24] MEDS: CARBOHYDRATES FOR HYPOGLYCEMIA PO PRN (07:40)
--- NOTE | 2023-06-24 07:56 | Electrocardiogram Report ---
Test Reason : Blood Pressure : / mmHG Vent. Rate : 080 BPM Atrial Rate : 082 BPM P-R Int : 000 ms QRS Dur : 078 ms QT Int : 398 ms P-R-T Axes : 000 119 074 degrees QTc Int : 459 ms Atrial fibrillation Right axis deviation Low voltage QRS Poor R wave progression, consider anterior MD vs. lead placement vs. LVH Abnormal ECG When compared with ECG of 23-JUN-2023 05:28, No significant change Confirmed by Braxton Fontenot ([id number]) on 06/24/2023 7:56:02 AM Referred By: Jennifer Crum Confirmed By:Braxton Fontenot
[2023-06-24] MEDS ORDERED: PHARMACY GLYCEMIC MGMT CONSULT PRN (08:00)
[2023-06-24] MEDS: FAMOTIDINE 20 MG TAB PO SCH ×2 (08:27→22:02)
[2023-06-24] MEDS: dilTIAZem HCL 180 MG CAPCR PO SCH (08:27)
[2023-06-24] MEDS: allopurinoL 300 MG TAB PO SCH (08:27)
[2023-06-24] MEDS: FOLIC ACID 1 MG TAB PO SCH (08:27)
[2023-06-24] MEDS: FUROSEMIDE 40 MG/4 ML VIAL IV SCH ×2 (08:27→17:55)
[2023-06-24] MEDS: OMEGA-3 (PURIFIED FISH OIL) 1 GM CAP PO SCH ×2 (08:27→22:01)
[2023-06-24] MEDS: APIXABAN 5 MG TABLET PO SCH ×2 (08:27→22:01)
[2023-06-24] MEDS: MULTIVITAMIN TAB PO SCH (08:28)
[2023-06-24] MEDS: MYCOPHENOLATE MOFETIL 250 MG CAP PO SCH ×2 (08:28→22:04)
[2023-06-24] MEDS: METOPROLOL TARTRATE 25 MG TAB PO SCH ×2 (08:28→22:07)
[2023-06-24] MEDS: MAGNESIUM OXIDE 400 MG TAB PO SCH ×3 (08:30→22:15)
[2023-06-24] MEDS: INSULIN ASPART PER UNIT CHARGE SC SCH ×4 (08:31→22:02)
[2023-06-24] MEDS: TACROLIMUS 0.5 MG CAP PO SCH ×2 (08:34→22:03)
--- NOTE | 2023-06-24 08:54 | Nephrology Progress Note ---
Date of Service June 24, 2023 Assessment & Plan (1) Acute kidney injury: Plan: * Mild SHERLYN/CKD likely related to CHF/volume overload * 06/22/23 Renal US - no hydronephrosis * Net 1200 cc diuresis since admission. 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 Dietitian has provided education * Continue Furosemide 80 mg IV BID. Monitor UO, daily weight. Patient may require titration during hospitalization * Target weight ~ 206 lbs (94 kg) * When transitioning to oral diuretic, would favor use of Bumetanide and weight based dosing (4) Atrial fibrillation: Plan: * Managed w/ Metoprolol, Apixaban (5) Diabetes: Plan: * On insulin therapy * May benefit from SGLT2i as outpatient Admission and Anticipated Discharge Date Admission Date: June 22, 2023 Subjective Mrs. Page was evaluated in her hospital room this morning. She was breathing comfortably on RA flat in bed. She denied angina, fever or productive cough Review of Systems Constitutional: no fever Eyes: no worsening vision Ear, Nose, Mouth, Throat: no problem reported Respiratory: no cough and no dyspnea Cardiovascular: no chest pain and no palpitations Gastrointestinal: no abdominal pain, no vomiting and no diarrhea/loose stools Genitourinary: no dysuria and no hematuria Physical Exam Constitutional: not in distress Eyes: PERRL, conjunctivae normal, anicteric sclerae ENMT: Mouth: + dry oral mucous membranes Neck: trachea midline, no thyromegaly Respiratory: Auscultation: + rales Cardiovascular: Rate/Rhythm: regular rate and regular rhythm Extremities: + edema (tense bilateral LE edema w/ weeping bullae) Gastrointestinal (Abdomen): Inspection/Auscultation: + hypoactive bowel sounds (obese) Percussion/Palpation: abdomen soft; abdomen nontender Neurologic: awake; not confused Speech / Cognition: normal speech and nor mal cognition Results & Data Vital Signs (Past 12 Hours) Vital Signs Temp Pulse Pulse Resp BP Pulse Ox O2 Del Method 06/24/23 07:56 36.5 C 70 16 125/68 97 Room Air 06/24/23 07:25 76 20 95 Nasal Cannula 06/24/23 03:05 36.4 C L 66 18 119/68 94 Nasal Cannula 06/23/23 22:29 70 06/23/23 22:42 36.7 C 67 16 122/67 93 Nasal Cannula 06/23/23 21:18 71 147/66 H O2 Flow Rate 06/24/23 07:56 06/24/23 07:25 2 06/24/23 03:05 1.5 06/23/23 22:29 06/23/23 22:42 1.5 06/23/23 21:18 Laboratory Results Laboratory Tests 06/24/23 06:04 Sodium 140 Potassium 5.0 Chloride 105 Carbon Dioxide 29 BUN 51 H Creatinine 1.75 H Glucose 53 L* Calcium 9.0 Magnesium 2.5 H 06/23/23 Tacrolimus & MMF levels - pending PG Care Time/CCT Total # of Minutes Spent Total Time Spent with Patient: Total time spent is greater than 50% in coordination of care (as documented) at patient's floor/unit and/or counseling patient: Coding Level of Care Code 02234 SUB INP/OBS CARE 3/50MIN Diagnoses Acute kidney injury N17.9 History of kidney transplant Z94.0 Acute exacerbation of CHF (congestive heart failure) I50.9 Heart failure type: unspecified Atrial fibrillation I48.91 Diabetes E11.9 (3) Acute exacerbation of CHF (congestive heart failure) Heart failure type: unspecified Qualified Code(s): I50.9 - Heart failure, unspecified
[2023-06-24] MEDS ORDERED: LANTUS PER UNIT CHARGE SC SCH (09:00)
--- NOTE | 2023-06-24 09:15 | Pharmacy Report ---
Pharmacy Glycemic Short Note 2 - Date of Service June 24, 2023 - Glycemic Short BSG Results (Last 24 hours): 06/23/23 06/23/23 06/23/23 10:57 11:00 11:15 Glucose POC Glucose 65 L* 66 L* 63 L* 06/23/23 06/23/23 06/23/23 11:18 11:49 12:22 Glucose POC Glucose 61 L* 94 80 06/23/23 06/23/23 06/23/23 14:00 16:20 20:37 Glucose POC Glucose 76 86 69 L* 06/23/23 06/23/23 06/23/23 20:38 21:02 21:03 Glucose POC Glucose 72 67 L* 100 H 06/24/23 06/24/23 06/24/23 06:04 07:27 07:28 Glucose 53 L* POC Glucose 67 L* 72 06/24/23 08:07 Glucose POC Glucose 104 H OUTPATIENT ANTIDIABETIC REGIMEN: * Lantus 5 units SQ QAM- last filled in November 2022 HbA1c: 5.3% on 06/23/23 ASSESSMENT: * 77 y/o F admitted for hypervolemia and renal insufficiency with past history of diabetes. Patient seems to have been on basal insulin 5 units daily but not sure if she has been taking this recently since her prescription was last filled in November of this year. * A1c is normal and she probably doesn't need any anti-diabetic meds at this time. * On admission she was ordered basal insulin 11 units BID- this dosing was more than her home basal dose and too much given her renal insufficiency. * She was hypoglycemic several times yesterday most likely from the basal dose. * Basal dose was reduced to 5 units this AM. Pharmacy consulted for glycemic management today. Fasting bsg today was still low at 67 mg/dl. Therefore, Lantus was discontinued this morning- she did not receive any. * Novolog parameters loosened to less than stress of 1. PLAN FOR INPATIENT GLYCEMIC CONTROL: * Basal insulin * none * Bolus insulin * NovoLog per scale ACHS or Q6hrs while NPO * Goal Range: Low 120 mg/dL - High 160 mg/dL * Correction Factor: 40 mg/dL/unit * Nutritional / Prandial insulin per carb ratio of 1 unit per 20 grams CHO consumed
[2023-06-24] MEDS ORDERED: NURSING DECISION MEDICATION ONE (19:08)
[2023-06-24] MEDS: SIMVASTATIN 20 MG TAB PO SCH (22:04)
[2023-06-24] MEDS: MICONAZOLE NITRATE POWDER 85 GM EXT PRN (22:34)
[2023-06-24] MEDS: ACETAMINOPHEN 325 MG TAB PO PRN (23:00)
[2023-06-25] MEDS: LEVOTHYROXINE SODIUM 100 MCG TABLET PO SCH (06:21)
[2023-06-25] MEDS: ALBUTEROL HFA 8 GM INHALER INH SCH ×4 (06:57→18:14)
[2023-06-25 08:28] LABS: Hemoglobin 13.7 g/dl (12.0-16.0); Mean Corpuscular Hemoglobin 31.7 pg (25.0-34.0); Mean Corpuscular Hgb Conc 32.6 g/dL (32.0-36.0); Mean Corpuscular Volume 97.2 fL (80.0-100.0); Mean Platelet Volume 11.1 fL (9.4-12.4); Platelet Count 82 K/uL (130-400); RDW Coefficient of Variation 21.1 % (11.5-14.5); RDW Standard Deviation 74.4 fL (36.4-46.3); Red Blood Count 4.32 M/uL (4.20-5.40); White Blood Count 7.41 K/ul (4.8-10.8)
[2023-06-25 08:51] LABS: BUN Creatinine Ratio 30.9 (10-20); Calcium 8.5 mg/dl (8.6-10.3); Creatinine Clr Calc Pharmacy 32.9 ml/min; Est GFR (African American) 31.6 ml/min; Est GFR (Non-African American) 27.2 ml/min; Potassium 4.8 mmol/L (3.5-5.1)
[2023-06-25] MEDS: INSULIN ASPART PER UNIT CHARGE SC SCH ×4 (09:10→21:49)
[2023-06-25] MEDS: METOPROLOL TARTRATE 25 MG TAB PO SCH ×2 (09:11→21:46)
[2023-06-25] MEDS: FUROSEMIDE 40 MG/4 ML VIAL IV SCH ×2 (09:12→19:01)
[2023-06-25] MEDS: MAGNESIUM OXIDE 400 MG TAB PO SCH ×2 (09:13→21:47)
[2023-06-25] MEDS: TACROLIMUS 0.5 MG CAP PO SCH ×2 (09:13→21:48)
[2023-06-25] MEDS: MYCOPHENOLATE MOFETIL 250 MG CAP PO SCH ×2 (09:13→21:45)
[2023-06-25] MEDS: allopurinoL 300 MG TAB PO SCH (09:14)
[2023-06-25] MEDS: OMEGA-3 (PURIFIED FISH OIL) 1 GM CAP PO SCH ×2 (09:14→21:49)
[2023-06-25] MEDS: FOLIC ACID 1 MG TAB PO SCH (09:14)
[2023-06-25] MEDS: FEXOFENADINE HCL 180 MG TAB PO PRN (09:14)
[2023-06-25] MEDS: dilTIAZem HCL 180 MG CAPCR PO SCH (09:14)
[2023-06-25] MEDS: FAMOTIDINE 20 MG TAB PO SCH ×2 (09:14→21:47)
[2023-06-25] MEDS: MULTIVITAMIN TAB PO SCH (09:15)
[2023-06-25] MEDS: APIXABAN 5 MG TABLET PO SCH ×2 (09:15→21:45)
--- NOTE | 2023-06-25 11:13 | Nephrology Progress Note ---
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 Here etiology for significant weight gain over a short period of time and repeated hospitalization over last few months for the same. Although there is concern for dietary indiscretion with high salt in diet wonder whether that is only to blame. Concern for recurrence of MGRS, other underlying glomerular disease including allograft nephropathy. She has been net negative since admission however arteries trend of slight worsening of renal function and although she looks edematous but most likely she is intravascularly volume depleted. --continue Lasix 80 mg IV twice a day, accurate monitoring of intake and output, aim for net negative. -- continue on tacrolimus 0.5 mg twice a day and CellCept 250 mg twice a day. l ast tacrolimus trough level was above 12 but for her goal is around 5, will repeat the Prograf level on Tuesday. -- will do a 24 hour urine for better quantification of proteinuria and order some serology. Eventually she should follow with Oncology however she just told me that her regular oncologist at [facility] retired and she does not have any upcoming follow-up. Recommend consulting Oncology here. -- Continue to keep leg and upper extremity elevated, consider using compression stocking for lower extremity, follow low-salt diet. -- eventually she may need renal allograft biopsy for further evaluation Will follow. Admission and Anticipated Discharge Date Admission Date: June 22, 2023 Codei Awad was seen and evaluated in her room this morning. Overall she feels better. However, she continues to be quite edematous with bilateral upper and lower extremity edema as well as abdominal wall edema. Last 24h > 800 ml negative on Lasix 80 mg twice a day, total net negative more than 2 L. Slow worsening of renal function and overall possibly intravascularly volume depleted, blood pressure has been relatively low but asymptomatic. Review of Systems Review of Systems: Detailed review of system was otherwise unremarkable except mentioned above. Physical Exam Constitutional: WD/WN, vitals as above + overweight and + edematous; no acute distress Eyes: + anicteric sclerae ENMT: dry mouth Neck: normal visual inspection Respiratory: no respiratory distress Auscultation: lungs clear to auscultation bilaterally Cardiovascular: Rate/Rhythm: regular rate and regular rhythm Extremities: + edema (2 to 3 + edema up to abdominal wall) Neurologic: no focal motor deficits Psychiatric: Orientation: alert and oriented x 3 Results & Data Vital Signs (Past 12 Hours) Vital Signs Temp Pulse Resp BP Pulse Ox O2 Del Method O2 Flow Rate 06/25/23 07:30 Nasal Cannula 2 06/25/23 08:00 36.4 C L 69 18 103/68 96 Nasal Cannula 2 06/25/23 06:58 74 20 93 Nasal Cannula 2 06/25/23 03:08 36.2 C L 69 22 103/56 L 94 Nasal Cannula 2 PG Care Time/CCT Total # of Minutes Spent Total Time Spent with Patient: Total time spent is greater than 50% in coordination of care (as documented) at patient's floor/unit and/or counseling patient: Coding Level of Care Code 52458 SUB INP/OBS CARE 2/35MIN Diagnoses Hypervolemia E87.70 Acute kidney injury N17.9 History of kidney transplant Z94.0 Proteinuria R80.9 Microscopic hematuria R31.29
[2023-06-25] MEDS: SIMVASTATIN 20 MG TAB PO SCH (21:48)
--- NOTE | 2023-06-25 23:54 | Hospitalist Progress Note ---
Date of Service June 23, 2023 Assessment & Plan Admission and Anticipated Discharge Date Admission Date: June 22, 2023 Subjective Date of service June 23, 2023 Late entry technical Glycemic monitoring reveals blood sugars in the low level so Lantus modified from 11 units twice daily to 5 units once daily. Physical Exam Constitutional: WD/WN, vitals as above Eyes: PERRL, conjunctivae normal, anicteric sclerae ENMT: external ear and nose normal, oropharynx normal Respiratory: Auscultation: + diminished lung sounds Cardiovascular: Rate/Rhythm: regular rate Gastrointestinal (Abdomen): normal bowel sounds, soft, nontender, no hepatosplenomegaly Skin: no rashes, warm and dry Psychiatric: A+Ox3, euthymic affect Results & Data Results & Data Vital Signs (Past 12 Hours) Vital Signs Temp Pulse Resp BP Pulse Ox O2 Del Method O2 Flow Rate 06/25/23 22:38 36.3 C L 72 16 125/73 96 Nasal Cannula 0.5 06/25/23 22:17 70 94 Nasal Cannula 0.5 06/25/23 21:45 77 118/70 06/25/23 19:00 36.3 C L 69 18 113/67 98 Nasal Cannula 06/25/23 18:16 74 18 96 Nasal Cannula 2 06/25/23 15:55 36.4 C L 90 18 119/71 97 Nasal Cannula 06/25/23 15:20 75 20 94 Nasal Cannula 2 06/25/23 12:00 36.4 C L 76 20 120/75 94 Nasal Cannula 2 PG Care Time/CCT Total # of Minutes Spent Total Time Spent with Patient: Total time spent is greater than 50% in coordination of care (as documented) at patient's floor/unit and/or counseling patient: Coding Level of Care Code 18284 SUB INP/OBS CARE 1/25MIN Diagnoses Time Spent (min) 25
--- NOTE | 2023-06-25 23:56 | Hospitalist Progress Note ---
Date of Service June 24, 2023 Assessment & Plan (1) Hypervolemia associated with renal insufficiency: Plan: Patient is a 68-year-old female who presents to the the hospital with hyperlipidemia associated with renal insufficiency as well as congestive heart failure. 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 Patient is hypervolemic on physical exam and has worsening kidney function on labs. Patient with hyperkalemia secondary to renal insufficiency. Patient's creatinine was 1.6 at time of admission. Patient has been taking her diuretics routinely every day but despite this has been significantly fluid overloaded. Most likely patient is retaining fluid due to worsening of renal status. Patient with significant protein and blood in the urine. Urine and blood cultures pending. We will start on Lasix IV 80 mg twice daily and reassess volume status routinely. Nephrology consulted, appreciate recommendations Admission and Anticipated Discharge Date Admission Date: June 22, 2023 Subjective Date of service June 24, 2023 Late entry technical Physical Exam Constitutional: WD/WN, vitals as above Eyes: PERRL, conjunctivae normal, anicteric sclerae ENMT: external ear and nose normal, oropharynx normal Respiratory: decreased bases Cardiovascular: Rate/Rhythm: regular rate Gastrointestinal (Abdomen): normal bowel sounds, soft, nontender, no hepatosplenomegaly Skin: no rashes, warm and dry Results & Data Results & Data Vital Signs (Past 12 Hours) Vital Signs Temp Pulse Resp BP Pulse Ox O2 Del Method O2 Flow Rate 06/25/23 22:38 36.3 C L 72 16 125/73 96 Nasal Cannula 0.5 06/25/23 22:17 70 94 Nasal Cannula 0.5 06/25/23 21:45 77 118/70 06/25/23 19:00 36.3 C L 69 18 113/67 98 Nasal Cannula 06/25/23 18:16 74 18 96 Nasal Cannula 2 06/25/23 15:55 36.4 C L 90 18 119/71 97 Nasal Cannula 06/25/23 15:20 75 20 94 Nasal Cannula 2 06/25/23 12:00 36.4 C L 76 20 120/75 94 Nasal Cannula 2 PG Care Time/CCT Total # of Minutes Spent Total Time Spent with Patient: Total time spent is greater than 50% in coordination of care (as documented) at patient's floor/unit and/or counseling patient: Coding Level of Care Code 46712 SUB INP/OBS CARE 2/35MIN Diagnoses Hypervolemia associated with renal insufficiency E87.70; N28.9 Time Spent (min) 35
--- NOTE | 2023-06-25 23:58 | Hospitalist Progress Note ---
Date of Service June 25, 2023 Assessment & Plan (1) Hypervolemia associated with renal insufficiency: Plan: Patient is a 68-year-old female [facility] with hyperlipidemia associated with renal insufficiency as well as congestive heart failure. 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 Patient is hypervolemic on physical exam and has worsening kidney function on labs. Patient with hyperkalemia secondary to renal insufficiency. Patient's creatinine was 1.6 at time of admission. Patient has been taking her diuretics routinely every day but despite this has been significantly fluid overloaded. Most likely patient is retaining fluid due to worsening of renal status. Patient with significant protein and blood in the urine. Urine and blood cultures pending. We will start on Lasix IV 80 mg twice daily and reassess volume status routinely. Nephrology consulted, appreciate recommendations Admission and Anticipated Discharge Date Admission Date: June 22, 2023 Subjective Patient seen on hospitalist rounds She feels 50% better Results & Data Results & Data Vital Signs (Past 12 Hours) Vital Signs Temp Pulse Resp BP Pulse Ox O2 Del Method O2 Flow Rate 06/25/23 22:38 36.3 C L 72 16 125/73 96 Nasal Cannula 0.5 06/25/23 22:17 70 94 Nasal Cannula 0.5 06/25/23 21:45 77 118/70 06/25/23 19:00 36.3 C L 69 18 113/67 98 Nasal Cannula 06/25/23 18:16 74 18 96 Nasal Cannula 2 06/25/23 15:55 36.4 C L 90 18 119/71 97 Nasal Cannula 06/25/23 15:20 75 20 94 Nasal Cannula 2 06/25/23 12:00 36.4 C L 76 20 120/75 94 Nasal Cannula 2 PG Care Time/CCT Total # of Minutes Spent Total Time Spent with Patient: Total time spent is greater than 50% in coordination of care (as documented) at patient's floor/unit and/or counseling patient: Coding Level of Care Code 60210 SUB INP/OBS CARE 2/35MIN Diagnoses Hypervolemia associated with renal insufficiency E87.70; N28.9 Time Spent (min) 35
[2023-06-26] MEDS: MICONAZOLE NITRATE POWDER 85 GM EXT PRN (06:04)
[2023-06-26] MEDS: LEVOTHYROXINE SODIUM 100 MCG TABLET PO SCH (06:04)
[2023-06-26] MEDS: ALBUTEROL HFA 8 GM INHALER INH SCH ×4 (07:12→19:29)
[2023-06-26] MEDS: METOPROLOL TARTRATE 25 MG TAB PO SCH ×2 (09:37→21:17)
[2023-06-26] MEDS: allopurinoL 300 MG TAB PO SCH (09:39)
[2023-06-26] MEDS: FOLIC ACID 1 MG TAB PO SCH (09:39)
[2023-06-26] MEDS: MULTIVITAMIN TAB PO SCH (09:39)
[2023-06-26] MEDS: APIXABAN 5 MG TABLET PO SCH ×2 (09:40→21:15)
[2023-06-26] MEDS: MAGNESIUM OXIDE 400 MG TAB PO SCH ×2 (09:40→21:13)
[2023-06-26] MEDS: FEXOFENADINE HCL 180 MG TAB PO PRN (09:40)
[2023-06-26] MEDS: dilTIAZem HCL 180 MG CAPCR PO SCH (09:40)
[2023-06-26] MEDS: MYCOPHENOLATE MOFETIL 250 MG CAP PO SCH ×2 (09:40→21:14)
[2023-06-26] MEDS: FUROSEMIDE 40 MG/4 ML VIAL IV SCH ×2 (09:41→17:01)
[2023-06-26] MEDS: FAMOTIDINE 20 MG TAB PO SCH ×2 (09:41→21:14)
[2023-06-26] MEDS: TACROLIMUS 0.5 MG CAP PO SCH ×2 (09:41→21:15)
[2023-06-26] MEDS: OMEGA-3 (PURIFIED FISH OIL) 1 GM CAP PO SCH ×2 (09:41→21:12)
[2023-06-26] MEDS: INSULIN ASPART PER UNIT CHARGE SC SCH ×4 (09:42→21:18)
[2023-06-26 10:28] LABS: Albumin Level 3.3 gm/dl (3.4-5.0); BUN Creatinine Ratio 35.7 (10-20); Calcium 8.9 mg/dl (8.6-10.3); Creatinine Clr Calc Pharmacy 32.5 ml/min; Est GFR (African American) 30.7 ml/min; Est GFR (Non-African American) 26.5 ml/min; Phosphorus 3.6 mg/dl (2.5-4.9); Potassium 5.1 mmol/L (3.5-5.1)
--- NOTE | 2023-06-26 11:46 | Nephrology Progress Note ---
Date of Service June 26, 2023 Assessment & Plan (1) Hypervolemia: (2) Acute kidney injury: (3) History of kidney transplant: (4) Proteinuria: (5) Microscopic hematuria: Plan 77-year-old female with end-stage renal disease secondary to ADPKD s/p DDRT in 1995, has excellent allograft function, b/l cr lately around 1.3 to 1.5, history of nephrotic syndrome, MGUS, proliferative glomerulonephritis, admitted with about 560 lbs weight gain, bilateral lower extremity edema and left upper extremity edema with failed outpatient diuretic therapy. 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 Here etiology for significant weight gain over a short period of time and repeated hospitalization over last few months for the same. Although there is concern for dietary indiscretion with high salt in diet wonder whether that is only to blame. Concern for recurrence of MGRS, other underlying glomerular disease including allograft nephropathy. She has been net negative since admission however renal function continues to worsen slowly. --continue Lasix 80 mg IV twice a day, accurate monitoring of intake and output, aim for net negative. -- continue on tacrolimus 0.5 mg twice a day and CellCept 250 mg twice a day. last tacrolimus trough level was above 12 but for her goal is around 5, will repeat the Prograf level on Tuesday. -- waiting on serology and 24 hour urine for better quantification of proteinuria. Recommend Oncology consultation with history of high-grade proteinuria and MGRS. -- Continue to keep leg and upper extremity elevated, consider using compression stocking for lower extremity, follow low-salt diet. -- eventually she may need renal allograft biopsy for further evaluation Will follow. Admission and Anticipated Discharge Date Admission Date: June 22, 2023 Codie Awad was seen and evaluated in her room this morning. Overall she feels better, sitting up in bedside chair. However, she continues to be quite edematous with bilateral upper and lower extremity edema as well as abdominal wall edema. Denies trauma, total urine output only 900 mL although she slightly negative, on Lasix 80 mg twice a day. renal function continues to worsen slowly. Review of Systems Review of Systems: Detailed review of system was otherwise unremarkable except mentioned above. Physical Exam Constitutional: WD/WN, vitals as above + overweight and + edematous; no acute distress Eyes: + anicteric sclerae Neck: normal visual inspection Respiratory: no respiratory distress Auscultation: lungs clear to auscultation bilaterally Cardiovascular: Rate/Rhythm: regular rate and regular rhythm Extremities: + edema (2 to 3 + edema up to abdominal wall) Neurologic: no focal motor deficits Psychiatric: Orientation: alert and oriented x 3 Results & Data Vital Signs (Past 12 Hours) Vital Signs Temp Pulse Resp BP Pulse Ox Pulse Ox O2 Del Method 06/26/23 11:25 36.4 C L 69 16 132/72 91 Room Air 06/26/23 11:03 70 17 95 Room Air 06/26/23 08:17 36.6 C 65 16 118/69 95 Room Air 06/26/23 07:12 57 L 16 97 Room Air 06/26/23 03:35 36.5 C 72 16 112/72 Room Air 06/26/23 03:35 93 O2 Del Method 06/26/23 11:25 06/26/23 11:03 06/26/23 08:17 06/26/23 07:12 06/26/23 03:35 06/26/23 03:35 Room Air PG Care Time/CCT Total # of Minutes Spent Total Time Spent with Patient: Total time spent is greater than 50% in coordination of care (as documented) at patient's floor/unit and/or counseling patient: Coding Level of Care Code 23541 SUB INP/OBS CARE 3/50MIN Diagnoses Hypervolemia E87.70 Acute kidney injury N17.9 History of kidney transplant Z94.0 Proteinuria R80.9 Microscopic hematuria R31.29
[2023-06-26 13:02] LABS: MPA Glucuronide 91.1 mcg/mL (35.0-100.0); Mycophenolic Acid 0.6 mcg/mL (1.0-3.5)
--- NOTE | 2023-06-26 13:31 | Pharmacy Report ---
Pharmacy Glycemic Sign Off Nt - Date of Service June 26, 2023 - Assessment & Plan ASSESSMENT: * Pharmacy was consulted by Dr Edouard on 06/24/23 for glycemic control and to write orders per [facility] inpatient glycemic control protocol. * Major changes made by pharmacy to antidiabetic regimen include: * adjustment of Novolog * Discontinuation of basal * Patient has been receiving/requiring 0 units of insulin per day for adequate glycemic control * BSGs ranging 72-115 mg/dl * Regimen has only required minor adjustments over the past 48hrs to achieve this level of control * Do not anticipate further changes in patient status that would quickly deteriorate glycemic control (i.e. patient to be NPO for upcoming procedure, steroids tapering, starting tube feedings, etc). PLAN FOR INPATIENT GLYCEMIC CONTROL: No changes needed to current regimen. * hold basal * Continue NovoLog per scale ACHS/Q6hrs while NPO * Goal range = 120-160 mg/dl * CF = 40 mg/dl/unit * no carb coverage * Pharmacy is signing off of glycemic consult and will no longer be making adjustments to inpatient regimen. Please feel free to re-consult if needed. Thank you.
[2023-06-26] MEDS ORDERED: ACETAMINOPHEN 325 MG TAB PO PRN (14:55)
[2023-06-26] MEDS ORDERED: lisinopril 20 MG TAB PO SCH (21:00)
[2023-06-26] MEDS ORDERED: TORSEMIDE 20 MG TAB PO SCH (21:00)
[2023-06-26] MEDS: SIMVASTATIN 20 MG TAB PO SCH (21:12)
--- NOTE | 2023-06-27 00:08 | Discharge Summary ---
Date of Service June 27, 2023 Admission HPI Per Admitting Provider Patient is 77-year-old woman with a past medical history of diabetic CKD with history of renal transplant 1995, type 2 diabetes, atrial fibrillation, hypothyroidism, hyperlipidemia, gout, hyperparathyroidism who presents to the hospital with worsening fluid retention, weight gain, and shortness of breath for the last 2 weeks as well as orthopnea. Was seen by his PCP today and was instructed to go to the emergency room due to these ongoing issues and being borderline hypoxic in the office. Patient has been taking all of her medications. Was recently switched from furosemide 80 mg to torsemide 40 mg 2 weeks prior. She denies any fever, chills, nausea, vomiting, or abdominal pain. Patient states that she also has a wound on her right leg that has been getting worse over this past 2 weeks. In the ED: X-ray showed cardiomegaly with pulmonary edema, as well as layering pleural effusion with bibasilar consolidation. Creatinine of 1.60 and BUN of 52. Troponin 14.8, BNP of 844, UA showed 3+ protein and 3+ blood, EKG showed A- fib, hypoxic in the ED and requiring 2.5 L nasal cannula. Principal Diagnosis acute / chronic CHF combined systolic / diastolic due to Acute / Chronic Kidney disease with functioning renal transplant [facility] 1995 Polycystic Kidney Disease Discharge Data Allergies Allergy/AdvReac Type Severity Reaction Status Date / Time adhesive Allergy Intermediate ERYTHEMA Verified 06/22/23 16:30 WITH ADHESIVE TAPE, blisters Consultations 06/22/23 17:08 ED Decision to Admit Stat 06/22/23 21:32 Consult Nephrology Routine 06/26/23 13:30 Consult Oncology Routine Ordered Studies 06/22/23 19:31 US renal transplant w dop Stat Hospital Course (1) Hypervolemia associated with renal insufficiency: Patient is a 68-year-old female who presents to the the hospital with hyperlipidemia associated with renal insufficiency as well as congestive heart failure. 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 Patient is hypervolemic on physical exam and has worsening kidney function on labs. Patient with hyperkalemia secondary to renal insufficiency. Patient's creatinine was 1.6 at time of admission. Patient has been taking her diuretics routinely every day but despite this has been significantly fluid overloaded. Most likely patient is retaining fluid due to worsening of renal status. Patient with significant protein and blood in the urine. Urine and blood cultures pending. We will start on Lasix IV 80 mg twice daily and reassess volume status routinely. Nephrology consulted, appreciate recommendations Total Time Total Time Spent Total Time Spent (In Minutes): 42 Discharge Plan Discharge Items Patient Disposition: Transfer Halfway Fac Reason For Visit: HYPERVOLEMIA ASSOCIATED WITH RENAL INSUFFICIENCY/ Discharge Diagnosis: Acute over chronic combined systolic diastolic CHF chronic kidney disease stage III Condition on Discharge: Fair Health Concerns: Fluid overload and kidney dysfunction Goals: Maintain estimated dry weight Activity: Resume your previous activity Activity Comment: As tolerated Lifting: None Bathing: No limitations Non-emergency contact: Primary Care Provider, Apparel Sales Associate and C Software Developer Call non-emergency contact if: you have any medication questions and your symptoms worsen Follow-up/Referrals: Jennifer Crum MD [Primary Care Provider] - 07/05/23 11:00 am (Will see Arin Jeffery PA-C in Dr Crum's office) Diet: Dialysis Renal Addtl Attending Provider Instructions: Maintain inputs equal outputs so as not to gain water weight or edema Pending Studies at Discharge: No Stand-Alone Forms: My [facility] Skilled Items Patient informed of condition?: Yes DNR: No Discharge Level of Care: Acute rehab Communicable Disease: No Discharge Prognosis: Improving Lines: None Urinary Catheter: No Medications and DC Order Prescriptions: Continued multivitamin Tablet 1 tab PO QAM Qty: 0 omega 5-def-pur-fish oil [Fish Oil] 1,000 mg (120 mg-180 mg) Capsule 1,000 mg PO BID Qty: 0 folic acid 1 mg Tablet 1 mg PO QAM Qty: 0 lutein 20 mg Capsule 20 mg PO QPM Qty: 0 simvastatin 20 mg tablet 20 mg PO HS Qty: 90 3RF (DME) pen needle, diabetic [BD Ultra-Fine Germania Pen Needle] 32 gauge x 5/32" needle See Rx Instructions .Route Qty: 100 3RF Rx Instructions: Inject insulin daily as directed insulin glargine [Lantus Solostar U-100 Insulin] 100 unit/mL (3 mL) insulin pen 5 unit SUBCUT QAM Qty: 15 3RF allopurinol 300 mg tablet 300 mg PO DAILY Qty: 90 1RF Rx Instructions: 300mg po in the morning famotidine 20 mg tablet 20 mg PO BID Qty: 60 5RF (DME) blood sugar diagnostic Strip See Rx Instructions .ROUTE .MEDSUPPLY Qty: 100 1RF Rx Instructions: Test 4 times daily Eliquis 5 mg tablet 5 mg PO BID Qty: 180 3RF magnesium oxide 400 mg (241.3 mg magnesium) tablet 400 mg PO BID Qty: 180 3RF tacrolimus 0.5 mg capsule 0.5 mg PO Q12 lisinopril 20 mg tablet 20 mg PO HS Qty: 90 3RF diltiazem HCl 180 mg capsule,extended release 24hr 180 mg PO QAM Qty: 90 3RF fexofenadine [Mariya Allergy] 180 mg tablet 180 mg PO DAILY PRN (Reason: Allergy Symptoms) levothyroxine 100 mcg tablet 100 mcg PO DAILYBB Qty: 60 0RF torsemide 20 mg tablet 40 mg PO BID Qty: 120 2RF (DME) lancets [OneTouch Delica Plus Lancet] 33 gauge misc See Dose Instructions .ROUTE .MEDSUPPLY Qty: 100 Rx Instructions: As directed mycophenolate mofetil 250 mg capsule 250 mg PO Q12 denosumab 60 mg/mL syringe 60 mg subcut DIRECTED Rx Instructions: twice a yr. gets next week albuterol sulfate 90 mcg/actuation HFA aerosol inhaler 1 inh inhalation QID metoprolol tartrate 25 mg Tablet 37.5 mg PO BID Qty: 60 0RF acetaminophen 650 mg Tablet Extended Release 650 mg PO Q4H PRN (Reason: Pain) Ocuvite Adult 50 Plus 250 mg (90 mg-160 mg) Capsule 1 cap PO BID Discharge Orders: Discharge Order (Routine); Ordered 06/28/23 Ordered By: Dennis Edouard Admission Data Admit Date/Time: 06/22/23 18:59 Attending Provider: Hamlet Kellogg Admit Provider: Vinny Avilez Primary Care Provider: Jennifer Crum Other Providers: Hamlet Murray ; Meño Wilkinson ; Jina Giraldo Kevin C. ; Briseida Calderon ; Olga Mayen ; Stevenson Hawkins,Rehab Supervising Physician Co-Signing Physician Notes I personally saw and examined the patient. I verified all lloyd points and agree with resident physician Dr Vinny Avilez, with the following exceptions and/or additions: 77 year old renal transplant patient presents to the ER with weight gain, swelling and shortness of breath. Referred by her PCP. Significant nephrotic range proteinuria since at least 2018. Similar admission in April which resolved with IV Lasix 80mg IV BID. O/E A&Ox3, HS irregular rhythm, regular rate, no murmurs, Chest bibasal crackles, clear anteriorly, generalized anasarca on abdomen and pitting edema 3+ in all 4 extremities L > R, especially in upper extremity where she has her AV fistula. Open stage 2 venous ulcers from knee to ankle RLE without significant surrounding erythema or warmth to suggest cellulitis. A/P Hypervolemia due to renal insufficiency - no significant cardiac issue although she does have some pulmonary hypertension possible due to untreated MARIA ESTHER pending outpatient sleep study and mitral regurgitation the primary problem if her kidneys with nephrotic range proteinuria. Lasix 80mg IV BID appeared to work last admission therefore will start off with the same dosing. Unclear if failure due to switching furosemide to torsemide as outpatient vs. worsening intrinsic failure of her transplant - will consult nephrology to decide regarding need for renal biopsy. Transplant renal US ordered as no imaging since February. Strict I&Os, Daily weights. Low Na diet. Consult nephrology for ongoing management. RLE stage 2 venous ulcers - secondary to pedal edema, consult wound care nurse. Do not current suspect cellulitis however prime for infection. Should improve with diuresis. Inflammatory markers order in case need to trend. Coding Level of Care Code 39422 INP/OBS DISCH >30 MIN Diagnoses Hypervolemia associated with renal insufficiency E87.70; N28.9 Time Spent (min) 42
[2023-06-27] MEDS: LEVOTHYROXINE SODIUM 100 MCG TABLET PO SCH (06:18)
[2023-06-27] MEDS: ALBUTEROL HFA 8 GM INHALER INH SCH ×4 (06:58→19:24)
[2023-06-27] MEDS: INSULIN ASPART PER UNIT CHARGE SC SCH ×4 (07:34→21:17)
[2023-06-27 07:50] LABS: Albumin Level 2.9 gm/dl (3.4-5.0); BUN Creatinine Ratio 36.3 (10-20); Calcium 8.3 mg/dl (8.6-10.3); Creatinine Clr Calc Pharmacy 32.3 ml/min; Est GFR (African American) 30.7 ml/min; Est GFR (Non-African American) 26.5 ml/min; Phosphorus 3.8 mg/dl (2.5-4.9); Potassium 5.1 mmol/L (3.5-5.1)
--- NOTE | 2023-06-27 08:42 | Consultation ---
Date of Consultation June 27, 2023 Assessment & Plan (1) Monoclonal gammopathy: Patient has a historic diagnosis of monoclonal gammopathy of renal significance requiring treatment with CyBorD approximately 4 years ago. Current peripheral blood and urine studies show only a marginal skewing of kappa light chains in and of itself not necessarily significant. Otherwise there is no significant indication for a pathologic monoclonal protein on those studies though that does not exclude MGRS. Historically, patient's bone marrow was also unremarkable again not a finding that excludes MGRS We could consider repeating a PET scans to assess for pathologic adenopathy or splenomegaly that has developed in the interim and as well to look for any evolving bone lesions but the yield is likely to be low given the absence of those previously. Similarly we can repeat bone marrow biopsy to see if there is an identifiable B-cell or plasma cell clone but again that is likely be low yield. Most direct way to establish relapse of her diagnosis would be to repeat the renal biopsy. Plan Renal medicine has noted the potential performance of a renal biopsy and that may be the most direct way to establish the presence or absence of relapsed MGRS in need of treatment. History of Present Illness Reason for Consultation: Patient with history of monoclonal gammopathy of renal significance (MGRS) in the context of renal transplant for autosomal dominant polycystic kidney disease (ADPKD) treated in 2020 with CyBorD now with proteinuria and some modulation of renal function Attending Physician: Dennis Edouard, DO History of Present Illness Please note that this is a consultation constructed purely from review of the electronic database. I am working remotely and unable to speak directly with the patient or examine her. I reviewed both the records [facility] and the current admission records which seem to be an accurate source of relevant information but I am completely reliant on that for my conclusions and perspectives. If there are urgent concerns regarding the need for more direct dvdw-uq-tuja review, you should consider transferring the patient to [facility] who had previously directed her care for MGRS. I will follow up with the patient in a [id number] meeting at a later date to augment my assessment and recommendations if desired. The evaluation is consultative in nature and all patient care and treatment decisions can either be accepted or rejected by the patient's primary hospital- based treating physician using their own independent medical judgment for the patient. Patient is a primary diagnosis of ADPKD status post renal transplant. In June 2019 a renal biopsy established diagnosis of MGRS and on that basis she was treated with 6 cycles of CyBorD. Notably bone marrow did not establish any clonal B-cell or plasma cell population and serum and urine studies for monoclonal protein were no more than marginally positive. Please see nephrology and hospitalist notes regarding her admission. Patient presented with fluid overload and has been aggressively diuresed. In that context her creatinine is risen somewhat. Concern is over relapse of her MGRS We note that recent serum protein electrophoresis showed no quantifiable M spike, neither serum nor urine immunofixation clearly identified a monoclonal protein, serum kappa and lambda light chains were both marginally elevated with a slight skewing of the free light chain ratio towards kappa light chains but numerically these were nontraumatic findings and therefore probably not definitively diagnostic. 24-hour urine for Bence-Downs proteins is pending Patient is symptomatically improved after aggressive diuresis. Allergies Allergy/AdvReac Type Severity Reaction Status Date / Time adhesive Allergy Intermediate ERYTHEMA Verified 06/22/23 16:30 WITH ADHESIVE TAPE, blisters Home Medications Medication Instructions Recorded Confirmed Type multivitamin 1 tab PO QAM ##0 05/23/06 06/22/23 History omega 1-fxo-ykj-fish oil 1,000 mg 1,000 mg PO BID ##0 10/30/10 06/22/23 History (120 mg-180 mg) capsule (Fish Oil) folic acid 1 mg tablet 1 mg PO QAM ##0 05/07/12 06/22/23 History lutein 20 mg capsule 20 mg PO QPM ##0 11/11/14 06/22/23 History lancets 33 gauge (OneTouch Delica #100 ea 06/15/19 06/22/23 History Plus Lancet) tacrolimus 0.5 mg capsule, 0.5 mg PO Q12 08/28/19 06/22/23 History immediate-release mycophenolate mofetil 250 mg 250 mg PO Q12 10/15/20 06/22/23 History capsule fexofenadine 180 mg tablet 180 mg PO DAILY PRN Allergy 05/14/22 06/22/23 History (Mariya Allergy) Symptoms simvastatin 20 mg tablet 20 mg PO HS #90 tabs 07/06/22 06/22/23 Rx diltiazem HCl 180 mg 180 mg PO QAM #90 caps 07/30/22 06/22/23 Rx capsule,extended release 24 hr lisinopril 20 mg tablet 20 mg PO HS #90 tabs 07/30/22 06/22/23 Rx pen needle, diabetic 32 gauge x #100 ea 08/17/22 06/22/23 Rx 5/32" (BD Ultra-Fine Germania Pen Needle) insulin glargine 100 unit/mL (3 5 unit (0.05 mL) subcut QAM #15 mL 11/30/22 06/22/23 Rx mL) subcutaneous pen (Lantus Solostar U-100 Insulin) allopurinol 300 mg tablet 300 mg PO DAILY #90 tabs 12/28/22 06/22/23 Rx famotidine 20 mg tablet 20 mg PO BID #60 tabs 01/25/23 06/22/23 Rx blood sugar diagnostic #100 ea 03/15/23 06/22/23 Rx apixaban 5 mg tablet (Eliquis) 5 mg PO BID #180 tabs 04/29/23 06/22/23 Rx metoprolol tartrate 25 mg tablet 37.5 mg PO BID #60 tabs 05/03/23 06/22/23 Rx levothyroxine 100 mcg tablet 100 mcg PO DAILYBB #60 tabs 06/08/23 06/22/23 Rx torsemide 20 mg tablet 40 mg PO BID #120 tabs 06/08/23 06/22/23 Rx magnesium oxide 400 mg (241.3 mg 400 mg PO BID #180 tabs 06/16/23 06/22/23 Rx magnesium) tablet acetaminophen 650 mg 650 mg PO Q4H PRN Pain 06/22/23 06/22/23 History tablet,extended release albuterol sulfate 90 mcg/actuation 1 inh inhalation QID 06/22/23 06/22/23 History aerosol inhaler denosumab 60 mg/mL subcutaneous 60 mg subcut DIRECTED 06/22/23 06/22/23 History syringe [id number] 250 mg-dha 90 1 cap PO BID 06/22/23 06/22/23 History mg-epa 160 ab-tgdx-iqog-zeax capsule (Ocuvite Adult 50 Plus) Patient History Medical History (Updated 06/25/23 @ 11:12 by Jina Giraldo MD) Acute kidney injury Atrial fibrillation DX 2013 > NO CARDIOVERSIONS Atrial fibrillation with RVR Bilateral leg edema Diabetic peripheral neuropathy associated with type 2 diabetes mellitus Elevated troponin Gastric ulcer RESOLVED History of dysplastic nevus HTN (hypertension) Hypercholesteremia Hyperparathyroidism Hypothyroidism Long-term current use of tacrolimus Macular degeneration BILAT Microscopic hematuria Mitral regurgitation Osteoporosis Paroxysmal atrial fibrillation Personal history of diabetic foot ulcer Polycystic kidney disease HX > DR. ROCK > [place] OLE > DR[facility] SUAREZ [facility] Proliferative glomerulonephritis with nephrotic syndrome Proteinuria Thrombocytopenia Surgical History History of hysterectomy History of renal transplant (07/02/11) History of squamous cell carcinoma in situ of skin WITH REMOVAL TO HEAD History of tonsillectomy Hx of cholecystectomy Kidney transplant recipient RIGHT > 1995 Family History Mother Diabetes Father Kidney disease Hypertension Son Kidney disease Sister Kidney disease Aunt Breast cancer Denies family history of Ovarian cancer Prostate cancer Myocardial infarction Colorectal cancer Social History Smoking Status: Never smoker Tobacco Type: Cigarettes Second Hand Exposure: No; Do You Dip or Chew Tobacco: No; Hx Alcohol Use: No Hx Substance Use: No Preferred Language: Yoruba Communication Ability: Effective Visual Impairment: No Limitations Lathe Machinist Required: No Beliefs That Will Affect Care: None marital status: Current Living Situation: Spouse Current Living Situation Comment: Lives at home with current occupational status: retired Feels Safe at Home: Yes Diet: low salt Dental Care, Regularly: Yes Physical Activity Frequency: Does not Exercise Seatbelt Use: always Sunscreen Use: Yes Assistive Devices: Walker Physical Exam Physical Exam: Vital signs are stable, this is an electronic review and no direct examination was performed at that indicated by the hospitalist service seems stable Results & Data Vital Signs (Past 12 Hours) Vital Signs Temp Pulse Pulse Resp BP Pulse Ox O2 Del Method 06/27/23 07:22 58 L 18 110/59 L 96 Nasal Cannula 06/27/23 06:58 56 L 18 93 Room Air 06/27/23 03:00 36.4 C L 58 L 16 115/70 96 Nasal Cannula 06/26/23 22:00 67 06/27/23 00:00 36.5 C 67 17 117/68 95 Nasal Cannula 06/26/23 21:04 36.5 C 67 18 119/66 97 Nasal Cannula O2 Flow Rate 06/27/23 07:22 2 06/27/23 06:58 06/27/23 03:00 06/26/23 22:00 06/27/23 00:00 06/26/23 21:04 2 PG Care Time/CCT Total # of Minutes Spent Total Time Spent with Patient: Total time spent is greater than 50% in coordination of care (as documented) at patient's floor/unit and/or counseling patient: Coding Level of Care Code 07543 IN/OBS CONSULT LVL 2,35M Diagnoses Monoclonal gammopathy D47.2
[2023-06-27 08:51] LABS: Urine Total Protein 63.1 mg/dl
[2023-06-27] MEDS ORDERED: LANTUS PER UNIT CHARGE SQ SCH (09:00)
[2023-06-27] MEDS: MULTIVITAMIN TAB PO SCH (09:05)
[2023-06-27] MEDS: FEXOFENADINE HCL 180 MG TAB PO PRN (09:05)
[2023-06-27] MEDS: APIXABAN 5 MG TABLET PO SCH ×2 (09:05→21:14)
[2023-06-27] MEDS: FUROSEMIDE 40 MG/4 ML VIAL IV SCH ×2 (09:06→17:04)
[2023-06-27] MEDS: METOPROLOL TARTRATE 25 MG TAB PO SCH ×2 (09:06→21:16)
[2023-06-27] MEDS: OMEGA-3 (PURIFIED FISH OIL) 1 GM CAP PO SCH ×2 (09:07→21:14)
[2023-06-27] MEDS: allopurinoL 300 MG TAB PO SCH (09:07)
[2023-06-27] MEDS: FOLIC ACID 1 MG TAB PO SCH (09:08)
[2023-06-27] MEDS: MAGNESIUM OXIDE 400 MG TAB PO SCH ×2 (09:08→21:15)
[2023-06-27] MEDS: MYCOPHENOLATE MOFETIL 250 MG CAP PO SCH ×2 (09:08→21:15)
[2023-06-27] MEDS: TACROLIMUS 0.5 MG CAP PO SCH ×2 (09:08→21:13)
[2023-06-27] MEDS: dilTIAZem HCL 180 MG CAPCR PO SCH (09:08)
[2023-06-27] MEDS: FAMOTIDINE 20 MG TAB PO SCH ×2 (09:08→21:15)
[2023-06-27 09:11] LABS: Total Protein 24 Hour Urine 536.4 mg/24 Hr (0-149.1)
--- NOTE | 2023-06-27 12:21 | Nephrology Progress Note ---
Date of Service June 27, 2023 Assessment & Plan (1) Hypervolemia: (2) Acute kidney injury: (3) History of kidney transplant: (4) Proteinuria: (5) Microscopic hematuria: Plan 77-year-old female with end-stage renal disease secondary to ADPKD s/p DDRT in 1995, has excellent allograft function, b/l cr lately around 1.3 to 1.5, history of nephrotic syndrome, MGUS, proliferative glomerulonephritis, admitted with about 560 lbs weight gain, bilateral lower extremity edema and left upper extremity edema with failed outpatient diuretic therapy. 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 Here etiology for significant weight gain over a short period of time and repeated hospitalization over last few months for the same. Although there is concern for dietary indiscretion with high salt in diet wonder whether that is only to blame. Concern for recurrence of MGRS, other underlying glomerular disease including allograft nephropathy. Cr somewhat stable but remain edematous and UO slightly dropped. --continue Lasix 80 mg IV twice a day, accurate monitoring of intake and output, aim for net negative. May need to increase dose further if UO remains low. -- continue on tacrolimus 0.5 mg twice a day and CellCept 250 mg twice a day. -- Continue to keep leg and upper extremity elevated, consider using compression stocking for lower extremity, follow low-salt diet. -- appreciate oncology recommendation, will try to arrange renal allograft biopsy, possibly with IR here for further evaluation Will follow. Admission and Anticipated Discharge Date Admission Date: June 22, 2023 Codie Awad was seen and evaluated in her room this morning. Overall she continues to feel better, sitting up in bedside chair. Remains quite edematous with bilateral upper and lower extremity edema as well as abdominal wall edema. Urine output dropped slightly, on Lasix 80 mgIV twice a day. Renal function stable, but no improvement. Review of Systems Review of Systems: Detailed review of system was otherwise unremarkable except mentioned above. Physical Exam Constitutional: WD/WN, vitals as above + overweight and + edematous; no acute distress Eyes: + anicteric sclerae Neck: normal visual inspection Respiratory: no respiratory distress Auscultation: lungs clear to auscultation bilaterally Cardiovascular: Rate/Rhythm: regular rate and regular rhythm Extremities: + edema (2 to 3 + edema up to abdominal wall) Neurologic: no focal motor deficits Psychiatric: Orientation: alert and oriented x 3 Results & Data Vital Signs (Past 12 Hours) Vital Signs Temp Pulse Resp BP Pulse Ox O2 Del Method O2 Flow Rate 06/27/23 11:32 36.4 C L 71 20 127/74 94 Nasal Cannula 0.5 06/27/23 11:00 69 16 94 Room Air 06/27/23 10:36 Room Air 06/27/23 07:22 58 L 18 110/59 L 96 Nasal Cannula 2 06/27/23 06:58 56 L 18 93 Room Air 06/27/23 03:00 36.4 C L 58 L 16 115/70 96 Nasal Cannula PG Care Time/CCT Total # of Minutes Spent Total Time Spent with Patient: Total time spent is greater than 50% in coordination of care (as documented) at patient's floor/unit and/or counseling patient: Coding Level of Care Code 00332 SUB INP/OBS CARE 3/50MIN Diagnoses Hypervolemia E87.70 Acute kidney injury N17.9 History of kidney transplant Z94.0 Proteinuria R80.9 Microscopic hematuria R31.29
[2023-06-27] MEDS: SIMVASTATIN 20 MG TAB PO SCH (21:14)
[2023-06-27] MEDS: MICONAZOLE NITRATE POWDER 85 GM EXT PRN (23:43)
[2023-06-28] MEDS: LEVOTHYROXINE SODIUM 100 MCG TABLET PO SCH (05:52)
[2023-06-28 06:58] LABS: Albumin Level 2.9 gm/dl (3.4-5.0); BUN Creatinine Ratio 35.7 (10-20); Calcium 8.1 mg/dl (8.6-10.3); Creatinine Clr Calc Pharmacy 31.8 ml/min; Est GFR (African American) 30.1 ml/min; Phosphorus 3.5 mg/dl (2.5-4.9)
[2023-06-28] MEDS: ALBUTEROL HFA 8 GM INHALER INH SCH ×4 (07:16→19:42)
[2023-06-28] MEDS: INSULIN ASPART PER UNIT CHARGE SC SCH ×4 (08:47→22:01)
[2023-06-28] MEDS: MAGNESIUM OXIDE 400 MG TAB PO SCH ×2 (08:48→22:00)
[2023-06-28] MEDS: METOPROLOL TARTRATE 25 MG TAB PO SCH ×2 (08:48→22:07)
[2023-06-28] MEDS: MYCOPHENOLATE MOFETIL 250 MG CAP PO SCH ×2 (08:49→21:59)
[2023-06-28] MEDS: FAMOTIDINE 20 MG TAB PO SCH ×2 (08:49→21:58)
[2023-06-28] MEDS: FOLIC ACID 1 MG TAB PO SCH (08:50)
[2023-06-28] MEDS: OMEGA-3 (PURIFIED FISH OIL) 1 GM CAP PO SCH ×2 (08:50→21:59)
[2023-06-28] MEDS: APIXABAN 5 MG TABLET PO SCH ×2 (08:50→21:58)
[2023-06-28] MEDS: TACROLIMUS 0.5 MG CAP PO SCH ×2 (08:50→21:57)
[2023-06-28] MEDS: MULTIVITAMIN TAB PO SCH (08:51)
[2023-06-28] MEDS: dilTIAZem HCL 180 MG CAPCR PO SCH (08:51)
[2023-06-28] MEDS: FUROSEMIDE 40 MG/4 ML VIAL IV SCH ×2 (08:52→17:45)
[2023-06-28] MEDS: allopurinoL 300 MG TAB PO SCH (08:52)
--- NOTE | 2023-06-28 11:19 | Nephrology Progress Note ---
Date of Service June 28, 2023 Assessment & Plan (1) Hypervolemia: (2) Acute kidney injury: (3) History of kidney transplant: (4) Proteinuria: (5) Microscopic hematuria: Plan 77-year-old female with end-stage renal disease secondary to ADPKD s/p DDRT in 1995, has excellent allograft function, b/l cr lately around 1.3 to 1.5, history of nephrotic syndrome, MGUS, proliferative glomerulonephritis, admitted with about 560 lbs weight gain, bilateral lower extremity edema and left upper extremity edema with failed outpatient diuretic therapy. 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 Here etiology for significant weight gain over a short period of time and repeated hospitalization over last few months for the same. Although there is concern for dietary indiscretion with high salt in diet wonder whether that is only to blame. Concern for recurrence of MGRS, other underlying glomerular disease including allograft nephropathy. Renal function staying relatively stable, electrolyte acceptable, volume status slowly started to improve. Blood pressure well controlled. --continue Lasix 120 mg IV twice a day, accurate monitoring of intake and output, aim for net negative. May need to increase dose further if UO remains low. -- continue on tacrolimus 0.5 mg twice a day and CellCept 250 mg twice a day. -- Continue to keep leg and upper extremity elevated, consider using compression stocking for lower extremity, follow low-salt diet. -- Had detailed discussion with Transplant Nephrology yesterday, 24 hour urine proteinuria less than 1 g, with renal function relatively stable volume status slightly improving, no definitive plan for renal allograft biopsy at this time. Will follow. Admission and Anticipated Discharge Date Admission Date: June 22, 2023 Codie Awad was seen and evaluated in her room this morning. Overall she continues to feel better, volume status improving slowly. Urine output increased, net negative, on Lasix 120 mg IV twice a day. Renal function relatively stable, but no improvement. Review of Systems Review of Systems: Detailed review of system was otherwise unremarkable except mentioned above. Physical Exam Constitutional: WD/WN, vitals as above + overweight; no acute distress Eyes: + anicteric sclerae Neck: normal visual inspection Respiratory: no respiratory distress Auscultation: lungs clear to auscultation bilaterally Cardiovascular: Rate/Rhythm: regular rate and regular rhythm Extremities: + edema (2 + edema ) Neurologic: no focal motor deficits Psychiatric: Orientation: alert and oriented x 3 Results & Data Vital Signs (Past 12 Hours) Vital Signs Temp Pulse Resp BP Pulse Ox Pulse Ox O2 Del Method 06/28/23 07:16 17 97 Nasal Cannula 06/28/23 07:13 36.4 C L 68 20 110/68 97 Nasal Cannula 06/28/23 03:06 36.4 C L 65 18 122/69 95 Nasal Cannula 06/28/23 03:00 94 06/27/23 23:17 36.3 C L 73 18 120/61 99 Nasal Cannula O2 Del Method O2 Flow Rate O2 Flow Rate 06/28/23 07:16 1 06/28/23 07:13 1 06/28/23 03:06 1.0 06/28/23 03:00 Nasal Cannula 1 06/27/23 23:17 1.0 PG Care Time/CCT Total # of Minutes Spent Total Time Spent with Patient: Total time spent is greater than 50% in coordination of care (as documented) at patient's floor/unit and/or counseling patient: Coding Level of Care Code 79381 SUB INP/OBS CARE 2/35MIN Diagnoses Hypervolemia E87.70 Acute kidney injury N17.9 History of kidney transplant Z94.0 Proteinuria R80.9 Microscopic hematuria R31.29
--- NOTE | 2023-06-28 19:45 | Hospitalist Progress Note ---
Date of Service June 28, 2023 Assessment & Plan (1) Volume overload: Plan: 2nd to SHERLYN in the setting of kidney transplant status. h/o monoclonal gammopathy of renal significance. prior h/o ADPKD leading to her transplant in the (done at [facility]). [place] Giraldo [place] [facility] managing her diuretics. She is now on 120mg BID of IV lasix. Prior echo - 03/2023 - preserved EF, moderate pulmonary HTN seen, normal valve function otherwise. Appreciate Dr Giraldo's assistance. BMP am. (2) Pulmonary edema: Plan: 2nd to SHERLYN in the setting of her renal transplant status. Cont diuresis with lasix 120mg IV BID. See #1 above. (3) Kidney transplant recipient: Plan: - [facility] remains on: * tacrolimus 0.5mg BID * mycophenolate 250mg BID Dr Giraldo spoke with her transplant team in [place] yesterday - no plans for biopsy of the renal transplant at this time. (4) Atrial fibrillation: Plan: Cont Eliquis 5mg BID Cont diltiazem 180mg daily (which could be contributing to edema) Cont metoprolol 37.5mg BID (5) Acute kidney injury: Plan: mild some of this is due to her diuresis Cr today 1.8 BMP am (6) Diabetic peripheral neuropathy associated with type 2 diabetes mellitus: Plan: Hba1c <6% this admission BSGs have been tightly controlled and borderline low HOLD lantus Cont loose SSI with novolog (7) HLD (hyperlipidemia): Plan: Cont simvastatin 20mg daily (8) HTN (hypertension): Plan: LORRAINE on hold due to SHERLYN Remains on diltiazem, metoprolol, and lasix BPs controlled (9) Hypothyroidism: Plan: all TSH levels dating back to 2021 have been high suggesting decompensated hypothyroidism is on synthroid 100mcg daily will inquire with patient about compliance, whether dose has been changed recently, etc certainly this will contribute to edema issues (10) Monoclonal gammopathy: Plan: appreciate heme/onc consultation known monoclonal gammopathy of renal significance some talk about renal transplant bx but this will be deferred for now (11) Polycystic kidney disease: Plan: original kidney disease condition that led to her transplant (12) Wound of right lower extremity: Plan: cont local wound care venous ulcers 2nd to severe edema (13) Morbid obesity with BMI of 40.0-44.9, adult: Plan: BMI 42 Plan DVT proph - elisrinivasis PT, OT Admission and Anticipated Discharge Date Admission Date: June 22, 2023 Subjective patient was resting comfortably in the chair during my visit she was watching TV and eating her meal she reports that her breathing is much better in comparison to admission still with severe swelling/edema of her abdominal wall and legs, however she offers no other complaints Review of Systems Review of Systems: gen - no fevers or chills, eating well cv - no chest pain pulm - no dyspnea at rest; no cough GI - no abd pain or N/V Physical Exam Physical Exam: gen - obese, NAD, sitting in chair neck - no obvious JVD mouth - MM slightly dry heart - irregularly irregular, s1 s2, 2/6 ORTEGA LUSB vasc - left arm AV fistula lungs - decreased BS bases with fine rales bases, no wheeze abd - distended with body wall edema, nontender, BS+ ext - copious edema b/l legs (2-3+ extending to the thighs); edema of left arm; minimal edema right arm; pulses feet 2+ b/l psych - a/o x 3 Results & Data Results & Data Vital Signs (Past 12 Hours) Vital Signs Temp Pulse Pulse Resp BP Pulse Ox O2 Del Method 06/28/23 19:43 18 98 Nasal Cannula 06/28/23 15:00 67 06/28/23 15:51 63 18 94 Room Air 06/28/23 15:26 36.5 C 64 18 110/65 94 Room Air 06/28/23 11:41 36.9 C 64 20 131/77 92 Room Air 06/28/23 10:51 60 16 91 Room Air O2 Flow Rate 06/28/23 19:43 2 06/28/23 15:00 06/28/23 15:51 06/28/23 15:26 06/28/23 11:41 06/28/23 10:51 Laboratory Results Laboratory Results - last 24 hr 06/28/23 06/28/23 06/28/23 05:28 07:38 11:30 Sodium 138 Potassium 5.0 Chloride 103 Carbon Dioxide 30 Anion Gap 5 BUN 66 H Creatinine 1.85 H Est Cr Clr Drug Dosing 31.8 Est GFR ( Amer) 30.1 Est GFR (Non-Af Amer) 26.0 BUN/Creatinine Ratio 35.7 H Glucose 97 POC Glucose 103 H 100 H Calcium 8.1 L Phosphorus 3.5 Albumin 2.9 L 06/28/23 06/28/23 16:14 20:20 Sodium Potassium Chloride Carbon Dioxide Anion Gap BUN Creatinine Est Cr Clr Drug Dosing Est GFR ( Amer) Est GFR (Non-Af Amer) BUN/Creatinine Ratio Glucose POC Glucose 86 137 H Calcium Phosphorus Albumin PG Care Time/CCT Total # of Minutes Spent Total Time Spent with Patient: Total time spent is greater than 50% in coordination of care (as documented) at patient's floor/unit and/or counseling patient: Coding Level of Care Code 66456 SUB INP/OBS CARE 2/35MIN Diagnoses Volume overload E87.70 Pulmonary edema J81.1 Kidney transplant recipient Z94.0 Atrial fibrillation I48.91 Acute kidney injury N17.9 Diabetic peripheral neuropathy associated with type 2 diabetes mellitus E11.42 HLD (hyperlipidemia) E78.5 HTN (hypertension) I10 Hypertension type: primary hypertension Hypothyroidism E03.9 Hypothyroidism type: unspecified Monoclonal gammopathy D47.2 Polycystic kidney disease Q61.3 Wound of right lower extremity S81.801A Morbid obesity with BMI of 40.0-44.9, adult E66.01; Z68.41 (8) HTN (hypertension) Hypertension type: primary hypertension Qualified Code(s): I10 - Essential (primary) hypertension (9) Hypothyroidism Hypothyroidism type: unspecified Qualified Code(s): E03.9 - Hypothyroidism, unspecified
[2023-06-28] MEDS: SIMVASTATIN 20 MG TAB PO SCH (21:57)
[2023-06-29] MEDS: LEVOTHYROXINE SODIUM 100 MCG TABLET PO SCH (06:22)
[2023-06-29 07:00] LABS: BUN Creatinine Ratio 34.6 (10-20); Calcium 8.2 mg/dl (8.6-10.3); Creatinine Clr Calc Pharmacy 30.6 ml/min; Phosphorus 3.1 mg/dl (2.5-4.9); Potassium 5.2 mmol/L (3.5-5.1)
[2023-06-29] MEDS: ALBUTEROL HFA 8 GM INHALER INH SCH ×4 (07:06→20:02)
[2023-06-29] MEDS: MYCOPHENOLATE MOFETIL 250 MG CAP PO SCH ×2 (09:24→20:44)
[2023-06-29] MEDS: MAGNESIUM OXIDE 400 MG TAB PO SCH ×2 (09:24→20:43)
[2023-06-29] MEDS: FEXOFENADINE HCL 180 MG TAB PO PRN (09:25)
[2023-06-29] MEDS: dilTIAZem HCL 180 MG CAPCR PO SCH (09:25)
[2023-06-29] MEDS: OMEGA-3 (PURIFIED FISH OIL) 1 GM CAP PO SCH ×2 (09:25→20:44)
[2023-06-29] MEDS: MULTIVITAMIN TAB PO SCH (09:25)
[2023-06-29] MEDS: APIXABAN 5 MG TABLET PO SCH ×2 (09:26→20:43)
[2023-06-29] MEDS: METOPROLOL TARTRATE 25 MG TAB PO SCH ×2 (09:26→20:43)
[2023-06-29] MEDS: allopurinoL 300 MG TAB PO SCH (09:27)
[2023-06-29] MEDS: FAMOTIDINE 20 MG TAB PO SCH ×2 (09:27→20:43)
[2023-06-29] MEDS: FOLIC ACID 1 MG TAB PO SCH (09:27)
[2023-06-29] MEDS: FUROSEMIDE 40 MG/4 ML VIAL IV SCH ×2 (09:28→17:01)
[2023-06-29] MEDS: TACROLIMUS 0.5 MG CAP PO SCH ×2 (09:28→20:44)
[2023-06-29] MEDS: INSULIN ASPART PER UNIT CHARGE SC SCH ×4 (09:31→20:45)
--- NOTE | 2023-06-29 10:13 | Nephrology Progress Note ---
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 Unclear etiology for significant weight gain over a short period of time and repeated hospitalization over last few months for the same. Although there is concern for dietary indiscretion with high salt in diet wonder whether that is only to blame. Concern for recurrence of MGRS, other underlying glomerular disease including allograft nephropathy. Slow decline in renal function, electrolyte acceptable, volume status slowly started to improve, total >5 L net negative since admission. Blood pressure well controlled. --continue Lasix 120 mg IV twice a day, accurate monitoring of intake and output, aim for net negative. May need to accept mild azotemia in order to improve volume status. -- continue on tacrolimus 0.5 mg twice a day and CellCept 250 mg twice a day. -- Continue to keep leg and upper extremity elevated, consider using compression stocking for lower extremity, follow low-salt diet. --had detailed discussion with Transplant Nephrology at [facility], 24 hour urine proteinuria less than 1 g, with renal function relatively stable volume status slightly improving, no definitive plan for renal allograft biopsy at this time. Will follow. Admission and Anticipated Discharge Date Admission Date: June 22, 2023 Codie Awad was seen and evaluated in her room this morning. She feels better, volume status improving slowly. Urine output increased, net negative, on Lasix 120 mg IV twice a day. Slow worsening of renal function, electrolyte acceptable. Review of Systems Review of Systems: Detailed review of system was otherwise unremarkable except mentioned above. Physical Exam Constitutional: WD/WN, vitals as above + overweight; no acute distress Eyes: + anicteric sclerae Neck: normal visual inspection Respiratory: no respiratory distress Auscultation: lungs clear to auscultation bilaterally Cardiovascular: Rate/Rhythm: regular rate and regular rhythm Extremities: + edema (2 + edema ) Neurologic: no focal motor deficits Psychiatric: Orientation: alert and oriented x 3 Results & Data Vital Signs (Past 12 Hours) Vital Signs Temp Pulse Pulse Resp BP Pulse Ox Pulse Ox 06/29/23 07:30 36.8 C 66 19 112/67 96 06/29/23 07:07 68 16 94 06/29/23 03:48 36.5 C 64 16 107/64 94 06/29/23 03:00 93 06/28/23 23:33 36.5 C 58 L 16 116/73 95 O2 Del Method O2 Del Method O2 Flow Rate O2 Flow Rate 06/29/23 07:30 Nasal Cannula 1 06/29/23 07:07 Nasal Cannula 1 06/29/23 03:48 Nasal Cannula 1 06/29/23 03:00 Nasal Cannula 1 06/28/23 23:33 Nasal Cannula 1 PG Care Time/CCT Total # of Minutes Spent Total Time Spent with Patient: Total time spent is greater than 50% in coordination of care (as documented) at patient's floor/unit and/or counseling patient: Coding Level of Care Code 90299 SUB INP/OBS CARE 2/35MIN Diagnoses Hypervolemia E87.70 Acute kidney injury N17.9 History of kidney transplant Z94.0 Proteinuria R80.9 Microscopic hematuria R31.29
--- NOTE | 2023-06-29 11:04 | Hospitalist Progress Note ---
Date of Service June 29, 2023 Assessment & Plan (1) Monoclonal gammopathy: Plan: In consultation between nephrology and the transplant team decision has been to defer renal biopsy for now. In the absence of any positive findings from such a biopsy, there are no hematologic indications for initiation of systemic therapy. Plan I have asked our office to arrange for follow-up at the end of the year with repeat check of serologies at that time. If renal function change or there is a decision to proceed with biopsy and has positive findings, we would be delighted to become involved in her care sooner. We will sign off, please call if additional questions arise during this hospitalization. Admission and Anticipated Discharge Date Admission Date: June 22, 2023 Subjective Status quo, Results & Data Results & Data Vital Signs (Past 12 Hours) Vital Signs Temp Pulse Pulse Resp BP Pulse Ox Pulse Ox 06/29/23 07:30 36.8 C 66 19 112/67 96 06/29/23 07:07 68 16 94 06/29/23 03:48 36.5 C 64 16 107/64 94 06/29/23 03:00 93 06/28/23 23:33 36.5 C 58 L 16 116/73 95 O2 Del Method O2 Del Method O2 Flow Rate O2 Flow Rate 06/29/23 07:30 Nasal Cannula 1 06/29/23 07:07 Nasal Cannula 1 06/29/23 03:48 Nasal Cannula 1 06/29/23 03:00 Nasal Cannula 1 06/28/23 23:33 Nasal Cannula 1 PG Care Time/CCT Total # of Minutes Spent Total Time Spent with Patient: Total time spent is greater than 50% in coordination of care (as documented) at patient's floor/unit and/or counseling patient: Coding Level of Care Code None Diagnoses Monoclonal gammopathy D47.2
[2023-06-29] MEDS: SIMVASTATIN 20 MG TAB PO SCH (20:45)
--- NOTE | 2023-06-29 20:47 | Hospitalist Progress Note ---
Date of Service June 29, 2023 Assessment & Plan (1) Volume overload: Plan: 2nd to SHERLYN in the setting of kidney transplant status. h/o monoclonal gammopathy of renal significance. prior h/o ADPKD leading to her transplant in the (done at [facility]). Dr Giraldo from [facility] managing her diuretics. She is net negative about 1-1.5 L/day. Cont 120mg BID of IV lasix. Prior echo - 03/2023 - preserved EF, moderate pulmonary HTN seen, normal valve function otherwise. Appreciate Dr Giraldo's assistance. BMP am. (2) Pulmonary edema: Plan: 2nd to SHERLYN in the setting of her renal transplant status. Cont diuresis with lasix 120mg IV BID. See #1 above. (3) Kidney transplant recipient: Plan: - [facility] remains on: * tacrolimus 0.5mg BID * mycophenolate 250mg BID Drug levels pending. Dr Giraldo spoke with her transplant team in [place] earlier this week - no plans for biopsy of the renal transplant at this time. (4) Atrial fibrillation: Plan: Cont Eliquis 5mg BID Cont diltiazem 180mg daily (which could be contributing to edema) Cont metoprolol 37.5mg BID Rates are controlled (5) Acute kidney injury: Plan: mild some of this is due to her diuresis Cr today 1.9 if she becomes intravascularly dry will need to hold diuresis BMP am (6) Diabetic peripheral neuropathy associated with type 2 diabetes mellitus: Plan: Hba1c <6% this admission BSGs have been tightly controlled and borderline low HOLD lantus Cont loose SSI with novolog (7) HLD (hyperlipidemia): Plan: Cont simvastatin 20mg daily (8) HTN (hypertension): Plan: LORRAINE on hold due to SHERLYN Remains on diltiazem, metoprolol, and lasix BPs controlled (9) Hypothyroidism: Plan: all TSH levels dating back to 2021 have been high suggesting decompensated hypothyroidism is on synthroid 100mcg daily will inquire with patient about compliance, whether dose has been changed recently, etc certainly this will contribute to edema issues (10) Monoclonal gammopathy: Plan: appreciate heme/onc consultation known monoclonal gammopathy of renal significance renal transplant bx deferred at this time (11) Polycystic kidney disease: Plan: original kidney disease condition that led to her transplant (12) Wound of right lower extremity: Plan: cont local wound care appreciate wound care consult venous ulcers 2nd to severe edema (13) Morbid obesity with BMI of 40.0-44.9, adult: Plan: BMI 42 Plan DVT proph - eliquis cont PT, OT will need rehab post-d/c Admission and Anticipated Discharge Date Admission Date: June 22, 2023 Subjective patient was sleeping upon my arrival easily awoke feeling ok breathing is better edema slightly improved eating ok she felt stronger working with PT today no MENDOZA while working with PT tele with a.fib overnight no new complaints Review of Systems Review of Systems: cv - no chest pain pulm - no cough GI - no abd pain Physical Exam Physical Exam: gen - obese, NAD, laying in bed comfortably neck - mild JVD at 45 degrees mouth - MM slightly dry (lips) heart - irregularly irregular, s1 s2, 2/6 ORTEGA LUSB lungs - decreased BS bases with improved rales bases, no wheeze abd - distended with body wall edema, firm to touch, nontender, BS+ ext - edema legs (2+ on right, <1+ on left, extending to the thighs); edema of left arm improved; pulses feet 2+ b/l psych - a/o x 3 Results & Data Results & Data Vital Signs (Past 12 Hours) Vital Signs Temp Pulse Pulse Resp BP Pulse Ox O2 Del Method 06/29/23 20:04 70 18 93 Room Air 06/29/23 19:59 Room Air 06/29/23 19:32 36.5 C 71 20 137/83 93 Room Air 06/29/23 16:43 80 06/29/23 15:47 36.8 C 75 20 124/72 97 Nasal Cannula 06/29/23 14:51 68 06/29/23 14:36 76 18 93 Room Air 06/29/23 11:30 36.6 C 105 H 20 113/70 96 Nasal Cannula 06/29/23 11:26 Room Air 06/29/23 11:13 64 18 97 Nasal Cannula O2 Flow Rate 06/29/23 20:04 06/29/23 19:59 06/29/23 19:32 06/29/23 16:43 06/29/23 15:47 1 06/29/23 14:51 06/29/23 14:36 06/29/23 11:30 2 06/29/23 11:26 1 06/29/23 11:13 1 Laboratory Results Laboratory Results - last 24 hr 06/26/23 06/29/23 06/29/23 08:04 05:45 07:23 Sodium 138 Potassium 5.2 H Chloride 103 Carbon Dioxide 31 Anion Gap 4 BUN 66 H Creatinine 1.91 H Est Cr Clr Drug Dosing 30.6 Est GFR ( Amer) 29.0 Est GFR (Non-Af Amer) 25.0 BUN/Creatinine Ratio 34.6 H Glucose 89 POC Glucose 97 Calcium 8.2 L Phosphorus 3.1 Albumin 3.0 L Tacrolimus 11.9 06/29/23 06/29/23 06/29/23 11:22 16:37 20:40 Sodium Potassium Chloride Carbon Dioxide Anion Gap BUN Creatinine Est Cr Clr Drug Dosing Est GFR ( Amer) Est GFR (Non-Af Amer) BUN/Creatinine Ratio Glucose POC Glucose 104 H 105 H 112 H Calcium Phosphorus Albumin Tacrolimus PG Care Time/CCT Total # of Minutes Spent Total Time Spent with Patient: Total time spent is greater than 50% in coordination of care (as documented) at patient's floor/unit and/or counseling patient: Coding Level of Care Code 73315 SUB INP/OBS CARE 12/22MIN Diagnoses Volume overload E87.70 Pulmonary edema J81.1 Kidney transplant recipient Z94.0 Atrial fibrillation I48.91 Acute kidney injury N17.9 Diabetic peripheral neuropathy associated with type 2 diabetes mellitus E11.42 HLD (hyperlipidemia) E78.5 HTN (hypertension) I10 Hypertension type: primary hypertension Hypothyroidism E03.9 Hypothyroidism type: unspecified Monoclonal gammopathy D47.2 Polycystic kidney disease Q61.3 Wound of right lower extremity S81.801A Morbid obesity with BMI of 40.0-44.9, adult E66.01; Z68.41 (8) HTN (hypertension) Hypertension type: primary hypertension Qualified Code(s): I10 - Essential (primary) hypertension (9) Hypothyroidism Hypothyroidism type: unspecified Qualified Code(s): E03.9 - Hypothyroidism, unspecified
[2023-06-30] MEDS: LEVOTHYROXINE SODIUM 100 MCG TABLET PO SCH (06:09)
[2023-06-30 06:16] LABS: Albumin Level 2.9 gm/dl (3.4-5.0); BUN Creatinine Ratio 37.7 (10-20); Calcium 8.2 mg/dl (8.6-10.3); Est GFR (African American) 34.1 ml/min; Est GFR (Non-African American) 29.4 ml/min; Phosphorus 3.1 mg/dl (2.5-4.9); Potassium 4.9 mmol/L (3.5-5.1)
[2023-06-30] MEDS: ALBUTEROL HFA 8 GM INHALER INH SCH ×4 (07:11→19:56)
[2023-06-30] MEDS: FUROSEMIDE 40 MG/4 ML VIAL IV SCH ×2 (07:53→15:50)
[2023-06-30] MEDS: MYCOPHENOLATE MOFETIL 250 MG CAP PO SCH ×2 (07:54→20:29)
[2023-06-30] MEDS: OMEGA-3 (PURIFIED FISH OIL) 1 GM CAP PO SCH ×2 (07:55→20:29)
[2023-06-30] MEDS: allopurinoL 300 MG TAB PO SCH (07:55)
[2023-06-30] MEDS: APIXABAN 5 MG TABLET PO SCH ×2 (07:56→20:28)
[2023-06-30] MEDS: MULTIVITAMIN TAB PO SCH (07:56)
[2023-06-30] MEDS: FAMOTIDINE 20 MG TAB PO SCH ×2 (07:57→20:29)
[2023-06-30] MEDS: METOPROLOL TARTRATE 25 MG TAB PO SCH ×2 (07:58→20:29)
[2023-06-30] MEDS: MAGNESIUM OXIDE 400 MG TAB PO SCH ×2 (07:58→20:29)
[2023-06-30] MEDS: FOLIC ACID 1 MG TAB PO SCH (07:58)
[2023-06-30] MEDS: TACROLIMUS 0.5 MG CAP PO SCH ×2 (07:59→20:29)
[2023-06-30] MEDS: dilTIAZem HCL 180 MG CAPCR PO SCH (08:00)
[2023-06-30] MEDS: INSULIN ASPART PER UNIT CHARGE SC SCH ×4 (08:31→20:37)
--- NOTE | 2023-06-30 09:16 | Nephrology Progress Note ---
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 Unclear etiology for significant weight gain over a short period of time and repeated hospitalization over last few months for the same. Although there is concern for dietary indiscretion with high salt in diet wonder whether that is only to blame. Concern for recurrence of MGRS, other underlying glomerular disease including allograft nephropathy. Volume status slowly started to improve, renal function slightly, electrolyte acceptable, Blood pressure well controlled. --continue Lasix 120 mg IV twice a day, accurate monitoring of intake and output. May need to accept mild azotemia in order to improve volume status. -- continue on tacrolimus 0.5 mg twice a day and CellCept 250 mg twice a day, repeat trough level 11.8 -- Continue to keep leg and upper extremity elevated, consider using compression stocking for lower extremity, follow low-salt diet. --had detailed discussion with Transplant Nephrology at [facility], 24 hour urine proteinuria less than 1 g, with renal function relatively stable volume status slightly improving, no definitive plan for renal allograft biopsy at this time. Will follow. Admission and Anticipated Discharge Date Admission Date: June 22, 2023 Codie Awad was seen and evaluated in her room this morning. She feels better, volume status improving slowly. Urine output increased, net negative, on Lasix 120 mg IV twice a day. Slow worsening of renal function, electrolyte acceptable. Review of Systems Review of Systems: Detailed review of system was otherwise unremarkable except mentioned above. Physical Exam Constitutional: WD/WN, vitals as above + overweight; no acute distress Eyes: + anicteric sclerae Neck: normal visual inspection Respiratory: no respiratory distress Auscultation: lungs clear to auscultation bilaterally Cardiovascular: Rate/Rhythm: regular rate and regular rhythm Extremities: + edema (2 + edema ) Neurologic: no focal motor deficits Psychiatric: Orientation: alert and oriented x 3 Results & Data Vital Signs (Past 12 Hours) Vital Signs Temp Pulse Pulse Resp BP Pulse Ox O2 Del Method 06/30/23 07:25 36.4 C L 72 18 129/68 90 Room Air 06/30/23 07:12 66 16 92 Room Air 06/30/23 05:44 75 06/30/23 04:18 36.5 C 70 20 114/62 93 Room Air 06/29/23 22:49 36.6 C 81 20 123/66 91 Room Air PG Care Time/CCT Total # of Minutes Spent Total Time Spent with Patient: Total time spent is greater than 50% in coordination of care (as documented) at patient's floor/unit and/or counseling patient: Coding Level of Care Code 96754 SUB INP/OBS CARE 2/35MIN Diagnoses Hypervolemia E87.70 Acute kidney injury N17.9 History of kidney transplant Z94.0 Proteinuria R80.9 Microscopic hematuria R31.29
--- NOTE | 2023-06-30 20:28 | Hospitalist Progress Note ---
Date of Service June 30, 2023 Assessment & Plan (1) Volume overload: Plan: slowly improving. 2nd to SHERLYN in the setting of kidney transplant status. h/o monoclonal gammopathy of renal significance. prior h/o ADPKD leading to her transplant in the (done at [facility]). Dr Giraldo from [facility] managing her diuretics. Cont 120mg BID of IV lasix. Cr stable today at 1.6. Prior echo - 03/2023 - preserved EF, moderate pulmonary HTN seen, normal valve fu nction otherwise. Appreciate Dr Giraldo's assistance. BMP am. (2) Pulmonary edema: Plan: Improving. Dyspnea improved. 2nd to SHERLYN in the setting of her renal transplant status. Cont diuresis with lasix 120mg IV BID. See #1 above. (3) Kidney transplant recipient: Plan: - [facility] remains on: * tacrolimus 0.5mg BID * mycophenolate 250mg BID Tacrolimus level 11.[address] Giraldo spoke with her transplant team in [place] earlier this week - no plans for biopsy of the renal transplant at this time. (4) Atrial fibrillation: Plan: Cont Eliquis 5mg BID Cont diltiazem 180mg daily (which could be contributing to edema - consider stopping and uptitrating her metoprolol??) Cont metoprolol 37.5mg BID Rates are controlled (5) Acute kidney injury: Plan: mild but improved Cr 1.9 yesterday; 1.6 today this was due to diuresis BMP am (6) Diabetic peripheral neuropathy associated with type 2 diabetes mellitus: Plan: Hba1c <6% this admission BSGs have been tightly controlled entire stay Cont to HOLD lantus Cont loose SSI with novolog (7) HLD (hyperlipidemia): Plan: Cont simvastatin 20mg daily (8) HTN (hypertension): Plan: LORRAINE on hold due to SHERLYN Remains on diltiazem, metoprolol, and lasix BPs controlled (9) Hypothyroidism: Plan: all TSH levels dating back to 2021 have been high suggesting decompensated hypothyroidism is on synthroid 100mcg daily 06/08/23 - dose increased from 88mcg to 100mcg will need repeat TSH in late June (10) Monoclonal gammopathy: Plan: appreciate heme/onc consultation known monoclonal gammopathy of renal significance renal transplant bx deferred at this time (11) Polycystic kidney disease: Plan: original kidney disease condition that led to her transplant (12) Wound of right lower extremity: Plan: cont local wound care appreciate wound care consult venous ulcers 2nd to severe edema (13) Morbid obesity with BMI of 40.0-44.9, adult: Plan: BMI 42 Plan DVT proph - eliquis cont PT, OT will need rehab post-d/c progressing left message for pt's on his voicemail this evening Admission and Anticipated Discharge Date Admission Date: June 22, 2023 Subjective no new issues overnight she walked into the hallway today with therapy she was pleased by this did have mild dyspnea with such no dyspnea at rest she continues to have weeping of serous fluid from right leg venous ulcers abdomen feels less distended to her eating well moving bowels tele stable Review of Systems Review of Systems: cv - no orthopnea pulm - mild MENDOZA GI - no pain/nausea/emesis - [place] remains in place Physical Exam Physical Exam: gen - obese, NAD, laying in bed comfortably neck - mild JVD at 45 degrees heart - irregularly irregular, s1 s2, 2/6 ORTEGA LUSB, rate <100 lungs - decreased BS bases with no rales today; no wheeze abd - distended with body wall edema but is improved; nontender, BS+ ext - edema legs (1-2+ on right, <1+ on left, extending to the thighs); edema of left arm improved; pulses feet 2+ b/l psych - a/o x 3 Results & Data Results & Data Vital Signs (Past 12 Hours) Vital Signs Temp Pulse Pulse Resp BP Pulse Ox O2 Del Method 06/30/23 19:54 36.6 C 71 20 132/77 95 Room Air 06/30/23 19:56 71 17 91 Room Air 06/30/23 15:58 36.5 C 56 L 18 124/76 95 Room Air 06/30/23 16:23 63 06/30/23 15:03 64 16 96 Room Air 06/30/23 10:37 36.5 C 69 18 130/72 94 Room Air Laboratory Results Laboratory Results - last 24 hr 06/29/23 06/30/23 06/30/23 20:40 05:32 07:32 Sodium 138 Potassium 4.9 Chloride 103 Carbon Dioxide 30 Anion Gap 5 BUN 63 H Creatinine 1.67 H Est Cr Clr Drug Dosing 35.0 Est GFR ( Amer) 34.1 Est GFR (Non-Af Amer) 29.4 BUN/Creatinine Ratio 37.7 H Glucose 99 POC Glucose 112 H 90 Calcium 8.2 L Phosphorus 3.1 Albumin 2.9 L 06/30/23 06/30/23 11:10 16:19 Sodium Potassium Chloride Carbon Dioxide Anion Gap BUN Creatinine Est Cr Clr Drug Dosing Est GFR ( Amer) Est GFR (Non-Af Amer) BUN/Creatinine Ratio Glucose POC Glucose 103 H 102 H Calcium Phosphorus Albumin PG Care Time/CCT Total # of Minutes Spent Total Time Spent with Patient: Total time spent is greater than 50% in coordination of care (as documented) at patient's floor/unit and/or counseling patient: Coding Level of Care Code 40460 SUB INP/OBS CARE 12/22MIN Diagnoses Volume overload E87.70 Pulmonary edema J81.1 Kidney transplant recipient Z94.0 Atrial fibrillation I48.91 Acute kidney injury N17.9 Diabetic peripheral neuropathy associated with type 2 diabetes mellitus E11.42 HLD (hyperlipidemia) E78.5 HTN (hypertension) I10 Hypertension type: primary hypertension Hypothyroidism E03.9 Hypothyroidism type: unspecified Monoclonal gammopathy D47.2 Polycystic kidney disease Q61.3 Wound of right lower extremity S81.801A Morbid obesity with BMI of 40.0-44.9, adult E66.01; Z68.41 (8) HTN (hypertension) Hypertension type: primary hypertension Qualified Code(s): I10 - Essential (primary) hypertension (9) Hypothyroidism Hypothyroidism type: unspecified Qualified Code(s): E03.9 - Hypothyroidism, unspecified
[2023-06-30] MEDS: SIMVASTATIN 20 MG TAB PO SCH (20:29)
[2023-06-30] MEDS: ACETAMINOPHEN 325 MG TAB PO PRN (23:12)
[2023-07-01] MEDS: LEVOTHYROXINE SODIUM 100 MCG TABLET PO SCH (05:15)
[2023-07-01 06:40] LABS: Hemoglobin 13.2 g/dl (12.0-16.0); Mean Corpuscular Hemoglobin 31.4 pg (25.0-34.0); Mean Corpuscular Hgb Conc 33.8 g/dL (32.0-36.0); Mean Corpuscular Volume 92.6 fL (80.0-100.0); Platelet Count 85 K/uL (130-400); RDW Coefficient of Variation 20.2 % (11.5-14.5); Red Blood Count 4.21 M/uL (4.20-5.40); White Blood Count 5.38 K/ul (4.8-10.8)
[2023-07-01 06:58] LABS: Albumin Level 3.2 gm/dl (3.4-5.0); Calcium 8.2 mg/dl (8.6-10.3); Creatinine Clr Calc Pharmacy 36.4 ml/min; Est GFR (African American) 36.5 ml/min; Est GFR (Non-African American) 31.5 ml/min; Phosphorus 2.8 mg/dl (2.5-4.9); Potassium 4.7 mmol/L (3.5-5.1)
[2023-07-01] MEDS: ALBUTEROL HFA 8 GM INHALER INH SCH ×4 (07:08→19:11)
[2023-07-01] MEDS: INSULIN ASPART PER UNIT CHARGE SC SCH ×4 (08:44→20:52)
[2023-07-01] MEDS: dilTIAZem HCL 180 MG CAPCR PO SCH (09:12)
[2023-07-01] MEDS: OMEGA-3 (PURIFIED FISH OIL) 1 GM CAP PO SCH ×2 (09:12→20:52)
[2023-07-01] MEDS: allopurinoL 300 MG TAB PO SCH (09:12)
[2023-07-01] MEDS: FAMOTIDINE 20 MG TAB PO SCH ×2 (09:12→20:54)
[2023-07-01] MEDS: FOLIC ACID 1 MG TAB PO SCH (09:13)
[2023-07-01] MEDS: FUROSEMIDE 40 MG/4 ML VIAL IV SCH (09:13)
[2023-07-01] MEDS: MAGNESIUM OXIDE 400 MG TAB PO SCH ×2 (09:13→20:53)
[2023-07-01] MEDS: TACROLIMUS 0.5 MG CAP PO SCH ×2 (09:14→20:53)
[2023-07-01] MEDS: MULTIVITAMIN TAB PO SCH (09:14)
[2023-07-01] MEDS: MYCOPHENOLATE MOFETIL 250 MG CAP PO SCH ×2 (09:14→20:54)
[2023-07-01] MEDS: METOPROLOL TARTRATE 25 MG TAB PO SCH ×2 (09:14→20:53)
[2023-07-01] MEDS: APIXABAN 5 MG TABLET PO SCH ×2 (10:34→20:53)
--- NOTE | 2023-07-01 10:43 | Nephrology Progress Note ---
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 Unclear etiology for significant weight gain over a short period of time and repeated hospitalization over last few months for the same. Although there is concern for dietary indiscretion with high salt in diet wonder whether that is only to blame. Concern for recurrence of MGRS, other underlying glomerular disease including allograft nephropathy. Volume status Continues to improve, overall more than 7 L negative. Renal function has been improving, currently creatinine close to baseline, electrolyte acceptable, Blood pressure well controlled. -- change lasix to 120 mg po bid, looks like maybe she will be ready for discharge in a day or 2. -- continue on tacrolimus 0.5 mg twice a day and CellCept 250 mg twice a day, repeat trough level 11.8 -- Continue to keep leg and upper extremity elevated, consider using compression stocking for lower extremity, follow low-salt diet. --had detailed discussion with Transplant Nephrology at [facility], 24 hour urine proteinuria less than 1 g, with renal function relatively stable volume status slightly improving, no definitive plan for renal allograft biopsy at this time. Will follow. Admission and Anticipated Discharge Date Admission Date: June 22, 2023 Codie Awad was seen and evaluated in her room this morning. She feels better, volume status continues to improve, she is more than 7 L negative since admission. Renal function improved and close to baseline, creatinine staying around 1.6, electrolyte acceptable while on Lasix 120 mg IV twice a day. Blood pressure well controlled. Review of Systems Review of Systems: Detailed review of system was otherwise unremarkable except mentioned above. Physical Exam Constitutional: WD/WN, vitals as above + overweight; no acute distress Eyes: + anicteric sclerae Neck: normal visual inspection Respiratory: no respiratory distress Auscultation: lungs clear to auscultation bilaterally Cardiovascular: Rate/Rhythm: regular rate and regular rhythm Extremities: + edema (2 + edema ) Neurologic: no focal motor deficits Psychiatric: Orientation: alert and oriented x 3 Results & Data Vital Signs (Past 12 Hours) Vital Signs Temp Pulse Pulse Resp BP Pulse Ox Pulse Ox 07/01/23 08:00 37.0 C 83 20 114/61 95 07/01/23 07:08 82 16 96 07/01/23 04:10 36.7 C 76 18 111/66 93 07/01/23 03:00 92 07/01/23 02:05 77 06/30/23 23:08 36.7 C 81 18 134/74 93 O2 Del Method O2 Del Method 07/01/23 08:00 Room Air 07/01/23 07:08 Room Air 07/01/23 04:10 Room Air 07/01/23 03:00 Room Air 07/01/23 02:05 06/30/23 23:08 Room Air PG Care Time/CCT Total # of Minutes Spent Total Time Spent with Patient: Total time spent is greater than 50% in coordination of care (as documented) at patient's floor/unit and/or counseling patient: Coding Level of Care Code 13339 SUB INP/OBS CARE 2/35MIN Diagnoses Hypervolemia E87.70 Acute kidney injury N17.9 History of kidney transplant Z94.0 Proteinuria R80.9 Microscopic hematuria R31.29
[2023-07-01] MEDS: FUROSEMIDE 40 MG TAB PO SCH (17:47)
[2023-07-01] MEDS: SIMVASTATIN 20 MG TAB PO SCH (20:54)
--- NOTE | 2023-07-01 21:06 | Hospitalist Progress Note ---
Date of Service July 01, 2023 Assessment & Plan (1) Volume overload: Plan: cont to improve. net negative about 1 to 1.5 liters each day. responding nicely to lasix 120mg IV BID. 2nd to SHERLYN in the setting of kidney transplant status. h/o monoclonal gammopathy of renal significance. 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 Dr Giraldo from [facility] Neph[facility] managing her diuretics. Cr stable today at 1.58. Prior echo - 03/2023 - preserved EF, moderate pulmonary HTN seen, normal valve function otherwise. Appreciate Dr Giraldo's assistance. BMP daily. (2) Pulmonary edema: Plan: Improving. Dyspnea improved. Probably has residual effusions given ongoing MENDOZA. 2nd to SHERLYN in the setting of her renal transplant status. Cont diuresis with lasix 120mg IV BID. See #1 above. (3) Kidney transplant recipient: Plan: - [facility] remains on: * tacrolimus 0.5mg BID * mycophenolate 250mg BID Tacrolimus level 11.[address] Giraldo spoke with her transplant team in [place] earlier this week - no plans for biopsy of the renal transplant at this time. (4) Atrial fibrillation: Plan: Cont Eliquis 5mg BID Diltiazem could be contributing to edema. Will try to wean off. Thus, tomorrow, lower diltiazem 120mg daily. Cont but increase to metoprolol 50mg BID Rates remain controlled (5) Acute kidney injury: Plan: improved peak Cr 1.9 now 1.5 bmp in am SHERLYN was 2nd to diuresis (6) Diabetic peripheral neuropathy associated with type 2 diabetes mellitus: Plan: Hba1c <6% this admission BSGs have been tightly controlled entire stay Cont to HOLD lantus Cont loose SSI with novolog (7) HLD (hyperlipidemia): Plan: Cont simvastatin 20mg daily (8) HTN (hypertension): Plan: LORRAINE on hold due to SHERLYN Remains on diltiazem, metoprolol, and lasix BPs controlled see above RE: diltiazem & metoprolol (9) Hypothyroidism: Plan: all TSH levels dating back to 2021 have been high suggesting decompensated hypothyroidism is on synthroid 100mcg daily 06/08/23 - dose increased from 88mcg to 100mcg will need repeat TSH in late June (10) Monoclonal gammopathy: Plan: appreciate heme/onc consultation known monoclonal gammopathy of renal significance renal transplant bx deferred at this time (11) Polycystic kidney disease: Plan: original kidney disease condition that led to her transplant (12) Wound of right lower extremity: Plan: worse corresponded with the wound care clinic -- cont aquacel silver, ABDs, then kerlix dressings ELEVATE the legs would benefit from tubigrips venous ulcers 2nd to severe edema place optifoams on left monzon (mild weeping from that leg as well) (13) Morbid obesity with BMI of 40.0-44.9, adult: Plan: BMI 41 Plan DVT proph - eliquis cont PT, OT will need rehab post-d/c progressing left message for pt's on his voicemail yesterday evening Admission and Anticipated Discharge Date Admission Date: June 22, 2023 Subjective nursing staff report that patient's right leg is weeping large amounts of serous fluid from skin that sloughed off overnight the area of sloughed skin is on the anterior right monzon she is also having some minor weeping from the left anterior monzon walked a bit further today with PT had no MENDOZA with such no dyspnea at rest has been out to the chair all day didn't sleep well last pm eating well tele - stable, rate-controlled a.fib Review of Systems Review of Systems: cv - no chest pain pulm - no dyspnea at rest, no cough GI - no abd pain or N/V; moving bowels Physical Exam Physical Exam: gen - obese, NAD, laying in recliner neck - mild JVD present heart - irregularly irregular, s1 s2, 2/6 ORTEGA LUSB, rate <100 lungs - decreased BS bases; minimal rales bases; no wheeze abd - distended with body wall edema but improving; nontender, BS+; midline hernia present - reducible ext - edema legs (1-2+ on right, <1+ on left, extending to the thighs); edema of left arm improved; pulses feet 2+ b/l psych - a/o x 3 skin - severe venous stasis changes b/l legs with bubbling appearance of skin; right monzon - large area of denuded skin, large portion of that area with beefy red underlying dermis; serous drainage; early necrotic skin in medial portion of this skin tear; no purulence; large papule on the right monzon as well; left monzon - no open ulcer, but she is weeping some serous fluid from the mid-monzon Results & Data Results & Data Vital Signs (Past 12 Hours) Vital Signs Temp Pulse Pulse Resp BP Pulse Ox O2 Del Method 07/01/23 19:32 36.4 C L 77 17 133/66 94 Room Air 07/01/23 14:40 70 07/01/23 16:30 36.8 C 70 18 118/73 97 Room Air 07/01/23 15:13 68 20 96 Room Air 07/01/23 12:00 36.9 C 88 18 105/69 97 Room Air 07/01/23 11:09 78 16 97 Room Air Laboratory Results Laboratory Results 07/01/23 07/01/23 06:03 06:03 WBC 5.38 RBC 4.21 Hgb 13.2 Hct 39.0 MCV 92.6 MCH 31.4 MCHC 33.8 RDW Std Deviation 67.0 H RDW Coeff of Lidya 20.2 H Plt Count 85 L Sodium 137 Potassium 4.7 Chloride 103 Carbon Dioxide 28 Anion Gap 6 BUN 60 H Creatinine 1.58 H Est Cr Clr Drug Dosing 36.4 Est GFR ( Amer) 36.5 Est GFR (Non-Af Amer) 31.5 BUN/Creatinine Ratio 38.0 H Glucose 95 POC Glucose Calcium 8.2 L Phosphorus 2.8 Albumin 3.2 L 07/01/23 07/01/23 07/01/23 07:49 11:15 16:20 WBC RBC Hgb Hct MCV MCH MCHC RDW Std Deviation RDW Coeff of Lidya Plt Count Sodium Potassium Chloride Carbon Dioxide Anion Gap BUN Creatinine Est Cr Clr Drug Dosing Est GFR ( Amer) Est GFR (Non-Af Amer) BUN/Creatinine Ratio Glucose POC Glucose 111 H 113 H 107 H Calcium Phosphorus Albumin PG Care Time/CCT Total # of Minutes Spent Total Time Spent with Patient: Total time spent is greater than 50% in coordination of care (as documented) at patient's floor/unit and/or counseling patient: Coding Level of Care Code 89037 SUB INP/OBS CARE 2/35MIN Diagnoses Volume overload E87.70 Pulmonary edema J81.1 Kidney transplant recipient Z94.0 Atrial fibrillation I48.91 Acute kidney injury N17.9 Diabetic peripheral neuropathy associated with type 2 diabetes mellitus E11.42 HLD (hyperlipidemia) E78.5 HTN (hypertension) I10 Hypertension type: primary hypertension Hypothyroidism E03.9 Hypothyroidism type: unspecified Monoclonal gammopathy D47.2 Polycystic kidney disease Q61.3 Wound of right lower extremity S81.801A Morbid obesity with BMI of 40.0-44.9, adult E66.01; Z68.41 (8) HTN (hypertension) Hypertension type: primary hypertension Qualified Code(s): I10 - Essential (primary) hypertension (9) Hypothyroidism Hypothyroidism type: unspecified Qualified Code(s): E03.9 - Hypothyroidism, unspecified
[2023-07-01] MEDS: MELATONIN 3 MG TAB PO SCH (21:45)
[2023-07-02] MEDS: LEVOTHYROXINE SODIUM 100 MCG TABLET PO SCH (05:52)
[2023-07-02] MEDS: ALBUTEROL HFA 8 GM INHALER INH SCH ×4 (07:18→19:06)
[2023-07-02 07:54] LABS: BUN Creatinine Ratio 36.9 (10-20); Calcium 8.2 mg/dl (8.6-10.3); Creatinine Clr Calc Pharmacy 38.5 ml/min; Est GFR (African American) 39.1 ml/min; Est GFR (Non-African American) 33.8 ml/min; Phosphorus 2.9 mg/dl (2.5-4.9); Potassium 4.8 mmol/L (3.5-5.1)
[2023-07-02] MEDS: INSULIN ASPART PER UNIT CHARGE SC SCH ×4 (08:21→20:41)
[2023-07-02] MEDS: FOLIC ACID 1 MG TAB PO SCH (08:25)
[2023-07-02] MEDS: FAMOTIDINE 20 MG TAB PO SCH ×2 (08:25→20:29)
[2023-07-02] MEDS: dilTIAZem HCL 120 MG CAPCR PO SCH (08:25)
[2023-07-02] MEDS: APIXABAN 5 MG TABLET PO SCH ×2 (08:25→20:29)
[2023-07-02] MEDS: FUROSEMIDE 40 MG TAB PO SCH ×2 (08:25→16:24)
[2023-07-02] MEDS: allopurinoL 300 MG TAB PO SCH (08:25)
[2023-07-02] MEDS: TACROLIMUS 0.5 MG CAP PO SCH ×2 (08:25→20:28)
[2023-07-02] MEDS: METOPROLOL TARTRATE 50 MG TAB PO SCH ×2 (08:25→20:28)
[2023-07-02] MEDS: MAGNESIUM OXIDE 400 MG TAB PO SCH ×2 (08:25→20:28)
[2023-07-02] MEDS: OMEGA-3 (PURIFIED FISH OIL) 1 GM CAP PO SCH ×2 (08:25→20:28)
[2023-07-02] MEDS: MULTIVITAMIN TAB PO SCH (08:26)
[2023-07-02] MEDS: MYCOPHENOLATE MOFETIL 250 MG CAP PO SCH ×2 (08:26→20:28)
--- NOTE | 2023-07-02 10:07 | Nephrology Progress Note ---
Date of Service July 02, 2023 Assessment & Plan (1) Acute kidney injury: Plan: Non-oliguric. Creatinine improving with supportive care and diuresis. Volume status also improving. Electrolytes acceptable. Lisinopril has been held but consideration may be given to restarting. I opted to continue to hold for now pending additional monitoring. Kitchen catheter may be removed unless necessary from nursing perspective. Medications are appropriately dosed for kidney function. Repeat metabolic profile tomorrow AM. 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 Baseline creatinine ~1.5 mg/dL. A3 proteinuria (536 mg on 24 hour collection). 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 Tacro has been limited to 0.5 mg BID. Trough remains ~10. Continue Cellcept 250 mg BID. Lisinopril has been held. 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 Followed by hematology at [facility]. Non- nephrotic proteinuria, kidney function improving, overall clinical improvement, UPEP not compelling at this time and follow up allograft biopsy has been deferred. (3) Hypervolemia: Plan: Improving with furosemide 120 mg PO BID. Continue current Rx. Had been maintained on Torsemide at home. Low sodium diet. Feet elevation. TTE with normal LVEF and moderate MR. Elevated RVSP. (4) Proteinuria: Plan: Lisinopril held due to SHERLYN. No biopsy at this time. PLA2r negative in the past. Repeat testing pending. Admission and Anticipated Discharge Date Admission Date: June 22, 2023 Subjective No acute events overnight. Delmi reports feeling tired this morning. She told me that she took a sleeping pill last night to help her rest. It has been difficult to rest with ongoing construction outside. She told me that she was out of bed and walking to the nursing station yesterday and that she feels her strength is adequate to return home. She denies any notable dyspnea with exertion or at rest. She has not experienced chest pains or palpitations. She denies any lightheadedness or dizziness. Edema continues to improve. Kitchen remains in but Delmi feels that she is ready to have it removed. Appetite is good. LE wounds are wrapped. Delmi denies pain. She reports continued weeping from the legs. I spoke to the bedside RN who reported Delmi continuing to require 1-2 person assist. Imtiaz was left in for monitoring of I/O's. It remains difficult to transfer the patient. There remain several concerns regarding her ability to return home notably debility and limited mobility as well as need for wound care. Review of Systems Review of Systems: All systems reviewed & are unremarkable except as noted in HPI & below Physical Exam Constitutional: + morbidly obese and + frail appearing; no acute distress Eyes: no scleral abnormality and no corneal abnormality ENMT: Mouth: no oral mucosal abnormality and oral mucous membranes not dry Neck: normal visual inspection and trachea midline Respiratory: normal respiratory effort Auscultation: lungs clear to auscultation bilaterally and + diminished lung sounds Cardiovascular: Rate/Rhythm: + irregularly irregular Heart Sounds: normal S1, normal S2 and + murmur Extremities: + edema (4+ persistent dependent edema notably in the thighs extending into the abd.) Musculoskeletal: Extremities: no cyanosis and no clubbing Skin: Shins wrapped. Chronic stasis changes BL LE. No erythema or signs of cellulitis appreciated on limited exam. Neurologic: Motor/Sensory: no tremor and no asterixis Psychiatric: Orientation: alert and oriented x 3 Results & Data Vital Signs (Past 12 Hours) Vital Signs Temp Pulse Pulse Resp BP Pulse Ox Pulse Ox 07/02/23 08:08 36.5 C 69 18 122/68 91 07/02/23 07:18 68 18 90 07/02/23 03:25 36.4 C L 78 18 130/74 94 07/02/23 03:04 93 07/02/23 00:02 36.4 C L 79 23 132/74 92 07/01/23 23:24 83 O2 Del Method O2 Del Method 07/02/23 08:08 Room Air 07/02/23 07:18 Room Air 07/02/23 03:25 Room Air 07/02/23 03:04 Room Air 07/02/23 00:02 Room Air 07/01/23 23:24 Laboratory Results Laboratory Results - last 24 hr 07/01/23 07/01/23 07/01/23 11:15 16:20 20:43 Sodium Potassium Chloride Carbon Dioxide Anion Gap BUN Creatinine Est Cr Clr Drug Dosing Est GFR ( Amer) Est GFR (Non-Af Amer) BUN/Creatinine Ratio Glucose POC Glucose 113 H 107 H 107 H Calcium Phosphorus Albumin 07/02/23 07/02/23 06:12 07:45 Sodium 136 Potassium 4.8 Chloride 102 Carbon Dioxide 29 Anion Gap 5 BUN 55 H Creatinine 1.49 H Est Cr Clr Drug Dosing 38.5 Est GFR ( Amer) 39.1 Est GFR (Non-Af Amer) 33.8 BUN/Creatinine Ratio 36.9 H Glucose 96 POC Glucose 90 Calcium 8.2 L Phosphorus 2.9 Albumin 3.0 L PG Care Time/CCT Total # of Minutes Spent Total Time Spent with Patient: Total time spent is greater than 50% in coordination of care (as documented) at patient's floor/unit and/or counseling patient: Coding Level of Care Code 05565 SUB INP/OBS CARE 3/50MIN Diagnoses Acute kidney injury N17.9 History of kidney transplant Z94.0 Hypervolemia E87.70 Proteinuria R80.9
--- NOTE | 2023-07-02 20:09 | Hospitalist Progress Note ---
Date of Service July 02, 2023 Assessment & Plan (1) Volume overload: Plan: volume overload 2nd to chronic kidney disease of her transplant kidney. cont to improve. net negative about 1 to 1.5 liters each day. responding nicely to lasix 120mg IV BID. she is down at least 10 L since admission. O2 sats wnl and renal function remains stable in setting of diuresis. suspect we are getting closer to euvolemia. [facility] managing her diuretics. Cr stable today at 1.49. Prior echo - 03/2023 - preserved EF, moderate pulmonary HTN seen, normal valve function otherwise. Appreciate Dr Collins's assistance. BMP daily. (2) Pulmonary edema: Plan: Improving. Dyspnea improved. Lung exam better. 2nd to SHERLYN in the setting of her renal transplant status. Cont diuresis with lasix 120mg IV BID. See #1 above. (3) Kidney transplant recipient: Plan: [facility] remains on: * tacrolimus 0.5mg BID * mycophenolate 250mg BID Tacrolimus level 11.[address] Giraldo, [facility], spoke with her transplant team in [place] earlier this week - no plans for biopsy of the renal transplant at this time. (4) Atrial fibrillation: Plan: Cont Eliquis 5mg BID Diltiazem could be contributing to edema. Will try to wean off. Thus, lowered diltiazem to 120mg daily. Increased metoprolo laura 50mg BID Rates remain controlled (5) Acute kidney injury: Plan: improved peak Cr 1.9 now 1.49 bmp in am (6) Diabetic peripheral neuropathy associated with type 2 diabetes mellitus: Plan: Hba1c <6% this admission BSGs have been tightly controlled entire stay Cont to HOLD lantus Cont loose SSI with novolog (7) HLD (hyperlipidemia): Plan: Cont simvastatin 20mg daily (8) HTN (hypertension): Plan: LORRAINE on hold due to SHERLYN Remains on diltiazem, metoprolol, and lasix BPs controlled see above RE: diltiazem & metoprolol (9) Hypothyroidism: Plan: all TSH levels dating back to 2021 have been high suggesting decompensated hypothyroidism is on synthroid 100mcg daily 06/08/23 - dose increased from 88mcg to 100mcg will need repeat TSH in late June (10) Monoclonal gammopathy: Plan: appreciate heme/onc consultation known monoclonal gammopathy of renal significance renal transplant bx deferred at this time (11) Polycystic kidney disease: Plan: original kidney disease condition that led to her transplant (12) Wound of right lower extremity: Plan: worse corresponded with the wound care clinic yesterday -- cont aquacel silver, ABDs, then kerlix dressings ELEVATE the legs would benefit from tubigrips but none available until Tuesday venous ulcers 2nd to severe edema place optifoams on left monzon (mild weeping from that leg as well) (13) Morbid obesity with BMI of 40.0-44.9, adult: Plan: BMI 41 Plan DVT proph - eliquis cont PT, OT will need rehab post-d/c progressing nicely left message for pt's on his voicemail again this evening Admission and Anticipated Discharge Date Admission Date: June 22, 2023 Subjective no changes overnight she feels good resting in the recliner chair during my visit eating well nurses continue to do dressing changes to b/l shins considerable weeping continues but the overall edema is better mild soreness over the right monzon ulceration tele - rate controlled a.fib Review of Systems Review of Systems: cv - no cp, orthopnea or PND pulm - no cough GI - no pain/nausea/emesis - wheatley remains in place; we did discuss removal of such and risk of UTI with ongoing use psych - slept very well last pm with melatonin Physical Exam Physical Exam: gen - obese, NAD, laying in recliner neck - mild JVD resolved heart - irregularly irregular, s1 s2, 2/6 ORTEGA LUSB, rate <100 lungs - minimal rales bases; airation has improved in the bases; no wheeze abd - distended with body wall edema but MUCH improved; nontender, BS+; midline hernia present - reducible ext - edema legs (<1+ on right, <1+ on left); edema of left arm much improved; pulses feet 2+ b/l psych - a/o x 3 skin - severe venous stasis changes b/l legs; right monzon - venous ulceration with large area of denuded skin, large portion of that area with beefy red underlying dermis; serous drainage; early necrotic skin in medial portion of this skin tear; no purulence; large papule on the right monzon as well; left monzon - I did not remove those dressings today Results & Data Results & Data Vital Signs (Past 12 Hours) Vital Signs Temp Pulse Resp BP Pulse Ox O2 Del Method 07/02/23 19:33 36.5 C 72 19 131/78 97 Room Air 07/02/23 19:07 94 H 16 94 Room Air 07/02/23 15:48 36.3 C L 71 18 130/82 94 Room Air 07/02/23 15:14 72 18 95 Room Air 07/02/23 11:43 36.5 C 69 20 106/64 93 Room Air 07/02/23 11:29 70 18 92 Room Air Laboratory Results Laboratory Results 07/01/23 07/01/23 07/01/23 11:15 16:20 20:43 WBC RBC Hgb Hct MCV MCH MCHC RDW Std Deviation RDW Coeff of Lidya Plt Count Sodium Potassium Chloride Carbon Dioxide Anion Gap BUN Creatinine Est Cr Clr Drug Dosing Est GFR ( Amer) Est GFR (Non-Af Amer) BUN/Creatinine Ratio Glucose POC Glucose 113 H 107 H 107 H Calcium Phosphorus Albumin 07/02/23 07/02/23 07/02/23 06:12 07:45 11:25 WBC RBC Hgb Hct MCV MCH MCHC RDW Std Deviation RDW Coeff of Lidya Plt Count Sodium 136 Potassium 4.8 Chloride 102 Carbon Dioxide 29 Anion Gap 5 BUN 55 H Creatinine 1.49 H Est Cr Clr Drug Dosing 38.5 Est GFR ( Amer) 39.1 Est GFR (Non-Af Amer) 33.8 BUN/Creatinine Ratio 36.9 H Glucose 96 POC Glucose 90 125 H Calcium 8.2 L Phosphorus 2.9 Albumin 3.0 L PG Care Time/CCT Total # of Minutes Spent Total Time Spent with Patient: Total time spent is greater than 50% in coordination of care (as documented) at patient's floor/unit and/or counseling patient: Coding Level of Care Code 00021 SUB INP/OBS CARE 2/35MIN Diagnoses Volume overload E87.70 Pulmonary edema J81.1 Kidney transplant recipient Z94.0 Atrial fibrillation I48.91 Acute kidney injury N17.9 Diabetic peripheral neuropathy associated with type 2 diabetes mellitus E11.42 HLD (hyperlipidemia) E78.5 HTN (hypertension) I10 Hypertension type: primary hypertension Hypothyroidism E03.9 Hypothyroidism type: unspecified Monoclonal gammopathy D47.2 Polycystic kidney disease Q61.3 Wound of right lower extremity S81.801A Morbid obesity with BMI of 40.0-44.9, adult E66.01; Z68.41 (8) HTN (hypertension) Hypertension type: primary hypertension Qualified Code(s): I10 - Essential (primary) hypertension (9) Hypothyroidism Hypothyroidism type: unspecified Qualified Code(s): E03.9 - Hypothyroidism, unspecified
[2023-07-02] MEDS: SIMVASTATIN 20 MG TAB PO SCH (20:28)
[2023-07-02] MEDS: MELATONIN 3 MG TAB PO SCH (20:29)
[2023-07-03] MEDS: LEVOTHYROXINE SODIUM 100 MCG TABLET PO SCH (03:21)
[2023-07-03 07:14] LABS: BUN Creatinine Ratio 36.9 (10-20); Calcium 8.3 mg/dl (8.6-10.3); Creatinine Clr Calc Pharmacy 40.7 ml/min; Est GFR (African American) 41.8 ml/min; Est GFR (Non-African American) 36.1 ml/min; Phosphorus 3.1 mg/dl (2.5-4.9)
[2023-07-03] MEDS: ALBUTEROL HFA 8 GM INHALER INH SCH ×4 (07:22→19:47)
[2023-07-03] MEDS: INSULIN ASPART PER UNIT CHARGE SC SCH ×4 (07:46→21:14)
[2023-07-03 07:52] LABS: Hematocrit (blood only) 38.9 % (37.0-47.0); Hemoglobin 13.2 g/dl (12.0-16.0); Mean Corpuscular Hemoglobin 31.5 pg (25.0-34.0); Mean Corpuscular Hgb Conc 33.9 g/dL (32.0-36.0); Mean Corpuscular Volume 92.8 fL (80.0-100.0); Platelet Count 97 K/uL (130-400); RDW Coefficient of Variation 19.8 % (11.5-14.5); RDW Standard Deviation 66.4 fL (36.4-46.3); Red Blood Count 4.19 M/uL (4.20-5.40); White Blood Count 5.81 K/ul (4.8-10.8)
[2023-07-03] MEDS: dilTIAZem HCL 120 MG CAPCR PO SCH (08:19)
[2023-07-03] MEDS: FAMOTIDINE 20 MG TAB PO SCH ×2 (08:19→20:49)
[2023-07-03] MEDS: allopurinoL 300 MG TAB PO SCH (08:19)
[2023-07-03] MEDS: FUROSEMIDE 40 MG TAB PO SCH ×2 (08:19→16:53)
[2023-07-03] MEDS: FOLIC ACID 1 MG TAB PO SCH (08:19)
[2023-07-03] MEDS: APIXABAN 5 MG TABLET PO SCH ×2 (08:19→20:48)
[2023-07-03] MEDS: OMEGA-3 (PURIFIED FISH OIL) 1 GM CAP PO SCH ×2 (08:19→20:49)
[2023-07-03] MEDS: METOPROLOL TARTRATE 50 MG TAB PO SCH ×2 (08:20→20:49)
[2023-07-03] MEDS: MULTIVITAMIN TAB PO SCH (08:20)
[2023-07-03] MEDS: MYCOPHENOLATE MOFETIL 250 MG CAP PO SCH ×2 (08:20→20:50)
[2023-07-03] MEDS: MAGNESIUM OXIDE 400 MG TAB PO SCH ×2 (08:20→20:49)
[2023-07-03] MEDS: TACROLIMUS 0.5 MG CAP PO SCH ×2 (08:20→20:50)
--- NOTE | 2023-07-03 11:36 | Nephrology Progress Note ---
Date of Service July 03, 2023 Assessment & Plan (1) Acute kidney injury: Plan: Non-oliguric. Creatinine improved to baseline. Volume status continues to improve. Electrolytes acceptable. Lisinopril has been held but consideration may be given to restarting. I opted to continue to hold for now pending additional monitoring given hypotension. Kitchen catheter to be removed. Medications are appropriately dosed for kidney function. Repeat metabolic profile tomorrow AM. 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 Baseline creatinine ~1.5 mg/dL. A3 prote inuria (536 mg on 24 hour collection). 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 Tacro has been limited to 0.5 mg BID. Trough remains ~10. Continue Cellcept 250 mg BID. Lisinopril has been held. 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 Followed by hematology at [facility]. Non- nephrotic proteinuria, kidney function improving, overall clinical improvement, UPEP not compelling at this time and follow up allograft biopsy has been deferred. (3) Hypervolemia: Plan: Improving with furosemide 120 mg PO BID. Continue current Rx. Had been maintained on Torsemide at home. Low sodium diet. Feet elevation. TTE with normal LVEF and moderate MR. Elevated RVSP. (4) Proteinuria: Plan: Lisinopril held due to SHERLYN. No biopsy at this time. PLA2r negative in the past. Repeat testing pending. Admission and Anticipated Discharge Date Admission Date: June 22, 2023 Subjective No acute events overnight. Delmi was out of bed to her recliner. She feel well. Edema continues to improve. She continues to report good strength. She does not feel that rehab will be necessary but she expressed that she would be agreeable to return to rehab. Appetite is good. She denies pain. LE wounds are dressed. She notes that weeping on the dressings is improving. No fevers or chills. Delmi is breathing comfortably. Review of Systems Review of Systems: All systems reviewed & are unremarkable except as noted in HPI & below Physical Exam Constitutional: + morbidly obese and + frail appearing; no acute distress Eyes: no scleral abnormality and no corneal abnormality ENMT: Mouth: no oral mucosal abnormality and oral mucous membranes not dry Neck: normal visual inspection and trachea midline Respiratory: normal respiratory effort Auscultation: lungs clear to auscultation bilaterally Cardiovascular: Rate/Rhythm: + irregularly irregular Heart Sounds: normal S1, normal S2 and + murmur Extremities: + edema (3-4+ edema notably in the thighs extending into the abd. and L>R UE) and + AV fistula Musculoskeletal: Extremities: no cyanosis and no clubbing Neurologic: Motor/Sensory: no tremor and no asterixis Psychiatric: Orientation: alert and oriented x 3 Results & Data Vital Signs (Past 12 Hours) Vital Signs Temp Pulse Resp BP Pulse Ox Pulse Ox O2 Del Method 07/03/23 09:37 Room Air 07/03/23 07:58 36.4 C L 63 20 100/63 96 Room Air 07/03/23 07:22 66 18 93 Room Air 07/03/23 03:40 36.5 C 74 16 115/66 90 Room Air 07/03/23 03:40 90 07/03/23 00:13 36.4 C L 74 17 122/67 91 Room Air O2 Del Method 07/03/23 09:37 07/03/23 07:58 07/03/23 07:22 07/03/23 03:40 07/03/23 03:40 Room Air 07/03/23 00:13 Laboratory Results Laboratory Results - last 24 hr 07/02/23 07/02/23 07/03/23 16:15 20:39 06:06 WBC 5.81 RBC 4.19 L Hgb 13.2 Hct 38.9 MCV 92.8 MCH 31.5 MCHC 33.9 RDW Std Deviation 66.4 H RDW Coeff of Lidya 19.8 H Plt Count 97 L Sodium Potassium Chloride Carbon Dioxide Anion Gap BUN Creatinine Est Cr Clr Drug Dosing Est GFR ( Amer) Est GFR (Non-Af Amer) BUN/Creatinine Ratio Glucose POC Glucose 96 102 H Calcium Phosphorus Albumin 07/03/23 07/03/23 07/03/23 06:06 07:28 11:21 WBC RBC Hgb Hct MCV MCH MCHC RDW Std Deviation RDW Coeff of Lidya Plt Count Sodium 138 Potassium 5.0 Chloride 104 Carbon Dioxide 29 Anion Gap 5 BUN 52 H Creatinine 1.41 H Est Cr Clr Drug Dosing 40.7 Est GFR ( Amer) 41.8 Est GFR (Non-Af Amer) 36.1 BUN/Creatinine Ratio 36.9 H Glucose 96 POC Glucose 91 109 H Calcium 8.3 L Phosphorus 3.1 Albumin 3.0 L PG Care Time/CCT Total # of Minutes Spent Total Time Spent with Patient: Total time spent is greater than 50% in coordination of care (as documented) at patient's floor/unit and/or counseling patient: Coding Level of Care Code 97404 SUB INP/OBS CARE 3/50MIN Diagnoses Acute kidney injury N17.9 History of kidney transplant Z94.0 Hypervolemia E87.70 Proteinuria R80.9
--- NOTE | 2023-07-03 20:15 | Hospitalist Progress Note ---
Date of Service July 03, 2023 Assessment & Plan (1) Volume overload: Plan: volume overload 2nd to chronic kidney disease of her transplant kidney. cont to improve with stable renal function of her transplant. net negative about 1 to 1.5 liters each day. responding nicely to lasix 120mg BID. suspect we are close to euvolemia. [facility] [place] managing her diuretics. Cr stable today at 1.41. Prior echo - 03/2023 - preserved EF, moderate pulmonary HTN seen, normal valve function otherwise. Appreciate Dr Collins's assistance. BMP daily. (2) Pulmonary edema: Plan: Improving. Dyspnea improved. Lung exam better. 2nd to SHERLYN in the setting of her renal transplant status. Cont diuresis with lasix 120mg BID. See #1 above. (3) Kidney transplant recipient: Plan: [facility] remains on: * tacrolimus 0.5mg BID * mycophenolate 250mg BID Tacrolimus level 11.[address] Giraldo, [facility], spoke with her transplant team in [place] earlier this week - no plans for biopsy of the renal transplant at this time. (4) Atrial fibrillation: Plan: Cont Eliquis 5mg BID Diltiazem could be contributing to edema. Will try to wean off. Thus, lowered diltiazem to 120mg daily. Increased metoprolol 50mg BID Rates remain controlled If rates are controlled overnight consider stopping diltiazem (5) Acute kidney injury: Plan: improved peak Cr 1.9 now 1.41 bmp in am (6) Diabetic peripheral neuropathy associated with type 2 diabetes mellitus: Plan: Hba1c <6% this admission BSGs have been tightly controlled entire stay Cont to HOLD lantus Cont loose SSI with novolog (7) HLD (hyperlipidemia): Plan: Cont simvastatin 20mg daily (8) HTN (hypertension): Plan: LORRAINE on hold due to SHERLYN Remains on diltiazem, metoprolol, and lasix BPs controlled see above RE: diltiazem & metoprolol (9) Hypothyroidism: Plan: all TSH levels dating back to 2021 have been high suggesting decompensated hy pothyroidism is on synthroid 100mcg daily 06/08/23 - dose increased from 88mcg to 100mcg will need repeat TSH in late June (10) Monoclonal gammopathy: Plan: appreciate heme/onc consultation known monoclonal gammopathy of renal significance renal transplant bx deferred at this time (11) Polycystic kidney disease: Plan: original kidney disease condition that led to her transplant (12) Wound of right lower extremity: Plan: worse corresponded with the wound care clinic on Tuesday pm -- cont aquacel silver, ABDs, then kerlix dressings ELEVATE the legs would benefit from tubigrips but none available until Tuesday venous ulcers 2nd to severe edema the right monzon ulcer will need debridement appreciate wound care team assistance (13) Morbid obesity with BMI of 40.0-44.9, adult: Plan: BMI 40 Plan DVT proph - eliquis cont PT, OT will need rehab post-d/c progressing nicely left message for pt's on his voicemail again this left message for pt's daughter this pm Admission and Anticipated Discharge Date Admission Date: June 22, 2023 Subjective pt w/o any new complaints slept well again overnight eating well legs are sore - especially right - due to ulceration per nursing the serous fluid weeping is improved from both legs tele - a.fib, rates well controlled Review of Systems Review of Systems: cv - no chest pain, no orthopnea, edema of legs resolved GI - no nausea/emesis pulm - no dyspnea; MENDOZA resolved Physical Exam Physical Exam: gen - obese, NAD, laying in recliner neck - mild JVD resolved heart - irregularly irregular, s1 s2, 2/6 ORTEGA LUSB, rate <100 lungs - minimal rales bases; good airation; no wheeze abd - distended with body wall edema but MUCH improved; nontender, BS+; midline hernia present - reducible ext - resolved edema of legs; pulses feet 2+ b/l psych - a/o x 3 skin - severe venous stasis changes b/l legs; dressings intact b/l shins (I did not remove these today) Results & Data Results & Data Vital Signs (Past 12 Hours) Vital Signs Temp Pulse Pulse Resp BP Pulse Ox O2 Del Method 07/03/23 19:54 36.5 C 69 91 H 22 128/73 91 Room Air 07/03/23 19:47 75 18 92 Room Air 07/03/23 15:58 36.4 C L 68 20 123/67 94 Room Air 07/03/23 14:50 78 18 96 Room Air 08/06/23 11:49 36.5 C 70 18 117/63 95 Room Air 07/03/23 11:48 76 18 94 Room Air 07/03/23 09:37 Room Air Laboratory Results Laboratory Results - last 24 hr 07/02/23 07/03/23 07/03/23 20:39 06:06 06:06 WBC 5.81 RBC 4.19 L Hgb 13.2 Hct 38.9 MCV 92.8 MCH 31.5 MCHC 33.9 RDW Std Deviation 66.4 H RDW Coeff of Lidya 19.8 H Plt Count 97 L Sodium 138 Potassium 5.0 Chloride 104 Carbon Dioxide 29 Anion Gap 5 BUN 52 H Creatinine 1.41 H Est Cr Clr Drug Dosing 40.7 Est GFR ( Amer) 41.8 Est GFR (Non-Af Amer) 36.1 BUN/Creatinine Ratio 36.9 H Glucose 96 POC Glucose 102 H Calcium 8.3 L Phosphorus 3.1 Albumin 3.0 L 07/03/23 07/03/23 07/03/23 07:28 11:21 16:24 WBC RBC Hgb Hct MCV MCH MCHC RDW Std Deviation RDW Coeff of Lidya Plt Count Sodium Potassium Chloride Carbon Dioxide Anion Gap BUN Creatinine Est Cr Clr Drug Dosing Est GFR ( Amer) Est GFR (Non-Af Amer) BUN/Creatinine Ratio Glucose POC Glucose 91 109 H 94 Calcium Phosphorus Albumin PG Care Time/CCT Total # of Minutes Spent Total Time Spent with Patient: Total time spent is greater than 50% in coordination of care (as documented) at patient's floor/unit and/or counseling patient: Coding Level of Care Code 06626 SUB INP/OBS CARE 1/25MIN Diagnoses Volume overload E87.70 Pulmonary edema J81.1 Kidney transplant recipient Z94.0 Atrial fibrillation I48.91 Acute kidney injury N17.9 Diabetic peripheral neuropathy associated with type 2 diabetes mellitus E11.42 HLD (hyperlipidemia) E78.5 HTN (hypertension) I10 Hypertension type: primary hypertension Hypothyroidism E03.9 Hypothyroidism type: unspecified Monoclonal gammopathy D47.2 Polycystic kidney disease Q61.3 Wound of right lower extremity S81.801A Morbid obesity with BMI of 40.0-44.9, adult E66.01; Z68.41 (8) HTN (hypertension) Hypertension type: primary hypertension Qualified Code(s): I10 - Essential (primary) hypertension (9) Hypothyroidism Hypothyroidism type: unspecified Qualified Code(s): E03.9 - Hypothyroidism, unspecified
[2023-07-03] MEDS: MELATONIN 3 MG TAB PO SCH (20:49)
[2023-07-03] MEDS: SIMVASTATIN 20 MG TAB PO SCH (20:50)
[2023-07-04] MEDS: LEVOTHYROXINE SODIUM 100 MCG TABLET PO SCH (06:27)
[2023-07-04] MEDS: ALBUTEROL HFA 8 GM INHALER INH SCH ×4 (06:56→19:01)
[2023-07-04 07:13] LABS: Hematocrit (blood only) 38.8 % (37.0-47.0); Mean Corpuscular Hemoglobin 31.3 pg (25.0-34.0); Mean Corpuscular Hgb Conc 33.5 g/dL (32.0-36.0); Mean Corpuscular Volume 93.5 fL (80.0-100.0); Platelet Count 100 K/uL (130-400); Platelet Estimate Decreased (Normal); RDW Coefficient of Variation 19.9 % (11.5-14.5); RDW Standard Deviation 67.7 fL (36.4-46.3); Red Blood Count 4.15 M/uL (4.20-5.40); White Blood Count 5.87 K/ul (4.8-10.8)
[2023-07-04 07:24] LABS: Anion Gap 4 (3-11); BUN Creatinine Ratio 33.1 (10-20); Blood Urea Nitrogen 50 mg/dl (6-23); Calcium 8.5 mg/dl (8.6-10.3); Carbon Dioxide 30 mmol/L (21-32); Chloride 104 mmol/L (98-107); Creatinine Clr Calc Pharmacy 37.7 ml/min; Est GFR (African American) 38.5 ml/min; Est GFR (Non-African American) 33.2 ml/min; Glucose 85 mg/dl (70-99(Fasting)); Phosphorus 3.4 mg/dl (2.5-4.9); Sodium 138 mmol/L (136-145)
[2023-07-04] MEDS: INSULIN ASPART PER UNIT CHARGE SC SCH ×4 (08:17→20:42)
[2023-07-04] MEDS: allopurinoL 300 MG TAB PO SCH (08:22)
[2023-07-04] MEDS: TACROLIMUS 0.5 MG CAP PO SCH ×2 (08:23→20:40)
[2023-07-04] MEDS: MAGNESIUM OXIDE 400 MG TAB PO SCH ×2 (08:23→20:39)
[2023-07-04] MEDS: METOPROLOL TARTRATE 50 MG TAB PO SCH ×2 (08:23→20:39)
[2023-07-04] MEDS: MYCOPHENOLATE MOFETIL 250 MG CAP PO SCH ×2 (08:23→20:39)
[2023-07-04] MEDS: OMEGA-3 (PURIFIED FISH OIL) 1 GM CAP PO SCH ×2 (08:24→20:39)
[2023-07-04] MEDS: dilTIAZem HCL 120 MG CAPCR PO SCH (08:24)
[2023-07-04] MEDS: FAMOTIDINE 20 MG TAB PO SCH ×2 (08:24→20:38)
[2023-07-04] MEDS: FUROSEMIDE 40 MG TAB PO SCH ×2 (08:24→17:23)
[2023-07-04] MEDS: APIXABAN 5 MG TABLET PO SCH ×2 (08:24→20:38)
[2023-07-04] MEDS: FOLIC ACID 1 MG TAB PO SCH (08:24)
[2023-07-04] MEDS: MULTIVITAMIN TAB PO SCH (08:25)
--- NOTE | 2023-07-04 12:06 | Nephrology Progress Note ---
Date of Service July 04, 2023 Assessment & Plan (1) Acute kidney injury: Plan: Non-oliguric. Creatinine improved to baseline. Volume status continues to improve. Electrolytes acceptable. Lisinopril has been held. I opted to continue to hold for now pending additional monitoring BP remains soft and diuresing aggressively. Medications are appropriately dosed for kidney function. Monitor metabolic profile daily while inpatient. Monitor labs at least weekly at discharge. Outpatient follow up in the nephrology clinic with me should be arranged within 1-2 weeks of discharge. 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 Baseline creatinine ~1.5 mg/dL. A3 proteinuria (536 mg on 24 hour collection). 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 Tacro has been limited to 0.5 mg BID. Trough remains ~10. Continue Cellcept 250 mg BID. Lisinopril has been held. 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 Followed by hematology at [facility]. Non- nephrotic proteinuria, kidney function improving, overall clinical improvement, UPEP not compelling at this time and follow up allograft biopsy has been deferred. (3) Hypervolemia: Plan: Improving with furosemide 120 mg PO BID. Continue current Rx. Low sodium diet. Feet elevation. TTE with normal LVEF and moderate MR. Elevated RVSP. (4) Proteinuria: Plan: Lisinopril held due to SHERLYN. No biopsy at this time. PLA2r negative in the past. Repeat testing pending. Admission and Anticipated Discharge Date Admission Date: June 22, 2023 Subjective No acute events overnight. No complaints this AM. Resting comfortably in recliner. Edema continues to improve. Kitchen removed. No urinary complaints reported. Out of bed with PT this morning. Delmi reports improving strength. Overall, she feels well. Review of Systems Review of Systems: All systems reviewed & are unremarkable except as noted in HPI & below Physical Exam Constitutional: + morbidly obese and + frail appearing; no acute distress Eyes: no scleral abnormality and no corneal abnormality ENMT: Mouth: no oral mucosal abnormality and oral mucous membranes not dry Neck: normal visual inspection and trachea midline Respiratory: normal respiratory effort Auscultation: lungs clear to auscultation bilaterally and + diminished lung sounds Cardiovascular: Rate/Rhythm: + irregularly irregular Heart Sounds: normal S1, normal S2 and + murmur Extremities: + edema (3-4+ edema notably in the thighs extending into the abd. and L>R UE) and + AV fistula Musculoskeletal: Extremities: no cyanosis and no clubbing Neurologic: Motor/Sensory: no tremor and no asterixis Psychiatric: Orientation: alert and oriented x 3 Results & Data Vital Signs (Past 12 Hours) Vital Signs Temp Pulse Pulse Resp BP Pulse Ox O2 Del Method 07/04/23 11:31 36.4 C L 68 18 119/77 95 Room Air 07/04/23 10:23 Room Air 07/04/23 07:53 36.4 C L 74 20 124/72 93 Room Air 07/04/23 07:23 73 07/04/23 06:57 73 18 93 Room Air 07/04/23 03:27 36.5 C 67 18 122/74 91 Room Air Laboratory Results Laboratory Results - last 24 hr 07/03/23 07/03/23 07/04/23 16:24 21:05 05:49 WBC 5.87 RBC 4.15 L Hgb 13.0 Hct 38.8 MCV 93.5 MCH 31.3 MCHC 33.5 RDW Std Deviation 67.7 H RDW Coeff of Lidya 19.9 H Plt Count 100 L Platelet Estimate Decreased L Sodium Potassium Chloride Carbon Dioxide Anion Gap BUN Creatinine Est Cr Clr Drug Dosing Est GFR ( Amer) Est GFR (Non-Af Amer) BUN/Creatinine Ratio Glucose POC Glucose 94 96 Calcium Phosphorus Albumin 07/04/23 07/04/23 07/04/23 05:49 07:34 07:35 WBC RBC Hgb Hct MCV MCH MCHC RDW Std Deviation RDW Coeff of Lidya Plt Count Platelet Estimate Sodium 138 Potassium TNP 5.3 H Chloride 104 Carbon Dioxide 30 Anion Gap 4 BUN 50 H Creatinine 1.51 H Est Cr Clr Drug Dosing 37.7 Est GFR ( Amer) 38.5 Est GFR (Non-Af Amer) 33.2 BUN/Creatinine Ratio 33.1 H Glucose 85 POC Glucose 89 Calcium 8.5 L Phosphorus 3.4 Albumin 3.0 L 07/04/23 11:12 WBC RBC Hgb Hct MCV MCH MCHC RDW Std Deviation RDW Coeff of Lidya Plt Count Platelet Estimate Sodium Potassium Chloride Carbon Dioxide Anion Gap BUN Creatinine Est Cr Clr Drug Dosing Est GFR ( Amer) Est GFR (Non-Af Amer) BUN/Creatinine Ratio Glucose POC Glucose 108 H Calcium Phosphorus Albumin PG Care Time/CCT Total # of Minutes Spent Total Time Spent with Patient: Total time spent is greater than 50% in coordination of care (as documented) at patient's floor/unit and/or counseling patient: Coding Level of Care Code 15762 SUB INP/OBS CARE 3/50MIN Diagnoses Acute kidney injury N17.9 History of kidney transplant Z94.0 Hypervolemia E87.70 Proteinuria R80.9
[2023-07-04] MEDS: MELATONIN 3 MG TAB PO SCH (20:39)
[2023-07-04] MEDS: SIMVASTATIN 20 MG TAB PO SCH (20:40)
--- NOTE | 2023-07-04 20:53 | Hospitalist Progress Note ---
Date of Service July 04, 2023 Assessment & Plan (1) Volume overload: Plan: volume overload 2nd to chronic kidney disease of her transplant kidney. cont to improve with stable renal function of her transplant. responding nicely to lasix 120mg BID. This has been converted to PO. [facility] managing her diuretics. Creatinine remains stable - 1.5 today. Prior echo - 03/2023 - preserved EF, moderate pulmonary HTN seen, normal valve function otherwise. Appreciate Dr Collins's assistance. BMP daily. (2) Pulmonary edema: Plan: Improved/resolved. Dyspnea and MENDOZA improved. Lung exam better. 2nd to SHERLYN in the setting of her renal transplant status. Cont diuresis with lasix 120mg PO BID. See #1 above. (3) Kidney transplant recipient: Plan: [facility] remains on: * tacrolimus 0.5mg BID * mycophenolate 250mg BID Tacrolimus level 11.[address] Giraldo, [facility], spoke with her transplant team in [place] last week - no plans for biopsy of the renal transplant at this time. (4) Atrial fibrillation: Plan: Cont Eliquis 5mg BID Diltiazem could be contributing to edema. Lowered diltiazem to 120mg daily and now will hold moving forward. Increased her metoprolol to 50mg BID Rates remain controlled despite the above changes If rates are controlled overnight will keep off of diltiazem (5) Acute kidney injury: Plan: improved peak Cr 1.9 now 1.5 bmp in am (6) Diabetic peripheral neuropathy associated with type 2 diabetes mellitus: Plan: Hba1c <6% this admission BSGs have been tightly controlled entire stay Cont to HOLD lantus Cont loose SSI with novolog (7) HLD (hyperlipidemia): Plan: Cont simvastatin 20mg daily (8) HTN (hypertension): Plan: LORRAINE on hold due to SHERLYN and mildly elevated K Remains on diltiazem, metoprolol, and lasix BPs controlled see above RE: diltiazem & metoprolol (9) Hypothyroidism: Plan: all TSH levels dating back to 2021 have been high suggesting decompensated hypothyroidism is on synthroid 100mcg daily 06/08/23 - dose increased from 88mcg to 100mcg will need repeat TSH in late June (10) Monoclonal gammopathy: Plan: appreciate heme/onc consultation known monoclonal gammopathy of renal significance renal transplant bx deferred at this time (11) Polycystic kidney disease: Plan: original kidney disease condition that led to her transplant (12) Wound of right lower extremity: Plan: worse cont aquacel silver, ABDs, then kerlix dressings ELEVATE the legs venous ulcer 2nd to severe edema appreciate wound care team assistance will need f/u with Wound Care Clinic post-discharge (13) Morbid obesity with BMI of 40.0-44.9, adult: Plan: BMI 40 (14) Thrombocytopenia: Plan: chronic stable (15) Hyperkalemia: Plan: minimal but will change diet to LOW K diet bmp am cont lasix Plan DVT proph - eliquis cont PT, OT will need rehab post-d/c - referrals have been sent - is medically ready for discharge progressing nicely left message for pt's on his voicemail 2x over last week left message for pt's daughter yesterday pm Admission and Anticipated Discharge Date Admission Date: June 22, 2023 Subjective no events overnight denies any new complaints wheatley removed this am; voiding w/o LUTS denies dyspnea eating well tele - afib, rates <100 Review of Systems Review of Systems: cv - edema resolved; no cp, no orthopnea, no PND pulm - no cough, no dyspnea GI - still a little bloated but no pain; no nausea/emesis Physical Exam Physical Exam: gen - obese, NAD, laying in recliner neck - no JVD heart - irregularly irregular, s1 s2, 2/6 ORTEGA LUSB, rate <100 lungs - minimal rales bases, worse on left; good airation; no wheeze abd - body wall edema but MUCH improved from prior exams; nontender, BS+; reducible midline hernia ext - no edema of legs; pulses feet 2+ b/l psych - a/o x 3 skin - severe venous stasis changes b/l legs; dressings intact b/l shins Results & Data Results & Data Vital Signs (Past 12 Hours) Vital Signs Temp Pulse Pulse Resp BP Pulse Ox O2 Del Method 07/04/23 19:34 36.5 C 82 18 120/68 96 Room Air 07/04/23 19:07 86 16 93 Room Air 07/04/23 15:35 36.5 C 79 18 150/74 H 91 Room Air 07/04/23 14:10 75 07/04/23 15:18 79 18 91 Room Air 07/04/23 12:03 78 18 94 Room Air 07/04/23 11:31 36.4 C L 68 18 119/77 95 Room Air 07/04/23 10:23 Room Air Laboratory Results Laboratory Results - last 24 hr 07/03/23 07/04/23 07/04/23 21:05 05:49 05:49 WBC 5.87 RBC 4.15 L Hgb 13.0 Hct 38.8 MCV 93.5 MCH 31.3 MCHC 33.5 RDW Std Deviation 67.7 H RDW Coeff of Lidya 19.9 H Plt Count 100 L Platelet Estimate Decreased L Sodium 138 Potassium TNP Chloride 104 Carbon Dioxide 30 Anion Gap 4 BUN 50 H Creatinine 1.51 H Est Cr Clr Drug Dosing 37.7 Est GFR ( Amer) 38.5 Est GFR (Non-Af Amer) 33.2 BUN/Creatinine Ratio 33.1 H Glucose 85 POC Glucose 96 Calcium 8.5 L Phosphorus 3.4 Albumin 3.0 L 07/04/23 07/04/23 07/04/23 07:34 07:35 11:12 WBC RBC Hgb Hct MCV MCH MCHC RDW Std Deviation RDW Coeff of Lidya Plt Count Platelet Estimate Sodium Potassium 5.3 H Chloride Carbon Dioxide Anion Gap BUN Creatinine Est Cr Clr Drug Dosing Est GFR ( Amer) Est GFR (Non-Af Amer) BUN/Creatinine Ratio Glucose POC Glucose 89 108 H Calcium Phosphorus Albumin 07/04/23 07/04/23 16:13 20:05 WBC RBC Hgb Hct MCV MCH MCHC RDW Std Deviation RDW Coeff of Lidya Plt Count Platelet Estimate Sodium Potassium Chloride Carbon Dioxide Anion Gap BUN Creatinine Est Cr Clr Drug Dosing Est GFR ( Amer) Est GFR (Non-Af Amer) BUN/Creatinine Ratio Glucose POC Glucose 115 H 92 Calcium Phosphorus Albumin PG Care Time/CCT Total # of Minutes Spent Total Time Spent with Patient: Total time spent is greater than 50% in coordination of care (as documented) at patient's floor/unit and/or counseling patient: Coding Level of Care Code 54496 SUB INP/OBS CARE 2/35MIN Diagnoses Volume overload E87.70 Pulmonary edema J81.1 Kidney transplant recipient Z94.0 Atrial fibrillation I48.91 Acute kidney injury N17.9 Diabetic peripheral neuropathy associated with type 2 diabetes mellitus E11.42 HLD (hyperlipidemia) E78.5 HTN (hypertension) I10 Hypertension type: primary hypertension Hypothyroidism E03.9 Hypothyroidism type: unspecified Monoclonal gammopathy D47.2 Polycystic kidney disease Q61.3 Wound of right lower extremity S81.801A Morbid obesity with BMI of 40.0-44.9, adult E66.01; Z68.41 Thrombocytopenia D69.6 Hyperkalemia E87.5 (8) HTN (hypertension) Hypertension type: primary hypertension Qualified Code(s): I10 - Essential (primary) hypertension (9) Hypothyroidism Hypothyroidism type: unspecified Qualified Code(s): E03.9 - Hypothyroidism, unspecified
[2023-07-05 03:51] LABS: Appearance Urine Cloudy (Clear); Bacteria Urine Automated 1+ (Negative); Bilirubin Urine Negative (Negative); Blood Urine 1+ (Negative); Color Urine Yellow; Epithelial Cell Urine Auto 0-5 /lpf (0-5); Glucose Urine UA Negative (Negative); Ketones Urine Negative (Negative); Leukocyte Esterase Urine 3+ (Negative); Nitrite Urine Negative (Negative); Protein Urine 2+ (Negative); Urobilinogen Urine Negative (Negative); WBC Urine Automated >30 /hpf (0-5)
--- NOTE | 2023-07-05 04:55 | Communication Note ---
Date of Service: July 05, 2023 Overnight I was notified patient was having urinary frequency and dysuria. UA was obtained and does appear infectious. Likely uncomplicated as patient not septic. She did have her wheatley removed yesterday. She has h/o pseudomonal and enterococcal UTI. Started patient on ampicillin and cefepime for treatment. Await cx/sensitivities. Resident Activity Tracking Resident Involvement: Resident Care Provided Care Provided: Adult [facility] Medicine
[2023-07-05] MEDS ORDERED: CEFEPIME 1,000 MG in SYRINGE 0 ML IV SCH (05:30)
[2023-07-05] MEDS: AMPICILLIN 1,000 MG in SODIUM CHLOR 0.9% AD-VAN 50 ML IV SCH ×2 (05:40→13:45)
[2023-07-05] MEDS: LEVOTHYROXINE SODIUM 100 MCG TABLET PO SCH (05:41)
[2023-07-05] MEDS: ALBUTEROL HFA 8 GM INHALER INH SCH ×4 (06:58→19:16)
[2023-07-05 07:02] LABS: BUN Creatinine Ratio 33.1 (10-20); Creatinine Clr Calc Pharmacy 36.5 ml/min; Est GFR (African American) 37.6 ml/min; Est GFR (Non-African American) 32.4 ml/min; Potassium 5.3 mmol/L (3.5-5.1)
[2023-07-05] MEDS: INSULIN ASPART PER UNIT CHARGE SC SCH ×4 (07:48→21:27)
[2023-07-05] MEDS: MAGNESIUM OXIDE 400 MG TAB PO SCH ×2 (08:09→21:25)
[2023-07-05] MEDS: MULTIVITAMIN TAB PO SCH (08:09)
[2023-07-05] MEDS: METOPROLOL TARTRATE 50 MG TAB PO SCH ×2 (08:09→21:25)
[2023-07-05] MEDS: FUROSEMIDE 40 MG TAB PO SCH (08:09)
[2023-07-05] MEDS: MYCOPHENOLATE MOFETIL 250 MG CAP PO SCH ×2 (08:09→21:25)
[2023-07-05] MEDS: TACROLIMUS 0.5 MG CAP PO SCH ×2 (08:09→21:25)
[2023-07-05] MEDS: OMEGA-3 (PURIFIED FISH OIL) 1 GM CAP PO SCH ×2 (08:10→21:24)
[2023-07-05] MEDS: FOLIC ACID 1 MG TAB PO SCH (08:10)
[2023-07-05] MEDS: allopurinoL 300 MG TAB PO SCH (08:10)
[2023-07-05] MEDS: APIXABAN 5 MG TABLET PO SCH ×2 (08:10→21:24)
[2023-07-05] MEDS: FAMOTIDINE 20 MG TAB PO SCH ×2 (08:10→21:24)
[2023-07-05] MEDS: FUROSEMIDE 80 MG TAB PO SCH ×2 (08:58→17:44)
--- NOTE | 2023-07-05 09:22 | Hospitalist Progress Note ---
Date of Service July 05, 2023 Assessment & Plan (1) Volume overload: Plan: Hypervolemia with Hx renal transplant and SHERLYN this admission, diuresis with assistance by Nephrology, currently on Lasix 80mg PO BID, negative fluid balance noted Cr now stable and improved at 1.5 Prior echo - 03/2023 - preserved EF, moderate pulmonary HTN, normal valve function otherwise Appreciate Dr Collins's assistance BMP daily (2) Pulmonary edema: Plan: Improved Dyspnea and MENDOZA improved. Lung exam better, not on supplemental O2 2nd to SHERLYN in the setting of her renal transplant status Cont diuresis with lasix 80mg PO BID (3) Kidney transplant recipient: Plan: - [facility] remains on: * tacrolimus 0.5mg BID * mycophenolate 250mg BID Tacrolimus level 11.[address] Giraldo, [facility] [place] [facility], spoke with her transplant team in [place] last week - no plans for biopsy of the renal transplant at this time (4) Atrial fibrillation: Plan: Cont Eliquis 5mg BID Diltiazem could be contributing to edema, therefore have discontinued, continue monitoring HRs Increased metoprolol to 50mg BID (5) Acute kidney injury: Plan: Resolved Peak Cr 1.9, now 1.5 (6) Diabetic peripheral neuropathy associated with type 2 diabetes mellitus: Plan: Hba1c <6% this admission BSGs have been tightly controlled entire stay Cont to HOLD lantus Cont loose SSI with novolog (7) HTN (hypertension): Plan: LORRAINE on hold due to recent SHERLYN and mildly elevated K Remains on metoprolol and Lasix BPs controlled (8) Hypothyroidism: Plan: All TSH levels dating back to 2021 have been high suggesting decompensated hypothyroidism 06/08/23 - dose increased from 88mcg to 100mcg, continue this Will need repeat TSH in late June (9) Monoclonal gammopathy: Plan: Appreciate heme/onc consultation Known monoclonal gammopathy of renal significance Renal transplant bx deferred at this time (10) Wound of right lower extremity: Plan: Cont Aquacel silver, ABDs, then Kerlix dressings Venous ulcer 2nd to severe edema Appreciate wound care team assistance Will need f/u with Wound Care Clinic post-discharge (11) Hyperkalemia: Plan: BMP reviewed, K of 5.3 today Continue low K diet, Lasix, daily BMP (12) UTI (urinary tract infection): Plan: Hx of Pseudomonas and Enterococcal UTI, both sensitive in the past to fluor oquinolones UCx pending Start cipro 400mg BID, adjust dose if necessary for renal function Plan DVT proph - eliquis cont PT, OT will need rehab post-d/c - referrals have been sent - is medically ready for discharge progressing nicely Admission and Anticipated Discharge Date Admission Date: June 22, 2023 Subjective Overnight complaints of dysuria, started on Abx for UTI suspicion. Today no complaints of SOB, chest pain, nausea. Review of Systems Review of Systems: All systems reviewed & are unremarkable except as noted in Subjective Physical Exam Constitutional: + morbidly obese and + frail appearing; no acute distress Respiratory: normal respiratory effort, lungs clear to auscultation Auscultation: lungs clear to auscultation bilaterally Cardiovascular: Rate/Rhythm: + irregularly irregular Heart Sounds: + murmur Extremities: + edema (2+ edema BL LE) and + AV fistula Gastrointestinal (Abdomen): normal bowel sounds, soft, nontender, no hepatosplenomegaly Skin: no rashes, warm and dry Psychiatric: A+Ox3, euthymic affect Results & Data Results & Data Vital Signs (Past 12 Hours) Vital Signs Temp Pulse Pulse Pulse Resp BP Pulse Ox 07/05/23 07:55 36.5 C 80 16 138/89 95 07/05/23 07:20 80 07/05/23 07:01 71 16 97 07/05/23 02:35 36.4 C L 78 18 120/74 92 07/04/23 23:04 72 07/04/23 23:01 36.4 C L 81 20 134/75 93 O2 Del Method 07/05/23 07:55 Room Air 07/05/23 07:20 07/05/23 07:01 Room Air 07/05/23 02:35 Room Air 07/04/23 23:04 07/04/23 23:01 Room Air PG Care Time/CCT Total # of Minutes Spent Total Time Spent with Patient: Total time spent is greater than 50% in coordination of care (as documented) at patient's floor/unit and/or counseling patient: Coding Level of Care Code 32294 SUB INP/OBS CARE 3/50MIN Diagnoses Volume overload E87.70 Pulmonary edema J81.1 Kidney transplant recipient Z94.0 Atrial fibrillation I48.91 Acute kidney injury N17.9 Diabetic peripheral neuropathy associated with type 2 diabetes mellitus E11.42 HTN (hypertension) I10 Hypertension type: primary hypertension Hypothyroidism E03.9 Hypothyroidism type: unspecified Monoclonal gammopathy D47.2 Wound of right lower extremity S81.801A Hyperkalemia E87.5 UTI (urinary tract infection) N39.0 (7) HTN (hypertension) Hypertension type: primary hypertension Qualified Code(s): I10 - Essential (primary) hypertension (8) Hypothyroidism Hypothyroidism type: unspecified Qualified Code(s): E03.9 - Hypothyroidism, unspecified
[2023-07-05] MEDS: ACETAMINOPHEN 325 MG TAB PO PRN (09:41)
--- NOTE | 2023-07-05 10:20 | Nephrology Progress Note ---
Date of Service July 05, 2023 Assessment & Plan (1) Acute kidney injury: Plan: Non-oliguric. Creatinine has returned to baseline and remains stable. Volume status continues to improve. Electrolytes acceptable. Lisinopril has been held. Medications are appropriately dosed for kidney function. Monitor metabolic profile daily while inpatient. Monitor labs at least weekly at discharge. Outpatient follow up in the nephrology clinic with me should be arranged within 1-2 weeks of discharge. 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 Baseline creatinine ~1.5 mg/dL. A3 proteinuria (536 mg on 24 hour collection). 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 Tacro has been limited to 0.5 mg BID. Continue Cellcept 250 mg BID. 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 Followed by hematology at [facility]. Non- nephrotic proteinuria, kidney function improving, overall clinical improvement, UPEP not compelling at this time and follow up allograft biopsy has been deferred. (3) Hypervolemia: Plan: Improving with furosemide 120 mg PO BID. Remains in notably negative fluid balance. Furosemide decreased to 80 mg BID today. Low sodium diet. Feet elevation. TTE with normal LVEF and moderate MR. Elevated RVSP. (4) Proteinuria: Plan: Lisinopril held due to SHERLYN. No biopsy at this time. PLA2r negative in the past. Repeat testing pending. Complement levels pending. Admission and Anticipated Discharge Date Admission Date: June 22, 2023 Codie Awad developed some dysuria and urinary frequency overnight. She did not notice symptoms initially when the catheter was removed. Symptoms were progress starting late in the evening. No fevers or chills. No flank pain. Urine studies were updated. Culture pending. Ampicillin and cefepime started. Symptoms are improving. No hematuria reported. Review of Systems Review of Systems: All systems reviewed & are unremarkable except as noted in HPI & below Physical Exam Constitutional: + morbidly obese and + frail appearing; no acute distress Eyes: no scleral abnormality and no corneal abnormality ENMT: Mouth: no oral mucosal abnormality and oral mucous membranes not dry Neck: normal visual inspection and trachea midline Respiratory: normal respiratory effort Auscultation: lungs clear to auscultation bilaterally Cardiovascular: Rate/Rhythm: + irregularly irregular Heart Sounds: normal S1, normal S2 and + murmur Extremities: + edema (2+ edema BL LE- predominately dependent. L>R UE) and + AV fistula Musculoskeletal: Extremities: no cyanosis and no clubbing Neurologic: Motor/Sensory: no tremor and no asterixis Psychiatric: Orientation: alert and oriented x 3 Results & Data Vital Signs (Past 12 Hours) Vital Signs Temp Pulse Pulse Pulse Resp BP Pulse Ox 07/05/23 07:55 36.5 C 80 16 138/89 95 07/05/23 07:20 80 07/05/23 07:01 71 16 97 07/05/23 02:35 36.4 C L 78 18 120/74 92 07/04/23 23:04 72 07/04/23 23:01 36.4 C L 81 20 134/75 93 O2 Del Method 07/05/23 07:55 Room Air 07/05/23 07:20 07/05/23 07:01 Room Air 07/05/23 02:35 Room Air 07/04/23 23:04 07/04/23 23:01 Room Air Laboratory Results Laboratory Results - last 24 hr 07/04/23 07/04/23 07/04/23 11:12 16:13 20:05 Sodium Potassium Chloride Carbon Dioxide Anion Gap BUN Creatinine Est Cr Clr Drug Dosing Est GFR ( Amer) Est GFR (Non-Af Amer) BUN/Creatinine Ratio Glucose POC Glucose 108 H 115 H 92 Calcium Urine Color Urine Appearance Urine pH Ur Specific [place] Urine Protein Urine Glucose (UA) Urine Ketones Urine Blood Urine Nitrite Urine Bilirubin Urine Urobilinogen Ur Leukocyte Esterase Urine WBC (Auto) Urine RBC (Auto) U Hyaline Cast (Auto) U Epithel Cells (Auto) Urine Bacteria (Auto) Urine Yeast 07/05/23 07/05/23 07/05/23 06:05 07:30 Unknown Sodium 140 Potassium 5.3 H Chloride 104 Carbon Dioxide 30 Anion Gap 6 BUN 51 H Creatinine 1.54 H Est Cr Clr Drug Dosing 36.5 Est GFR ( Amer) 37.6 Est GFR (Non-Af Amer) 32.4 BUN/Creatinine Ratio 33.1 H Glucose 95 POC Glucose 103 H Calcium 9.0 Urine Color Yellow Urine Appearance Cloudy A Urine pH 7.0 Ur Specific [place] 1.010 Urine Protein 2+ H Urine Glucose (UA) Negative Urine Ketones Negative Urine Blood 1+ H Urine Nitrite Negative Urine Bilirubin Negative Urine Urobilinogen Negative Ur Leukocyte Esterase 3+ H Urine WBC (Auto) >30 H Urine RBC (Auto) 5-10 H U Hyaline Cast (Auto) 1-5 U Epithel Cells (Auto) 0-5 Urine Bacteria (Auto) 1+ H Urine Yeast Not Reportable PG Care Time/CCT Total # of Minutes Spent Total Time Spent with Patient: Total time spent is greater than 50% in coordination of care (as documented) at patient's floor/unit and/or counseling patient: Coding Level of Care Code 92782 SUB INP/OBS CARE 3/50MIN Diagnoses Acute kidney injury N17.9 History of kidney transplant Z94.0 Hypervolemia E87.70 Proteinuria R80.9
[2023-07-05] MEDS: CIPROFLOXACIN / D5W 400 MG/200 ML BAG IV SCH (17:44)
[2023-07-05] MEDS ORDERED: CEFEPIME 2,000 MG in SYRINGE 0 ML IV SCH (18:00)
[2023-07-05] MEDS: MELATONIN 3 MG TAB PO SCH (21:25)
[2023-07-06] MEDS: LEVOTHYROXINE SODIUM 100 MCG TABLET PO SCH (06:17)
[2023-07-06] MEDS: CIPROFLOXACIN / D5W 400 MG/200 ML BAG IV SCH (06:17)
[2023-07-06] MEDS: ALBUTEROL HFA 8 GM INHALER INH SCH ×4 (07:22→19:07)
[2023-07-06 07:26] LABS: Hematocrit (blood only) 37.4 % (37.0-47.0); Hemoglobin 12.7 g/dl (12.0-16.0); Mean Corpuscular Hemoglobin 31.5 pg (25.0-34.0); Mean Corpuscular Volume 92.8 fL (80.0-100.0); Mean Platelet Volume 11.6 fL (9.4-12.4); Platelet Count 114 K/uL (130-400); RDW Coefficient of Variation 19.5 % (11.5-14.5); Red Blood Count 4.03 M/uL (4.20-5.40); White Blood Count 5.66 K/ul (4.8-10.8)
[2023-07-06 07:40] LABS: Albumin Level 3.1 gm/dl (3.4-5.0); BUN Creatinine Ratio 31.2 (10-20); Calcium 8.6 mg/dl (8.6-10.3); Creatinine Clr Calc Pharmacy 35.8 ml/min; Est GFR (African American) 36.7 ml/min; Est GFR (Non-African American) 31.7 ml/min; Phosphorus 3.4 mg/dl (2.5-4.9); Potassium 4.6 mmol/L (3.5-5.1)
[2023-07-06] MEDS: MYCOPHENOLATE MOFETIL 250 MG CAP PO SCH ×2 (07:50→20:19)
[2023-07-06] MEDS: TACROLIMUS 0.5 MG CAP PO SCH ×2 (07:51→20:20)
[2023-07-06] MEDS: OMEGA-3 (PURIFIED FISH OIL) 1 GM CAP PO SCH ×2 (07:51→20:21)
[2023-07-06] MEDS: METOPROLOL TARTRATE 50 MG TAB PO SCH ×2 (07:51→20:19)
[2023-07-06] MEDS: MAGNESIUM OXIDE 400 MG TAB PO SCH ×2 (07:51→20:20)
[2023-07-06] MEDS: FAMOTIDINE 20 MG TAB PO SCH ×2 (07:52→20:20)
[2023-07-06] MEDS: APIXABAN 5 MG TABLET PO SCH ×2 (07:52→20:20)
[2023-07-06] MEDS: allopurinoL 300 MG TAB PO SCH (07:52)
[2023-07-06] MEDS: FOLIC ACID 1 MG TAB PO SCH (07:53)
[2023-07-06] MEDS: MULTIVITAMIN TAB PO SCH (07:53)
[2023-07-06] MEDS: FUROSEMIDE 80 MG TAB PO SCH ×2 (07:53→17:05)
[2023-07-06] MEDS: INSULIN ASPART PER UNIT CHARGE SC SCH ×4 (08:00→20:16)
--- NOTE | 2023-07-06 08:33 | Hospitalist Progress Note ---
Date of Service July 06, 2023 Assessment & Plan (1) Volume overload: Plan: Hypervolemia with Hx renal transplant and SHERLYN this admission, diuresis with assistance by Nephrology, transition back to home torsemide on discharge, negative fluid balance noted Prior echo - 03/2023 - preserved EF, moderate pulmonary HTN, normal valve function otherwise BMP reviewed, Cr now stable and improved at 1.[address] Collins's assistance (2) Pulmonary edema: Plan: Improved Dyspnea and MENDOZA improved. Lung exam better, not on supplemental O2 2nd to SHERLYN in the setting of her renal transplant status Transition back to home torsemide dosing on discharge (3) UTI (urinary tract infection): Plan: Hx of Pseudomonas and Enterococcal UTI, both sensitive in the past to fluoroquinolones UCx with gram positive cocci Continue Cipro 500mg BID x7 days (4) Kidney transplant recipient: Plan: - [facility] remains on: * tacrolimus 0.5mg BID * mycophenolate 250mg BID Tacrolimus level 11.[address] Giraldo, [facility] [place]rology, spoke with her transplant team in [place] last week - no plans for biopsy of the renal transplant at this time (5) Atrial fibrillation: Plan: Cont Eliquis 5mg BID Diltiazem could be contributing to edema, therefore have discontinued, on telemetry has been largely AFib in 70-80s, intermittent mild randy to 50s, asymptomatic Increased metoprolol to 50mg BID this admission, continue (6) Acute kidney injury: Plan: Resolved BMP reviewed, peak Cr 1.9, now 1.57 (7) Diabetic peripheral neuropathy associated with type 2 diabetes mellitus: Plan: Hba1c <6% this admission BSGs have been tightly controlled entire stay Cont to HOLD lantus Cont loose SSI with NovoLog (8) HTN (hypertension): Plan: LORRAINE on hold due to recent SHERLYN and mildly elevated K Remains on metoprolol and Lasix BPs controlled (9) Hypothyroidism: Plan: All TSH levels dating back to 2021 have been high suggesting decompensated hypothyroidism 06/08/23 - dose increased from 88mcg to 100mcg, continue this Will need repeat TSH in late June (10) Monoclonal gammopathy: Plan: Appreciate heme/onc consultation Known monoclonal gammopathy of renal significance Renal transplant bx deferred at this time (11) Wound of right lower extremity: Plan: Cont Aquacel silver, ABDs, then Kerlix dressings Venous ulcer 2nd to severe edema Appreciate wound care team assistance Will need f/u with Wound Care Clinic post-discharge (12) Hyperkalemia: Plan: BMP reviewed, K of 4.6 today Continue low K diet, Lasix, daily BMP Plan DVT proph - eliquis cont PT, OT Difficulty with finding SNF placement for patient, can get 24 hour care for the next few days with HH services so patient/family elect for discharge home tomorrow progressing nicely Admission and Anticipated Discharge Date Admission Date: June 22, 2023 Subjective No overnight events, feels well with regard to her breathing, no dysuria, no other stated complaints. Physical Exam Constitutional: + morbidly obese and + frail appearing; no acute distress Respiratory: normal respiratory effort, lungs clear to auscultation Auscultation: lungs clear to auscultation bilaterally Cardiovascular: Rate/Rhythm: + irregularly irregular Extremities: + edema (2+ LE) and + AV fistula Gastrointestinal (Abdomen): normal bowel sounds, soft, nontender, no hepatosplenomegaly Skin: no rashes, warm and dry Psychiatric: A+Ox3, euthymic affect Results & Data Results & Data Vital Signs (Past 12 Hours) Vital Signs Temp Pulse Pulse Resp BP Pulse Ox O2 Del Method 07/06/23 07:38 36.4 C L 89 19 125/77 93 Room Air 07/06/23 07:23 80 16 95 Room Air 07/06/23 02:59 36.8 C 88 18 121/72 98 Room Air 07/05/23 21:15 Room Air 07/05/23 22:00 83 07/05/23 22:43 36.6 C 87 18 121/73 93 Room Air PG Care Time/CCT Total # of Minutes Spent Total Time Spent with Patient: Total time spent is greater than 50% in coordination of care (as documented) at patient's floor/unit and/or counseling patient: Coding Level of Care Code 25437 SUB INP/OBS CARE 3/50MIN Diagnoses Volume overload E87.70 Pulmonary edema J81.1 UTI (urinary tract infection) N39.0 Kidney transplant recipient Z94.0 Atrial fibrillation I48.91 Acute kidney injury N17.9 Diabetic peripheral neuropathy associated with type 2 diabetes mellitus E11.42 HTN (hypertension) I10 Hypertension type: primary hypertension Hypothyroidism E03.9 Hypothyroidism type: unspecified Monoclonal gammopathy D47.2 Wound of right lower extremity S81.801A Hyperkalemia E87.5 (8) HTN (hypertension) Hypertension type: primary hypertension Qualified Code(s): I10 - Essential (primary) hypertension (9) Hypothyroidism Hypothyroidism type: unspecified Qualified Code(s): E03.9 - Hypothyroidism, unspecified
--- NOTE | 2023-07-06 10:29 | Nephrology Progress Note ---
Date of Service July 06, 2023 Assessment & Plan (1) Acute kidney injury: Plan: Creatinine has returned to baseline and remains stable. Volume status improving. Electrolytes normal. Lisinopril has been held. Medications are appropriately dosed for kidney function. Monitor metabolic profile daily while inpatient. Monitor labs at least weekly at discharge. Outpatient follow up in the nephrology clinic with me should be arranged within 1-2 weeks of discharge. 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 Baseline creatinine ~1.5 mg/dL. A3 proteinuria (536 mg on 24 hour collection). 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 Tacro has been limited to 0.5 mg BID. Continue Cellcept 250 mg BID. 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 Followed by hematology at [facility]. Non- nephrotic proteinuria, kidney function improving, overall clinical improvement, UPEP not compelling at this time and follow up allograft biopsy has been deferred. (3) Hypervolemia: Plan: Improving with furosemide 80 mg PO BID. Continue same as Rx. Low sodium diet. Feet elevation. Keep Left arm elevated. TTE with normal LVEF and moderate MR. Elevated RVSP. (4) Proteinuria: Plan: Lisinopril held due to SHERLYN. No biopsy at this time. PLA2r negative in the past. Repeat testing pending. Complement levels pending. Admission and Anticipated Discharge Date Admission Date: June 22, 2023 Subjective No acute events overnight. Dysuria improved. Urine output not 100% documented due to stool mixed with urine. Edema continues to improve. Overall, Delmi feels well and continues to describe improving strength. Plan of care was discussed with Dr. Espana this AM. Review of Systems Review of Systems: All systems reviewed & are unremarkable except as noted in HPI & below Physical Exam Constitutional: + morbidly obese and + frail appearing; no acute distress Eyes: no scleral abnormality and no corneal abnormality ENMT: Mouth: no oral mucosal abnormality and oral mucous membranes not dry Neck: normal visual inspection and trachea midline Respiratory: normal respiratory effort Auscultation: lungs clear to auscultation bilaterally Cardiovascular: Rate/Rhythm: + irregularly irregular Heart Sounds: normal S1, normal S2 and + murmur Extremities: + edema (1-2+ edema BL LE. LUE) and + AV fistula Musculoskeletal: Extremities: no cyanosis and no clubbing Neurologic: Motor/Sensory: no tremor and no asterixis Psychiatric: Orientation: alert and oriented x 3 Results & Data Vital Signs (Past 12 Hours) Vital Signs Temp Pulse Pulse Resp BP Pulse Ox O2 Del Method 07/06/23 08:00 Room Air 07/06/23 08:00 69 07/06/23 07:38 36.4 C L 89 19 125/77 93 Room Air 07/06/23 07:23 80 16 95 Room Air 07/06/23 02:59 36.8 C 88 18 121/72 98 Room Air 07/05/23 22:43 36.6 C 87 18 121/73 93 Room Air Laboratory Results Laboratory Results - last 24 hr 07/05/23 07/05/23 07/05/23 11:03 16:11 20:01 WBC RBC Hgb Hct MCV MCH MCHC RDW Std Deviation RDW Coeff of Lidya Plt Count MPV Sodium Potassium Chloride Carbon Dioxide Anion Gap BUN Creatinine Est Cr Clr Drug Dosing Est GFR ( Amer) Est GFR (Non-Af Amer) BUN/Creatinine Ratio Glucose POC Glucose 110 H 97 98 Calcium Phosphorus Albumin 07/06/23 07/06/23 07/06/23 07:03 07:03 07:35 WBC 5.66 RBC 4.03 L Hgb 12.7 Hct 37.4 MCV 92.8 MCH 31.5 MCHC 34.0 RDW Std Deviation 66.0 H RDW Coeff of Lidya 19.5 H Plt Count 114 L MPV 11.6 Sodium 137 Potassium 4.6 Chloride 104 Carbon Dioxide 28 Anion Gap 5 BUN 49 H Creatinine 1.57 H Est Cr Clr Drug Dosing 35.8 Est GFR ( Amer) 36.7 Est GFR (Non-Af Amer) 31.7 BUN/Creatinine Ratio 31.2 H Glucose 101 H POC Glucose 108 H Calcium 8.6 Phosphorus 3.4 Albumin 3.1 L PG Care Time/CCT Total # of Minutes Spent Total Time Spent with Patient: Total time spent is greater than 50% in coordination of care (as documented) at patient's floor/unit and/or counseling patient: Coding Level of Care Code 55029 SUB INP/OBS CARE 3/50MIN Diagnoses Acute kidney injury N17.9 History of kidney transplant Z94.0 Hypervolemia E87.70 Proteinuria R80.9
[2023-07-06] MEDS: CIPROFLOXACIN 500 MG TAB PO SCH (17:05)
[2023-07-06] MEDS: MELATONIN 3 MG TAB PO SCH (20:20)
[2023-07-07] MEDS: LEVOTHYROXINE SODIUM 100 MCG TABLET PO SCH (05:30)
[2023-07-07 06:37] LABS: Creatinine Clr Calc Pharmacy 41.7 ml/min; Est GFR (African American) 44.1 ml/min
[2023-07-07] MEDS: ALBUTEROL HFA 8 GM INHALER INH SCH ×2 (06:49→10:16)
[2023-07-07] MEDS: MYCOPHENOLATE MOFETIL 250 MG CAP PO SCH (08:07)
[2023-07-07] MEDS: OMEGA-3 (PURIFIED FISH OIL) 1 GM CAP PO SCH (08:08)
[2023-07-07] MEDS: MULTIVITAMIN TAB PO SCH (08:08)
[2023-07-07] MEDS: allopurinoL 300 MG TAB PO SCH (08:08)
[2023-07-07] MEDS: MAGNESIUM OXIDE 400 MG TAB PO SCH (08:10)
[2023-07-07] MEDS: FUROSEMIDE 80 MG TAB PO SCH (08:10)
[2023-07-07] MEDS: APIXABAN 5 MG TABLET PO SCH (08:10)
[2023-07-07] MEDS: CIPROFLOXACIN 500 MG TAB PO SCH (08:10)
[2023-07-07] MEDS: TACROLIMUS 0.5 MG CAP PO SCH (08:11)
[2023-07-07] MEDS: METOPROLOL TARTRATE 50 MG TAB PO SCH (08:11)
[2023-07-07] MEDS: FOLIC ACID 1 MG TAB PO SCH (08:11)
[2023-07-07] MEDS: INSULIN ASPART PER UNIT CHARGE SC SCH ×2 (08:31→12:20)
[2023-07-07] MEDS: FAMOTIDINE 20 MG TAB PO SCH (09:03)
--- NOTE | 2023-07-07 09:40 | Discharge Summary ---
Discharge Summary Date of Service July 07, 2023 Admission HPI Per Admitting Provider Patient is 77-year-old woman with a past medical history of diabetic CKD with history of renal transplant 1995, type 2 diabetes, atrial fibrillation, hypothyroidism, hyperlipidemia, gout, hyperparathyroidism who presents to the hospital with worsening fluid retention, weight gain, and shortness of breath for the last 2 weeks as well as orthopnea. Was seen by his PCP today and was instructed to go to the emergency room due to these ongoing issues and being borderline hypoxic in the office. Patient has been taking all of her medications. Was recently switched from furosemide 80 mg to torsemide 40 mg 2 weeks prior. She denies any fever, chills, nausea, vomiting, or abdominal pain. Patient states that she also has a wound on her right leg that has been getting worse over this past 2 weeks. In the ED: X-ray showed cardiomegaly with pulmonary edema, as well as layering pleural effusion with bibasilar consolidation. Creatinine of 1.60 and BUN of 52. Troponin 14.8, BNP of 844, UA showed 3+ protein and 3+ blood, EKG showed A- fib, hypoxic in the ED and requiring 2.5 L nasal cannula. Admission Exam Per Admitting Provider Constitutional: well-appearing, no acute distress HEENT: NCAT, no conjunctival injection CV: irregularity irregular rate and rhythm, no murmur appreciated, extremities well-perfused, bilateral lower extremity pitting edema Resp: Rales and diminished breath sounds bilaterally lower lobes GI: soft, nondistended, nontender, BS normoactive MSK: no gross deformities appreciated Skin: Erythematous seeping wound on the right lower extremity extending from the lateral aspect of the knee to the lateral ankle Neuro: alert, oriented, no focal neurologic deficit appreciated Principal Dx & Hospital Course #1 = Principal Diagnosis (1) Volume overload: Hypervolemia with Hx renal transplant and SHERLYN this admission, diuresis with assistance by Nephrology, can continue furosemide 80 mg twice daily on discharge Prior echo - 03/2023 - preserved EF, moderate pulmonary HTN, normal valve fu nction otherwise BMP reviewed, Cr now stable and improved at around 1.5, follow-up BMP next week, follow-up with nephrology on 07/27 sooner if necessary Patient down a total of 10 kg this admission Appreciate Dr Collins's assistance (2) Pulmonary edema: Improved Dyspnea and MENDOZA improved. Lung exam better, not on supplemental O2 2nd to SHERLYN in the setting of her renal transplant status Continue furosemide 80 mg twice daily on discharge (3) UTI (urinary tract infection): UCx with E faecalis sensitive to fluoroquinolones Continue Cipro 500mg BID p.o. x7 days (4) Kidney transplant recipient: [address] [place] [address] remains on: * tacrolimus 0.5mg BID * mycophenolate 250mg BID Tacrolimus level 11.[address] Giraldo, [facility] [place], spoke with her transplant team in [place] last week - no plans for biopsy of the renal transplant at this time (5) Atrial fibrillation: Cont Eliquis 5mg BID Diltiazem could be contributing to edema, therefore have discontinued, on telemetry has been largely AFib in 70-80s, intermittent mild randy to 50s, asymptomatic Increased metoprolol to 50mg BID this admission, continue (6) Acute kidney injury: Resolved BMP reviewed, peak Cr 1.9, now 1.57 (7) Diabetic peripheral neuropathy associated with type 2 diabetes mellitus: Hba1c <6% this admission Diet controlled at home, no intervention necessary (8) HTN (hypertension): Continue to hold LORRAINE, defer to nephrology regarding resuming thi Continue Lasix and metoprolol s (9) Hypothyroidism: All TSH levels dating back to 2021 have been high suggesting decompensated hypothyroidism 06/08/23 - dose increased from 88mcg to 100mcg, continue this Will need repeat TSH in late June (10) Monoclonal gammopathy: Appreciate heme/onc consultation Known monoclonal gammopathy of renal significance Renal transplant bx deferred at this time (11) Wound of right lower extremity: Cont Aquacel silver, ABDs, then Kerlix dressings Venous ulcer 2nd to severe edema Appreciate wound care team assistance Will need f/u with Wound Care Clinic post-discharge, this was arranged and will have services in-house (12) Hyperkalemia: Continue low K diet, Lasix, BMP next week Plan Discharge home with care per son and home health services Discharge Exam Constitutional WD/WN, vitals as above Respiratory normal respiratory effort, lungs clear to auscultation Updated Medication List Medication Instructions Recorded Confirmed Type multivitamin 1 tab PO QAM ##0 05/23/06 06/22/23 History omega 4-mvp-ojm-fish oil 1,000 mg 1,000 mg PO BID ##0 10/30/10 06/22/23 History (120 mg-180 mg) capsule (Fish Oil) folic acid 1 mg tablet 1 mg PO QAM ##0 05/07/12 06/22/23 History lutein 20 mg capsule 20 mg PO QPM ##0 11/11/14 06/22/23 History lancets 33 gauge (OneTouch Delica #100 ea 06/15/19 06/22/23 History Plus Lancet) tacrolimus 0.5 mg capsule, 0.5 mg PO Q12 08/28/19 06/22/23 History immediate-release mycophenolate mofetil 250 mg 250 mg PO Q12 10/15/20 06/22/23 History capsule fexofenadine 180 mg tablet 180 mg PO DAILY PRN Allergy 05/14/22 06/22/23 History (Mariya Allergy) Symptoms simvastatin 20 mg tablet 20 mg PO HS #90 tabs 07/06/22 06/22/23 Rx lisinopril 20 mg tablet 20 mg PO HS #90 tabs 07/30/22 06/22/23 Rx pen needle, diabetic 32 gauge x #100 ea 08/17/22 06/22/23 Rx 5/32" (BD Ultra-Fine Germania Pen Needle) insulin glargine 100 unit/mL (3 5 unit (0.05 mL) subcut QAM #15 mL 11/30/22 06/22/23 Rx mL) subcutaneous pen (Lantus Solostar U-100 Insulin) allopurinol 300 mg tablet 300 mg PO DAILY #90 tabs 12/28/22 06/22/23 Rx famotidine 20 mg tablet 20 mg PO BID #60 tabs 01/25/23 06/22/23 Rx blood sugar diagnostic #100 ea 03/15/23 06/22/23 Rx apixaban 5 mg tablet (Eliquis) 5 mg PO BID #180 tabs 04/29/23 06/22/23 Rx levothyroxine 100 mcg tablet 100 mcg PO DAILYBB #60 tabs 06/08/23 06/22/23 Rx magnesium oxide 400 mg (241.3 mg 400 mg PO BID #180 tabs 06/16/23 06/22/23 Rx magnesium) tablet acetaminophen 650 mg 650 mg PO Q4H PRN Pain 06/22/23 06/22/23 History tablet,extended release albuterol sulfate 90 mcg/actuation 1 inh inhalation QID 06/22/23 06/22/23 History aerosol inhaler denosumab 60 mg/mL subcutaneous 60 mg subcut DIRECTED 06/22/23 06/22/23 History syringe [id number] 250 mg-dha 90 1 cap PO BID 06/22/23 06/22/23 History mg-epa 160 av-dpnp-teiy-zeax capsule (Ocuvite Adult 50 Plus) ciprofloxacin HCl 500 mg tablet 500 mg PO BID 5 days #10 tabs 07/07/23 Rx furosemide 80 mg tablet 80 mg PO BID17 30 days #30 tabs 07/07/23 Rx metoprolol tartrate 50 mg tablet 50 mg PO BID 30 days #60 tabs 07/07/23 Rx Hospital Stay Data Consultations 06/22/23 17:08 ED Decision to Admit Stat 06/22/23 21:32 Consult Nephrology Routine 06/26/23 13:30 Consult Oncology Routine Diagnostic Imagining Performed 06/22/23 19:31 US renal transplant w dop Stat Pending Results Patient Have Any Pending Studies at Discharge: No Discharge Instructions Given to Patient (Per Discharging Provider) You were admitted to the hospital for evaluation and management of fluid overload and kidney injury. You were given water pill medication to help you pee the extra fluid off. We were able to return you to your home water pill medication and discharge you home with the following recommendations: keep an eye on your sodium intake, as too much sodium can make you retain water. Your diltiazem was STOPPED. Your metoprolol dose was INCREASED in its place, see med list below. Your torsemide was STOPPED, and CHANGED to furosemide 80 milligrams twice daily. Lastly, you were given an antibiotic for a UTI, called Cipro. This is one pill twice daily until complete, even if you feel normal. These were sent to [facility] in [place]. Please follow up with Nephrology and your family doctor regarding your hospit alization and pending kidney labwork. Total Time Total Time Spent Total Time Spent (In Minutes): 35-minute Coding Level of Care Code 48966 INP/OBS DISCH >30 MIN Diagnoses Volume overload E87.70 Pulmonary edema J81.1 UTI (urinary tract infection) N39.0 Kidney transplant recipient Z94.0 Atrial fibrillation I48.91 Acute kidney injury N17.9 Diabetic peripheral neuropathy associated with type 2 diabetes mellitus E11.42 HTN (hypertension) I10 Hypertension type: primary hypertension Hypothyroidism E03.9 Hypothyroidism type: unspecified Monoclonal gammopathy D47.2 Wound of right lower extremity S81.801A Hyperkalemia E87.5
--- NOTE | 2023-07-07 12:46 | Nephrology Progress Note ---
Date of Service July 07, 2023 Assessment & Plan (1) Acute kidney injury: Plan: Creatinine stable. Volume status continues to improve. Electrolytes normal. Lisinopril has been held. Medications are appropriately dosed for kidney function. Repeat metabolic profile next week. Outpatient follow up in the nephrology clinic in 2 weeks. 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 Baseline creatinine ~1.5 mg/dL. A3 proteinuria (536 mg on 24 hour collection). 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 [place]ro has been limited to 0.5 mg BID. Continue Cellcept 250 mg BID. 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 Followed by hematology at [facility]. Non- nephrotic proteinuria, kidney function improving, overall clinical improvement, UPEP not compelling at this time and follow up allograft biopsy has been deferred. (3) Hypervolemia: Plan: Improving with furosemide 80 mg PO BID. Continue same as Rx. Low sodium diet. Feet elevation. Keep Left arm elevated. TTE with normal LVEF and moderate MR. Elevated RVSP. (4) Proteinuria: Plan: Lisinopril held due to SHERLYN. No biopsy at this time. PLA2r negative in the past. Repeat testing pending. Complement levels pending. Admission and Anticipated Discharge Date Admission Date: June 22, 2023 Subjective No acute events overnight. Delmi feels well. Wants to go home today. Review of Systems Review of Systems: All systems reviewed & are unremarkable except as noted in HPI & below Physical Exam Constitutional: + morbidly obese; no acute distress Eyes: no scleral abnormality and no corneal abnormality ENMT: Mouth: no oral mucosal abnormality and oral mucous membranes not dry Neck: normal visual inspection and trachea midline Respiratory: normal respiratory effort Auscultation: lungs clear to auscultation bilaterally Cardiovascular: Rate/Rhythm: + irregularly irregular Heart Sounds: normal S1, normal S2 and + murmur Extremities: + edema (1-2+ edema BL LE. LUE) and + AV fistula Musculoskeletal: Extremities: no cyanosis and no clubbing Neurologic: Motor/Sensory: no tremor and no asterixis Psychiatric: Orientation: alert and oriented x 3 Results & Data Vital Signs (Past 12 Hours) Vital Signs Temp Pulse Pulse Pulse Resp BP Pulse Ox 07/07/23 11:44 36.3 C L 86 79 19 128/74 98 07/07/23 11:30 36.3 C L 79 19 128/74 98 07/07/23 10:16 88 16 92 07/07/23 10:29 83 07/07/23 10:16 07/07/23 07:18 36.4 C L 85 19 131/80 93 07/07/23 06:50 83 18 96 07/07/23 03:15 36.6 C 82 18 119/71 94 O2 Del Method 07/07/23 11:44 07/07/23 11:30 Room Air 07/07/23 10:16 Room Air 07/07/23 10:29 07/07/23 10:16 Room Air 07/07/23 07:18 Room Air 07/07/23 06:50 Room Air 07/07/23 03:15 Room Air Laboratory Results Laboratory Results - last 24 hr 07/06/23 07/06/23 07/07/23 16:20 20:09 05:33 Creatinine 1.35 H Est Cr Clr Drug Dosing 41.7 Est GFR ( Amer) 44.1 Est GFR (Non-Af Amer) 38.0 POC Glucose 98 113 H 07/07/23 07/07/23 07:15 11:30 Creatinine Est Cr Clr Drug Dosing Est GFR ( Amer) Est GFR (Non-Af Amer) POC Glucose 91 99 PG Care Time/CCT Total # of Minutes Spent Total Time Spent with Patient: Total time spent is greater than 50% in coordination of care (as documented) at patient's floor/unit and/or counseling patient: Coding Level of Care Code 53483 SUB INP/OBS CARE 3/50MIN Diagnoses Acute kidney injury N17.9 History of kidney transplant Z94.0 Hypervolemia E87.70 Proteinuria R80.9
[2023-07-07 13:12] LABS: Anti Nuclear Antibody Screen NEGATIVE (NEGATIVE); Anti-dsDNA Recombinant <1 IU/mL; Complement C3 79 mg/dL (83-193)
== END 2023-07-07 14:32 | disposition home health service (06) | DRG 291 ==
LOC: ED 13:22 → 2S 18:59 → SUATTDRO 18:59 → 2S 20:24

== ENCOUNTER 2023-10-27 23:44 | Inpatient (IN) ==
--- NOTE | 2023-10-28 00:38 | Emergency Department Note ---
Impression & Plan SIRS (systemic inflammatory response syndrome), SHERLYN (acute kidney injury) ED Provider Note Name: ROXANNE CHANDLER Age: 77 Sex: Female Arrives Via: Ambulance Informant: Patient, EMS ED Provider: Alejandro Tay MD Chief Complaint: Weakness Impression: As per impressions above Medical Decision Makin-year-old female arrives from EMS for evaluation of worsening weakness fatigue and altered mental status. On evaluation patient is awake alert oriented but is quite sleepy. Answers all questions though. Examination she looks quite dehydrated though is clearly edematous on top of that. She furthermore has a history of renal failure with transplant. She does have a fever she is tachycardic and I have concern for possible sepsis. Blood cultures lactic acid obtained. She does have an elevated lactate. She was given 1 L normal saline bolus for 30 ml/kg as patient clearly has baseline fluid overload along with acute renal injury. Heart rate did come down with fluids on repeat reassessment heart rate is down to 100 A-fib. Blood pressure remained stable. Repeat lactic acid remains at 2.2 however given patient's other medical issues I think continued large bolus fluid resuscitation would be detrimental to her care and will be managed by hospitalist team. Patient was given empiric IV antibiotics for possible infection. Viral panel is negative and chest x-ray and urine do not clearly show infiltrate other than some congestive findings on chest x-ray. Laboratory work-up as attached. Triage/Nursing Notes reviewed by Me Differential:Infection, dehydration, metabolic abnormality, hypo/hyperglycemia, electrolyte disturbance, anemia, hypoxia, cardiac sources, intracerebral event, toxicologic, neurologic, as well as other pathologies. Vital Signs: reviewed and remarkable for fever tachycardia Interventions: Normal saline bolus 1 L IV, Tylenol 1 g IV, Zosyn IV, vancomycin IV Labs:ED labs Reviewed by me and remarkable for elevated white blood cell count, elevated creatinine from baseline, elevated lactic acid Imagin view chest x-ray interpreted by me mild congestive findings bilaterally no overt infiltrate or pneumothorax appreciated EKG:As per my interpretation. Indication tachycardia. A-fib RVR at 127 bpm with PVCs noted. QTc 456. When compared to EKG of July 18, 2023 there is no significant change Cardiac/Tele Monitoring: Cardiac Monitoring: An Order was placed for continuous cardiac monitoring. The monitor shows a rate of 100 with a A-fib rhythm. Consults:Dr. Rogers of the [facility] service Plan: Disposition:Hospitalization. Condition: fair History of Present Illness: 77-year-old female arrives for evaluation of weakness. Patient about 1 week worsening fatigue, shortness of breath, weakness. Associated with runny nose. Notes some increasing swelling in her extremities. She admits she has not had an appetite in the last few days and has not eaten or drinking anything today. She was so weak that EMS was called . According to EMS patient had a temp of 103. No interventions prior to arrival. Patient denies any current chest pain, back pain, abdominal pain, urinary symptoms, leg swelling or other concerning signs or symptoms. Patient does have a history of renal transplant about 30 years ago and at that time had been on dialysis but has not been on dialysis since then. She denies any falls, trauma, injuries. Past Medical History:See Below Home Medications:See Below Allergies:adhesive Vitals:Blood Pressure: 118/89, Pulse 122, RR 26, T 37.2C, O2 93% on 2L NC Physical Exam: GENERAL: Patient is tire appearing and in minimal distress. Unwell RESPIRATORY: mild dyspnea with diffuse crackles. CARDIOVASCULAR: Tachy, irreglar.No murmur appreciated. GASTROINTESTINAL: Abdomen soft, non-tender, no peritonitis. EXTREMITIES: Diffuse edema all extremities left arm greater than right. Fistula left upper arm. Bilateral legs are wrapped. NEUROLOGIC: Alert and oriented. No focal neurologic deficits appreciated SKIN: No rash, no jaundice, no diaphoresis. PSYCH: Appropriate GCS: 15 ED Course: Times/Reassessments: Multiple repeat evaluations patient really does look much improved with some fluids and she states she is feeling better she is agreeable to hospitalization. Alejandro Tay MD Past Med/Surg History Medical History Microscopic hematuria Proteinuria Acute kidney injury Elevated troponin Personal history of diabetic foot ulcer Diabetic peripheral neuropathy associated with type 2 diabetes mellitus Paroxysmal atrial fibrillation Proliferative glomerulonephritis with nephrotic syndrome Mitral regurgitation Bilateral leg edema Long-term current use of tacrolimus Thrombocytopenia Atrial fibrillation with RVR Hyperparathyroidism Osteoporosis Hypothyroidism Polycystic kidney disease HX > DR. ROCK > [facility] > DR[facility] SUAREZ [facility] Macular degeneration BILAT History of dysplastic nevus Hypercholesteremia HTN (hypertension) Gastric ulcer RESOLVED Atrial fibrillation DX 2013 > NO CARDIOVERSIONS Surgical History History of tonsillectomy History of squamous cell carcinoma in situ of skin WITH REMOVAL TO HEAD Hx of cholecystectomy History of hysterectomy Kidney transplant recipient RIGHT > 1995 History of renal transplant (07/02/11) Family History Mother Diabetes Father Kidney disease Hypertension Son Kidney disease Sister Kidney disease Aunt Breast cancer Denies family history of Ovarian cancer Prostate cancer Myocardial infarction Colorectal cancer Social History Smoking Status: Never smoker Tobacco Type: Cigarettes Second Hand Exposure: No; Do You Dip or Chew Tobacco: No; Hx Alcohol Use: No Hx Substance Use: No Preferred Language: Georgian Communication Ability: Effective Visual Impairment: No Limitations Hearing Ability: Normal 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 Beliefs That Will Affect Care: None marital status: Current Living Situation: Spouse and Family Current Living Situation Comment: Lives at home with current occupational status: retired Feels Safe at Home: Yes Diet: low salt caffeine: No Dental Care, Regularly: Yes Physical Activity Frequency: Does not Exercise Seatbelt Use: always Sunscreen Use: Yes Assistive Devices: Walker Allergies Allergies Allergy/AdvReac Type Severity Reaction Status Date / Time adhesive Allergy Intermediate ERYTHEMA Verified 10/19/23 10:47 WITH ADHESIVE TAPE, blisters Home Meds Home Medications Medication Instructions Recorded Confirmed multivitamin 1 tab PO QAM ##0 05/23/06 10/28/23 omega [id number]-zno-boz-fish oil 1,000 mg 1,000 mg PO BID ##0 10/30/10 10/28/23 (120 mg-180 mg) capsule (Fish Oil) folic acid 1 mg tablet 1 mg PO QAM ##0 05/07/12 10/28/23 lutein 20 mg capsule 20 mg PO QPM ##0 11/11/14 10/28/23 lancets 33 gauge (OneTouch Delica #100 ea 06/15/19 10/19/23 Plus Lancet) tacrolimus 0.5 mg capsule, 0.5 mg PO Q12 08/28/19 10/28/23 immediate-release mycophenolate mofetil 250 mg 250 mg PO Q12 10/15/20 10/28/23 capsule fexofenadine 180 mg tablet 180 mg PO DAILY PRN Allergy 05/14/22 10/28/23 (Mariya Allergy) Symptoms acetaminophen 650 mg 650 mg PO Q4H PRN Pain 06/22/23 10/28/23 tablet,extended release albuterol sulfate 90 mcg/actuation 1 inh inhalation QID 06/22/23 10/28/23 aerosol inhaler [id number] 250 mg-dha 90 1 cap PO BID 06/22/23 10/28/23 mg-epa 160 [id number]-hgpu-[id number] capsule (Ocuvite Adult 50 Plus) allopurinol 300 mg tablet 300 mg PO AMPM 10/28/23 10/28/23 furosemide 40 mg tablet 80 mg PO BID 10/28/23 10/28/23 Previous Rx's Medication Instructions Recorded pen needle, diabetic 32 gauge x #100 ea 08/17/22" (BD Ultra-Fine Germania Pen Needle) insulin glargine 100 unit/mL (3 5 unit (0.05 mL) subcut QAM #15 mL 11/30/22 mL) subcutaneous pen (Lantus Solostar U-100 Insulin) blood sugar diagnostic #100 ea 03/15/23 apixaban 5 mg tablet (Eliquis) 5 mg PO BID #180 tabs 04/29/23 magnesium oxide 400 mg (241.3 mg 400 mg PO BID #180 tabs 06/16/23 magnesium) tablet lisinopril 5 mg tablet 5 mg PO DAILY #90 tabs 07/27/23 simvastatin 20 mg tablet 20 mg PO HS #90 tabs 08/25/23 levothyroxine 112 mcg tablet 112 mcg PO DAILY #60 tabs 08/31/23 famotidine 20 mg tablet 20 mg PO BID #60 tabs 09/02/23 metoprolol tartrate 50 mg tablet 50 mg PO BID #60 tabs 09/05/23 denosumab 60 mg/mL subcutaneous 60 mg subcut Q6MO #1 mL 09/20/23 syringe Results & Data (ED) Vital Signs Vital Signs - 24 hr 10/28/23 00:10 10/28/23 00:10 10/28/23 00:22 Temperature 37.2 C Temperature Source Oral Pulse Rate 122 H 122 H Respiratory Rate 26 H Respiratory Effort / Characteristics Non-Labored Spontaneous Respiratory Pattern Regular Blood Pressure 118/89 Blood Pressure Mean 98 Pulse Oximetry 97 93 Oxygen Delivery Method Room Air Nasal Cannula Nasal Cannula Oxygen Flow Rate 2 Sepsis Recent Fever Within 48 Hours Yes Sepsis New/Unexplained Change in Mental Status No Sepsis Action Taken by Nursing Physician Notified Oxygen Flow Rate - Titration 2 Pulse Oximetry Post Tiitration 93 10/28/23 00:30 10/28/23 00:33 10/28/23 00:34 Temperature Temperature Source Pulse Rate 130 H 113 H 118 H Respiratory Rate 19 24 Respiratory Effort / Characteristics Respiratory Pattern Blood Pressure 138/79 Blood Pressure Mean 98 Pulse Oximetry 97 93 Oxygen Delivery Method Nasal Cannula Nasal Cannula Oxygen Flow Rate 2 2 Sepsis Recent Fever Within 48 Hours Sepsis New/Unexplained Change in Mental Status Sepsis Action Taken by Nursing Oxygen Flow Rate - Titration Pulse Oximetry Post Tiitration 10/28/23 01:00 10/28/23 01:30 10/28/23 01:33 Temperature 38.5 C H Temperature Source Axillary Pulse Rate 120 H 127 H Respiratory Rate 28 H 22 Respiratory Effort / Characteristics Respiratory Pattern Blood Pressure 115/91 140/73 Blood Pressure Mean 99 95 Pulse Oximetry 93 97 Oxygen Delivery Method Nasal Cannula Nasal Cannula Oxygen Flow Rate 2 2 Sepsis Recent Fever Within 48 Hours Sepsis New/Unexplained Change in Mental Status Sepsis Action Taken by Nursing Oxygen Flow Rate - Titration Pulse Oximetry Post Tiitration 10/28/23 02:00 10/28/23 02:30 10/28/23 03:00 Temperature Temperature Source Pulse Rate 129 H 120 H 116 H Respiratory Rate 23 23 28 H Respiratory Effort / Characteristics Respiratory Pattern Blood Pressure 119/89 154/110 H 132/97 Blood Pressure Mean 99 124 108 Pulse Oximetry 95 97 96 Oxygen Delivery Method Nasal Cannula Room Air Room Air Oxygen Flow Rate 2 Sepsis Recent Fever Within 48 Hours Sepsis New/Unexplained Change in Mental Status Sepsis Action Taken by Nursing Oxygen Flow Rate - Titration Pulse Oximetry Post Tiitration 10/28/23 03:30 10/28/23 03:55 10/28/23 04:00 Temperature 38.1 C H Temperature Source Oral Pulse Rate 120 H 114 H Respiratory Rate 22 22 Respiratory Effort / Characteristics Respiratory Pattern Blood Pressure 131/77 129/80 Blood Pressure Mean 95 96 Pulse Oximetry 95 94 Oxygen Delivery Method Room Air Room Air Oxygen Flow Rate Sepsis Recent Fever Within 48 Hours Sepsis New/Unexplained Change in Mental Status Sepsis Action Taken by Nursing Oxygen Flow Rate - Titration Pulse Oximetry Post Tiitration 10/28/23 04:15 10/28/23 04:30 Temperature Temperature Source Pulse Rate 111 H 106 H Respiratory Rate 15 Respiratory Effort / Characteristics Respiratory Pattern Blood Pressure 122/74 Blood Pressure Mean 90 Pulse Oximetry 96 Oxygen Delivery Method Room Air Oxygen Flow Rate Sepsis Recent Fever Within 48 Hours Sepsis New/Unexplained Change in Mental Status Sepsis Action Taken by Nursing Oxygen Flow Rate - Titration Pulse Oximetry Post Tiitration Laboratory Data 10/28/23 00:25 10/28/23 01:39 Lab Results 10/28/23 10/28/23 10/28/23 Range/Units 00:25 00:35 00:58 WBC 16.19 H (4.8-10.8) K/ul RBC 5.60 H (4.20-5.40) M/uL Hgb 17.3 H (12.0-16.0) g/dl Hct 51.7 H (37.0-47.0) % MCV 92.3 (80.0-100.0) fL MCH 30.9 (25.0-34.0) pg MCHC 33.5 (32.0-36.0) g/dL RDW Std Deviation 72.7 H (36.4-46.3) fL RDW Coeff of Lidya 22.7 H (11.5-14.5) % Plt Count 111 L (130-400) K/uL Immature Gran % (Auto) 0.9 % Neut % (Auto) 92.0 % Lymph % (Auto) 2.0 % Milam % (Auto) 4.6 % Eos % (Auto) 0.0 % Baso % (Auto) 0.5 % Neut # (Auto) 14.90 H (1.40-6.50) K/uL Lymph # (Auto) 0.32 L (1.20-3.40) K/uL Milam # (Auto) 0.74 H (0.11-0.59) K/uL Eos # (Auto) 0.00 (0.00-0.50) K/uL Baso # (Auto) 0.08 (0.00-0.20) K/uL Immature Gran # (Auto) 0.15 (0.01-0.20) K/uL Polychromasia 1+ Anisocytosis Present Sodium Cancelled Potassium Cancelled Chloride Cancelled Carbon Dioxide Cancelled Anion Gap Cancelled BUN Cancelled Creatinine Cancelled Est Cr Clr Drug Dosing Cancelled Est GFR ( Amer) Cancelled Est GFR (Non-Af Amer) Cancelled BUN/Creatinine Ratio Cancelled Glucose Cancelled Lactate 2.2 H* (0.4-2.0) mmol/L Calcium Cancelled Magnesium Cancelled Total Bilirubin Cancelled Direct Bilirubin Cancelled AST Cancelled ALT Cancelled Alkaline Phosphatase Cancelled Troponin I High Sens Cancelled Total Protein Cancelled Albumin Cancelled Procalcitonin 0.56 H (0-0.5) ng/ml Urine Color Urine Appearance (Clear) Urine pH (4.5-7.5) Ur Specific [place] (1.000-1.030) Urine Protein (Negative) Urine Glucose (UA) (Negative) Urine Ketones (Negative) Urine Blood (Negative) Urine Nitrite (Negative) Urine Bilirubin (Negative) Urine Urobilinogen (Negative) Ur Leukocyte Esterase (Negative) Urine WBC (Auto) (0-5) /hpf Urine RBC (Auto) (0-4) /hpf U Hyaline Cast (Auto) (0-5) /lpf U Epithel Cells (Auto) (0-5) /lpf Urine Bacteria (Auto) (Negative) Adenovirus (PCR) Not Detected (NotDetected) B. pertussis DNA (PCR) Not Detected (NotDetected) B.parapertussis DNA PCR Not Detected (NotDetected) C. pneumoniae DNA (PCR) Not Detected (NotDetected) Coronavirus OC43 (PCR) Not Detected (NotDetected) Coronavirus HKU1 (PCR) Not Detected (NotDetected) Coronavirus 229E (PCR) Not Detected (NotDetected) SARS-CoV-2 (PCR) Not Detected (NotDetected) Coronavirus NL63 (PCR) Not Detected (NotDetected) Human Metapneumovir PCR Not Detected (NotDetected) Influenza Type A (PCR) Not Detected (NotDetected) Influenza Type B (PCR) Not Detected (NotDetected) M. pneumoniae (PCR) Not Detected (NotDetected) Parainfluenza 1 (PCR) Not Detected (NotDetected) Parainfluenza 2 (PCR) Not Detected (NotDetected) Parainfluenza 3 (PCR) Not Detected (NotDetected) Parainfluenza 4 (PCR) Not Detected (NotDetected) RSV (PCR) Not Detected (NotDetected) Entero/Rhino (PCR) Not Detected (NotDetected) 10/28/23 10/28/23 10/28/23 Range/Units 01:35 01:39 03:23 WBC (4.8-10.8) K/ul RBC (4.20-5.40) M/uL Hgb (12.0-16.0) g/dl Hct (37.0-47.0) % MCV (80.0-100.0) fL MCH (25.0-34.0) pg MCHC (32.0-36.0) g/dL RDW Std Deviation (36.4-46.3) fL RDW Coeff of Lidya (11.5-14.5) % Plt Count (130-400) K/uL Immature Gran % (Auto) % Neut % (Auto) % Lymph % (Auto) % Milam % (Auto) % Eos % (Auto) % Baso % (Auto) % Neut # (Auto) (1.40-6.50) K/uL Lymph # (Auto) (1.20-3.40) K/uL Milam # (Auto) (0.11-0.59) K/uL Eos # (Auto) (0.00-0.50) K/uL Baso # (Auto) (0.00-0.20) K/uL Immature Gran # (Auto) (0.01-0.20) K/uL Polychromasia Anisocytosis Sodium 142 Potassium 4.9 Chloride 105 Carbon Dioxide 26 Anion Gap 11 BUN 65 H Creatinine 1.60 H Est Cr Clr Drug Dosing 36.0 Est GFR ( Amer) 35.9 Est GFR (Non-Af Amer) 31.0 BUN/Creatinine Ratio 40.6 H Glucose 110 H Lactate 2.2 H* (0.4-2.0) mmol/L Calcium 9.3 Magnesium 2.3 Total Bilirubin 1.6 H Direct Bilirubin 0.6 H AST 18 ALT 7 Alkaline Phosphatase 86 Troponin I High Sens 34.1 H 39.7 H Total Protein 5.1 L Albumin 3.5 Procalcitonin (0-0.5) ng/ml Urine Color Dark Yellow Urine Appearance Clear (Clear) Urine pH 5.0 (4.5-7.5) Ur Specific Marathon 1.015 (1.000-1.030) Urine Protein 3+ H (Negative) Urine Glucose (UA) Negative (Negative) Urine Ketones Trace H (Negative) Urine Blood Negative (Negative) Urine Nitrite Negative (Negative) Urine Bilirubin Negative (Negative) Urine Urobilinogen Negative (Negative) Ur Leukocyte Esterase Trace H (Negative) Urine WBC (Auto) 1-5 (0-5) /hpf Urine RBC (Auto) 5-10 H (0-4) /hpf U Hyaline Cast (Auto) 5-10 H (0-5) /lpf U Epithel Cells (Auto) 10-20 H (0-5) /lpf Urine Bacteria (Auto) Negative (Negative) Adenovirus (PCR) (NotDetected) B. pertussis DNA (PCR) (NotDetected) B.parapertussis DNA PCR (NotDetected) C. pneumoniae DNA (PCR) (NotDetected) Coronavirus OC43 (PCR) (NotDetected) Coronavirus HKU1 (PCR) (NotDetected) Coronavirus 229E (PCR) (NotDetected) SARS-CoV-2 (PCR) (NotDetected) Coronavirus NL63 (PCR) (NotDetected) Human Metapneumovir PCR (NotDetected) Influenza Type A (PCR) (NotDetected) Influenza Type B (PCR) (NotDetected) M. pneumoniae (PCR) (NotDetected) Parainfluenza 1 (PCR) (NotDetected) Parainfluenza 2 (PCR) (NotDetected) Parainfluenza 3 (PCR) (NotDetected) Parainfluenza 4 (PCR) (NotDetected) RSV (PCR) (NotDetected) Entero/Rhino (PCR) (NotDetected) Administered Medications Acetaminophen (Acetaminophen 325 Mg Tab) 650 mg PO Q4H PRN PRN Reason: Pain or Fever Stop: 11/27/23 07:08 Last Admin: 10/28/23 10:54 Dose: 650 mg Documented By: QGV Albuterol (Albuterol Hfa 8 Gm Inhaler) 1 puffs INH QIDR KARIN Stop: 11/27/23 07:29 Last Admin: 10/28/23 14:50 Dose: 1 puffs Documented By: Admin: 10/28/23 10:01 Dose: 1 puffs Documented By: JOSE MARTIN Admin: 10/28/23 08:55 Dose: 1 puffs Documented By: JOSE MARTIN Allopurinol (Allopurinol 100 Mg Tab) 100 mg PO AMHS KARIN Stop: 11/27/23 08:59 Last Admin: 10/28/23 09:42 Dose: 100 mg Documented By: QGV Apixaban (Apixaban 5 Mg Tablet) 5 mg PO BID KARIN Stop: 11/27/23 08:59 Last Admin: 10/28/23 09:42 Dose: 5 mg Documented By: QGV Famotidine (Famotidine 20 Mg Tab) 20 mg PO BID KARIN Stop: 11/27/23 08:59 Last Admin: 10/28/23 09:42 Dose: 20 mg Documented By: QGV Folic Acid (Folic Acid 1 Mg Tab) 1 mg PO QAM KARIN Stop: 11/27/23 08:59 Last Admin: 10/28/23 09:42 Dose: 1 mg Documented By: QGV Furosemide (Furosemide 40 Mg/4 Ml Vial) 80 mg IV BID KARIN Stop: 11/27/23 12:44 Last Admin: 10/28/23 12:52 Dose: 80 mg Documented By: QGV Daptomycin 450 mg/ Syringe 9 mls @ 4.5 mls/min IV Q24H KARIN; Protocol Stop: 11/04/23 08:59 Last Admin: 10/28/23 12:52 Dose: 4.5 mls/min Documented By: QGV Cefepime HCl 2,000 mg/ Syringe 20 mls @ 5 mls/min IV Q12H KARIN; Protocol Stop: 11/04/23 13:59 Last Admin: 10/28/23 13:57 Dose: 5 mls/min Documented By: QGV Insulin Aspart (Insulin Aspart Per Unit Charge) 0 units SC ACHS KARIN Stop: 11/27/23 07:29 Last Admin: 10/28/23 17:41 Dose: Not Given Documented By: Admin: 10/28/23 13:59 Dose: Not Given Documented By: Admin: 10/28/23 09:43 Dose: Not Given Documented By: QGV Insulin Glargine (Lantus Per Unit Charge) 5 units SQ DAILY KARIN Stop: 11/27/23 08:59 Last Admin: 10/28/23 09:41 Dose: 5 units Documented By: QGV Co-signed By: JUAREZ Levothyroxine Sodium (Levothyroxine Sodium 112 Mcg Tablet) 112 mcg PO DAILYBB KARIN Stop: 11/27/23 07:29 Last Admin: 10/28/23 09:42 Dose: 112 mcg Documented By: QGV Magnesium Oxide (Magnesium Oxide 400 Mg Tab) 400 mg PO BID KARIN Stop: 11/27/23 08:59 Last Admin: 10/28/23 09:42 Dose: 400 mg Documented By: QGV Metoprolol Tartrate (Metoprolol Tartrate 50 Mg Tab) 50 mg PO BID KARIN Stop: 11/27/23 08:59 Last Admin: 10/28/23 09:42 Dose: 50 mg Documented By: QGV Mycophenolate Mofetil (Mycophenolate Mofetil 250 Mg Cap) 250 mg PO Q12 KARIN Stop: 11/27/23 08:59 Last Admin: 10/28/23 09:42 Dose: 250 mg Documented By: QGV Tacrolimus (Tacrolimus 0.5 Mg Cap) 0.5 mg PO Q12 KARIN Stop: 11/27/23 08:59 Last Admin: 10/28/23 09:42 Dose: 0.5 mg Documented By: QGV Discontinued Medications Acetaminophen (Acetaminophen 500 Mg Tab) 1,000 mg PO NOW STA Stop: 10/28/23 03:15 Last Admin: 10/28/23 03:25 Dose: 1,000 mg Documented By: ANGI Sodium Chloride (Nss) 1,000 mls @ 999 mls/hr IV .Q1H1M KARIN Stop: 10/28/23 01:45 Last Infusion: 10/28/23 03:08 Dose: Infused Documented By: Admin: 10/28/23 01:30 Dose: 999 mls/hr Documented By: ANGI Cefepime HCl (Maxipime) 2,000 mg in 20 mls @ 5 mls/min IV NOW STA; Protocol Stop: 10/28/23 01:32 Last Admin: 10/28/23 02:01 Dose: 5 mls/min Documented By: ANGI Vancomycin HCl 2,000 mg/ (Sodium Chloride) 540 mls @ 200 mls/hr IV NOW ONE Stop: 10/28/23 04:12 Last Infusion: 10/28/23 05:44 Dose: Infused Documented By: KMDavid Admin: 10/28/23 02:00 Dose: 200 mls/hr Documented By: ANGI Acetaminophen (Ofirmev) 1,000 mg in 100 mls @ 400 mls/hr IV NOW STA Stop: 10/28/23 02:54 Last Admin: 10/28/23 06:11 Dose: Not Given Documented By: ANGI Albumin Human (Albumin 5%) 250 mls @ 500 mls/hr IV ONE ONE Stop: 10/28/23 07:38 Last Infusion: 10/28/23 13:38 Dose: Infused Documented By: Admin: 10/28/23 09:41 Dose: 500 mls/hr Documented By: QGV Imaging Data Radiologist's Impression: Chest X-Ray 10/28/23 00:34 XR chest 1V portable CLINICAL HISTORY: Sepsis TECHNIQUE: Single frontal radiograph of the chest was obtained. Comparison: Comparison is made to chest radiograph 07/18/2023 FINDINGS: No lines and tubes are seen. Cardiomegaly is noted. Bilateral lower lung predominant airspace opacities are seen. No evidence of pleural effusion or pneumothorax. IMPRESSION: Bilateral lower lung predominant airspace opacities which may represent atelectasis, pneumonia, and/or aspiration. ACT 112: Negative or not required by law. Electronically signed by: Junito Serna M.D. 10/28/2023 7:54 AM Discharge Plan Visit Data Chief Complaint: Confusion Stated Complaint: AMS/COUGH, LETHARGY, CONFUSION, EDEMA ED Provider: Alejandro Tay Discharge Problem: SIRS (systemic inflammatory response syndrome), SHERLYN (acute kidney injury) Patient Disposition: Admitted As Inpatient Discharge Instructions Interventions: ED Discharge Assessment Last Done: 10/28/23 07:10
[2023-10-28] MEDS ORDERED: SODIUM CHLORIDE 0.9% 1,000 ML IV SCH (00:45)
[2023-10-28 00:52] LABS: Hematocrit (blood only) 51.7 % (37.0-47.0); Hemoglobin 17.3 g/dl (12.0-16.0); Mean Corpuscular Hemoglobin 30.9 pg (25.0-34.0); Mean Corpuscular Hgb Conc 33.5 g/dL (32.0-36.0); Mean Corpuscular Volume 92.3 fL (80.0-100.0); Platelet Count 111 K/uL (130-400); RDW Coefficient of Variation 22.7 % (11.5-14.5); RDW Standard Deviation 72.7 fL (36.4-46.3); White Blood Count 16.19 K/ul (4.8-10.8)
[2023-10-28 01:10] LABS: Anisocytosis Present; Basophils # (auto) 0.08 K/uL (0.00-0.20); Basophils % (auto) 0.5 %; Immature Granulocytes # (auto) 0.15 K/uL (0.01-0.20); Immature Granulocytes % (auto) 0.9 %; Lymphocytes # (auto) 0.32 K/uL (1.20-3.40); Monocytes # (auto) 0.74 K/uL (0.11-0.59); Monocytes % (auto) 4.6 %; Polychromasia 1+
[2023-10-28] MEDS ORDERED: CEFEPIME 2,000 MG/20 ML VIAL IV STA (01:29)
[2023-10-28] MEDS ORDERED: VANCOMYCIN CONSULT ACTIVE PRN (01:29)
[2023-10-28] MEDS ORDERED: VANCOMYCIN HCL 2,000 MG in SODIUM CHLORIDE 0.9% 500 ML IV ONE (01:29)
[2023-10-28 01:32] LABS: Adenovirus PCR Not Detected (NotDetected); Bordetella parapertussis PCR Not Detected (NotDetected); Bordetella pertussis PCR Not Detected (NotDetected); Chlamydia pneumoniae PCR Not Detected (NotDetected); Coronavirus 229E PCR Not Detected (NotDetected); Coronavirus CoV-2 (COVID19)PCR Not Detected (NotDetected); Coronavirus HKU1 PCR Not Detected (NotDetected); Coronavirus NL63 PCR Not Detected (NotDetected); Coronavirus OC43PCR Not Detected (NotDetected); Human Metapneumovirus PCR Not Detected (NotDetected); Influenza A PCR Not Detected (NotDetected); Influenza B PCR Not Detected (NotDetected); Mycoplasma pneumoniae PCR Not Detected (NotDetected); Parainfluenza Virus 1 PCR Not Detected (NotDetected); Parainfluenza Virus 2 PCR Not Detected (NotDetected); Parainfluenza Virus 3 PCR Not Detected (NotDetected); Parainfluenza Virus 4 PCR Not Detected (NotDetected); Respiratory Syncytial VirusPCR Not Detected (NotDetected); Rhinovirus/Enterovirus PCR Not Detected (NotDetected)
[2023-10-28 01:49] LABS: Appearance Urine Clear (Clear); Bacteria Urine Automated Negative (Negative); Bilirubin Urine Negative (Negative); Blood Urine Negative (Negative); Color Urine Dark Yellow; Glucose Urine UA Negative (Negative); Ketones Urine Trace (Negative); Leukocyte Esterase Urine Trace (Negative); Nitrite Urine Negative (Negative); Protein Urine 3+ (Negative); Specific Gravity Urine 1.015 (1.000-1.030); Urobilinogen Urine Negative (Negative)
[2023-10-28 02:28] LABS: Albumin Level 3.5 gm/dl (3.4-5.0); BUN Creatinine Ratio 40.6 (10-20); Bilirubin Direct 0.6 mg/dl (0-0.2); Bilirubin,Total 1.6 mg/dl (0.2-1.0); Calcium 9.3 mg/dl (8.6-10.3); Est GFR (African American) 35.9 ml/min; Magnesium 2.3 mg/dl (1.7-2.4); Potassium 4.9 mmol/L (3.5-5.1); Total Protein 5.1 gm/dl (6.0-8.3); Troponin I High Sensitivity 34.1 pg/ml (0-14)
[2023-10-28] MEDS ORDERED: ACETAMINOPHEN 1,000 MG/100 ML VIAL IV STA (02:40)
[2023-10-28] MEDS ORDERED: ACETAMINOPHEN 500 MG TAB PO STA (03:14)
--- NOTE | 2023-10-28 03:52 | History & Physical Report ---
Date of Service October 28, 2023 Assessment & Plan (1) Shortness of breath: Plan: 77 year old female admitted for sepsis of unknown cause and shortness of breath. Shortness of breath/Fevers: -Patient has been tachycardic, spiked fever up to 38.5C, WBC 16.19. -Procal 0.56, lactate 2.2, troponin 39.7, T bili 1.6, neutrophil 14.90 -UA unremarkable for infection. -CXR diffuse opacification of the left and right lower lung daly. -Possibly lung source vs skin source for origin of elevated white count and fevers. -Given past history of wounds and venous stasis may be more related to soft tissue infection, however patient's legs tightly wrapped, difficult to visualize. -Will consult wound care. -Given vancomycin and cefepime in the ER, will continue on cefepime q8h 2gm and place on daptomycin for MRSA coverage of soft tissue. -CXR may be either infectious process vs fluid overload. Patient has mixed picture as she appears dry but grossly edematous. -Will start on Lasix 40mg IV BID for possible fluid overload aspect. -Per nephrology note from last admission goal weight 206lbs, patient currently around 245-250lbs. -Trend CBC and kidney function closely to check for improvement in symptoms. -Admit to telemetry for monitoring. Chronic venous insufficiency: -As above, history of chronic venous insufficiency. Recently had left GSV endovenous ablation with Dr. Downs. -Likely large amount of third spacing involved with fluid overload. -Will give 250mg 5% Albumin. -Consulted wound care for management of lower extremity wounds. -Continue wrappings. Elevated serum creatinine: -Creatinine elevated at 1.60 on admission. -History of renal transplant, on 2 immunomodulators. -Baseline 1.3 to 1.5. -Likely pre-renal cause of mild bump. -Continue with Lasix 40mg IV BID, antibiotic treatment for source of sepsis as above. -Continue to trend. Elevated hemoglobin: -Hemoglobin 17.3, baseline 12-14. -Elevated hemoglobin paints a picture to go along with possibly hypovolemic, platelets low but around baseline. -Repleted 1L NSS in the ER. -Will hold off on further fluid. -Trend hemoglobin with CBC. T2DM: -Chronic, ordered SSI along with 20U lantus, ACHS. HTN: -Continue home metoprolol, will hold lisinopril with mildly bumped creatinine, if creat comes down with diuresis can add back on. HLD: -Continue home simvastatin. Monocloncal gammopathy: -Hx of monoclonal gammopathy, s/p 6 cycles CyBorD. -[facility] Gout: -Will continue home allopurinol at lower dose of 100mg BID due to creatinine bump. Hypothyroidism: -Chronic, Continue synthroid History of kidney transplant: -Noted. continue mycophenolate mofetil, tacrolimus. F/E/N/GI: Salt restricted diet, fluid restriction 2L, T2DM carb consistent DVT Prophylaxis: Eliquis Code status: DNR/DNI Dispo: Med tele. (2) Chronic venous insufficiency: (3) Fever: (4) Elevated serum creatinine: (5) HLD (hyperlipidemia): (6) Diabetes: (7) CHF (congestive heart failure): (8) History of kidney transplant: (9) Atrial fibrillation: (10) Hypothyroidism: (11) Long-term current use of tacrolimus: (12) Monoclonal gammopathy: (13) HTN (hypertension): History of Present Illness Chief Complaint: Shortness of breath Primary Care Provider: Jennifer Crum MD Delmi is a 77 year old female w/ PmHx diabetic CKD w/ renal transplant 1995, T2DM, atrial fibrillation on Eliquis, hypothyroidism, hyperlipidemia, gout, hyperparathyroidism, chronic venous stasis and lower extremity edema coming in for increased shortness of breath and increased swelling. Patient states that over the past week she's had increased shortness of breath with exertion but not as much at rest as she is still able to sleep without issue. At this time her most pressing concern is her pain related to her sacrum as there is a spot on the R that is causing her intense pain as she has been sitting on it for a while. She denies feeling feverish or chills, denies any diarrhea, dysuria, urinary incontinence, urinary frequency. She was recently admitted to the hospital in May-June for fluid overload. She had a fall back in June after her discharge which led her to stay on the ground for a while until someone found her. She feels like she has gained some weight since that time. In the ER WBC 16.19, Hgb 17.3, platelet 111, creatinine 1.60, lactate 2.2, T bili 1.6, troponin 39.7, procal 0.56. CXR diffuse opacification of the left and right lower lung daly. Allergies Allergy/AdvReac Type Severity Reaction Status Date / Time adhesive Allergy Intermediate ERYTHEMA Verified 10/19/23 10:47 WITH ADHESIVE TAPE, blisters Home Medications Medication Instructions Recorded Confirmed Type multivitamin 1 tab PO QAM ##0 05/23/06 10/28/23 History omega 4-mbj-wrc-fish oil 1,000 mg 1,000 mg PO BID ##0 10/30/10 10/28/23 History (120 mg-180 mg) capsule (Fish Oil) folic acid 1 mg tablet 1 mg PO QAM ##0 05/07/12 10/28/23 History lutein 20 mg capsule 20 mg PO QPM ##0 11/11/14 10/28/23 History lancets 33 gauge (OneTouch Delica #100 ea 06/15/19 10/19/23 History Plus Lancet) tacrolimus 0.5 mg capsule, 0.5 mg PO Q12 08/28/19 10/28/23 History immediate-release mycophenolate mofetil 250 mg 250 mg PO Q12 10/15/20 10/28/23 History capsule fexofenadine 180 mg tablet 180 mg PO DAILY PRN Allergy 05/14/22 10/28/23 History (Mariya Allergy) Symptoms pen needle, diabetic 32 gauge x #100 ea 08/17/22 10/19/23 Rx 5/32" (BD Ultra-Fine Germania Pen Needle) insulin glargine 100 unit/mL (3 5 unit (0.05 mL) subcut QAM #15 mL 11/30/22 10/28/23 Rx mL) subcutaneous pen (Lantus Solostar U-100 Insulin) blood sugar diagnostic #100 ea 03/15/23 10/19/23 Rx apixaban 5 mg tablet (Eliquis) 5 mg PO BID #180 tabs 04/29/23 10/28/23 Rx magnesium oxide 400 mg (241.3 mg 400 mg PO BID #180 tabs 06/16/23 10/28/23 Rx magnesium) tablet acetaminophen 650 mg 650 mg PO Q4H PRN Pain 06/22/23 10/28/23 History tablet,extended release albuterol sulfate 90 mcg/actuation 1 inh inhalation QID 06/22/23 10/28/23 History aerosol inhaler xuuzvoob-qjc- 250 mg-dha 90 1 cap PO BID 06/22/23 10/28/23 History mg-epa 160 lx-jafr-lawo-zeax capsule (Ocuvite Adult 50 Plus) lisinopril 5 mg tablet 5 mg PO DAILY #90 tabs 07/27/23 10/28/23 Rx simvastatin 20 mg tablet 20 mg PO HS #90 tabs 08/25/23 10/28/23 Rx levothyroxine 112 mcg tablet 112 mcg PO DAILY #60 tabs 08/31/23 10/28/23 Rx famotidine 20 mg tablet 20 mg PO BID #60 tabs 09/02/23 10/28/23 Rx metoprolol tartrate 50 mg tablet 50 mg PO BID #60 tabs 09/05/23 10/28/23 Rx denosumab 60 mg/mL subcutaneous 60 mg subcut Q6MO #1 mL 09/20/23 10/28/23 Rx syringe allopurinol 300 mg tablet 300 mg PO AMPM 10/28/23 10/28/23 History furosemide 40 mg tablet 80 mg PO BID 10/28/23 10/28/23 History Past Med/Surg History Medical History (Updated 10/29/23 @ 12:25 by Jina Giraldo MD) Nephrotic syndrome Microscopic hematuria Proteinuria Acute kidney injury Elevated troponin Personal history of diabetic foot ulcer Diabetic peripheral neuropathy associated with type 2 diabetes mellitus Paroxysmal atrial fibrillation Proliferative glomerulonephritis with nephrotic syndrome Mitral regurgitation Bilateral leg edema Long-term current use of tacrolimus Thrombocytopenia Atrial fibrillation with RVR Hyperparathyroidism Osteoporosis Hypothyroidism Polycystic kidney disease HX > DR. ROCK > [facility] > [facility] Macular degeneration BILAT History of dysplastic nevus Hypercholesteremia HTN (hypertension) Gastric ulcer RESOLVED Atrial fibrillation DX 2013 > NO CARDIOVERSIONS Surgical History History of tonsillectomy History of squamous cell carcinoma in situ of skin WITH REMOVAL TO HEAD Hx of cholecystectomy History of hysterectomy Kidney transplant recipient RIGHT > 1995 History of renal transplant (07/02/11) Family History Mother Diabetes Father Kidney disease Hypertension Son Kidney disease Sister Kidney disease Aunt Breast cancer Denies family history of Ovarian cancer Prostate cancer Myocardial infarction Colorectal cancer Social History Smoking Status: Never smoker Tobacco Type: Cigarettes Second Hand Exposure: No; Do You Dip or Chew Tobacco: No; Hx Alcohol Use: No Hx Substance Use: No Preferred Language: Syriac Communication Ability: Effective Visual Impairment: No Limitations Hearing Ability: Normal Tooth Cutter Required: No Beliefs That Will Affect Care: None marital status: Current Living Situation: Spouse and Family Current Living Situation Comment: Lives at home with current occupational status: retired Feels Safe at Home: Yes Diet: low salt caffeine: No Dental Care, Regularly: Yes Physical Activity Frequency: Does not Exercise Seatbelt Use: always Sunscreen Use: Yes Assistive Devices: Walker Review of Systems Review of Systems: As per HPI. Physical Exam Constitutional: WD/WN, vitals as above Eyes: PERRL, conjunctivae normal, anicteric sclerae ENMT: Dry appearance to mouth and mucous membranes. Respiratory: Diminished breath sounds bilaterally, clear to auscultation. Cardiovascular: Rate/Rhythm: regular rhythm and + tachycardic Heart Sounds: normal S1 and normal S2 Diffuse edema from the lower extremities up to the hip, 3+ pitting edema. patient's legs have wrappings up to knee. Gastrointestinal (Abdomen): normal bowel sounds, soft, nontender, no hepatosplenomegaly Psychiatric: A+Ox3, euthymic affect Results & Data Results & Data Vital Signs (Past 12 Hours) Vital Signs Temp Pulse Resp BP Pulse Ox O2 Del Method O2 Flow Rate 10/28/23 03:30 120 H 22 131/77 95 Room Air 10/28/23 03:00 116 H 28 H 132/97 96 Room Air 10/28/23 02:30 120 H 23 154/110 H 97 Room Air 10/28/23 02:00 129 H 23 119/89 95 Nasal Cannula 2 10/28/23 01:33 38.5 C H 10/28/23 01:30 127 H 22 140/73 97 Nasal Cannula 2 10/28/23 01:00 120 H 28 H 115/91 93 Nasal Cannula 2 10/28/23 00:34 118 H 24 93 Nasal Cannula 2 10/28/23 00:33 113 H 19 138/79 97 Nasal Cannula 2 10/28/23 00:30 130 H 10/28/23 00:22 122 H 10/28/23 00:10 37.2 C 122 H 26 H 118/89 93 Nasal Cannula 2 10/28/23 00:10 97 Room Air, Nasal Cannula Supervising Physician Co-Signing Physician Notes Patient seen and examined, chart reviewed, case discussed with Dr. Welch and I agree with the assessment and plan as above. In brief, patient is a 77yo female s/p renal transplant in 1995, DM, AF presenting with shortness of breath and increased swelling. Febrile with leukocytosis On exam she is resting comfortably,, NAD MMM, Neck supple Heart +S1/S2, regular, no m/r/g Lungs CTA Abd soft, NT/ND Ext - edema 3+ with leg wrappings in place Labs and images reviewed Assessment/Plan SOB, etiology unclear. Also with fever, leukocytosis in immunocompromised patie nt -Follow cultures -Empiric antibiotics -Cefepime and Daptomycin -Diuresis with Lasix 40mg IV BID - per review, goal weight is 206# - patient now sitting at 245 per our measurement -Remainder as above Resident Activity Tracking Resident Involvement: Resident Care Provided Care Provided: Adult Hospital Medicine (10) Hypothyroidism Hypothyroidism type: unspecified Qualified Code(s): E03.9 - Hypothyroidism, unspecified (13) HTN (hypertension) Hypertension type: primary hypertension Qualified Code(s): I10 - Essential (primary) hypertension
[2023-10-28] MEDS ORDERED: DEXTROSE 50% 50 ML SYRINGE IV PRN (07:09)
[2023-10-28] MEDS ORDERED: GLUCOSE 40% GEL 15 GM TUBE PO PRN (07:09)
[2023-10-28] MEDS ORDERED: ALBUMIN 5% 250 ML IV ONE (07:09)
[2023-10-28] MEDS ORDERED: GLUCOSE 10 TAB/TUBE PO PRN (07:09)
[2023-10-28] MEDS ORDERED: GLUCAGON FOR INJ 1 MG VIAL SQ PRN (07:09)
[2023-10-28] MEDS ORDERED: ACETAMINOPHEN 325 MG TAB PO PRN (07:09)
[2023-10-28] MEDS ORDERED: ONDANSETRON INJ 2 MG/ML 2 ML VIAL IV PRN (07:09)
[2023-10-28] MEDS ORDERED: CARBOHYDRATES FOR HYPOGLYCEMIA PO PRN (07:09)
--- NOTE | 2023-10-28 07:55 | XRay Report ---
XR chest 1V portable CLINICAL HISTORY: Sepsis TECHNIQUE: Single frontal radiograph of the chest was obtained. Comparison: Comparison is made to chest radiograph 07/18/2023 FINDINGS: No lines and tubes are seen. Cardiomegaly is noted. Bilateral lower lung predominant airspace opaciti es are seen. No evidence of pleural effusion or pneumothorax. IMPRESSION: Bilateral lower lung predominant airspace opacities which may represent atelectasis, pneumonia, and/o r aspiration. ACT 112: Negative or not required by law. Electronically signed by: Junito Serna M.D. 10/28/2023 7:54 AM
[2023-10-28] MEDS: ALBUTEROL HFA 8 GM INHALER INH SCH ×4 (08:55→21:16)
[2023-10-28] MEDS ORDERED: LANTUS PER UNIT CHARGE SQ SCH (09:00)
[2023-10-28] MEDS ORDERED: FUROSEMIDE 40 MG/4 ML VIAL IV SCH (09:00)
[2023-10-28] MEDS ORDERED: DAPTOmycin 450 MG in SYRINGE 0 ML IV SCH (09:00)
--- NOTE | 2023-10-28 09:00 | Nephrology Consultation ---
Date of Consultation October 28, 2023 Assessment & Plan (1) Fever: (2) Kidney transplant recipient: (3) CHF (congestive heart failure): Plan Ms. Page has a DDRT. Kidney function is stable at this time (baseline Cr 1.6). Continue outpatient regimen of Tacrolimus and MMF. Monitor PRP. She presents w/ a low grade fever and leukocytosis. CXR shows bibasilar infiltrates vs. pulmonary edema. Respiratory Biofire testing was negative. Agree w/ broad spectrum antibiotic therapy. Will await results of blood and urine cultures. Clinically patient is markedly volume overloaded. She reports a 44 lb weight gain and dietary sodium indiscretion. Will change Furosemide from 40 to 80 mg IV BID and monitor UO, kidney function. History of Present Illness Attending Physician: Jovanna Mariano MD History of Present Illness Mrs. Page is a 77 year old white female who is seen at the request of the [facility] Hospitalist [facility] for evaluation of DDRT, CHF. Information for the HPI is obtained from direct patient interview and review of EMR. 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 Martinez). Her post transplant Cr was 1.0 but has since risen to 1.3-1.6. Her immunosuppressive regimen currently consists of Tacrolimus 0.5 mg po BID, MMF 250 mg po BID. Mrs. Page's medical history is significant for ADPKD, AODM, HTN, atrial fibrillation and osteoporosis. 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 Mrs. Page presented to the EMD today for evaluation of dyspnea and progressive LE swelling. She reports that her weight is up 44 lbs since last admission. Although she has been compliant with her outpatient diuretic regimen she notes that her diet is high in sodium. EMD evaluation has revealed T 38.5, WBC 16K, negative urinalysis, CXR w/ bilateral LL infiltrate. Admission weight 250 lbs, target weight of 206 lbs. Allergies Allergy/AdvReac Type Severity Reaction Status Date / Time adhesive Allergy Intermediate ERYTHEMA Verified 10/19/23 10:47 WITH ADHESIVE TAPE, blisters Home Medications Medication Instructions Recorded Confirmed Type multivitamin 1 tab PO QAM ##0 05/23/06 10/28/23 History omega 3-qgn-wyg-fish oil 1,000 mg 1,000 mg PO BID ##0 10/30/10 10/28/23 History (120 mg-180 mg) capsule (Fish Oil) folic acid 1 mg tablet 1 mg PO QAM ##0 05/07/12 10/28/23 History lutein 20 mg capsule 20 mg PO QPM ##0 11/11/14 10/28/23 History lancets 33 gauge (OneTouch Delica #100 ea 06/15/19 10/19/23 History Plus Lancet) tacrolimus 0.5 mg capsule, 0.5 mg PO Q12 08/28/19 10/28/23 History immediate-release mycophenolate mofetil 250 mg 250 mg PO Q12 10/15/20 10/28/23 History capsule fexofenadine 180 mg tablet 180 mg PO DAILY PRN Allergy 05/14/22 10/28/23 History (Mariya Allergy) Symptoms pen needle, diabetic 32 gauge x #100 ea 08/17/22 10/19/23 Rx 5/32" (BD Ultra-Fine Germania Pen Needle) insulin glargine 100 unit/mL (3 5 unit (0.05 mL) subcut QAM #15 mL 11/30/22 10/28/23 Rx mL) subcutaneous pen (Lantus Solostar U-100 Insulin) blood sugar diagnostic #100 ea 03/15/23 10/19/23 Rx apixaban 5 mg tablet (Eliquis) 5 mg PO BID #180 tabs 04/29/23 10/28/23 Rx magnesium oxide 400 mg (241.3 mg 400 mg PO BID #180 tabs 06/16/23 10/28/23 Rx magnesium) tablet acetaminophen 650 mg 650 mg PO Q4H PRN Pain 06/22/23 10/28/23 History tablet,extended release albuterol sulfate 90 mcg/actuation 1 inh inhalation QID 06/22/23 10/28/23 History aerosol inhaler [id number] 250 mg-dha 90 1 cap PO BID 06/22/23 10/28/23 History mg-epa 160 md-ahyr-dtiz-zeax capsule (Ocuvite Adult 50 Plus) lisinopril 5 mg tablet 5 mg PO DAILY #90 tabs 07/27/23 10/28/23 Rx simvastatin 20 mg tablet 20 mg PO HS #90 tabs 08/25/23 10/28/23 Rx levothyroxine 112 mcg tablet 112 mcg PO DAILY #60 tabs 08/31/23 10/28/23 Rx famotidine 20 mg tablet 20 mg PO BID #60 tabs 09/02/23 10/28/23 Rx metoprolol tartrate 50 mg tablet 50 mg PO BID #60 tabs 09/05/23 10/28/23 Rx denosumab 60 mg/mL subcutaneous 60 mg subcut Q6MO #1 mL 09/20/23 10/28/23 Rx syringe allopurinol 300 mg tablet 300 mg PO AMPM 10/28/23 10/28/23 History furosemide 40 mg tablet 80 mg PO BID 10/28/23 10/28/23 History Patient History Medical History Microscopic hematuria Proteinuria Acute kidney injury Elevated troponin Personal history of diabetic foot ulcer Diabetic peripheral neuropathy associated with type 2 diabetes mellitus Paroxysmal atrial fibrillation Proliferative glomerulonephritis with nephrotic syndrome Mitral regurgitation Bilateral leg edema Long-term current use of tacrolimus Thrombocytopenia Atrial fibrillation with RVR Hyperparathyroidism Osteoporosis Hypothyroidism Polycystic kidney disease HX > DR. ROCK > [facility] > [facility] MARTINEZ [facility] Macular degeneration BILAT History of dysplastic nevus Hypercholesteremia HTN (hypertension) Gastric ulcer RESOLVED Atrial fibrillation DX 2013 > NO CARDIOVERSIONS Surgical History History of tonsillectomy History of squamous cell carcinoma in situ of skin WITH REMOVAL TO HEAD Hx of cholecystectomy History of hysterectomy Kidney transplant recipient RIGHT > 1995 History of renal transplant (07/02/11) Family History Mother Diabetes Father Kidney disease Hypertension Son Kidney disease Sister Kidney disease Aunt Breast cancer Denies family history of Ovarian cancer Prostate cancer Myocardial infarction Colorectal cancer Social History Smoking Status: Never smoker Tobacco Type: Cigarettes Second Hand Exposure: No; Do You Dip or Chew Tobacco: No; Hx Alcohol Use: No Hx Substance Use: No Preferred Language: Pashto Communication Ability: Effective Visual Impairment: No Limitations Hearing Ability: Normal Teachers Assistant Required: No Beliefs That Will Affect Care: None marital status: Current Living Situation: Spouse Current Living Situation Comment: Lives at home with current occupational status: retired Feels Safe at Home: Yes Diet: low salt caffeine: No Dental Care, Regularly: Yes Physical Activity Frequency: Does not Exercise Seatbelt Use: always Sunscreen Use: Yes Assistive Devices: Walker Review of Systems Constitutional: no fever Eyes: no problem reported Ear, Nose, Mouth, Throat: no problem reported Respiratory: no cough and no dyspnea Cardiovascular: no chest pain Gastrointestinal: no abdominal pain, no nausea, no vomiting and no diarrhea/loose stools Genitourinary: no dysuria, no hematuria and no flank pain Integumentary: no rash Physical Exam Constitutional: + ill appearing Eyes: PERRL, conjunctivae normal, anicteric sclerae ENMT: external ear and nose normal, oropharynx normal Neck: trachea midline, no thyromegaly Respiratory: Auscultation: + rales (diminished breath sounds at bases) Cardiovascular: Rate/Rhythm: regular rhythm and + tachycardic Extremities: + edema (tense LE swelling) Gastrointestinal (Abdomen): normal bowel sounds, soft, nontender, no h epatosplenomegaly RLQ renal allograft is NT to palpation Neurologic: awake; not confused Results & Data Vital Signs (Past 12 Hours) Vital Signs Temp Pulse Resp BP Pulse Ox Pulse Ox O2 Del Method 10/28/23 07:30 98 10/28/23 07:06 100 H 10/28/23 07:00 124/58 L 10/28/23 07:00 96 H 20 94 10/28/23 05:00 107 H 27 H 96 Nasal Cannula 10/28/23 04:30 106 H 15 122/74 96 Room Air 10/28/23 04:15 111 H 10/28/23 04:00 114 H 22 129/80 94 Room Air 10/28/23 03:55 38.1 C H 10/28/23 03:30 120 H 22 131/77 95 Room Air 10/28/23 03:00 116 H 28 H 132/97 96 Room Air 10/28/23 02:30 120 H 23 154/110 H 97 Room Air 10/28/23 02:00 129 H 23 119/89 95 Nasal Cannula 10/28/23 01:33 38.5 C H 10/28/23 01:30 127 H 22 140/73 97 Nasal Cannula 10/28/23 01:00 120 H 28 H 115/91 93 Nasal Cannula 10/28/23 00:34 118 H 24 93 Nasal Cannula 10/28/23 00:33 113 H 19 138/79 97 Nasal Cannula 10/28/23 00:30 130 H 10/28/23 00:22 122 H 10/28/23 00:10 37.2 C 122 H 26 H 118/89 93 Nasal Cannula 10/28/23 00:10 97 Room Air, Nasal Cannula O2 Del Method O2 Flow Rate O2 Flow Rate 10/28/23 07:30 Nasal Cannula 2 10/28/23 07:06 10/28/23 07:00 10/28/23 07:00 10/28/23 05:00 2 10/28/23 04:30 10/28/23 04:15 10/28/23 04:00 10/28/23 03:55 10/28/23 03:30 10/28/23 03:00 10/28/23 02:30 10/28/23 02:00 2 10/28/23 01:33 10/28/23 01:30 2 10/28/23 01:00 2 10/28/23 00:34 2 10/28/23 00:33 2 10/28/23 00:30 10/28/23 00:22 10/28/23 00:10 2 10/28/23 00:10 Laboratory Results Laboratory Results WBC 16.19 K/ul (4.8-10.8) H 10/28/23 00:25 RBC 5.60 M/uL (4.20-5.40) H 10/28/23 00:25 Hgb 17.3 g/dl (12.0-16.0) H 10/28/23 00:25 Hct 51.7 % (37.0-47.0) H 10/28/23 00:25 MCV 92.3 fL (80.0-100.0) 10/28/23 00:25 MCH 30.9 pg (25.0-34.0) 10/28/23 00:25 MCHC 33.5 g/dL (32.0-36.0) 10/28/23 00:25 RDW Std Deviation 72.7 fL (36.4-46.3) H 10/28/23 00:25 RDW Coeff of Lidya 22.7 % (11.5-14.5) H 10/28/23 00:25 Plt Count 111 K/uL (130-400) L 10/28/23 00:25 Immature Gran % (Auto) 0.9 % 10/28/23 00:25 Neut % (Auto) 92.0 % 10/28/23 00:25 Lymph % (Auto) 2.0 % 10/28/23 00:25 [place] % (Auto) 4.6 % 10/28/23 00:25 Eos % (Auto) 0.0 % 10/28/23 00:25 Baso % (Auto) 0.5 % 10/28/23 00:25 Neut # (Auto) 14.90 K/uL (1.40-6.50) H 10/28/23 00:25 Lymph # (Auto) 0.32 K/uL (1.20-3.40) L 10/28/23 00:25 [place] # (Auto) 0.74 K/uL (0.11-0.59) H 10/28/23 00:25 Eos # (Auto) 0.00 K/uL (0.00-0.50) 10/28/23 00:25 Baso # (Auto) 0.08 K/uL (0.00-0.20) 10/28/23 00:25 Immature Gran # (Auto) 0.15 K/uL (0.01-0.20) 10/28/23 00:25 Polychromasia 1+ 10/28/23 00:25 Anisocytosis Present 10/28/23 00:25 Sodium 142 mmol/L (136-145) 10/28/23 01:39 Potassium 4.9 mmol/L (3.5-5.1) 10/28/23 01:39 Chloride 105 mmol/L (98-107) 10/28/23 01:39 Carbon Dioxide 26 mmol/L (21-32) 10/28/23 01:39 Anion Gap 11 (3-11) 10/28/23 01:39 BUN 65 mg/dl (6-23) H 10/28/23 01:39 Creatinine 1.60 mg/dl (0.6-1.2) H 10/28/23 01:39 Est Cr Clr Drug Dosing 36.0 ml/min 10/28/23 01:39 Est GFR ( Amer) 35.9 ml/min 10/28/23 01:39 Est GFR (Non-Af Amer) 31.0 ml/min 10/28/23 01:39 BUN/Creatinine Ratio 40.6 (10-20) H 10/28/23 01:39 Glucose 110 mg/dl (70-99(Fasting)) H 10/28/23 01:39 POC Glucose 91 mg/dl (70-99) 10/28/23 07:27 Lactate 2.2 mmol/L (0.4-2.0) H* 10/28/23 03:23 Calcium 9.3 mg/dl (8.6-10.3) 10/28/23 01:39 Magnesium 2.3 mg/dl (1.7-2.4) 10/28/23 01:39 Total Bilirubin 1.6 mg/dl (0.2-1.0) H 10/28/23 01:39 Direct Bilirubin 0.6 mg/dl (0-0.2) H 10/28/23 01:39 AST 18 U/L (13-39) 10/28/23 01:39 ALT 7 U/L (7-52) 10/28/23 01:39 Alkaline Phosphatase 86 U/L (34-104) 10/28/23 01:39 Troponin I High Sens 39.7 pg/ml (0-14) H 10/28/23 03:23 Total Protein 5.1 gm/dl (6.0-8.3) L 10/28/23 01:39 Albumin 3.5 gm/dl (3.4-5.0) 10/28/23 01:39 Procalcitonin 0.56 ng/ml (0-0.5) H 10/28/23 00:25 Urine Color Dark Yellow 10/28/23 01:35 Urine Appearance Clear (Clear) 10/28/23 01:35 Urine pH 5.0 (4.5-7.5) 10/28/23 01:35 Ur Specific [place] 1.015 (1.000-1.030) 10/28/23 01:35 Urine Protein 3+ (Negative) H 10/28/23 01:35 Urine Glucose (UA) Negative (Negative) 10/28/23 01:35 Urine Ketones Trace (Negative) H 10/28/23 01:35 Urine Blood Negative (Negative) 10/28/23 01:35 Urine Nitrite Negative (Negative) 10/28/23 01:35 Urine Bilirubin Negative (Negative) 10/28/23 01:35 Urine Urobilinogen Negative (Negative) 10/28/23 01:35 Ur Leukocyte Esterase Trace (Negative) H 10/28/23 01:35 Urine WBC (Auto) 1-5 /hpf (0-5) 10/28/23 01:35 Urine RBC (Auto) 5-10 /hpf (0-4) H 10/28/23 01:35 U Hyaline Cast (Auto) 5-10 /lpf (0-5) H 10/28/23 01:35 U Epithel Cells (Auto) 10-20 /lpf (0-5) H 10/28/23 01:35 Urine Bacteria (Auto) Negative (Negative) 10/28/23 01:35 Adenovirus (PCR) Not Detected (NotDetected) 10/28/23 00:35 B. pertussis DNA (PCR) Not Detected (NotDetected) 10/28/23 00:35 B.parapertussis DNA PCR Not Detected (NotDetected) 10/28/23 00:35 C. pneumoniae DNA (PCR) Not Detected (NotDetected) 10/28/23 00:35 Coronavirus OC43 (PCR) Not Detected (NotDetected) 10/28/23 00:35 Coronavirus HKU1 (PCR) Not Detected (NotDetected) 10/28/23 00:35 Coronavirus 229E (PCR) Not Detected (NotDetected) 10/28/23 00:35 SARS-CoV-2 (PCR) Not Detected (NotDetected) 10/28/23 00:35 Coronavirus NL63 (PCR) Not Detected (NotDetected) 10/28/23 00:35 Human Metapneumovir PCR Not Detected (NotDetected) 10/28/23 00:35 Influenza Type A (PCR) Not Detected (NotDetected) 10/28/23 00:35 Influenza Type B (PCR) Not Detected (NotDetected) 10/28/23 00:35 M. pneumoniae (PCR) Not Detected (NotDetected) 10/28/23 00:35 Parainfluenza 1 (PCR) Not Detected (NotDetected) 10/28/23 00:35 Parainfluenza 2 (PCR) Not Detected (NotDetected) 10/28/23 00:35 Parainfluenza 3 (PCR) Not Detected (NotDetected) 10/28/23 00:35 Parainfluenza 4 (PCR) Not Detected (NotDetected) 10/28/23 00:35 RSV (PCR) Not Detected (NotDetected) 10/28/23 00:35 Entero/Rhino (PCR) Not Detected (NotDetected) 10/28/23 00:35 Impressions Chest X-Ray 10/28/23 00:34 XR chest 1V portable CLINICAL HISTORY: Sepsis TECHNIQUE: Single frontal radiograph of the chest was obtained. Comparison: Comparison is made to chest radiograph 07/18/2023 FINDINGS: No lines and tubes are seen. Cardiomegaly is noted. Bilateral lower lung predominant airspace opacities are seen. No evidence of pleural effusion or pneumothorax. IMPRESSION: Bilateral lower lung predominant airspace opacities which may represent atelectasis, pneumonia, and/or aspiration. ACT 112: Negative or not required by law. Electronically signed by: Junito Serna M.D. 10/28/2023 7:54 AM PG Care Time/CCT Total # of Minutes Spent Total Time Spent with Patient: Total time spent is greater than 50% in coordination of care (as documented) at patient's floor/unit and/or counseling patient: Coding Level of Care Code 01917 IN/OBS CONSULT LVL 5,80M Diagnoses Fever R50.9 Kidney transplant recipient Z94.0 CHF (congestive heart failure) I50.9
[2023-10-28] MEDS: LANTUS PER UNIT CHARGE SQ SCH (09:41)
[2023-10-28] MEDS: FAMOTIDINE 20 MG TAB PO SCH ×2 (09:42→20:45)
[2023-10-28] MEDS: MYCOPHENOLATE MOFETIL 250 MG CAP PO SCH ×2 (09:42→20:48)
[2023-10-28] MEDS: APIXABAN 5 MG TABLET PO SCH ×2 (09:42→20:48)
[2023-10-28] MEDS: MAGNESIUM OXIDE 400 MG TAB PO SCH ×2 (09:42→20:49)
[2023-10-28] MEDS: FOLIC ACID 1 MG TAB PO SCH (09:42)
[2023-10-28] MEDS: allopurinoL 100 MG TAB PO SCH ×2 (09:42→20:49)
[2023-10-28] MEDS: METOPROLOL TARTRATE 50 MG TAB PO SCH ×2 (09:42→20:49)
[2023-10-28] MEDS: LEVOTHYROXINE SODIUM 112 MCG TABLET PO SCH (09:42)
[2023-10-28] MEDS: TACROLIMUS 0.5 MG CAP PO SCH ×2 (09:42→20:48)
[2023-10-28] MEDS: INSULIN ASPART PER UNIT CHARGE SC SCH ×4 (09:43→20:49)
[2023-10-28] MEDS ORDERED: CEFEPIME 2,000 MG in SYRINGE 0 ML IV SCH (10:00)
[2023-10-28] MEDS: FUROSEMIDE 40 MG/4 ML VIAL IV SCH ×2 (12:52→20:46)
[2023-10-28] MEDS: CEFEPIME 2,000 MG in SYRINGE 0 ML IV SCH (13:57)
--- NOTE | 2023-10-28 14:42 | Electrocardiogram Report ---
Test Reason : Blood Pressure : / mmHG Vent. Rate : 127 BPM Atrial Rate : 000 BPM P-R Int : 000 ms QRS Dur : 078 ms QT Int : 314 ms P-R-T Axes : 000 147 085 degrees QTc Int : 456 ms Atrial fibrillation with rapid ventricular response with premature ventricular or aberrantly conducte d complexes Right axis deviation Low voltage QRS Poor R wave progression, consider anterior LA vs. lead placement vs. LVH Abnormal ECG When compared with ECG of 18-JUL-2023 22:23, QRS axis Shifted right Non-specific change in ST segment in Anterior leads Confirmed by Tom Cunningham ([id number]) on 10/28/2023 2:42:06 PM Referred By: REFERRED SELF Confirmed By:Kristopher Cunningham
[2023-10-28] MEDS ORDERED: MICONAZOLE NITRATE POWDER 85 GM EXT PRN (16:40)
--- NOTE | 2023-10-28 18:37 | Hospitalist Progress Note ---
Date of Service October 28, 2023 Assessment & Plan (1) Fever: Plan: Possible sepsis - leukocytosis with WBC 16K, mild lactate and PCT elevation, thrombocytopenia Seems most likely L forefoot cellulitis/wound infection, UTI (abnormal UA culture pending). less likely pneumonia. consider gout flare L foot. resp Biofire neg, blood and urine cx pending, wound cx pending, ordered MRSA nasal swab. -continue cefepime, daptomycin pending cultures -bili slightly elevated but could be related to HF, she has no RUQ pain or tenderness -AM CBC CMP procalcitonin (2) Kidney transplant recipient: Plan: DDRT with CKD 3 Cr up a little bit from recent baseline Consulted Dr. Wilkinson -continue tacrolimus and MMF -daily BMP -severe volume overload - diuretics per inspector screen printing continue furosemide 80 mg iv bid (3) CHF (congestive heart failure): Plan: Acute on chronic diastolic heart failure. mild LVH. Polymer Chemist Dr. Dasilva Severe volume overload on admission with 44# weight gain, anasarca, pulmonary edema -diuretics as above, metoprolol -Echo 10/28 pending -low salt diet, I/O, daily weight, daily BMP Mild HS troponin elevation to 35 demand ischemia related to volume overload no evidence of ACS (4) Chronic venous insufficiency: Plan: 10/26 Underwent LLE venous ablation by Dr. Downs. LLE swelling significantly improved since then -LE duplex due to r/o postprocedural thrombosis Follows with wound clinic - reviewed photos - extensive marielos LE venous stasis disease with bilateral LE venous stasis ulcers, wounds L 2/3rd toes, purplish spots on L toes especially, alicia purplish forefeet unchanged excepting L forefoot seems cellulitic with wound infection -culture L toes wound -consulted wound nurse -no LLE compression wrap for now -continue follow up wound clinic (5) Venous ulcers of both lower extremities: Plan: present on admission, see above (6) Morbid obesity with BMI of 40.0-44.9, adult: (7) Atrial fibrillation: Plan: Continue metoprolol and apixaban (8) HTN (hypertension): Plan: Metoprolol (9) Hypothyroidism: Plan: Cont levothyroxine (10) Mitral regurgitation: Plan: mild (11) Thrombocytopenia: Plan: Thrombocytopenia - repeat CBC in AM, possibly related to sepsis/infection (12) Polycystic kidney disease: Plan DVT ppx: apixaban Dispo: lives with , wheelchair dependent but can transfer Admission and Anticipated Discharge Date Admission Date: October 28, 2023 Physical Exam 2 Physical Exam: PHYSICAL EXAMINATION Last 24h vital signs reviewed, see documentation in flowsheet General: Chronically ill-appearing woman, no distress HEENT: Normocephalic, atraumatic, pupils round and equal, sclerae anicteric, no conjunctival injection, moist mucus membranes Lungs: Slightly increased respiratory effort. Clear to auscultation anteriorly but cant get posterior exam. No RRW Heart: Regular rate and rhythm, no murmurs. Cannot see JVD large neck Abdomen: Soft, nontender, nondistended. Bowel sounds present. Severe edema of abdominal wall/pannus Extremities: Warm, dry, severe right lower extremity edema, left lower extremity 1-2+ edema. Both feet and toes are purplish and ready which is unchanged. Lower extremities are warm. There is erythema of both shins bilaterally and multiple shallow ulcerations unchanged from photos from wound clinic 10/19. Left forefoot seems more warm than right there are 2 shallow ulcerations on second and third toes that are notable for yellowish purulent drainage, these were present on 10/19 photos but were clean-based. There are purpleish lesions on left greater than right toes but these will also present on previous photos Neuro: Alert and oriented x 4, face symmetric, moves 4 extremities well Psych: Normal affect and behavior Results & Data Results & Data Vital Signs (Past 12 Hours) Vital Signs Temp Pulse Pulse Resp BP BP Pulse Ox 10/28/23 16:40 96 H 10/28/23 16:29 10/28/23 16:29 36.3 C L 85 20 101/61 100 10/28/23 15:57 36.6 C 10/28/23 15:31 107/71 10/28/23 15:31 100 H 30 H 93 10/28/23 15:31 10/28/23 15:31 96 H 23 107/71 94 10/28/23 15:31 10/28/23 15:30 89 20 10/28/23 15:26 95 H 10/28/23 15:00 95 H 26 H 10/28/23 15:00 127/70 10/28/23 14:51 86 17 93 10/28/23 14:30 137/71 10/28/23 14:30 86 22 94 10/28/23 14:00 125/67 10/28/23 14:00 92 H 20 93 10/28/23 13:30 90 20 93 10/28/23 13:00 124/73 10/28/23 13:00 87 18 93 10/28/23 12:54 91 H 22 93 10/28/23 12:54 111/60 10/28/23 11:30 100 H 20 96 10/28/23 11:30 131/88 10/28/23 10:30 139/91 10/28/23 10:30 103 H 24 98 10/28/23 10:02 103 H 22 100 10/28/23 10:00 134/82 10/28/23 10:00 108 H 22 99 10/28/23 09:30 134/79 10/28/23 09:30 115 H 28 H 100 10/28/23 09:00 135/72 10/28/23 09:00 94 H 29 H 97 10/28/23 08:55 101 H 22 98 10/28/23 08:30 120/75 10/28/23 08:30 96 H 28 H 95 10/28/23 08:00 101/79 10/28/23 08:00 109 H 26 H 97 10/28/23 07:30 10/28/23 07:06 100 H 10/28/23 07:00 124/58 L 10/28/23 07:00 96 H 20 94 Pulse Ox O2 Del Method O2 Del Method O2 Flow Rate O2 Flow Rate 10/28/23 16:40 10/28/23 16:29 Nasal Cannula 2 10/28/23 16:29 Nasal Cannula 2 10/28/23 15:57 10/28/23 15:31 10/28/23 15:31 Nasal Cannula 2 10/28/23 15:31 Nasal Cannula 2 10/28/23 15:31 Nasal Cannula 2 10/28/23 15:31 Nasal Cannula 2 10/28/23 15:30 10/28/23 15:26 10/28/23 15:00 10/28/23 15:00 10/28/23 14:51 Room Air 10/28/23 14:30 10/28/23 14:30 2 10/28/23 14:00 10/28/23 14:00 Nasal Cannula 2 10/28/23 13:30 Nasal Cannula 2 10/28/23 13:00 10/28/23 13:00 Nasal Cannula 2 10/28/23 12:54 Nasal Cannula 2 10/28/23 12:54 10/28/23 11:30 Nasal Cannula 2 10/28/23 11:30 10/28/23 10:30 10/28/23 10:30 Nasal Cannula 2 10/28/23 10:02 Nasal Cannula 2 10/28/23 10:00 10/28/23 10:00 Nasal Cannula 2 10/28/23 09:30 10/28/23 09:30 Nasal Cannula 2 10/28/23 09:00 10/28/23 09:00 Nasal Cannula 2 10/28/23 08:55 Nasal Cannula 3 10/28/23 08:30 10/28/23 08:30 Nasal Cannula 2 10/28/23 08:00 10/28/23 08:00 Nasal Cannula 2 10/28/23 07:30 98 Nasal Cannula 2 10/28/23 07:06 10/28/23 07:00 10/28/23 07:00 Laboratory Results 10/28/23 00:25 10/28/23 01:39 PG Care Time/CCT Total # of Minutes Spent Total Time Spent with Patient: Total time spent is greater than 50% in coordination of care (as documented) at patient's floor/unit and/or counseling patient: Coding Level of Care Code None Diagnoses Fever R50.9 Kidney transplant recipient Z94.0 CHF (congestive heart failure) I50.9 Chronic venous insufficiency I87.2 Venous ulcers of both lower extremities I83.019; I83.029; L97.919; L97.929 Morbid obesity with BMI of 40.0-44.9, adult E66.01; Z68.41 Paroxysmal atrial fibrillation I48.91 Primary hypertension I10 Hypertension type: primary hypertension Hypothyroidism, unspecified type E03.9 Hypothyroidism type: unspecified Mitral regurgitation I34.0 Thrombocytopenia D69.6 Polycystic kidney disease Q61.3 (8) HTN (hypertension) Hypertension type: primary hypertension Qualified Code(s): I10 - Essential (primary) hypertension (9) Hypothyroidism Hypothyroidism type: unspecified Qualified Code(s): E03.9 - Hypothyroidism, unspecified
--- NOTE | 2023-10-28 18:56 | XCELERA ---
[id number] \\[id number]
[2023-10-28 19:39] LABS: A calco-baum cmplx NotReported Not Detected (NotDetected); Bact fragilis Not Reported Not Detected (NotDetected); Blood Culture Id Panel See PCR Comment (NotDetected); C auris Not Reported Not Detected (NotDetected); CTX-M Resistant Gene Not Detected (NotDetected); Calbicans Not Reported Not Detected (NotDetected); Candida glabrata Not Reported Not Detected (NotDetected); Candida krusei Not Reported Not Detected (NotDetected); Cneoformans/gatti Not Reported Not Detected (NotDetected); Cparapsilosis Not Reported Not Detected (NotDetected); E cloacae compx Not Reported Not Detected (NotDetected); Efaecalis Not Reported Not Detected (NotDetected); Efaecium Not Reported Not Detected (NotDetected); Enterobacterales Not Reported Not Detected (NotDetected); Escherichia coli Not Reported Not Detected (NotDetected); H influenzae Not Reported Not Detected (NotDetected); IMP Resistant Gene Not Detected (NotDetected); K aerogenes Not Reported Not Detected (NotDetected); KPC Resistant Gene Not Detected (NotDetected); Koxytoca Not Reported Not Detected (NotDetected); Kpneumoniae grp Not Reported Not Detected (NotDetected); Lmonocyt Not Reported Not Detected (NotDetected); N meningitidis Not Reported Not Detected (NotDetected); NDM Resistant Gene Not Detected (NotDetected); P aeruginosa Not Reported DETECTED (NotDetected); Proteus spp Not Reported Not Detected (NotDetected); Salmonella spp Not Reported Not Detected (NotDetected); Smarcescens Not Reported Not Detected (NotDetected); Staph lugdunensis Not Reported Not Detected (NotDetected); Staph spp. Not Reported Not Detected (NotDetected); Staphaureus Not Reported Not Detected (NotDetected); Staphepi Not Reported Not Detected (NotDetected); Stenmaltophilia Not Reported Not Detected (NotDetected); Strep agal(GrpB) Not Reported Not Detected (NotDetected); Strep pneum Not Reported Not Detected (NotDetected); Strep pyog (GrpA) Not Reported Not Detected (NotDetected); Strep spp Not Reported Not Detected (NotDetected); VIM Resistant Gene Not Detected (NotDetected)
[2023-10-28 19:55] LABS: Pseudomonas aeruginosa DETECTED (NotDetected)
[2023-10-28] MEDS ORDERED: SIMVASTATIN 20 MG TAB PO SCH (21:00)
[2023-10-29] MEDS: CEFEPIME 2,000 MG in SYRINGE 0 ML IV SCH ×2 (02:19→15:39)
[2023-10-29] MEDS: LEVOTHYROXINE SODIUM 112 MCG TABLET PO SCH (06:31)
[2023-10-29 06:51] LABS: Alanine Aminotransferase 6 U/L (7-52); Albumin Level 2.9 gm/dl (3.4-5.0); Alkaline Phosphatase 64 U/L (34-104); Anion Gap 7 (3-11); Aspartate Aminotransferase 18 U/L (13-39); Bilirubin,Total 1.2 mg/dl (0.2-1.0); Blood Urea Nitrogen 65 mg/dl (6-23); Carbon Dioxide 25 mmol/L (21-32); Chloride 106 mmol/L (98-107); Creatinine Clr Calc Pharmacy 38.1 ml/min; Est GFR (African American) 38.5 ml/min; Est GFR (Non-African American) 33.2 ml/min; Glucose 98 mg/dl (70-99(Fasting)); Potassium 4.7 mmol/L (3.5-5.1); Sodium 138 mmol/L (136-145); Total Protein 4.3 gm/dl (6.0-8.3)
[2023-10-29] MEDS: ALBUTEROL HFA 8 GM INHALER INH SCH ×4 (07:07→19:53)
[2023-10-29 07:56] LABS: Hematocrit (blood only) 44.3 % (37.0-47.0); Hemoglobin 14.6 g/dl (12.0-16.0); Mean Corpuscular Hemoglobin 31.3 pg (25.0-34.0); Mean Corpuscular Volume 94.9 fL (80.0-100.0); Platelet Count 75 K/uL (130-400); RDW Coefficient of Variation 22.4 % (11.5-14.5); RDW Standard Deviation 76.8 fL (36.4-46.3); Red Blood Count 4.67 M/uL (4.20-5.40)
--- NOTE | 2023-10-29 08:04 | Hospitalist Progress Note ---
Date of Service October 29, 2023 Assessment & Plan (1) Fever: Plan: Sepsis due to bacteremia - gram neg rodrigo in blood culture, leukocytosis with WBC 16K, mild lactate and PCT elevation, thrombocytopenia Sources: L forefoot cellulitis/wound infection, UTI (abnormal UA culture pending). less likely pneumonia. consider gout flare L foot. resp Biofire neg, blood - GNR (pseudomonas by molecular) - and urine cx pending, wound cx - GNR, ordered MRSA nasal swab, not done. -continue cefepime -gram neg rodrigo bacteremia - pseudomonas by molecular assay -left foot wound culture with gram neg rodrigo - stop daptomycin. Prior recent wound cultures reviewed - pseudomonas klebsiella and serratia S to cefepime -repeat blood cultures for clearance -bili slightly elevated but could be related to HF, she has no RUQ pain or tenderness - bili improved today with diuresis -AM CBC - wbc improved, CMP improved, procalcitonin - elevated going up to 1.67 c/w infection -order AM CBC CMP (2) Kidney transplant recipient: Plan: DDRT with CKD 3 Cr up a little bit from recent baseline Consulted nephrology, reviewed recs in note -continue tacrolimus and MMF -daily BMP - Cr a little better today -severe volume overload - diuretics per prospecting observer continue furosemide 80 mg iv bid - no decrease in weight or I/O overnight (3) CHF (congestive heart failure): Plan: Acute on chronic diastolic heart failure. mild LVH. [employer] Dr. Dasilva Severe volume overload on admission with 44# weight gain, anasarca, pulmonary edema Echo 10/28 reviewed: normal LVEF 60-65% no rwma's, RV fxn mildly reduced moderately dilated elevated RV pressure, mild-mod MR, mild dilation of IVC all c/w volume overload -diuretics as above, metoprolol -low salt diet, I/O, daily weight, daily BMP Mild HS troponin elevation to 35 demand ischemia related to volume overload no evidence of ACS, no rwma's on echo (4) Chronic venous insufficiency: Plan: 10/26 Underwent LLE venous ablation by Dr. Downs. LLE swelling significantly improved since then -LE duplex due to r/o postprocedural thrombosis Follows with wound clinic - reviewed photos - extensive marielos LE venous stasis disease with bilateral LE venous stasis ulcers, wounds L 2/3rd toes, purplish spots on L toes especially, alicia purplish forefeet unchanged excepting L forefoot seems cellulitic with wound infection -culture L toes wound reviewed see above -consulted wound nurse -no LLE compression wrap for now, infected -continue follow up wound clinic (5) Venous ulcers of both lower extremities: Plan: present on admission, see above (6) Morbid obesity with BMI of 40.0-44.9, adult: (7) Atrial fibrillation: Plan: Continue metoprolol and apixaban (8) HTN (hypertension): Plan: Metoprolol (9) Hypothyroidism: Plan: Cont levothyroxine (10) Mitral regurgitation: Plan: mild (11) Thrombocytopenia: Plan: Thrombocytopenia - reviewed chart, chronic, etiology? dropped 111-->75 but within her previous baseline level. AM CBC (12) Polycystic kidney disease: (13) HLD (hyperlipidemia): Plan: continue simvastatin - resume now not on daptomycin (14) Diabetes: Plan: BG overcontrolled on current regimen, hold glargine and continue correctional/premeal (15) Long-term current use of tacrolimus: (16) Monoclonal gammopathy: Plan: -Hx of monoclonal gammopathy, s/p 6 cycles CyBorD. -[facility] Plan hypothyroidism - continue levothyroxine gout - doubt in flare, continue allopurinol dose reduced for renal function DVT ppx: apixaban - caution platelets 75, chronic thrombocytopenia Dispo: lives with , wheelchair dependent but can transfer Admission and Anticipated Discharge Date Admission Date: October 28, 2023 Subjective Delmi feels much better. Less short of breath but still cough and still on O2. L foot is less painful. No dysuria. Edema/anasarca unchanged. No chest pain. Physical Exam Physical Exam: PHYSICAL EXAMINATION Last 24h vital signs reviewed, see documentation in flowsheet General: Chronically ill-appearing woman, no distress, looks improved HEENT: Normocephalic, atraumatic, pupils round and equal, sclerae anicteric, no conjunctival injection, moist mucus membranes Lungs: mildly increased respiratory effort. Clear to auscultation anteriorly. No RRW Heart: Regular rate and rhythm, no murmurs. Cannot see JVD large neck Abdomen: Soft, nontender, nondistended. Bowel sounds present. Severe edema of abdominal wall/pannus unchanged Extremities: Warm, dry, severe right lower extremity edema, left lower extremity 1-2+ edema. R Both foot and toes are purplish and alicia which is unchanged. Lower extremities are warm. RLE is wrapped entirely in kerlix and smaller than RLE due to recent ablation. Neuro: Alert and oriented x 4, face symmetric, moves 4 extremities well Psych: Normal affect and behavior Results & Data Results & Data Vital Signs (Past 12 Hours) Vital Signs Temp Pulse Pulse Resp BP BP Pulse Ox 10/29/23 07:48 86 10/29/23 07:45 36.7 C 92 H 16 120/68 95 10/29/23 07:08 97 H 17 97 10/29/23 03:20 36.6 C 91 H 20 144/72 H 94 10/29/23 00:34 10/28/23 23:31 36.4 C L 87 20 115/71 93 10/28/23 21:16 102 H 18 98 10/28/23 20:00 O2 Del Method O2 Del Method O2 Flow Rate O2 Flow Rate 10/29/23 07:48 10/29/23 07:45 Nasal Cannula 2 10/29/23 07:08 Nasal Cannula 2 10/29/23 03:20 Nasal Cannula 2 10/29/23 00:34 Nasal Cannula 2 10/28/23 23:31 Nasal Cannula 2 10/28/23 21:16 Nasal Cannula 2 10/28/23 20:00 Nasal Cannula 2 Laboratory Results 10/29/23 10/29/23 10/29/23 Range/Units 12:22 08:12 07:08 WBC 9.30 RBC 4.67 Hgb 14.6 Hct 44.3 MCV 94.9 MCH 31.3 MCHC 33.0 RDW Std Deviation 76.8 H RDW Coeff of Lidya 22.4 H Plt Count 75 L MPV Immature Gran % (Auto) 0.3 Neut % (Auto) 84.9 Lymph % (Auto) 5.4 Gillespie % (Auto) 7.7 Eos % (Auto) 1.1 Baso % (Auto) 0.6 Neut # (Auto) 7.89 H Lymph # (Auto) 0.50 L Gillespie # (Auto) 0.72 H Eos # (Auto) 0.10 Baso # (Auto) 0.06 Immature Gran # (Auto) 0.03 Absolute Nucleated RBC Nucleated RBC % (auto) Neutrophils % (Manual) Band Neutrophils % Lymphocytes % (Manual) Prolymphocyte % Reactive Lymphs % (Man) Monocytes % (Manual) Eosinophils % (Manual) Basophils % (Manual) Metamyelocytes % (Man) Myelocytes % (Man) Promyelocytes % (Man) Blast Cells % (Manual) Plasma Cell % (Manual) Other Cells % Nucleated RBC % Neutrophils # (Manual) Band Neutrophils # Total Absolute Neuts Lymphocytes # (Manual) Prolymphocyte # Reactive Lymphs # Total Abs Lymphocytes Monocytes # (Manual) Eosinophils # (Manual) Basophils # (Manual) Metamyelocytes # (Man) Myelocytes # (Manual) Promyelocytes # (Man) Blast Cells # (Man) Plasma Cell # (Manual) Other Cells # Nucleated RBCs # (Man) Hypersegmented Neuts Hyposegmented Neuts Hypogranular Neuts Large Granular Lymphs # Lrg Granular Lymphs Hairy Cells Smudge Cells Toxic Granulation Toxic Vacuolation Dohle Bodies Bert Rods Platelet Estimate Hypogranular Platelets Giant Platelets Platelet Satelliting RBC Morphology Polychromasia 2+ Hypochromasia Poikilocytosis Basophilic Stippling Anisocytosis Present Microcytosis Macrocytosis Present Spherocytes Pappenheimer Bodies Sickle Cells Target Cells 1+ Tear Drop Cells 1+ Ovalocytes 1+ Stomatocytes Carter-Ellinwood Bodies Echinocytes Acanthocytes (Spur) Rouleaux RBC Agglutinates Schistocytes Sezary Cell Sodium (136-145) mmol/L Potassium (3.5-5.1) mmol/L Chloride (98-107) mmol/L Carbon Dioxide (21-32) mmol/L Anion Gap (3-11) BUN (6-23) mg/dl Creatinine (0.6-1.2) mg/dl Est Cr Clr Drug Dosing ml/min Est GFR ( Amer) ml/min Est GFR (Non-Af Amer) ml/min BUN/Creatinine Ratio (10-20) Glucose (70-99(Fasting)) mg/dl POC Glucose 85 94 (70-99) mg/dl Calcium (8.6-10.3) mg/dl Total Bilirubin (0.2-1.0) mg/dl Direct Bilirubin AST (13-39) U/L ALT (7-52) U/L Alkaline Phosphatase (34-104) U/L Total Protein (6.0-8.3) gm/dl Albumin (3.4-5.0) gm/dl Procalcitonin (0-0.5) ng/ml P. aeruginosa (PCR) (NotDetected) blaIMP Car res Gene PCR (NotDetected) KPC-Carbap Res Gene PCR (NotDetected) blaNDM Car Res Gene PCR (NotDetected) blaVIM Car Res Gene PCR (NotDetected) CTX-M Gene Resistance (PCR) (NotDetected) Bld Cult ID Panel PCR (NotDetected) Blood Parasites ID 10/29/23 10/28/23 10/28/23 Range/Units 05:32 20:06 17:16 WBC Cancelled RBC Cancelled Hgb Cancelled Hct Cancelled MCV Cancelled MCH Cancelled MCHC Cancelled RDW Std Deviation Cancelled RDW Coeff of Lidya Cancelled Plt Count Cancelled MPV Cancelled Immature Gran % (Auto) Cancelled Neut % (Auto) Cancelled Lymph % (Auto) Cancelled Gillespie % (Auto) Cancelled Eos % (Auto) Cancelled Baso % (Auto) Cancelled Neut # (Auto) Cancelled Lymph # (Auto) Cancelled Gillespie # (Auto) Cancelled Eos # (Auto) Cancelled Baso # (Auto) Cancelled Immature Gran # (Auto) Cancelled Absolute Nucleated RBC Cancelled Nucleated RBC % (auto) Cancelled Neutrophils % (Manual) Cancelled Band Neutrophils % Cancelled Lymphocytes % (Manual) Cancelled Prolymphocyte % Cancelled Reactive Lymphs % (Man) Cancelled Monocytes % (Manual) Cancelled Eosinophils % (Manual) Cancelled Basophils % (Manual) Cancelled Metamyelocytes % (Man) Cancelled Myelocytes % (Man) Cancelled Promyelocytes % (Man) Cancelled Blast Cells % (Manual) Cancelled Plasma Cell % (Manual) Cancelled Other Cells % Cancelled Nucleated RBC % Cancelled Neutrophils # (Manual) Cancelled Band Neutrophils # Cancelled Total Absolute Neuts Cancelled Lymphocytes # (Manual) Cancelled Prolymphocyte # Cancelled Reactive Lymphs # Cancelled Total Abs Lymphocytes Cancelled Monocytes # (Manual) Cancelled Eosinophils # (Manual) Cancelled Basophils # (Manual) Cancelled Metamyelocytes # (Man) Cancelled Myelocytes # (Manual) Cancelled Promyelocytes # (Man) Cancelled Blast Cells # (Man) Cancelled Plasma Cell # (Manual) Cancelled Other Cells # Cancelled Nucleated RBCs # (Man) Cancelled Hypersegmented Neuts Cancelled Hyposegmented Neuts Cancelled Hypogranular Neuts Cancelled Large Granular Lymphs Cancelled # Lrg Granular Lymphs Cancelled Hairy Cells Cancelled Smudge Cells Cancelled Toxic Granulation Cancelled Toxic Vacuolation Cancelled Dohle Bodies Cancelled Bert Rods Cancelled Platelet Estimate Cancelled Hypogranular Platelets Cancelled Giant Platelets Cancelled Platelet Satelliting Cancelled RBC Morphology Cancelled Polychromasia Cancelled Hypochromasia Cancelled Poikilocytosis Cancelled Basophilic Stippling Cancelled Anisocytosis Cancelled Microcytosis Cancelled Macrocytosis Cancelled Spherocytes Cancelled Pappenheimer Bodies Cancelled Sickle Cells Cancelled Target Cells Cancelled Tear Drop Cells Cancelled Ovalocytes Cancelled Stomatocytes Cancelled Carter-Ellinwood Bodies Cancelled Echinocytes Cancelled Acanthocytes (Spur) Cancelled Rouleaux Cancelled RBC Agglutinates Cancelled Schistocytes Cancelled Sezary Cell Cancelled Sodium 138 (136-145) mmol/L Potassium 4.7 (3.5-5.1) mmol/L Chloride 106 (98-107) mmol/L Carbon Dioxide 25 (21-32) mmol/L Anion Gap 7 (3-11) BUN 65 H (6-23) mg/dl Creatinine 1.51 H (0.6-1.2) mg/dl Est Cr Clr Drug Dosing 38.1 ml/min Est GFR ( Amer) 38.5 ml/min Est GFR (Non-Af Amer) 33.2 ml/min BUN/Creatinine Ratio 43.0 H (10-20) Glucose 98 (70-99(Fasting)) mg/dl POC Glucose 92 96 (70-99) mg/dl Calcium 8.0 L (8.6-10.3) mg/dl Total Bilirubin 1.2 H (0.2-1.0) mg/dl Direct Bilirubin TNP AST 18 (13-39) U/L ALT 6 L (7-52) U/L Alkaline Phosphatase 64 (34-104) U/L Total Protein 4.3 L (6.0-8.3) gm/dl Albumin 2.9 L (3.4-5.0) gm/dl Procalcitonin 1.67 H (0-0.5) ng/ml P. aeruginosa (PCR) (NotDetected) blaIMP Car res Gene PCR (NotDetected) KPC-Carbap Res Gene PCR (NotDetected) blaNDM Car Res Gene PCR (NotDetected) blaVIM Car Res Gene PCR (NotDetected) CTX-M Gene Resistance (PCR) (NotDetected) Bld Cult ID Panel PCR (NotDetected) Blood Parasites ID Cancelled 10/28/23 Range/Units 00:25 WBC RBC Hgb Hct MCV MCH MCHC RDW Std Deviation RDW Coeff of Lidya Plt Count MPV Immature Gran % (Auto) Neut % (Auto) Lymph % (Auto) Gillespie % (Auto) Eos % (Auto) Baso % (Auto) Neut # (Auto) Lymph # (Auto) Gillespie # (Auto) Eos # (Auto) Baso # (Auto) Immature Gran # (Auto) Absolute Nucleated RBC Nucleated RBC % (auto) Neutrophils % (Manual) Band Neutrophils % Lymphocytes % (Manual) Prolymphocyte % Reactive Lymphs % (Man) Monocytes % (Manual) Eosinophils % (Manual) Basophils % (Manual) Metamyelocytes % (Man) Myelocytes % (Man) Promyelocytes % (Man) Blast Cells % (Manual) Plasma Cell % (Manual) Other Cells % Nucleated RBC % Neutrophils # (Manual) Band Neutrophils # Total Absolute Neuts Lymphocytes # (Manual) Prolymphocyte # Reactive Lymphs # Total Abs Lymphocytes Monocytes # (Manual) Eosinophils # (Manual) Basophils # (Manual) Metamyelocytes # (Man) Myelocytes # (Manual) Promyelocytes # (Man) Blast Cells # (Man) Plasma Cell # (Manual) Other Cells # Nucleated RBCs # (Man) Hypersegmented Neuts Hyposegmented Neuts Hypogranular Neuts Large Granular Lymphs # Lrg Granular Lymphs Hairy Cells Smudge Cells Toxic Granulation Toxic Vacuolation Dohle Bodies Bert Rods Platelet Estimate Hypogranular Platelets Giant Platelets Platelet Satelliting RBC Morphology Polychromasia Hypochromasia Poikilocytosis Basophilic Stippling Anisocytosis Microcytosis Macrocytosis Spherocytes Pappenheimer Bodies Sickle Cells Target Cells Tear Drop Cells Ovalocytes Stomatocytes Carter-Ellinwood Bodies Echinocytes Acanthocytes (Spur) Rouleaux RBC Agglutinates Schistocytes Sezary Cell Sodium (136-145) mmol/L Potassium (3.5-5.1) mmol/L Chloride (98-107) mmol/L Carbon Dioxide (21-32) mmol/L Anion Gap (3-11) BUN (6-23) mg/dl Creatinine (0.6-1.2) mg/dl Est Cr Clr Drug Dosing ml/min Est GFR ( Amer) ml/min Est GFR (Non-Af Amer) ml/min BUN/Creatinine Ratio (10-20) Glucose (70-99(Fasting)) mg/dl POC Glucose (70-99) mg/dl Calcium (8.6-10.3) mg/dl Total Bilirubin (0.2-1.0) mg/dl Direct Bilirubin AST (13-39) U/L ALT (7-52) U/L Alkaline Phosphatase (34-104) U/L Total Protein (6.0-8.3) gm/dl Albumin (3.4-5.0) gm/dl Procalcitonin (0-0.5) ng/ml P. aeruginosa (PCR) DETECTED A (NotDetected) blaIMP Car res Gene PCR Not Detected (NotDetected) KPC-Carbap Res Gene PCR Not Detected (NotDetected) blaNDM Car Res Gene PCR Not Detected (NotDetected) blaVIM Car Res Gene PCR Not Detected (NotDetected) CTX-M Gene Resistance (PCR) Not Detected (NotDetected) Bld Cult ID Panel PCR See PCR Comment (NotDetected) Blood Parasites ID PG Care Time/CCT Total # of Minutes Spent Total Time Spent with Patient: Total time spent is greater than 50% in coordination of care (as documented) at patient's floor/unit and/or counseling patient: Coding Level of Care Code 98938 SUB INP/OBS CARE 3/50MIN Diagnoses Fever R50.9 Kidney transplant recipient Z94.0 CHF (congestive heart failure) I50.9 Chronic venous insufficiency I87.2 Venous ulcers of both lower extremities I83.019; I83.029; L97.919; L97.929 Morbid obesity with BMI of 40.0-44.9, adult E66.01; Z68.41 Paroxysmal atrial fibrillation I48.91 Primary hypertension I10 Hypertension type: primary hypertension Hypothyroidism, unspecified type E03.9 Hypothyroidism type: unspecified Mitral regurgitation I34.0 Thrombocytopenia D69.6 Polycystic kidney disease Q61.3 HLD (hyperlipidemia) E78.5 Diabetes E11.9 Long-term current use of tacrolimus Z79.899 Monoclonal gammopathy D47.2 (8) HTN (hypertension) Hypertension type: primary hypertension Qualified Code(s): I10 - Essential (primary) hypertension (9) Hypothyroidism Hypothyroidism type: unspecified Qualified Code(s): E03.9 - Hypothyroidism, unspecified
[2023-10-29 08:17] LABS: Anisocytosis Present; Basophils # (auto) 0.06 K/uL (0.00-0.20); Basophils % (auto) 0.6 %; Eosinophils % (auto) 1.1 %; Immature Granulocytes # (auto) 0.03 K/uL (0.01-0.20); Immature Granulocytes % (auto) 0.3 %; Lymphocytes % (auto) 5.4 %; Macrocytosis Present; Monocytes # (auto) 0.72 K/uL (0.11-0.59); Monocytes % (auto) 7.7 %; Neutrophils # (auto) 7.89 K/uL (1.40-6.50); Neutrophils % (auto) 84.9 %; Ovalocytes 1+; Polychromasia 2+; Target Cells 1+; Tear Drop Cells 1+
[2023-10-29] MEDS: INSULIN ASPART PER UNIT CHARGE SC SCH ×4 (09:06→20:14)
[2023-10-29] MEDS: LANTUS PER UNIT CHARGE SQ SCH (09:06)
[2023-10-29] MEDS: METOPROLOL TARTRATE 50 MG TAB PO SCH ×2 (09:25→20:22)
[2023-10-29] MEDS: MYCOPHENOLATE MOFETIL 250 MG CAP PO SCH ×2 (09:25→20:22)
[2023-10-29] MEDS: APIXABAN 5 MG TABLET PO SCH ×2 (09:25→20:22)
[2023-10-29] MEDS: FOLIC ACID 1 MG TAB PO SCH (09:25)
[2023-10-29] MEDS: TACROLIMUS 0.5 MG CAP PO SCH ×2 (09:25→20:22)
[2023-10-29] MEDS: FAMOTIDINE 20 MG TAB PO SCH ×2 (09:25→20:22)
[2023-10-29] MEDS: FUROSEMIDE 40 MG/4 ML VIAL IV SCH ×2 (09:25→20:22)
[2023-10-29] MEDS: MAGNESIUM OXIDE 400 MG TAB PO SCH ×2 (09:25→20:22)
[2023-10-29] MEDS: allopurinoL 100 MG TAB PO SCH ×2 (09:25→20:22)
--- NOTE | 2023-10-29 12:10 | Nephrology Progress Note ---
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 40lbs weight gain, bilateral lower extremity edema and left upper extremity edema. She was noted to have 1 episode of fever and there was concern for aspiration and pulmonary infiltrate and currently on empiric antibiotic coverage. At home she was on Lasix 80 mg twice daily and on admission switch to 80 mg IV twice a day and urine output was 875 mL over last 24 hours. Has h/o MGRS and she was treated with cycles of CyBorD in 2019 On admission creatinine was 1.6 and stayed relatively stable overnight creatinine was 1.5 with BUN 65. Although there is concern for dietary indiscretion with high salt in diet wonder whether that is only to blame. Concern for recurrence of MGRS, other underlying glomerular disease including allograft nephropathy. She had multiple hospitalization over last 1 year and previously had detailed discussion with Transplant Nephrology at [facility], and since 24 hour urine proteinuria less than 1 g, renal function relatively stable, renal allograft biopsy was not considered. NS most likely secondary to monoclonal gammopathy of renal significance or underlying proliferative glomerulonephritis. Although she is significantly edematous but she is most likely intravascularly volume contracted with significantly elevated BUN and much higher hemoglobin than her baseline with albumin 2.9. --continue Lasix 80 mg IV twice a day, accurate monitoring of intake and output, aim for net negative. High risk for worsening renal function with aggressive diuresis -- IV albumin 25 gm TID -- continue on tacrolimus 0.5 mg twice a day and CellCept 250 mg twice a day. -- Continue to keep leg and upper extremity elevated, consider using compression stocking for lower extremity, follow low-salt diet. Admission and Anticipated Discharge Date Admission Date: October 28, 2023 Codie Awad was seen and evaluated this morning. She still has shortness of breath but overall feels slightly better today. No fever or chills. Suboptimal response to diuretics urine output only 875 mL but net negative. Renal function staying relatively stable, creatinine 1.5 with BUN 65. Electrolyte acceptable. Blood pressure fair. Review of Systems Review of Systems: Detailed review of system was done and pertinent positives and negatives were mentioned above. Physical Exam Constitutional: WD/WN, vitals as above no acute distress Eyes: + anicteric sclerae Neck: normal visual inspection Respiratory: normal respiratory effort and + cough Auscultation: + crackles (b/l bases); no wheezes Cardiovascular: Rate/Rhythm: regular rate and regular rhythm Heart Sounds: normal S1 and normal S2 Extremities: + edema (2+ b/l LE edema) Gastrointestinal (Abdomen): obese, abdominal wall edema Neurologic: no focal motor deficits Psychiatric: Orientation: alert and oriented x 3 Results & Data Vital Signs (Past 12 Hours) Vital Signs Temp Pulse Pulse Resp BP BP Pulse Ox 10/29/23 12:03 36.4 C L 95 H 18 113/71 94 10/29/23 11:23 92 H 17 95 10/29/23 07:48 86 10/29/23 07:45 36.7 C 92 H 16 120/68 95 10/29/23 07:08 97 H 17 97 10/29/23 03:20 36.6 C 91 H 20 144/72 H 94 10/29/23 00:34 O2 Del Method O2 Del Method O2 Flow Rate O2 Flow Rate 10/29/23 12:03 Room Air 10/29/23 11:23 Nasal Cannula 2 10/29/23 07:48 10/29/23 07:45 Nasal Cannula 2 10/29/23 07:08 Nasal Cannula 2 10/29/23 03:20 Nasal Cannula 2 10/29/23 00:34 Nasal Cannula 2 PG Care Time/CCT Total # of Minutes Spent Total Time Spent with Patient: Total time spent is greater than 50% in coordination of care (as documented) at patient's floor/unit and/or counseling patient: Coding Level of Care Code 24786 SUB INP/OBS CARE 3/50MIN Diagnoses Nephrotic syndrome N04.9 Acute respiratory distress R06.03 Primary hypertension I10 Hypertension type: primary hypertension Hyperparathyroidism E21.3 Anemia D64.9 Anemia type: unspecified type Polycystic kidney disease Q61.3 (3) HTN (hypertension) Hypertension type: primary hypertension Qualified Code(s): I10 - Essential (primary) hypertension (5) Anemia Anemia type: unspecified type Qualified Code(s): D64.9 - Anemia, unspecified
--- NOTE | 2023-10-29 12:41 | Billing Data ---
Date of Service October 28, 2023 Coding Level of Care Code 80309 INT INP/OBS CARE MIN
[2023-10-29] MEDS: ALBUMIN 25% 25 GM/100 ML VIAL IV SCH ×2 (13:17→21:06)
[2023-10-29] MEDS ORDERED: COUGH DROP (SUGAR FREE) LOZ 24 LOZ/1 BOX BUCCAL PRN (16:41)
[2023-10-30] MEDS: CEFEPIME 2,000 MG in SYRINGE 0 ML IV SCH (01:12)
[2023-10-30] MEDS: ALBUMIN 25% 25 GM/100 ML VIAL IV SCH ×3 (04:38→20:39)
[2023-10-30] MEDS: LEVOTHYROXINE SODIUM 112 MCG TABLET PO SCH (06:06)
[2023-10-30 06:57] LABS: Albumin Globulin Ratio 2.8 (0.9-2); Albumin Level 3.6 gm/dl (3.4-5.0); BUN Creatinine Ratio 40.6 (10-20); Bilirubin,Total 1.3 mg/dl (0.2-1.0); Calcium 8.2 mg/dl (8.6-10.3); Creatinine Clr Calc Pharmacy 33.8 ml/min; Est GFR (African American) 33.4 ml/min; Est GFR (Non-African American) 28.8 ml/min; Globulin 1.3 gm/dl (2.5-4.0); Potassium 4.3 mmol/L (3.5-5.1); Total Protein 4.9 gm/dl (6.0-8.3)
[2023-10-30 07:15] LABS: Hematocrit (blood only) 42.9 % (37.0-47.0); Hemoglobin 14.2 g/dl (12.0-16.0); Mean Corpuscular Hemoglobin 31.1 pg (25.0-34.0); Mean Corpuscular Hgb Conc 33.1 g/dL (32.0-36.0); Mean Corpuscular Volume 94.1 fL (80.0-100.0); Platelet Count 74 K/uL (130-400); RDW Coefficient of Variation 22.3 % (11.5-14.5); RDW Standard Deviation 74.9 fL (36.4-46.3); Red Blood Count 4.56 M/uL (4.20-5.40); White Blood Count 8.26 K/ul (4.8-10.8)
[2023-10-30] MEDS: ALBUTEROL HFA 8 GM INHALER INH SCH ×4 (07:15→19:24)
--- NOTE | 2023-10-30 07:33 | Hospitalist Progress Note ---
Date of Service October 30, 2023 Assessment & Plan (1) Acute encephalopathy: Plan: acute toxic and/or metabolic encephalopathy multiple contributing factors including sepsis, hypoxia, renal failure -stop cefepime and change to meropenem, could have cefepime neurotoxicity high risk because of renal dysfunction -check vbg evaluate for hypercarbia --> vbg abnormal with pH 7.27 and pCO2 elevated at 58. Has obesity, not known to have MARIA ESTHER. Lowered O2 sat goal to 88- 92% Will move to PCU, may need bipap if not responding to diuresis. Decrease in mental status should prompt stat abg for respiratory failure -reviewed medlist high risk for continuing clinical deterioration, morbidity mortality and loss of functional status due to severe exacerbation of multiple severe chronic conditions as outlined. (2) Fever: Plan: Sepsis due to pseudomonas bacteremia - leukocytosis with WBC 16K, mild lactate and PCT elevation, worsened thrombocytopenia Sources: L forefoot cellulitis/wound infection wound culture growing pseudomonas, UTI ruled out. less likely pneumonia. consider gout flare L foot but pain improving without gout treatment. resp Biofire neg, correction: UA was negative, culture not submitted -continue changed cefepime to meropenem because or worsening mental status - PSA R to fluoroquinolones -repeat blood cultures for clearance 10/29 - P -will get ID consult -bili slightly elevated but could be related to HF, she has no RUQ pain or tenderness - bili improved with diuresis -leukocytosis resolved, afebrile -CBC CMP reviewed, notable for W normal, bili and Cr slightly up since 10/29 but stable -order AM CBC CMP (3) Kidney transplant recipient: Plan: DDRT with CKD 3, nephrotic syndrome Cr up a little bit from recent baseline Consulted nephrology, reviewed recs in note -continue tacrolimus and MMF -daily BMP - Cr 1.7 today -severe volume overload - discussed with guidance counselor furosemide increased to 160 mg iv bid and metolazone added. Also on IV albumin replacement. I/O+ and no weight today (4) CHF (congestive heart failure): Plan: Acute on chronic diastolic heart failure. mild LVH. Worm Farmer Dr. Dasilva Severe volume overload on admission with 44# weight gain, anasarca, pulmonary edema Echo 10/28 reviewed: normal LVEF 60-65% no rwma's, RV fxn mildly reduced moderately dilated elevated RV pressure, mild-mod MR, mild dilation of IVC all c/w volume overload -diuretics as above, metoprolol -low salt diet, I/O, daily weight, daily BMP -consulted straddle carrier operator Dr. Dasilva Mild HS troponin elevation to 35 demand ischemia related to volume overload no evidence of ACS, no rwma's on echo (5) Chronic venous insufficiency: Plan: 10/26 Underwent LLE venous ablation by Dr. Downs. LLE swelling significantly improved since then -LE duplex due to r/o postprocedural thrombosis - will order in AM Follows with wound clinic - reviewed photos - extensive marielos LE venous stasis disease with bilateral LE venous stasis ulcers, wounds L 2/3rd toes, purplish spots on L toes especially, alicia purplish forefeet unchanged excepting L forefoot seems cellulitic with wound infection -culture L toes wound reviewed see above -consulted wound nurse -no LLE compression wrap for now, infected -continue follow up wound clinic (6) Venous ulcers of both lower extremities: Plan: present on admission, see above (7) Morbid obesity with BMI of 40.0-44.9, adult: Plan: I am concerned for underlying MARIA ESTHER/OHS provoking hypercarbia (8) Atrial fibrillation: Plan: Continue metoprolol and apixaban (9) HTN (hypertension): Plan: Metoprolol (10) Hypothyroidism: Plan: Cont levothyroxine (11) Mitral regurgitation: Plan: mild (12) Thrombocytopenia: Plan: Thrombocytopenia - reviewed chart, chronic, etiology? dropped 111-->75 --> 75 but within her previous baseline level. AM CBC (13) Polycystic kidney disease: (14) HLD (hyperlipidemia): Plan: continue simvastatin - resume now not on daptomycin (15) Diabetes: Plan: BG was overcontrolled, held glargine and continue correctional/premeal normoglycemic last 24h (16) Long-term current use of tacrolimus: (17) Monoclonal gammopathy: Plan: -Hx of monoclonal gammopathy, s/p 6 cycles CyBorD. -[facility] Plan hypothyroidism - continue levothyroxine gout - doubt in flare, continue allopurinol dose reduced for renal function DVT ppx: apixaban - caution platelets 75, chronic thrombocytopenia Dispo: lives with , wheelchair dependent but can transfer Admission and Anticipated Discharge Date Admission Date: October 28, 2023 Subjective more confused and dyspneic today lung sounds more gurgly left foot pain improved since admission no abdominal or chest pain Physical Exam 2 Physical Exam: PHYSICAL EXAMINATION Last 24h vital signs reviewed, see documentation in flowsheet General: ill-appearing woman, looks worse today HEENT: Normocephalic, atraumatic, pupils round and equal, sclerae anicteric, no conjunctival injection, dry mucus membranes Lungs: increased respiratory effort. coarse/gurgly lung sounds. exp wheezes and crackles present Heart: Regular rate and rhythm, no murmurs. Cannot see JVD large neck Abdomen: Soft, nontender, nondistended. Bowel sounds present. Severe edema of abdominal wall/pannus unchanged Extremities: Warm, dry, severe right lower extremity edema, left lower extremity 1-2+ edema. R Both foot and toes are purplish and alicia which is unchanged. Lower extremities are warm. LLE is wrapped entirely in kerlix and smaller than RLE due to recent ablation. L foefoot nontender to palpation Neuro: Alert and oriented x 4 but has been confused per nursing, face symmetric, moves 4 extremities well Psych: Normal affect and behavior Results & Data Results & Data Vital Signs (Past 12 Hours) Vital Signs Temp Pulse Pulse Resp BP Pulse Ox O2 Del Method 10/30/23 07:15 99 H 18 94 Nasal Cannula 10/30/23 02:52 36.6 C 95 H 18 118/70 94 Room Air 10/29/23 22:30 36.4 C L 95 H 18 120/74 96 Nasal Cannula 10/29/23 22:00 93 H 10/29/23 21:00 Room Air 10/29/23 19:55 103 H 18 95 Nasal Cannula O2 Flow Rate 10/30/23 07:15 2 10/30/23 02:52 10/29/23 22:30 2 10/29/23 22:00 10/29/23 21:00 10/29/23 19:55 2 Laboratory Results 10/30/23 05:46 10/30/23 05:46 PG Care Time/CCT Total # of Minutes Spent Total Time Spent with Patient: Total time spent is greater than 50% in coordination of care (as documented) at patient's floor/unit and/or counseling patient: Coding Level of Care Code 94024 SUB INP/OBS CARE 3/50MIN Diagnoses Acute encephalopathy G93.40 Fever R50.9 Kidney transplant recipient Z94.0 CHF (congestive heart failure) I50.9 Chronic venous insufficiency I87.2 Venous ulcers of both lower extremities I83.019; I83.029; L97.919; L97.929 Morbid obesity with BMI of 40.0-44.9, adult E66.01; Z68.41 Paroxysmal atrial fibrillation I48.91 Primary hypertension I10 Hypertension type: primary hypertension Hypothyroidism, unspecified type E03.9 Hypothyroidism type: unspecified Mitral regurgitation I34.0 Thrombocytopenia D69.6 Polycystic kidney disease Q61.3 HLD (hyperlipidemia) E78.5 Diabetes E11.9 Long-term current use of tacrolimus Z79.899 Monoclonal gammopathy D47.2 (9) HTN (hypertension) Hypertension type: primary hypertension Qualified Code(s): I10 - Essential (primary) hypertension (10) Hypothyroidism Hypothyroidism type: unspecified Qualified Code(s): E03.9 - Hypothyroidism, unspecified
[2023-10-30] MEDS: MYCOPHENOLATE MOFETIL 250 MG CAP PO SCH ×2 (08:41→20:39)
[2023-10-30] MEDS: APIXABAN 5 MG TABLET PO SCH ×2 (08:41→20:39)
[2023-10-30] MEDS: allopurinoL 100 MG TAB PO SCH ×2 (08:41→20:40)
[2023-10-30] MEDS: TACROLIMUS 0.5 MG CAP PO SCH ×2 (08:41→20:39)
[2023-10-30] MEDS: METOPROLOL TARTRATE 50 MG TAB PO SCH ×2 (08:42→20:39)
[2023-10-30] MEDS: FAMOTIDINE 20 MG TAB PO SCH ×2 (08:42→20:40)
[2023-10-30] MEDS: MAGNESIUM OXIDE 400 MG TAB PO SCH ×2 (08:43→20:39)
[2023-10-30] MEDS: FOLIC ACID 1 MG TAB PO SCH (08:43)
[2023-10-30] MEDS: FUROSEMIDE 40 MG/4 ML VIAL IV SCH (08:55)
[2023-10-30] MEDS ORDERED: FUROSEMIDE 40 MG/4 ML VIAL IV SCH (09:30)
[2023-10-30] MEDS: INSULIN ASPART PER UNIT CHARGE SC SCH ×4 (09:56→20:40)
[2023-10-30 10:33] LABS: Base Excess VBG -1.6 mEq/L; HCO3 VBG 27 mmol/L; Oxygen Saturation VBG 82.8 %; PCO2 VBG 58 mmHg (38-50); PO2 VBG 51 mmHg; pH VBG 7.27 (7.36-7.41)
[2023-10-30] MEDS: metOLazone 5 MG TABLET PO SCH (10:34)
[2023-10-30] MEDS: MEROPENEM 500 MG in SYRINGE 0 ML IV SCH ×2 (10:35→17:10)
[2023-10-30] MEDS: FUROSEMIDE 160 MG in SODIUM CHLORIDE 0.9% 50 ML IV SCH ×2 (11:04→20:38)
--- NOTE | 2023-10-30 11:54 | Cardiology Consultation ---
Date of Consultation October 30, 2023 Assessment & Plan (1) Acute exacerbation of CHF (congestive heart failure): -significant weight gain leading up to this hospitalization. -dietary indiscretion with salt likely a factor. -diuretic management per Nephrology. (2) Atrial fibrillation: -rate now adequately controlled. -continue rate control and long-term anticoagulation. History of Present Illness Attending Physician: Jovanna Mariano MD History of Present Illness Mrs. Page is a 77-year-old female admitted on October 28 with fever and volume overload. This consultation was ordered to assist in her cardiac management. Of note, patient is well known to me from the outpatient setting. The patient has a longstanding history of diastolic CHF. Prior to this presentation, patient had gained 44 lb likely in part related to dietary indiscretion with salt. Diuretic therapy is being managed by Nephrology currently. In terms of her fever, the patient now has Gram-negative rodrigo bacteremia (likely Pseudomonas). The source was felt secondary to a left foot cellulitis/wound infection. Currently, patient is resting comfortably in bed without complaints. Past medical and surgical history 1. Hypertension 2. Hypercholesterolemia 3. Paroxysmal atrial fibrillation 4. Mild LVH 5. Mild mitral regurgitation 6. Diabetes mellitus 7. Hypothyroidism 8. Hyperparathyroidism 9. Polycystic kidney disease 10. Nephrotic syndrome 11. Diabetic neuropathy 12. Osteoporosis 13. Gastric ulcer 14. Macular degeneration 15. Gout 16. Renal transplant-June 2011 17. Hysterectomy 18. Cholecystectomy 19. Tonsillectomy 20. Left upper extremity fistula 21. Chronic venous insufficiency 22. Left lower extremity venous ablation-October 26, 2023 23. Monoclonal gammopathy Social history and lives with her No tobacco alcohol Family history Noncontributory Review of systems A 10 review systems was undertaken and negative except for that described above. Allergies Allergy/AdvReac Type Severity Reaction Status Date / Time adhesive Allergy Intermediate ERYTHEMA Verified 10/19/23 10:47 WITH ADHESIVE TAPE, blisters Home Medications Medication Instructions Recorded Confirmed Type multivitamin 1 tab PO QAM ##0 05/23/06 10/28/23 History omega 2-sxv-pxv-fish oil 1,000 mg 1,000 mg PO BID ##0 10/30/10 10/28/23 History (120 mg-180 mg) capsule (Fish Oil) folic acid 1 mg tablet 1 mg PO QAM ##0 05/07/12 10/28/23 History lutein 20 mg capsule 20 mg PO QPM ##0 11/11/14 10/28/23 History lancets 33 gauge (OneTouch Delica #100 ea 06/15/19 10/19/23 History Plus Lancet) tacrolimus 0.5 mg capsule, 0.5 mg PO Q12 08/28/19 10/28/23 History immediate-release mycophenolate mofetil 250 mg 250 mg PO Q12 10/15/20 10/28/23 History capsule fexofenadine 180 mg tablet 180 mg PO DAILY PRN Allergy 05/14/22 10/28/23 History (Mariya Allergy) Symptoms pen needle, diabetic 32 gauge x #100 ea 08/17/22 10/19/23 Rx 32" (BD Ultra-Fine Germania Pen Needle) insulin glargine 100 unit/mL (3 5 unit (0.05 mL) subcut QAM #15 mL 11/30/22 10/28/23 Rx mL) subcutaneous pen (Lantus Solostar U-100 Insulin) blood sugar diagnostic #100 ea 03/15/23 10/19/23 Rx apixaban 5 mg tablet (Eliquis) 5 mg PO BID #180 tabs 04/29/23 10/28/23 Rx magnesium oxide 400 mg (241.3 mg 400 mg PO BID #180 tabs 06/16/23 10/28/23 Rx magnesium) tablet acetaminophen 650 mg 650 mg PO Q4H PRN Pain 06/22/23 10/28/23 History tablet,extended release albuterol sulfate 90 mcg/actuation 1 inh inhalation QID 06/22/23 10/28/23 History aerosol inhaler [id number] 250 mg-dha 90 1 cap PO BID 06/22/23 10/28/23 History mg-epa 160 [id number]-jnnn-jtmy-zeax capsule (Ocuvite Adult 50 Plus) lisinopril 5 mg tablet 5 mg PO DAILY #90 tabs 07/27/23 10/28/23 Rx simvastatin 20 mg tablet 20 mg PO HS #90 tabs 08/25/23 10/28/23 Rx levothyroxine 112 mcg tablet 112 mcg PO DAILY #60 tabs 08/31/23 10/28/23 Rx famotidine 20 mg tablet 20 mg PO BID #60 tabs 09/02/23 10/28/23 Rx metoprolol tartrate 50 mg tablet 50 mg PO BID #60 tabs 09/05/23 10/28/23 Rx denosumab 60 mg/mL subcutaneous 60 mg subcut Q6MO #1 mL 09/20/23 10/28/23 Rx syringe allopurinol 300 mg tablet 300 mg PO AMPM 10/28/23 10/28/23 History furosemide 40 mg tablet 80 mg PO BID 10/28/23 10/28/23 History Patient History Medical History (Updated 10/30/23 @ 09:15 by Jovanna Mariano MD) Nephrotic syndrome Microscopic hematuria Proteinuria Acute kidney injury Elevated troponin Personal history of diabetic foot ulcer Diabetic peripheral neuropathy associated with type 2 diabetes mellitus Paroxysmal atrial fibrillation Proliferative glomerulonephritis with nephrotic syndrome Mitral regurgitation Bilateral leg edema Long-term current use of tacrolimus Thrombocytopenia Atrial fibrillation with RVR Hyperparathyroidism Osteoporosis Hypothyroidism Polycystic kidney disease HX > DR. ROCK > [facility] > DR[facility] SUAREZ [facility] [place] Macular degeneration BILAT History of dysplastic nevus Hypercholesteremia HTN (hypertension) Gastric ulcer RESOLVED Atrial fibrillation DX 2013 > NO CARDIOVERSIONS Surgical History History of tonsillectomy History of squamous cell carcinoma in situ of skin WITH REMOVAL TO HEAD Hx of cholecystectomy History of hysterectomy Kidney transplant recipient RIGHT > 1995 History of renal transplant (07/02/11) Family History Mother Diabetes Father Kidney disease Hypertension Son Kidney disease Sister Kidney disease Aunt Breast cancer Denies family history of Ovarian cancer Prostate cancer Myocardial infarction Colorectal cancer Social History Smoking Status: Never smoker Tobacco Type: Cigarettes Second Hand Exposure: No; Do You Dip or Chew Tobacco: No; Hx Alcohol Use: No Hx Substance Use: No Preferred Language: Portuguese Communication Ability: Effective Visual Impairment: No Limitations Hearing Ability: Normal Shoveler Required: No Beliefs That Will Affect Care: None marital status: Current Living Situation: Spouse and Family Current Living Situation Comment: Lives at home with current occupational status: retired Feels Safe at Home: Yes Diet: low salt caffeine: No Dental Care, Regularly: Yes Physical Activity Frequency: Does not Exercise Seatbelt Use: always Sunscreen Use: Yes Assistive Devices: Walker Physical Exam Physical Exam: In general this is a well-developed well-nourished white female in no acute distress. HEENT exam is negative. Neck is supple with full carotid upstrokes. There are no carotid bruits. No jugular venous distension. There is no thyromegaly. Cardiovascular exam reveals an irregular rhythm with distant heart sounds. A 2/6 basal systolic ejection murmur is noted. A 1/6 decrescendo diastolic murmur noted. No S3. Lungs note distant breath sounds but no rales. Abdomen is obese without bruits. Extremities reveal intact radial artery pulses bilaterally. Lower extremities are wrapped. Results & Data Vital Signs (Past 12 Hours) Vital Signs Temp Pulse Pulse Resp BP BP Pulse Ox 10/30/23 11:24 36.6 C 92 H 19 115/70 96 10/30/23 10:52 99 H 18 96 10/30/23 08:00 93 H 10/30/23 07:26 36.6 C 89 19 124/78 96 10/30/23 07:15 99 H 18 94 10/30/23 02:52 36.6 C 95 H 18 118/70 94 O2 Del Method O2 Flow Rate 10/30/23 11:24 Nasal Cannula 2 10/30/23 10:52 Nasal Cannula 2 10/30/23 08:00 10/30/23 07:26 Room Air 10/30/23 07:15 Nasal Cannula 2 10/30/23 02:52 Room Air Laboratory Results CBC notes hemoglobin 14.2, hematocrit 42.9, white count 8.2, and platelet count 76282. Electrolytes note a sodium of 138, potassium 4.3, chloride 103, bicarb 27, BUN 69, creatinine 1.7, glucose of 78. High sensitivity troponin on presentation was 34.1 with a follow-up value of 39.7. Diagnostic Findings quality control microbiologist notes atrial fibrillation with a controlled ventricular response. PG Care Time/CCT Total # of Minutes Spent Total Time Spent with Patient: Total time spent is greater than 50% in coordination of care (as documented) at patient's floor/unit and/or counseling patient: Coding Level of Care Code 31063 INT INP/OBS CARE 3/75MIN Diagnoses Acute exacerbation of CHF (congestive heart failure) I50.9 Heart failure type: unspecified Paroxysmal atrial fibrillation I48.91 (1) Acute exacerbation of CHF (congestive heart failure) Heart failure type: unspecified Qualified Code(s): I50.9 - Heart failure, un specified
--- NOTE | 2023-10-30 12:08 | Nephrology Progress Note ---
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 40lbs weight gain, bilateral lower extremity edema and left upper extremity edema. She was noted to have 1 episode of fever and there was concern for aspiration and pulmonary infiltrate and currently on empiric antibiotic coverage. At home she was on Lasix 80 mg twice daily and on admission switch to 80 mg IV twice a day and urine output was 875 mL over last 24 hours. Has h/o MGRS and she was treated with cycles of CyBorD in 2018 On admission creatinine was 1.6 and stayed relatively stable overnight creatinine was 1.5 with BUN 65. Although there is concern for dietary indiscretion with high salt in diet wonder whether that is only to blame. Concern for recurrence of MGRS, other underlying glomerular disease including allograft nephropathy. She had multiple hospitalization over last 1 year and previously had detailed discussion with Trans[facility] Ne[facility] at [facility], and since 24 hour urine proteinuria less than 1 g, renal function relatively stable, renal allograft biopsy was not considered. NS most likely secondary to monoclonal gammopathy of renal significance or underlying proliferative glomerulonephritis. Although she is significantly edematous but she is most likely intravascularly volume contracted with significantly elevated BUN and much higher hemoglobin than her baseline with albumin 2.9. -- Increase Lasix to 160 mg IV twice a day, metolazone 5 mg in a.m. If no improvement in urine output next several hours, will consider Bumex drip. High risk for worsening renal function with aggressive diuresis -- IV albumin 25 gm TID -- continue on tacrolimus 0.5 mg twice a day and CellCept 250 mg twice a day. -- Continue to keep leg and upper extremity elevated, consider using compression stocking for lower extremity, follow low-salt diet. Admission and Anticipated Discharge Date Admission Date: October 28, 2023 Codie Awad was seen and evaluated this morning. She feels somewhat worse today, has been getting more short of breath. Overall volume status seems to have worsened and an remained net positive fluid urine output about 500 mL overnight on IV diuretics. Slight change in creatinine noted but electrolyte remain acceptable. Blood pressure fair. There was some concern for confusion as well. Review of Systems Review of Systems: Detailed review of system was done and pertinent positives and negatives were mentioned above. Physical Exam Constitutional: WD/WN, vitals as above + acute distress and + ill appearing Neck: normal visual inspection Respiratory: normal respiratory effort and + cough Auscultation: lungs clear to auscultation bilaterally and + crackles (b/l bases); no wheezes Cardiovascular: Rate/Rhythm: regular rate and regular rhythm Heart Sounds: normal S1 and normal S2 Extremities: + edema (2+ b/l LE edema and 3+ left UE edema) Neurologic: no focal motor deficits Psychiatric: Orientation: alert and oriented x 3 Results & Data Vital Signs (Past 12 Hours) Vital Signs Temp Pulse Pulse Resp BP BP Pulse Ox 10/30/23 11:24 36.6 C 92 H 19 115/70 96 10/30/23 10:52 99 H 18 96 10/30/23 08:00 93 H 10/30/23 07:26 36.6 C 89 19 124/78 96 10/30/23 07:15 99 H 18 94 10/30/23 02:52 36.6 C 95 H 18 118/70 94 O2 Del Method O2 Flow Rate 10/30/23 11:24 Nasal Cannula 2 10/30/23 10:52 Nasal Cannula 2 10/30/23 08:00 10/30/23 07:26 Room Air 10/30/23 07:15 Nasal Cannula 2 10/30/23 02:52 Room Air PG Care Time/CCT Total # of Minutes Spent Total Time Spent with Patient: Total time spent is greater than 50% in coordination of care (as documented) at patient's floor/unit and/or counseling patient: Coding Level of Care Code 40872 SUB INP/OBS CARE 235MIN Diagnoses Nephrotic syndrome N04.9 Acute respiratory distress R06.03 Primary hypertension I10 Hypertension type: primary hypertension Hyperparathyroidism E21.3 Anemia D64.9 Anemia type: unspecified type Polycystic kidney disease Q61.3 (3) HTN (hypertension) Hypertension type: primary hypertension Qualified Code(s): I10 - Essential (primary) hypertension (5) Anemia Anemia type: unspecified type Qualified Code(s): D64.9 - Anemia, unspecified
--- NOTE | 2023-10-30 15:35 | Communication Note ---
Date of Service: October 30, 2023 Seen on 1E, on PCU status. Looks a little better, states breathing a little better. Chest still very congested. I can't tell whether UOP has picked up based on charting. She denies history of MARIA ESTHER. -continue current diuretics -IS and acapella -stat abg to evaluate hypercarbia/respiratory failure if worsening clinical status wrt breathing or mentation
[2023-10-31] MEDS: MEROPENEM 500 MG in SYRINGE 0 ML IV SCH (01:36)
[2023-10-31 04:33] LABS: Hematocrit (blood only) 46.9 % (37.0-47.0); Hemoglobin 15.3 g/dl (12.0-16.0); Mean Corpuscular Hgb Conc 32.6 g/dL (32.0-36.0); Mean Corpuscular Volume 95.1 fL (80.0-100.0); Nucleated RBC # (auto) 0.02 K/uL (0.00-0.12); Nucleated RBC % (auto) 0.2 %; Platelet Count 73 K/uL (130-400); RDW Coefficient of Variation 22.4 % (11.5-14.5); RDW Standard Deviation 76.6 fL (36.4-46.3); Red Blood Count 4.93 M/uL (4.20-5.40); White Blood Count 8.45 K/ul (4.8-10.8)
[2023-10-31 04:35] LABS: Albumin Globulin Ratio 2.9 (0.9-2); Albumin Level 3.8 gm/dl (3.4-5.0); BUN Creatinine Ratio 40.2 (10-20); Bilirubin,Total 1.1 mg/dl (0.2-1.0); Calcium 8.5 mg/dl (8.6-10.3); Creatinine Clr Calc Pharmacy 33.1 ml/min; Est GFR (African American) 32.4 ml/min; Globulin 1.3 gm/dl (2.5-4.0); Potassium 4.9 mmol/L (3.5-5.1); Total Protein 5.1 gm/dl (6.0-8.3)
[2023-10-31] MEDS: ALBUMIN 25% 25 GM/100 ML VIAL IV SCH (04:38)
[2023-10-31] MEDS: LEVOTHYROXINE SODIUM 112 MCG TABLET PO SCH (06:11)
--- NOTE | 2023-10-31 07:24 | Hospitalist Progress Note ---
Date of Service October 31, 2023 Assessment & Plan (1) Encounter for palliative care: Plan: Comfort measures I notified her by phone, BUILDING SERVICES TECHNICIAN spoke with her daughter, family is gathering today -stop medications that are not providing for comfort -IV hydromorphone push and drip as needed for pain/dyspnea, IV lorazepam as needed for dyspnea/anxiety -robinul or scopolamine prn control of secretions (2) Acute respiratory failure: Plan: Due to progressive fluid overload setting of severe nephrosis, renal transplant Acute hypercarbic and hypoxic respiratory failure -I saw her with school bus driver/mechanic and BUILDING SERVICES TECHNICIAN this am, appeared to need urgent intubation and MV to attempt to temporize to continue treatment for underlying conditions. She was not consistently alert enough for safe trial of NIV. However she was clear in her wishes (also previously document) not to undergo intubation or other aggressive interventions and requested to be kept comfortable. (3) Acute encephalopathy: Plan: acute toxic and/or metabolic encephalopathy multiple contributing factors including sepsis, renal failure, and ultimately progressive respiratory failure -stopped cefepime and changed to meropenem, could have cefepime neurotoxicity high risk because of renal dysfunction -vbg abnormal with pH 7.27 and pCO2 elevated at 58 on 10/30 and transferred to PCU. Has obesity, not known to have MARIA ESTHER. (4) Fever: Plan: Sepsis due to pseudomonas bacteremia - leukocytosis with WBC 16K, mild lactate and PCT elevation, worsened thrombocytopenia Sources: L forefoot cellulitis/wound infection wound culture growing pseudomonas, UTI ruled out. less likely pneumonia. resp Biofire neg, correction: UA was negative, culture not submitted -antibiotics this admission cefepime --> meropenem. consulted ID today and planned change to pip-tazo, now discontinued -repeat blood cultures for clearance 10/29 - P (5) Kidney transplant recipient: Plan: DDRT with CKD 3, nephrotic syndrome with severe volume overload unresponsive to diuretics. Has had severe edema for the past year. Consulted nephrology this admission -was on tacrolimus and MMF (6) CHF (congestive heart failure): Plan: Acute on chronic diastolic heart failure. mild LVH. Manager Global Dr. Dasilva consulted this admission and aware. Severe volume overload on admission with 44# weight gain, anasarca, pulmonary edema Echo 10/28: normal LVEF 60-65% no rwma's, RV fxn mildly reduced moderately dilated elevated RV pressure, mild-mod MR, mild dilation of IVC all c/w volume overload Mild HS troponin elevation to 35 demand ischemia related to volume overload no evidence of ACS, no rwma's on echo (7) Chronic venous insufficiency: Plan: 10/26 Underwent LLE venous ablation by Dr. Downs. LLE swelling significantly improved since then -LE duplex due to r/o postprocedural thrombosis - ordered, then cancelled because of comfort care decision. I notified Dr. Downs. Follows with wound clinic - reviewed photos - extensive marielos LE venous stasis disease with bilateral LE venous stasis ulcers, wounds L 2/3rd toes, purplish spots on L toes especially, alicia purplish forefeet unchanged excepting L forefoot seems cellulitic with wound infection -culture L toes wound reviewed see above -consulted wound nurse -no LLE compression wrap for now, infected -contnue wound care (8) Venous ulcers of both lower extremities: Plan: present on admission, see above (9) Morbid obesity with BMI of 40.0-44.9, adult: Plan: I am concerned for underlying MARIA ESTHER/OHS provoking hypercarbia (10) Atrial fibrillation: (11) HTN (hypertension): (12) Hypothyroidism: (13) Mitral regurgitation: Plan: mild (14) Thrombocytopenia: (15) Polycystic kidney disease: (16) HLD (hyperlipidemia): (17) Diabetes: Plan: stopped insulin / BG checks (18) Long-term current use of tacrolimus: (19) Monoclonal gammopathy: Plan: -Hx of monoclonal gammopathy, s/p 6 cycles CyBorD. -[facility] Plan Other problems this admission chronic gout thrombocytopenia Admission and Anticipated Discharge Date Admission Date: October 28, 2023 Subjective Seen this morning, was increasingly short of breath tachypneic and lethargic through the night. Diuretics had been ineffective, UOP remained very low. She decided for comfort measures (see my note from this am). Physical Exam 2 Physical Exam: PHYSICAL EXAMINATION Last 24h vital signs reviewed, see documentation in flowsheet General: ill-appearing woman, looks much worse today, extremely weak HEENT: Normocephalic, atraumatic, pupils round and equal, sclerae anicteric, mild marielos conjunctival injection, dry mucus membranes Lungs: labored and shallow respiratory effort. very tachypneic, persistent coarse/gurgly lung sounds. Heart: Regular obscured by breath sounds Abdomen: Soft, nontender, nondistended. Severe edema of abdominal wall/pannus unchanged Extremities: Warm, dry, bilateral lower extremity edema, both legs less edematous due to wrapping. pannus/thighs and LUE extremely edematous, weeping edema LUE. LUE is cool, other ext are warm Neuro: Alert and oriented x hospital and fully to situation but some intermittent confusion per nursing, nonetheless stayed awake for prolonged conversation with me this AM and was very clear about her wishes, face symmetric, speech intact Psych: Normal affect and behavior Results & Data Results & Data Vital Signs (Past 12 Hours) Vital Signs Temp Pulse Pulse Resp BP Pulse Ox O2 Del Method 10/31/23 05:00 37 C 87 22 95 10/31/23 05:00 118/66 10/31/23 04:30 91 H 25 H 98 10/31/23 04:30 104/69 10/31/23 04:00 89 23 94 10/31/23 03:00 119/61 10/31/23 03:00 86 94 10/31/23 02:30 121/65 10/31/23 02:30 91 H 23 95 10/31/23 02:00 92 H 24 95 10/31/23 02:00 121/69 10/31/23 01:30 126/64 10/31/23 01:30 94 H 23 96 10/31/23 01:00 82 25 H 96 10/31/23 01:00 117/61 10/31/23 00:30 94 H 21 96 10/31/23 00:30 124/63 10/31/23 00:00 96 H 27 H 96 10/30/23 23:55 94 H 24 96 10/30/23 21:30 87 24 93 10/30/23 21:30 133/68 10/30/23 21:00 94 H 30 H 93 10/30/23 20:30 126/73 10/30/23 20:30 104 H 33 H 93 10/30/23 20:00 97 H 24 94 10/30/23 20:00 Nasal Cannula 10/30/23 19:30 131/68 10/30/23 19:30 98 H 27 H 94 10/30/23 19:24 91 H 18 93 Nasal Cannula O2 Flow Rate 10/31/23 05:00 10/31/23 05:00 10/31/23 04:30 10/31/23 04:30 10/31/23 04:00 10/31/23 03:00 10/31/23 03:00 10/31/23 02:30 10/31/23 02:30 10/31/23 02:00 10/31/23 02:00 10/31/23 01:30 10/31/23 01:30 10/31/23 01:00 10/31/23 01:00 10/31/23 00:30 10/31/23 00:30 10/31/23 00:00 10/30/23 23:55 10/30/23 21:30 10/30/23 21:30 10/30/23 21:00 10/30/23 20:30 10/30/23 20:30 10/30/23 20:00 10/30/23 20:00 2 10/30/23 19:30 10/30/23 19:30 10/30/23 19:24 2 Laboratory Results 10/31/23 03:32 10/31/23 03:32 PG Care Time/CCT Total # of Minutes Spent Total Time Spent with Patient: Total time spent on clinical care today: 75 minutes Coding Level of Care Code 83514 SUB INP/OBS CARE 3/50MIN Diagnoses Encounter for palliative care Z51.5 Acute respiratory failure J96.00 Acute encephalopathy G93.40 Fever R50.9 Kidney transplant recipient Z94.0 CHF (congestive heart failure) I50.9 Chronic venous insufficiency I87.2 Venous ulcers of both lower extremities I83.019; I83.029; L97.919; L97.929 Morbid obesity with BMI of 40.0-44.9, adult E66.01; Z68.41 Paroxysmal atrial fibrillation I48.91 Primary hypertension I10 Hypertension type: primary hypertension Hypothyroidism, unspecified type E03.9 Hypothyroidism type: unspecified Mitral regurgitation I34.0 Thrombocytopenia D69.6 Polycystic kidney disease Q61.3 HLD (hyperlipidemia) E78.5 Diabetes E11.9 Long-term current use of tacrolimus Z79.899 Monoclonal gammopathy D47.2 (11) HTN (hypertension) Hypertension type: primary hypertension Qualified Code(s): I10 - Essential (primary) hypertension (12) Hypothyroidism Hypothyroidism type: unspecified Qualified Code(s): E03.9 - Hypothyroidism, unspecified
[2023-10-31] MEDS: ALBUTEROL HFA 8 GM INHALER INH SCH ×2 (07:47→10:02)
[2023-10-31] MEDS: INSULIN ASPART PER UNIT CHARGE SC SCH (08:27)
[2023-10-31] MEDS: metOLazone 5 MG TABLET PO SCH (08:28)
[2023-10-31] MEDS ORDERED: BUMETANIDE 0.5 MG in DEXTROSE 5% 10 ML IV SCH (09:00)
[2023-10-31] MEDS: FUROSEMIDE 160 MG in SODIUM CHLORIDE 0.9% 50 ML IV SCH (09:05)
[2023-10-31] MEDS: METOPROLOL TARTRATE 50 MG TAB PO SCH (09:06)
[2023-10-31] MEDS: TACROLIMUS 0.5 MG CAP PO SCH (09:06)
[2023-10-31] MEDS: MAGNESIUM OXIDE 400 MG TAB PO SCH (09:06)
[2023-10-31] MEDS: FAMOTIDINE 20 MG TAB PO SCH ×2 (09:06→20:02)
[2023-10-31] MEDS: FOLIC ACID 1 MG TAB PO SCH (09:07)
[2023-10-31] MEDS: APIXABAN 5 MG TABLET PO SCH (09:07)
[2023-10-31] MEDS: MYCOPHENOLATE MOFETIL 250 MG CAP PO SCH (09:07)
[2023-10-31] MEDS: allopurinoL 100 MG TAB PO SCH ×2 (09:07→20:01)
[2023-10-31] MEDS ORDERED: BUMETANIDE 10 MG in DEXTROSE 5% 10 ML IV SCH (09:15)
[2023-10-31 09:18] VITALS: BP 127/77
[2023-10-31 09:19] VITALS: TEMP 98.1
[2023-10-31] MEDS ORDERED: PIPER/TAZO 4.5g in D5W MINI-B 100 ML IV ONE (10:00)
[2023-10-31 10:04] VITALS: PULSE 74; O2SAT 95
--- NOTE | 2023-10-31 10:22 | Nephrology Progress Note ---
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 40lbs weight gain, bilateral lower extremity edema and left upper extremity edema. She was noted to have 1 episode of fever and there was concern for aspiration and pulmonary infiltrate and currently on empiric antibiotic coverage. At home she was on Lasix 80 mg twice daily and on admission switch to 80 mg IV twice a day and urine output was 875 mL over last 24 hours. Has h/o MGRS and she was treated with cycles of CyBorD in 2019 On admission creatinine was 1.6 and stayed relatively stable overnight creatinine was 1.5 with BUN 65. Although there is concern for dietary indiscretion with high salt in diet wonder whether that is only to blame. Concern for recurrence of MGRS, other underlying glomerular disease including allograft nephropathy. She had multiple hospitalization over last 1 year and previously had detailed discussion with Transplant Nephrology at [facility], and since 24 hour urine proteinuria less than 1 g, renal function relatively stable, renal allograft biopsy was not considered. NS most likely secondary to monoclonal gammopathy of renal significance or underlying proliferative glomerulonephritis. Although she is significantly edematous but she is most likely intravascularly volume contracted with significantly elevated BUN and much higher hemoglobin than her baseline with albumin 2.9. Progressive worsening of volume status, UO low. --Start on Bumex drip, increase if UO remains low. High risk for worsening renal function with aggressive diuresis, may need to consider UF if no improvement in volume status. -- continue on tacrolimus 0.5 mg twice a day and CellCept 250 mg twice a day. -- Continue to keep leg and upper extremity elevated, consider using compression stocking for lower extremity, follow low-salt diet. Admission and Anticipated Discharge Date Admission Date: October 28, 2023 Codie Awad was seen and evaluated this morning in PCU, she was transferred yesterday for worsening respiratory status. She has been more short of breath. Overall volume status worsened and an remained net positive fluid with urine output low on Lasix 160 mg IV. Slight change in creatinine noted but electrolyte remain acceptable. Blood pressure fair. Review of Systems Review of Systems: Detailed review of system was done and pertinent positives and negatives were mentioned above. Physical Exam Constitutional: WD/WN, vitals as above + acute distress and + ill appearing Eyes: + anicteric sclerae Neck: normal visual inspection Respiratory: normal respiratory effort and + cough Auscultation: lungs clear to auscultation bilaterally and + crackles (b/l bases); no wheezes Cardiovascular: Rate/Rhythm: regular rate and regular rhythm Heart Sounds: normal S1 and normal S2 Extremities: + edema (2+ b/l LE edema and 3+ left UE edema) Neurologic: no focal motor deficits Psychiatric: Orientation: alert and oriented x 3 Results & Data Vital Signs (Past 12 Hours) Vital Signs Temp Pulse Pulse Resp BP Pulse Ox Pulse Ox 10/31/23 10:02 74 18 95 10/31/23 09:19 36.7 C 10/31/23 09:00 94 H 26 H 92 10/31/23 09:00 127/77 10/31/23 08:00 99 H 28 H 97 10/31/23 08:00 10/31/23 07:48 74 18 97 10/31/23 07:00 89 26 H 94 10/31/23 07:00 123/81 10/31/23 07:00 97 10/31/23 05:00 37 C 87 22 95 10/31/23 05:00 118/66 10/31/23 04:30 91 H 25 H 98 10/31/23 04:30 104/69 10/31/23 04:00 89 23 94 10/31/23 03:00 119/61 10/31/23 03:00 86 94 10/31/23 02:30 121/65 10/31/23 02:30 91 H 23 95 10/31/23 02:00 92 H 24 95 10/31/23 02:00 121/69 10/31/23 01:30 126/64 10/31/23 01:30 94 H 23 96 10/31/23 01:00 82 25 H 96 10/31/23 01:00 117/61 10/31/23 00:30 94 H 21 96 10/31/23 00:30 124/63 10/31/23 00:00 96 H 27 H 96 10/30/23 23:55 94 H 24 96 O2 Del Method O2 Del Method O2 Flow Rate O2 Flow Rate 10/31/23 10:02 Nasal Cannula 3 10/31/23 09:19 10/31/23 09:00 10/31/23 09:00 10/31/23 08:00 Nasal Cannula 3 10/31/23 08:00 Nasal Cannula 2 10/31/23 07:48 Nasal Cannula 6 10/31/23 07:00 10/31/23 07:00 10/31/23 07:00 Nasal Cannula 3 10/31/23 05:00 10/31/23 05:00 10/31/23 04:30 10/31/23 04:30 10/31/23 04:00 10/31/23 03:00 10/31/23 03:00 10/31/23 02:30 10/31/23 02:30 10/31/23 02:00 10/31/23 02:00 10/31/23 01:30 10/31/23 01:30 10/31/23 01:00 10/31/23 01:00 10/31/23 00:30 10/31/23 00:30 10/31/23 00:00 10/30/23 23:55 PG Care Time/CCT Total # of Minutes Spent Total Time Spent with Patient: Total time spent is greater than 50% in coordination of care (as documented) at patient's floor/unit and/or counseling patient: Coding Level of Care Code 55086 SUB INP/OBS CARE 3/50MIN Diagnoses Nephrotic syndrome N04.9 Acute respiratory distress R06.03 Primary hypertension I10 Hypertension type: primary hypertension Hyperparathyroidism E21.3 Anemia D64.9 Anemia type: unspecified type Polycystic kidney disease Q61.3 (3) HTN (hypertension) Hypertension type: primary hypertension Qualified Code(s): I10 - Essential (primary) hypertension (5) Anemia Anemia type: unspecified type Qualified Code(s): D64.9 - Anemia, unspecified
--- NOTE | 2023-10-31 11:09 | Communication Note ---
Date of Service: October 31, 2023 No effective diuresis thus far, continues to have severe volume overload, bumex changed to drip, ID consulted and abx to pip-tazo all this morning. This morning Delmi has progressed to overt respiratory failure. She is sleepy and lethargic but was able to have a sustained and detailed conversation with me. I explained that the only way to keep trying to turn this around would be to proceed with intubation and mechanical ventilation at this time. She was able to clearly tell me that she does not want intubation and ventilation and that she is "ready to go" and wants to be kept comfortable at this time. I confirmed the discussion she had with the admitting team she says she is DNR/DNI and "its on my medical paperwork." She says her is aware of this decision that they talked about it before. I called Marcial her and notified him of Delmi's deterioration and her decision and that she would pass away soon. He voiced acceptance and understanding, was not surprised, said he would come in to the hospital with his son later today.
[2023-10-31] MEDS ORDERED: LORazepam 0.5 MG in SYRINGE 0.25 ML IV PRN (11:22)
[2023-10-31] MEDS ORDERED: LORazepam 0.5 MG TAB PO PRN (11:22)
[2023-10-31] MEDS ORDERED: HYDROmorphone BOLUS from BAG IV PRN (11:22)
[2023-10-31] MEDS ORDERED: ATROPINE SULFATE 1% OP SOLN 5 ML BTL SL PRN (11:22)
[2023-10-31] MEDS ORDERED: ONDANSETRON 4 MG OD TAB SL PRN (11:22)
[2023-10-31] MEDS ORDERED: HYDROmorphone INJ 0.5 MG/0.5 ML SYR IV PRN (11:22)
[2023-10-31] MEDS ORDERED: GLYCOPYRROLATE 0.2 MG/ML VIAL IV PRN (11:22)
[2023-10-31] MEDS ORDERED: ACETAMINOPHEN 650 MG SUPP PR PRN (11:22)
--- NOTE | 2023-10-31 11:27 | Communication Note ---
Date of Service: October 31, 2023 Infectious diseases was initially consulted today for PsA bacteremia and PsA and MSSA wound infection. However, the hospitalist Dr. Mariano provided an update that the pts respiratory failure had worsened and that she will be transitioning to comfort care per the patient's goals of care (please see communication note by Dr. Mariano today at 11:04 am). If questions, please contact the [facility] call center at [phone]. Bonny Mitchell MD, MHS Infectious Diseases [facility]/ID Connect ID Connect direct line: [phone]
[2023-10-31] MEDS ORDERED: HYDROmorphone/NSS 100 MG/100 ML BAG IV SCH (11:30)
--- NOTE | 2023-10-31 14:53 | Cardiology Progress Note ---
Date of Service October 31, 2023 Assessment & Plan (1) Acute exacerbation of CHF (congestive heart failure): Plan: -significant weight gain prior to this hospitalization. -dietary indiscretion with salt likely a factor. -diuretic management per Nephrology. -she is not making much urine. -clearly she is experiencing pulmonary edema. -she is being transition to comfort care per discussion with Dr. Mariano. (2) Atrial fibrillation: Plan: -rate now adequately controlled. -continue rate control and long-term anticoagulation. Admission and Anticipated Discharge Date Admission Date: October 28, 2023 Subjective The patient was seen in the ICU this morning. She had audible wheezing, but said I am doing okay. No chest discomfort. Physical Exam Physical Exam: In general this is a well-developed well-nourished white female in no acute distress. HEENT exam is negative. Neck is supple with full carotid upstrokes. There are no carotid bruits. No jugular venous distension. There is no thyromegaly. Cardiovascular exam reveals an irregular rhythm with distant heart sounds. A 2/6 basal systolic ejection murmur is noted. A 1/6 decrescendo diastolic murmur noted. No S3. Lungs note scattered inspiratory and expiratory wheezes. Abdomen is obese without bruits. Extremities reveal intact radial artery pulses bilaterally. Lower extremities are wrapped. Results & Data Vital Signs (Past 12 Hours) Vital Signs Temp Pulse Pulse Resp BP Pulse Ox Pulse Ox 10/31/23 10:02 74 18 95 10/31/23 09:19 36.7 C 10/31/23 09:00 94 H 26 H 92 10/31/23 09:00 127/77 10/31/23 08:00 89 10/31/23 08:00 99 H 28 H 97 10/31/23 08:00 10/31/23 07:48 74 18 97 10/31/23 07:00 89 26 H 94 10/31/23 07:00 123/81 10/31/23 07:00 97 10/31/23 05:00 37 C 87 22 95 10/31/23 05:00 118/66 10/31/23 04:30 91 H 25 H 98 10/31/23 04:30 104/69 10/31/23 04:00 89 23 94 10/31/23 03:00 119/61 10/31/23 03:00 86 94 O2 Del Method O2 Del Method O2 Flow Rate O2 Flow Rate 10/31/23 10:02 Nasal Cannula 3 10/31/23 09:19 10/31/23 09:00 10/31/23 09:00 10/31/23 08:00 10/31/23 08:00 Nasal Cannula 3 10/31/23 08:00 Nasal Cannula 2 10/31/23 07:48 Nasal Cannula 6 10/31/23 07:00 10/31/23 07:00 10/31/23 07:00 Nasal Cannula 3 10/31/23 05:00 10/31/23 05:00 10/31/23 04:30 10/31/23 04:30 10/31/23 04:00 10/31/23 03:00 10/31/23 03:00 Diagnostic Findings playground monitor notes rate controlled atrial fibrillation PG Care Time/CCT Total # of Minutes Spent Total Time Spent with Patient: Total time spent is greater than 50% in coordination of care (as documented) at patient's floor/unit and/or counseling patient: Coding Level of Care Code 85457 SUB INP/OBS CARE 3/50MIN Diagnoses Acute exacerbation of CHF (congestive heart failure) I50.9 Heart failure type: unspecified Paroxysmal atrial fibrillation I48.91 (1) Acute exacerbation of CHF (congestive heart failure) Heart failure type: unspecified Qualified Code(s): I50.9 - Heart failure, unspecified
[2023-10-31] MEDS ORDERED: PIPER/TAZO 4.5g in D5W MINI-B 100 ML IV SCH (15:00)
[2023-11-01 07:00] VITALS: RESP 12
--- NOTE | 2023-11-01 10:15 | Discharge Summary ---
Date of Service November 01, 2023 Admission HPI Per Admitting Provider Delmi is a 77 year old female w/ PmHx diabetic CKD w/ renal transplant 1995, T2DM, atrial fibrillation on Eliquis, hypothyroidism, hyperlipidemia, gout, hyperparathyroidism, chronic venous stasis and lower extremity edema coming in for increased shortness of breath and increased swelling. Patient states that over the past week she's had increased shortness of breath with exertion but not as much at rest as she is still able to sleep without issue. At this time her most pressing concern is her pain related to her sacrum as there is a spot on the R that is causing her intense pain as she has been sitting on it for a while. She denies feeling feverish or chills, denies any diarrhea, dysuria, urinary incontinence, urinary frequency. She was recently admitted to the hospital in May-June for fluid overload. She had a fall back in June after her discharge which led her to stay on the ground for a while until someone found her. She feels like she has gained some weight since that time. In the ER WBC 16.19, Hgb 17.3, platelet 111, creatinine 1.60, lactate 2.2, T bili 1.6, troponin 39.7, procal 0.56. CXR diffuse opacification of the left and right lower lung daly. Discharge Data Allergies Allergy/AdvReac Type Severity Reaction Status Date / Time adhesive Allergy Intermediate ERYTHEMA Verified 10/19/23 10:47 WITH ADHESIVE TAPE, blisters Consultations 10/28/23 03:12 ED Decision to Admit Stat 10/28/23 08:23 Consult Nephrology Routine 10/30/23 09:17 Consult Cardiology Routine 10/31/23 08:44 Consult Infectious Diseases Routine Discharge Plan Discharge Items Reason For Visit: SHORTNESS OF BREATH Follow-up/Referrals: Jennifer Crum MD [Primary Care Provider] - Medications and DC Order Prescriptions: No Action multivitamin Tablet 1 tab PO QAM Qty: 0 omega [id number] oil [Fish Oil] 1,000 mg (120 mg-180 mg) Capsule 1,000 mg PO BID Qty: 0 folic acid 1 mg Tablet 1 mg PO QAM Qty: 0 lutein 20 mg Capsule 20 mg PO QPM Qty: 0 (DME) pen needle, diabetic [BD Ultra-Fine Germania Pen Needle] 32 gauge x 5/32" needle See Rx Instructions .Route Qty: 100 3RF Rx Instructions: Inject insulin daily as directed insulin glargine [Lantus Solostar U-100 Insulin] 100 unit/mL (3 mL) insulin pen 5 unit SUBCUT QAM Qty: 15 3RF (DME) blood sugar diagnostic Strip See Rx Instructions .ROUTE .MEDSUPPLY Qty: 100 1RF Rx Instructions: Test 4 times daily Eliquis 5 mg tablet 5 mg PO BID Qty: 180 3RF magnesium oxide 400 mg (241.3 mg magnesium) tablet 400 mg PO BID Qty: 180 3RF simvastatin 20 mg tablet 20 mg PO HS Qty: 90 3RF levothyroxine 112 mcg tablet 112 mcg PO DAILY Qty: 60 0RF famotidine 20 mg tablet 20 mg PO BID Qty: 60 5RF metoprolol tartrate 50 mg tablet 50 mg PO BID Qty: 60 11RF denosumab 60 mg/mL syringe 60 mg subcut Q6MO Qty: 1 1RF tacrolimus 0.5 mg capsule 0.5 mg PO Q12 fexofenadine [Mariya Allergy] 180 mg tablet 180 mg PO DAILY PRN (Reason: Allergy Symptoms) (DME) lancets [OneTouch Delica Plus Lancet] 33 gauge misc See Dose Instructions .ROUTE .MEDSUPPLY Qty: 100 Rx Instructions: As directed mycophenolate mofetil 250 mg capsule 250 mg PO Q12 albuterol sulfate 90 mcg/actuation HFA aerosol inhaler 1 inh inhalation QID lisinopril 5 mg tablet 5 mg PO DAILY Qty: 90 3RF acetaminophen 650 mg Tablet Extended Release 650 mg PO Q4H PRN (Reason: Pain) Ocuvite Adult 50 Plus 250 mg (90 mg-160 mg) Capsule 1 cap PO BID allopurinol 300 mg tablet 300 mg PO AMPM Rx Instructions: bid per pt furosemide 40 mg tablet 80 mg PO BID Admission Data Admit Date/Time: 10/28/23 04:38 Attending Provider: Hamlet Kellogg Admit Provider: Richy Welch Primary Care Provider: Jennifer Crum Other Providers: [facility]; Sallie Rogers; Meño Wilkinson; Jina Giraldo; Edin Collins; Briseida Calderon; Cooper Rutherford; Braxton Fontenot; Xavier Dasilva; Jimmy Carson; Nilo Ferrer; Milad Krause Jr; Will Breaux; Audrey Ellington; Porsche Arteaga; Tom Downs; Tom Cunningham; Seth Rocha; Alda Coffman; Sirena Andersen; Ken Coppola; Bandar Hernandez; Jimmy Duarte V.; J Carlos Faulkner; Alina Hawley; Oliver Edwards; Fouzia Cordero; Genevieve Styles; Ellen Yang; Amaya Giron; La Perez; Sony Nolan; Jovanna Hanson; Bonny Mitchell Coding
--- NOTE | 2023-11-01 10:15 | Death Pronouncement Note ---
Date of Service November 01, 2023 Pronouncement Note Admission Date October 28, 2023 Date and Time of Date of : 11/01/23 Time of : 09:23 Preliminary Cause of (1) Acute respiratory failure with hypoxia and hypercapnia: (2) Acute on chronic diastolic (congestive) heart failure: (3) Bacteremia due to Pseudomonas: (4) Wound of left foot: Additional Data Confirmation of : no pulse, no respirations, no heart sounds and pupils fixed and dilated Pronouncement Performed By: Attending Physician Family: contacted Attending/PCP notified?: Yes Attending physician: Hamlet Kellogg MD Was code activated?: No Autopsy requested?: No lens examiner notified?: No Coding Level of Care Code None Diagnoses Acute respiratory failure with hypoxia and hypercapnia J96.01; J96.02 Acute on chronic diastolic (congestive) heart failure I50.33 Bacteremia due to Pseudomonas R78.81; B96.5 Wound of left foot S91.302A
[2023-11-01] MEDS: FAMOTIDINE 20 MG TAB PO SCH (11:23)
[2023-11-01] MEDS: allopurinoL 100 MG TAB PO SCH (11:23)
== END 2023-11-01 12:23 | disposition expired | DRG 871 ==
LOC: ED 23:44 → SUATTDRO 10-28 04:38 → EDINP 10-28 04:38 → 2N 10-28 07:10 → 1E 10-30 14:29 → 3E 10-31 18:33